=== PATIENT | female | born 1955 | race Caucasian/White ===

== ENCOUNTER 2017-03-10 19:44 | Emergency (ER) | payer MEDICARE, MEDICAID ==
[2017-03-10 20:15] VITALS: BP 153/50
[2017-03-10] MEDS ORDERED: Sodium Chloride 0.9% 1,000 ML IV SCH (20:30)
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
[2017-03-10] MEDS: Sodium Chloride 0.9% 10 ML Syringe FLUSH PRN ×2 (20:51→22:39)
[2017-03-10] MEDS ORDERED: Sodium Chloride 0.9% 10 ML Syringe FLUSH ONE (22:01)
[2017-03-10] MEDS ORDERED: Iopamidol 612 MG/ML 100 ML Bottle IVPUSH ONE (22:01)
[2017-03-10] MEDS ORDERED: Diatrizoate Meglumine/Diatrizoate Sodium 37% 120 ML Bottle PO ONE (22:01)
--- NOTE | 2017-03-13 11:14 | CT ---
CT abdomen and pelvis Technique: Multiple axial sections were obtained from above the dome of the diaphragm inferiorly through the pubic symphysis. Intravenous contrast was utilized. Oral contrast has been given. Delayed images were obtained through the bladder. Comparison: Previous CT abdomen and pelvis exam of 12/12/14 is available. Findings: Liver has a nodular contour presumably representing cirrhosis. Spleen size is normal which appears less prominent in size than on prior CT exam. Slight varicosities are seen within the hilum of the spleen which are stable. Previous cholecystectomy is noted. Adrenal glands show no nodule. Kidneys appear within normal limits. Atherosclerotic change noted within the aorta and within the iliac vessels. No discrete abnormality within the area of the pancreas is seen. Small retroperitoneal lymph nodes are seen which appear stable. No mesenteric abnormalities are seen. No pelvic mass or adenopathy is noted. Appendix not definitely visualized. Scoliosis and degenerative change is seen within the spine. Impression: 1. Findings compatible with cirrhosis. Decreased size of the spleen from prior CT exam. Stable varicosities within splenic hilum. 2. Other incidental findings. Nothing acute is appreciated. Diagnostic code #3 Agree with preliminary report issued by [facility] ([facility] preliminary report dictated on 03/10/17, 11:52 PM Central Time)
== END 2017-03-10 23:28 | disposition home or self-care (01) ==
LOC: JD.ED 19:44
DX: K59.00 Constipation, unspecified (principal); I11.0 Hypertensive heart disease with heart failure; I50.9 Heart failure, unspecified; F31.9 Bipolar disorder, unspecified; F03.90 Unspecified dementia, unspecified severity, without behavioral disturbance, psychotic disturbance, mood disturbance, and anxiety; E11.9 Type 2 diabetes mellitus without complications; E03.9 Hypothyroidism, unspecified; Z90.49 Acquired absence of other specified parts of digestive tract; Z88.7 Allergy status to serum and vaccine; Z79.4 Long term (current) use of insulin; Z79.82 Long term (current) use of aspirin; Z79.899 Other long term (current) drug therapy
CPT/HCPCS: 74177; 96360; 96361; 99284; J7040; J7050; Q9963; Q9967

== ENCOUNTER 2017-08-30 06:53 | Emergency (ER) | payer MEDICARE, MEDICAID ==
[2017-08-30 07:13] VITALS: BP 167/55
[2017-08-30] MEDS ORDERED: Lidocaine/EPINEPHrine/Tetracaine Soln 1 ML TOP ONE (07:25)
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
[2017-08-30] MEDS ORDERED: Diphtheria,Pertussis(Acell),Tetanus Vaccine 0.5 ML SDV IM ONE (08:35)
[2017-08-30] MEDS ORDERED: Lidocaine 1% with EPINEPHrine 1:100,000 20 ML MDV INJECT ONE (09:27)
[2017-08-30] MEDS ORDERED: Lidocaine 1% with EPINEPHrine 1:100,000 20 ML MDV ONE (09:33)
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
== END 2017-08-30 10:00 | disposition home or self-care (01) ==
LOC: JD.ED 06:53
DX: S01.01XA Laceration without foreign body of scalp, initial encounter (principal); I10 Essential (primary) hypertension; E11.9 Type 2 diabetes mellitus without complications; Z79.82 Long term (current) use of aspirin; Z79.4 Long term (current) use of insulin; Z23 Encounter for immunization; Z79.899 Other long term (current) drug therapy; W01.10XA Fall on same level from slipping, tripping and stumbling with subsequent striking against unspecified object, initial encounter
CPT/HCPCS: 12002; 70450; 90471; 90715; 99284; A9270; 99282-25

== ENCOUNTER 2018-01-13 09:54 | Emergency (ER) | payer MEDICARE, MEDICAID ==
[2018-01-13 10:18] VITALS: BP 154/49
--- NOTE | 2018-01-13 10:54 | EDM.PDOC ---
ED HPI GENERAL MEDICAL PROBLEM - General Chief Complaint: Lower Extremity Injury/Pain Stated Complaint: ISSUES W/ CIRCULATION IN BOTH LEGS Time Seen by Provider: 01/13/18 10:48 Source of Information: Reports: Patient, Family (spouse) History Limitations: Reports: No Limitations - History of Present Illness INITIAL COMMENTS - FREE TEXT/NARRATIVE: 62-year-old female who is an insulin-dependent diabetic is sent over from [facility] due to lower extremity swelling and blister formation on toes and dorsal feet. By history she has chronic venous insufficiency continues to have her legs wrapped all time. They have stopped doing this. She clinically has severe hyperpigmentation in both lower extremities which is black in color. She has been diabetic for greater than 5 years. She is not known to have any arterial insufficiency. That think the concern arose as that she's developed a blister formation on the dorsal aspect of her left third toe and mid medial distal right calf. This is oozing serous material. There is no signs of infection either one of these wounds. Similarly she has developed a blister on the dorsal aspect of her right foot has opened up and draining serous material. She has no fever or chills. She relates her blood sugars are staying between 80 and 1:30. She has very tight control with NovoLog 4 times daily and Traseba at bedtime. 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 She apparently has an appointment to see Dr. Raygoza-brazer helper induction on Monday next week and Was her oncologist on Monday. She takes medication daily due to some form of bone marrow dysfunction. It's unclear whether this is due to leukemia or polycythemia rubra vera. She is also on Lasix 40 mg twice daily for chronic dependent edema. Onset: Gradual, Unknown/Unsure (I suspect many months.) Duration: Week(s): (Worse the last few days with blister formation on the feet.) Location: Reports: Lower Extremity, Left, Lower Extremity, Right Quality: Reports: Ache Severity: Moderate Improves with: Reports: None Worsens with: Reports: None Context: Reports: Other (Spontaneous occurrence.). Denies: Activity, Exercise, Lifting, Sick Contact, Trauma Associated Symptoms: Reports: No Other Symptoms. Denies: Confusion, Chest Pain , Cough, cough w sputum, Diaphoresis, Fever/Chills, Headaches, Loss of Appetite , Malaise, Nausea/Vomiting, Rash, Seizure, Shortness of Breath, Syncope - Related Data Allergies Allergy/AdvReac Type Severity Reaction Status Date / Time Influenza Virus Vaccines Allergy Anxiety Verified 01/13/18 10:15 Home Meds: Home Meds Acetaminophen 650 mg PO Q8H PRN 08/31/15 [History] Aspirin 81 mg PO DAILY 08/31/15 [History] Furosemide [Lasix] 40 mg PO BID 08/31/15 [History] Insulin Aspart [Novolog Flexpen] 3 units SUBCUT ASDIRECTED 08/31/15 [History] Insulin Aspart [Novolog Flexpen] 7 units SUBCUT BIDMEALS 08/31/15 [History] Levothyroxine Sodium [Synthroid] 100 mcg PO DAILY 08/31/15 [History] Losartan Potassium [Cozaar] 100 mg PO DAILY 08/31/15 [History] Loxapine Succinate [Loxapine] 25 mg PO DAILY 08/31/15 [History] Loxapine Succinate [Loxapine] 50 mg PO BEDTIME 08/31/15 [History] Metoprolol Succinate [Toprol XL] 25 mg PO DAILY 08/31/15 [History] cloNIDine [Catapres] 0.3 mg PO BID 08/31/15 [History] metFORMIN [Glucophage XR] 500 mg PO BIDMEALS 08/31/15 [History] traZODone 100 mg PO BEDTIME 08/31/15 [History] Dextran 70/Hypromellose [Artificial Tears] 1 each OP BID PRN 10/17/15 [History] Docosanol [Abreva 10%] 1 applic TOP Q6HR PRN 10/17/15 [History] Dextromethorphan/guaiFENesin [Robitussin DM] 10 ml PO Q4H PRN 10/02/16 [History] Imatinib Mesylate [Gleevec] 600 mg PO DAILY 10/02/16 [History] Hydrocodone/Acetaminophen [Hydrocodon-Acetaminophen 5-325] 1 tab PO Q4H PRN [History] Ibuprofen 600 mg PO TID PRN 08/30/17 [History] Memantine HCl [Namenda] 5 mg PO DAILY 08/30/17 [History] Nystatin [Nystatin Crm] 1 applic TOP BID PRN 08/30/17 [History] Phenol [Chloraseptic Throat Fulda] 6 - 10 mg PO Q2H PRN 08/30/17 [History] Temazepam 30 mg PO BEDTIME 08/30/17 [History] atorvaSTATin [Lipitor] 10 mg PO DAILY 08/30/17 [History] Insulin Degludec [Tresiba Flextouch U-100] 20 units SUBCUT QPM 01/13/18 [History ] Past Medical History Other HEENT History: tooth abcess Cardiovascular History: Reports: Heart Failure, Hypertension Other Cardiovascular History: venous insufficiency Other Gastrointestinal History: obesity, ascites Other Musculoskeletal History: fx two bones in foot 2.5yrs ago. Psychiatric History: Reports: Bipolar, Dementia, Depression Other Psychiatric History: Check up with psychiatrist q3-4 months Endocrine/Metabolic History: Reports: Diabetes, Type II, Hypothyroidism Oncologic (Cancer) History: Reports: Leukemia Dermatologic History: Reports: Cellulitis - Infectious Disease History Infectious Disease History: Reports: MRSA Social & Family History - Family History Family Medical History: Noncontributory - Tobacco Use Smoking Status *Q: Unknown Ever Smoked Years of Tobacco use: 36 Used Tobacco, but Quit: No Month/Year Tobacco Last Used: UNKNOWN Second Hand Smoke Exposure: No - Caffeine Use Caffeine Use: Reports: Soda - Alcohol Use Days Per Week of Alcohol Use: 0 Number of Drinks Per Day: 0 Total Drinks Per Week: 0 - Recreational Drug Use Recreational Drug Use: No Drug Use in Last 12 Months: No - Living Situation & Occupation Living situation: Reports: Extended Care Facility Review of Systems - Review of Systems Review Of Systems: See Below Constitutional: Reports: Other (Lethargy.). Denies: Chills, Diaphoresis, Fever , Weakness Eyes: Reports: Other (Does have poor vision related to diabetic) Ears: Reports: No Symptoms ( retinopathy.) Nose: Reports: No Symptoms Mouth/Throat: Reports: No Symptoms Respiratory: Reports: Shortness of Breath. Denies: Wheezing (On exertion.), Pleuritic Chest Pain, Cough, Sputum Cardiovascular: Reports: Edema. Denies: Chest Pain, Irregular Heart Rate ( Chronic bilateral dependent edema.), Lightheadedness, Palpitations, Syncope, Other GI/Abdominal: Reports: No Symptoms Genitourinary: Reports: Other (Urinary frequency with some incontinence usually stress-induced) Musculoskeletal: Reports: Back Pain, Leg Pain (Bilateral leg and foot pain.) Skin: Reports: Other (Breakdown of skin recently on the dorsal aspect of her left third toe and posterior right left calf. Also dorsal aspect of right foot. Chronic venous insufficiency with hyperpigmentation in both lower extremities) Neurological: Reports: Paresthesia (Does have evidence of peripheral neuropathy in both lower extremities.) Psychiatric: Reports: No Symptoms ( evident.) ED EXAM, GENERAL - Physical Exam Exam: See Below Exam Limited By: No Limitations General Appearance: Alert, WD/WN, No Apparent Distress, Other (Quite pallid in appearance.) Eye Exam: Bilateral Eye: Other (Bilateral significant blepharal pallor.) Throat/Mouth: Normal Inspection, Normal Oropharynx Head: Atraumatic, Normocephalic Neck: Normal Inspection, Supple, Non-Tender, Full Range of Motion. No: Carotid Bruit, Lymphadenopathy (L), Lymphadenopathy (R) Respiratory/Chest: No Respiratory Distress, Lungs Clear, Normal Breath Sounds, No Accessory Muscle Use Cardiovascular: Other Peripheral Pulses: 2+: Dorsalis Pedis (L), Dorsalis Pedis (R), 4+: Posterior Tibial (L) (Neither posterior tibial pulses palpable due to edema of the ankles. She has good dorsalis pedis pulses bilaterally.) GI/Abdominal: Normal Bowel Sounds, Soft, Non-Tender, Other (Moderately obese.) Extremities: Other (Examination of the right lower extremity shows moderate dependent edema with marked hyperpigmentation of the entire right anterior leg which is deep black in color and signifies chronicity. There is skin breakdown between the web space of the first and second toes with a blister that has popped in this area. There is no signs of infection in this area. There is a smaller superficial ulcer on the anterior ankle on the right side. On the left side there is a moderate dependent edema I would say 3+. Hyperpigmentation is also present in total anterior leg. She has a superficial ulcer over her left third dorsal toe and medial right distal calf. Both of these are superficial the abril ulcer is oozing some serous material no wounds are infected. ) Neurological: Alert, Oriented, CN II-XII Intact, Normal Cognition Psychiatric: Normal Affect, Normal Mood Skin Exam: Warm, Dry, Intact, Pallor (Marked pallor.) Course - Vital Signs Last Recorded V/S: Last Vital Signs Temp 36.7 C 01/13/18 10:14 Pulse 67 01/13/18 10:14 Resp BP 154/49 H 01/13/18 10:14 Pulse Ox 99 01/13/18 10:14 - Orders/Labs/Meds Labs: Laboratory Tests 01/13/18 01/13/18 01/13/18 Range/Units 11:05 11:05 11:05 WBC 7.36 (3.98-10.04) K/mm3 RBC 2.81 L (3.98-5.22) M/mm3 Hgb 9.7 L (11.2-15.7) gm/L Hct 28.3 L (34.1-44.9) % MCV 100.7 H (79.4-94.8) fl MCH 34.5 H (25.6-32.2) pg MCHC 34.3 (32.2-35.5) g/dl RDW Std Deviation 48.1 H (36.4-46.3) fL Plt Count 209 (182-369) K/mm3 MPV 8.8 L (9.4-12.3) fl Neutrophils % (Manual) 62 H (40-60) % Band Neutrophils % 0 (0-10) % Lymphocytes % (Manual) 30 (20-40) % Atypical Lymphs % 0 % Monocytes % (Manual) 4 (2-10) % Eosinophils % (Manual) 4 (0.7-5.8) % Basophils % (Manual) 0 L (0.1-1.2) Platelet Estimate Adequate Poikilocytosis 1+ slight Anisocytosis 1+ slight Macrocytosis 2+ moderate RBC Morph Comment production operations engineer D-Dimer, Quantitative 1.20 H (0.19-0.50) mg/L Sodium 136 (136-145) mEq/L Potassium 4.1 (3.5-5.1) mEq/L Chloride 101 (98-107) mEq/L Carbon Dioxide 27 (21-32) mEq/L Anion Gap 12.1 (5-15) BUN 29 H (7-18) mg/dL Creatinine 1.2 H (0.55-1.02) mg/dL Est Cr Clr Drug Dosing 36.68 mL/min Estimated GFR (MDRD) 46 (>60) mL/min BUN/Creatinine Ratio 24.2 H (14-18) Glucose 106 (80-115) mg/dL Calcium 9.1 (8.5-10.1) mg/dL Total Bilirubin 0.4 (0.2-1.0) mg/dL AST 33 (15-37) U/L ALT 27 (14-59) U/L Alkaline Phosphatase 68 (46-116) U/L C-Reactive Protein < 0.2 (<1.0) mg/dL Total Protein 7.0 (6.4-8.2) g/dl Albumin 3.5 (3.4-5.0) g/dl Globulin 3.5 gm/dL Albumin/Globulin Ratio 1.0 (1-2) Meds: Medications Discontinued Medications Generic Name Dose Route Start Last Admin Trade Name Freq PRN Reason Stop Dose Admin Furosemide 40 mg 01/13/18 12:08 01/13/18 12:28 Lasix PO 01/13/18 12:09 40 mg ONETIME ONE Administration Insulin Human Regular 7 unit 01/13/18 12:09 01/13/18 12:28 Humulin R SUBCUT 01/13/18 12:10 7 units ONETIME ONE Administration - Radiology Interpretation Free Text/Narrative:: 62-year-old female presents to the ED at the request of [facility] due to discoloration of her lower extremities and development of superficial ulcerations on both feet. She has a chronic dependent edema problem for many years. This is mostly venous insufficiency. I can feel good dorsalis pedis pulses bilaterally in indicating no evidence of air arterial insufficiency. The legs are swollen left to be worrisome for DVT routine labs including a d-dimer will be done by Doppler ultrasound will also be done in both lower extremities. Wounds will be cleansed and dressed with topical bacitracin. - Re-Assessments/Exams Free Text/Narrative Re-Assessment/Exam: 01/13/18 12:10 patient is diabetic and requires her no meal. We will get a diabetic diet for her. She is to take 7 units of NovoLog insulin with each meal and this will be ordered. Shows takes Lasix 40 mg at noon hour as well and this will be ordered. I'm awaiting her every salts on her bilateral lower extremity ultrasound. D-dimer was mildly elevated at 1.20. 01/13/18 12:12 Labs are back revealing a elevated white count at 12.35. Hemoglobin is 12.6 with hematocrit of 38.3. 68% neutrophils and 13% band cells suggesting a bacterial infection. Platelet count is normal at 335,000. Sodium is 141 with a potassium of 4.1. Chloride is 105 with a bicarbonate of 28. And a gap is 12.1. B1 is 11. Creatinine is 0.8. Glucose is 91. Calcium is 9.1. Liver function is normal. C-reactive protein is 0.4 beta-hCG was negative. Lipase normal at 63. Urine shows 1+ protein negative signs of infection. 01/13/18 12:29 radiology reports that there is diffuse mild subcutaneous edema within both lower extremities. There is no evidence of any DVT within either lower extremity. Therefore the current symptoms are chronic with slight worsening due to superficial breakdown left third dorsal toe and left medial distal calf. Also blister formation over the webspace between the first and second toes on the right side that has sloughed without any signs of infection. Wounds were cleansed and antibiotic ointment placed. She has follow-up appointment with Dr. Raygoza brazer helper induction in 3 days time. For now all she can do his elevate the feet is much as possible to try and reduce swelling. I don't see that increased diuretic would make that much difference at this time. Perhaps a small dose of Aldactone twice daily may help alleviate further dependent edema. With skin breakdown she is at risk of infective process. She will daily cleanse the wounds was soap and water apply topical antibiotic ointment. She'll be discharged home once she is completed eating her normal meal. Departure - Departure Time of Disposition: 12:36 Disposition: Home, Self-Care 01 Condition: Fair Clinical Impression: Venous insufficiency (chronic) (peripheral), Skin ulcer of both feet limited to breakdown of skin - Discharge Information Instructions: Blisters, Adult Referrals: Luís Cespedes MD [Primary Care Provider] - Forms: ED Department Discharge Additional Instructions: Evaluation the emergency room today in regards to skin breakdown dorsal aspect of left third toe and medial aspect of left calf. Also blister formation which is broken over the webspace between the first and second toe on the right foot. The wounds are clean at this time with no signs of infection. It is important that these be cleansed daily with soap and water and then topical antibiotic such as bacitracin or Polysporin applied to them and Band-Aids were applicable. Her feet is much as possible for the next 3 days. Discuss further diuretic use with Dr. Coy john with an appointment next week. Follow-up with Dr. Raygoza on Monday next week as planned. Due to your diabetes the wounds are at high risk of becoming infected. The workup today of ultrasound both lower extremities did not show any signs of blood clots in the legs. It showed increased fluid in the soft tissues which we called dependent edema. She is a chronic problem for you. Other than compression stockings above the knee bilaterally no much else is going to help at this point in time. No changes made to your medications at this time.
[2018-01-13] MEDS ORDERED: Furosemide 40 MG Tab PO ONE (12:08)
[2018-01-13] MEDS ORDERED: Insulin Regular, Human 100 Units/ML 3 ML Vial SUBCUT ONE (12:09)
--- NOTE | 2018-01-13 12:27 | US ---
Bilateral lower extremity deep venous ultrasound: Duplex and color flow imaging was obtained of the right and left common femoral, proximal greater saphenous, superficial femoral, popliteal, posterior tibial and peroneal veins. Findings: Peroneal veins are not well seen on both sides to allow for good compression but normal phasic flow and augmentation is seen. Other veins show normal phasic flow, augmentation and compression. Mild subcutaneous edema is seen within both lower extremities. Impression: 1. Mild subcutaneous edema within both lower extremities. 2. No evidence of deep venous thrombosis is seen within either the right or left lower extremity. Diagnostic code #2
== END 2018-01-13 12:55 | disposition home or self-care (01) ==
LOC: JD.ED 09:54
DX: I87.2 Venous insufficiency (chronic) (peripheral) (principal); E11.621 Type 2 diabetes mellitus with foot ulcer; L97.521 Non-pressure chronic ulcer of other part of left foot limited to breakdown of skin; L97.511 Non-pressure chronic ulcer of other part of right foot limited to breakdown of skin; I11.0 Hypertensive heart disease with heart failure; I50.9 Heart failure, unspecified; E03.9 Hypothyroidism, unspecified; Z88.7 Allergy status to serum and vaccine; Z79.82 Long term (current) use of aspirin; Z79.4 Long term (current) use of insulin; Z79.899 Other long term (current) drug therapy; Z91.040 Latex allergy status
CPT/HCPCS: 36415; 80053; 85025; 85379; 86140; 93970; 96372; 99284; A9270; J1815

== ENCOUNTER 2018-01-19 05:15 | Inpatient (IN) | payer MEDICARE, MEDICAID ==
[2018-01-19] MEDS ORDERED: HYDROmorphone 0.5 MG/0.5 ML SYRINGE IVPUSH ONE ×2 (05:24→07:32)
[2018-01-19] MEDS ORDERED: Ondansetron 4 MG/2 ML SDV IVPUSH ONE (05:24)
[2018-01-19] MEDS ORDERED: Sodium Chloride 0.9% 1,000 ML IV SCH (05:30)
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
--- NOTE | 2018-01-19 08:06 | CT ---
CT pelvis Technique: Multiple axial sections through the pelvis were obtained. Reconstructed coronal and sagittal images were reviewed. Comparison: Previous plain film AP pelvis radiograph performed on the same day (5:58 AM). Findings: Displaced proximal left femoral shaft fracture is again noted. Well-corticated bony density is seen off the posterior aspect of the right ischial tuberosity which appears old and is felt to be dystrophic and incidental. No acute fracture is seen within the pelvis. Degenerative change is partially visualized within the lumbar spine. Vascular calcification is noted. Impression: 1. Displaced proximal shaft fracture within the left femur again noted. 2. Other incidental findings. No additional acute finding is seen on CT study of the pelvis. Diagnostic code #3
--- NOTE | 2018-01-19 08:06 | CR ---
Left femur: AP and lateral views of the left femur were obtained. Angulated and displaced fracture identified within the proximal one third diaphysis of the femur. Displacement seen by over a shaft width. Medial joint space narrowing seen within the left knee. Vascular calcification is also seen. No additional abnormality is identified. Impression: 1. Displaced and angulated proximal left femoral fracture. Diagnostic code #5
--- NOTE | 2018-01-19 09:02 | CR ---
Chest: Frontal view of the chest was obtained. Comparison: Prior chest x-ray of 08/31/15. Heart size and mediastinum are normal. Lungs are clear. Bony structures are grossly intact. Impression: 1. Nothing acute is seen on frontal chest x-ray. Diagnostic code #1
--- NOTE | 2018-01-19 09:02 | CR ---
Pelvis: AP view of the pelvis was obtained. Comparison: No prior pelvis x-ray. Displaced proximal left femoral fracture is again noted. Joint spaces within both hips are maintained. Sacroiliac joints are within normal limits. No additional fracture or other abnormality is identified. Well-corticated calcification is seen inferior to the medial right hip which appears old and likely represents dystrophic calcification. Impression: 1. Displaced proximal left femoral shaft fracture. 2. Other incidental findings. Diagnostic code #3
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
--- NOTE | 2018-01-19 10:11 | PCM.PREANE ---
Preanesthetic Assessment - Anesthesia/Transfusion/Family Hx Anesthesia History: Prior Anesthesia Without Reaction Family History of Anesthesia Reaction: No Transfusion History: No Prior Transfusion(s) - Review of Systems General: Weakness Pulmonary: Shortness of Breath Cardiovascular: No Symptoms (HTN, CHF), Other (Venous insuficiency lower extremities) Gastrointestinal: Vomiting (Episode yesterday of projective vomiting. None since. Abdominal CT done. ) Neurological: Pre-Existing Deficit, Difficulty Walking Other: Reports: Diabetes, Liver Problems (History of hepatitis), Thyroid Problems, Depression (Bipolar/Schizoaffective disorder) - Physical Assessment NPO Status Date: 01/19/18 (Ice chips until 0901/20/18) NPO Status Time: 09:00 (Pudding ) Pulse: 96 O2 Sat by Pulse Oximetry: 99 Respiratory Rate: 20 Blood Pressure: 164/38 Temperature: 36.5 C Vital Signs: Last Vital Signs Temp 36.5 C 01/19/18 08:28 Pulse 96 01/19/18 08:28 Resp 20 01/19/18 08:28 BP 164/38 H 01/19/18 08:47 Pulse Ox 99 01/19/18 08:28 Height: 1.5 m Weight: 78.925 kg ASA Class: 3E Mental Status: Alert & Oriented x3 Airway Class: Mallampati = 2 Dentition: Reports: Missing Tooth/Teeth Thyro-Mental Finger Breadths: 3 Mouth Opening Finger Breadths: 3 ROM/Head Extension: Full Lungs: Clear to Auscultation, Normal Respiratory Effort Cardiovascular: Regular Rate, Regular Rhythm - Lab Values: Laboratory Last Values WBC 8.39 K/mm3 (3.98-10.04) 01/19/18 05:45 RBC 2.92 M/mm3 (3.98-5.22) L 01/19/18 05:45 Hgb 10.1 gm/L (11.2-15.7) L 01/19/18 05:45 Hct 29.2 % (34.1-44.9) L 01/19/18 05:45 MCV 100.0 fl (79.4-94.8) H 01/19/18 05:45 MCH 34.6 pg (25.6-32.2) H 01/19/18 05:45 MCHC 34.6 g/dl (32.2-35.5) 01/19/18 05:45 RDW Std Deviation 48.8 fL (36.4-46.3) H 01/19/18 05:45 Plt Count 254 K/mm3 (182-369) 01/19/18 05:45 MPV 8.8 fl (9.4-12.3) L 01/19/18 05:45 Neutrophils % (Manual) 63 % (40-60) H 01/19/18 05:45 Band Neutrophils % 0 % (0-10) 01/19/18 05:45 Lymphocytes % (Manual) 28 % (20-40) 01/19/18 05:45 Atypical Lymphs % 0 % 01/19/18 05:45 Monocytes % (Manual) 3 % (2-10) 01/19/18 05:45 Eosinophils % (Manual) 6 % (0.7-5.8) H 01/19/18 05:45 Basophils % (Manual) 0 (0.1-1.2) L 01/19/18 05:45 Platelet Estimate Adequate 01/19/18 05:45 Poikilocytosis Few 01/19/18 05:45 Anisocytosis 1+ slight 01/19/18 05:45 Macrocytosis 1+ slight 01/19/18 05:45 RBC Morph Comment Not Reportable 01/19/18 05:45 PT 11.4 SECONDS (9.5-12.1) 01/19/18 05:45 INR 1.05 01/19/18 05:45 APTT 25 SECONDS (24-31) 01/19/18 05:45 Sodium 130 mEq/L (136-145) L 01/19/18 05:45 Potassium 4.2 mEq/L (3.5-5.1) 01/19/18 05:45 Chloride 94 mEq/L (98-107) L 01/19/18 05:45 Carbon Dioxide 28 mEq/L (21-32) 01/19/18 05:45 Anion Gap 12.2 (5-15) 01/19/18 05:45 BUN 23 mg/dL (7-18) H 01/19/18 05:45 Creatinine 1.2 mg/dL (0.55-1.02) H 01/19/18 05:45 Est Cr Clr Drug Dosing 34.91 mL/min 01/19/18 05:45 Estimated GFR (MDRD) 46 mL/min (>60) 01/19/18 05:45 BUN/Creatinine Ratio 19.2 (14-18) H 01/19/18 05:45 Glucose 127 mg/dL (80-115) H 01/19/18 05:45 Calcium 8.9 mg/dL (8.5-10.1) 01/19/18 05:45 Magnesium 2.1 mg/dl (1.8-2.4) 01/19/18 05:45 Total Bilirubin 0.4 mg/dL (0.2-1.0) 01/19/18 05:45 AST 37 U/L (15-37) 01/19/18 05:45 ALT 28 U/L (14-59) 01/19/18 05:45 Alkaline Phosphatase 72 U/L (46-116) 01/19/18 05:45 NT-Pro-B Natriuret Pep 236 pg/mL (0-125) H 01/19/18 05:45 Total Protein 6.9 g/dl (6.4-8.2) 01/19/18 05:45 Albumin 3.6 g/dl (3.4-5.0) 01/19/18 05:45 Globulin 3.3 gm/dL 01/19/18 05:45 Albumin/Globulin Ratio 1.1 (1-2) 01/19/18 05:45 Blood Type A POSITIVE 01/19/18 05:45 Gel Antibody Screen Negative 01/19/18 05:45 Crossmatch See Detail 01/19/18 05:45 - Allergies Allergies/Adverse Reactions: Allergies Allergy/AdvReac Type Severity Reaction Status Date / Time Influenza Virus Vaccines AdvReac Anxiety Verified 01/19/18 09:58 - Blood Blood Available: Yes Product(s) Available: PRBC - Anesthesia Plan Beta Bryon: Metoprolol Med Last Dose Date: 01/19/18 Med Last Dose Time: 18:00 - Acknowledgements Anesthesia Type Planned: Spinal Pt an Appropriate Candidate for the Planned Anesthesia: Yes Alternatives and Risks of Anesthesia Discussed w Pt/Guardian: Yes Pt/Guardian Understands and Agrees with Anesthesia Plan: Yes PreAnesthesia Questionnaire Other HEENT History: tooth abcess Cardiovascular History: Reports: Heart Failure, High Cholesterol, Hypertension, Other (See Below) Other Cardiovascular History: venous insufficiency, atypical chest pain; angina pectoris inspecified. Gastrointestinal History: Reports: GERD Other Gastrointestinal History: obesity, ascites Musculoskeletal History: Reports: Fracture Other Musculoskeletal History: fx two bones in foot 2.5yrs ago. Neurological History: Reports: Brain Injury, Other (See Below) Other Neuro History: personal history of traumatic brain injury Psychiatric History: Reports: Bipolar, Dementia, Depression Other Psychiatric History: Check up with psychiatrist q3-4 months Endocrine/Metabolic History: Reports: Diabetes, Type II, Hypothyroidism, Obesity /BMI 30+ Oncologic (Cancer) History: Reports: Leukemia Dermatologic History: Reports: Cellulitis - Infectious Disease History Infectious Disease History: Reports: MRSA - Past Surgical History HEENT Surgical History: Reports: Cataract Surgery, Oral Surgery (Tooth extraction) - SUBSTANCE USE Smoking Status *Q: Former Smoker Tobacco Use Within Last Twelve Months: No Second Hand Smoke Exposure: No Days Per Week of Alcohol Use: 0 Number of Drinks Per Day: 0 Total Drinks Per Week: 0 Recreational Drug Use History: No - HOME MEDS Home Medications: Home Meds Acetaminophen 650 mg PO Q8H PRN 08/31/15 [History] Aspirin 81 mg PO DAILY 08/31/15 [History] Furosemide [Lasix] 40 mg PO TID 08/31/15 [History] Insulin Aspart [Novolog Flexpen] 3 units SUBCUT ACDINNER 08/31/15 [History] Insulin Aspart [Novolog Flexpen] 7 units SUBCUT BIDMEALS 08/31/15 [History] Levothyroxine Sodium [Synthroid] 100 mcg PO DAILY 08/31/15 [History] Losartan Potassium [Cozaar] 100 mg PO DAILY 08/31/15 [History] Loxapine Succinate [Loxapine] 25 mg PO DAILY 08/31/15 [History] Loxapine Succinate [Loxapine] 50 mg PO BEDTIME 08/31/15 [History] Metoprolol Succinate [Toprol XL] 25 mg PO DAILY 08/31/15 [History] cloNIDine [Catapres] 0.3 mg PO BID 08/31/15 [History] traZODone 100 mg PO BEDTIME 08/31/15 [History] Docosanol [Abreva 10%] 1 applic TOP Q6HR PRN 10/17/15 [History] Dextromethorphan/guaiFENesin [Robitussin DM] 10 ml PO Q4H PRN 10/02/16 [History] Imatinib Mesylate [Gleevec] 600 mg PO DAILY 10/02/16 [History] Ibuprofen 600 mg PO TID PRN 08/30/17 [History] Memantine HCl [Namenda] 5 mg PO DAILY 08/30/17 [History] Nystatin [Nystatin Crm] 1 applic TOP BID PRN 08/30/17 [History] Temazepam 30 mg PO BEDTIME 08/30/17 [History] atorvaSTATin [Lipitor] 10 mg PO DAILY 08/30/17 [History] Insulin Degludec [Tresiba Flextouch U-100] 20 units SUBCUT QPM 01/13/18 [History ] Bacitracin [Bacitracin Oint] 1 applic TOP DAILY 01/19/18 [History] Benzocaine/Menthol [Chloraseptic Sore Throat Leon] 1 lozenge PO Q2HR PRN [History] Carboxymethylcellulose Sodium [Refresh Tears 0.5% Ophth Soln] 1 drop EYEBOTH BID 01/19/18 [History] Dextran 70/Hypromellose [Artificial Tears] 1 drop EYEBOTH BID 01/19/18 [History] Ondansetron [Zofran ODT] 4 mg SL Q4HR PRN 01/19/18 [History] Spironolactone [Aldactone] 25 mg PO DAILY 01/19/18 [History] metFORMIN HCl [Metformin HCl] 500 mg PO BIDMEALS 01/19/18 [History] - CURRENT (IN HOUSE) MEDS Current Meds: Current Medications Sodium Chloride (Normal Saline) 1,000 mls @ 250 mls/hr IV ASDIRECTED [facility] Last Admin: 01/19/18 05:47 Dose: 250 mls/hr Ondansetron HCl (Zofran) 4 mg IVPUSH Q4H PRN PRN Reason: Nausea/Vomiting Discontinued Medications Hydromorphone HCl (Dilaudid) 1 mg IVPUSH ONETIME ONE Stop: 01/19/18 05:25 Last Admin: 01/19/18 05:48 Dose: 1 mg Hydromorphone HCl (Dilaudid) 0.5 mg IVPUSH ONETIME ONE Stop: 01/19/18 07:33 Last Admin: 01/19/18 07:53 Dose: 0.5 mg Ondansetron HCl (Zofran) 4 mg IVPUSH ONETIME ONE Stop: 01/19/18 05:25 Last Admin: 01/19/18 05:47 Dose: 4 mg
--- NOTE | 2018-01-19 10:38 | CT ---
CT cervical spine Technique: Multiple axial sections were obtained from above the C1 inferiorly to the bottom of T3. Reconstructed sagittal and coronal images were reviewed. Comparison: Prior CT cervical spine exam of 03/07/11. Findings: Fairly severe disc space narrowing is noted at C5-C6 and C6-C7 with anterior osteophytes. Mild posterior osteophytes are seen at both these levels. Disc protrusion is seen at the inferior endplate of C5. Mild degenerative change is scattered within the apophyseal joints. Mild scoliosis is seen. No fracture is identified. Mild neural foraminal stenosis noted on the right side at C6-C7. Mild bilateral neural foraminal stenosis noted at C5-C6. Other neural foramina are felt to be fairly well patent. No abnormal subluxation is seen. Impression: 1. Degenerative change. This degenerative change has appeared from previous study. 2. Nothing acute is appreciated on CT study of the cervical spine. Diagnostic code #2 Agree with preliminary report issued by [facility] (preliminary report was available on 01/19/18, 8:21 AM Central Time)
[2018-01-19] MEDS: Ketorolac 15 MG/ML SDV IVPUSH SCH ×3 (11:15→22:59)
[2018-01-19] MEDS: traMADol 50 MG Tab PO SCH ×2 (11:17→18:04)
[2018-01-19] MEDS: Lactated Ringers 1,000 ML IV SCH (11:19)
[2018-01-19] MEDS ORDERED: Docusate Sodium 100 MG Cap PO PRN (11:47)
[2018-01-19] MEDS ORDERED: Albuterol/Ipratropium 3.0-0.5 MG/3 ML Neb Soln NEB PRN (11:47)
[2018-01-19] MEDS ORDERED: Albuterol 0.083% 2.5 MG/3 ML Neb Soln NEB PRN (11:47)
[2018-01-19] MEDS ORDERED: Bisacodyl 5 MG Tab PO PRN (11:47)
[2018-01-19] MEDS ORDERED: Glucose Gel 15 GM in 37.5 GM Tube PO PRN (12:11)
[2018-01-19] MEDS ORDERED: Famotidine 20 MG Tab PO SCH (12:30)
[2018-01-19] MEDS ORDERED: Hypromellose 0.5% Ophth Soln 15 ML Bottle EYEBOTH SCH ×2 (13:00→13:45)
[2018-01-19] MEDS: Ondansetron 4 MG/2 ML SDV IVPUSH PRN ×2 (13:10→21:15)
[2018-01-19] MEDS ORDERED: Losartan 100 MG Tab PO SCH (13:15)
[2018-01-19] MEDS ORDERED: Metoprolol Succinate 25 MG Tab.ER PO SCH (13:15)
[2018-01-19] MEDS ORDERED: LOXAPINE 25 MG PO SCH (14:00)
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
[2018-01-19] MEDS: Memantine 10 MG Tab PO SCH (14:19)
[2018-01-19] MEDS: Levothyroxine 100 MCG Tab PO SCH (14:19)
[2018-01-19] MEDS ORDERED: Furosemide 40 MG Tab PO SCH (15:00)
[2018-01-19] MEDS ORDERED: Iopamidol 612 MG/ML 100 ML Bottle IVPUSH ONE (15:45)
[2018-01-19] MEDS ORDERED: Pantoprazole 40 MG Vial IVPUSH SCH (15:45)
[2018-01-19] MEDS: Sodium Chloride 0.9% 10 ML Syringe FLUSH PRN (15:49)
[2018-01-19] MEDS: Pantoprazole 40 MG Vial IVPUSH SCH (16:15)
--- NOTE | 2018-01-19 16:16 | CT ---
CT abdomen and pelvis Technique: Multiple axial sections were obtained from above the dome of the diaphragm inferiorly through the pubic symphysis. Intravenous contrast was utilized. No oral contrast was given which limits evaluation of bowel processes. Delayed images were also obtained through the bladder. Comparison: Previous CT abdomen and pelvis exam of 6003/10/17. Findings: Visualized lung bases shows nothing acute. Liver shows no focal parenchymal abnormality. Surgical clips are seen from prior cholecystectomy. Small hiatal hernia is noted. Spleen appears within normal limits. Adrenal glands show no nodule. Kidneys show symmetric contrast enhancement. Increased density is identified around the lower kidneys which appears chronic and likely due to mild scarring within the perirenal fat. Delayed images shows contrast within distal ureters and within the bladder. Air noted within the bladder presumably from recent instrumentation. Londono catheter is present within the bladder. Pancreas appears atrophied. Aorta shows atherosclerotic change which continues into the iliac vessels without aneurysm. No retroperitoneal adenopathy or mesenteric abnormalities are seen. Diverticuli are seen mostly within the sigmoid colon without evidence of diverticulitis. Displaced femoral shaft fracture is seen proximally. No bowel dilatation is seen. Degenerative change is noted within the spine with mild scoliosis. Appendix not visualized with certainty. Impression: 1. No bowel dilatation is seen. 2. Displaced proximal femur fracture is again noted on the left side. 3. Other incidental findings as described above. Diagnostic code #3
[2018-01-19] MEDS ORDERED: metFORMIN 500 MG Tab PO SCH (17:00)
[2018-01-19] MEDS ORDERED: Naloxone 2 MG/2 ML Syringe IVPUSH ONE (17:03)
[2018-01-19] MEDS: hydrALAZINE 20 MG/ML SDV IVPUSH PRN (17:28)
[2018-01-19] MEDS: LOXAPINE 25 MG PO SCH (17:40)
[2018-01-19] MEDS: Insulin Aspart 100 Units/ML 3 ML Pen SUBCUT SCH ×2 (17:54→21:10)
[2018-01-19] MEDS: Metoprolol Tartrate 5 MG/5 ML SDV IVPUSH PRN (18:03)
[2018-01-19] MEDS ORDERED: 50% Dextrose in Water 50 ML Syringe IVPUSH PRN (18:42)
[2018-01-19] MEDS: Acetaminophen 325 MG Tab PO PRN (19:01)
[2018-01-19] MEDS: Cyclobenzaprine 10 MG Tab PO PRN (19:02)
[2018-01-19] MEDS ORDERED: cloNIDine 0.1 MG Tab PO ONE (19:37)
[2018-01-19] MEDS: Hypromellose 0.5% Ophth Soln 15 ML Bottle EYEBOTH SCH (20:00)
[2018-01-19] MEDS: traZODone 50 MG Tab PO SCH (20:01)
[2018-01-19] MEDS: Simvastatin 10 MG Tab PO SCH (20:01)
[2018-01-19] MEDS: Temazepam 7.5 MG Cap PO SCH (20:02)
[2018-01-19] MEDS ORDERED: cloNIDine 0.1 MG Tab PO SCH (21:00)
[2018-01-19] MEDS ORDERED: Temazepam 30 MG Cap PO SCH (21:00)
[2018-01-19] MEDS: HYDROmorphone 0.5 MG/0.5 ML SYRINGE IVPUSH PRN (21:15)
[2018-01-20] MEDS: traMADol 50 MG Tab PO SCH ×3 (02:56→18:03)
[2018-01-20] MEDS: Lactated Ringers 1,000 ML IV SCH ×2 (02:56→10:42)
[2018-01-20] MEDS: Cyclobenzaprine 10 MG Tab PO PRN (02:56)
[2018-01-20] MEDS: cloNIDine 0.1 MG Tab PO SCH ×3 (03:03→20:15)
[2018-01-20] MEDS ORDERED: Furosemide 40 MG/4 ML VIAL IVPUSH ONE (05:00)
[2018-01-20] MEDS: Ketorolac 15 MG/ML SDV IVPUSH SCH ×3 (06:00→18:02)
[2018-01-20] MEDS: Levothyroxine 100 MCG Tab PO SCH (06:35)
[2018-01-20] MEDS: Insulin Aspart 100 Units/ML 3 ML Pen SUBCUT SCH ×4 (07:33→22:07)
[2018-01-20] MEDS: Acetaminophen 325 MG Tab PO PRN (08:27)
[2018-01-20] MEDS: hydrALAZINE 20 MG/ML SDV IVPUSH PRN (08:57)
[2018-01-20] MEDS ORDERED: Furosemide 40 MG Tab PO SCH ×2 (09:00)
[2018-01-20] MEDS: Spironolactone 25 MG Tab PO SCH (09:37)
[2018-01-20] MEDS: Hypromellose 0.5% Ophth Soln 15 ML Bottle EYEBOTH SCH ×2 (09:37→20:47)
[2018-01-20] MEDS: Pantoprazole 40 MG Vial IVPUSH SCH (09:37)
[2018-01-20] MEDS: Memantine 10 MG Tab PO SCH (09:37)
[2018-01-20] MEDS: IMATINIB MESYLATE 600 MG PO SCH (09:38)
--- NOTE | 2018-01-20 10:31 | PCM.PN ---
- General Info Date of Service: 01/20/18 Subjective Update: Answer appropriately, has been NPO; may proceed to surgery, ortho has been contacted. Functional Status: Reports: Pain Controlled, Urinating - Review of Systems General: Reports: No Symptoms HEENT: Reports: No Symptoms Pulmonary: Reports: No Symptoms Cardiovascular: Reports: No Symptoms Gastrointestinal: Reports: No Symptoms Genitourinary: Reports: No Symptoms Musculoskeletal: Reports: No Symptoms Skin: Reports: No Symptoms Neurological: Reports: No Symptoms Psychiatric: Reports: No Symptoms - Patient Data Vitals - Most Recent: Last Vital Signs Temp 37.3 C 01/20/18 08:00 Pulse 86 01/20/18 08:00 Resp 18 01/20/18 08:00 BP 177/54 H 01/20/18 08:00 Pulse Ox 100 01/20/18 08:00 Weight - Most Recent: 84.323 kg I&O - Last 24 Hours: Intake & Output 01/19/18 01/20/18 01/20/18 22:59 06:59 14:59 Intake Total 1870 971 100 Output Total 1690 445 740 Balance 180 526 -640 Lab Results Last 24 Hours: Laboratory Results - last 24 hr 01/19/18 01/19/18 01/19/18 Range/Units 05:45 11:11 16:46 WBC (3.98-10.04) K/mm3 RBC (3.98-5.22) M/mm3 Hgb 8.7 L (11.2-15.7) gm/L Hct (34.1-44.9) % MCV (79.4-94.8) fl MCH (25.6-32.2) pg MCHC (32.2-35.5) g/dl RDW Std Deviation (36.4-46.3) fL Plt Count (182-369) K/mm3 MPV (9.4-12.3) fl Neut % (Auto) (34.0-71.1) % Lymph % (Auto) (19.3-51.7) % [place] % (Auto) (4.7-12.5) % Eos % (Auto) (0.7-5.8) Baso % (Auto) (0.1-1.2) % Neut # (Auto) (1.56-6.13) K/mm3 Lymph # (Auto) (1.18-3.74) K/mm3 [place] # (Auto) (0.24-0.36) K/mm3 Eos # (Auto) (0.04-0.36) K/mm3 Baso # (Auto) (0.01-0.08) K/mm3 PT (9.5-12.1) SECONDS INR Sodium (136-145) mEq/L Potassium (3.5-5.1) mEq/L Chloride (98-107) mEq/L Carbon Dioxide (21-32) mEq/L Anion Gap (5-15) BUN (7-18) mg/dL Creatinine (0.55-1.02) mg/dL Est Cr Clr Drug Dosing mL/min Estimated GFR (MDRD) (>60) mL/min BUN/Creatinine Ratio (14-18) Glucose (80-115) mg/dL POC Glucose 147 H (80-115) mg/dL Hemoglobin A1c (4.50-6.20) % Lactic Acid (0.4-2.0) mmol/L Calcium (8.5-10.1) mg/dL Magnesium (1.8-2.4) mg/dl Total Bilirubin (0.2-1.0) mg/dL AST (15-37) U/L ALT (14-59) U/L Alkaline Phosphatase (46-116) U/L C-Reactive Protein (<1.0) mg/dL NT-Pro-B Natriuret Pep (0-125) pg/mL Total Protein (6.4-8.2) g/dl Albumin (3.4-5.0) g/dl Globulin gm/dL Albumin/Globulin Ratio (1-2) MRSA (PCR) Blood Type A POSITIVE Gel Antibody Screen Negative Crossmatch See Detail 01/19/18 01/19/18 01/20/18 Range/Units 17:48 20:25 03:01 WBC (3.98-10.04) K/mm3 RBC (3.98-5.22) M/mm3 Hgb (11.2-15.7) gm/L Hct (34.1-44.9) % MCV (79.4-94.8) fl MCH (25.6-32.2) pg MCHC (32.2-35.5) g/dl RDW Std Deviation (36.4-46.3) fL Plt Count (182-369) K/mm3 MPV (9.4-12.3) fl Neut % (Auto) (34.0-71.1) % Lymph % (Auto) (19.3-51.7) % [place] % (Auto) (4.7-12.5) % Eos % (Auto) (0.7-5.8) Baso % (Auto) (0.1-1.2) % Neut # (Auto) (1.56-6.13) K/mm3 Lymph # (Auto) (1.18-3.74) K/mm3 [place] # (Auto) (0.24-0.36) K/mm3 Eos # (Auto) (0.04-0.36) K/mm3 Baso # (Auto) (0.01-0.08) K/mm3 PT (9.5-12.1) SECONDS INR Sodium (136-145) mEq/L Potassium (3.5-5.1) mEq/L Chloride (98-107) mEq/L Carbon Dioxide (21-32) mEq/L Anion Gap (5-15) BUN (7-18) mg/dL Creatinine (0.55-1.02) mg/dL Est Cr Clr Drug Dosing mL/min Estimated GFR (MDRD) (>60) mL/min BUN/Creatinine Ratio (14-18) Glucose (80-115) mg/dL POC Glucose 132 H 155 H 122 H (80-115) mg/dL Hemoglobin A1c (4.50-6.20) % Lactic Acid (0.4-2.0) mmol/L Calcium (8.5-10.1) mg/dL Magnesium (1.8-2.4) mg/dl Total Bilirubin (0.2-1.0) mg/dL AST (15-37) U/L ALT (14-59) U/L Alkaline Phosphatase (46-116) U/L C-Reactive Protein (<1.0) mg/dL NT-Pro-B Natriuret Pep (0-125) pg/mL Total Protein (6.4-8.2) g/dl Albumin (3.4-5.0) g/dl Globulin gm/dL Albumin/Globulin Ratio (1-2) MRSA (PCR) Blood Type Gel Antibody Screen Crossmatch 01/20/18 01/20/18 01/20/18 Range/Units 04:00 05:06 06:04 WBC 9.37 (3.98-10.04) K/mm3 RBC 3.48 L (3.98-5.22) M/mm3 Hgb 11.3 (11.2-15.7) gm/L Hct 32.7 L (34.1-44.9) % MCV 94.0 (79.4-94.8) fl MCH 32.5 H (25.6-32.2) pg MCHC 34.6 (32.2-35.5) g/dl RDW Std Deviation 55.0 H (36.4-46.3) fL Plt Count 158 L (182-369) K/mm3 MPV 9.2 L (9.4-12.3) fl Neut % (Auto) 62.6 (34.0-71.1) % Lymph % (Auto) 24.5 (19.3-51.7) % [place] % (Auto) 11.0 (4.7-12.5) % Eos % (Auto) 1.4 (0.7-5.8) Baso % (Auto) 0.3 (0.1-1.2) % Neut # (Auto) 5.86 (1.56-6.13) K/mm3 Lymph # (Auto) 2.30 (1.18-3.74) K/mm3 [place] # (Auto) 1.03 H (0.24-0.36) K/mm3 Eos # (Auto) 0.13 (0.04-0.36) K/mm3 Baso # (Auto) 0.03 (0.01-0.08) K/mm3 PT (9.5-12.1) SECONDS INR Sodium 132 L (136-145) mEq/L Potassium 4.2 (3.5-5.1) mEq/L Chloride 98 (98-107) mEq/L Carbon Dioxide 27 (21-32) mEq/L Anion Gap 11.2 (5-15) BUN 18 (7-18) mg/dL Creatinine 1.1 H (0.55-1.02) mg/dL Est Cr Clr Drug Dosing 38.09 mL/min Estimated GFR (MDRD) 50 (>60) mL/min BUN/Creatinine Ratio 16.4 (14-18) Glucose 114 (80-115) mg/dL POC Glucose (80-115) mg/dL Hemoglobin A1c (4.50-6.20) % Lactic Acid (0.4-2.0) mmol/L Calcium 8.6 (8.5-10.1) mg/dL Magnesium 2.0 (1.8-2.4) mg/dl Total Bilirubin 1.2 H (0.2-1.0) mg/dL AST 55 H (15-37) U/L ALT 30 (14-59) U/L Alkaline Phosphatase 72 (46-116) U/L C-Reactive Protein 0.7 (<1.0) mg/dL NT-Pro-B Natriuret Pep (0-125) pg/mL Total Protein 6.5 (6.4-8.2) g/dl Albumin 3.3 L (3.4-5.0) g/dl Globulin 3.2 gm/dL Albumin/Globulin Ratio 1.0 (1-2) MRSA (PCR) Positive H Blood Type Gel Antibody Screen Crossmatch 01/20/18 01/20/18 01/20/18 Range/Units 06:04 06:04 06:04 WBC (3.98-10.04) K/mm3 RBC (3.98-5.22) M/mm3 Hgb (11.2-15.7) gm/L Hct (34.1-44.9) % MCV (79.4-94.8) fl MCH (25.6-32.2) pg MCHC (32.2-35.5) g/dl RDW Std Deviation (36.4-46.3) fL Plt Count (182-369) K/mm3 MPV (9.4-12.3) fl Neut % (Auto) (34.0-71.1) % Lymph % (Auto) (19.3-51.7) % [place] % (Auto) (4.7-12.5) % Eos % (Auto) (0.7-5.8) Baso % (Auto) (0.1-1.2) % Neut # (Auto) (1.56-6.13) K/mm3 Lymph # (Auto) (1.18-3.74) K/mm3 [place] # (Auto) (0.24-0.36) K/mm3 Eos # (Auto) (0.04-0.36) K/mm3 Baso # (Auto) (0.01-0.08) K/mm3 PT (9.5-12.1) SECONDS INR Sodium (136-145) mEq/L Potassium (3.5-5.1) mEq/L Chloride (98-107) mEq/L Carbon Dioxide (21-32) mEq/L Anion Gap (5-15) BUN (7-18) mg/dL Creatinine (0.55-1.02) mg/dL Est Cr Clr Drug Dosing mL/min Estimated GFR (MDRD) (>60) mL/min BUN/Creatinine Ratio (14-18) Glucose (80-115) mg/dL POC Glucose (80-115) mg/dL Hemoglobin A1c 5.00 (4.50-6.20) % Lactic Acid 1.4 (0.4-2.0) mmol/L Calcium (8.5-10.1) mg/dL Magnesium (1.8-2.4) mg/dl Total Bilirubin (0.2-1.0) mg/dL AST (15-37) U/L ALT (14-59) U/L Alkaline Phosphatase (46-116) U/L C-Reactive Protein (<1.0) mg/dL NT-Pro-B Natriuret Pep 1891 H (0-125) pg/mL Total Protein (6.4-8.2) g/dl Albumin (3.4-5.0) g/dl Globulin gm/dL Albumin/Globulin Ratio (1-2) MRSA (PCR) Blood Type Gel Antibody Screen Crossmatch 01/20/18 Range/Units 06:04 WBC (3.98-10.04) K/mm3 RBC (3.98-5.22) M/mm3 Hgb (11.2-15.7) gm/L Hct (34.1-44.9) % MCV (79.4-94.8) fl MCH (25.6-32.2) pg MCHC (32.2-35.5) g/dl RDW Std Deviation (36.4-46.3) fL Plt Count (182-369) K/mm3 MPV (9.4-12.3) fl Neut % (Auto) (34.0-71.1) % Lymph % (Auto) (19.3-51.7) % [place] % (Auto) (4.7-12.5) % Eos % (Auto) (0.7-5.8) Baso % (Auto) (0.1-1.2) % Neut # (Auto) (1.56-6.13) K/mm3 Lymph # (Auto) (1.18-3.74) K/mm3 [place] # (Auto) (0.24-0.36) K/mm3 Eos # (Auto) (0.04-0.36) K/mm3 Baso # (Auto) (0.01-0.08) K/mm3 PT 11.4 (9.5-12.1) SECONDS INR 1.05 Sodium (136-145) mEq/L Potassium (3.5-5.1) mEq/L Chloride (98-107) mEq/L Carbon Dioxide (21-32) mEq/L Anion Gap (5-15) BUN (7-18) mg/dL Creatinine (0.55-1.02) mg/dL Est Cr Clr Drug Dosing mL/min Estimated GFR (MDRD) (>60) mL/min BUN/Creatinine Ratio (14-18) Glucose (80-115) mg/dL POC Glucose (80-115) mg/dL Hemoglobin A1c (4.50-6.20) % Lactic Acid (0.4-2.0) mmol/L Calcium (8.5-10.1) mg/dL Magnesium (1.8-2.4) mg/dl Total Bilirubin (0.2-1.0) mg/dL AST (15-37) U/L ALT (14-59) U/L Alkaline Phosphatase (46-116) U/L C-Reactive Protein (<1.0) mg/dL NT-Pro-B Natriuret Pep (0-125) pg/mL Total Protein (6.4-8.2) g/dl Albumin (3.4-5.0) g/dl Globulin gm/dL Albumin/Globulin Ratio (1-2) MRSA (PCR) Blood Type Gel Antibody Screen Crossmatch Med Orders - Current: Current Medications Acetaminophen (Tylenol) 650 mg PO Q6H PRN PRN Reason: Pain/Fever Last Admin: 01/20/18 08:27 Dose: 650 mg Albuterol (Proventil Neb Soln) 2.5 mg NEB Q2H PRN PRN Reason: Shortness Of Breath/wheezing Albuterol/Ipratropium (Duoneb 3.0-0.5 Mg/3 Ml) 3 ml NEB Q4H PRN PRN Reason: Shortness Of Breath/wheezing Artificial Tears (Isopto Tears 0.5% Ophth Soln) 0 ml EYEBOTH BID [facility] Last Admin: 01/20/18 09:37 Dose: 1 drop Bisacodyl (Dulcolax) 5 mg PO DAILY PRN PRN Reason: Constipation Clonidine HCl (Catapres) 0.1 mg PO Q8H [facility] Last Admin: 01/20/18 03:03 Dose: 0.1 mg Cyclobenzaprine HCl (Flexeril) 10 mg PO TID PRN PRN Reason: Muscle Spasm Last Admin: 01/20/18 02:56 Dose: 10 mg Dextrose/Water (Dextrose 50% In Water) 50 ml IVPUSH ASDIRECTED PRN PRN Reason: Hypoglycemia Docusate Sodium (Colace) 100 mg PO BID PRN PRN Reason: Constipation Furosemide (Lasix) 40 mg PO DAILY [facility] Hydralazine HCl (Apresoline) 20 mg IVPUSH Q6H PRN PRN Reason: Hypertension Last Admin: 01/20/18 08:57 Dose: 20 mg Hydromorphone HCl (Dilaudid) 0.5 mg IVPUSH Q4H PRN PRN Reason: Pain Last Admin: 01/19/18 21:15 Dose: 0.5 mg Lactated Ringer's (Ringers, Lactated) 1,000 mls @ 125 mls/hr IV ASDIRECTED [facility] Last Admin: 01/20/18 02:56 Dose: 125 mls/hr Insulin Aspart (Novolog) 0 unit SUBCUT QIDACANDBED [facility]; Protocol Last Admin: 01/20/18 07:33 Dose: Not Given Ketorolac Tromethamine (Toradol) 15 mg IVPUSH Q6H [facility] Stop: 01/20/18 17:01 Last Admin: 01/20/18 06:00 Dose: 15 mg Levothyroxine Sodium (Synthroid) 100 mcg PO DAILY@0600 [facility] Last Admin: 01/20/18 06:35 Dose: 100 mcg Magnesium Hydroxide (Milk Of Magnesia) 30 ml PO Q12H PRN PRN Reason: Constipation Memantine (Namenda) 5 mg PO DAILY [facility] Last Admin: 01/20/18 09:37 Dose: 5 mg Metformin HCl (Glucophage) 500 mg PO BIDMEALS [facility] Metoprolol Tartrate (Lopressor) 5 mg IVPUSH Q4H PRN PRN Reason: Hypertension Last Admin: 01/19/18 18:03 Dose: 5 mg Ondansetron HCl (Zofran) 4 mg IVPUSH Q4H PRN PRN Reason: Nausea/Vomiting Last Admin: 01/19/18 21:15 Dose: 4 mg Pantoprazole Sodium (Protonix Iv) 40 mg IVPUSH BID [facility] Last Admin: 01/20/18 09:37 Dose: 40 mg Imatinib Mesylate [ (Gleevec] 600 Mg) 0 each PO DAILY [facility] Last Admin: 01/20/18 09:38 Dose: 600 each Loxapine 50 Mg 0 each PO BEDTIME [facility] Last Admin: 01/19/18 20:03 Dose: 50 each Loxapine 25 Mg 0 each PO DAILY@1800 [facility] Last Admin: 01/19/18 17:40 Dose: 25 each Polyethylene Glycol (Miralax) 17 gm PO DAILY PRN PRN Reason: Constipation Senna/Docusate Sodium (Senna Plus) 1 tab PO BID PRN PRN Reason: Constipation Simvastatin (Zocor) 10 mg PO BEDTIME [facility] Last Admin: 01/19/18 20:01 Dose: 10 mg Sodium Chloride (Saline Flush) 10 ml FLUSH ONETIME PRN PRN Reason: IV FLUSH Last Admin: 01/19/18 15:49 Dose: 10 ml Spironolactone (Aldactone) 25 mg PO DAILY [facility] Last Admin: 01/20/18 09:37 Dose: 25 mg Temazepam (Restoril) 7.5 mg PO BEDTIME [facility] Last Admin: 01/19/18 20:02 Dose: 7.5 mg Tramadol HCl (Ultram) 50 mg PO Q8H [facility] Last Admin: 01/20/18 02:56 Dose: 50 mg Trazodone HCl (Trazodone) 100 mg PO BEDTIME [facility] Last Admin: 01/19/18 20:01 Dose: 100 mg Discontinued Medications Artificial Tears (Isopto Tears 0.5% Ophth Soln) 0 ml EYEBOTH BID [facility] Last Admin: 01/19/18 15:00 Dose: Not Given Artificial Tears (Isopto Tears 0.5% Ophth Soln) 0 ml EYEBOTH BID [facility] Last Admin: 01/19/18 14:20 Dose: 1 drop Clonidine HCl (Catapres) 0.3 mg PO BID [facility] Clonidine HCl (Catapres) 0.1 mg PO ONETIME ONE Stop: 01/19/18 19:38 Last Admin: 01/19/18 19:59 Dose: 0.1 mg Dextrose (Glutose 15) 15 gm PO ASDIRECTED PRN PRN Reason: LOW BS Famotidine (Pepcid) 20 mg PO BID [facility] Last Admin: 01/19/18 13:10 Dose: 20 mg Furosemide (Lasix) 40 mg PO TID [facility] Last Admin: 01/19/18 14:19 Dose: 40 mg Furosemide (Lasix) 40 mg PO TID [facility] Furosemide (Lasix) 40 mg PO DAILY [facility] Furosemide (Lasix) 40 mg IVPUSH NOW ONE Stop: 01/20/18 05:01 Last Admin: 01/20/18 06:00 Dose: 40 mg Hydromorphone HCl (Dilaudid) 1 mg IVPUSH ONETIME ONE Stop: 01/19/18 05:25 Last Admin: 01/19/18 05:48 Dose: 1 mg Hydromorphone HCl (Dilaudid) 0.5 mg IVPUSH ONETIME ONE Stop: 01/19/18 07:33 Last Admin: 01/19/18 07:53 Dose: 0.5 mg Sodium Chloride (Normal Saline) 1,000 mls @ 250 mls/hr IV ASDIRECTED [facility] Last Admin: 01/19/18 05:47 Dose: 250 mls/hr Iopamidol (Isovue-300 (61%)) 100 ml IVPUSH ONETIME ONE Stop: 01/19/18 15:46 Last Admin: 01/19/18 15:49 Dose: 100 ml Losartan Potassium (Cozaar) 100 mg PO DAILY [facility] Last Admin: 01/19/18 14:19 Dose: 100 mg Metoprolol Succinate (Toprol Xl) 25 mg PO DAILY [facility] Last Admin: 01/19/18 14:14 Dose: 25 mg Naloxone HCl (Narcan) 0.5 mg IVPUSH ONETIME ONE Stop: 01/19/18 17:04 Last Admin: 01/19/18 17:28 Dose: 0.5 mg Ondansetron HCl (Zofran) 4 mg IVPUSH ONETIME ONE Stop: 01/19/18 05:25 Last Admin: 01/19/18 05:47 Dose: 4 mg Pantoprazole Sodium (Protonix Iv) 40 mg IVPUSH DAILY [facility] Loxapine 25 Mg 0 each PO DAILY@1400 [facility] Last Admin: 01/19/18 15:00 Dose: Not Given Temazepam (Restoril) 30 mg PO BEDTIME [facility] - Exam Quality Assessment: Supplemental Oxygen, DVT Prophylaxis General: Alert, Oriented, Cooperative, No Acute Distress HEENT: Pupils Equal, Pupils Reactive, EOMI Neck: Trachea Midline, No JVD Lungs: Clear to Auscultation, Normal Respiratory Effort Cardiovascular: Regular Rate, Regular Rhythm GI/Abdominal Exam: Normal Bowel Sounds, Soft, Non-Tender, No Organomegaly, No Distention (Female) Exam: Deferred Back Exam: Normal Inspection Extremities: Normal Inspection, Normal Capillary Refill Skin: Warm Neurological: No New Focal Deficit Psy/Mental Status: Alert, Normal Affect, Normal Mood - Problem List Review Problem List Initiated/Reviewed/Updated: Yes - My Orders Last 24 Hours: My Active Orders 01/19/18 10:56 HYDROmorphone [Dilaudid] 0.5 mg IVPUSH Q4H PRN 01/19/18 11:00 Ketorolac [Toradol] 15 mg IVPUSH Q6H Lactated Ringers [Ringers, Lactated] 1,000 ml IV ASDIRECTED traMADol [Ultram] 50 mg PO Q8H 01/19/18 15:45 Sodium Chloride 0.9% [Saline Flush] 10 ml FLUSH ONETIME PRN 01/19/18 15:56 Admission Status [Patient Status] [ADT] Routine 01/19/18 18:38 Acetaminophen [Tylenol] 650 mg PO Q6H PRN 01/19/18 18:40 Cyclobenzaprine [Flexeril] 10 mg PO TID PRN 01/19/18 18:42 Blood Glucose Check, Bedside [RC] Q6HR Dextrose 50% in Water 50 ml IVPUSH ASDIRECTED PRN 01/19/18 18:56 Transfuse PRBC [Transfuse Red Blood Cells] [COMM] Routine 01/19/18 21:00 Hypromellose [Isopto Tears 0.5% Ophth Soln] 0 ml EYEBOTH BID Temazepam [Restoril] 7.5 mg PO BEDTIME 01/20/18 04:00 cloNIDine [Catapres] 0.1 mg PO Q8H 01/21/18 09:00 Furosemide [Lasix] 40 mg PO DAILY - Plan Plan:: I/P: Acute: Fracture of proximal end of femur, s/p fall ; Procedure expected: IM paul placement for left femoral shaft fracture -06/11 pain -Stable condition -Pain medication PRN -Bedrest, PT/OT after surgery -Continue supportive care Hyponatremia -Na -Monitor Hyperemesis--resolved -Risk factor: chemotherapy -Zofran Q4H -IV lactated ringers Chronic: Anemia -RBC ; Hgb ; Hct ; MCV ; MCHC -Monitor -Blood Type and Screen ordered -Replenish with PRBCs as needed; Hgb stable--11.3 today CKD stage III -eGFR 47 -Creatinine 1.7 -NS IV started in ED--> D/C and start LR IV -Defer to PCP for f/u Diabetes Type II -Blood Glucose Checks QID -Continue at home Metformin 500mg -Sliding scale Insulin -A1C ordered -ADA diet after surgery -Defer to PCP for f/u CHF -BNP -Continue at home Lasix 40mg TID -Monitor Traumatic Brain Injury Leukemia --> Continue at home Gleevec 600mg here HTN--resume home meds, clarify list Plan: Transfered to Med-Surg telemetry unit today She remains stable Continue at home meds as above Consult with Dr. Lanza for L Hip Surgery tomorrow Other orders as indicated above CM/SW for discharge planning Routine AM labs Continue PT/OT DVT Prophylaxis: SCD Code Status: Full code (CPR, Defib, Intubation)- However "No life sustaining treatment on machines" -per Sister Beti, Power of Evaporative Cooler Installer PCP: Dr. Cespedes
[2018-01-20] MEDS ORDERED: Bupivacaine 0.75% 30 ML SDV ONE (11:44)
[2018-01-20] MEDS ORDERED: ceFAZolin 1 GM Vial ONE (11:45)
[2018-01-20] MEDS ORDERED: Midazolam 1 MG/ML 2 ML SDV ONE ×2 (11:45→13:27)
[2018-01-20] MEDS ORDERED: fentaNYL 100 MCG/2 ML SDV ONE (11:45)
[2018-01-20] MEDS ORDERED: Propofol 200 MG/20 ML SDV ONE (11:45)
[2018-01-20] MEDS ORDERED: Ketamine 500 mg/10 ML MDV ONE (11:46)
[2018-01-20] MEDS ORDERED: Bupivacaine 0.25% 30 ML SDV ONE (12:14)
[2018-01-20] MEDS ORDERED: Morphine PF 1 MG/ML Amp ONE (12:27)
--- NOTE | 2018-01-20 12:47 | PCM.CONS ---
H&P History of Present Illness - General Date of Service: 01/19/18 Admit Problem/Dx: Admission Diagnosis/Problem Admission Diagnosis/Problem Fall at home Source of Information: Patient, Family, Provider History Limitations: Reports: Altered Mental Status - History of Present Illness Initial Comments - Free Text/Narative: This is a 62 year old female who was getting ready to take a shower at her home when her sock got caught in the carpet and she fell. She hit her head fairly significantly as well and had immediate left thigh pain as well. The ambulance was summoned and she was taken to the ED where she was worked up for her head injury and thigh pain and found to have a left subtrochanteric femur fracture. The CT of the head showed no acute intracranial abnormality. Patient has significant medical comorbidities and she was admitted to medicine and we were consulted for her femur fracture. She denies previous hip or thigh pain before this fall and does not routinely use ambulatory assistive devices. Left Upper Leg Pain Score (Numeric/FACES): 5 - Related Data Allergies/Adverse Reactions: Allergies Allergy/AdvReac Type Severity Reaction Status Date / Time Influenza Virus Vaccines AdvReac Anxiety Verified 01/19/18 09:58 Home Medications: Home Meds Acetaminophen 650 mg PO Q8H PRN 08/31/15 [History] Aspirin 81 mg PO DAILY 08/31/15 [History] Furosemide [Lasix] 40 mg PO TID 08/31/15 [History] Insulin Aspart [Novolog Flexpen] 3 units SUBCUT ACDINNER 08/31/15 [History] Insulin Aspart [Novolog Flexpen] 7 units SUBCUT BIDMEALS 08/31/15 [History] Levothyroxine Sodium [Synthroid] 100 mcg PO DAILY 08/31/15 [History] Losartan Potassium [Cozaar] 100 mg PO DAILY 08/31/15 [History] Loxapine Succinate [Loxapine] 25 mg PO DAILY 08/31/15 [History] Loxapine Succinate [Loxapine] 50 mg PO BEDTIME 08/31/15 [History] Metoprolol Succinate [Toprol XL] 25 mg PO DAILY 08/31/15 [History] cloNIDine [Catapres] 0.3 mg PO BID 08/31/15 [History] traZODone 100 mg PO BEDTIME 08/31/15 [History] Docosanol [Abreva 10%] 1 applic TOP Q6HR PRN 10/17/15 [History] Dextromethorphan/guaiFENesin [Robitussin DM] 10 ml PO Q4H PRN 10/02/16 [History] Imatinib Mesylate [Gleevec] 600 mg PO DAILY 10/02/16 [History] Ibuprofen 600 mg PO TID PRN 08/30/17 [History] Memantine HCl [Namenda] 5 mg PO DAILY 08/30/17 [History] Nystatin [Nystatin Crm] 1 applic TOP BID PRN 08/30/17 [History] Temazepam 30 mg PO BEDTIME 08/30/17 [History] atorvaSTATin [Lipitor] 10 mg PO DAILY 08/30/17 [History] Insulin Degludec [Tresiba Flextouch U-100] 20 units SUBCUT QPM 01/13/18 [History ] Bacitracin [Bacitracin Oint] 1 applic TOP DAILY 01/19/18 [History] Benzocaine/Menthol [Chloraseptic Sore Throat Leon] 1 lozenge PO Q2HR PRN [History] Carboxymethylcellulose Sodium [Refresh Tears 0.5% Ophth Soln] 1 drop EYEBOTH BID 01/19/18 [History] Dextran 70/Hypromellose [Artificial Tears] 1 drop EYEBOTH BID 01/19/18 [History] Ondansetron [Zofran ODT] 4 mg SL Q4HR PRN 01/19/18 [History] Spironolactone [Aldactone] 25 mg PO DAILY 01/19/18 [History] metFORMIN HCl [Metformin HCl] 500 mg PO BIDMEALS 01/19/18 [History] Past Medical History Other HEENT History: tooth abcess Cardiovascular History: Reports: Heart Failure, High Cholesterol, Hypertension, Other (See Below) Other Cardiovascular History: venous insufficiency, atypical chest pain; angina pectoris inspecified. Gastrointestinal History: Reports: GERD Other Gastrointestinal History: obesity, ascites Musculoskeletal History: Reports: Fracture Other Musculoskeletal History: fx two bones in foot 2.5yrs ago. Neurological History: Reports: Brain Injury, Other (See Below) Other Neuro History: personal history of traumatic brain injury Psychiatric History: Reports: Bipolar, Dementia, Depression Other Psychiatric History: Check up with psychiatrist q3-4 months Endocrine/Metabolic History: Reports: Diabetes, Type II, Hypothyroidism, Obesity /BMI 30+ Oncologic (Cancer) History: Reports: Leukemia Dermatologic History: Reports: Cellulitis - Infectious Disease History Infectious Disease History: Reports: MRSA - Past Surgical History HEENT Surgical History: Reports: Cataract Surgery, Oral Surgery (Tooth extraction) Social & Family History - Family History Family Medical History: Noncontributory - Tobacco Use Smoking Status *Q: Former Smoker Years of Tobacco use: 36 Used Tobacco, but Quit: Yes Month/Year Tobacco Last Used: 18 years ago Second Hand Smoke Exposure: No - Caffeine Use Caffeine Use: Reports: Coffee, Tea - Alcohol Use Days Per Week of Alcohol Use: 0 Number of Drinks Per Day: 0 Total Drinks Per Week: 0 - Recreational Drug Use Recreational Drug Use: No Drug Use in Last 12 Months: No - Living Situation & Occupation Living situation: Reports: Extended Care Facility H&P Review of Systems - Review of Systems: Review Of Systems: ROS reveals no pertinent complaints other than HPI. Exam - Exam Exam: See Below - Vital Signs Vital Signs: Last Vital Signs Temp 36.9 C 01/20/18 12:00 Pulse 94 01/20/18 12:00 Resp 16 01/20/18 12:00 BP 174/58 H 01/20/18 12:03 Pulse Ox 100 01/20/18 12:00 Weight: 78.925 kg - Exam Physical Exam Comments:: Pelvis: stable to ap and lateral compression LLE: shorted and externally rotated, skin is intact she does have a slight amount of ecchymosis laterally, she is able to dorsiflex and plantarflex her ankle and great toe, sensation intact to light touch to the medial, lateral, plantar and first dorsal webspace, less than 2 second capillary refill, she does have some diffuse swelling of the lower extremities. - Patient Data Lab Results Last 24 hrs: Laboratory Results - last 24 hr 01/19/18 01/19/18 01/19/18 Range/Units 05:45 16:46 17:48 WBC (3.98-10.04) K/mm3 RBC (3.98-5.22) M/mm3 Hgb 8.7 L (11.2-15.7) gm/L Hct (34.1-44.9) % MCV (79.4-94.8) fl MCH (25.6-32.2) pg MCHC (32.2-35.5) g/dl RDW Std Deviation (36.4-46.3) fL Plt Count (182-369) K/mm3 MPV (9.4-12.3) fl Neut % (Auto) (34.0-71.1) % Lymph % (Auto) (19.3-51.7) % [place] % (Auto) (4.7-12.5) % Eos % (Auto) (0.7-5.8) Baso % (Auto) (0.1-1.2) % Neut # (Auto) (1.56-6.13) K/mm3 Lymph # (Auto) (1.18-3.74) K/mm3 [place] # (Auto) (0.24-0.36) K/mm3 Eos # (Auto) (0.04-0.36) K/mm3 Baso # (Auto) (0.01-0.08) K/mm3 PT (9.5-12.1) SECONDS INR Sodium (136-145) mEq/L Potassium (3.5-5.1) mEq/L Chloride (98-107) mEq/L Carbon Dioxide (21-32) mEq/L Anion Gap (5-15) BUN (7-18) mg/dL Creatinine (0.55-1.02) mg/dL Est Cr Clr Drug Dosing mL/min Estimated GFR (MDRD) (>60) mL/min BUN/Creatinine Ratio (14-18) Glucose (80-115) mg/dL POC Glucose 132 H (80-115) mg/dL Hemoglobin A1c (4.50-6.20) % Lactic Acid (0.4-2.0) mmol/L Calcium (8.5-10.1) mg/dL Magnesium (1.8-2.4) mg/dl Total Bilirubin (0.2-1.0) mg/dL AST (15-37) U/L ALT (14-59) U/L Alkaline Phosphatase (46-116) U/L C-Reactive Protein (<1.0) mg/dL NT-Pro-B Natriuret Pep (0-125) pg/mL Total Protein (6.4-8.2) g/dl Albumin (3.4-5.0) g/dl Globulin gm/dL Albumin/Globulin Ratio (1-2) MRSA (PCR) Blood Type A POSITIVE Gel Antibody Screen Negative Crossmatch See Detail 01/19/18 01/20/18 01/20/18 Range/Units 20:25 03:01 04:00 WBC (3.98-10.04) K/mm3 RBC (3.98-5.22) M/mm3 Hgb (11.2-15.7) gm/L Hct (34.1-44.9) % MCV (79.4-94.8) fl MCH (25.6-32.2) pg MCHC (32.2-35.5) g/dl RDW Std Deviation (36.4-46.3) fL Plt Count (182-369) K/mm3 MPV (9.4-12.3) fl Neut % (Auto) (34.0-71.1) % Lymph % (Auto) (19.3-51.7) % [place] % (Auto) (4.7-12.5) % Eos % (Auto) (0.7-5.8) Baso % (Auto) (0.1-1.2) % Neut # (Auto) (1.56-6.13) K/mm3 Lymph # (Auto) (1.18-3.74) K/mm3 [place] # (Auto) (0.24-0.36) K/mm3 Eos # (Auto) (0.04-0.36) K/mm3 Baso # (Auto) (0.01-0.08) K/mm3 PT (9.5-12.1) SECONDS INR Sodium (136-145) mEq/L Potassium (3.5-5.1) mEq/L Chloride (98-107) mEq/L Carbon Dioxide (21-32) mEq/L Anion Gap (5-15) BUN (7-18) mg/dL Creatinine (0.55-1.02) mg/dL Est Cr Clr Drug Dosing mL/min Estimated GFR (MDRD) (>60) mL/min BUN/Creatinine Ratio (14-18) Glucose (80-115) mg/dL POC Glucose 155 H 122 H (80-115) mg/dL Hemoglobin A1c (4.50-6.20) % Lactic Acid (0.4-2.0) mmol/L Calcium (8.5-10.1) mg/dL Magnesium (1.8-2.4) mg/dl Total Bilirubin (0.2-1.0) mg/dL AST (15-37) U/L ALT (14-59) U/L Alkaline Phosphatase (46-116) U/L C-Reactive Protein (<1.0) mg/dL NT-Pro-B Natriuret Pep (0-125) pg/mL Total Protein (6.4-8.2) g/dl Albumin (3.4-5.0) g/dl Globulin gm/dL Albumin/Globulin Ratio (1-2) MRSA (PCR) Positive H Blood Type Gel Antibody Screen Crossmatch 01/20/18 01/20/18 01/20/18 Range/Units 05:06 06:04 06:04 WBC 9.37 (3.98-10.04) K/mm3 RBC 3.48 L (3.98-5.22) M/mm3 Hgb 11.3 (11.2-15.7) gm/L Hct 32.7 L (34.1-44.9) % MCV 94.0 (79.4-94.8) fl MCH 32.5 H (25.6-32.2) pg MCHC 34.6 (32.2-35.5) g/dl RDW Std Deviation 55.0 H (36.4-46.3) fL Plt Count 158 L (182-369) K/mm3 MPV 9.2 L (9.4-12.3) fl Neut % (Auto) 62.6 (34.0-71.1) % Lymph % (Auto) 24.5 (19.3-51.7) % [place] % (Auto) 11.0 (4.7-12.5) % Eos % (Auto) 1.4 (0.7-5.8) Baso % (Auto) 0.3 (0.1-1.2) % Neut # (Auto) 5.86 (1.56-6.13) K/mm3 Lymph # (Auto) 2.30 (1.18-3.74) K/mm3 [place] # (Auto) 1.03 H (0.24-0.36) K/mm3 Eos # (Auto) 0.13 (0.04-0.36) K/mm3 Baso # (Auto) 0.03 (0.01-0.08) K/mm3 PT (9.5-12.1) SECONDS INR Sodium 132 L (136-145) mEq/L Potassium 4.2 (3.5-5.1) mEq/L Chloride 98 (98-107) mEq/L Carbon Dioxide 27 (21-32) mEq/L Anion Gap 11.2 (5-15) BUN 18 (7-18) mg/dL Creatinine 1.1 H (0.55-1.02) mg/dL Est Cr Clr Drug Dosing 38.09 mL/min Estimated GFR (MDRD) 50 (>60) mL/min BUN/Creatinine Ratio 16.4 (14-18) Glucose 114 (80-115) mg/dL POC Glucose (80-115) mg/dL Hemoglobin A1c 5.00 (4.50-6.20) % Lactic Acid (0.4-2.0) mmol/L Calcium 8.6 (8.5-10.1) mg/dL Magnesium 2.0 (1.8-2.4) mg/dl Total Bilirubin 1.2 H (0.2-1.0) mg/dL AST 55 H (15-37) U/L ALT 30 (14-59) U/L Alkaline Phosphatase 72 (46-116) U/L C-Reactive Protein 0.7 (<1.0) mg/dL NT-Pro-B Natriuret Pep (0-125) pg/mL Total Protein 6.5 (6.4-8.2) g/dl Albumin 3.3 L (3.4-5.0) g/dl Globulin 3.2 gm/dL Albumin/Globulin Ratio 1.0 (1-2) MRSA (PCR) Blood Type Gel Antibody Screen Crossmatch 01/20/18 01/20/18 01/20/18 Range/Units 06:04 06:04 06:04 WBC (3.98-10.04) K/mm3 RBC (3.98-5.22) M/mm3 Hgb (11.2-15.7) gm/L Hct (34.1-44.9) % MCV (79.4-94.8) fl MCH (25.6-32.2) pg MCHC (32.2-35.5) g/dl RDW Std Deviation (36.4-46.3) fL Plt Count (182-369) K/mm3 MPV (9.4-12.3) fl Neut % (Auto) (34.0-71.1) % Lymph % (Auto) (19.3-51.7) % [place] % (Auto) (4.7-12.5) % Eos % (Auto) (0.7-5.8) Baso % (Auto) (0.1-1.2) % Neut # (Auto) (1.56-6.13) K/mm3 Lymph # (Auto) (1.18-3.74) K/mm3 [place] # (Auto) (0.24-0.36) K/mm3 Eos # (Auto) (0.04-0.36) K/mm3 Baso # (Auto) (0.01-0.08) K/mm3 PT 11.4 (9.5-12.1) SECONDS INR 1.05 Sodium (136-145) mEq/L Potassium (3.5-5.1) mEq/L Chloride (98-107) mEq/L Carbon Dioxide (21-32) mEq/L Anion Gap (5-15) BUN (7-18) mg/dL Creatinine (0.55-1.02) mg/dL Est Cr Clr Drug Dosing mL/min Estimated GFR (MDRD) (>60) mL/min BUN/Creatinine Ratio (14-18) Glucose (80-115) mg/dL POC Glucose (80-115) mg/dL Hemoglobin A1c (4.50-6.20) % Lactic Acid 1.4 (0.4-2.0) mmol/L Calcium (8.5-10.1) mg/dL Magnesium (1.8-2.4) mg/dl Total Bilirubin (0.2-1.0) mg/dL AST (15-37) U/L ALT (14-59) U/L Alkaline Phosphatase (46-116) U/L C-Reactive Protein (<1.0) mg/dL NT-Pro-B Natriuret Pep 1891 H (0-125) pg/mL Total Protein (6.4-8.2) g/dl Albumin (3.4-5.0) g/dl Globulin gm/dL Albumin/Globulin Ratio (1-2) MRSA (PCR) Blood Type Gel Antibody Screen Crossmatch 01/20/18 Range/Units 10:46 WBC (3.98-10.04) K/mm3 RBC (3.98-5.22) M/mm3 Hgb (11.2-15.7) gm/L Hct (34.1-44.9) % MCV (79.4-94.8) fl MCH (25.6-32.2) pg MCHC (32.2-35.5) g/dl RDW Std Deviation (36.4-46.3) fL Plt Count (182-369) K/mm3 MPV (9.4-12.3) fl Neut % (Auto) (34.0-71.1) % Lymph % (Auto) (19.3-51.7) % [place] % (Auto) (4.7-12.5) % Eos % (Auto) (0.7-5.8) Baso % (Auto) (0.1-1.2) % Neut # (Auto) (1.56-6.13) K/mm3 Lymph # (Auto) (1.18-3.74) K/mm3 [place] # (Auto) (0.24-0.36) K/mm3 Eos # (Auto) (0.04-0.36) K/mm3 Baso # (Auto) (0.01-0.08) K/mm3 PT (9.5-12.1) SECONDS INR Sodium (136-145) mEq/L Potassium (3.5-5.1) mEq/L Chloride (98-107) mEq/L Carbon Dioxide (21-32) mEq/L Anion Gap (5-15) BUN (7-18) mg/dL Creatinine (0.55-1.02) mg/dL Est Cr Clr Drug Dosing mL/min Estimated GFR (MDRD) (>60) mL/min BUN/Creatinine Ratio (14-18) Glucose (80-115) mg/dL POC Glucose 128 H (80-115) mg/dL Hemoglobin A1c (4.50-6.20) % Lactic Acid (0.4-2.0) mmol/L Calcium (8.5-10.1) mg/dL Magnesium (1.8-2.4) mg/dl Total Bilirubin (0.2-1.0) mg/dL AST (15-37) U/L ALT (14-59) U/L Alkaline Phosphatase (46-116) U/L C-Reactive Protein (<1.0) mg/dL NT-Pro-B Natriuret Pep (0-125) pg/mL Total Protein (6.4-8.2) g/dl Albumin (3.4-5.0) g/dl Globulin gm/dL Albumin/Globulin Ratio (1-2) MRSA (PCR) Blood Type Gel Antibody Screen Crossmatch Result Diagrams: 01/20/18 06:04 01/20/18 05:06 Consult PN Assessment/Plan Procedures: Procedures ASSAY GLUCOSE BLOOD QUANT (07/04/15) ASSAY OF AMYLASE (12/12/14) ASSAY OF CK (CPK) (07/04/15) ASSAY OF CREATININE (04/03/15) ASSAY OF LACTIC ACID (07/04/15) ASSAY OF LIPASE (12/12/14) ASSAY OF MAGNESIUM (08/31/15) ASSAY OF NATRIURETIC PEPTIDE (08/31/15) ASSAY OF PHOSPHORUS (04/03/15) ASSAY OF TROPONIN QUANT (08/31/15) ASSAY OF VANCOMYCIN (07/04/15) ASSAY THYROID STIM HORMONE (04/03/15) BLOOD CULTURE FOR BACTERIA (07/04/15) C DIFF AMPLIFIED PROBE (11/20/14) C-REACTIVE PROTEIN (01/13/18) C-REACTIVE PROTEIN HS (07/04/15) CARDIOVASCULAR STRESS TEST (09/14/15) CHEST X-RAY 1 VIEW FRONTAL (08/31/15) COMPLETE CBC AUTOMATED (07/04/15) COMPLETE CBC W/AUTO DIFF WBC (01/13/18) COMPREHEN METABOLIC PANEL (01/13/18) CONTROL OF NOSEBLEED (04/20/15) CREATINE MB FRACTION (07/04/15) CT ABD & PELV W/CONTRAST (03/10/17) CT HEAD/BRAIN W/O DYE (08/30/17) CT THORAX W/DYE (04/03/15) CULTURE SCREEN ONLY (03/19/17) DENTAL SURGERY PROCEDURE (08/14/14) ELECTROCARDIOGRAM TRACING (08/31/15) EMERGENCY DEPT VISIT (01/13/18) EMERGENCY DEPT VISIT (10/17/15) EMERGENCY DEPT VISIT (08/31/15) EMERGENCY DEPT VISIT (04/20/15) EMERGENCY DEPT VISIT (04/03/15) EMERGENCY DEPT VISIT (12/12/14) EMERGENCY DEPT VISIT (11/20/14) EVALUATE PT USE OF INHALER (07/30/15) EXTREMITY STUDY (01/13/18) FIBRIN DEGRADATION QUANT (01/13/18) GLUCOSE BLOOD TEST (07/30/15) HT MUSCLE IMAGE SPECT MULT (09/14/15) HYDRATE IV INFUSION ADD-ON (03/10/17) HYDRATION IV INFUSION INIT (03/10/17) IMMUNIZATION ADMIN (08/30/17) INSERT BLADDER CATHETER (04/03/15) MANUAL THERAPY 1/> REGIONS (04/03/15) METABOLIC PANEL TOTAL CA (07/30/15) PROTHROMBIN TIME (08/31/15) PT EVALUATION (04/03/15) RBC SED RATE AUTOMATED (07/04/15) REPAIR TOOTH SOCKET (08/14/14) RMVL DEVITAL TIS 20 CM/< (04/03/15) ROUTINE VENIPUNCTURE (01/13/18) RPR S/N/AX/GEN/TRNK2.6-7.5CM (08/30/17) SCR MAMMO BI INCL CAD (12/21/17) TDAP VACCINE 7 YRS/> IM (08/30/17) THER/PROPH/DIAG INJ IV PUSH (03/22/15) THER/PROPH/DIAG INJ SC/IM (01/13/18) THER/PROPH/DIAG IV INF ADDON (08/31/15) THER/PROPH/DIAG IV INF INIT (08/31/15) THROMBOPLASTIN TIME PARTIAL (08/31/15) TISSUE EXAM BY PATHOLOGIST (07/30/15) TTE W/DOPPLER COMPLETE (04/03/15) TX/PRO/DX INJ NEW DRUG ADDON (08/31/15) TX/PROPH/DG ADDL SEQ IV INF (04/03/15) UPR/LXTR ART STDY 3+ LVLS (08/21/14) URINALYSIS AUTO W/SCOPE (04/03/15) VANOMYCIN DNA AMP PROBE (11/20/14) X-RAY EXAM OF FOREARM (10/17/15) X-RAY EXAM OF LOWER LEG (10/17/15) X-RAY EXAM OF SHOULDER (11/01/14) Problem List Initiated/Reviewed/Updated: Yes My Orders Last 24 Hours: My Active Orders 01/20/18 11:39 Verify Patient Consent Obtain [RC] ASDIRECTED 01/20/18 13:00 Fluoro Up To 1Hr [CR] Routine Plan: A: left subtrochanteric femur fracture P: At this time the patient will be medically optimized for surgery. I discussed with the family and her that surgical intervention is required with this type of fracture so that the patient can ambulate and heal this type of fracture. I discussed the risks, benefits,complications, and alternatives and they are in agreement with intramedullary nailing and any indicated procedures to the left femur. She will be admitted with pain control and bed rest only until cleared for surgery.
[2018-01-20] MEDS ORDERED: Albuterol 0.083% 2.5 MG/3 ML Neb Soln NEB ONE (13:57)
[2018-01-20] MEDS ORDERED: Ondansetron 4 MG/2 ML SDV IVPUSH PRN (13:57)
[2018-01-20] MEDS ORDERED: diphenhydrAMINE 50 MG/ML SDV IVPUSH PRN (13:57)
[2018-01-20] MEDS ORDERED: fentaNYL 100 MCG/2 ML SDV IVPUSH PRN (13:57)
[2018-01-20] MEDS ORDERED: Sodium Chloride 0.9% 100 ML ONE (13:59)
[2018-01-20] MEDS ORDERED: Phenylephrine 1% 10 MG/ML SDV ONE (13:59)
[2018-01-20] MEDS ORDERED: Phenylephrine/Normal Saline 100 MCG/ML 10 ML Syringe ONE (14:00)
[2018-01-20] MEDS ORDERED: Ondansetron 4 MG/2 ML SDV ONE (14:48)
[2018-01-20] MEDS ORDERED: Lactated Ringers 1,000 ML ONE ×2 (14:48)
[2018-01-20] MEDS ORDERED: Naloxone 0.4 MG/ML SDV IVPUSH PRN (15:36)
--- NOTE | 2018-01-20 15:40 | PCM.POSTAN ---
POST ANESTHESIA ASSESSMENT - MENTAL STATUS Mental Status: Alert, Oriented - VITAL SIGNS Pulse Rate: 94 SaO2: 100 Resp Rate: 10 Blood Pressure: 158/45 Temperature: 36.2 C - RESPIRATORY Respiratory Status: Respiratory Rate WNL, Airway Patent, O2 Saturation Stable, Supplemental Oxygen - CARDIOVASCULAR CV Status: Pulse Rate WNL, Blood Pressure Stable - GASTROINTESTINAL GI Status: No Symptoms - PAIN Pain Score: 0 - POST OP HYDRATION Hydration Status: Adequate & Stable
[2018-01-20] MEDS ORDERED: Famotidine 20 MG Tab PO SCH (15:45)
[2018-01-20] MEDS: Ondansetron 4 MG/2 ML SDV IVPUSH PRN ×2 (16:53→23:35)
[2018-01-20] MEDS: LOXAPINE 25 MG PO SCH (18:03)
[2018-01-20] MEDS: Famotidine 20 MG Tab PO SCH (20:40)
[2018-01-20] MEDS: Temazepam 7.5 MG Cap PO SCH (20:46)
[2018-01-20] MEDS: ceFAZolin 2 GM in Premix Bag 1 BAG IV SCH (20:46)
[2018-01-20] MEDS: Docusate Sodium 100 MG Cap PO SCH (20:46)
[2018-01-20] MEDS: Simvastatin 10 MG Tab PO SCH (20:46)
[2018-01-20] MEDS: traZODone 50 MG Tab PO SCH (20:46)
[2018-01-21] MEDS: Acetaminophen/HYDROcodone 325-5 MG Tab PO PRN ×3 (00:05→15:20)
[2018-01-21] MEDS: traMADol 50 MG Tab PO SCH ×3 (04:20→20:37)
[2018-01-21] MEDS: ceFAZolin 2 GM in Premix Bag 1 BAG IV SCH ×2 (05:27→11:04)
[2018-01-21] MEDS: Famotidine 20 MG Tab PO SCH (05:28)
[2018-01-21] MEDS: Cyclobenzaprine 10 MG Tab PO PRN ×2 (05:28→16:57)
[2018-01-21] MEDS: Levothyroxine 100 MCG Tab PO SCH (05:28)
[2018-01-21] MEDS: cloNIDine 0.1 MG Tab PO SCH ×3 (05:32→20:39)
[2018-01-21] MEDS: Insulin Aspart 100 Units/ML 3 ML Pen SUBCUT SCH ×4 (06:07→21:20)
[2018-01-21] MEDS: Memantine 10 MG Tab PO SCH (08:10)
[2018-01-21] MEDS: Spironolactone 25 MG Tab PO SCH (08:10)
[2018-01-21] MEDS: Docusate Sodium 100 MG Cap PO SCH ×2 (08:10→20:34)
[2018-01-21] MEDS: Furosemide 40 MG Tab PO SCH (08:10)
[2018-01-21] MEDS: Enoxaparin 40 MG/0.4 ML Syringe SUBCUT SCH (08:11)
[2018-01-21] MEDS: Hypromellose 0.5% Ophth Soln 15 ML Bottle EYEBOTH SCH ×2 (08:11→20:36)
[2018-01-21] MEDS: IMATINIB MESYLATE 600 MG PO SCH (08:12)
[2018-01-21] MEDS: Metoprolol Tartrate 5 MG/5 ML SDV IVPUSH PRN (09:45)
--- NOTE | 2018-01-21 10:40 | PCM48HPAN ---
Post Anesthesia Note - EVALUATION WITHIN 48HRS OF ANESTHETIC Vital Signs in Normal Range: Yes Patient Participated in Evaluation: Yes Respiratory Function Stable: Yes Airway Patent: Yes Cardiovascular Function Stable: Yes Hydration Status Stable: Yes Pain Control Satisfactory: Yes Nausea and Vomiting Control Satisfactory: Yes Mental Status Recovered: Yes - COMMENTS/OBSERVATIONS Free Text/Narrative:: Francoise is sitting in her chair. She is very comfortable and is looking forward to walking in the hallway soon. No further questions at this time.
[2018-01-21] MEDS ORDERED: Sodium Chloride 0.9% 500 ML IV ONE (11:00)
--- NOTE | 2018-01-21 11:32 | PCM.SURGPN ---
- General Info Date of Service: 01/21/18 POD#: 1 Functional Status: Reports: Pain Controlled, Tolerating Diet, Urinating, Incentive Spirometry, Other (Nursing states pt required the assistance of 3 for mobility today.) - Patient Data Vitals - Most Recent: Last Vital Signs Temp 98.8 F 01/21/18 08:00 Pulse 122 H 01/21/18 09:45 Resp 16 01/21/18 08:00 BP 170/58 H 01/21/18 09:45 Pulse Ox 99 01/21/18 11:00 Weight - Most Recent: 186 lb 3.2 oz I&O - Last 24 Hours: Intake & Output 01/20/18 01/21/18 01/21/18 22:59 06:59 14:59 Intake Total 1617 450 420 Output Total 295 175 Balance 1322 275 420 Lab Results Last 24 Hrs: Laboratory Results - last 24 hr 01/20/18 01/20/18 01/20/18 Range/Units 15:44 17:55 22:00 WBC (3.98-10.04) K/mm3 RBC (3.98-5.22) M/mm3 Hgb (11.2-15.7) gm/L Hct (34.1-44.9) % MCV (79.4-94.8) fl MCH (25.6-32.2) pg MCHC (32.2-35.5) g/dl RDW Std Deviation (36.4-46.3) fL Plt Count (182-369) K/mm3 MPV (9.4-12.3) fl Neut % (Auto) (34.0-71.1) % Lymph % (Auto) (19.3-51.7) % [place] % (Auto) (4.7-12.5) % Eos % (Auto) (0.7-5.8) Baso % (Auto) (0.1-1.2) % Neut # (Auto) (1.56-6.13) K/mm3 Lymph # (Auto) (1.18-3.74) K/mm3 [place] # (Auto) (0.24-0.36) K/mm3 Eos # (Auto) (0.04-0.36) K/mm3 Baso # (Auto) (0.01-0.08) K/mm3 Sodium (136-145) mEq/L Potassium (3.5-5.1) mEq/L Chloride (98-107) mEq/L Carbon Dioxide (21-32) mEq/L Anion Gap (5-15) BUN (7-18) mg/dL Creatinine (0.55-1.02) mg/dL Est Cr Clr Drug Dosing mL/min Estimated GFR (MDRD) (>60) mL/min BUN/Creatinine Ratio (14-18) Glucose (80-115) mg/dL POC Glucose 123 H 157 H 197 H (80-115) mg/dL Lactic Acid (0.4-2.0) mmol/L Calcium (8.5-10.1) mg/dL Magnesium (1.8-2.4) mg/dl Total Bilirubin (0.2-1.0) mg/dL AST (15-37) U/L ALT (14-59) U/L Alkaline Phosphatase (46-116) U/L C-Reactive Protein (<1.0) mg/dL NT-Pro-B Natriuret Pep (0-125) pg/mL Total Protein (6.4-8.2) g/dl Albumin (3.4-5.0) g/dl Globulin gm/dL Albumin/Globulin Ratio (1-2) 01/21/18 01/21/18 01/21/18 Range/Units 05:59 06:00 06:00 WBC 12.94 H (3.98-10.04) K/mm3 RBC 2.59 L (3.98-5.22) M/mm3 Hgb 8.5 L (11.2-15.7) gm/L Hct 25.2 L (34.1-44.9) % MCV 97.3 H (79.4-94.8) fl MCH 32.8 H (25.6-32.2) pg MCHC 33.7 (32.2-35.5) g/dl RDW Std Deviation 55.1 H (36.4-46.3) fL Plt Count 181 L (182-369) K/mm3 MPV 9.0 L (9.4-12.3) fl Neut % (Auto) 66.4 (34.0-71.1) % Lymph % (Auto) 21.6 (19.3-51.7) % [place] % (Auto) 10.7 (4.7-12.5) % Eos % (Auto) 0.9 (0.7-5.8) Baso % (Auto) 0.2 (0.1-1.2) % Neut # (Auto) 8.59 H (1.56-6.13) K/mm3 Lymph # (Auto) 2.79 (1.18-3.74) K/mm3 [place] # (Auto) 1.39 H (0.24-0.36) K/mm3 Eos # (Auto) 0.11 (0.04-0.36) K/mm3 Baso # (Auto) 0.03 (0.01-0.08) K/mm3 Sodium 133 L (136-145) mEq/L Potassium 4.3 (3.5-5.1) mEq/L Chloride 100 (98-107) mEq/L Carbon Dioxide 27 (21-32) mEq/L Anion Gap 10.3 (5-15) BUN 19 H (7-18) mg/dL Creatinine 1.3 H (0.55-1.02) mg/dL Est Cr Clr Drug Dosing 32.23 mL/min Estimated GFR (MDRD) 42 (>60) mL/min BUN/Creatinine Ratio 14.6 (14-18) Glucose 128 H (80-115) mg/dL POC Glucose 147 H (80-115) mg/dL Lactic Acid (0.4-2.0) mmol/L Calcium 8.1 L (8.5-10.1) mg/dL Magnesium 2.0 (1.8-2.4) mg/dl Total Bilirubin 0.6 (0.2-1.0) mg/dL AST 60 H (15-37) U/L ALT 31 (14-59) U/L Alkaline Phosphatase 68 (46-116) U/L C-Reactive Protein 2.2 H* (<1.0) mg/dL NT-Pro-B Natriuret Pep (0-125) pg/mL Total Protein 6.0 L (6.4-8.2) g/dl Albumin 3.1 L (3.4-5.0) g/dl Globulin 2.9 gm/dL Albumin/Globulin Ratio 1.1 (1-2) 01/21/18 01/21/18 01/21/18 Range/Units 06:00 06:00 10:06 WBC (3.98-10.04) K/mm3 RBC (3.98-5.22) M/mm3 Hgb 8.0 L (11.2-15.7) gm/L Hct 23.7 L (34.1-44.9) % MCV (79.4-94.8) fl MCH (25.6-32.2) pg MCHC (32.2-35.5) g/dl RDW Std Deviation (36.4-46.3) fL Plt Count (182-369) K/mm3 MPV (9.4-12.3) fl Neut % (Auto) (34.0-71.1) % Lymph % (Auto) (19.3-51.7) % [place] % (Auto) (4.7-12.5) % Eos % (Auto) (0.7-5.8) Baso % (Auto) (0.1-1.2) % Neut # (Auto) (1.56-6.13) K/mm3 Lymph # (Auto) (1.18-3.74) K/mm3 [place] # (Auto) (0.24-0.36) K/mm3 Eos # (Auto) (0.04-0.36) K/mm3 Baso # (Auto) (0.01-0.08) K/mm3 Sodium (136-145) mEq/L Potassium (3.5-5.1) mEq/L Chloride (98-107) mEq/L Carbon Dioxide (21-32) mEq/L Anion Gap (5-15) BUN (7-18) mg/dL Creatinine (0.55-1.02) mg/dL Est Cr Clr Drug Dosing mL/min Estimated GFR (MDRD) (>60) mL/min BUN/Creatinine Ratio (14-18) Glucose (80-115) mg/dL POC Glucose (80-115) mg/dL Lactic Acid 2.1 H (0.4-2.0) mmol/L Calcium (8.5-10.1) mg/dL Magnesium (1.8-2.4) mg/dl Total Bilirubin (0.2-1.0) mg/dL AST (15-37) U/L ALT (14-59) U/L Alkaline Phosphatase (46-116) U/L C-Reactive Protein (<1.0) mg/dL NT-Pro-B Natriuret Pep 1366 H (0-125) pg/mL Total Protein (6.4-8.2) g/dl Albumin (3.4-5.0) g/dl Globulin gm/dL Albumin/Globulin Ratio (1-2) 01/21/18 Range/Units 11:13 WBC (3.98-10.04) K/mm3 RBC (3.98-5.22) M/mm3 Hgb (11.2-15.7) gm/L Hct (34.1-44.9) % MCV (79.4-94.8) fl MCH (25.6-32.2) pg MCHC (32.2-35.5) g/dl RDW Std Deviation (36.4-46.3) fL Plt Count (182-369) K/mm3 MPV (9.4-12.3) fl Neut % (Auto) (34.0-71.1) % Lymph % (Auto) (19.3-51.7) % [place] % (Auto) (4.7-12.5) % Eos % (Auto) (0.7-5.8) Baso % (Auto) (0.1-1.2) % Neut # (Auto) (1.56-6.13) K/mm3 Lymph # (Auto) (1.18-3.74) K/mm3 [place] # (Auto) (0.24-0.36) K/mm3 Eos # (Auto) (0.04-0.36) K/mm3 Baso # (Auto) (0.01-0.08) K/mm3 Sodium (136-145) mEq/L Potassium (3.5-5.1) mEq/L Chloride (98-107) mEq/L Carbon Dioxide (21-32) mEq/L Anion Gap (5-15) BUN (7-18) mg/dL Creatinine (0.55-1.02) mg/dL Est Cr Clr Drug Dosing mL/min Estimated GFR (MDRD) (>60) mL/min BUN/Creatinine Ratio (14-18) Glucose (80-115) mg/dL POC Glucose 193 H (80-115) mg/dL Lactic Acid (0.4-2.0) mmol/L Calcium (8.5-10.1) mg/dL Magnesium (1.8-2.4) mg/dl Total Bilirubin (0.2-1.0) mg/dL AST (15-37) U/L ALT (14-59) U/L Alkaline Phosphatase (46-116) U/L C-Reactive Protein (<1.0) mg/dL NT-Pro-B Natriuret Pep (0-125) pg/mL Total Protein (6.4-8.2) g/dl Albumin (3.4-5.0) g/dl Globulin gm/dL Albumin/Globulin Ratio (1-2) Med Orders - Current: Current Medications Acetaminophen (Tylenol) 650 mg PO Q6H PRN PRN Reason: Pain/Fever Last Admin: 01/20/18 08:27 Dose: 650 mg Hydrocodone Bitart/Acetaminophen (Rocky Comfort 325-5 Mg) 1 - 2 tab PO Q4H PRN PRN Reason: Pain Last Admin: 01/21/18 07:33 Dose: 2 tab Albuterol (Proventil Neb Soln) 2.5 mg NEB Q2H PRN PRN Reason: Shortness Of Breath/wheezing Albuterol/Ipratropium (Duoneb 3.0-0.5 Mg/3 Ml) 3 ml NEB Q4H PRN PRN Reason: Shortness Of Breath/wheezing Artificial Tears (Isopto Tears 0.5% Ophth Soln) 0 ml EYEBOTH BID [facility] Last Admin: 01/21/18 08:11 Dose: 1 drop Bisacodyl (Dulcolax) 5 mg PO DAILY PRN PRN Reason: Constipation Clonidine HCl (Catapres) 0.1 mg PO Q8H [facility] Last Admin: 01/21/18 05:32 Dose: Not Given Cyclobenzaprine HCl (Flexeril) 10 mg PO TID PRN PRN Reason: Muscle Spasm Last Admin: 01/21/18 05:28 Dose: 10 mg Dextrose/Water (Dextrose 50% In Water) 50 ml IVPUSH ASDIRECTED PRN PRN Reason: Hypoglycemia Diphenhydramine HCl (Benadryl) 25 mg IVPUSH Q6H PRN PRN Reason: Pruritis Last Admin: 01/20/18 23:35 Dose: 25 mg Docusate Sodium (Colace) 100 mg PO BID PRN PRN Reason: Constipation Docusate Sodium (Colace) 100 mg PO BID [facility] Last Admin: 01/21/18 08:10 Dose: 100 mg Enoxaparin Sodium (Lovenox) 40 mg SUBCUT DAILY [facility] Last Admin: 01/21/18 08:11 Dose: 40 mg Famotidine (Pepcid) 20 mg PO BID@0600,1800 [facility] Last Admin: 01/21/18 05:28 Dose: 20 mg Furosemide (Lasix) 40 mg PO DAILY [facility] Last Admin: 01/21/18 08:10 Dose: 40 mg Furosemide (Lasix) 40 mg IVPUSH ONETIME ONE Stop: 01/21/18 12:01 Hydralazine HCl (Apresoline) 20 mg IVPUSH Q6H PRN PRN Reason: Hypertension Last Admin: 01/20/18 08:57 Dose: 20 mg Hydromorphone HCl (Dilaudid) 0.5 mg IVPUSH Q4H PRN PRN Reason: Pain Last Admin: 01/19/18 21:15 Dose: 0.5 mg Cefazolin Sodium/Dextrose 2 gm (/ Premix) 50 mls @ 100 mls/hr IV Q8H [facility] Stop: 01/21/18 12:29 Last Admin: 01/21/18 11:04 Dose: 100 mls/hr Sodium Chloride (Normal Saline) 500 mls @ 75 mls/hr IV ONETIME ONE Stop: 01/21/18 17:39 Insulin Aspart (Novolog) 0 unit SUBCUT QIDACANDBED [facility]; Protocol Last Admin: 01/21/18 11:14 Dose: 1 unit Levothyroxine Sodium (Synthroid) 100 mcg PO DAILY@0600 [facility] Last Admin: 01/21/18 05:28 Dose: 100 mcg Magnesium Hydroxide (Milk Of Magnesia) 30 ml PO Q12H PRN PRN Reason: Constipation Memantine (Namenda) 5 mg PO DAILY [facility] Last Admin: 01/21/18 08:10 Dose: 5 mg [facility] Metoprolol Tartrate (Lopressor) 5 mg IVPUSH Q4H PRN PRN Reason: Hypertension Last Admin: 01/21/18 09:45 Dose: 5 mg Naloxone HCl (Narcan) 0.1 mg IVPUSH Q5M PRN PRN Reason: Oversedation Ondansetron HCl (Zofran) 4 mg IVPUSH Q4H PRN PRN Reason: Nausea/Vomiting Last Admin: 01/20/18 23:35 Dose: 4 mg Imatinib Mesylate [ (Gleevec] 600 Mg) 0 each PO DAILY [facility] Last Admin: 01/21/18 08:12 Dose: 600 each Loxapine 50 Mg 0 each PO BEDTIME [facility] Last Admin: 01/20/18 20:46 Dose: 50 each Loxapine 25 Mg 0 each PO DAILY@1800 [facility] Last Admin: 01/20/18 18:03 Dose: 1 each Polyethylene Glycol (Miralax) 17 gm PO DAILY PRN PRN Reason: Constipation Senna/Docusate Sodium (Senna Plus) 1 tab PO BID PRN PRN Reason: Constipation Simvastatin (Zocor) 10 mg PO BEDTIME [facility] Last Admin: 01/20/18 20:46 Dose: 10 mg Sodium Chloride (Saline Flush) 10 ml FLUSH ONETIME PRN PRN Reason: IV FLUSH Last Admin: 01/19/18 15:49 Dose: 10 ml Spironolactone (Aldactone) 25 mg PO DAILY [facility] Last Admin: 01/21/18 08:10 Dose: 25 mg Temazepam (Restoril) 7.5 mg PO BEDTIME [facility] Last Admin: 01/20/18 20:46 Dose: 7.5 mg Tramadol HCl (Ultram) 50 mg PO Q8H [facility] Last Admin: 01/21/18 11:02 Dose: 50 mg Trazodone HCl (Trazodone) 100 mg PO BEDTIME [facility] Last Admin: 01/20/18 20:46 Dose: 100 mg Discontinued Medications Albuterol (Proventil Neb Soln) 2.5 mg NEB ONETIME ONE Stop: 01/20/18 13:58 Last Admin: 01/20/18 19:13 Dose: Not Given Artificial Tears (Isopto Tears 0.5% Ophth Soln) 0 ml EYEBOTH BID [facility] Last Admin: 01/19/18 15:00 Dose: Not Given Artificial Tears (Isopto Tears 0.5% Ophth Soln) 0 ml EYEBOTH BID [facility] Last Admin: 01/19/18 14:20 Dose: 1 drop Bupivacaine HCl (Sensorcaine-Mpf 0.75%) Confirm Administered Dose 30 ml .ROUTE .STK-MED ONE Stop: 01/20/18 11:45 Bupivacaine HCl (Marcaine 0.25%) Confirm Administered Dose 30 ml .ROUTE .STK- MED ONE Stop: 01/20/18 12:15 Last Admin: 01/20/18 13:48 Dose: 30 ml Cefazolin Sodium (Ancef) Confirm Administered Dose 2 gm .ROUTE .STK-MED ONE Stop: 01/20/18 11:46 Clonidine HCl (Catapres) 0.3 mg PO BID [facility] Clonidine HCl (Catapres) 0.1 mg PO ONETIME ONE Stop: 01/19/18 19:38 Last Admin: 01/19/18 19:59 Dose: 0.1 mg Dextrose (Glutose 15) 15 gm PO ASDIRECTED PRN PRN Reason: LOW BS Famotidine (Pepcid) 20 mg PO BID [facility] Last Admin: 01/19/18 13:10 Dose: 20 mg Famotidine (Pepcid) 20 mg PO Q12H [facility] Last Admin: 01/20/18 17:13 Dose: Not Given Fentanyl (Sublimaze) Confirm Administered Dose 100 mcg .ROUTE .STK-MED ONE Stop: 01/20/18 11:46 Fentanyl (Sublimaze) 50 mcg IVPUSH Q5M PRN PRN Reason: Pain Furosemide (Lasix) 40 mg PO TID [facility] Last Admin: 01/19/18 14:19 Dose: 40 mg Furosemide (Lasix) 40 mg PO TID [facility] Furosemide (Lasix) 40 mg PO DAILY [facility] Furosemide (Lasix) 40 mg IVPUSH NOW ONE Stop: 01/20/18 05:01 Last Admin: 01/20/18 06:00 Dose: 40 mg Hydromorphone HCl (Dilaudid) 1 mg IVPUSH ONETIME ONE Stop: 01/19/18 05:25 Last Admin: 01/19/18 05:48 Dose: 1 mg Hydromorphone HCl (Dilaudid) 0.5 mg IVPUSH ONETIME ONE Stop: 01/19/18 07:33 Last Admin: 01/19/18 07:53 Dose: 0.5 mg Sodium Chloride (Normal Saline) 1,000 mls @ 250 mls/hr IV ASDIRECTED [facility] Last Admin: 01/19/18 05:47 Dose: 250 mls/hr Lactated Ringer's (Ringers, Lactated) 1,000 mls @ 125 mls/hr IV ASDIRECTED [facility] Last Infusion: 01/20/18 12:30 Dose: 0 mls/hr Vancomycin HCl 1 gm/ Sodium (Chloride) 250 mls @ 250 mls/hr IV ONETIME ONE Stop: 01/20/18 14:14 Last Admin: 01/20/18 19:13 Dose: Not Given Sodium Chloride (Normal Saline) Confirm Administered Dose 100 mls @ as directed .ROUTE .STK-MED ONE Stop: 01/20/18 14:00 Lactated Ringer's (Ringers, Lactated) Confirm Administered Dose 1,000 mls @ as directed .ROUTE .STK-MED ONE Stop: 01/20/18 14:49 Lactated Ringer's (Ringers, Lactated) Confirm Administered Dose 1,000 mls @ as directed .ROUTE .[facility] ONE Stop: 01/20/18 14:49 Iopamidol (Isovue-300 (61%)) 100 ml IVPUSH ONETIME ONE Stop: 01/19/18 15:46 Last Admin: 01/19/18 15:49 Dose: 100 ml Ketamine HCl (Ketalar) Confirm Administered Dose 500 mg .ROUTE .STK-MED ONE Stop: 01/20/18 11:47 Ketorolac Tromethamine (Toradol) 15 mg IVPUSH Q6H [facility] Stop: 01/20/18 17:01 Last Admin: 01/20/18 18:02 Dose: 15 mg Lidocaine HCl (Xylocaine-Mpf 1%) Confirm Administered Dose 5 ml .ROUTE .STK-MED ONE Stop: 01/20/18 12:33 Losartan Potassium (Cozaar) 100 mg PO DAILY [facility] Last Admin: 01/19/18 14:19 Dose: 100 mg Metoprolol Succinate (Toprol Xl) 25 mg PO DAILY [facility] Last Admin: 01/19/18 14:14 Dose: 25 mg Midazolam HCl (Versed 1 Mg/Ml) Confirm Administered Dose 2 mg .ROUTE .STK-MED ONE Stop: 01/20/18 11:46 Midazolam HCl (Versed 1 Mg/Ml) Confirm Administered Dose 2 mg .ROUTE .STK-MED ONE Stop: 01/20/18 13:28 Morphine Sulfate (Duramorph Pf) Confirm Administered Dose 1 mg .ROUTE .STK-MED ONE Stop: 01/20/18 12:28 Naloxone HCl (Narcan) 0.5 mg IVPUSH ONETIME ONE Stop: 01/19/18 17:04 Last Admin: 01/19/18 17:28 Dose: 0.5 mg Ondansetron HCl (Zofran) 4 mg IVPUSH ONETIME ONE Stop: 01/19/18 05:25 Last Admin: 01/19/18 05:47 Dose: 4 mg Ondansetron HCl (Zofran) 4 mg IVPUSH ONETIME PRN PRN Reason: Nausea/Vomiting Ondansetron HCl (Zofran) Confirm Administered Dose 4 mg .ROUTE .STK-MED ONE Stop: 01/20/18 14:49 Pantoprazole Sodium (Protonix Iv) 40 mg IVPUSH DAILY [facility] Pantoprazole Sodium (Protonix Iv) 40 mg IVPUSH BID [facility] Last Admin: 01/20/18 09:37 Dose: 40 mg Loxapine 25 Mg 0 each PO DAILY@1400 [facility] Last Admin: 01/19/18 15:00 Dose: Not Given Phenylephrine HCl (Rodney-Synephrine) Confirm Administered Dose 10 mg .ROUTE .STK- MED ONE Stop: 01/20/18 14:00 Phenylephrine HCl (Phenylephrine In Ns 100 Mcg/Ml) Confirm Administered Dose 1 mg .ROUTE .STK-MED ONE Stop: 01/20/18 14:01 Propofol (Diprivan 20 Ml) Confirm Administered Dose 600 mg .ROUTE .STK-MED ONE Stop: 01/20/18 11:46 Temazepam (Restoril) 30 mg PO BEDTIME [facility] - Exam Wound/Incisions: Dressing Dry and Intact General: Alert, Cooperative, No Acute Distress Lungs: Normal Respiratory Effort Extremities: Other (Left thigh soft. Shashi's negative for LLE. Active left knee and ankle motion noted.) - Problem List Review Problem List Initiated/Reviewed/Updated: Yes - My Orders Last 24 Hours: Active Orders 24 hr Category Date Time Status Patient Status [ADT] Routine ADT 01/20/18 17:45 Active Ambulate [RC] PER UNIT ROUTINE Care 01/20/18 15:36 Active Bladder Scan [RC] .PRN Care 01/21/18 10:44 Active Communication Order [RC] ASDIRECTED Care 01/20/18 13:57 Active Cooling Warming Measures [RC] ASDIRECTED Care 01/20/18 13:56 Active May Shower [RC] ASDIRECTED Care 01/20/18 15:36 Active Notify Provider [RC] ASDIRECTED Care 01/20/18 13:57 Active RT Aerosol Therapy [RC] ASDIRECTED Care 01/20/18 13:57 Active RT Incentive Spirometry [RC] Q1HWA Care 01/20/18 15:35 Active Up to Chair [RC] ASDIRECTED Care 01/20/18 15:36 Active Regular Diet [DIET] Diet 01/20/18 Dinner Active Femur Min 2V Lt [CR] Routine Exams 01/20/18 15:35 Taken Fluoro Up To 1Hr [CR] Routine Exams 01/20/18 13:00 Taken C-REACTIVE PROTEIN [CHEM] AM Lab 01/22/18 05:11 Ordered C-REACTIVE PROTEIN [CHEM] AM Lab 01/23/18 05:11 Ordered C-REACTIVE PROTEIN [CHEM] AM Lab 01/24/18 05:11 Ordered CBC WITH AUTO DIFF [HEME] AM Lab 01/22/18 05:11 Ordered CBC WITH AUTO DIFF [HEME] AM Lab 01/23/18 05:11 Ordered CBC WITH AUTO DIFF [HEME] AM Lab 01/24/18 05:11 Ordered COMPREHENSIVE METABOLIC PN,CMP [CHEM] AM Lab 01/22/18 05:11 Ordered COMPREHENSIVE METABOLIC PN,CMP [CHEM] AM Lab 01/23/18 05:11 Ordered COMPREHENSIVE METABOLIC PN,CMP [CHEM] AM Lab 01/24/18 05:11 Ordered LACTIC ACID [CHEM] AM Lab 01/22/18 05:11 Ordered LACTIC ACID [CHEM] AM Lab 01/23/18 05:11 Ordered LACTIC ACID [CHEM] AM Lab 01/24/18 05:11 Ordered MAGNESIUM [CHEM] AM Lab 01/22/18 05:11 Ordered MAGNESIUM [CHEM] AM Lab 01/23/18 05:11 Ordered MAGNESIUM [CHEM] AM Lab 01/24/18 05:11 Ordered PRO B-TYPE NATRIUR PEPT,BNPPRO [CHEM] DAILY Lab 01/22/18 08:00 Ordered PRO B-TYPE NATRIUR PEPT,BNPPRO [CHEM] DAILY Lab 01/23/18 08:00 Ordered PRO B-TYPE NATRIUR PEPT,BNPPRO [CHEM] DAILY Lab 01/24/18 08:00 Ordered Acetaminophen/HYDROcodone [Rocky Comfort 325-5 MG] Med 01/20/18 15:36 Active 1 - 2 tab PO Q4H PRN Docusate Sodium [Colace] Med 01/20/18 21:00 Active 100 mg PO BID Enoxaparin [Lovenox] Med 01/21/18 09:00 Active 40 mg SUBCUT DAILY Famotidine [Pepcid] Med 01/20/18 20:30 Active 20 mg PO BID@0600,1800 Furosemide [Lasix] Med 01/21/18 12:00 Once 40 mg IVPUSH ONETIME ONE Furosemide [Lasix] Med 01/21/18 09:00 Active 40 mg PO DAILY Naloxone [Narcan] Med 01/20/18 15:36 Active 0.1 mg IVPUSH Q5M PRN Sodium Chloride 0.9% [Normal Saline] 500 ml Med 01/21/18 11:00 Active IV ONETIME ceFAZolin [Ancef] 2 gm Med 01/20/18 20:00 Active Premix Bag 1 bag IV Q8H diphenhydrAMINE [Benadryl] Med 01/20/18 13:57 Active 25 mg IVPUSH Q6H PRN Antiembolic Hose [OM.PC] Per Unit Routine Oth 01/20/18 15:41 Ordered Ice Therapy [OM.PC] Per Unit Routine Oth 01/20/18 15:36 Ordered Pulse Oximetry Continuous Monitoring [OM.PC] Routine Oth 01/20/18 13:57 Active Schedule Procedure [COMM] Stat Oth 01/20/18 13:00 Ordered Transfuse PRBC [Transfuse Red Blood Cells] [COMM] Stat Oth 01/21/18 10:42 Ordered Weight bearing status [OM.PC] Routine Oth 01/20/18 15:36 Ordered Medication Orders Acetaminophen (Tylenol) 650 mg PO Q6H PRN PRN Reason: Pain/Fever Last Admin: 01/20/18 08:27 Dose: 650 mg Admin: 01/19/18 19:01 Dose: 650 mg Hydrocodone Bitart/Acetaminophen (Rocky [place]fort 325-5 Mg) 1 - 2 tab PO Q4H PRN PRN Reason: Pain Last Admin: 01/21/18 07:33 Dose: 2 tab Admin: 01/21/18 00:05 Dose: 2 tab Albuterol (Proventil Neb Soln) 2.5 mg NEB Q2H PRN PRN Reason: Shortness Of Breath/wheezing Albuterol/Ipratropium (Duoneb 3.0-0.5 Mg/3 Ml) 3 ml NEB Q4H PRN PRN Reason: Shortness Of Breath/wheezing Artificial Tears (Isopto Tears 0.5% Ophth Soln) 0 ml EYEBOTH BID [facility] Last Admin: 01/21/18 08:11 Dose: 1 drop Admin: 01/20/18 20:47 Dose: 1 drop Admin: 01/20/18 09:37 Dose: 1 drop Admin: 01/19/18 20:00 Dose: 1 drop Bisacodyl (Dulcolax) 5 mg PO DAILY PRN PRN Reason: Constipation Clonidine HCl (Catapres) 0.1 mg PO Q8H [facility] Last Admin: 01/21/18 05:32 Dose: Not Given Admin: 01/20/18 20:15 Dose: Admin: 01/20/18 12:03 Dose: Admin: 01/20/18 03:03 Dose: 0.1 mg Cyclobenzaprine HCl (Flexeril) 10 mg PO TID PRN PRN Reason: Muscle Spasm Last Admin: 01/21/18 05:28 Dose: 10 mg Admin: 01/20/18 02:56 Dose: 10 mg Admin: 01/19/18 19:02 Dose: 10 mg Dextrose/Water (Dextrose 50% In Water) 50 ml IVPUSH ASDIRECTED PRN PRN Reason: Hypoglycemia Diphenhydramine HCl (Benadryl) 25 mg IVPUSH Q6H PRN PRN Reason: Pruritis Last Admin: 01/20/18 23:35 Dose: 25 mg Docusate Sodium (Colace) 100 mg PO BID PRN PRN Reason: Constipation Docusate Sodium (Colace) 100 mg PO BID [facility] Last Admin: 01/21/18 08:10 Dose: 100 mg Admin: 01/20/18 20:46 Dose: 100 mg Enoxaparin Sodium (Lovenox) 40 mg SUBCUT DAILY [facility] Last Admin: 01/21/18 08:11 Dose: 40 mg Famotidine (Pepcid) 20 mg PO BID@0600,1800 [facility] Last Admin: 01/21/18 05:28 Dose: 20 mg Admin: 01/20/18 20:40 Dose: Not Given Furosemide (Lasix) 40 mg PO DAILY [facility] Last Admin: 01/21/18 08:10 Dose: 40 mg Furosemide (Lasix) 40 mg IVPUSH ONETIME ONE Stop: 01/21/18 12:01 Hydralazine HCl (Apresoline) 20 mg IVPUSH Q6H PRN PRN Reason: Hypertension Last Admin: 01/20/18 08:57 Dose: 20 mg Admin: 01/19/18 17:28 Dose: 20 mg Hydromorphone HCl (Dilaudid) 0.5 mg IVPUSH Q4H PRN PRN Reason: Pain Last Admin: 01/19/18 21:15 Dose: 0.5 mg Cefazolin Sodium/Dextrose 2 gm (/ Premix) 50 mls @ 100 mls/hr IV Q8H [facility] Stop: 01/21/18 12:29 Last Admin: 01/21/18 11:04 Dose: 100 mls/hr Infusion: 01/21/18 05:57 Dose: 100 mls/hr Admin: 01/21/18 05:27 Dose: 100 mls/hr Infusion: 01/20/18 21:16 Dose: 100 mls/hr Admin: 01/20/18 20:46 Dose: 100 mls/hr Sodium Chloride (Normal Saline) 500 mls @ 75 mls/hr IV ONETIME ONE Stop: 01/21/18 17:39 Insulin Aspart (Novolog) 0 unit SUBCUT QIDACANDBED [facility]; Protocol Last Admin: 01/21/18 11:14 Dose: 1 unit Admin: 01/21/18 06:07 Dose: Not Given Admin: 01/20/18 22:07 Dose: 1 unit Admin: 01/20/18 17:58 Dose: Not Given Admin: 01/20/18 12:02 Dose: Not Given Admin: 01/20/18 07:33 Dose: Admin: 01/19/18 21:10 Dose: Admin: 01/19/18 17:54 Dose: Not Given Levothyroxine Sodium (Synthroid) 100 mcg PO DAILY@0600 [facility] Last Admin: 01/21/18 05:28 Dose: 100 mcg Admin: 01/20/18 06:35 Dose: 100 mcg Admin: 01/19/18 14:19 Dose: 100 mcg Magnesium Hydroxide (Milk Of Magnesia) 30 ml PO Q12H PRN PRN Reason: Constipation Memantine (Namenda) 5 mg PO DAILY [facility] Last Admin: 01/21/18 08:10 Dose: 5 mg Admin: 01/20/18 09:37 Dose: 5 mg Admin: 01/19/18 14:19 Dose: 5 mg Metformin HCl (Glucophage) 500 mg PO BIDMEALS [facility] Metoprolol Tartrate (Lopressor) 5 mg IVPUSH Q4H PRN PRN Reason: Hypertension Last Admin: 01/21/18 09:45 Dose: 5 mg Admin: 01/19/18 18:03 Dose: 5 mg Naloxone HCl (Narcan) 0.1 mg IVPUSH Q5M PRN PRN Reason: Oversedation Ondansetron HCl (Zofran) 4 mg IVPUSH Q4H PRN PRN Reason: Nausea/Vomiting Last Admin: 01/20/18 23:35 Dose: 4 mg Admin: 01/20/18 16:53 Dose: 4 mg Admin: 01/19/18 21:15 Dose: 4 mg Admin: 01/19/18 13:10 Dose: 4 mg Imatinib Mesylate [ (Gleevec] 600 Mg) 0 each PO DAILY [facility] Last Admin: 01/21/18 08:12 Dose: 600 each Admin: 01/20/18 09:38 Dose: 600 each Loxapine 50 Mg 0 each PO BEDTIME [facility] Last Admin: 01/20/18 20:46 Dose: 50 each Admin: 01/19/18 20:03 Dose: 50 each Loxapine 25 Mg 0 each PO DAILY@1800 [facility] Last Admin: 01/20/18 18:03 Dose: 1 each Admin: 01/19/18 17:40 Dose: 25 each Polyethylene Glycol (Miralax) 17 gm PO DAILY PRN PRN Reason: Constipation Senna/Docusate Sodium (Senna Plus) 1 tab PO BID PRN PRN Reason: Constipation Simvastatin (Zocor) 10 mg PO BEDTIME [facility] Last Admin: 01/20/18 20:46 Dose: 10 mg Admin: 01/19/18 20:01 Dose: 10 mg Sodium Chloride (Saline Flush) 10 ml FLUSH ONETIME PRN PRN Reason: IV FLUSH Last Admin: 01/19/18 15:49 Dose: 10 ml Spironolactone (Aldactone) 25 mg PO DAILY [facility] Last Admin: 01/21/18 08:10 Dose: 25 mg Admin: 01/20/18 09:37 Dose: 25 mg Temazepam (Restoril) 7.5 mg PO BEDTIME [facility] Last Admin: 01/20/18 20:46 Dose: 7.5 mg Admin: 01/19/18 20:02 Dose: 7.5 mg Tramadol HCl (Ultram) 50 mg PO Q8H [facility] Last Admin: 01/21/18 11:02 Dose: 50 mg Admin: 01/21/18 04:20 Dose: 50 mg Admin: 01/20/18 18:03 Dose: 50 mg Admin: 01/20/18 10:33 Dose: 50 mg Admin: 01/20/18 02:56 Dose: 50 mg Admin: 01/19/18 18:04 Dose: 50 mg Admin: 01/19/18 11:17 Dose: 50 mg Trazodone HCl (Trazodone) 100 mg PO BEDTIME [facility] Last Admin: 01/20/18 20:46 Dose: 100 mg Admin: 01/19/18 20:01 Dose: 100 mg - Assessment Assessment (Free Text/Narrative):: POD#1 - IM paul placement for left femoral shaft fracture - Plan Plan (Free Text/Narrative):: 1. Medical management per Hospitalist service. Nursing staff states the pt will receive 2 units of blood today. Hgb 8.0. 2. Lovenox, SCDs, TEDs for VTE prophylaxis. 3. P.T. and O.T. Continue with WBAT. 4. Suspect discharge to [place] for continued therapy and monitoring. 5. The pt states her pain is controlled with the current regimen. The pt's case was discussed with Dr. Lanza.
[2018-01-21] MEDS ORDERED: Furosemide 40 MG/4 ML VIAL IVPUSH ONE (12:00)
--- NOTE | 2018-01-21 12:53 | CR ---
Left femur: Multiple fluoroscopic spot views were obtained utilizing C-arm device. Study shows placement of intramedullary paul and reduction of previous femur fracture. Fluoroscopy time is given as 394.7 seconds. Impression: 1. Procedural study showing intramedullary paul placement and reduction of previous proximal femur fracture. Diagnostic code #2
--- NOTE | 2018-01-21 12:53 | CR ---
Left femur: Two views of the left femur were obtained. Comparison: Prior preoperative femur study of 01/19/18. Previous femur fracture shows evidence of reduction. There remains minimal displacement by about 7 mm. Intramedullary paul is in place. Skin arden are present. Soft tissue swelling is noted. Impression: 1. Satisfactory radiographic appearance of reduction and fixation of previous femur fracture. Diagnostic code #2
[2018-01-21] MEDS ORDERED: HYDROmorphone 0.5 MG/0.5 ML Syringe IM ONE (13:17)
[2018-01-21] MEDS: HYDROmorphone 0.5 MG/0.5 ML SYRINGE IVPUSH PRN ×2 (13:22→18:07)
[2018-01-21] MEDS: Sodium Chloride 0.9% 10 ML Syringe FLUSH PRN (18:06)
[2018-01-21] MEDS: LOXAPINE 25 MG PO SCH (18:08)
[2018-01-21] MEDS ORDERED: Non-Formulary Medication 1 Each (Acetaminophen 650 MG) PO PRN (19:05)
--- NOTE | 2018-01-21 19:15 | PCM.PN ---
- General Info Date of Service: 01/21/18 Functional Status: Reports: Pain Controlled, Tolerating Diet, Ambulating, Urinating - Review of Systems General: Reports: No Symptoms HEENT: Reports: No Symptoms Pulmonary: Reports: No Symptoms Cardiovascular: Reports: No Symptoms Gastrointestinal: Reports: No Symptoms Genitourinary: Reports: No Symptoms Musculoskeletal: Reports: No Symptoms Skin: Reports: No Symptoms Neurological: Reports: No Symptoms Psychiatric: Reports: No Symptoms - Patient Data Vitals - Most Recent: Last Vital Signs Temp 37.2 C 01/21/18 17:57 Pulse 111 H 01/21/18 17:57 Resp 16 01/21/18 17:57 BP 162/55 H 01/21/18 17:57 Pulse Ox 95 01/21/18 17:57 Weight - Most Recent: 84.323 kg I&O - Last 24 Hours: Intake & Output 01/21/18 01/21/18 01/21/18 06:59 14:59 22:59 Intake Total 450 1320 1500 Output Total 175 250 Balance 275 1320 1250 Lab Results Last 24 Hours: Laboratory Results - last 24 hr 01/19/18 01/20/18 01/21/18 Range/Units 05:45 22:00 05:59 WBC (3.98-10.04) K/mm3 RBC (3.98-5.22) M/mm3 Hgb (11.2-15.7) gm/L Hct (34.1-44.9) % MCV (79.4-94.8) fl MCH (25.6-32.2) pg MCHC (32.2-35.5) g/dl RDW Std Deviation (36.4-46.3) fL Plt Count (182-369) K/mm3 MPV (9.4-12.3) fl Neut % (Auto) (34.0-71.1) % Lymph % (Auto) (19.3-51.7) % Ada % (Auto) (4.7-12.5) % Eos % (Auto) (0.7-5.8) Baso % (Auto) (0.1-1.2) % Neut # (Auto) (1.56-6.13) K/mm3 Lymph # (Auto) (1.18-3.74) K/mm3 Ada # (Auto) (0.24-0.36) K/mm3 Eos # (Auto) (0.04-0.36) K/mm3 Baso # (Auto) (0.01-0.08) K/mm3 Sodium (136-145) mEq/L Potassium (3.5-5.1) mEq/L Chloride (98-107) mEq/L Carbon Dioxide (21-32) mEq/L Anion Gap (5-15) BUN (7-18) mg/dL Creatinine (0.55-1.02) mg/dL Est Cr Clr Drug Dosing mL/min Estimated GFR (MDRD) (>60) mL/min BUN/Creatinine Ratio (14-18) Glucose (80-115) mg/dL POC Glucose 197 H 147 H (80-115) mg/dL Lactic Acid (0.4-2.0) mmol/L Calcium (8.5-10.1) mg/dL Magnesium (1.8-2.4) mg/dl Total Bilirubin (0.2-1.0) mg/dL AST (15-37) U/L ALT (14-59) U/L Alkaline Phosphatase (46-116) U/L C-Reactive Protein (<1.0) mg/dL NT-Pro-B Natriuret Pep (0-125) pg/mL Total Protein (6.4-8.2) g/dl Albumin (3.4-5.0) g/dl Globulin gm/dL Albumin/Globulin Ratio (1-2) Blood Type A POSITIVE Gel Antibody Screen Negative Crossmatch See Detail 01/21/18 01/21/18 01/21/18 Range/Units 06:00 06:00 06:00 WBC 12.94 H (3.98-10.04) K/mm3 RBC 2.59 L (3.98-5.22) M/mm3 Hgb 8.5 L (11.2-15.7) gm/L Hct 25.2 L (34.1-44.9) % MCV 97.3 H (79.4-94.8) fl MCH 32.8 H (25.6-32.2) pg MCHC 33.7 (32.2-35.5) g/dl RDW Std Deviation 55.1 H (36.4-46.3) fL Plt Count 181 L (182-369) K/mm3 MPV 9.0 L (9.4-12.3) fl Neut % (Auto) 66.4 (34.0-71.1) % Lymph % (Auto) 21.6 (19.3-51.7) % Ada % (Auto) 10.7 (4.7-12.5) % Eos % (Auto) 0.9 (0.7-5.8) Baso % (Auto) 0.2 (0.1-1.2) % Neut # (Auto) 8.59 H (1.56-6.13) K/mm3 Lymph # (Auto) 2.79 (1.18-3.74) K/mm3 Ada # (Auto) 1.39 H (0.24-0.36) K/mm3 Eos # (Auto) 0.11 (0.04-0.36) K/mm3 Baso # (Auto) 0.03 (0.01-0.08) K/mm3 Sodium 133 L (136-145) mEq/L Potassium 4.3 (3.5-5.1) mEq/L Chloride 100 (98-107) mEq/L Carbon Dioxide 27 (21-32) mEq/L Anion Gap 10.3 (5-15) BUN 19 H (7-18) mg/dL Creatinine 1.3 H (0.55-1.02) mg/dL Est Cr Clr Drug Dosing 32.23 mL/min Estimated GFR (MDRD) 42 (>60) mL/min BUN/Creatinine Ratio 14.6 (14-18) Glucose 128 H (80-115) mg/dL POC Glucose (80-115) mg/dL Lactic Acid (0.4-2.0) mmol/L Calcium 8.1 L (8.5-10.1) mg/dL Magnesium 2.0 (1.8-2.4) mg/dl Total Bilirubin 0.6 (0.2-1.0) mg/dL AST 60 H (15-37) U/L ALT 31 (14-59) U/L Alkaline Phosphatase 68 (46-116) U/L C-Reactive Protein 2.2 H* (<1.0) mg/dL NT-Pro-B Natriuret Pep 1366 H (0-125) pg/mL Total Protein 6.0 L (6.4-8.2) g/dl Albumin 3.1 L (3.4-5.0) g/dl Globulin 2.9 gm/dL Albumin/Globulin Ratio 1.1 (1-2) Blood Type Gel Antibody Screen Crossmatch 01/21/18 01/21/18 01/21/18 Range/Units 06:00 10:06 11:13 WBC (3.98-10.04) K/mm3 RBC (3.98-5.22) M/mm3 Hgb 8.0 L (11.2-15.7) gm/L Hct 23.7 L (34.1-44.9) % MCV (79.4-94.8) fl MCH (25.6-32.2) pg MCHC (32.2-35.5) g/dl RDW Std Deviation (36.4-46.3) fL Plt Count (182-369) K/mm3 MPV (9.4-12.3) fl Neut % (Auto) (34.0-71.1) % Lymph % (Auto) (19.3-51.7) % Ada % (Auto) (4.7-12.5) % Eos % (Auto) (0.7-5.8) Baso % (Auto) (0.1-1.2) % Neut # (Auto) (1.56-6.13) K/mm3 Lymph # (Auto) (1.18-3.74) K/mm3 Ada # (Auto) (0.24-0.36) K/mm3 Eos # (Auto) (0.04-0.36) K/mm3 Baso # (Auto) (0.01-0.08) K/mm3 Sodium (136-145) mEq/L Potassium (3.5-5.1) mEq/L Chloride (98-107) mEq/L Carbon Dioxide (21-32) mEq/L Anion Gap (5-15) BUN (7-18) mg/dL Creatinine (0.55-1.02) mg/dL Est Cr Clr Drug Dosing mL/min Estimated GFR (MDRD) (>60) mL/min BUN/Creatinine Ratio (14-18) Glucose (80-115) mg/dL POC Glucose 193 H (80-115) mg/dL Lactic Acid 2.1 H (0.4-2.0) mmol/L Calcium (8.5-10.1) mg/dL Magnesium (1.8-2.4) mg/dl Total Bilirubin (0.2-1.0) mg/dL AST (15-37) U/L ALT (14-59) U/L Alkaline Phosphatase (46-116) U/L C-Reactive Protein (<1.0) mg/dL NT-Pro-B Natriuret Pep (0-125) pg/mL Total Protein (6.4-8.2) g/dl Albumin (3.4-5.0) g/dl Globulin gm/dL Albumin/Globulin Ratio (1-2) Blood Type Gel Antibody Screen Crossmatch 01/21/18 Range/Units 16:55 WBC (3.98-10.04) K/mm3 RBC (3.98-5.22) M/mm3 Hgb (11.2-15.7) gm/L Hct (34.1-44.9) % MCV (79.4-94.8) fl MCH (25.6-32.2) pg MCHC (32.2-35.5) g/dl RDW Std Deviation (36.4-46.3) fL Plt Count (182-369) K/mm3 MPV (9.4-12.3) fl Neut % (Auto) (34.0-71.1) % Lymph % (Auto) (19.3-51.7) % Ada % (Auto) (4.7-12.5) % Eos % (Auto) (0.7-5.8) Baso % (Auto) (0.1-1.2) % Neut # (Auto) (1.56-6.13) K/mm3 Lymph # (Auto) (1.18-3.74) K/mm3 Ada # (Auto) (0.24-0.36) K/mm3 Eos # (Auto) (0.04-0.36) K/mm3 Baso # (Auto) (0.01-0.08) K/mm3 Sodium (136-145) mEq/L Potassium (3.5-5.1) mEq/L Chloride (98-107) mEq/L Carbon Dioxide (21-32) mEq/L Anion Gap (5-15) BUN (7-18) mg/dL Creatinine (0.55-1.02) mg/dL Est Cr Clr Drug Dosing mL/min Estimated GFR (MDRD) (>60) mL/min BUN/Creatinine Ratio (14-18) Glucose (80-115) mg/dL POC Glucose 166 H (80-115) mg/dL Lactic Acid (0.4-2.0) mmol/L Calcium (8.5-10.1) mg/dL Magnesium (1.8-2.4) mg/dl Total Bilirubin (0.2-1.0) mg/dL AST (15-37) U/L ALT (14-59) U/L Alkaline Phosphatase (46-116) U/L C-Reactive Protein (<1.0) mg/dL NT-Pro-B Natriuret Pep (0-125) pg/mL Total Protein (6.4-8.2) g/dl Albumin (3.4-5.0) g/dl Globulin gm/dL Albumin/Globulin Ratio (1-2) Blood Type Gel Antibody Screen Crossmatch Med Orders - Current: Current Medications Acetaminophen (Tylenol) 650 mg PO Q6H PRN PRN Reason: Pain/Fever Last Admin: 01/20/18 08:27 Dose: 650 mg Hydrocodone Bitart/Acetaminophen ([place] 325-5 Mg) 1 - 2 tab PO Q4H PRN PRN Reason: Pain Last Admin: 01/21/18 15:20 Dose: 2 tab Albuterol (Proventil Neb Soln) 2.5 mg NEB Q2H PRN PRN Reason: Shortness Of Breath/wheezing Albuterol/Ipratropium (Duoneb 3.0-0.5 Mg/3 Ml) 3 ml NEB Q4H PRN PRN Reason: Shortness Of Breath/wheezing Artificial Tears (Isopto Tears 0.5% Ophth Soln) 0 ml EYEBOTH BID [facility] Last Admin: 01/21/18 08:11 Dose: 1 drop Bisacodyl (Dulcolax) 5 mg PO DAILY PRN PRN Reason: Constipation Clonidine HCl (Catapres) 0.1 mg PO Q8H [facility] Last Admin: 01/21/18 12:38 Dose: 0.1 mg Cyclobenzaprine HCl (Flexeril) 10 mg PO TID PRN PRN Reason: Muscle Spasm Last Admin: 01/21/18 16:57 Dose: 10 mg Dextrose/Water (Dextrose 50% In Water) 50 ml IVPUSH ASDIRECTED PRN PRN Reason: Hypoglycemia Diphenhydramine HCl (Benadryl) 25 mg IVPUSH Q6H PRN PRN Reason: Pruritis Last Admin: 01/20/18 23:35 Dose: 25 mg Docusate Sodium (Colace) 100 mg PO BID PRN PRN Reason: Constipation Docusate Sodium (Colace) 100 mg PO BID [facility] Last Admin: 01/21/18 08:10 Dose: 100 mg Enoxaparin Sodium (Lovenox) 40 mg SUBCUT DAILY [facility] Last Admin: 01/21/18 08:11 Dose: 40 mg Famotidine (Pepcid) 20 mg PO DAILY [facility] Furosemide (Lasix) 40 mg PO DAILY [facility] Last Admin: 01/21/18 08:10 Dose: 40 mg Hydralazine HCl (Apresoline) 20 mg IVPUSH Q6H PRN PRN Reason: Hypertension Last Admin: 01/20/18 08:57 Dose: 20 mg Hydromorphone HCl (Dilaudid) 0.5 mg IVPUSH Q4H PRN PRN Reason: Pain Last Admin: 01/21/18 18:07 Dose: 0.5 mg Insulin Aspart (Novolog) 0 unit SUBCUT QIDACANDBED [facility]; Protocol Last Admin: 01/21/18 16:56 Dose: 1 unit Levothyroxine Sodium (Synthroid) 100 mcg PO DAILY@0600 [facility] Last Admin: 01/21/18 05:28 Dose: 100 mcg Levothyroxine Sodium (Synthroid) 100 mcg PO DAILY [facility] Magnesium Hydroxide (Milk Of Magnesia) 30 ml PO Q12H PRN PRN Reason: Constipation Memantine (Namenda) 5 mg PO DAILY [facility] Last Admin: 01/21/18 08:10 Dose: 5 mg Metformin HCl (Glucophage) 500 mg PO BIDMEALS [facility] Metoprolol Succinate (Toprol Xl) 25 mg PO DAILY [facility] Metoprolol Tartrate (Lopressor) 5 mg IVPUSH Q4H PRN PRN Reason: Hypertension Last Admin: 01/21/18 09:45 Dose: 5 mg Naloxone HCl (Narcan) 0.1 mg IVPUSH Q5M PRN PRN Reason: Oversedation Non-Formulary Medication (Acetaminophen) 650 mg PO Q8H PRN PRN Reason: Pain Ondansetron HCl (Zofran) 4 mg IVPUSH Q4H PRN PRN Reason: Nausea/Vomiting Last Admin: 01/20/18 23:35 Dose: 4 mg Imatinib Mesylate [ (Gleevec] 600 Mg) 0 each PO DAILY [facility] Last Admin: 01/21/18 08:12 Dose: 600 each Loxapine 50 Mg 0 each PO BEDTIME CELI Last Admin: 01/20/18 20:46 Dose: 50 each Loxapine 25 Mg 0 each PO DAILY@1800 [facility] Last Admin: 01/21/18 18:08 Dose: 1 each Polyethylene Glycol (Miralax) 17 gm PO DAILY PRN PRN Reason: Constipation Senna/Docusate Sodium (Senna Plus) 1 tab PO BID PRN PRN Reason: Constipation Simvastatin (Zocor) 10 mg PO BEDTIME [facility] Last Admin: 01/20/18 20:46 Dose: 10 mg Sodium Chloride (Saline Flush) 10 ml FLUSH ONETIME PRN PRN Reason: IV FLUSH Last Admin: 01/21/18 18:06 Dose: 10 ml Spironolactone (Aldactone) 25 mg PO DAILY [facility] Last Admin: 01/21/18 08:10 Dose: 25 mg Temazepam (Restoril) 7.5 mg PO BEDTIME [facility] Last Admin: 01/20/18 20:46 Dose: 7.5 mg Tramadol HCl (Ultram) 50 mg PO Q8H [facility] Last Admin: 01/21/18 11:02 Dose: 50 mg Trazodone HCl (Trazodone) 100 mg PO BEDTIME [facility] Last Admin: 01/20/18 20:46 Dose: 100 mg Discontinued Medications Albuterol (Proventil Neb Soln) 2.5 mg NEB ONETIME ONE Stop: 01/20/18 13:58 Last Admin: 01/20/18 19:13 Dose: Not Given Artificial Tears (Isopto Tears 0.5% Ophth Soln) 0 ml EYEBOTH BID [facility] Last Admin: 01/19/18 15:00 Dose: Not Given Artificial Tears (Isopto Tears 0.5% Ophth Soln) 0 ml EYEBOTH BID [facility] Last Admin: 01/19/18 14:20 Dose: 1 drop Bupivacaine HCl (Sensorcaine-Mpf 0.75%) Confirm Administered Dose 30 ml .ROUTE .STK-MED ONE Stop: 01/20/18 11:45 Bupivacaine HCl (Marcaine 0.25%) Confirm Administered Dose 30 ml .ROUTE .[facility] ONE Stop: 01/20/18 12:15 Last Admin: 01/20/18 13:48 Dose: 30 ml Cefazolin Sodium (Ancef) Confirm Administered Dose 2 gm .ROUTE .[facility] ONE Stop: 01/20/18 11:46 Clonidine HCl (Catapres) 0.3 mg PO BID [facility] Clonidine HCl (Catapres) 0.1 mg PO ONETIME ONE Stop: 01/19/18 19:38 Last Admin: 01/19/18 19:59 Dose: 0.1 mg Dextrose (Glutose 15) 15 gm PO ASDIRECTED PRN PRN Reason: LOW BS Famotidine (Pepcid) 20 mg PO BID [facility] Last Admin: 01/19/18 13:10 Dose: 20 mg Famotidine (Pepcid) 20 mg PO Q12H [facility] Last Admin: 01/20/18 17:13 Dose: Not Given Famotidine (Pepcid) 20 mg PO BID@0600,1800 [facility] Last Admin: 01/21/18 05:28 Dose: 20 mg Fentanyl (Sublimaze) Confirm Administered Dose 100 mcg .ROUTE .[facility] ONE Stop: 01/20/18 11:46 Fentanyl (Sublimaze) 50 mcg IVPUSH Q5M PRN PRN Reason: Pain Furosemide (Lasix) 40 mg PO TID [facility] Last Admin: 01/19/18 14:19 Dose: 40 mg Furosemide (Lasix) 40 mg PO TID [facility] Furosemide (Lasix) 40 mg PO DAILY [facility] Furosemide (Lasix) 40 mg IVPUSH NOW ONE Stop: 01/20/18 05:01 Last Admin: 01/20/18 06:00 Dose: 40 mg Furosemide (Lasix) 40 mg IVPUSH ONETIME ONE Stop: 01/21/18 12:01 Last Admin: 01/21/18 13:27 Dose: 40 mg Hydromorphone HCl (Dilaudid) 1 mg IVPUSH ONETIME ONE Stop: 01/19/18 05:25 Last Admin: 01/19/18 05:48 Dose: 1 mg Hydromorphone HCl (Dilaudid) 0.5 mg IVPUSH ONETIME ONE Stop: 01/19/18 07:33 Last Admin: 01/19/18 07:53 Dose: 0.5 mg Hydromorphone HCl (Dilaudid) 0.5 mg IM ONETIME ONE Stop: 01/21/18 13:18 Last Admin: 01/21/18 13:15 Dose: Not Given Sodium Chloride (Normal Saline) 1,000 mls @ 250 mls/hr IV ASDIRECTED [facility] Last Admin: 01/19/18 05:47 Dose: 250 mls/hr Lactated Ringer's (Ringers, Lactated) 1,000 mls @ 125 mls/hr IV ASDIRECTED [facility] Last Infusion: 01/20/18 12:30 Dose: 0 mls/hr Vancomycin HCl 1 gm/ Sodium (Chloride) 250 mls @ 250 mls/hr IV ONETIME ONE Stop: 01/20/18 14:14 Last Admin: 01/20/18 19:13 Dose: Not Given Sodium Chloride (Normal Saline) Confirm Administered Dose 100 mls @ as directed .ROUTE .STK-MED ONE Stop: 01/20/18 14:00 Lactated Ringer's (Ringers, Lactated) Confirm Administered Dose 1,000 mls @ as directed .ROUTE .STK-MED ONE Stop: 01/20/18 14:49 Lactated Ringer's (Ringers, Lactated) Confirm Administered Dose 1,000 mls @ as directed .ROUTE .STK-MED ONE Stop: 01/20/18 14:49 Cefazolin Sodium/Dextrose 2 gm (/ Premix) 50 mls @ 100 mls/hr IV Q8H CELI Stop: 01/21/18 12:29 Last Admin: 01/21/18 11:04 Dose: 100 mls/hr Sodium Chloride (Normal Saline) 500 mls @ 75 mls/hr IV ONETIME ONE Stop: 01/21/18 17:39 Last Admin: 01/21/18 11:44 Dose: 75 mls/hr Iopamidol (Isovue-300 (61%)) 100 ml IVPUSH ONETIME ONE Stop: 01/19/18 15:46 Last Admin: 01/19/18 15:49 Dose: 100 ml Ketamine HCl (Ketalar) Confirm Administered Dose 500 mg .ROUTE .STK-MED ONE Stop: 01/20/18 11:47 Ketorolac Tromethamine (Toradol) 15 mg IVPUSH Q6H [facility] Stop: 01/20/18 17:01 Last Admin: 01/20/18 18:02 Dose: 15 mg Lidocaine HCl (Xylocaine-Mpf 1%) Confirm Administered Dose 5 ml .ROUTE .STK-MED ONE Stop: 01/20/18 12:33 Losartan Potassium (Cozaar) 100 mg PO DAILY [facility] Last Admin: 01/19/18 14:19 Dose: 100 mg Metoprolol Succinate (Toprol Xl) 25 mg PO DAILY [facility] Last Admin: 01/19/18 14:14 Dose: 25 mg Midazolam HCl (Versed 1 Mg/Ml) Confirm Administered Dose 2 mg .ROUTE .STK-MED ONE Stop: 01/20/18 11:46 Midazolam HCl (Versed 1 Mg/Ml) Confirm Administered Dose 2 mg .ROUTE .STK-MED ONE Stop: 01/20/18 13:28 Morphine Sulfate (Duramorph Pf) Confirm Administered Dose 1 mg .ROUTE .STK-MED ONE Stop: 01/20/18 12:28 Naloxone HCl (Narcan) 0.5 mg IVPUSH ONETIME ONE Stop: 01/19/18 17:04 Last Admin: 01/19/18 17:28 Dose: 0.5 mg Ondansetron HCl (Zofran) 4 mg IVPUSH ONETIME ONE Stop: 01/19/18 05:25 Last Admin: 01/19/18 05:47 Dose: 4 mg Ondansetron HCl (Zofran) 4 mg IVPUSH ONETIME PRN PRN Reason: Nausea/Vomiting Ondansetron HCl (Zofran) Confirm Administered Dose 4 mg .ROUTE .STK-MED ONE Stop: 01/20/18 14:49 Pantoprazole Sodium (Protonix Iv) 40 mg IVPUSH DAILY [facility] Pantoprazole Sodium (Protonix Iv) 40 mg IVPUSH BID [facility] Last Admin: 01/20/18 09:37 Dose: 40 mg Loxapine 25 Mg 0 each PO DAILY@1400 [facility] Last Admin: 01/19/18 15:00 Dose: Not Given Phenylephrine HCl (Rodney-Synephrine) Confirm Administered Dose 10 mg .ROUTE .STK- MED ONE Stop: 01/20/18 14:00 Phenylephrine HCl (Phenylephrine In Ns 100 Mcg/Ml) Confirm Administered Dose 1 mg .ROUTE .STK-MED ONE Stop: 01/20/18 14:01 Propofol (Diprivan 20 Ml) Confirm Administered Dose 600 mg .ROUTE .STK-MED ONE Stop: 01/20/18 11:46 Temazepam (Restoril) 30 mg PO BEDTIME CELI - Exam Quality Assessment: DVT Prophylaxis General: Alert, Oriented, Cooperative, No Acute Distress HEENT: Pupils Equal, Pupils Reactive, EOMI Neck: Trachea Midline, No JVD Lungs: Normal Respiratory Effort Cardiovascular: Regular Rate, Regular Rhythm GI/Abdominal Exam: Normal Bowel Sounds, Soft, Non-Tender, No Organomegaly, No Distention (Female) Exam: Deferred Back Exam: Normal Inspection Extremities: Normal Inspection, Non-Tender, Normal Capillary Refill Skin: Warm Wound/Incisions: Dressing Dry and Intact Neurological: No New Focal Deficit Psy/Mental Status: Alert, Normal Affect, Normal Mood - Problem List Review Problem List Initiated/Reviewed/Updated: Yes - My Orders Last 24 Hours: My Active Orders 01/21/18 09:00 Furosemide [Lasix] 40 mg PO DAILY 01/21/18 10:42 Transfuse PRBC [Transfuse Red Blood Cells] [COMM] Stat 01/21/18 10:44 Bladder Scan [RC] .PRN 01/21/18 19:05 Acetaminophen 650 mg PO Q8H PRN 01/21/18 20:00 HEMOGLOBIN/HEMATOCRIT,HH [HEME] Routine 01/22/18 09:00 Famotidine [Pepcid] 20 mg PO DAILY Levothyroxine [Synthroid] 100 mcg PO DAILY Metoprolol Succinate [Toprol XL] 25 mg PO DAILY - Plan Plan:: I/P: Acute: Fracture of proximal end of femur, s/p fall ; POD 1: IM paul placement for left femoral shaft fracture -06/11 pain -Stable condition -Pain medication PRN -Bedrest, PT/OT after surgery -Continue supportive care Hyponatremia -Na -Monitor Hyperemesis--resolved -Risk factor: chemotherapy -Zofran Q4H -IV lactated ringers Chronic: Anemia -RBC ; Hgb ; Hct ; MCV ; MCHC -Monitor -Blood Type and Screen ordered -Replenish with PRBCs as needed; Hgb dropped, transfuse 2 units PRBCs, follow with Lasix CKD stage III -eGFR 47 -Creatinine 1.7 -NS IV started in ED--> D/C and start LR IV -Defer to PCP for f/u Diabetes Type II -Blood Glucose Checks QID -Continue at home Metformin 500mg -Sliding scale Insulin -A1C ordered -ADA diet after surgery -Defer to PCP for f/u CHF -BNP -Continue at home Lasix 40mg TID -Monitor Traumatic Brain Injury Leukemia --> Continue at home Gleevec 600mg here HTN--home meds restarted Plan: Transfered to Med-Surg telemetry unit today She remains stable Continue at home meds as above Consult with Dr. Lanza for L Hip Surgery tomorrow Other orders as indicated above CM/SW for discharge planning Routine AM labs Continue PT/OT DVT Prophylaxis: SCD Code Status: Full code (CPR, Defib, Intubation)- However "No life sustaining treatment on machines" -per Sister Beti, Power of Area Director Of Home Health Sales PCP: Dr. Cespedes
[2018-01-21] MEDS: Simvastatin 10 MG Tab PO SCH (20:34)
[2018-01-21] MEDS: traZODone 50 MG Tab PO SCH (20:35)
[2018-01-21] MEDS: Temazepam 7.5 MG Cap PO SCH (20:35)
[2018-01-22] MEDS: traMADol 50 MG Tab PO SCH ×3 (02:55→18:13)
[2018-01-22] MEDS: cloNIDine 0.1 MG Tab PO SCH ×3 (04:14→20:35)
[2018-01-22] MEDS: Levothyroxine 100 MCG Tab PO SCH (06:04)
[2018-01-22] MEDS: Insulin Aspart 100 Units/ML 3 ML Pen SUBCUT SCH ×4 (06:15→22:22)
--- NOTE | 2018-01-22 07:14 | PCM.SURGPN ---
- General Info Date of Service: 01/22/18 POD#: 2 Functional Status: Reports: Other (The pt states her pain is controlled with current regimen.) - Review of Systems Musculoskeletal: Reports: Other (The pt has been slow to progress with mobility. ) - Patient Data Vitals - Most Recent: Last Vital Signs Temp 98 F 01/22/18 00:00 Pulse 108 H 01/22/18 04:00 Resp 14 01/22/18 04:00 BP 158/54 H 01/22/18 04:14 Pulse Ox 95 01/22/18 04:00 Weight - Most Recent: 192 lb 6.4 oz I&O - Last 24 Hours: Intake & Output 01/21/18 01/22/18 01/22/18 22:59 06:59 14:59 Intake Total 1500 800 Output Total 250 200 Balance 1250 600 Lab Results Last 24 Hrs: Laboratory Results - last 24 hr 01/19/18 01/20/18 01/21/18 Range/Units 05:45 22:00 05:59 WBC (3.98-10.04) K/mm3 RBC (3.98-5.22) M/mm3 Hgb (11.2-15.7) gm/L Hct (34.1-44.9) % MCV (79.4-94.8) fl MCH (25.6-32.2) pg MCHC (32.2-35.5) g/dl RDW Std Deviation (36.4-46.3) fL Plt Count (182-369) K/mm3 MPV (9.4-12.3) fl Neut % (Auto) (34.0-71.1) % Lymph % (Auto) (19.3-51.7) % [place] % (Auto) (4.7-12.5) % Eos % (Auto) (0.7-5.8) Baso % (Auto) (0.1-1.2) % Neut # (Auto) (1.56-6.13) K/mm3 Lymph # (Auto) (1.18-3.74) K/mm3 [place] # (Auto) (0.24-0.36) K/mm3 Eos # (Auto) (0.04-0.36) K/mm3 Baso # (Auto) (0.01-0.08) K/mm3 Sodium (136-145) mEq/L Potassium (3.5-5.1) mEq/L Chloride (98-107) mEq/L Carbon Dioxide (21-32) mEq/L Anion Gap (5-15) BUN (7-18) mg/dL Creatinine (0.55-1.02) mg/dL Est Cr Clr Drug Dosing mL/min Estimated GFR (MDRD) (>60) mL/min BUN/Creatinine Ratio (14-18) Glucose (80-115) mg/dL POC Glucose 197 H 147 H (80-115) mg/dL Lactic Acid (0.4-2.0) mmol/L Calcium (8.5-10.1) mg/dL Magnesium (1.8-2.4) mg/dl Total Bilirubin (0.2-1.0) mg/dL AST (15-37) U/L ALT (14-59) U/L Alkaline Phosphatase (46-116) U/L C-Reactive Protein (<1.0) mg/dL NT-Pro-B Natriuret Pep (0-125) pg/mL Total Protein (6.4-8.2) g/dl Albumin (3.4-5.0) g/dl Globulin gm/dL Albumin/Globulin Ratio (1-2) Blood Type A POSITIVE Gel Antibody Screen Negative Crossmatch See Detail 01/21/18 01/21/18 01/21/18 Range/Units 10:06 11:13 16:55 WBC (3.98-10.04) K/mm3 RBC (3.98-5.22) M/mm3 Hgb 8.0 L (11.2-15.7) gm/L Hct 23.7 L (34.1-44.9) % MCV (79.4-94.8) fl MCH (25.6-32.2) pg MCHC (32.2-35.5) g/dl RDW Std Deviation (36.4-46.3) fL Plt Count (182-369) K/mm3 MPV (9.4-12.3) fl Neut % (Auto) (34.0-71.1) % Lymph % (Auto) (19.3-51.7) % [place] % (Auto) (4.7-12.5) % Eos % (Auto) (0.7-5.8) Baso % (Auto) (0.1-1.2) % Neut # (Auto) (1.56-6.13) K/mm3 Lymph # (Auto) (1.18-3.74) K/mm3 [place] # (Auto) (0.24-0.36) K/mm3 Eos # (Auto) (0.04-0.36) K/mm3 Baso # (Auto) (0.01-0.08) K/mm3 Sodium (136-145) mEq/L Potassium (3.5-5.1) mEq/L Chloride (98-107) mEq/L Carbon Dioxide (21-32) mEq/L Anion Gap (5-15) BUN (7-18) mg/dL Creatinine (0.55-1.02) mg/dL Est Cr Clr Drug Dosing mL/min Estimated GFR (MDRD) (>60) mL/min BUN/Creatinine Ratio (14-18) Glucose (80-115) mg/dL POC Glucose 193 H 166 H (80-115) mg/dL Lactic Acid (0.4-2.0) mmol/L Calcium (8.5-10.1) mg/dL Magnesium (1.8-2.4) mg/dl Total Bilirubin (0.2-1.0) mg/dL AST (15-37) U/L ALT (14-59) U/L Alkaline Phosphatase (46-116) U/L C-Reactive Protein (<1.0) mg/dL NT-Pro-B Natriuret Pep (0-125) pg/mL Total Protein (6.4-8.2) g/dl Albumin (3.4-5.0) g/dl Globulin gm/dL Albumin/Globulin Ratio (1-2) Blood Type Gel Antibody Screen Crossmatch 01/21/18 01/21/18 01/22/18 Range/Units 19:59 20:00 05:49 WBC 9.19 (3.98-10.04) K/mm3 RBC 3.25 L (3.98-5.22) M/mm3 Hgb 9.8 L 10.4 L (11.2-15.7) gm/L Hct 28.6 L 30.3 L (34.1-44.9) % MCV 93.2 (79.4-94.8) fl MCH 32.0 (25.6-32.2) pg MCHC 34.3 (32.2-35.5) g/dl RDW Std Deviation 51.2 H (36.4-46.3) fL Plt Count 135 L (182-369) K/mm3 MPV 8.8 L (9.4-12.3) fl Neut % (Auto) 67.5 (34.0-71.1) % Lymph % (Auto) 18.3 L (19.3-51.7) % [place] % (Auto) 11.6 (4.7-12.5) % Eos % (Auto) 2.0 (0.7-5.8) Baso % (Auto) 0.4 (0.1-1.2) % Neut # (Auto) 6.20 H (1.56-6.13) K/mm3 Lymph # (Auto) 1.68 (1.18-3.74) K/mm3 [place] # (Auto) 1.07 H (0.24-0.36) K/mm3 Eos # (Auto) 0.18 (0.04-0.36) K/mm3 Baso # (Auto) 0.04 (0.01-0.08) K/mm3 Sodium (136-145) mEq/L Potassium (3.5-5.1) mEq/L Chloride (98-107) mEq/L Carbon Dioxide (21-32) mEq/L Anion Gap (5-15) BUN (7-18) mg/dL Creatinine (0.55-1.02) mg/dL Est Cr Clr Drug Dosing mL/min Estimated GFR (MDRD) (>60) mL/min BUN/Creatinine Ratio (14-18) Glucose (80-115) mg/dL POC Glucose 197 H (80-115) mg/dL Lactic Acid (0.4-2.0) mmol/L Calcium (8.5-10.1) mg/dL Magnesium (1.8-2.4) mg/dl Total Bilirubin (0.2-1.0) mg/dL AST (15-37) U/L ALT (14-59) U/L Alkaline Phosphatase (46-116) U/L C-Reactive Protein (<1.0) mg/dL NT-Pro-B Natriuret Pep (0-125) pg/mL Total Protein (6.4-8.2) g/dl Albumin (3.4-5.0) g/dl Globulin gm/dL Albumin/Globulin Ratio (1-2) Blood Type Gel Antibody Screen Crossmatch 01/22/18 01/22/18 01/22/18 Range/Units 05:49 05:49 05:49 WBC (3.98-10.04) K/mm3 RBC (3.98-5.22) M/mm3 Hgb (11.2-15.7) gm/L Hct (34.1-44.9) % MCV (79.4-94.8) fl MCH (25.6-32.2) pg MCHC (32.2-35.5) g/dl RDW Std Deviation (36.4-46.3) fL Plt Count (182-369) K/mm3 MPV (9.4-12.3) fl Neut % (Auto) (34.0-71.1) % Lymph % (Auto) (19.3-51.7) % [place] % (Auto) (4.7-12.5) % Eos % (Auto) (0.7-5.8) Baso % (Auto) (0.1-1.2) % Neut # (Auto) (1.56-6.13) K/mm3 Lymph # (Auto) (1.18-3.74) K/mm3 [place] # (Auto) (0.24-0.36) K/mm3 Eos # (Auto) (0.04-0.36) K/mm3 Baso # (Auto) (0.01-0.08) K/mm3 Sodium 130 L (136-145) mEq/L Potassium 3.9 (3.5-5.1) mEq/L Chloride 99 (98-107) mEq/L Carbon Dioxide 27 (21-32) mEq/L Anion Gap 7.9 (5-15) BUN 17 (7-18) mg/dL Creatinine 0.9 (0.55-1.02) mg/dL Est Cr Clr Drug Dosing 46.55 mL/min Estimated GFR (MDRD) > 60 (>60) mL/min BUN/Creatinine Ratio 18.9 H (14-18) Glucose 149 H (80-115) mg/dL POC Glucose (80-115) mg/dL Lactic Acid 0.9 (0.4-2.0) mmol/L Calcium 8.1 L (8.5-10.1) mg/dL Magnesium 1.9 (1.8-2.4) mg/dl Total Bilirubin 0.9 (0.2-1.0) mg/dL AST 77 H (15-37) U/L ALT 29 (14-59) U/L Alkaline Phosphatase 70 (46-116) U/L C-Reactive Protein 4.8 H* (<1.0) mg/dL NT-Pro-B Natriuret Pep 2548 H (0-125) pg/mL Total Protein 5.9 L (6.4-8.2) g/dl Albumin 2.8 L (3.4-5.0) g/dl Globulin 3.1 gm/dL Albumin/Globulin Ratio 0.9 L (1-2) Blood Type Gel Antibody Screen Crossmatch 01/22/18 Range/Units 06:02 WBC (3.98-10.04) K/mm3 RBC (3.98-5.22) M/mm3 Hgb (11.2-15.7) gm/L Hct (34.1-44.9) % MCV (79.4-94.8) fl MCH (25.6-32.2) pg MCHC (32.2-35.5) g/dl RDW Std Deviation (36.4-46.3) fL Plt Count (182-369) K/mm3 MPV (9.4-12.3) fl Neut % (Auto) (34.0-71.1) % Lymph % (Auto) (19.3-51.7) % [place] % (Auto) (4.7-12.5) % Eos % (Auto) (0.7-5.8) Baso % (Auto) (0.1-1.2) % Neut # (Auto) (1.56-6.13) K/mm3 Lymph # (Auto) (1.18-3.74) K/mm3 [place] # (Auto) (0.24-0.36) K/mm3 Eos # (Auto) (0.04-0.36) K/mm3 Baso # (Auto) (0.01-0.08) K/mm3 Sodium (136-145) mEq/L Potassium (3.5-5.1) mEq/L Chloride (98-107) mEq/L Carbon Dioxide (21-32) mEq/L Anion Gap (5-15) BUN (7-18) mg/dL Creatinine (0.55-1.02) mg/dL Est Cr Clr Drug Dosing mL/min Estimated GFR (MDRD) (>60) mL/min BUN/Creatinine Ratio (14-18) Glucose (80-115) mg/dL POC Glucose 146 H (80-115) mg/dL Lactic Acid (0.4-2.0) mmol/L Calcium (8.5-10.1) mg/dL Magnesium (1.8-2.4) mg/dl Total Bilirubin (0.2-1.0) mg/dL AST (15-37) U/L ALT (14-59) U/L Alkaline Phosphatase (46-116) U/L C-Reactive Protein (<1.0) mg/dL NT-Pro-B Natriuret Pep (0-125) pg/mL Total Protein (6.4-8.2) g/dl Albumin (3.4-5.0) g/dl Globulin gm/dL Albumin/Globulin Ratio (1-2) Blood Type Gel Antibody Screen Crossmatch Med Orders - Current: Current Medications Acetaminophen (Tylenol) 650 mg PO Q6H PRN PRN Reason: Pain/Fever Last Admin: 01/20/18 08:27 Dose: 650 mg Hydrocodone Bitart/Acetaminophen ([place] 325-5 Mg) 1 - 2 tab PO Q4H PRN PRN Reason: Pain Last Admin: 01/21/18 15:20 Dose: 2 tab Albuterol (Proventil Neb Soln) 2.5 mg NEB Q2H PRN PRN Reason: Shortness Of Breath/wheezing Albuterol/Ipratropium (Duoneb 3.0-0.5 Mg/3 Ml) 3 ml NEB Q4H PRN PRN Reason: Shortness Of Breath/wheezing Artificial Tears (Isopto Tears 0.5% Ophth Soln) 0 ml EYEBOTH BID [facility]ELI Last Admin: 01/21/18 20:36 Dose: 1 drop Bisacodyl (Dulcolax) 5 mg PO DAILY PRN PRN Reason: Constipation Clonidine HCl (Catapres) 0.1 mg PO Q8H [facility] Last Admin: 01/22/18 04:14 Dose: 0.1 mg Cyclobenzaprine HCl (Flexeril) 10 mg PO TID PRN PRN Reason: Muscle Spasm Last Admin: 01/21/18 16:57 Dose: 10 mg Dextrose/Water (Dextrose 50% In Water) 50 ml IVPUSH ASDIRECTED PRN PRN Reason: Hypoglycemia Diphenhydramine HCl (Benadryl) 25 mg IVPUSH Q6H PRN PRN Reason: Pruritis Last Admin: 01/20/18 23:35 Dose: 25 mg Docusate Sodium (Colace) 100 mg PO BID PRN PRN Reason: Constipation Docusate Sodium (Colace) 100 mg PO BID [facility] Last Admin: 01/21/18 20:34 Dose: 100 mg Enoxaparin Sodium (Lovenox) 40 mg SUBCUT DAILY [facility] Last Admin: 01/21/18 08:11 Dose: 40 mg Famotidine (Pepcid) 20 mg PO DAILY [facility] Furosemide (Lasix) 40 mg PO DAILY [facility] Last Admin: 01/21/18 08:10 Dose: 40 mg Hydralazine HCl (Apresoline) 20 mg IVPUSH Q6H PRN PRN Reason: Hypertension Last Admin: 01/20/18 08:57 Dose: 20 mg Hydromorphone HCl (Dilaudid) 0.5 mg IVPUSH Q4H PRN PRN Reason: Pain Last Admin: 01/21/18 18:07 Dose: 0.5 mg Insulin Aspart (Novolog) 0 unit SUBCUT QIDACANDBED [facility]; Protocol Last Admin: 01/22/18 06:15 Dose: Not Given Levothyroxine Sodium (Synthroid) 100 mcg PO DAILY@0600 [facility] Last Admin: 01/22/18 06:04 Dose: 100 mcg Levothyroxine Sodium (Synthroid) 100 mcg PO DAILY [facility] Magnesium Hydroxide (Milk Of Magnesia) 30 ml PO Q12H PRN PRN Reason: Constipation Memantine (Namenda) 5 mg PO DAILY [facility] Last Admin: 01/21/18 08:10 Dose: 5 mg Metformin HCl (Glucophage) 500 mg PO BIDMEALS [facility] Metoprolol Succinate (Toprol Xl) 25 mg PO DAILY [facility] Metoprolol Tartrate (Lopressor) 5 mg IVPUSH Q4H PRN PRN Reason: Hypertension Last Admin: 01/21/18 09:45 Dose: 5 mg Naloxone HCl (Narcan) 0.1 mg IVPUSH Q5M PRN PRN Reason: Oversedation Ondansetron HCl (Zofran) 4 mg IVPUSH Q4H PRN PRN Reason: Nausea/Vomiting Last Admin: 01/20/18 23:35 Dose: 4 mg Imatinib Mesylate [ (Gleevec] 600 Mg) 0 each PO DAILY [facility] Last Admin: 01/21/18 08:12 Dose: 600 each Loxapine 50 Mg 0 each PO BEDTIME [facility] Last Admin: 01/21/18 20:37 Dose: 50 each Loxapine 25 Mg 0 each PO DAILY@1800 [facility] Last Admin: 01/21/18 18:08 Dose: 1 each Polyethylene Glycol (Miralax) 17 gm PO DAILY PRN PRN Reason: Constipation Senna/Docusate Sodium (Senna Plus) 1 tab PO BID PRN PRN Reason: Constipation Simvastatin (Zocor) 10 mg PO BEDTIME [facility] Last Admin: 01/21/18 20:34 Dose: 10 mg Sodium Chloride (Saline Flush) 10 ml FLUSH ONETIME PRN PRN Reason: IV FLUSH Last Admin: 01/21/18 18:06 Dose: 10 ml Spironolactone (Aldactone) 25 mg PO DAILY [facility] Last Admin: 01/21/18 08:10 Dose: 25 mg Temazepam (Restoril) 7.5 mg PO BEDTIME [facility] Last Admin: 01/21/18 20:35 Dose: 7.5 mg Tramadol HCl (Ultram) 50 mg PO Q8H [facility] Last Admin: 01/22/18 02:55 Dose: 50 mg Trazodone HCl (Trazodone) 100 mg PO BEDTIME [facility] Last Admin: 01/21/18 20:35 Dose: 100 mg Discontinued Medications Albuterol (Proventil Neb Soln) 2.5 mg NEB ONETIME ONE Stop: 01/20/18 13:58 Last Admin: 01/20/18 19:13 Dose: Not Given Artificial Tears (Isopto Tears 0.5% Ophth Soln) 0 ml EYEBOTH BID [facility] Last Admin: 01/19/18 15:00 Dose: Not Given Artificial Tears (Isopto Tears 0.5% Ophth Soln) 0 ml EYEBOTH BID [facility] Last Admin: 01/19/18 14:20 Dose: 1 drop Bupivacaine HCl (Sensorcaine-Mpf 0.75%) Confirm Administered Dose 30 ml .ROUTE .STK-MED ONE Stop: 01/20/18 11:45 Bupivacaine HCl (Marcaine 0.25%) Confirm Administered Dose 30 ml .ROUTE .STK- MED ONE Stop: 01/20/18 12:15 Last Admin: 01/20/18 13:48 Dose: 30 ml Cefazolin Sodium (Ancef) Confirm Administered Dose 2 gm .ROUTE .STK-MED ONE Stop: 01/20/18 11:46 Clonidine HCl (Catapres) 0.3 mg PO BID [facility] Clonidine HCl (Catapres) 0.1 mg PO ONETIME ONE Stop: 01/19/18 19:38 Last Admin: 01/19/18 19:59 Dose: 0.1 mg Dextrose (Glutose 15) 15 gm PO ASDIRECTED PRN PRN Reason: LOW BS Famotidine (Pepcid) 20 mg PO BID [facility] Last Admin: 01/19/18 13:10 Dose: 20 mg Famotidine (Pepcid) 20 mg PO Q12H [facility] Last Admin: 01/20/18 17:13 Dose: Not Given Famotidine (Pepcid) 20 mg PO BID@0600,1800 [facility] Last Admin: 01/21/18 05:28 Dose: 20 mg Fentanyl (Sublimaze) Confirm Administered Dose 100 mcg .ROUTE .STK-MED ONE Stop: 01/20/18 11:46 Fentanyl (Sublimaze) 50 mcg IVPUSH Q5M PRN PRN Reason: Pain Furosemide (Lasix) 40 mg PO TID [facility] Last Admin: 01/19/18 14:19 Dose: 40 mg Furosemide (Lasix) 40 mg PO TID [facility] Furosemide (Lasix) 40 mg PO DAILY [facility] Furosemide (Lasix) 40 mg IVPUSH NOW ONE Stop: 01/20/18 05:01 Last Admin: 01/20/18 06:00 Dose: 40 mg Furosemide (Lasix) 40 mg IVPUSH ONETIME ONE Stop: 01/21/18 12:01 Last Admin: 01/21/18 13:27 Dose: 40 mg Hydromorphone HCl (Dilaudid) 1 mg IVPUSH ONETIME ONE Stop: 01/19/18 05:25 Last Admin: 01/19/18 05:48 Dose: 1 mg Hydromorphone HCl (Dilaudid) 0.5 mg IVPUSH ONETIME ONE Stop: 01/19/18 07:33 Last Admin: 01/19/18 07:53 Dose: 0.5 mg Hydromorphone HCl (Dilaudid) 0.5 mg IM ONETIME ONE Stop: 01/21/18 13:18 Last Admin: 01/21/18 13:15 Dose: Not Given Sodium Chloride (Normal Saline) 1,000 mls @ 250 mls/hr IV ASDIRECTED [facility] Last Admin: 01/19/18 05:47 Dose: 250 mls/hr Lactated Ringer's (Ringers, Lactated) 1,000 mls @ 125 mls/hr IV ASDIRECTED [facility] Last Infusion: 01/20/18 12:30 Dose: 0 mls/hr Vancomycin HCl 1 gm/ Sodium (Chloride) 250 mls @ 250 mls/hr IV ONETIME ONE Stop: 01/20/18 14:14 Last Admin: 01/20/18 19:13 Dose: Not Given Sodium Chloride (Normal Saline) Confirm Administered Dose 100 mls @ as directed .ROUTE .STK-MED ONE Stop: 01/20/18 14:00 Lactated Ringer's (Ringers, Lactated) Confirm Administered Dose 1,000 mls @ as directed .ROUTE .STK-MED ONE Stop: 01/20/18 14:49 Lactated Ringer's (Ringers, Lactated) Confirm Administered Dose 1,000 mls @ as directed .ROUTE .STK-MED ONE Stop: 01/20/18 14:49 Cefazolin Sodium/Dextrose 2 gm (/ Premix) 50 mls @ 100 mls/hr IV Q8H [facility] Stop: 01/21/18 12:29 Last Admin: 01/21/18 11:04 Dose: 100 mls/hr Sodium Chloride (Normal Saline) 500 mls @ 75 mls/hr IV ONETIME ONE Stop: 01/21/18 17:39 Last Admin: 01/21/18 11:44 Dose: 75 mls/hr Iopamidol (Isovue-300 (61%)) 100 ml IVPUSH ONETIME ONE Stop: 01/19/18 15:46 Last Admin: 01/19/18 15:49 Dose: 100 ml Ketamine HCl (Ketalar) Confirm Administered Dose 500 mg .ROUTE .STK-MED ONE Stop: 01/20/18 11:47 Ketorolac Tromethamine (Toradol) 15 mg IVPUSH Q6H [facility] Stop: 01/20/18 17:01 Last Admin: 01/20/18 18:02 Dose: 15 mg Lidocaine HCl (Xylocaine-Mpf 1%) Confirm Administered Dose 5 ml .ROUTE .STK-MED ONE Stop: 01/20/18 12:33 Losartan Potassium (Cozaar) 100 mg PO DAILY [facility] Last Admin: 01/19/18 14:19 Dose: 100 mg Metoprolol Succinate (Toprol Xl) 25 mg PO DAILY [facility] Last Admin: 01/19/18 14:14 Dose: 25 mg Midazolam HCl (Versed 1 Mg/Ml) Confirm Administered Dose 2 mg .ROUTE .STK-MED ONE Stop: 01/20/18 11:46 Midazolam HCl (Versed 1 Mg/Ml) Confirm Administered Dose 2 mg .ROUTE .STK-MED ONE Stop: 01/20/18 13:28 Morphine Sulfate (Duramorph Pf) Confirm Administered Dose 1 mg .ROUTE .STK-MED ONE Stop: 01/20/18 12:28 Naloxone HCl (Narcan) 0.5 mg IVPUSH ONETIME ONE Stop: 01/19/18 17:04 Last Admin: 01/19/18 17:28 Dose: 0.5 mg Non-Formulary Medication (Acetaminophen) 650 mg PO Q8H PRN PRN Reason: Pain Ondansetron HCl (Zofran) 4 mg IVPUSH ONETIME ONE Stop: 01/19/18 05:25 Last Admin: 01/19/18 05:47 Dose: 4 mg Ondansetron HCl (Zofran) 4 mg IVPUSH ONETIME PRN PRN Reason: Nausea/Vomiting Ondansetron HCl (Zofran) Confirm Administered Dose 4 mg .ROUTE .STK-MED ONE Stop: 01/20/18 14:49 Pantoprazole Sodium (Protonix Iv) 40 mg IVPUSH DAILY [facility] Pantoprazole Sodium (Protonix Iv) 40 mg IVPUSH BID [facility] Last Admin: 01/20/18 09:37 Dose: 40 mg Loxapine 25 Mg 0 each PO DAILY@1400 [facility] Last Admin: 01/19/18 15:00 Dose: Not Given Phenylephrine HCl (Rodney-Synephrine) Confirm Administered Dose 10 mg .ROUTE .STK- MED ONE Stop: 01/20/18 14:00 Phenylephrine HCl (Phenylephrine In Ns 100 Mcg/Ml) Confirm Administered Dose 1 mg .ROUTE .STK-MED ONE Stop: 01/20/18 14:01 Propofol (Diprivan 20 Ml) Confirm Administered Dose 600 mg .ROUTE .STK-MED ONE Stop: 01/20/18 11:46 Temazepam (Restoril) 30 mg PO BEDTIME [facility] - Exam Wound/Incisions: Dressing Dry and Intact General: Cooperative, No Acute Distress Lungs: Normal Respiratory Effort Extremities: Other (NVS intact for LLE. Shashi's negative for LLE.) - Problem List Review Problem List Initiated/Reviewed/Updated: Yes - My Orders Last 24 Hours: Active Orders 24 hr Category Date Time Status Bladder Scan [RC] .PRN Care 01/21/18 10:44 Active C-REACTIVE PROTEIN [CHEM] AM Lab 01/23/18 05:11 Ordered C-REACTIVE PROTEIN [CHEM] AM Lab 01/24/18 05:11 Ordered CBC WITH AUTO DIFF [HEME] AM Lab 01/23/18 05:11 Ordered CBC WITH AUTO DIFF [HEME] AM Lab 01/24/18 05:11 Ordered COMPREHENSIVE METABOLIC PN,CMP [CHEM] AM Lab 01/23/18 05:11 Ordered COMPREHENSIVE METABOLIC PN,CMP [CHEM] AM Lab 01/24/18 05:11 Ordered LACTIC ACID [CHEM] AM Lab 01/23/18 05:11 Ordered LACTIC ACID [CHEM] AM Lab 01/24/18 05:11 Ordered MAGNESIUM [CHEM] AM Lab 01/23/18 05:11 Ordered MAGNESIUM [CHEM] AM Lab 01/24/18 05:11 Ordered PRO B-TYPE NATRIUR PEPT,BNPPRO [CHEM] DAILY Lab 01/23/18 08:00 Ordered PRO B-TYPE NATRIUR PEPT,BNPPRO [CHEM] DAILY Lab 01/24/18 08:00 Ordered Enoxaparin [Lovenox] Med 01/21/18 09:00 Active 40 mg SUBCUT DAILY Famotidine [Pepcid] Med 01/22/18 09:00 Active 20 mg PO DAILY Furosemide [Lasix] Med 01/21/18 09:00 Active 40 mg PO DAILY Levothyroxine [Synthroid] Med 01/22/18 09:00 Active 100 mcg PO DAILY Metoprolol Succinate [Toprol XL] Med 01/22/18 09:00 Active 25 mg PO DAILY Transfuse PRBC [Transfuse Red Blood Cells] [COMM] Stat Oth 01/21/18 10:42 Ordered Medication Orders Acetaminophen (Tylenol) 650 mg PO Q6H PRN PRN Reason: Pain/Fever Last Admin: 01/20/18 08:27 Dose: 650 mg Admin: 01/19/18 19:01 Dose: 650 mg Hydrocodone Bitart/Acetaminophen ([place] 325-5 Mg) 1 - 2 tab PO Q4H PRN PRN Reason: Pain Last Admin: 01/21/18 15:20 Dose: 2 tab Admin: 01/21/18 07:33 Dose: 2 tab Admin: 01/21/18 00:05 Dose: 2 tab Albuterol (Proventil Neb Soln) 2.5 mg NEB Q2H PRN PRN Reason: Shortness Of Breath/wheezing Albuterol/Ipratropium (Duoneb 3.0-0.5 Mg/3 Ml) 3 ml NEB Q4H PRN PRN Reason: Shortness Of Breath/wheezing Artificial Tears (Isopto Tears 0.5% Ophth Soln) 0 ml EYEBOTH BID [facility] Last Admin: 01/21/18 20:36 Dose: 1 drop Admin: 01/21/18 08:11 Dose: 1 drop Admin: 01/20/18 20:47 Dose: 1 drop Admin: 01/20/18 09:37 Dose: 1 drop Admin: 01/19/18 20:00 Dose: 1 drop Bisacodyl (Dulcolax) 5 mg PO DAILY PRN PRN Reason: Constipation Clonidine HCl (Catapres) 0.1 mg PO Q8H [facility] Last Admin: 01/22/18 04:14 Dose: 0.1 mg Admin: 01/21/18 20:39 Dose: 0.1 mg Admin: 01/21/18 12:38 Dose: 0.1 mg Admin: 01/21/18 05:32 Dose: Not Given Admin: 01/20/18 20:15 Dose: Admin: 01/20/18 12:03 Dose: Admin: 01/20/18 03:03 Dose: 0.1 mg Cyclobenzaprine HCl (Flexeril) 10 mg PO TID PRN PRN Reason: Muscle Spasm Last Admin: 01/21/18 16:57 Dose: 10 mg Admin: 01/21/18 05:28 Dose: 10 mg Admin: 01/20/18 02:56 Dose: 10 mg Admin: 01/19/18 19:02 Dose: 10 mg Dextrose/Water (Dextrose 50% In Water) 50 ml IVPUSH ASDIRECTED PRN PRN Reason: Hypoglycemia Diphenhydramine HCl (Benadryl) 25 mg IVPUSH Q6H PRN PRN Reason: Pruritis Last Admin: 01/20/18 23:35 Dose: 25 mg Docusate Sodium (Colace) 100 mg PO BID PRN PRN Reason: Constipation Docusate Sodium (Colace) 100 mg PO BID [facility] Last Admin: 01/21/18 20:34 Dose: 100 mg Admin: 01/21/18 08:10 Dose: 100 mg Admin: 01/20/18 20:46 Dose: 100 mg Enoxaparin Sodium (Lovenox) 40 mg SUBCUT DAILY [facility] Last Admin: 01/21/18 08:11 Dose: 40 mg Famotidine (Pepcid) 20 mg PO DAILY [facility]I Furosemide (Lasix) 40 mg PO DAILY [facility] Last Admin: 01/21/18 08:10 Dose: 40 mg Hydralazine HCl (Apresoline) 20 mg IVPUSH Q6H PRN PRN Reason: Hypertension Last Admin: 01/20/18 08:57 Dose: 20 mg Admin: 01/19/18 17:28 Dose: 20 mg Hydromorphone HCl (Dilaudid) 0.5 mg IVPUSH Q4H PRN PRN Reason: Pain Last Admin: 01/21/18 18:07 Dose: 0.5 mg Admin: 01/21/18 13:22 Dose: 0.5 mg Admin: 01/19/18 21:15 Dose: 0.5 mg Insulin Aspart (Novolog) 0 unit SUBCUT QIDACANDBED [facility]; Protocol Last Admin: 01/22/18 06:15 Dose: Not Given Admin: 01/21/18 21:20 Dose: 1 unit Admin: 01/21/18 16:56 Dose: 1 unit Admin: 01/21/18 11:14 Dose: 1 unit Admin: 01/21/18 06:07 Dose: Not Given Admin: 01/20/18 22:07 Dose: 1 unit Admin: 01/20/18 17:58 Dose: Not Given Admin: 01/20/18 12:02 Dose: Not Given Admin: 01/20/18 07:33 Dose: Admin: 01/19/18 21:10 Dose: Admin: 01/19/18 17:54 Dose: Not Given Levothyroxine Sodium (Synthroid) 100 mcg PO DAILY@0600 [facility] Last Admin: 01/22/18 06:04 Dose: 100 mcg Admin: 01/21/18 05:28 Dose: 100 mcg Admin: 01/20/18 06:35 Dose: 100 mcg Admin: 01/19/18 14:19 Dose: 100 mcg Levothyroxine Sodium (Synthroid) 100 mcg PO DAILY [facility] Magnesium Hydroxide (Milk Of Magnesia) 30 ml PO Q12H PRN PRN Reason: Constipation Memantine (Namenda) 5 mg PO DAILY [facility] Last Admin: 01/21/18 08:10 Dose: 5 mg Admin: 01/20/18 09:37 Dose: 5 mg Admin: 01/19/18 14:19 Dose: 5 mg Metformin HCl (Glucophage) 500 mg PO BIDMEALS [facility] Metoprolol Succinate (Toprol Xl) 25 mg PO DAILY [facility] Metoprolol Tartrate (Lopressor) 5 mg IVPUSH Q4H PRN PRN Reason: Hypertension Last Admin: 01/21/18 09:45 Dose: 5 mg Admin: 01/19/18 18:03 Dose: 5 mg Naloxone HCl (Narcan) 0.1 mg IVPUSH Q5M PRN PRN Reason: Oversedation Ondansetron HCl (Zofran) 4 mg IVPUSH Q4H PRN PRN Reason: Nausea/Vomiting Last Admin: 01/20/18 23:35 Dose: 4 mg Admin: 01/20/18 16:53 Dose: 4 mg Admin: 01/19/18 21:15 Dose: 4 mg Admin: 01/19/18 13:10 Dose: 4 mg Imatinib Mesylate [ (Gleevec] 600 Mg) 0 each PO DAILY [facility] Last Admin: 01/21/18 08:12 Dose: 600 each Admin: 01/20/18 09:38 Dose: 600 each Loxapine 50 Mg 0 each PO BEDTIME [facility] Last Admin: 01/21/18 20:37 Dose: 50 each Admin: 01/20/18 20:46 Dose: 50 each Admin: 01/19/18 20:03 Dose: 50 each Loxapine 25 Mg 0 each PO DAILY@1800 [facility] Last Admin: 01/21/18 18:08 Dose: 1 each Admin: 01/20/18 18:03 Dose: 1 each Admin: 01/19/18 17:40 Dose: 25 each Polyethylene Glycol (Miralax) 17 gm PO DAILY PRN PRN Reason: Constipation Senna/Docusate Sodium (Senna Plus) 1 tab PO BID PRN PRN Reason: Constipation Simvastatin (Zocor) 10 mg PO BEDTIME [facility] Last Admin: 01/21/18 20:34 Dose: 10 mg Admin: 01/20/18 20:46 Dose: 10 mg Admin: 01/19/18 20:01 Dose: 10 mg Sodium Chloride (Saline Flush) 10 ml FLUSH ONETIME PRN PRN Reason: IV FLUSH Last Admin: 01/21/18 18:06 Dose: 10 ml Admin: 01/19/18 15:49 Dose: 10 ml Spironolactone (Aldactone) 25 mg PO DAILY [facility] Last Admin: 01/21/18 08:10 Dose: 25 mg Admin: 01/20/18 09:37 Dose: 25 mg Temazepam (Restoril) 7.5 mg PO BEDTIME [facility] Last Admin: 01/21/18 20:35 Dose: 7.5 mg Admin: 01/20/18 20:46 Dose: 7.5 mg Admin: 01/19/18 20:02 Dose: 7.5 mg Tramadol HCl (Ultram) 50 mg PO Q8H [facility] Last Admin: 01/22/18 02:55 Dose: 50 mg Admin: 01/21/18 20:37 Dose: 50 mg Admin: 01/21/18 11:02 Dose: 50 mg Admin: 01/21/18 04:20 Dose: 50 mg Admin: 01/20/18 18:03 Dose: 50 mg Admin: 01/20/18 10:33 Dose: 50 mg Admin: 01/20/18 02:56 Dose: 50 mg Admin: 01/19/18 18:04 Dose: 50 mg Admin: 01/19/18 11:17 Dose: 50 mg Trazodone HCl (Trazodone) 100 mg PO BEDTIME [facility] Last Admin: 01/21/18 20:35 Dose: 100 mg Admin: 01/20/18 20:46 Dose: 100 mg Admin: 01/19/18 20:01 Dose: 100 mg - Assessment Assessment (Free Text/Narrative):: POD#2 - IM nail placement for left femur fracture - Plan Plan (Free Text/Narrative):: 1. Lovenox, SCDs, TEDs. 2. Medical management per Hospitalist service. 3. WBAT LLE. P.T. and O.T. The pt's case was discussed with Dr. Lanza.
[2018-01-22] MEDS ORDERED: Levothyroxine 100 MCG Tab PO SCH (09:00)
[2018-01-22] MEDS: Acetaminophen/HYDROcodone 325-5 MG Tab PO PRN (09:18)
[2018-01-22] MEDS: Cyclobenzaprine 10 MG Tab PO PRN (09:20)
[2018-01-22] MEDS: Docusate Sodium 100 MG Cap PO SCH ×2 (09:34→20:36)
[2018-01-22] MEDS: Hypromellose 0.5% Ophth Soln 15 ML Bottle EYEBOTH SCH ×2 (09:34→20:37)
[2018-01-22] MEDS: Spironolactone 25 MG Tab PO SCH (09:35)
[2018-01-22] MEDS: Metoprolol Succinate 25 MG Tab.ER PO SCH (09:35)
[2018-01-22] MEDS: Famotidine 20 MG Tab PO SCH (09:35)
[2018-01-22] MEDS: Furosemide 40 MG Tab PO SCH (09:35)
[2018-01-22] MEDS: Memantine 10 MG Tab PO SCH (09:36)
[2018-01-22] MEDS: Enoxaparin 40 MG/0.4 ML Syringe SUBCUT SCH (09:36)
[2018-01-22] MEDS: IMATINIB MESYLATE 600 MG PO SCH (09:38)
--- NOTE | 2018-01-22 14:31 | PCM.PN ---
- General Info Date of Service: 01/22/18 Admission Dx/Problem (Free Text): Admission Diagnosis/Problem Admission Diagnosis/Problem Fall at home Subjective Update: In to see Francoise today. She is lying in bed. POD 2 s/p left femoral fracture repair. Overall she is doing quite well. She has no complaints. She has been sleeping well. Good appetite. Ambulating as tolerated. Pain is controlled. No Nausea or vomiting. Urinating. Incentive Spirometry. No concerns from nursing. Will be DCd to SNF for rehab once we are able to get placement. Functional Status: Reports: Pain Controlled, Tolerating Diet, Ambulating, Urinating - Review of Systems General: Reports: No Symptoms. Denies: Fever, Chills HEENT: Reports: No Symptoms Pulmonary: Reports: No Symptoms, Shortness of Breath (exertional), Wheezing. Denies: Cough, Sputum Cardiovascular: Reports: Dyspnea on Exertion, Edema (R leg, s/p fracture repair) . Denies: Chest Pain, Palpitations Gastrointestinal: Reports: No Symptoms. Denies: Abdominal Pain, Diarrhea, Nausea, Vomiting Genitourinary: Reports: No Symptoms. Denies: Dysuria, Frequency, Burning, Pain , Urgency Musculoskeletal: Reports: Joint Pain (s/p left fracture repair surgery) Skin: Reports: No Symptoms Neurological: Reports: No Symptoms Psychiatric: Reports: No Symptoms - Patient Data Vitals - Most Recent: Last Vital Signs Temp 98.4 F 01/22/18 11:46 Pulse 100 01/22/18 11:46 Resp 16 01/22/18 11:46 BP 145/52 H 01/22/18 11:46 Pulse Ox 95 01/22/18 11:46 Weight - Most Recent: 192 lb 6.4 oz I&O - Last 24 Hours: Intake & Output 01/21/18 01/22/18 01/22/18 22:59 06:59 14:59 Intake Total 1500 800 180 Output Total 250 200 750 Balance 1250 600 -570 Lab Results Last 24 Hours: Laboratory Results - last 24 hr 01/19/18 01/21/18 01/21/18 Range/Units 05:45 16:55 19:59 WBC (3.98-10.04) K/mm3 RBC (3.98-5.22) M/mm3 Hgb (11.2-15.7) gm/L Hct (34.1-44.9) % MCV (79.4-94.8) fl MCH (25.6-32.2) pg MCHC (32.2-35.5) g/dl RDW Std Deviation (36.4-46.3) fL Plt Count (182-369) K/mm3 MPV (9.4-12.3) fl Neut % (Auto) (34.0-71.1) % Lymph % (Auto) (19.3-51.7) % Pine % (Auto) (4.7-12.5) % Eos % (Auto) (0.7-5.8) Baso % (Auto) (0.1-1.2) % Neut # (Auto) (1.56-6.13) K/mm3 Lymph # (Auto) (1.18-3.74) K/mm3 Pine # (Auto) (0.24-0.36) K/mm3 Eos # (Auto) (0.04-0.36) K/mm3 Baso # (Auto) (0.01-0.08) K/mm3 Sodium (136-145) mEq/L Potassium (3.5-5.1) mEq/L Chloride (98-107) mEq/L Carbon Dioxide (21-32) mEq/L Anion Gap (5-15) BUN (7-18) mg/dL Creatinine (0.55-1.02) mg/dL Est Cr Clr Drug Dosing mL/min Estimated GFR (MDRD) (>60) mL/min BUN/Creatinine Ratio (14-18) Glucose (80-115) mg/dL POC Glucose 166 H 197 H (80-115) mg/dL Lactic Acid (0.4-2.0) mmol/L Calcium (8.5-10.1) mg/dL Magnesium (1.8-2.4) mg/dl Total Bilirubin (0.2-1.0) mg/dL AST (15-37) U/L ALT (14-59) U/L Alkaline Phosphatase (46-116) U/L C-Reactive Protein (<1.0) mg/dL NT-Pro-B Natriuret Pep (0-125) pg/mL Total Protein (6.4-8.2) g/dl Albumin (3.4-5.0) g/dl Globulin gm/dL Albumin/Globulin Ratio (1-2) Crossmatch See Detail 01/21/18 01/22/18 01/22/18 Range/Units 20:00 05:49 05:49 WBC 9.19 (3.98-10.04) K/mm3 RBC 3.25 L (3.98-5.22) M/mm3 Hgb 9.8 L 10.4 L (11.2-15.7) gm/L Hct 28.6 L 30.3 L (34.1-44.9) % MCV 93.2 (79.4-94.8) fl MCH 32.0 (25.6-32.2) pg MCHC 34.3 (32.2-35.5) g/dl RDW Std Deviation 51.2 H (36.4-46.3) fL Plt Count 135 L (182-369) K/mm3 MPV 8.8 L (9.4-12.3) fl Neut % (Auto) 67.5 (34.0-71.1) % Lymph % (Auto) 18.3 L (19.3-51.7) % Pine % (Auto) 11.6 (4.7-12.5) % Eos % (Auto) 2.0 (0.7-5.8) Baso % (Auto) 0.4 (0.1-1.2) % Neut # (Auto) 6.20 H (1.56-6.13) K/mm3 Lymph # (Auto) 1.68 (1.18-3.74) K/mm3 Pine # (Auto) 1.07 H (0.24-0.36) K/mm3 Eos # (Auto) 0.18 (0.04-0.36) K/mm3 Baso # (Auto) 0.04 (0.01-0.08) K/mm3 Sodium 130 L (136-145) mEq/L Potassium 3.9 (3.5-5.1) mEq/L Chloride 99 (98-107) mEq/L Carbon Dioxide 27 (21-32) mEq/L Anion Gap 7.9 (5-15) BUN 17 (7-18) mg/dL Creatinine 0.9 (0.55-1.02) mg/dL Est Cr Clr Drug Dosing 46.55 mL/min Estimated GFR (MDRD) > 60 (>60) mL/min BUN/Creatinine Ratio 18.9 H (14-18) Glucose 149 H (80-115) mg/dL POC Glucose (80-115) mg/dL Lactic Acid (0.4-2.0) mmol/L Calcium 8.1 L (8.5-10.1) mg/dL Magnesium 1.9 (1.8-2.4) mg/dl Total Bilirubin 0.9 (0.2-1.0) mg/dL AST 77 H (15-37) U/L ALT 29 (14-59) U/L Alkaline Phosphatase 70 (46-116) U/L C-Reactive Protein 4.8 H* (<1.0) mg/dL NT-Pro-B Natriuret Pep (0-125) pg/mL Total Protein 5.9 L (6.4-8.2) g/dl Albumin 2.8 L (3.4-5.0) g/dl Globulin 3.1 gm/dL Albumin/Globulin Ratio 0.9 L (1-2) Crossmatch 01/22/18 01/22/18 01/22/18 Range/Units 05:49 05:49 06:02 WBC (3.98-10.04) K/mm3 RBC (3.98-5.22) M/mm3 Hgb (11.2-15.7) gm/L Hct (34.1-44.9) % MCV (79.4-94.8) fl MCH (25.6-32.2) pg MCHC (32.2-35.5) g/dl RDW Std Deviation (36.4-46.3) fL Plt Count (182-369) K/mm3 MPV (9.4-12.3) fl Neut % (Auto) (34.0-71.1) % Lymph % (Auto) (19.3-51.7) % Pine % (Auto) (4.7-12.5) % Eos % (Auto) (0.7-5.8) Baso % (Auto) (0.1-1.2) % Neut # (Auto) (1.56-6.13) K/mm3 Lymph # (Auto) (1.18-3.74) K/mm3 Pine # (Auto) (0.24-0.36) K/mm3 Eos # (Auto) (0.04-0.36) K/mm3 Baso # (Auto) (0.01-0.08) K/mm3 Sodium (136-145) mEq/L Potassium (3.5-5.1) mEq/L Chloride (98-107) mEq/L Carbon Dioxide (21-32) mEq/L Anion Gap (5-15) BUN (7-18) mg/dL Creatinine (0.55-1.02) mg/dL Est Cr Clr Drug Dosing mL/min Estimated GFR (MDRD) (>60) mL/min BUN/Creatinine Ratio (14-18) Glucose (80-115) mg/dL POC Glucose 146 H (80-115) mg/dL Lactic Acid 0.9 (0.4-2.0) mmol/L Calcium (8.5-10.1) mg/dL Magnesium (1.8-2.4) mg/dl Total Bilirubin (0.2-1.0) mg/dL AST (15-37) U/L ALT (14-59) U/L Alkaline Phosphatase (46-116) U/L C-Reactive Protein (<1.0) mg/dL NT-Pro-B Natriuret Pep 2548 H (0-125) pg/mL Total Protein (6.4-8.2) g/dl Albumin (3.4-5.0) g/dl Globulin gm/dL Albumin/Globulin Ratio (1-2) Crossmatch 01/22/18 Range/Units 11:41 WBC (3.98-10.04) K/mm3 RBC (3.98-5.22) M/mm3 Hgb (11.2-15.7) gm/L Hct (34.1-44.9) % MCV (79.4-94.8) fl MCH (25.6-32.2) pg MCHC (32.2-35.5) g/dl RDW Std Deviation (36.4-46.3) fL Plt Count (182-369) K/mm3 MPV (9.4-12.3) fl Neut % (Auto) (34.0-71.1) % Lymph % (Auto) (19.3-51.7) % Pine % (Auto) (4.7-12.5) % Eos % (Auto) (0.7-5.8) Baso % (Auto) (0.1-1.2) % Neut # (Auto) (1.56-6.13) K/mm3 Lymph # (Auto) (1.18-3.74) K/mm3 Pine # (Auto) (0.24-0.36) K/mm3 Eos # (Auto) (0.04-0.36) K/mm3 Baso # (Auto) (0.01-0.08) K/mm3 Sodium (136-145) mEq/L Potassium (3.5-5.1) mEq/L Chloride (98-107) mEq/L Carbon Dioxide (21-32) mEq/L Anion Gap (5-15) BUN (7-18) mg/dL Creatinine (0.55-1.02) mg/dL Est Cr Clr Drug Dosing mL/min Estimated GFR (MDRD) (>60) mL/min BUN/Creatinine Ratio (14-18) Glucose (80-115) mg/dL POC Glucose 208 H (80-115) mg/dL Lactic Acid (0.4-2.0) mmol/L Calcium (8.5-10.1) mg/dL Magnesium (1.8-2.4) mg/dl Total Bilirubin (0.2-1.0) mg/dL AST (15-37) U/L ALT (14-59) U/L Alkaline Phosphatase (46-116) U/L C-Reactive Protein (<1.0) mg/dL NT-Pro-B Natriuret Pep (0-125) pg/mL Total Protein (6.4-8.2) g/dl Albumin (3.4-5.0) g/dl Globulin gm/dL Albumin/Globulin Ratio (1-2) Crossmatch Med Orders - Current: Current Medications Acetaminophen (Tylenol) 650 mg PO Q6H PRN PRN Reason: Pain/Fever Last Admin: 01/20/18 08:27 Dose: 650 mg Hydrocodone Bitart/Acetaminophen ([place] 325-5 Mg) 1 - 2 tab PO Q4H PRN PRN Reason: Pain Last Admin: 01/22/18 09:18 Dose: 2 tab Albuterol (Proventil Neb Soln) 2.5 mg NEB Q2H PRN PRN Reason: Shortness Of Breath/wheezing Albuterol/Ipratropium (Duoneb 3.0-0.5 Mg/3 Ml) 3 ml NEB Q4H PRN PRN Reason: Shortness Of Breath/wheezing Artificial Tears (Isopto Tears 0.5% Ophth Soln) 0 ml EYEBOTH BID [facility] Last Admin: 01/22/18 09:34 Dose: 1 drop Bisacodyl (Dulcolax) 5 mg PO DAILY PRN PRN Reason: Constipation Last Admin: 01/22/18 09:35 Dose: 5 mg Clonidine HCl (Catapres) 0.3 mg PO BID [facility] Last Admin: 01/22/18 09:34 Dose: 0.3 mg Cyclobenzaprine HCl (Flexeril) 10 mg PO TID PRN PRN Reason: Muscle Spasm Last Admin: 01/22/18 09:20 Dose: 10 mg Dextrose/Water (Dextrose 50% In Water) 50 ml IVPUSH ASDIRECTED PRN PRN Reason: Hypoglycemia Diphenhydramine HCl (Benadryl) 25 mg IVPUSH Q6H PRN PRN Reason: Pruritis Last Admin: 01/20/18 23:35 Dose: 25 mg Docusate Sodium (Colace) 100 mg PO BID PRN PRN Reason: Constipation Docusate Sodium (Colace) 100 mg PO BID [facility] Last Admin: 01/22/18 09:34 Dose: 100 mg Enoxaparin Sodium (Lovenox) 40 mg SUBCUT DAILY [facility] Last Admin: 01/22/18 09:36 Dose: 40 mg Famotidine (Pepcid) 20 mg PO DAILY [facility] Last Admin: 01/22/18 09:35 Dose: 20 mg Furosemide (Lasix) 40 mg PO DAILY [facility] Last Admin: 01/22/18 09:35 Dose: 40 mg Hydralazine HCl (Apresoline) 20 mg IVPUSH Q6H PRN PRN Reason: Hypertension Last Admin: 01/20/18 08:57 Dose: 20 mg Hydromorphone HCl (Dilaudid) 0.5 mg IVPUSH Q4H PRN PRN Reason: Pain Last Admin: 01/21/18 18:07 Dose: 0.5 mg Insulin Aspart (Novolog) 0 unit SUBCUT QIDACANDBED [facility]; Protocol Last Admin: 01/22/18 11:44 Dose: 2 unit Levothyroxine Sodium (Synthroid) 100 mcg PO DAILY@0600 [facility] Last Admin: 01/22/18 06:04 Dose: 100 mcg Losartan Potassium (Cozaar) 100 mg PO BEDTIME [facility] Magnesium Hydroxide (Milk Of Magnesia) 30 ml PO Q12H PRN PRN Reason: Constipation Memantine (Namenda) 5 mg PO DAILY [facility] Last Admin: 01/22/18 09:36 Dose: 5 mg Metformin HCl (Glucophage) 500 mg PO BIDMEALS [facility] Metoprolol Succinate (Toprol Xl) 25 mg PO DAILY [facility] Last Admin: 01/22/18 09:35 Dose: 25 mg Metoprolol Tartrate (Lopressor) 5 mg IVPUSH Q4H PRN PRN Reason: Hypertension Last Admin: 01/21/18 09:45 Dose: 5 mg Naloxone HCl (Narcan) 0.1 mg IVPUSH Q5M PRN PRN Reason: Oversedation Ondansetron HCl (Zofran) 4 mg IVPUSH Q4H PRN PRN Reason: Nausea/Vomiting Last Admin: 01/20/18 23:35 Dose: 4 mg Imatinib Mesylate [ (Gleevec] 600 Mg) 0 each PO DAILY [facility] Last Admin: 01/22/18 09:38 Dose: 600 each Loxapine 50 Mg 0 each PO BEDTIME [facility] Last Admin: 01/21/18 20:37 Dose: 50 each Loxapine 25 Mg 0 each PO DAILY@1800 [facility] Last Admin: 01/21/18 18:08 Dose: 1 each Polyethylene Glycol (Miralax) 17 gm PO DAILY PRN PRN Reason: Constipation Senna/Docusate Sodium (Senna Plus) 1 tab PO BID PRN PRN Reason: Constipation Simvastatin (Zocor) 10 mg PO BEDTIME [facility] Last Admin: 01/21/18 20:34 Dose: 10 mg Sodium Chloride (Saline Flush) 10 ml FLUSH ONETIME PRN PRN Reason: IV FLUSH Last Admin: 01/21/18 18:06 Dose: 10 ml Spironolactone (Aldactone) 25 mg PO DAILY [facility] Last Admin: 01/22/18 09:35 Dose: 25 mg Temazepam (Restoril) 7.5 mg PO BEDTIME [facility] Last Admin: 01/21/18 20:35 Dose: 7.5 mg Tramadol HCl (Ultram) 50 mg PO Q8H [facility] Last Admin: 01/22/18 11:43 Dose: 50 mg Trazodone HCl (Trazodone) 100 mg PO BEDTIME [facility] Last Admin: 01/21/18 20:35 Dose: 100 mg Discontinued Medications Albuterol (Proventil Neb Soln) 2.5 mg NEB ONETIME ONE Stop: 01/20/18 13:58 Last Admin: 01/20/18 19:13 Dose: Not Given Artificial Tears (Isopto Tears 0.5% Ophth Soln) 0 ml EYEBOTH BID [facility] Last Admin: 01/19/18 15:00 Dose: Not Given Artificial Tears (Isopto Tears 0.5% Ophth Soln) 0 ml EYEBOTH BID [facility] Last Admin: 01/19/18 14:20 Dose: 1 drop Bupivacaine HCl (Sensorcaine-Mpf 0.75%) Confirm Administered Dose 30 ml .ROUTE .STK-MED ONE Stop: 01/20/18 11:45 Bupivacaine HCl (Marcaine 0.25%) Confirm Administered Dose 30 ml .ROUTE .STK- MED ONE Stop: 01/20/18 12:15 Last Admin: 01/20/18 13:48 Dose: 30 ml Cefazolin Sodium (Ancef) Confirm Administered Dose 2 gm .ROUTE .STK-MED ONE Stop: 01/20/18 11:46 Clonidine HCl (Catapres) 0.3 mg PO BID [facility] Clonidine HCl (Catapres) 0.1 mg PO ONETIME ONE Stop: 01/19/18 19:38 Last Admin: 01/19/18 19:59 Dose: 0.1 mg Clonidine HCl (Catapres) 0.1 mg PO Q8H [facility] Last Admin: 01/22/18 04:14 Dose: 0.1 mg Dextrose (Glutose 15) 15 gm PO ASDIRECTED PRN PRN Reason: LOW BS Famotidine (Pepcid) 20 mg PO BID [facility] Last Admin: 01/19/18 13:10 Dose: 20 mg Famotidine (Pepcid) 20 mg PO Q12H [facility] Last Admin: 01/20/18 17:13 Dose: Not Given Famotidine (Pepcid) 20 mg PO BID@0600,1800 [facility] Last Admin: 01/21/18 05:28 Dose: 20 mg Fentanyl (Sublimaze) Confirm Administered Dose 100 mcg .ROUTE .STK-MED ONE Stop: 01/20/18 11:46 Fentanyl (Sublimaze) 50 mcg IVPUSH Q5M PRN PRN Reason: Pain Furosemide (Lasix) 40 mg PO TID [facility] Last Admin: 01/19/18 14:19 Dose: 40 mg Furosemide (Lasix) 40 mg PO TID [facility] Furosemide (Lasix) 40 mg PO DAILY [facility] Furosemide (Lasix) 40 mg IVPUSH NOW ONE Stop: 01/20/18 05:01 Last Admin: 01/20/18 06:00 Dose: 40 mg Furosemide (Lasix) 40 mg IVPUSH ONETIME ONE Stop: 01/21/18 12:01 Last Admin: 01/21/18 13:27 Dose: 40 mg Hydromorphone HCl (Dilaudid) 1 mg IVPUSH ONETIME ONE Stop: 01/19/18 05:25 Last Admin: 01/19/18 05:48 Dose: 1 mg Hydromorphone HCl (Dilaudid) 0.5 mg IVPUSH ONETIME ONE Stop: 01/19/18 07:33 Last Admin: 01/19/18 07:53 Dose: 0.5 mg Hydromorphone HCl (Dilaudid) 0.5 mg IM ONETIME ONE Stop: 01/21/18 13:18 Last Admin: 01/21/18 13:15 Dose: Not Given Sodium Chloride (Normal Saline) 1,000 mls @ 250 mls/hr IV ASDIRECTED [facility] Last Admin: 01/19/18 05:47 Dose: 250 mls/hr Lactated Ringer's (Ringers, Lactated) 1,000 mls @ 125 mls/hr IV ASDIRECTED [facility] Last Infusion: 01/20/18 12:30 Dose: 0 mls/hr Vancomycin HCl 1 gm/ Sodium (Chloride) 250 mls @ 250 mls/hr IV ONETIME ONE Stop: 01/20/18 14:14 Last Admin: 01/20/18 19:13 Dose: Not Given Sodium Chloride (Normal Saline) Confirm Administered Dose 100 mls @ as directed .ROUTE .STK-MED ONE Stop: 01/20/18 14:00 Lactated Ringer's (Ringers, Lactated) Confirm Administered Dose 1,000 mls @ as directed .ROUTE .STK-MED ONE Stop: 01/20/18 14:49 Lactated Ringer's (Ringers, Lactated) Confirm Administered Dose 1,000 mls @ as directed .ROUTE .STK-MED ONE Stop: 01/20/18 14:49 Cefazolin Sodium/Dextrose 2 gm (/ Premix) 50 mls @ 100 mls/hr IV Q8H [facility] Stop: 01/21/18 12:29 Last Admin: 01/21/18 11:04 Dose: 100 mls/hr Sodium Chloride (Normal Saline) 500 mls @ 75 mls/hr IV ONETIME ONE Stop: 01/21/18 17:39 Last Admin: 01/21/18 11:44 Dose: 75 mls/hr Iopamidol (Isovue-300 (61%)) 100 ml IVPUSH ONETIME ONE Stop: 01/19/18 15:46 Last Admin: 01/19/18 15:49 Dose: 100 ml Ketamine HCl (Ketalar) Confirm Administered Dose 500 mg .ROUTE .STK-MED ONE Stop: 01/20/18 11:47 Ketorolac Tromethamine (Toradol) 15 mg IVPUSH Q6H [facility] Stop: 01/20/18 17:01 Last Admin: 01/20/18 18:02 Dose: 15 mg Levothyroxine Sodium (Synthroid) 100 mcg PO DAILY [facility] Last Admin: 01/22/18 09:41 Dose: Not Given Lidocaine HCl (Xylocaine-Mpf 1%) Confirm Administered Dose 5 ml .ROUTE .STK-MED ONE Stop: 01/20/18 12:33 Losartan Potassium (Cozaar) 100 mg PO DAILY [facility] Last Admin: 01/19/18 14:19 Dose: 100 mg Metoprolol Succinate (Toprol Xl) 25 mg PO DAILY [facility] Last Admin: 01/19/18 14:14 Dose: 25 mg Midazolam HCl (Versed 1 Mg/Ml) Confirm Administered Dose 2 mg .ROUTE .STK-MED ONE Stop: 01/20/18 11:46 Midazolam HCl (Versed 1 Mg/Ml) Confirm Administered Dose 2 mg .ROUTE .STK-MED ONE Stop: 01/20/18 13:28 Morphine Sulfate (Duramorph Pf) Confirm Administered Dose 1 mg .ROUTE .STK-MED ONE Stop: 01/20/18 12:28 Naloxone HCl (Narcan) 0.5 mg IVPUSH ONETIME ONE Stop: 01/19/18 17:04 Last Admin: 01/19/18 17:28 Dose: 0.5 mg Non-Formulary Medication (Acetaminophen) 650 mg PO Q8H PRN PRN Reason: Pain Ondansetron HCl (Zofran) 4 mg IVPUSH ONETIME ONE Stop: 01/19/18 05:25 Last Admin: 01/19/18 05:47 Dose: 4 mg Ondansetron HCl (Zofran) 4 mg IVPUSH ONETIME PRN PRN Reason: Nausea/Vomiting Ondansetron HCl (Zofran) Confirm Administered Dose 4 mg .ROUTE .STK-MED ONE Stop: 01/20/18 14:49 Pantoprazole Sodium (Protonix Iv) 40 mg IVPUSH DAILY [facility] Pantoprazole Sodium (Protonix Iv) 40 mg IVPUSH BID [facility] Last Admin: 01/20/18 09:37 Dose: 40 mg Loxapine 25 Mg 0 each PO DAILY@1400 [facility] Last Admin: 01/19/18 15:00 Dose: Not Given Phenylephrine HCl (Rodney-Synephrine) Confirm Administered Dose 10 mg .ROUTE .STK- MED ONE Stop: 01/20/18 14:00 Phenylephrine HCl (Phenylephrine In Ns 100 Mcg/Ml) Confirm Administered Dose 1 mg .ROUTE .STK-MED ONE Stop: 01/20/18 14:01 Propofol (Diprivan 20 Ml) Confirm Administered Dose 600 mg .ROUTE .STK-MED ONE Stop: 01/20/18 11:46 Temazepam (Restoril) 30 mg PO BEDTIME [facility] - Exam Quality Assessment: DVT Prophylaxis General: Alert, Oriented HEENT: Pupils Equal, Pupils Reactive, EOMI, Mucous Membr. Moist/[place] Neck: Supple Lungs: Clear to Auscultation, Normal Respiratory Effort, Decreased Breath Sounds. No: Rales, Rhonchi, Wheezing Cardiovascular: Regular Rate, Regular Rhythm GI/Abdominal Exam: Normal Bowel Sounds, Soft, Non-Tender, No Organomegaly, No Distention, No Abnormal Bruit, No Mass, Pelvis Stable (Female) Exam: Deferred Back Exam: Normal Inspection, Full Range of Motion Extremities: Normal Inspection, Normal Capillary Refill, Pedal Edema (1+), Limited Range of Motion (s/p right hip repair surgery) Peripheral Pulses: 1+: Posterior Tibial (L), Posterior Tibial (R), Dorsalis Pedis (L), Dorsalis Pedis (R) Skin: Warm, Dry, Intact Wound/Incisions: Healing Well, Dressing Dry and Intact, No Drainage Neurological: No New Focal Deficit Psy/Mental Status: Alert, Normal Affect, Normal Mood - Problem List & Annotations (1) Fracture of proximal end of femur SNOMED Code(s): 328412091 Code(s): S72.009A - FRACTURE OF UNSP PART OF NECK OF UNSP FEMUR, INIT Status: Acute Priority: High Current Visit: Yes Qualifiers: Encounter type: initial encounter Fracture type: closed Laterality: left Qualified Code(s): S72.002A - Fracture of unspecified part of neck of left femur, initial encounter for closed fracture (2) Anemia SNOMED Code(s): 110964876 Code(s): D64.9 - ANEMIA, UNSPECIFIED Status: Chronic Priority: Medium Current Visit: Yes Qualifiers: 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 type: pancytopenia, antineoplastic chemotherapy-induced Qualified Code(s): D61.810 - Antineoplastic chemotherapy induced pancytopenia; T45.1X5A - Adverse effect of antineoplastic and immunosuppressive drugs, initial encounter (3) Congestive heart failure SNOMED Code(s): 75177756 Code(s): I50.9 - HEART FAILURE, UNSPECIFIED Status: Chronic Priority: Medium Current Visit: Yes Qualifiers: Heart failure type: diastolic Heart failure chronicity: chronic Qualified Code(s): I50.32 - Chronic diastolic (congestive) heart failure (4) Hyponatremia SNOMED Code(s): 20474747 Code(s): E87.1 - HYPO-OSMOLALITY AND HYPONATREMIA Status: Chronic Priority: Medium Current Visit: Yes (5) Renal insufficiency SNOMED Code(s): 572794367, 678592771 Code(s): N28.9 - DISORDER OF KIDNEY AND URETER, UNSPECIFIED Status: Chronic Priority: High Current Visit: Yes (6) Traumatic brain injury SNOMED Code(s): 248351856 Code(s): S06.9X9A - UNSP INTRACRANIAL INJURY W LOC OF UNSP DURATION, INIT Status: Chronic Priority: Low Current Visit: Yes Qualifiers: Encounter type: subsequent encounter Loss of consciousness presence/ duration: with LOC of unspecified duration Qualified Code(s): S06.9X9D - Unspecified intracranial injury with loss of consciousness of unspecified duration, subsequent encounter (7) Type 2 diabetes mellitus SNOMED Code(s): 73338045 Code(s): E11.9 - TYPE 2 DIABETES MELLITUS WITHOUT COMPLICATIONS Status: Chronic Priority: Medium Current Visit: Yes Qualifiers: Diabetes mellitus long-term insulin use: 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 Diabetes mellitus complication status: with unspecified complications Qualified Code(s): E11.8 - Type 2 diabetes mellitus with unspecified complications - Problem List Review Problem List Initiated/Reviewed/Updated: Yes - My Orders Last 24 Hours: My Active Orders 01/23/18 05:11 C-REACTIVE PROTEIN [CHEM] AM CBC WITH AUTO DIFF [HEME] AM COMPREHENSIVE METABOLIC PN,CMP [CHEM] AM LACTIC ACID [CHEM] AM MAGNESIUM [CHEM] AM 01/23/18 08:00 PRO B-TYPE NATRIUR PEPT,BNPPRO [CHEM] DAILY 01/24/18 05:11 C-REACTIVE PROTEIN [CHEM] AM CBC WITH AUTO DIFF [HEME] AM COMPREHENSIVE METABOLIC PN,CMP [CHEM] AM LACTIC ACID [CHEM] AM MAGNESIUM [CHEM] AM 01/24/18 08:00 PRO B-TYPE NATRIUR PEPT,BNPPRO [CHEM] DAILY - Plan Plan:: I/P: Acute: Fracture of proximal end of femur, s/p fall ; POD 2: IM paul placement for left femoral shaft fracture -Pain controlled -Stable condition -Pain medication PRN -Bedrest, PT/OT after surgery -Continue supportive care Hyponatremia -Na -Monitor Hyperemesis--resolved -Risk factor: chemotherapy -Zofran Q4H -IV lactated ringers Chronic: Anemia, Thrombocytopenia -RBC 3.25, Hgb 10.4, HCT 30.3, RDW 51.2, Plt 135 -Monitor -Blood Type and Screen ordered -Replenish with PRBCs as needed CKD stage III -eGFR 47 -Creatinine 1.7 -NS IV started in ED--> D/C and start LR IV -Defer to PCP for f/u Diabetes Type II -Blood Glucose Checks QID -Continue at home Metformin 500mg -Sliding scale Insulin -A1C ordered -ADA diet after surgery -Defer to PCP for f/u CHF -BNP -Continue at home Lasix 40mg TID -Monitor Traumatic Brain Injury Leukemia --> Continue at home Gleevec 600mg here HTN--home meds restarted Plan: Transfered to Med-Surg telemetry unit today She remains stable Continue at home meds as above Consult with Dr. Lanza for surgery Other orders as indicated above CM/SW for discharge planning Routine AM labs Continue PT/OT DVT Prophylaxis: SCD Most likely D/C tomorrow pending SNF placement for rehabilitation Code Status: Full code (CPR, Defib, Intubation)- However "No life sustaining treatment on machines" -per Sister Beti, Power of Sales Facilitator PCP: Dr. Cespedes
[2018-01-22] MEDS: LOXAPINE 25 MG PO SCH (18:13)
[2018-01-22] MEDS: Magnesium Hydroxide 400 MG/5 ML Susp 30 ML Cup PO PRN (18:14)
[2018-01-22] MEDS: traZODone 50 MG Tab PO SCH (20:35)
[2018-01-22] MEDS: Temazepam 7.5 MG Cap PO SCH (20:35)
[2018-01-22] MEDS: Simvastatin 10 MG Tab PO SCH (20:36)
[2018-01-22] MEDS: Losartan 100 MG Tab PO SCH (20:36)
--- NOTE | 2018-01-22 22:13 | PCM.OPNOTE ---
- General Post-Op/Procedure Note Date of Surgery/Procedure: 01/20/18 Operative Procedure(s): intramedullary nailing of left subtrochanteric femur fracture Pre Op Diagnosis: left subtrochanteric femur fracture Post-Op Diagnosis: Same Anesthesia Technique: Local, MAC, Spinal Primary Surgeon: Albin Lanza Anesthesia Provider: Barbie Ennis Informatics Spec: Teresa Garcia EBL in mLs: 250 Complications: None Condition: Good Free Text/Narrative:: Intake & Output 01/22/18 01/22/18 01/22/18 06:59 14:59 22:59 Intake Total 800 180 900 Output Total 200 750 Balance 600 -570 900
[2018-01-22] MEDS: HYDROmorphone 0.5 MG/0.5 ML SYRINGE IVPUSH PRN (22:28)
[2018-01-23] MEDS: traMADol 50 MG Tab PO SCH ×3 (02:14→18:36)
[2018-01-23] MEDS: hydrALAZINE 20 MG/ML SDV IVPUSH PRN (02:14)
[2018-01-23] MEDS: Levothyroxine 100 MCG Tab PO SCH (05:41)
[2018-01-23] MEDS ORDERED: Bisacodyl 10 MG Supp RECTAL ONE (06:11)
[2018-01-23] MEDS: Insulin Aspart 100 Units/ML 3 ML Pen SUBCUT SCH ×4 (06:31→23:22)
--- NOTE | 2018-01-23 07:47 | OR ---
DATE OF OPERATION: 01/20/2018 SURGEON: Albin Lanza MD OPERATION PERFORMED: Intramedullary nailing of left subtrochanteric femur fracture. PREOPERATIVE DIAGNOSIS: Left subtrochanteric femur fracture. POSTOPERATIVE DIAGNOSIS: Left subtrochanteric femur fracture. ANESTHESIA: Local MAC with spinal. ANESTHESIA PROVIDER: Vani Frias. [employer] SUPERVISOR: Teresa Garcia PA-C. ESTIMATED BLOOD LOSS: 250 mL. COMPLICATIONS: None. CONDITION: Stable. DESCRIPTION OF PROCEDURE: The patient was identified in the preop holding area. Proper site was marked and identified by the surgeon. The patient was taken back to the operating theater, where after adequate anesthesia, the patient was placed supine on a [place] traction table. The right lower extremity was placed in a traction boot and just a small amount of gross traction was applied. Left lower extremity was placed in a traction boot and the post was placed, and left lower extremity then had gross traction applied. C-arm fluoroscopy was then utilized to make sure that it was out to length and reducible. The patient's proximal portion was in a flexed adducted and internally rotated position still, but it was reducible on C-arm fluoroscopy before sterilely prepping and draping. At this time, the left hip was then sterilely prepped and draped in the usual sterile fashion. OR time- out was performed. The patient received 2 g IV Ancef. At this time, with utilization of C-arm fluoroscopy, the incision proximal to the greater trochanter was undertaken and the guide pin was then placed to the tip of the greater trochanter. Please note that there was significant difficulty throughout the case in trying to get the angle for this secondary to the patient's significant girth and soft tissue in this region which made passage of the nail and the guide pin as well as the ball-tipped guidewire very difficult, and the patient had a shorter femur as well which made it very difficult, not much room to work, but the patient's significant body habitus made it very difficult throughout the case to try to pass all these at the angles needed. Once this guide pin was then placed, the opening reamer was then used. Ball- tipped guidewire was then passed with usage of a spoon. Secondary to the patient's body habitus, it could not otherwise be passed, so the guide spoon was placed down the canal and the ball-tipped guidewire was then placed through this. Also, there was significant difficulty secondary to muscular forces and the patient's significant body habitus with getting it completely reduced. A small stab incision was made anterior and ball spike pusher was then placed on the proximal fragment and was pushed posterior to align the fracture fragments along with lifting up on the distal fragment so that the ball-tipped guidewire could make passage through the canal. Ball-tipped guidewire was then able to get past the fracture site and all the way to the physeal scar at the knee. Starting with 8 reamer, I was able to ream up to a 10-/2 for a 9 mm nail. It was found to have very good cortical chatter. At this time, a 340 mm x 9 mm [place] greater trochanteric nail was then opened and it was then placed. At this time, there was found to be adequate reduction on both AP and lateral views. Two proximal static locking screws were then placed. Next, C-arm fluoroscopy was utilized to take AP of the contralateral knee as well as the contralateral hip and then rotation was set of left hip using both cortices and the contralateral x-rays. Perfect circles were then done for 2 static locking screws in the distal fragment at this time as well. There was found to be adequate reduction on both AP and lateral views. Adequate saline was irrigated through all incisions. 2-0 Vicryl was used subcutaneously and arden were used for the skin. The patient had sterile soft dressing applied and was seen to the PACU in stable condition. [place] /[id number]
[2018-01-23] MEDS: Hypromellose 0.5% Ophth Soln 15 ML Bottle EYEBOTH SCH ×2 (09:19→20:07)
[2018-01-23] MEDS: cloNIDine 0.1 MG Tab PO SCH ×2 (09:20→20:06)
[2018-01-23] MEDS: Famotidine 20 MG Tab PO SCH (09:20)
[2018-01-23] MEDS: Metoprolol Succinate 25 MG Tab.ER PO SCH (09:23)
[2018-01-23] MEDS: Spironolactone 25 MG Tab PO SCH (09:23)
[2018-01-23] MEDS: Memantine 10 MG Tab PO SCH (09:23)
[2018-01-23] MEDS: Furosemide 40 MG Tab PO SCH (09:23)
[2018-01-23] MEDS: Docusate Sodium 100 MG Cap PO SCH ×2 (09:23→20:07)
[2018-01-23] MEDS: Enoxaparin 40 MG/0.4 ML Syringe SUBCUT SCH (09:24)
[2018-01-23] MEDS: IMATINIB MESYLATE 600 MG PO SCH (09:26)
[2018-01-23] MEDS: Acetaminophen/HYDROcodone 325-5 MG Tab PO PRN (09:43)
[2018-01-23] MEDS: Cyclobenzaprine 10 MG Tab PO PRN (09:43)
--- NOTE | 2018-01-23 12:42 | PCM.SURGPN ---
- General Info Date of Service: 01/23/18 POD#: 3 Functional Status: Reports: Pain Controlled, Tolerating Diet, Urinating, Incentive Spirometry, Other (The pt denies pain at rest. States pain noted initially with therapy and "gets better as I exercise".) - Patient Data Vitals - Most Recent: Last Vital Signs Temp 97.7 F 01/23/18 12:00 Pulse 83 01/23/18 12:00 Resp 14 01/23/18 12:00 BP 111/39 L 01/23/18 12:00 Pulse Ox 98 01/23/18 12:00 Weight - Most Recent: 192 lb I&O - Last 24 Hours: Intake & Output 01/22/18 01/23/18 01/23/18 22:59 06:59 14:59 Intake Total 900 200 Output Total 500 Balance 900 -300 Lab Results Last 24 Hrs: Laboratory Results - last 24 hr 01/22/18 01/22/18 01/22/18 Range/Units 15:52 18:02 20:33 WBC (3.98-10.04) K/mm3 RBC (3.98-5.22) M/mm3 Hgb 9.6 L (11.2-15.7) gm/L Hct 28.2 L (34.1-44.9) % MCV (79.4-94.8) fl MCH (25.6-32.2) pg MCHC (32.2-35.5) g/dl RDW Std Deviation (36.4-46.3) fL Plt Count (182-369) K/mm3 MPV (9.4-12.3) fl Neut % (Auto) (34.0-71.1) % Lymph % (Auto) (19.3-51.7) % [place] % (Auto) (4.7-12.5) % Eos % (Auto) (0.7-5.8) Baso % (Auto) (0.1-1.2) % Neut # (Auto) (1.56-6.13) K/mm3 Lymph # (Auto) (1.18-3.74) K/mm3 [place] # (Auto) (0.24-0.36) K/mm3 Eos # (Auto) (0.04-0.36) K/mm3 Baso # (Auto) (0.01-0.08) K/mm3 Sodium (136-145) mEq/L Potassium (3.5-5.1) mEq/L Chloride (98-107) mEq/L Carbon Dioxide (21-32) mEq/L Anion Gap (5-15) BUN (7-18) mg/dL Creatinine (0.55-1.02) mg/dL Est Cr Clr Drug Dosing mL/min Estimated GFR (MDRD) (>60) mL/min BUN/Creatinine Ratio (14-18) Glucose (80-115) mg/dL POC Glucose 143 H 197 H (80-115) mg/dL Lactic Acid (0.4-2.0) mmol/L Calcium (8.5-10.1) mg/dL Magnesium (1.8-2.4) mg/dl Total Bilirubin (0.2-1.0) mg/dL AST (15-37) U/L ALT (14-59) U/L Alkaline Phosphatase (46-116) U/L C-Reactive Protein (<1.0) mg/dL NT-Pro-B Natriuret Pep (0-125) pg/mL Total Protein (6.4-8.2) g/dl Albumin (3.4-5.0) g/dl Globulin gm/dL Albumin/Globulin Ratio (1-2) 01/23/18 01/23/18 01/23/18 Range/Units 05:45 05:48 05:48 WBC 9.38 (3.98-10.04) K/mm3 RBC 3.07 L (3.98-5.22) M/mm3 Hgb 9.6 L (11.2-15.7) gm/L Hct 29.1 L (34.1-44.9) % MCV 94.8 (79.4-94.8) fl MCH 31.3 (25.6-32.2) pg MCHC 33.0 (32.2-35.5) g/dl RDW Std Deviation 51.3 H (36.4-46.3) fL Plt Count 168 L (182-369) K/mm3 MPV 9.2 L (9.4-12.3) fl Neut % (Auto) 63.8 (34.0-71.1) % Lymph % (Auto) 20.8 (19.3-51.7) % [place] % (Auto) 11.4 (4.7-12.5) % Eos % (Auto) 3.4 (0.7-5.8) Baso % (Auto) 0.4 (0.1-1.2) % Neut # (Auto) 5.98 (1.56-6.13) K/mm3 Lymph # (Auto) 1.95 (1.18-3.74) K/mm3 [place] # (Auto) 1.07 H (0.24-0.36) K/mm3 Eos # (Auto) 0.32 (0.04-0.36) K/mm3 Baso # (Auto) 0.04 (0.01-0.08) K/mm3 Sodium 132 L (136-145) mEq/L Potassium 4.0 (3.5-5.1) mEq/L Chloride 100 (98-107) mEq/L Carbon Dioxide 27 (21-32) mEq/L Anion Gap 9.0 (5-15) BUN 27 H (7-18) mg/dL Creatinine 1.1 H (0.55-1.02) mg/dL Est Cr Clr Drug Dosing 38.09 mL/min Estimated GFR (MDRD) 50 (>60) mL/min BUN/Creatinine Ratio 24.5 H (14-18) Glucose 144 H (80-115) mg/dL POC Glucose (80-115) mg/dL Lactic Acid (0.4-2.0) mmol/L Calcium 8.1 L (8.5-10.1) mg/dL Magnesium 2.3 (1.8-2.4) mg/dl Total Bilirubin 1.0 (0.2-1.0) mg/dL AST 77 H (15-37) U/L ALT 30 (14-59) U/L Alkaline Phosphatase 74 (46-116) U/L C-Reactive Protein 4.9 H* (<1.0) mg/dL NT-Pro-B Natriuret Pep 2782 H (0-125) pg/mL Total Protein 5.7 L (6.4-8.2) g/dl Albumin 2.7 L (3.4-5.0) g/dl Globulin 3.0 gm/dL Albumin/Globulin Ratio 0.9 L (1-2) 0401/23/18 01/23/18 Range/Units 05:48 06:31 11:55 WBC (3.98-10.04) K/mm3 RBC (3.98-5.22) M/mm3 Hgb (11.2-15.7) gm/L Hct (34.1-44.9) % MCV (79.4-94.8) fl MCH (25.6-32.2) pg MCHC (32.2-35.5) g/dl RDW Std Deviation (36.4-46.3) fL Plt Count (182-369) K/mm3 MPV (9.4-12.3) fl Neut % (Auto) (34.0-71.1) % Lymph % (Auto) (19.3-51.7) % [place] % (Auto) (4.7-12.5) % Eos % (Auto) (0.7-5.8) Baso % (Auto) (0.1-1.2) % Neut # (Auto) (1.56-6.13) K/mm3 Lymph # (Auto) (1.18-3.74) K/mm3 [place] # (Auto) (0.24-0.36) K/mm3 Eos # (Auto) (0.04-0.36) K/mm3 Baso # (Auto) (0.01-0.08) K/mm3 Sodium (136-145) mEq/L Potassium (3.5-5.1) mEq/L Chloride (98-107) mEq/L Carbon Dioxide (21-32) mEq/L Anion Gap (5-15) BUN (7-18) mg/dL Creatinine (0.55-1.02) mg/dL Est Cr Clr Drug Dosing mL/min Estimated GFR (MDRD) (>60) mL/min BUN/Creatinine Ratio (14-18) Glucose (80-115) mg/dL POC Glucose 150 H 196 H (80-115) mg/dL Lactic Acid 1.1 (0.4-2.0) mmol/L Calcium (8.5-10.1) mg/dL Magnesium (1.8-2.4) mg/dl Total Bilirubin (0.2-1.0) mg/dL AST (15-37) U/L ALT (14-59) U/L Alkaline Phosphatase (46-116) U/L C-Reactive Protein (<1.0) mg/dL NT-Pro-B Natriuret Pep (0-125) pg/mL Total Protein (6.4-8.2) g/dl Albumin (3.4-5.0) g/dl Globulin gm/dL Albumin/Globulin Ratio (1-2) Med Orders - Current: Current Medications Acetaminophen (Tylenol) 650 mg PO Q6H PRN PRN Reason: Pain/Fever Last Admin: 01/20/18 08:27 Dose: 650 mg Hydrocodone Bitart/Acetaminophen ([place] 325-5 Mg) 1 - 2 tab PO Q4H PRN PRN Reason: Pain Last Admin: 01/23/18 09:43 Dose: 2 tab Albuterol (Proventil Neb Soln) 2.5 mg NEB Q2H PRN PRN Reason: Shortness Of Breath/wheezing Albuterol/Ipratropium (Duoneb 3.0-0.5 Mg/3 Ml) 3 ml NEB Q4H PRN PRN Reason: Shortness Of Breath/wheezing Artificial Tears (Isopto Tears 0.5% Ophth Soln) 0 ml EYEBOTH BID [facility] Last Admin: 01/23/18 09:19 Dose: 1 drop Bisacodyl (Dulcolax) 5 mg PO DAILY PRN PRN Reason: Constipation Last Admin: 01/22/18 09:35 Dose: 5 mg Clonidine HCl (Catapres) 0.3 mg PO BID [facility] Last Admin: 01/23/18 09:20 Dose: 0.3 mg Cyclobenzaprine HCl (Flexeril) 10 mg PO TID PRN PRN Reason: Muscle Spasm Last Admin: 01/23/18 09:43 Dose: 10 mg Dextrose/Water (Dextrose 50% In Water) 50 ml IVPUSH ASDIRECTED PRN PRN Reason: Hypoglycemia Diphenhydramine HCl (Benadryl) 25 mg IVPUSH Q6H PRN PRN Reason: Pruritis Last Admin: 01/20/18 23:35 Dose: 25 mg Docusate Sodium (Colace) 100 mg PO BID PRN PRN Reason: Constipation Docusate Sodium (Colace) 100 mg PO BID [facility] Last Admin: 01/23/18 09:23 Dose: 100 mg Enoxaparin Sodium (Lovenox) 40 mg SUBCUT DAILY [facility] Last Admin: 01/23/18 09:24 Dose: 40 mg Famotidine (Pepcid) 20 mg PO DAILY [facility] Last Admin: 01/23/18 09:20 Dose: 20 mg Furosemide (Lasix) 40 mg PO DAILY [facility] Last Admin: 01/23/18 09:23 Dose: 40 mg Hydralazine HCl (Apresoline) 20 mg IVPUSH Q6H PRN PRN Reason: Hypertension Last Admin: 01/23/18 02:14 Dose: 20 mg Hydromorphone HCl (Dilaudid) 0.5 mg IVPUSH Q4H PRN PRN Reason: Pain Last Admin: 01/22/18 22:28 Dose: 0.5 mg Insulin Aspart (Novolog) 0 unit SUBCUT QIDACANDBED [facility]; Protocol Last Admin: 01/23/18 11:56 Dose: 1 unit Levothyroxine Sodium (Synthroid) 100 mcg PO DAILY@0600 [facility] Last Admin: 01/23/18 05:41 Dose: 100 mcg Losartan Potassium (Cozaar) 100 mg PO BEDTIME [facility] Last Admin: 01/22/18 20:36 Dose: 100 mg Magnesium Hydroxide (Milk Of Magnesia) 30 ml PO Q12H PRN PRN Reason: Constipation Last Admin: 01/22/18 18:14 Dose: 30 ml Memantine (Namenda) 5 mg PO DAILY [facility] Last Admin: 01/23/18 09:23 Dose: 5 mg Metformin HCl (Glucophage) 500 mg PO BIDMEALS [facility] Metoprolol Succinate (Toprol Xl) 25 mg PO DAILY [facility] Last Admin: 01/23/18 09:23 Dose: 25 mg Metoprolol Tartrate (Lopressor) 5 mg IVPUSH Q4H PRN PRN Reason: Hypertension Last Admin: 01/21/18 09:45 Dose: 5 mg Naloxone HCl (Narcan) 0.1 mg IVPUSH Q5M PRN PRN Reason: Oversedation Ondansetron HCl (Zofran) 4 mg IVPUSH Q4H PRN PRN Reason: Nausea/Vomiting Last Admin: 01/20/18 23:35 Dose: 4 mg Imatinib Mesylate [ (Gleevec] 600 Mg) 0 each PO DAILY [facility] Last Admin: 01/23/18 09:26 Dose: 600 each Loxapine 50 Mg 0 each PO BEDTIME [facility] Last Admin: 01/22/18 20:38 Dose: 50 each Loxapine 25 Mg 0 each PO DAILY@1800 [facility] Last Admin: 01/22/18 18:13 Dose: 1 each Polyethylene Glycol (Miralax) 17 gm PO DAILY PRN PRN Reason: Constipation Senna/Docusate Sodium (Senna Plus) 1 tab PO BID PRN PRN Reason: Constipation Simvastatin (Zocor) 10 mg PO BEDTIME [facility] Last Admin: 01/22/18 20:36 Dose: 10 mg Sodium Chloride (Saline Flush) 10 ml FLUSH ONETIME PRN PRN Reason: IV FLUSH Last Admin: 01/21/18 18:06 Dose: 10 ml Spironolactone (Aldactone) 25 mg PO DAILY [facility] Last Admin: 01/23/18 09:23 Dose: 25 mg Temazepam (Restoril) 7.5 mg PO BEDTIME [facility] Last Admin: 01/22/18 20:35 Dose: 7.5 mg Tramadol HCl (Ultram) 50 mg PO Q8H [facility] Last Admin: 01/23/18 11:56 Dose: 50 mg Trazodone HCl (Trazodone) 100 mg PO BEDTIME [facility] Last Admin: 01/22/18 20:35 Dose: 100 mg Discontinued Medications Albuterol (Proventil Neb Soln) 2.5 mg NEB ONETIME ONE Stop: 01/20/18 13:58 Last Admin: 01/20/18 19:13 Dose: Not Given Artificial Tears (Isopto Tears 0.5% Ophth Soln) 0 ml EYEBOTH BID [facility] Last Admin: 01/19/18 15:00 Dose: Not Given Artificial Tears (Isopto Tears 0.5% Ophth Soln) 0 ml EYEBOTH BID [facility] Last Admin: 01/19/18 14:20 Dose: 1 drop Bisacodyl (Dulcolax) 10 mg RECTAL ONETIME ONE Stop: 01/23/18 06:12 Last Admin: 01/23/18 06:25 Dose: 10 mg Bupivacaine HCl (Sensorcaine-Mpf 0.75%) Confirm Administered Dose 30 ml .ROUTE .STK-MED ONE Stop: 01/20/18 11:45 Bupivacaine HCl (Marcaine 0.25%) Confirm Administered Dose 30 ml .ROUTE .STK- MED ONE Stop: 01/20/18 12:15 Last Admin: 01/20/18 13:48 Dose: 30 ml Cefazolin Sodium (Ancef) Confirm Administered Dose 2 gm .ROUTE .[facility]-MED ONE Stop: 01/20/18 11:46 Clonidine HCl (Catapres) 0.3 mg PO BID [facility] Clonidine HCl (Catapres) 0.1 mg PO ONETIME ONE Stop: 01/19/18 19:38 Last Admin: 01/19/18 19:59 Dose: 0.1 mg Clonidine HCl (Catapres) 0.1 mg PO Q8H [facility] Last Admin: 01/22/18 04:14 Dose: 0.1 mg Dextrose (Glutose 15) 15 gm PO ASDIRECTED PRN PRN Reason: LOW BS Famotidine (Pepcid) 20 mg PO BID [facility] Last Admin: 01/19/18 13:10 Dose: 20 mg Famotidine (Pepcid) 20 mg PO Q12H [facility] Last Admin: 01/20/18 17:13 Dose: Not Given Famotidine (Pepcid) 20 mg PO BID@0600,1800 [facility] Last Admin: 01/21/18 05:28 Dose: 20 mg Fentanyl (Sublimaze) Confirm Administered Dose 100 mcg .ROUTE .[facility]-MED ONE Stop: 01/20/18 11:46 Fentanyl (Sublimaze) 50 mcg IVPUSH Q5M PRN PRN Reason: Pain Furosemide (Lasix) 40 mg PO TID [facility] Last Admin: 01/19/18 14:19 Dose: 40 mg Furosemide (Lasix) 40 mg PO TID [facility] Furosemide (Lasix) 40 mg PO DAILY [facility] Furosemide (Lasix) 40 mg IVPUSH NOW ONE Stop: 01/20/18 05:01 Last Admin: 01/20/18 06:00 Dose: 40 mg Furosemide (Lasix) 40 mg IVPUSH ONETIME ONE Stop: 01/21/18 12:01 Last Admin: 01/21/18 13:27 Dose: 40 mg Hydromorphone HCl (Dilaudid) 1 mg IVPUSH ONETIME ONE Stop: 01/19/18 05:25 Last Admin: 01/19/18 05:48 Dose: 1 mg Hydromorphone HCl (Dilaudid) 0.5 mg IVPUSH ONETIME ONE Stop: 01/19/18 07:33 Last Admin: 01/19/18 07:53 Dose: 0.5 mg Hydromorphone HCl (Dilaudid) 0.5 mg IM ONETIME ONE Stop: 01/21/18 13:18 Last Admin: 01/21/18 13:15 Dose: Not Given Sodium Chloride (Normal Saline) 1,000 mls @ 250 mls/hr IV ASDIRECTED [facility] Last Admin: 01/19/18 05:47 Dose: 250 mls/hr Lactated Ringer's (Ringers, Lactated) 1,000 mls @ 125 mls/hr IV ASDIRECTED [facility] Last Infusion: 01/20/18 12:30 Dose: 0 mls/hr Vancomycin HCl 1 gm/ Sodium (Chloride) 250 mls @ 250 mls/hr IV ONETIME ONE Stop: 01/20/18 14:14 Last Admin: 01/20/18 19:13 Dose: Not Given Sodium Chloride (Normal Saline) Confirm Administered Dose 100 mls @ as directed .ROUTE .STK-MED ONE Stop: 01/20/18 14:00 Lactated Ringer's (Ringers, Lactated) Confirm Administered Dose 1,000 mls @ as directed .ROUTE .STK-MED ONE Stop: 01/20/18 14:49 Lactated Ringer's (Ringers, Lactated) Confirm Administered Dose 1,000 mls @ as directed .ROUTE .STK-MED ONE Stop: 01/20/18 14:49 Cefazolin Sodium/Dextrose 2 gm (/ Premix) 50 mls @ 100 mls/hr IV Q8H [facility] Stop: 01/21/18 12:29 Last Admin: 01/21/18 11:04 Dose: 100 mls/hr Sodium Chloride (Normal Saline) 500 mls @ 75 mls/hr IV ONETIME ONE Stop: 01/21/18 17:39 Last Admin: 01/21/18 11:44 Dose: 75 mls/hr Iopamidol (Isovue-300 (61%)) 100 ml IVPUSH ONETIME ONE Stop: 01/19/18 15:46 Last Admin: 01/19/18 15:49 Dose: 100 ml Ketamine HCl (Ketalar) Confirm Administered Dose 500 mg .ROUTE .STK-MED ONE Stop: 01/20/18 11:47 Ketorolac Tromethamine (Toradol) 15 mg IVPUSH Q6H [facility] Stop: 01/20/18 17:01 Last Admin: 01/20/18 18:02 Dose: 15 mg Levothyroxine Sodium (Synthroid) 100 mcg PO DAILY [facility] Last Admin: 01/22/18 09:41 Dose: Not Given Lidocaine HCl (Xylocaine-Mpf 1%) Confirm Administered Dose 5 ml .ROUTE .STK-MED ONE Stop: 01/20/18 12:33 Losartan Potassium (Cozaar) 100 mg PO DAILY [facility] Last Admin: 01/19/18 14:19 Dose: 100 mg Metoprolol Succinate (Toprol Xl) 25 mg PO DAILY [facility] Last Admin: 01/19/18 14:14 Dose: 25 mg Midazolam HCl (Versed 1 Mg/Ml) Confirm Administered Dose 2 mg .ROUTE .STK-MED ONE Stop: 01/20/18 11:46 Midazolam HCl (Versed 1 Mg/Ml) Confirm Administered Dose 2 mg .ROUTE .STK-MED ONE Stop: 01/20/18 13:28 Morphine Sulfate (Duramorph Pf) Confirm Administered Dose 1 mg .ROUTE .STK-MED ONE Stop: 01/20/18 12:28 Naloxone HCl (Narcan) 0.5 mg IVPUSH ONETIME ONE Stop: 01/19/18 17:04 Last Admin: 01/19/18 17:28 Dose: 0.5 mg Non-Formulary Medication (Acetaminophen) 650 mg PO Q8H PRN PRN Reason: Pain Ondansetron HCl (Zofran) 4 mg IVPUSH ONETIME ONE Stop: 01/19/18 05:25 Last Admin: 01/19/18 05:47 Dose: 4 mg Ondansetron HCl (Zofran) 4 mg IVPUSH ONETIME PRN PRN Reason: Nausea/Vomiting Ondansetron HCl (Zofran) Confirm Administered Dose 4 mg .ROUTE .STK-MED ONE Stop: 01/20/18 14:49 Pantoprazole Sodium (Protonix Iv) 40 mg IVPUSH DAILY [facility] Pantoprazole Sodium (Protonix Iv) 40 mg IVPUSH BID [facility] Last Admin: 01/20/18 09:37 Dose: 40 mg Loxapine 25 Mg 0 each PO DAILY@1400 [facility] Last Admin: 01/19/18 15:00 Dose: Not Given Phenylephrine HCl (Rodney-Synephrine) Confirm Administered Dose 10 mg .ROUTE .STK- MED ONE Stop: 01/20/18 14:00 Phenylephrine HCl (Phenylephrine In Ns 100 Mcg/Ml) Confirm Administered Dose 1 mg .ROUTE .STK-MED ONE Stop: 01/20/18 14:01 Propofol (Diprivan 20 Ml) Confirm Administered Dose 600 mg .ROUTE .STK-MED ONE Stop: 01/20/18 11:46 Temazepam (Restoril) 30 mg PO BEDTIME [facility] - Exam Wound/Incisions: Dressing Dry and Intact General: Alert, Cooperative, No Acute Distress Lungs: Normal Respiratory Effort Extremities: Other (Left thigh soft. NVS intact for BLE. Shashi's negative for LLE.) - Problem List Review Problem List Initiated/Reviewed/Updated: Yes - My Orders Last 24 Hours: Active Orders 24 hr Category Date Time Status C-REACTIVE PROTEIN [CHEM] AM Lab 01/24/18 05:11 Ordered CBC WITH AUTO DIFF [HEME] AM Lab 01/24/18 05:11 Ordered COMPREHENSIVE METABOLIC PN,CMP [CHEM] AM Lab 01/24/18 05:11 Ordered LACTIC ACID [CHEM] AM Lab 01/24/18 05:11 Ordered MAGNESIUM [CHEM] AM Lab 01/24/18 05:11 Ordered PRO B-TYPE NATRIUR PEPT,BNPPRO [CHEM] DAILY Lab 01/24/18 08:00 Ordered Losartan [Cozaar] Med 01/22/18 21:00 Active 100 mg PO BEDTIME Medication Orders Acetaminophen (Tylenol) 650 mg PO Q6H PRN PRN Reason: Pain/Fever Last Admin: 01/20/18 08:27 Dose: 650 mg Admin: 01/19/18 19:01 Dose: 650 mg Hydrocodone Bitart/Acetaminophen ([place] 325-5 Mg) 1 - 2 tab PO Q4H PRN PRN Reason: Pain Last Admin: 01/23/18 09:43 Dose: 2 tab Admin: 01/22/18 09:18 Dose: 2 tab Admin: 01/21/18 15:20 Dose: 2 tab Admin: 01/21/18 07:33 Dose: 2 tab Admin: 01/21/18 00:05 Dose: 2 tab Albuterol (Proventil Neb Soln) 2.5 mg NEB Q2H PRN PRN Reason: Shortness Of Breath/wheezing Albuterol/Ipratropium (Duoneb 3.0-0.5 Mg/3 Ml) 3 ml NEB Q4H PRN PRN Reason: Shortness Of Breath/wheezing Artificial Tears (Isopto Tears 0.5% Ophth Soln) 0 ml EYEBOTH BID [facility] Last Admin: 01/23/18 09:19 Dose: 1 drop Admin: 01/22/18 20:37 Dose: 2 drop Admin: 01/22/18 09:34 Dose: 1 drop Admin: 01/21/18 20:36 Dose: 1 drop Admin: 01/21/18 08:11 Dose: 1 drop Admin: 01/20/18 20:47 Dose: 1 drop Admin: 01/20/18 09:37 Dose: 1 drop Admin: 01/19/18 20:00 Dose: 1 drop Bisacodyl (Dulcolax) 5 mg PO DAILY PRN PRN Reason: Constipation Last Admin: 01/22/18 09:35 Dose: 5 mg Clonidine HCl (Catapres) 0.3 mg PO BID [facility] Last Admin: 01/23/18 09:20 Dose: 0.3 mg Admin: 01/22/18 20:35 Dose: 0.3 mg Admin: 01/22/18 09:34 Dose: 0.3 mg Cyclobenzaprine HCl (Flexeril) 10 mg PO TID PRN PRN Reason: Muscle Spasm Last Admin: 01/23/18 09:43 Dose: 10 mg Admin: 01/22/18 09:20 Dose: 10 mg Admin: 01/21/18 16:57 Dose: 10 mg Admin: 01/21/18 05:28 Dose: 10 mg Admin: 01/20/18 02:56 Dose: 10 mg Admin: 01/19/18 19:02 Dose: 10 mg Dextrose/Water (Dextrose 50% In Water) 50 ml IVPUSH ASDIRECTED PRN PRN Reason: Hypoglycemia Diphenhydramine HCl (Benadryl) 25 mg IVPUSH Q6H PRN PRN Reason: Pruritis Last Admin: 01/20/18 23:35 Dose: 25 mg Docusate Sodium (Colace) 100 mg PO BID PRN PRN Reason: Constipation Docusate Sodium (Colace) 100 mg PO BID [facility] Last Admin: 01/23/18 09:23 Dose: 100 mg Admin: 01/22/18 20:36 Dose: 100 mg Admin: 01/22/18 09:34 Dose: 100 mg Admin: 01/21/18 20:34 Dose: 100 mg Admin: 01/21/18 08:10 Dose: 100 mg Admin: 01/20/18 20:46 Dose: 100 mg Enoxaparin Sodium (Lovenox) 40 mg SUBCUT DAILY [facility] Last Admin: 01/23/18 09:24 Dose: 40 mg Admin: 01/22/18 09:36 Dose: 40 mg Admin: 01/21/18 08:11 Dose: 40 mg Famotidine (Pepcid) 20 mg PO DAILY [facility] Last Admin: 01/23/18 09:20 Dose: 20 mg Admin: 01/22/18 09:35 Dose: 20 mg Furosemide (Lasix) 40 mg PO DAILY [facility] Last Admin: 01/23/18 09:23 Dose: 40 mg Admin: 01/22/18 09:35 Dose: 40 mg Admin: 01/21/18 08:10 Dose: 40 mg Hydralazine HCl (Apresoline) 20 mg IVPUSH Q6H PRN PRN Reason: Hypertension Last Admin: 01/23/18 02:14 Dose: 20 mg Admin: 01/20/18 08:57 Dose: 20 mg Admin: 01/19/18 17:28 Dose: 20 mg Hydromorphone HCl (Dilaudid) 0.5 mg IVPUSH Q4H PRN PRN Reason: Pain Last Admin: 01/22/18 22:28 Dose: 0.5 mg Admin: 01/21/18 18:07 Dose: 0.5 mg Admin: 01/21/18 13:22 Dose: 0.5 mg Admin: 01/19/18 21:15 Dose: 0.5 mg Insulin Aspart (Novolog) 0 unit SUBCUT QIDACANDBED [facility]; Protocol Last Admin: 01/23/18 11:56 Dose: 1 unit Admin: 01/23/18 06:31 Dose: 1 unit Admin: 01/22/18 22:22 Dose: 1 unit Admin: 01/22/18 16:43 Dose: Not Given Admin: 01/22/18 11:44 Dose: 2 unit Admin: 01/22/18 06:15 Dose: Not Given Admin: 01/21/18 21:20 Dose: 1 unit Admin: 01/21/18 16:56 Dose: 1 unit Admin: 01/21/18 11:14 Dose: 1 unit Admin: 01/21/18 06:07 Dose: Not Given Admin: 01/20/18 22:07 Dose: 1 unit Admin: 01/20/18 17:58 Dose: Not Given Admin: 01/20/18 12:02 Dose: Not Given Admin: 01/20/18 07:33 Dose: Admin: 01/19/18 21:10 Dose: Admin: 01/19/18 17:54 Dose: Not Given Levothyroxine Sodium (Synthroid) 100 mcg PO DAILY@0600 [facility] Last Admin: 01/23/18 05:41 Dose: 100 mcg Admin: 01/22/18 06:04 Dose: 100 mcg Admin: 01/21/18 05:28 Dose: 100 mcg Admin: 01/20/18 06:35 Dose: 100 mcg Admin: 01/19/18 14:19 Dose: 100 mcg Losartan Potassium (Cozaar) 100 mg PO BEDTIME [facility] Last Admin: 01/22/18 20:36 Dose: 100 mg Magnesium Hydroxide (Milk Of Magnesia) 30 ml PO Q12H PRN PRN Reason: Constipation Last Admin: 01/22/18 18:14 Dose: 30 ml Memantine (Namenda) 5 mg PO DAILY [facility] Last Admin: 01/23/18 09:23 Dose: 5 mg Admin: 01/22/18 09:36 Dose: 5 mg Admin: 01/21/18 08:10 Dose: 5 mg Admin: 01/20/18 09:37 Dose: 5 mg Admin: 01/19/18 14:19 Dose: 5 mg Metformin HCl (Glucophage) 500 mg PO BIDMEALS [facility] Metoprolol Succinate (Toprol Xl) 25 mg PO DAILY [facility] Last Admin: 01/23/18 09:23 Dose: 25 mg Admin: 01/22/18 09:35 Dose: 25 mg Metoprolol Tartrate (Lopressor) 5 mg IVPUSH Q4H PRN PRN Reason: Hypertension Last Admin: 01/21/18 09:45 Dose: 5 mg Admin: 01/19/18 18:03 Dose: 5 mg Naloxone HCl (Narcan) 0.1 mg IVPUSH Q5M PRN PRN Reason: Oversedation Ondansetron HCl (Zofran) 4 mg IVPUSH Q4H PRN PRN Reason: Nausea/Vomiting Last Admin: 01/20/18 23:35 Dose: 4 mg Admin: 01/20/18 16:53 Dose: 4 mg Admin: 01/19/18 21:15 Dose: 4 mg Admin: 01/19/18 13:10 Dose: 4 mg Imatinib Mesylate [ (Gleevec] 600 Mg) 0 each PO DAILY [facility] Last Admin: 01/23/18 09:26 Dose: 600 each Admin: 01/22/18 09:38 Dose: 600 each Admin: 01/21/18 08:12 Dose: 600 each Admin: 01/20/18 09:38 Dose: 600 each Loxapine 50 Mg 0 each PO BEDTIME [facility] Last Admin: 01/22/18 20:38 Dose: 50 each Admin: 01/21/18 20:37 Dose: 50 each Admin: 01/20/18 20:46 Dose: 50 each Admin: 01/19/18 20:03 Dose: 50 each Loxapine 25 Mg 0 each PO DAILY@1800 [facility] Last Admin: 01/22/18 18:13 Dose: 1 each Admin: 01/21/18 18:08 Dose: 1 each Admin: 01/20/18 18:03 Dose: 1 each Admin: 01/19/18 17:40 Dose: 25 each Polyethylene Glycol (Miralax) 17 gm PO DAILY PRN PRN Reason: Constipation Senna/Docusate Sodium (Senna Plus) 1 tab PO BID PRN PRN Reason: Constipation Simvastatin (Zocor) 10 mg PO BEDTIME [facility] Last Admin: 01/22/18 20:36 Dose: 10 mg Admin: 01/21/18 20:34 Dose: 10 mg Admin: 01/20/18 20:46 Dose: 10 mg Admin: 01/19/18 20:01 Dose: 10 mg Sodium Chloride (Saline Flush) 10 ml FLUSH ONETIME PRN PRN Reason: IV FLUSH Last Admin: 01/21/18 18:06 Dose: 10 ml Admin: 01/19/18 15:49 Dose: 10 ml Spironolactone (Aldactone) 25 mg PO DAILY [facility] Last Admin: 01/23/18 09:23 Dose: 25 mg Admin: 01/22/18 09:35 Dose: 25 mg Admin: 01/21/18 08:10 Dose: 25 mg Admin: 01/20/18 09:37 Dose: 25 mg Temazepam (Restoril) 7.5 mg PO BEDTIME [facility] Last Admin: 01/22/18 20:35 Dose: 7.5 mg Admin: 01/21/18 20:35 Dose: 7.5 mg Admin: 01/20/18 20:46 Dose: 7.5 mg Admin: 01/19/18 20:02 Dose: 7.5 mg Tramadol HCl (Ultram) 50 mg PO Q8H [facility] Last Admin: 01/23/18 11:56 Dose: 50 mg Admin: 01/23/18 02:14 Dose: 50 mg Admin: 01/22/18 18:13 Dose: 50 mg Admin: 01/22/18 11:43 Dose: 50 mg Admin: 01/22/18 02:55 Dose: 50 mg Admin: 01/21/18 20:37 Dose: 50 mg Admin: 01/21/18 11:02 Dose: 50 mg Admin: 01/21/18 04:20 Dose: 50 mg Admin: 01/20/18 18:03 Dose: 50 mg Admin: 01/20/18 10:33 Dose: 50 mg Admin: 01/20/18 02:56 Dose: 50 mg Admin: 01/19/18 18:04 Dose: 50 mg Admin: 01/19/18 11:17 Dose: 50 mg Trazodone HCl (Trazodone) 100 mg PO BEDTIME [facility] Last Admin: 01/22/18 20:35 Dose: 100 mg Admin: 01/21/18 20:35 Dose: 100 mg Admin: 01/20/18 20:46 Dose: 100 mg Admin: 01/19/18 20:01 Dose: 100 mg - Assessment Assessment (Free Text/Narrative):: POD#3 - s/p IM nail for left femur fx - Plan Plan (Free Text/Narrative):: 1. Orders per Hospitalist service. 2. Continue with P.T. and O.T. The pt's case was discussed with Dr. Lanza.
--- NOTE | 2018-01-23 14:36 | PCM.PN ---
- General Info Date of Service: 01/23/18 Admission Dx/Problem (Free Text): Admission Diagnosis/Problem Admission Diagnosis/Problem Fall at home Subjective Update: In to see Francoise today. She is just getting off of the commode with nursing and getting put back into bed. POD 3 s/p left femoral fracture repair. Overall she is doing quite well. She has been constipated x5 days and medications given so far have not worked. Will try fleet enema today. She has been sleeping well. Good appetite. Ambulating as tolerated- Walked 5 steps with PT today. Pain is controlled. No Nausea or vomiting. Urinating. Incentive Spirometry. No concerns from nursing. Will be DCd to SNF for rehab once we are able to get placement. Functional Status: Reports: Pain Controlled, Tolerating Diet, Ambulating (5 steps with PT today), Urinating - Review of Systems General: Reports: No Symptoms. Denies: Fever, Chills HEENT: Reports: No Symptoms Pulmonary: Reports: Shortness of Breath (exertional), Wheezing. Denies: Pleuritic Chest Pain, Cough Cardiovascular: Reports: Dyspnea on Exertion, Edema (R leg, s/p fracture repair) Gastrointestinal: Reports: Constipation (last BM on the ). Denies: Abdominal Pain, Diarrhea, Nausea, Vomiting Genitourinary: Reports: No Symptoms. Denies: Dysuria, Frequency, Burning, Pain Musculoskeletal: Reports: Joint Pain (s/p left fracture repair surgery) Skin: Reports: No Symptoms Neurological: Reports: No Symptoms Psychiatric: Reports: No Symptoms - Patient Data Vitals - Most Recent: Last Vital Signs Temp 97.7 F 01/23/18 12:00 Pulse 83 01/23/18 12:00 Resp 14 01/23/18 12:00 BP 111/39 L 01/23/18 12:00 Pulse Ox 98 01/23/18 12:00 Weight - Most Recent: 192 lb I&O - Last 24 Hours: Intake & Output 01/22/18 01/23/18 01/23/18 22:59 06:59 14:59 Intake Total 900 200 Output Total 500 Balance 900 -300 Lab Results Last 24 Hours: Laboratory Results - last 24 hr 01/22/18 01/22/18 01/22/18 Range/Units 15:52 18:02 20:33 WBC (3.98-10.04) K/mm3 RBC (3.98-5.22) M/mm3 Hgb 9.6 L (11.2-15.7) gm/L Hct 28.2 L (34.1-44.9) % MCV (79.4-94.8) fl MCH (25.6-32.2) pg MCHC (32.2-35.5) g/dl RDW Std Deviation (36.4-46.3) fL Plt Count (182-369) K/mm3 MPV (9.4-12.3) fl Neut % (Auto) (34.0-71.1) % Lymph % (Auto) (19.3-51.7) % [place] % (Auto) (4.7-12.5) % Eos % (Auto) (0.7-5.8) Baso % (Auto) (0.1-1.2) % Neut # (Auto) (1.56-6.13) K/mm3 Lymph # (Auto) (1.18-3.74) K/mm3 [place] # (Auto) (0.24-0.36) K/mm3 Eos # (Auto) (0.04-0.36) K/mm3 Baso # (Auto) (0.01-0.08) K/mm3 Sodium (136-145) mEq/L Potassium (3.5-5.1) mEq/L Chloride (98-107) mEq/L Carbon Dioxide (21-32) mEq/L Anion Gap (5-15) BUN (7-18) mg/dL Creatinine (0.55-1.02) mg/dL Est Cr Clr Drug Dosing mL/min Estimated GFR (MDRD) (>60) mL/min BUN/Creatinine Ratio (14-18) Glucose (80-115) mg/dL POC Glucose 143 H 197 H (80-115) mg/dL Lactic Acid (0.4-2.0) mmol/L Calcium (8.5-10.1) mg/dL Magnesium (1.8-2.4) mg/dl Total Bilirubin (0.2-1.0) mg/dL AST (15-37) U/L ALT (14-59) U/L Alkaline Phosphatase (46-116) U/L C-Reactive Protein (<1.0) mg/dL NT-Pro-B Natriuret Pep (0-125) pg/mL Total Protein (6.4-8.2) g/dl Albumin (3.4-5.0) g/dl Globulin gm/dL Albumin/Globulin Ratio (1-2) 01/23/18 01/23/18 01/23/18 Range/Units 05:45 05:48 05:48 WBC 9.38 (3.98-10.04) K/mm3 RBC 3.07 L (3.98-5.22) M/mm3 Hgb 9.6 L (11.2-15.7) gm/L Hct 29.1 L (34.1-44.9) % MCV 94.8 (79.4-94.8) fl MCH 31.3 (25.6-32.2) pg MCHC 33.0 (32.2-35.5) g/dl RDW Std Deviation 51.3 H (36.4-46.3) fL Plt Count 168 L (182-369) K/mm3 MPV 9.2 L (9.4-12.3) fl Neut % (Auto) 63.8 (34.0-71.1) % Lymph % (Auto) 20.8 (19.3-51.7) % [place] % (Auto) 11.4 (4.7-12.5) % Eos % (Auto) 3.4 (0.7-5.8) Baso % (Auto) 0.4 (0.1-1.2) % Neut # (Auto) 5.98 (1.56-6.13) K/mm3 Lymph # (Auto) 1.95 (1.18-3.74) K/mm3 [place] # (Auto) 1.07 H (0.24-0.36) K/mm3 Eos # (Auto) 0.32 (0.04-0.36) K/mm3 Baso # (Auto) 0.04 (0.01-0.08) K/mm3 Sodium 132 L (136-145) mEq/L Potassium 4.0 (3.5-5.1) mEq/L Chloride 100 (98-107) mEq/L Carbon Dioxide 27 (21-32) mEq/L Anion Gap 9.0 (5-15) BUN 27 H (7-18) mg/dL Creatinine 1.1 H (0.55-1.02) mg/dL Est Cr Clr Drug Dosing 38.09 mL/min Estimated GFR (MDRD) 50 (>60) mL/min BUN/Creatinine Ratio 24.5 H (14-18) Glucose 144 H (80-115) mg/dL POC Glucose (80-115) mg/dL Lactic Acid (0.4-2.0) mmol/L Calcium 8.1 L (8.5-10.1) mg/dL Magnesium 2.3 (1.8-2.4) mg/dl Total Bilirubin 1.0 (0.2-1.0) mg/dL AST 77 H (15-37) U/L ALT 30 (14-59) U/L Alkaline Phosphatase 74 (46-116) U/L C-Reactive Protein 4.9 H* (<1.0) mg/dL NT-Pro-B Natriuret Pep 2782 H (0-125) pg/mL Total Protein 5.7 L (6.4-8.2) g/dl Albumin 2.7 L (3.4-5.0) g/dl Globulin 3.0 gm/dL Albumin/Globulin Ratio 0.9 L (1-2) 01/23/18 01/23/18 01/23/18 Range/Units 05:48 06:31 11:55 WBC (3.98-10.04) K/mm3 RBC (3.98-5.22) M/mm3 Hgb (11.2-15.7) gm/L Hct (34.1-44.9) % MCV (79.4-94.8) fl MCH (25.6-32.2) pg MCHC (32.2-35.5) g/dl RDW Std Deviation (36.4-46.3) fL Plt Count (182-369) K/mm3 MPV (9.4-12.3) fl Neut % (Auto) (34.0-71.1) % Lymph % (Auto) (19.3-51.7) % [place] % (Auto) (4.7-12.5) % Eos % (Auto) (0.7-5.8) Baso % (Auto) (0.1-1.2) % Neut # (Auto) (1.56-6.13) K/mm3 Lymph # (Auto) (1.18-3.74) K/mm3 [place] # (Auto) (0.24-0.36) K/mm3 Eos # (Auto) (0.04-0.36) K/mm3 Baso # (Auto) (0.01-0.08) K/mm3 Sodium (136-145) mEq/L Potassium (3.5-5.1) mEq/L Chloride (98-107) mEq/L Carbon Dioxide (21-32) mEq/L Anion Gap (5-15) BUN (7-18) mg/dL Creatinine (0.55-1.02) mg/dL Est Cr Clr Drug Dosing mL/min Estimated GFR (MDRD) (>60) mL/min BUN/Creatinine Ratio (14-18) Glucose (80-115) mg/dL POC Glucose 150 H 196 H (80-115) mg/dL Lactic Acid 1.1 (0.4-2.0) mmol/L Calcium (8.5-10.1) mg/dL Magnesium (1.8-2.4) mg/dl Total Bilirubin (0.2-1.0) mg/dL AST (15-37) U/L ALT (14-59) U/L Alkaline Phosphatase (46-116) U/L C-Reactive Protein (<1.0) mg/dL NT-Pro-B Natriuret Pep (0-125) pg/mL Total Protein (6.4-8.2) g/dl Albumin (3.4-5.0) g/dl Globulin gm/dL Albumin/Globulin Ratio (1-2) Med Orders - Current: Current Medications Acetaminophen (Tylenol) 650 mg PO Q6H PRN PRN Reason: Pain/Fever Last Admin: 01/20/18 08:27 Dose: 650 mg Hydrocodone Bitart/Acetaminophen ([place] 325-5 Mg) 1 - 2 tab PO Q4H PRN PRN Reason: Pain Last Admin: 01/23/18 09:43 Dose: 2 tab Albuterol (Proventil Neb Soln) 2.5 mg NEB Q2H PRN PRN Reason: Shortness Of Breath/wheezing Albuterol/Ipratropium (Duoneb 3.0-0.5 Mg/3 Ml) 3 ml NEB Q4H PRN PRN Reason: Shortness Of Breath/wheezing Artificial Tears (Isopto Tears 0.5% Ophth Soln) 0 ml EYEBOTH BID [facility] Last Admin: 01/23/18 09:19 Dose: 1 drop Bisacodyl (Dulcolax) 5 mg PO DAILY PRN PRN Reason: Constipation Last Admin: 01/22/18 09:35 Dose: 5 mg Clonidine HCl (Catapres) 0.3 mg PO BID [facility] Last Admin: 01/23/18 09:20 Dose: 0.3 mg Cyclobenzaprine HCl (Flexeril) 10 mg PO TID PRN PRN Reason: Muscle Spasm Last Admin: 01/23/18 09:43 Dose: 10 mg Dextrose/Water (Dextrose 50% In Water) 50 ml IVPUSH ASDIRECTED PRN PRN Reason: Hypoglycemia Diphenhydramine HCl (Benadryl) 25 mg IVPUSH Q6H PRN PRN Reason: Pruritis Last Admin: 01/20/18 23:35 Dose: 25 mg Docusate Sodium (Colace) 100 mg PO BID PRN PRN Reason: Constipation Docusate Sodium (Colace) 100 mg PO BID [facility] Last Admin: 01/23/18 09:23 Dose: 100 mg Enoxaparin Sodium (Lovenox) 40 mg SUBCUT DAILY [facility] Last Admin: 01/23/18 09:24 Dose: 40 mg Famotidine (Pepcid) 20 mg PO DAILY [facility] Last Admin: 01/23/18 09:20 Dose: 20 mg Furosemide (Lasix) 40 mg PO DAILY [facility] Last Admin: 01/23/18 09:23 Dose: 40 mg Hydralazine HCl (Apresoline) 20 mg IVPUSH Q6H PRN PRN Reason: Hypertension Last Admin: 01/23/18 02:14 Dose: 20 mg Hydromorphone HCl (Dilaudid) 0.5 mg IVPUSH Q4H PRN PRN Reason: Pain Last Admin: 01/22/18 22:28 Dose: 0.5 mg Insulin Aspart (Novolog) 0 unit SUBCUT QIDACANDBED [facility]; Protocol Last Admin: 01/23/18 11:56 Dose: 1 unit Levothyroxine Sodium (Synthroid) 100 mcg PO DAILY@0600 [facility] Last Admin: 01/23/18 05:41 Dose: 100 mcg Losartan Potassium (Cozaar) 100 mg PO BEDTIME [facility] Last Admin: 01/22/18 20:36 Dose: 100 mg Magnesium Hydroxide (Milk Of Magnesia) 30 ml PO Q12H PRN PRN Reason: Constipation Last Admin: 01/22/18 18:14 Dose: 30 ml Memantine (Namenda) 5 mg PO DAILY [facility] Last Admin: 01/23/18 09:23 Dose: 5 mg Metformin HCl (Glucophage) 500 mg PO BIDMEALS [facility] Metoprolol Succinate (Toprol Xl) 25 mg PO DAILY [facility] Last Admin: 01/23/18 09:23 Dose: 25 mg Metoprolol Tartrate (Lopressor) 5 mg IVPUSH Q4H PRN PRN Reason: Hypertension Last Admin: 01/21/18 09:45 Dose: 5 mg Naloxone HCl (Narcan) 0.1 mg IVPUSH Q5M PRN PRN Reason: Oversedation Ondansetron HCl (Zofran) 4 mg IVPUSH Q4H PRN PRN Reason: Nausea/Vomiting Last Admin: 01/20/18 23:35 Dose: 4 mg Imatinib Mesylate [ (Gleevec] 600 Mg) 0 each PO DAILY [facility] Last Admin: 01/23/18 09:26 Dose: 600 each Loxapine 50 Mg 0 each PO BEDTIME [facility] Last Admin: 01/22/18 20:38 Dose: 50 each Loxapine 25 Mg 0 each PO DAILY@1800 [facility] Last Admin: 01/22/18 18:13 Dose: 1 each Polyethylene Glycol (Miralax) 17 gm PO DAILY PRN PRN Reason: Constipation Senna/Docusate Sodium (Senna Plus) 1 tab PO BID PRN PRN Reason: Constipation Simvastatin (Zocor) 10 mg PO BEDTIME [facility] Last Admin: 01/22/18 20:36 Dose: 10 mg Sodium Chloride (Saline Flush) 10 ml FLUSH ONETIME PRN PRN Reason: IV FLUSH Last Admin: 01/21/18 18:06 Dose: 10 ml Spironolactone (Aldactone) 25 mg PO DAILY [facility] Last Admin: 01/23/18 09:23 Dose: 25 mg Temazepam (Restoril) 7.5 mg PO BEDTIME [facility] Last Admin: 01/22/18 20:35 Dose: 7.5 mg Tramadol HCl (Ultram) 50 mg PO Q8H [facility] Last Admin: 01/23/18 11:56 Dose: 50 mg Trazodone HCl (Trazodone) 100 mg PO BEDTIME [facility] Last Admin: 01/22/18 20:35 Dose: 100 mg Discontinued Medications Albuterol (Proventil Neb Soln) 2.5 mg NEB ONETIME ONE Stop: 01/20/18 13:58 Last Admin: 01/20/18 19:13 Dose: Not Given Artificial Tears (Isopto Tears 0.5% Ophth Soln) 0 ml EYEBOTH BID [facility] Last Admin: 01/19/18 15:00 Dose: Not Given Artificial Tears (Isopto Tears 0.5% Ophth Soln) 0 ml EYEBOTH BID [facility] Last Admin: 01/19/18 14:20 Dose: 1 drop Bisacodyl (Dulcolax) 10 mg RECTAL ONETIME ONE Stop: 01/23/18 06:12 Last Admin: 01/23/18 06:25 Dose: 10 mg Bupivacaine HCl (Sensorcaine-Mpf 0.75%) Confirm Administered Dose 30 ml .ROUTE .STK-MED ONE Stop: 01/20/18 11:45 Bupivacaine HCl (Marcaine 0.25%) Confirm Administered Dose 30 ml .ROUTE .STK- MED ONE Stop: 01/20/18 12:15 Last Admin: 01/20/18 13:48 Dose: 30 ml Cefazolin Sodium (Ancef) Confirm Administered Dose 2 gm .ROUTE .STK-MED ONE Stop: 01/20/18 11:46 Clonidine HCl (Catapres) 0.3 mg PO BID [facility] Clonidine HCl (Catapres) 0.1 mg PO ONETIME ONE Stop: 01/19/18 19:38 Last Admin: 01/19/18 19:59 Dose: 0.1 mg Clonidine HCl (Catapres) 0.1 mg PO Q8H [facility] Last Admin: 01/22/18 04:14 Dose: 0.1 mg Dextrose (Glutose 15) 15 gm PO ASDIRECTED PRN PRN Reason: LOW BS Famotidine (Pepcid) 20 mg PO BID [facility] Last Admin: 01/19/18 13:10 Dose: 20 mg Famotidine (Pepcid) 20 mg PO Q12H [facility] Last Admin: 01/20/18 17:13 Dose: Not Given Famotidine (Pepcid) 20 mg PO BID@0600,1800 [facility] Last Admin: 01/21/18 05:28 Dose: 20 mg Fentanyl (Sublimaze) Confirm Administered Dose 100 mcg .ROUTE .STK-MED ONE Stop: 01/20/18 11:46 Fentanyl (Sublimaze) 50 mcg IVPUSH Q5M PRN PRN Reason: Pain Furosemide (Lasix) 40 mg PO TID [facility] Last Admin: 01/19/18 14:19 Dose: 40 mg Furosemide (Lasix) 40 mg PO TID [facility] Furosemide (Lasix) 40 mg PO DAILY [facility] Furosemide (Lasix) 40 mg IVPUSH NOW ONE Stop: 01/20/18 05:01 Last Admin: 01/20/18 06:00 Dose: 40 mg Furosemide (Lasix) 40 mg IVPUSH ONETIME ONE Stop: 01/21/18 12:01 Last Admin: 01/21/18 13:27 Dose: 40 mg Hydromorphone HCl (Dilaudid) 1 mg IVPUSH ONETIME ONE Stop: 01/19/18 05:25 Last Admin: 01/19/18 05:48 Dose: 1 mg Hydromorphone HCl (Dilaudid) 0.5 mg IVPUSH ONETIME ONE Stop: 01/19/18 07:33 Last Admin: 01/19/18 07:53 Dose: 0.5 mg Hydromorphone HCl (Dilaudid) 0.5 mg IM ONETIME ONE Stop: 01/21/18 13:18 Last Admin: 01/21/18 13:15 Dose: Not Given Sodium Chloride (Normal Saline) 1,000 mls @ 250 mls/hr IV ASDIRECTED [facility] Last Admin: 01/19/18 05:47 Dose: 250 mls/hr Lactated Ringer's (Ringers, Lactated) 1,000 mls @ 125 mls/hr IV ASDIRECTED [facility] Last Infusion: 01/20/18 12:30 Dose: 0 mls/hr Vancomycin HCl 1 gm/ Sodium (Chloride) 250 mls @ 250 mls/hr IV ONETIME ONE Stop: 01/20/18 14:14 Last Admin: 01/20/18 19:13 Dose: Not Given Sodium Chloride (Normal Saline) Confirm Administered Dose 100 mls @ as directed .ROUTE .STK-MED ONE Stop: 01/20/18 14:00 Lactated Ringer's (Ringers, Lactated) Confirm Administered Dose 1,000 mls @ as directed .ROUTE .STK-MED ONE Stop: 01/20/18 14:49 Lactated Ringer's (Ringers, Lactated) Confirm Administered Dose 1,000 mls @ as directed .ROUTE .STK-MED ONE Stop: 01/20/18 14:49 Cefazolin Sodium/Dextrose 2 gm (/ Premix) 50 mls @ 100 mls/hr IV Q8H [facility] Stop: 01/21/18 12:29 Last Admin: 01/21/18 11:04 Dose: 100 mls/hr Sodium Chloride (Normal Saline) 500 mls @ 75 mls/hr IV ONETIME ONE Stop: 01/21/18 17:39 Last Admin: 01/21/18 11:44 Dose: 75 mls/hr Iopamidol (Isovue-300 (61%)) 100 ml IVPUSH ONETIME ONE Stop: 01/19/18 15:46 Last Admin: 01/19/18 15:49 Dose: 100 ml Ketamine HCl (Ketalar) Confirm Administered Dose 500 mg .ROUTE .STK-MED ONE Stop: 01/20/18 11:47 Ketorolac Tromethamine (Toradol) 15 mg IVPUSH Q6H [facility] Stop: 01/20/18 17:01 Last Admin: 01/20/18 18:02 Dose: 15 mg Levothyroxine Sodium (Synthroid) 100 mcg PO DAILY [facility] Last Admin: 01/22/18 09:41 Dose: Not Given Lidocaine HCl (Xylocaine-Mpf 1%) Confirm Administered Dose 5 ml .ROUTE .STK-MED ONE Stop: 01/20/18 12:33 Losartan Potassium (Cozaar) 100 mg PO DAILY [facility] Last Admin: 01/19/18 14:19 Dose: 100 mg Metoprolol Succinate (Toprol Xl) 25 mg PO DAILY [facility] Last Admin: 01/19/18 14:14 Dose: 25 mg Midazolam HCl (Versed 1 Mg/Ml) Confirm Administered Dose 2 mg .ROUTE .STK-MED ONE Stop: 01/20/18 11:46 Midazolam HCl (Versed 1 Mg/Ml) Confirm Administered Dose 2 mg .ROUTE .STK-MED ONE Stop: 01/20/18 13:28 Morphine Sulfate (Duramorph Pf) Confirm Administered Dose 1 mg .ROUTE .STK-MED ONE Stop: 01/20/18 12:28 Naloxone HCl (Narcan) 0.5 mg IVPUSH ONETIME ONE Stop: 01/19/18 17:04 Last Admin: 01/19/18 17:28 Dose: 0.5 mg Non-Formulary Medication (Acetaminophen) 650 mg PO Q8H PRN PRN Reason: Pain Ondansetron HCl (Zofran) 4 mg IVPUSH ONETIME ONE Stop: 01/19/18 05:25 Last Admin: 01/19/18 05:47 Dose: 4 mg Ondansetron HCl (Zofran) 4 mg IVPUSH ONETIME PRN PRN Reason: Nausea/Vomiting Ondansetron HCl (Zofran) Confirm Administered Dose 4 mg .ROUTE .STK-MED ONE Stop: 01/20/18 14:49 Pantoprazole Sodium (Protonix Iv) 40 mg IVPUSH DAILY [facility] Pantoprazole Sodium (Protonix Iv) 40 mg IVPUSH BID [facility] Last Admin: 01/20/18 09:37 Dose: 40 mg Loxapine 25 Mg 0 each PO DAILY@1400 [facility] Last Admin: 01/19/18 15:00 Dose: Not Given Phenylephrine HCl (Rodney-Synephrine) Confirm Administered Dose 10 mg .ROUTE .STK- MED ONE Stop: 01/20/18 14:00 Phenylephrine HCl (Phenylephrine In Ns 100 Mcg/Ml) Confirm Administered Dose 1 mg .ROUTE .STK-MED ONE Stop: 01/20/18 14:01 Propofol (Diprivan 20 Ml) Confirm Administered Dose 600 mg .ROUTE .STK-MED ONE Stop: 01/20/18 11:46 Temazepam (Restoril) 30 mg PO BEDTIME [facility] - Exam Quality Assessment: DVT Prophylaxis General: Alert, Oriented, Cooperative, No Acute Distress HEENT: Pupils Equal, Pupils Reactive, EOMI, Mucous Membr. Moist/[place] Neck: Supple Lungs: Clear to Auscultation, Normal Respiratory Effort, Decreased Breath Sounds. No: Rales, Rhonchi, Wheezing Cardiovascular: Regular Rate, Regular Rhythm GI/Abdominal Exam: Normal Bowel Sounds, Soft, Non-Tender, No Organomegaly, No Distention, No Abnormal Bruit, No Mass, Pelvis Stable (Female) Exam: Deferred Back Exam: Normal Inspection, Full Range of Motion Extremities: Normal Inspection, Normal Range of Motion, Non-Tender, Normal Capillary Refill, Pedal Edema (1+, s/p right hip repair surgery) Peripheral Pulses: 1+: Posterior Tibial (L), Posterior Tibial (R), Dorsalis Pedis (L), Dorsalis Pedis (R) Skin: Warm, Dry, Intact Wound/Incisions: Healing Well, Dressing Dry and Intact, No Drainage Neurological: No New Focal Deficit Psy/Mental Status: Alert, Normal Affect, Normal Mood - Problem List & Annotations (1) Fracture of proximal end of femur SNOMED Code(s): 849805511 Code(s): S72.009A - FRACTURE OF UNSP PART OF NECK OF UNSP FEMUR, INIT Status: Acute Priority: High Current Visit: Yes Qualifiers: Encounter type: initial encounter Fracture type: closed Laterality: left Qualified Code(s): S72.002A - Fracture of unspecified part of neck of left femur, initial encounter for closed fracture (2) Anemia SNOMED Code(s): 863548953 Code(s): D64.9 - ANEMIA, UNSPECIFIED Status: Chronic Priority: Medium Current Visit: Yes Qualifiers: 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 type: pancytopenia, antineoplastic chemotherapy-induced Qualified Code(s): D61.810 - Antineoplastic chemotherapy induced pancytopenia; T45.1X5A - Adverse effect of antineoplastic and immunosuppressive drugs, initial encounter (3) Congestive heart failure SNOMED Code(s): 90828970 Code(s): I50.9 - HEART FAILURE, UNSPECIFIED Status: Chronic Priority: Medium Current Visit: Yes Qualifiers: Heart failure type: diastolic Heart failure chronicity: chronic Qualified Code(s): I50.32 - Chronic diastolic (congestive) heart failure (4) Hyponatremia SNOMED Code(s): 12214185 Code(s): E87.1 - HYPO-OSMOLALITY AND HYPONATREMIA Status: Chronic Priority: Medium Current Visit: Yes (5) Renal insufficiency SNOMED Code(s): 791561423, 894694941 Code(s): N28.9 - DISORDER OF KIDNEY AND URETER, UNSPECIFIED Status: Chronic Priority: High Current Visit: Yes (6) Traumatic brain injury SNOMED Code(s): 507391868 Code(s): S06.9X9A - UNSP INTRACRANIAL INJURY W LOC OF UNSP DURATION, INIT Status: Chronic Priority: Low Current Visit: Yes Qualifiers: Encounter type: subsequent encounter Loss of consciousness presence/ duration: with LOC of unspecified duration Qualified Code(s): S06.9X9D - Unspecified intracranial injury with loss of consciousness of unspecified duration, subsequent encounter (7) Type 2 diabetes mellitus SNOMED Code(s): 78659000 Code(s): E11.9 - TYPE 2 DIABETES MELLITUS WITHOUT COMPLICATIONS Status: Chronic Priority: Medium Current Visit: Yes Qualifiers: Diabetes mellitus detention insulin use: unspecified detention insulin use status Diabetes mellitus complication status: with unspecified complications Qualified Code(s): E11.8 - Type 2 diabetes mellitus with unspecified complications - Problem List Review Problem List Initiated/Reviewed/Updated: Yes - My Orders Last 24 Hours: My Active Orders 01/24/18 05:11 C-REACTIVE PROTEIN [CHEM] AM CBC WITH AUTO DIFF [HEME] AM COMPREHENSIVE METABOLIC PN,CMP [CHEM] AM LACTIC ACID [CHEM] AM MAGNESIUM [CHEM] AM 01/24/18 08:00 PRO B-TYPE NATRIUR PEPT,BNPPRO [CHEM] DAILY - Plan Plan:: I/P: Acute: Fracture of proximal end of femur, s/p fall ; POD 2: IM paul placement for left femoral shaft fracture -Pain controlled -Stable condition -Pain medication PRN -Bedrest, PT/OT after surgery -Continue supportive care Hyponatremia -Na 130--> 132 -Monitor Hyperemesis--resolved -Risk factor: chemotherapy -Zofran Q4H -IV lactated ringers Chronic: Anemia, Thrombocytopenia -RBC 3.25-->3.07, Hgb 10.4-->9.6, HCT 30.3-->29.1, RDW 51.2-->51.3, Plt 135-- >168 -Monitor -Blood Type and Screen ordered -Replenish with PRBCs as needed CKD stage III -eGFR 47-->50 -Creatinine 1.7-->1.1 -NS IV started in ED--> D/C and start LR IV -Defer to PCP for f/u Diabetes Type II -Blood Glucose Checks QID -Continue at home Metformin 500mg -Sliding scale Insulin -A1C ordered -ADA diet after surgery -Defer to PCP for f/u CHF -BNP 236-->1891-->1366-->2548-->2782 -Continue at home Lasix 40mg TID -Monitor Traumatic Brain Injury Leukemia --> Continue at home Gleevec 600mg here HTN--home meds restarted Plan: Transfered to Med-Surg telemetry unit She remains stable Continue at home meds as above Consult with Dr. Lanza for surgery Other orders as indicated above CM/SW for discharge planning Routine AM labs Continue PT/OT DVT Prophylaxis: SCD Ready to D/C pending SNF placement for rehabilitation--> Gleevec is causing issues with placement Code Status: Full code (CPR, Defib, Intubation)- However "No life sustaining treatment on machines" -per Sister Beti, Power of Lawn And Garden Technician PCP: Dr. Cespedes LOS > 96hrs due to difficulty with SNF rehabilitation placement
[2018-01-23] MEDS: LOXAPINE 25 MG PO SCH (18:36)
[2018-01-23] MEDS: traZODone 50 MG Tab PO SCH (20:06)
[2018-01-23] MEDS: Temazepam 7.5 MG Cap PO SCH (20:06)
[2018-01-23] MEDS: Simvastatin 10 MG Tab PO SCH (20:06)
[2018-01-23] MEDS: Losartan 100 MG Tab PO SCH (20:09)
[2018-01-24] MEDS: traMADol 50 MG Tab PO SCH ×3 (02:02→18:44)
[2018-01-24] MEDS: Insulin Aspart 100 Units/ML 3 ML Pen SUBCUT SCH ×4 (06:22→21:30)
[2018-01-24] MEDS: Levothyroxine 100 MCG Tab PO SCH (06:22)
[2018-01-24] MEDS: Hypromellose 0.5% Ophth Soln 15 ML Bottle EYEBOTH SCH ×2 (09:27→21:25)
[2018-01-24] MEDS: Spironolactone 25 MG Tab PO SCH (09:27)
[2018-01-24] MEDS: Docusate Sodium 100 MG Cap PO SCH ×2 (09:27→21:29)
[2018-01-24] MEDS: Famotidine 20 MG Tab PO SCH (09:27)
[2018-01-24] MEDS: Furosemide 40 MG Tab PO SCH (09:28)
[2018-01-24] MEDS: Memantine 10 MG Tab PO SCH (09:28)
[2018-01-24] MEDS: IMATINIB MESYLATE 600 MG PO SCH (09:29)
[2018-01-24] MEDS: Enoxaparin 40 MG/0.4 ML Syringe SUBCUT SCH (09:29)
[2018-01-24] MEDS: Metoprolol Succinate 25 MG Tab.ER PO SCH (09:31)
[2018-01-24] MEDS: cloNIDine 0.1 MG Tab PO SCH ×2 (09:32→21:27)
--- NOTE | 2018-01-24 09:46 | PCM.SURGPN ---
- General Info Date of Service: 01/24/18 POD#: 4 Functional Status: Reports: Pain Controlled, Tolerating Diet, Ambulating, Urinating - Review of Systems Musculoskeletal: Reports: Other (The pt was working with therapy and was able to stand and ambulate a short distance with assistance of 2.) - Patient Data Vitals - Most Recent: Last Vital Signs Temp 97.3 F 01/24/18 00:00 Pulse 101 H 01/24/18 09:31 Resp 16 01/24/18 08:00 BP 145/46 H 01/24/18 09:32 Pulse Ox 98 01/24/18 08:00 Weight - Most Recent: 193 lb I&O - Last 24 Hours: Intake & Output 01/23/18 01/24/18 01/24/18 22:59 06:59 14:59 Intake Total 1160 300 Output Total 1400 1100 Balance -240 -800 Lab Results Last 24 Hrs: Laboratory Results - last 24 hr 01/23/18 01/23/18 01/23/18 Range/Units 11:55 17:14 20:05 WBC (3.98-10.04) K/mm3 RBC (3.98-5.22) M/mm3 Hgb (11.2-15.7) gm/L Hct (34.1-44.9) % MCV (79.4-94.8) fl MCH (25.6-32.2) pg MCHC (32.2-35.5) g/dl RDW Std Deviation (36.4-46.3) fL Plt Count (182-369) K/mm3 MPV (9.4-12.3) fl Neut % (Auto) (34.0-71.1) % Lymph % (Auto) (19.3-51.7) % Morgan % (Auto) (4.7-12.5) % Eos % (Auto) (0.7-5.8) Baso % (Auto) (0.1-1.2) % Neut # (Auto) (1.56-6.13) K/mm3 Lymph # (Auto) (1.18-3.74) K/mm3 Morgan # (Auto) (0.24-0.36) K/mm3 Eos # (Auto) (0.04-0.36) K/mm3 Baso # (Auto) (0.01-0.08) K/mm3 Sodium (136-145) mEq/L Potassium (3.5-5.1) mEq/L Chloride (98-107) mEq/L Carbon Dioxide (21-32) mEq/L Anion Gap (5-15) BUN (7-18) mg/dL Creatinine (0.55-1.02) mg/dL Est Cr Clr Drug Dosing mL/min Estimated GFR (MDRD) (>60) mL/min BUN/Creatinine Ratio (14-18) Glucose (80-115) mg/dL POC Glucose 196 H 147 H 199 H (80-115) mg/dL Lactic Acid (0.4-2.0) mmol/L Calcium (8.5-10.1) mg/dL Magnesium (1.8-2.4) mg/dl Total Bilirubin (0.2-1.0) mg/dL AST (15-37) U/L ALT (14-59) U/L Alkaline Phosphatase (46-116) U/L C-Reactive Protein (<1.0) mg/dL NT-Pro-B Natriuret Pep (0-125) pg/mL Total Protein (6.4-8.2) g/dl Albumin (3.4-5.0) g/dl Globulin gm/dL Albumin/Globulin Ratio (1-2) 01/24/18 01/24/18 01/24/18 Range/Units 05:11 05:11 05:11 WBC 8.32 (3.98-10.04) K/mm3 RBC 2.96 L (3.98-5.22) M/mm3 Hgb 9.4 L (11.2-15.7) gm/L Hct 28.7 L (34.1-44.9) % MCV 97.0 H (79.4-94.8) fl MCH 31.8 (25.6-32.2) pg MCHC 32.8 (32.2-35.5) g/dl RDW Std Deviation 51.8 H (36.4-46.3) fL Plt Count 173 L (182-369) K/mm3 MPV 9.3 L (9.4-12.3) fl Neut % (Auto) 62.6 (34.0-71.1) % Lymph % (Auto) 21.3 (19.3-51.7) % Morgan % (Auto) 10.7 (4.7-12.5) % Eos % (Auto) 4.9 (0.7-5.8) Baso % (Auto) 0.4 (0.1-1.2) % Neut # (Auto) 5.21 (1.56-6.13) K/mm3 Lymph # (Auto) 1.77 (1.18-3.74) K/mm3 Morgan # (Auto) 0.89 H (0.24-0.36) K/mm3 Eos # (Auto) 0.41 H (0.04-0.36) K/mm3 Baso # (Auto) 0.03 (0.01-0.08) K/mm3 Sodium 130 L (136-145) mEq/L Potassium 4.5 (3.5-5.1) mEq/L Chloride 97 L (98-107) mEq/L Carbon Dioxide 29 (21-32) mEq/L Anion Gap 8.5 (5-15) BUN 34 H (7-18) mg/dL Creatinine 1.2 H (0.55-1.02) mg/dL Est Cr Clr Drug Dosing 34.91 mL/min Estimated GFR (MDRD) 46 (>60) mL/min BUN/Creatinine Ratio 28.3 H (14-18) Glucose 150 H (80-115) mg/dL POC Glucose (80-115) mg/dL Lactic Acid (0.4-2.0) mmol/L Calcium 8.3 L (8.5-10.1) mg/dL Magnesium 2.3 (1.8-2.4) mg/dl Total Bilirubin 1.3 H (0.2-1.0) mg/dL AST 58 H (15-37) U/L ALT 26 (14-59) U/L Alkaline Phosphatase 85 (46-116) U/L C-Reactive Protein 3.6 H* (<1.0) mg/dL NT-Pro-B Natriuret Pep 1166 H (0-125) pg/mL Total Protein 6.0 L (6.4-8.2) g/dl Albumin 2.7 L (3.4-5.0) g/dl Globulin 3.3 gm/dL Albumin/Globulin Ratio 0.8 L (1-2) 04/25/18 04/25/18 Range/Units 05:11 06:20 WBC (3.98-10.04) K/mm3 RBC (3.98-5.22) M/mm3 Hgb (11.2-15.7) gm/L Hct (34.1-44.9) % MCV (79.4-94.8) fl MCH (25.6-32.2) pg MCHC (32.2-35.5) g/dl RDW Std Deviation (36.4-46.3) fL Plt Count (182-369) K/mm3 MPV (9.4-12.3) fl Neut % (Auto) (34.0-71.1) % Lymph % (Auto) (19.3-51.7) % Morgan % (Auto) (4.7-12.5) % Eos % (Auto) (0.7-5.8) Baso % (Auto) (0.1-1.2) % Neut # (Auto) (1.56-6.13) K/mm3 Lymph # (Auto) (1.18-3.74) K/mm3 Morgan # (Auto) (0.24-0.36) K/mm3 Eos # (Auto) (0.04-0.36) K/mm3 Baso # (Auto) (0.01-0.08) K/mm3 Sodium (136-145) mEq/L Potassium (3.5-5.1) mEq/L Chloride (98-107) mEq/L Carbon Dioxide (21-32) mEq/L Anion Gap (5-15) BUN (7-18) mg/dL Creatinine (0.55-1.02) mg/dL Est Cr Clr Drug Dosing mL/min Estimated GFR (MDRD) (>60) mL/min BUN/Creatinine Ratio (14-18) Glucose (80-115) mg/dL POC Glucose 155 H (80-115) mg/dL Lactic Acid 1.1 (0.4-2.0) mmol/L Calcium (8.5-10.1) mg/dL Magnesium (1.8-2.4) mg/dl Total Bilirubin (0.2-1.0) mg/dL AST (15-37) U/L ALT (14-59) U/L Alkaline Phosphatase (46-116) U/L C-Reactive Protein (<1.0) mg/dL NT-Pro-B Natriuret Pep (0-125) pg/mL Total Protein (6.4-8.2) g/dl Albumin (3.4-5.0) g/dl Globulin gm/dL Albumin/Globulin Ratio (1-2) Med Orders - Current: Current Medications Acetaminophen (Tylenol) 650 mg PO Q6H PRN PRN Reason: Pain/Fever Last Admin: 01/20/18 08:27 Dose: 650 mg Hydrocodone Bitart/Acetaminophen ([place] 325-5 Mg) 1 - 2 tab PO Q4H PRN PRN Reason: Pain Last Admin: 01/23/18 09:43 Dose: 2 tab Albuterol (Proventil Neb Soln) 2.5 mg NEB Q2H PRN PRN Reason: Shortness Of Breath/wheezing Albuterol/Ipratropium (Duoneb 3.0-0.5 Mg/3 Ml) 3 ml NEB Q4H PRN PRN Reason: Shortness Of Breath/wheezing Artificial Tears (Isopto Tears 0.5% Ophth Soln) 0 ml EYEBOTH BID [facility] Last Admin: 01/24/18 09:27 Dose: 1 drop Bisacodyl (Dulcolax) 5 mg PO DAILY PRN PRN Reason: Constipation Last Admin: 01/22/18 09:35 Dose: 5 mg Clonidine HCl (Catapres) 0.3 mg PO BID [facility] Last Admin: 01/24/18 09:32 Dose: 0.3 mg Cyclobenzaprine HCl (Flexeril) 10 mg PO TID PRN PRN Reason: Muscle Spasm Last Admin: 01/23/18 09:43 Dose: 10 mg Dextrose/Water (Dextrose 50% In Water) 50 ml IVPUSH ASDIRECTED PRN PRN Reason: Hypoglycemia Diphenhydramine HCl (Benadryl) 25 mg IVPUSH Q6H PRN PRN Reason: Pruritis Last Admin: 01/20/18 23:35 Dose: 25 mg Docusate Sodium (Colace) 100 mg PO BID PRN PRN Reason: Constipation Docusate Sodium (Colace) 100 mg PO BID [facility] Last Admin: 01/24/18 09:27 Dose: 100 mg Enoxaparin Sodium (Lovenox) 40 mg SUBCUT DAILY [facility] Last Admin: 01/24/18 09:29 Dose: 40 mg Famotidine (Pepcid) 20 mg PO DAILY [facility] Last Admin: 01/24/18 09:27 Dose: 20 mg Furosemide (Lasix) 40 mg PO DAILY [facility] Last Admin: 01/24/18 09:28 Dose: 40 mg Hydralazine HCl (Apresoline) 20 mg IVPUSH Q6H PRN PRN Reason: Hypertension Last Admin: 01/23/18 02:14 Dose: 20 mg Hydromorphone HCl (Dilaudid) 0.5 mg IVPUSH Q4H PRN PRN Reason: Pain Last Admin: 01/22/18 22:28 Dose: 0.5 mg Insulin Aspart (Novolog) 0 unit SUBCUT QIDACANDBED [facility]; Protocol Last Admin: 01/24/18 06:22 Dose: 1 unit Levothyroxine Sodium (Synthroid) 100 mcg PO DAILY@0600 [facility] Last Admin: 01/24/18 06:22 Dose: 100 mcg Losartan Potassium (Cozaar) 100 mg PO BEDTIME [facility] Last Admin: 01/23/18 20:09 Dose: 100 mg Magnesium Hydroxide (Milk Of Magnesia) 30 ml PO Q12H PRN PRN Reason: Constipation Last Admin: 01/22/18 18:14 Dose: 30 ml Memantine (Namenda) 5 mg PO DAILY [facility] Last Admin: 01/24/18 09:28 Dose: 5 mg Metformin HCl (Glucophage) 500 mg PO BIDMEALS [facility] Metoprolol Succinate (Toprol Xl) 25 mg PO DAILY [facility] Last Admin: 01/24/18 09:31 Dose: 25 mg Metoprolol Tartrate (Lopressor) 5 mg IVPUSH Q4H PRN PRN Reason: Hypertension Last Admin: 01/21/18 09:45 Dose: 5 mg Naloxone HCl (Narcan) 0.1 mg IVPUSH Q5M PRN PRN Reason: Oversedation Ondansetron HCl (Zofran) 4 mg IVPUSH Q4H PRN PRN Reason: Nausea/Vomiting Last Admin: 01/20/18 23:35 Dose: 4 mg Imatinib Mesylate [ (Gleevec] 600 Mg) 0 each PO DAILY [facility] Last Admin: 01/24/18 09:29 Dose: 600 each Loxapine 50 Mg 0 each PO BEDTIME [facility] Last Admin: 01/23/18 20:10 Dose: 50 each Loxapine 25 Mg 0 each PO DAILY@1800 [facility] Last Admin: 01/23/18 18:36 Dose: 1 each Polyethylene Glycol (Miralax) 17 gm PO DAILY PRN PRN Reason: Constipation Senna/Docusate Sodium (Senna Plus) 1 tab PO BID PRN PRN Reason: Constipation Simvastatin (Zocor) 10 mg PO BEDTIME [facility] Last Admin: 01/23/18 20:06 Dose: 10 mg Sodium Chloride (Saline Flush) 10 ml FLUSH ONETIME PRN PRN Reason: IV FLUSH Last Admin: 01/21/18 18:06 Dose: 10 ml Spironolactone (Aldactone) 25 mg PO DAILY [facility] Last Admin: 01/24/18 09:27 Dose: 25 mg Temazepam (Restoril) 7.5 mg PO BEDTIME [facility] Last Admin: 01/23/18 20:06 Dose: 7.5 mg Tramadol HCl (Ultram) 50 mg PO Q8H [facility] Last Admin: 01/24/18 02:02 Dose: 50 mg Trazodone HCl (Trazodone) 100 mg PO BEDTIME [facility] Last Admin: 01/23/18 20:06 Dose: 100 mg Discontinued Medications Albuterol (Proventil Neb Soln) 2.5 mg NEB ONETIME ONE Stop: 01/20/18 13:58 Last Admin: 01/20/18 19:13 Dose: Not Given Artificial Tears (Isopto Tears 0.5% Ophth Soln) 0 ml EYEBOTH BID [facility] Last Admin: 01/19/18 15:00 Dose: Not Given Artificial Tears (Isopto Tears 0.5% Ophth Soln) 0 ml EYEBOTH BID [facility] Last Admin: 01/19/18 14:20 Dose: 1 drop Bisacodyl (Dulcolax) 10 mg RECTAL ONETIME ONE Stop: 01/23/18 06:12 Last Admin: 01/23/18 06:25 Dose: 10 mg Bupivacaine HCl (Sensorcaine-Mpf 0.75%) Confirm Administered Dose 30 ml .ROUTE .STK-MED ONE Stop: 01/20/18 11:45 Bupivacaine HCl (Marcaine 0.25%) Confirm Administered Dose 30 ml .ROUTE .STK- MED ONE Stop: 01/20/18 12:15 Last Admin: 01/20/18 13:48 Dose: 30 ml Cefazolin Sodium (Ancef) Confirm Administered Dose 2 gm .ROUTE .[facility] ONE Stop: 01/20/18 11:46 Clonidine HCl (Catapres) 0.3 mg PO BID [facility] Clonidine HCl (Catapres) 0.1 mg PO ONETIME ONE Stop: 01/19/18 19:38 Last Admin: 01/19/18 19:59 Dose: 0.1 mg Clonidine HCl (Catapres) 0.1 mg PO Q8H [facility] Last Admin: 01/22/18 04:14 Dose: 0.1 mg Dextrose (Glutose 15) 15 gm PO ASDIRECTED PRN PRN Reason: LOW BS Famotidine (Pepcid) 20 mg PO BID [facility] Last Admin: 01/19/18 13:10 Dose: 20 mg Famotidine (Pepcid) 20 mg PO Q12H [facility] Last Admin: 01/20/18 17:13 Dose: Not Given Famotidine (Pepcid) 20 mg PO BID@0600,1800 [facility] Last Admin: 01/21/18 05:28 Dose: 20 mg Fentanyl (Sublimaze) Confirm Administered Dose 100 mcg .ROUTE .[facility] ONE Stop: 01/20/18 11:46 Fentanyl (Sublimaze) 50 mcg IVPUSH Q5M PRN PRN Reason: Pain Furosemide (Lasix) 40 mg PO TID [facility] Last Admin: 01/19/18 14:19 Dose: 40 mg Furosemide (Lasix) 40 mg PO TID [facility] Furosemide (Lasix) 40 mg PO DAILY [facility] Furosemide (Lasix) 40 mg IVPUSH NOW ONE Stop: 01/20/18 05:01 Last Admin: 01/20/18 06:00 Dose: 40 mg Furosemide (Lasix) 40 mg IVPUSH ONETIME ONE Stop: 01/21/18 12:01 Last Admin: 01/21/18 13:27 Dose: 40 mg Hydromorphone HCl (Dilaudid) 1 mg IVPUSH ONETIME ONE Stop: 01/19/18 05:25 Last Admin: 01/19/18 05:48 Dose: 1 mg Hydromorphone HCl (Dilaudid) 0.5 mg IVPUSH ONETIME ONE Stop: 01/19/18 07:33 Last Admin: 01/19/18 07:53 Dose: 0.5 mg Hydromorphone HCl (Dilaudid) 0.5 mg IM ONETIME ONE Stop: 01/21/18 13:18 Last Admin: 01/21/18 13:15 Dose: Not Given Sodium Chloride (Normal Saline) 1,000 mls @ 250 mls/hr IV ASDIRECTED [facility] Last Admin: 01/19/18 05:47 Dose: 250 mls/hr Lactated Ringer's (Ringers, Lactated) 1,000 mls @ 125 mls/hr IV ASDIRECTED [facility] Last Infusion: 01/20/18 12:30 Dose: 0 mls/hr Vancomycin HCl 1 gm/ Sodium (Chloride) 250 mls @ 250 mls/hr IV ONETIME ONE Stop: 01/20/18 14:14 Last Admin: 01/20/18 19:13 Dose: Not Given Sodium Chloride (Normal Saline) Confirm Administered Dose 100 mls @ as directed .ROUTE .STK-MED ONE Stop: 01/20/18 14:00 Lactated Ringer's (Ringers, Lactated) Confirm Administered Dose 1,000 mls @ as directed .ROUTE .STK-MED ONE Stop: 01/20/18 14:49 Lactated Ringer's (Ringers, Lactated) Confirm Administered Dose 1,000 mls @ as directed .ROUTE .STK-MED ONE Stop: 01/20/18 14:49 Cefazolin Sodium/Dextrose 2 gm (/ Premix) 50 mls @ 100 mls/hr IV Q8H [facility] Stop: 01/21/18 12:29 Last Admin: 01/21/18 11:04 Dose: 100 mls/hr Sodium Chloride (Normal Saline) 500 mls @ 75 mls/hr IV ONETIME ONE Stop: 01/21/18 17:39 Last Admin: 01/21/18 11:44 Dose: 75 mls/hr Iopamidol (Isovue-300 (61%)) 100 ml IVPUSH ONETIME ONE Stop: 01/19/18 15:46 Last Admin: 01/19/18 15:49 Dose: 100 ml Ketamine HCl (Ketalar) Confirm Administered Dose 500 mg .ROUTE .STK-MED ONE Stop: 01/20/18 11:47 Ketorolac Tromethamine (Toradol) 15 mg IVPUSH Q6H [facility] Stop: 01/20/18 17:01 Last Admin: 01/20/18 18:02 Dose: 15 mg Levothyroxine Sodium (Synthroid) 100 mcg PO DAILY [facility] Last Admin: 01/22/18 09:41 Dose: Not Given Lidocaine HCl (Xylocaine-Mpf 1%) Confirm Administered Dose 5 ml .ROUTE .STK-MED ONE Stop: 01/20/18 12:33 Losartan Potassium (Cozaar) 100 mg PO DAILY [facility] Last Admin: 01/19/18 14:19 Dose: 100 mg Metoprolol Succinate (Toprol Xl) 25 mg PO DAILY [facility] Last Admin: 01/19/18 14:14 Dose: 25 mg Midazolam HCl (Versed 1 Mg/Ml) Confirm Administered Dose 2 mg .ROUTE .STK-MED ONE Stop: 01/20/18 11:46 Midazolam HCl (Versed 1 Mg/Ml) Confirm Administered Dose 2 mg .ROUTE .STK-MED ONE Stop: 01/20/18 13:28 Morphine Sulfate (Duramorph Pf) Confirm Administered Dose 1 mg .ROUTE .STK-MED ONE Stop: 01/20/18 12:28 Naloxone HCl (Narcan) 0.5 mg IVPUSH ONETIME ONE Stop: 01/19/18 17:04 Last Admin: 01/19/18 17:28 Dose: 0.5 mg Non-Formulary Medication (Acetaminophen) 650 mg PO Q8H PRN PRN Reason: Pain Ondansetron HCl (Zofran) 4 mg IVPUSH ONETIME ONE Stop: 01/19/18 05:25 Last Admin: 01/19/18 05:47 Dose: 4 mg Ondansetron HCl (Zofran) 4 mg IVPUSH ONETIME PRN PRN Reason: Nausea/Vomiting Ondansetron HCl (Zofran) Confirm Administered Dose 4 mg .ROUTE .STK-MED ONE Stop: 01/20/18 14:49 Pantoprazole Sodium (Protonix Iv) 40 mg IVPUSH DAILY [facility] Pantoprazole Sodium (Protonix Iv) 40 mg IVPUSH BID [facility] Last Admin: 01/20/18 09:37 Dose: 40 mg Loxapine 25 Mg 0 each PO DAILY@1400 [facility] Last Admin: 01/19/18 15:00 Dose: Not Given Phenylephrine HCl (Rodney-Synephrine) Confirm Administered Dose 10 mg .ROUTE .STK- MED ONE Stop: 01/20/18 14:00 Phenylephrine HCl (Phenylephrine In Ns 100 Mcg/Ml) Confirm Administered Dose 1 mg .ROUTE .STK-MED ONE Stop: 01/20/18 14:01 Propofol (Diprivan 20 Ml) Confirm Administered Dose 600 mg .ROUTE .STK-MED ONE Stop: 01/20/18 11:46 Temazepam (Restoril) 30 mg PO BEDTIME [facility] - Exam Wound/Incisions: Other (Shadowing on Aquacels outlined.) Extremities: Other (Active left hip and knee motion noted. The pt was able to stand and bear weight thru LLE.) - Problem List Review Problem List Initiated/Reviewed/Updated: Yes - My Orders Last 24 Hours: Active Orders 24 hr Category Date Time Status Communication Order [RC] PRN Care 01/23/18 13:55 Active Enema [RC] ASDIRECTED Care 01/23/18 13:55 Active C-REACTIVE PROTEIN [CHEM] AM Lab 01/25/18 05:11 Ordered C-REACTIVE PROTEIN [CHEM] AM Lab 01/26/18 05:11 Ordered C-REACTIVE PROTEIN [CHEM] AM Lab 01/27/18 05:11 Ordered C-REACTIVE PROTEIN [CHEM] AM Lab 01/28/18 05:11 Ordered CBC WITH AUTO DIFF [HEME] AM Lab 01/25/18 05:11 Ordered CBC WITH AUTO DIFF [HEME] AM Lab 01/26/18 05:11 Ordered CBC WITH AUTO DIFF [HEME] AM Lab 01/27/18 05:11 Ordered CBC WITH AUTO DIFF [HEME] AM Lab 01/28/18 05:11 Ordered COMPREHENSIVE METABOLIC PN,CMP [CHEM] AM Lab 01/25/18 05:11 Ordered COMPREHENSIVE METABOLIC PN,CMP [CHEM] AM Lab 01/26/18 05:11 Ordered COMPREHENSIVE METABOLIC PN,CMP [CHEM] AM Lab 01/27/18 05:11 Ordered COMPREHENSIVE METABOLIC PN,CMP [CHEM] AM Lab 01/28/18 05:11 Ordered LACTIC ACID [CHEM] AM Lab 01/25/18 05:11 Ordered LACTIC ACID [CHEM] AM Lab 01/26/18 05:11 Ordered LACTIC ACID [CHEM] AM Lab 01/27/18 05:11 Ordered LACTIC ACID [CHEM] AM Lab 01/28/18 05:11 Ordered MAGNESIUM [CHEM] AM Lab 01/25/18 05:11 Ordered MAGNESIUM [CHEM] AM Lab 01/26/18 05:11 Ordered MAGNESIUM [CHEM] AM Lab 01/27/18 05:11 Ordered MAGNESIUM [CHEM] AM Lab 01/28/18 05:11 Ordered PRO B-TYPE NATRIUR PEPT,BNPPRO [CHEM] DAILY Lab 01/25/18 14:45 Ordered PRO B-TYPE NATRIUR PEPT,BNPPRO [CHEM] DAILY Lab 01/26/18 14:45 Ordered PRO B-TYPE NATRIUR PEPT,BNPPRO [CHEM] DAILY Lab 01/27/18 14:45 Ordered PRO B-TYPE NATRIUR PEPT,BNPPRO [CHEM] DAILY Lab 01/28/18 14:45 Ordered UA W/MICROSCOPIC [URIN] Routine Lab 01/24/18 09:25 Ordered Medication Orders Acetaminophen (Tylenol) 650 mg PO Q6H PRN PRN Reason: Pain/Fever Last Admin: 01/20/18 08:27 Dose: 650 mg Admin: 01/19/18 19:01 Dose: 650 mg Hydrocodone Bitart/Acetaminophen ([place] 325-5 Mg) 1 - 2 tab PO Q4H PRN PRN Reason: Pain Last Admin: 01/23/18 09:43 Dose: 2 tab Admin: 01/22/18 09:18 Dose: 2 tab Admin: 01/21/18 15:20 Dose: 2 tab Admin: 01/21/18 07:33 Dose: 2 tab Admin: 01/21/18 00:05 Dose: 2 tab Albuterol (Proventil Neb Soln) 2.5 mg NEB Q2H PRN PRN Reason: Shortness Of Breath/wheezing Albuterol/Ipratropium (Duoneb 3.0-0.5 Mg/3 Ml) 3 ml NEB Q4H PRN PRN Reason: Shortness Of Breath/wheezing Artificial Tears (Isopto Tears 0.5% Ophth Soln) 0 ml EYEBOTH BID [facility] Last Admin: 01/24/18 09:27 Dose: 1 drop Admin: 01/23/18 20:07 Dose: 1 drop Admin: 01/23/18 09:19 Dose: 1 drop Admin: 01/22/18 20:37 Dose: 2 drop Admin: 01/22/18 09:34 Dose: 1 drop Admin: 01/21/18 20:36 Dose: 1 drop Admin: 01/21/18 08:11 Dose: 1 drop Admin: 01/20/18 20:47 Dose: 1 drop Admin: 01/20/18 09:37 Dose: 1 drop Admin: 01/19/18 20:00 Dose: 1 drop Bisacodyl (Dulcolax) 5 mg PO DAILY PRN PRN Reason: Constipation Last Admin: 01/22/18 09:35 Dose: 5 mg Clonidine HCl (Catapres) 0.3 mg PO BID [facility] Last Admin: 01/24/18 09:32 Dose: 0.3 mg Admin: 01/23/18 20:06 Dose: 0.3 mg Admin: 01/23/18 09:20 Dose: 0.3 mg Admin: 01/22/18 20:35 Dose: 0.3 mg Admin: 01/22/18 09:34 Dose: 0.3 mg Cyclobenzaprine HCl (Flexeril) 10 mg PO TID PRN PRN Reason: Muscle Spasm Last Admin: 01/23/18 09:43 Dose: 10 mg Admin: 01/22/18 09:20 Dose: 10 mg Admin: 01/21/18 16:57 Dose: 10 mg Admin: 01/21/18 05:28 Dose: 10 mg Admin: 01/20/18 02:56 Dose: 10 mg Admin: 01/19/18 19:02 Dose: 10 mg Dextrose/Water (Dextrose 50% In Water) 50 ml IVPUSH ASDIRECTED PRN PRN Reason: Hypoglycemia Diphenhydramine HCl (Benadryl) 25 mg IVPUSH Q6H PRN PRN Reason: Pruritis Last Admin: 01/20/18 23:35 Dose: 25 mg Docusate Sodium (Colace) 100 mg PO BID PRN PRN Reason: Constipation Docusate Sodium (Colace) 100 mg PO BID [facility] Last Admin: 01/24/18 09:27 Dose: 100 mg Admin: 01/23/18 20:07 Dose: 100 mg Admin: 01/23/18 09:23 Dose: 100 mg Admin: 01/22/18 20:36 Dose: 100 mg Admin: 01/22/18 09:34 Dose: 100 mg Admin: 01/21/18 20:34 Dose: 100 mg Admin: 01/21/18 08:10 Dose: 100 mg Admin: 01/20/18 20:46 Dose: 100 mg Enoxaparin Sodium (Lovenox) 40 mg SUBCUT DAILY [facility] Last Admin: 01/24/18 09:29 Dose: 40 mg Admin: 01/23/18 09:24 Dose: 40 mg Admin: 01/22/18 09:36 Dose: 40 mg Admin: 01/21/18 08:11 Dose: 40 mg Famotidine (Pepcid) 20 mg PO DAILY [facility] Last Admin: 01/24/18 09:27 Dose: 20 mg Admin: 01/23/18 09:20 Dose: 20 mg Admin: 01/22/18 09:35 Dose: 20 mg Furosemide (Lasix) 40 mg PO DAILY [facility] Last Admin: 01/24/18 09:28 Dose: 40 mg Admin: 01/23/18 09:23 Dose: 40 mg Admin: 01/22/18 09:35 Dose: 40 mg Admin: 01/21/18 08:10 Dose: 40 mg Hydralazine HCl (Apresoline) 20 mg IVPUSH Q6H PRN PRN Reason: Hypertension Last Admin: 01/23/18 02:14 Dose: 20 mg Admin: 01/20/18 08:57 Dose: 20 mg Admin: 01/19/18 17:28 Dose: 20 mg Hydromorphone HCl (Dilaudid) 0.5 mg IVPUSH Q4H PRN PRN Reason: Pain Last Admin: 01/22/18 22:28 Dose: 0.5 mg Admin: 01/21/18 18:07 Dose: 0.5 mg Admin: 01/21/18 13:22 Dose: 0.5 mg Admin: 01/19/18 21:15 Dose: 0.5 mg Insulin Aspart (Novolog) 0 unit SUBCUT QIDACANDBED [facility]; Protocol Last Admin: 01/24/18 06:22 Dose: 1 unit Admin: 01/23/18 23:22 Dose: 1 unit Admin: 01/23/18 17:15 Dose: Not Given Admin: 01/23/18 11:56 Dose: 1 unit Admin: 01/23/18 06:31 Dose: 1 unit Admin: 01/22/18 22:22 Dose: 1 unit Admin: 01/22/18 16:43 Dose: Not Given Admin: 01/22/18 11:44 Dose: 2 unit Admin: 01/22/18 06:15 Dose: Not Given Admin: 01/21/18 21:20 Dose: 1 unit Admin: 01/21/18 16:56 Dose: 1 unit Admin: 01/21/18 11:14 Dose: 1 unit Admin: 01/21/18 06:07 Dose: Not Given Admin: 01/20/18 22:07 Dose: 1 unit Admin: 01/20/18 17:58 Dose: Not Given Admin: 01/20/18 12:02 Dose: Not Given Admin: 01/20/18 07:33 Dose: Admin: 01/19/18 21:10 Dose: Admin: 01/19/18 17:54 Dose: Not Given Levothyroxine Sodium (Synthroid) 100 mcg PO DAILY@0600 [facility] Last Admin: 01/24/18 06:22 Dose: 100 mcg Admin: 01/23/18 05:41 Dose: 100 mcg Admin: 01/22/18 06:04 Dose: 100 mcg Admin: 01/21/18 05:28 Dose: 100 mcg Admin: 01/20/18 06:35 Dose: 100 mcg Admin: 01/19/18 14:19 Dose: 100 mcg Losartan Potassium (Cozaar) 100 mg PO BEDTIME [facility] Last Admin: 01/23/18 20:09 Dose: 100 mg Admin: 01/22/18 20:36 Dose: 100 mg Magnesium Hydroxide (Milk Of Magnesia) 30 ml PO Q12H PRN PRN Reason: Constipation Last Admin: 01/22/18 18:14 Dose: 30 ml Memantine (Namenda) 5 mg PO DAILY [facility] Last Admin: 01/24/18 09:28 Dose: 5 mg Admin: 01/23/18 09:23 Dose: 5 mg Admin: 01/22/18 09:36 Dose: 5 mg Admin: 01/21/18 08:10 Dose: 5 mg Admin: 01/20/18 09:37 Dose: 5 mg Admin: 01/19/18 14:19 Dose: 5 mg Metformin HCl (Glucophage) 500 mg PO BIDMEALS [facility] Metoprolol Succinate (Toprol Xl) 25 mg PO DAILY [facility] Last Admin: 01/24/18 09:31 Dose: 25 mg Admin: 01/23/18 09:23 Dose: 25 mg Admin: 01/22/18 09:35 Dose: 25 mg Metoprolol Tartrate (Lopressor) 5 mg IVPUSH Q4H PRN PRN Reason: Hypertension Last Admin: 01/21/18 09:45 Dose: 5 mg Admin: 01/19/18 18:03 Dose: 5 mg Naloxone HCl (Narcan) 0.1 mg IVPUSH Q5M PRN PRN Reason: Oversedation Ondansetron HCl (Zofran) 4 mg IVPUSH Q4H PRN PRN Reason: Nausea/Vomiting Last Admin: 01/20/18 23:35 Dose: 4 mg Admin: 01/20/18 16:53 Dose: 4 mg Admin: 01/19/18 21:15 Dose: 4 mg Admin: 01/19/18 13:10 Dose: 4 mg Imatinib Mesylate [ (Gleevec] 600 Mg) 0 each PO DAILY [facility] Last Admin: 01/24/18 09:29 Dose: 600 each Admin: 01/23/18 09:26 Dose: 600 each Admin: 01/22/18 09:38 Dose: 600 each Admin: 01/21/18 08:12 Dose: 600 each Admin: 01/20/18 09:38 Dose: 600 each Loxapine 50 Mg 0 each PO BEDTIME [facility] Last Admin: 01/23/18 20:10 Dose: 50 each Admin: 01/22/18 20:38 Dose: 50 each Admin: 01/21/18 20:37 Dose: 50 each Admin: 01/20/18 20:46 Dose: 50 each Admin: 01/19/18 20:03 Dose: 50 each Loxapine 25 Mg 0 each PO DAILY@1800 [facility] Last Admin: 01/23/18 18:36 Dose: 1 each Admin: 01/22/18 18:13 Dose: 1 each Admin: 01/21/18 18:08 Dose: 1 each Admin: 01/20/18 18:03 Dose: 1 each Admin: 01/19/18 17:40 Dose: 25 each Polyethylene Glycol (Miralax) 17 gm PO DAILY PRN PRN Reason: Constipation Senna/Docusate Sodium (Senna Plus) 1 tab PO BID PRN PRN Reason: Constipation Simvastatin (Zocor) 10 mg PO BEDTIME [facility] Last Admin: 01/23/18 20:06 Dose: 10 mg Admin: 01/22/18 20:36 Dose: 10 mg Admin: 01/21/18 20:34 Dose: 10 mg Admin: 01/20/18 20:46 Dose: 10 mg Admin: 01/19/18 20:01 Dose: 10 mg Sodium Chloride (Saline Flush) 10 ml FLUSH ONETIME PRN PRN Reason: IV FLUSH Last Admin: 01/21/18 18:06 Dose: 10 ml Admin: 01/19/18 15:49 Dose: 10 ml Spironolactone (Aldactone) 25 mg PO DAILY [facility] Last Admin: 01/24/18 09:27 Dose: 25 mg Admin: 01/23/18 09:23 Dose: 25 mg Admin: 01/22/18 09:35 Dose: 25 mg Admin: 01/21/18 08:10 Dose: 25 mg Admin: 01/20/18 09:37 Dose: 25 mg Temazepam (Restoril) 7.5 mg PO BEDTIME [facility] Last Admin: 01/23/18 20:06 Dose: 7.5 mg Admin: 01/22/18 20:35 Dose: 7.5 mg Admin: 01/21/18 20:35 Dose: 7.5 mg Admin: 01/20/18 20:46 Dose: 7.5 mg Admin: 01/19/18 20:02 Dose: 7.5 mg Tramadol HCl (Ultram) 50 mg PO Q8H [facility] Last Admin: 01/24/18 02:02 Dose: 50 mg Admin: 01/23/18 18:36 Dose: 50 mg Admin: 01/23/18 11:56 Dose: 50 mg Admin: 01/23/18 02:14 Dose: 50 mg Admin: 01/22/18 18:13 Dose: 50 mg Admin: 01/22/18 11:43 Dose: 50 mg Admin: 01/22/18 02:55 Dose: 50 mg Admin: 01/21/18 20:37 Dose: 50 mg Admin: 01/21/18 11:02 Dose: 50 mg Admin: 01/21/18 04:20 Dose: 50 mg Admin: 01/20/18 18:03 Dose: 50 mg Admin: 01/20/18 10:33 Dose: 50 mg Admin: 01/20/18 02:56 Dose: 50 mg Admin: 01/19/18 18:04 Dose: 50 mg Admin: 01/19/18 11:17 Dose: 50 mg Trazodone HCl (Trazodone) 100 mg PO BEDTIME [facility] Last Admin: 01/23/18 20:06 Dose: 100 mg Admin: 01/22/18 20:35 Dose: 100 mg Admin: 01/21/18 20:35 Dose: 100 mg Admin: 01/20/18 20:46 Dose: 100 mg Admin: 01/19/18 20:01 Dose: 100 mg - Assessment Assessment (Free Text/Narrative):: POD#4 - IM nail placement for right femur fracture - Plan Plan (Free Text/Narrative):: 1. Orders per Hospitalist service. 2. Discharge to [facility] when placement is available. 3. Continue with therapy. The pt is making progress. The pt's case was discussed with Dr. Lanza.
--- NOTE | 2018-01-24 11:49 | PCM.PN ---
- General Info Date of Service: 01/24/18 Admission Dx/Problem (Free Text): Admission Diagnosis/Problem Admission Diagnosis/Problem Fall at home Subjective Update: In to see Francoise today. She is sitting in a chair. POD 4 s/p left femoral fracture repair. Overall she is doing quite well. She is no longer constipated, the fleet enema given yesterday worked. She has been sleeping well. Good appetite. Ambulating as tolerated with PT. Pain is controlled. No Nausea or vomiting. Urinating. Incentive Spirometry. No concerns from nursing. Will be DC d to SNF for rehab once we are able to get placement. Functional Status: Reports: Pain Controlled, Tolerating Diet, Ambulating, Urinating - Review of Systems General: Reports: No Symptoms. Denies: Fever, Chills HEENT: Reports: No Symptoms Pulmonary: Reports: Shortness of Breath (exertional). Denies: Pleuritic Chest Pain, Cough, Wheezing Cardiovascular: Reports: Dyspnea on Exertion, Edema (L leg, s/p left hip fracture repair). Denies: Chest Pain, Palpitations Gastrointestinal: Reports: No Symptoms. Denies: Abdominal Pain, Constipation, Diarrhea, Nausea, Vomiting Genitourinary: Reports: No Symptoms. Denies: Dysuria, Frequency, Burning, Pain , Urgency Musculoskeletal: Reports: No Symptoms, Joint Pain (s/p left hip fracture repair) Skin: Reports: No Symptoms Neurological: Reports: No Symptoms Psychiatric: Reports: No Symptoms - Patient Data Vitals - Most Recent: Last Vital Signs Temp 97.3 F 01/24/18 00:00 Pulse 101 H 01/24/18 09:31 Resp 16 01/24/18 08:00 BP 145/46 H 01/24/18 09:32 Pulse Ox 98 01/24/18 08:00 Weight - Most Recent: 193 lb I&O - Last 24 Hours: Intake & Output 01/23/18 01/24/18 01/24/18 22:59 06:59 14:59 Intake Total 1160 300 180 Output Total 1400 1100 Balance -240 -800 180 Lab Results Last 24 Hours: Laboratory Results - last 24 hr 01/23/18 01/23/18 01/23/18 Range/Units 11:55 17:14 20:05 WBC (3.98-10.04) K/mm3 RBC (3.98-5.22) M/mm3 Hgb (11.2-15.7) gm/L Hct (34.1-44.9) % MCV (79.4-94.8) fl MCH (25.6-32.2) pg MCHC (32.2-35.5) g/dl RDW Std Deviation (36.4-46.3) fL Plt Count (182-369) K/mm3 MPV (9.4-12.3) fl Neut % (Auto) (34.0-71.1) % Lymph % (Auto) (19.3-51.7) % Terrell % (Auto) (4.7-12.5) % Eos % (Auto) (0.7-5.8) Baso % (Auto) (0.1-1.2) % Neut # (Auto) (1.56-6.13) K/mm3 Lymph # (Auto) (1.18-3.74) K/mm3 Terrell # (Auto) (0.24-0.36) K/mm3 Eos # (Auto) (0.04-0.36) K/mm3 Baso # (Auto) (0.01-0.08) K/mm3 Sodium (136-145) mEq/L Potassium (3.5-5.1) mEq/L Chloride (98-107) mEq/L Carbon Dioxide (21-32) mEq/L Anion Gap (5-15) BUN (7-18) mg/dL Creatinine (0.55-1.02) mg/dL Est Cr Clr Drug Dosing mL/min Estimated GFR (MDRD) (>60) mL/min BUN/Creatinine Ratio (14-18) Glucose (80-115) mg/dL POC Glucose 196 H 147 H 199 H (80-115) mg/dL Lactic Acid (0.4-2.0) mmol/L Calcium (8.5-10.1) mg/dL Magnesium (1.8-2.4) mg/dl Total Bilirubin (0.2-1.0) mg/dL AST (15-37) U/L ALT (14-59) U/L Alkaline Phosphatase (46-116) U/L C-Reactive Protein (<1.0) mg/dL NT-Pro-B Natriuret Pep (0-125) pg/mL Total Protein (6.4-8.2) g/dl Albumin (3.4-5.0) g/dl Globulin gm/dL Albumin/Globulin Ratio (1-2) 01/24/18 01/24/18 01/24/18 Range/Units 05:11 05:11 05:11 WBC 8.32 (3.98-10.04) K/mm3 RBC 2.96 L (3.98-5.22) M/mm3 Hgb 9.4 L (11.2-15.7) gm/L Hct 28.7 L (34.1-44.9) % MCV 97.0 H (79.4-94.8) fl MCH 31.8 (25.6-32.2) pg MCHC 32.8 (32.2-35.5) g/dl RDW Std Deviation 51.8 H (36.4-46.3) fL Plt Count 173 L (182-369) K/mm3 MPV 9.3 L (9.4-12.3) fl Neut % (Auto) 62.6 (34.0-71.1) % Lymph % (Auto) 21.3 (19.3-51.7) % Terrell % (Auto) 10.7 (4.7-12.5) % Eos % (Auto) 4.9 (0.7-5.8) Baso % (Auto) 0.4 (0.1-1.2) % Neut # (Auto) 5.21 (1.56-6.13) K/mm3 Lymph # (Auto) 1.77 (1.18-3.74) K/mm3 Terrell # (Auto) 0.89 H (0.24-0.36) K/mm3 Eos # (Auto) 0.41 H (0.04-0.36) K/mm3 Baso # (Auto) 0.03 (0.01-0.08) K/mm3 Sodium 130 L (136-145) mEq/L Potassium 4.5 (3.5-5.1) mEq/L Chloride 97 L (98-107) mEq/L Carbon Dioxide 29 (21-32) mEq/L Anion Gap 8.5 (5-15) BUN 34 H (7-18) mg/dL Creatinine 1.2 H (0.55-1.02) mg/dL Est Cr Clr Drug Dosing 34.91 mL/min Estimated GFR (MDRD) 46 (>60) mL/min BUN/Creatinine Ratio 28.3 H (14-18) Glucose 150 H (80-115) mg/dL POC Glucose (80-115) mg/dL Lactic Acid (0.4-2.0) mmol/L Calcium 8.3 L (8.5-10.1) mg/dL Magnesium 2.3 (1.8-2.4) mg/dl Total Bilirubin 1.3 H (0.2-1.0) mg/dL AST 58 H (15-37) U/L ALT 26 (14-59) U/L Alkaline Phosphatase 85 (46-116) U/L C-Reactive Protein 3.6 H* (<1.0) mg/dL NT-Pro-B Natriuret Pep 1166 H (0-125) pg/mL Total Protein 6.0 L (6.4-8.2) g/dl Albumin 2.7 L (3.4-5.0) g/dl Globulin 3.3 gm/dL Albumin/Globulin Ratio 0.8 L (1-2) 01/24/18 01/24/18 Range/Units 05:11 06:20 WBC (3.98-10.04) K/mm3 RBC (3.98-5.22) M/mm3 Hgb (11.2-15.7) gm/L Hct (34.1-44.9) % MCV (79.4-94.8) fl MCH (25.6-32.2) pg MCHC (32.2-35.5) g/dl RDW Std Deviation (36.4-46.3) fL Plt Count (182-369) K/mm3 MPV (9.4-12.3) fl Neut % (Auto) (34.0-71.1) % Lymph % (Auto) (19.3-51.7) % Terrell % (Auto) (4.7-12.5) % Eos % (Auto) (0.7-5.8) Baso % (Auto) (0.1-1.2) % Neut # (Auto) (1.56-6.13) K/mm3 Lymph # (Auto) (1.18-3.74) K/mm3 Terrell # (Auto) (0.24-0.36) K/mm3 Eos # (Auto) (0.04-0.36) K/mm3 Baso # (Auto) (0.01-0.08) K/mm3 Sodium (136-145) mEq/L Potassium (3.5-5.1) mEq/L Chloride (98-107) mEq/L Carbon Dioxide (21-32) mEq/L Anion Gap (5-15) BUN (7-18) mg/dL Creatinine (0.55-1.02) mg/dL Est Cr Clr Drug Dosing mL/min Estimated GFR (MDRD) (>60) mL/min BUN/Creatinine Ratio (14-18) Glucose (80-115) mg/dL POC Glucose 155 H (80-115) mg/dL Lactic Acid 1.1 (0.4-2.0) mmol/L Calcium (8.5-10.1) mg/dL Magnesium (1.8-2.4) mg/dl Total Bilirubin (0.2-1.0) mg/dL AST (15-37) U/L ALT (14-59) U/L Alkaline Phosphatase (46-116) U/L C-Reactive Protein (<1.0) mg/dL NT-Pro-B Natriuret Pep (0-125) pg/mL Total Protein (6.4-8.2) g/dl Albumin (3.4-5.0) g/dl Globulin gm/dL Albumin/Globulin Ratio (1-2) Med Orders - Current: Current Medications Acetaminophen (Tylenol) 650 mg PO Q6H PRN PRN Reason: Pain/Fever Last Admin: 01/20/18 08:27 Dose: 650 mg Hydrocodone Bitart/Acetaminophen ([place] 325-5 Mg) 1 - 2 tab PO Q4H PRN PRN Reason: Pain Last Admin: 01/23/18 09:43 Dose: 2 tab Albuterol (Proventil Neb Soln) 2.5 mg NEB Q2H PRN PRN Reason: Shortness Of Breath/wheezing Albuterol/Ipratropium (Duoneb 3.0-0.5 Mg/3 Ml) 3 ml NEB Q4H PRN PRN Reason: Shortness Of Breath/wheezing Artificial Tears (Isopto Tears 0.5% Ophth Soln) 0 ml EYEBOTH BID [facility] Last Admin: 01/24/18 09:27 Dose: 1 drop Bisacodyl (Dulcolax) 5 mg PO DAILY PRN PRN Reason: Constipation Last Admin: 01/22/18 09:35 Dose: 5 mg Clonidine HCl (Catapres) 0.3 mg PO BID [facility] Last Admin: 01/24/18 09:32 Dose: 0.3 mg Cyclobenzaprine HCl (Flexeril) 10 mg PO TID PRN PRN Reason: Muscle Spasm Last Admin: 01/23/18 09:43 Dose: 10 mg Dextrose/Water (Dextrose 50% In Water) 50 ml IVPUSH ASDIRECTED PRN PRN Reason: Hypoglycemia Diphenhydramine HCl (Benadryl) 25 mg IVPUSH Q6H PRN PRN Reason: Pruritis Last Admin: 01/20/18 23:35 Dose: 25 mg Docusate Sodium (Colace) 100 mg PO BID PRN PRN Reason: Constipation Docusate Sodium (Colace) 100 mg PO BID [facility] Last Admin: 01/24/18 09:27 Dose: 100 mg Enoxaparin Sodium (Lovenox) 40 mg SUBCUT DAILY [facility] Last Admin: 01/24/18 09:29 Dose: 40 mg Famotidine (Pepcid) 20 mg PO DAILY [facility] Last Admin: 01/24/18 09:27 Dose: 20 mg Furosemide (Lasix) 40 mg PO DAILY [facility] Last Admin: 01/24/18 09:28 Dose: 40 mg Hydralazine HCl (Apresoline) 20 mg IVPUSH Q6H PRN PRN Reason: Hypertension Last Admin: 01/23/18 02:14 Dose: 20 mg Hydromorphone HCl (Dilaudid) 0.5 mg IVPUSH Q4H PRN PRN Reason: Pain Last Admin: 01/22/18 22:28 Dose: 0.5 mg Insulin Aspart (Novolog) 0 unit SUBCUT QIDACANDBED [facility]; Protocol Last Admin: 01/24/18 06:22 Dose: 1 unit Levothyroxine Sodium (Synthroid) 100 mcg PO DAILY@0600 [facility] Last Admin: 01/24/18 06:22 Dose: 100 mcg Losartan Potassium (Cozaar) 100 mg PO BEDTIME [facility] Last Admin: 01/23/18 20:09 Dose: 100 mg Magnesium Hydroxide (Milk Of Magnesia) 30 ml PO Q12H PRN PRN Reason: Constipation Last Admin: 01/22/18 18:14 Dose: 30 ml Memantine (Namenda) 5 mg PO DAILY [facility] Last Admin: 01/24/18 09:28 Dose: 5 mg Metformin HCl (Glucophage) 500 mg PO BIDMEALS [facility] Metoprolol Succinate (Toprol Xl) 25 mg PO DAILY [facility] Last Admin: 01/24/18 09:31 Dose: 25 mg Metoprolol Tartrate (Lopressor) 5 mg IVPUSH Q4H PRN PRN Reason: Hypertension Last Admin: 01/21/18 09:45 Dose: 5 mg Naloxone HCl (Narcan) 0.1 mg IVPUSH Q5M PRN PRN Reason: Oversedation Ondansetron HCl (Zofran) 4 mg IVPUSH Q4H PRN PRN Reason: Nausea/Vomiting Last Admin: 01/20/18 23:35 Dose: 4 mg Imatinib Mesylate [ (Gleevec] 600 Mg) 0 each PO DAILY [facility] Last Admin: 01/24/18 09:29 Dose: 600 each Loxapine 50 Mg 0 each PO BEDTIME [facility] Last Admin: 01/23/18 20:10 Dose: 50 each Loxapine 25 Mg 0 each PO DAILY@1800 [facility] Last Admin: 01/23/18 18:36 Dose: 1 each Polyethylene Glycol (Miralax) 17 gm PO DAILY PRN PRN Reason: Constipation Senna/Docusate Sodium (Senna Plus) 1 tab PO BID PRN PRN Reason: Constipation Simvastatin (Zocor) 10 mg PO BEDTIME [facility] Last Admin: 01/23/18 20:06 Dose: 10 mg Sodium Chloride (Saline Flush) 10 ml FLUSH ONETIME PRN PRN Reason: IV FLUSH Last Admin: 01/21/18 18:06 Dose: 10 ml Spironolactone (Aldactone) 25 mg PO DAILY [facility] Last Admin: 01/24/18 09:27 Dose: 25 mg Temazepam (Restoril) 7.5 mg PO BEDTIME [facility] Last Admin: 01/23/18 20:06 Dose: 7.5 mg Tramadol HCl (Ultram) 50 mg PO Q8H [facility] Last Admin: 01/24/18 02:02 Dose: 50 mg Trazodone HCl (Trazodone) 100 mg PO BEDTIME [facility] Last Admin: 01/23/18 20:06 Dose: 100 mg Discontinued Medications Albuterol (Proventil Neb Soln) 2.5 mg NEB ONETIME ONE Stop: 01/20/18 13:58 Last Admin: 01/20/18 19:13 Dose: Not Given Artificial Tears (Isopto Tears 0.5% Ophth Soln) 0 ml EYEBOTH BID [facility] Last Admin: 01/19/18 15:00 Dose: Not Given Artificial Tears (Isopto Tears 0.5% Ophth Soln) 0 ml EYEBOTH BID [facility] Last Admin: 01/19/18 14:20 Dose: 1 drop Bisacodyl (Dulcolax) 10 mg RECTAL ONETIME ONE Stop: 01/23/18 06:12 Last Admin: 01/23/18 06:25 Dose: 10 mg Bupivacaine HCl (Sensorcaine-Mpf 0.75%) Confirm Administered Dose 30 ml .ROUTE .STK-MED ONE Stop: 01/20/18 11:45 Bupivacaine HCl (Marcaine 0.25%) Confirm Administered Dose 30 ml .ROUTE .STK- MED ONE Stop: 01/20/18 12:15 Last Admin: 01/20/18 13:48 Dose: 30 ml Cefazolin Sodium (Ancef) Confirm Administered Dose 2 gm .ROUTE .STK-MED ONE Stop: 01/20/18 11:46 Clonidine HCl (Catapres) 0.3 mg PO BID [facility] Clonidine HCl (Catapres) 0.1 mg PO ONETIME ONE Stop: 01/19/18 19:38 Last Admin: 01/19/18 19:59 Dose: 0.1 mg Clonidine HCl (Catapres) 0.1 mg PO Q8H [facility] Last Admin: 01/22/18 04:14 Dose: 0.1 mg Dextrose (Glutose 15) 15 gm PO ASDIRECTED PRN PRN Reason: LOW BS Famotidine (Pepcid) 20 mg PO BID [facility] Last Admin: 01/19/18 13:10 Dose: 20 mg Famotidine (Pepcid) 20 mg PO Q12H [facility] Last Admin: 01/20/18 17:13 Dose: Not Given Famotidine (Pepcid) 20 mg PO BID@0600,1800 [facility] Last Admin: 01/21/18 05:28 Dose: 20 mg Fentanyl (Sublimaze) Confirm Administered Dose 100 mcg .ROUTE .STK-MED ONE Stop: 01/20/18 11:46 Fentanyl (Sublimaze) 50 mcg IVPUSH Q5M PRN PRN Reason: Pain Furosemide (Lasix) 40 mg PO TID [facility] Last Admin: 01/19/18 14:19 Dose: 40 mg Furosemide (Lasix) 40 mg PO TID CELI Furosemide (Lasix) 40 mg PO DAILY [facility] Furosemide (Lasix) 40 mg IVPUSH NOW ONE Stop: 01/20/18 05:01 Last Admin: 01/20/18 06:00 Dose: 40 mg Furosemide (Lasix) 40 mg IVPUSH ONETIME ONE Stop: 01/21/18 12:01 Last Admin: 01/21/18 13:27 Dose: 40 mg Hydromorphone HCl (Dilaudid) 1 mg IVPUSH ONETIME ONE Stop: 01/19/18 05:25 Last Admin: 01/19/18 05:48 Dose: 1 mg Hydromorphone HCl (Dilaudid) 0.5 mg IVPUSH ONETIME ONE Stop: 01/19/18 07:33 Last Admin: 01/19/18 07:53 Dose: 0.5 mg Hydromorphone HCl (Dilaudid) 0.5 mg IM ONETIME ONE Stop: 01/21/18 13:18 Last Admin: 01/21/18 13:15 Dose: Not Given Sodium Chloride (Normal Saline) 1,000 mls @ 250 mls/hr IV ASDIRECTED [facility] Last Admin: 01/19/18 05:47 Dose: 250 mls/hr Lactated Ringer's (Ringers, Lactated) 1,000 mls @ 125 mls/hr IV ASDIRECTED [facility] Last Infusion: 01/20/18 12:30 Dose: 0 mls/hr Vancomycin HCl 1 gm/ Sodium (Chloride) 250 mls @ 250 mls/hr IV ONETIME ONE Stop: 01/20/18 14:14 Last Admin: 01/20/18 19:13 Dose: Not Given Sodium Chloride (Normal Saline) Confirm Administered Dose 100 mls @ as directed .ROUTE .STK-MED ONE Stop: 01/20/18 14:00 Lactated Ringer's (Ringers, Lactated) Confirm Administered Dose 1,000 mls @ as directed .ROUTE .STK-MED ONE Stop: 01/20/18 14:49 Lactated Ringer's (Ringers, Lactated) Confirm Administered Dose 1,000 mls @ as directed .ROUTE .STK-MED ONE Stop: 01/20/18 14:49 Cefazolin Sodium/Dextrose 2 gm (/ Premix) 50 mls @ 100 mls/hr IV Q8H [facility] Stop: 01/21/18 12:29 Last Admin: 01/21/18 11:04 Dose: 100 mls/hr Sodium Chloride (Normal Saline) 500 mls @ 75 mls/hr IV ONETIME ONE Stop: 01/21/18 17:39 Last Admin: 01/21/18 11:44 Dose: 75 mls/hr Iopamidol (Isovue-300 (61%)) 100 ml IVPUSH ONETIME ONE Stop: 01/19/18 15:46 Last Admin: 01/19/18 15:49 Dose: 100 ml Ketamine HCl (Ketalar) Confirm Administered Dose 500 mg .ROUTE .STK-MED ONE Stop: 01/20/18 11:47 Ketorolac Tromethamine (Toradol) 15 mg IVPUSH Q6H [facility] Stop: 01/20/18 17:01 Last Admin: 01/20/18 18:02 Dose: 15 mg Levothyroxine Sodium (Synthroid) 100 mcg PO DAILY [facility] Last Admin: 01/22/18 09:41 Dose: Not Given Lidocaine HCl (Xylocaine-Mpf 1%) Confirm Administered Dose 5 ml .ROUTE .STK-MED ONE Stop: 01/20/18 12:33 Losartan Potassium (Cozaar) 100 mg PO DAILY [facility] Last Admin: 01/19/18 14:19 Dose: 100 mg Metoprolol Succinate (Toprol Xl) 25 mg PO DAILY [facility] Last Admin: 01/19/18 14:14 Dose: 25 mg Midazolam HCl (Versed 1 Mg/Ml) Confirm Administered Dose 2 mg .ROUTE .STK-MED ONE Stop: 01/20/18 11:46 Midazolam HCl (Versed 1 Mg/Ml) Confirm Administered Dose 2 mg .ROUTE .STK-MED ONE Stop: 01/20/18 13:28 Morphine Sulfate (Duramorph Pf) Confirm Administered Dose 1 mg .ROUTE .STK-MED ONE Stop: 04/21/18 12:28 Naloxone HCl (Narcan) 0.5 mg IVPUSH ONETIME ONE Stop: 01/19/18 17:04 Last Admin: 01/19/18 17:28 Dose: 0.5 mg Non-Formulary Medication (Acetaminophen) 650 mg PO Q8H PRN PRN Reason: Pain Ondansetron HCl (Zofran) 4 mg IVPUSH ONETIME ONE Stop: 01/19/18 05:25 Last Admin: 01/19/18 05:47 Dose: 4 mg Ondansetron HCl (Zofran) 4 mg IVPUSH ONETIME PRN PRN Reason: Nausea/Vomiting Ondansetron HCl (Zofran) Confirm Administered Dose 4 mg .ROUTE .STK-MED ONE Stop: 01/20/18 14:49 Pantoprazole Sodium (Protonix Iv) 40 mg IVPUSH DAILY [facility] Pantoprazole Sodium (Protonix Iv) 40 mg IVPUSH BID [facility] Last Admin: 01/20/18 09:37 Dose: 40 mg Loxapine 25 Mg 0 each PO DAILY@1400 [facility] Last Admin: 01/19/18 15:00 Dose: Not Given Phenylephrine HCl (Rodney-Synephrine) Confirm Administered Dose 10 mg .ROUTE .STK- MED ONE Stop: 01/20/18 14:00 Phenylephrine HCl (Phenylephrine In Ns 100 Mcg/Ml) Confirm Administered Dose 1 mg .ROUTE .STK-MED ONE Stop: 01/20/18 14:01 Propofol (Diprivan 20 Ml) Confirm Administered Dose 600 mg .ROUTE .STK-MED ONE Stop: 01/20/18 11:46 Temazepam (Restoril) 30 mg PO BEDTIME [facility]I - Exam Quality Assessment: DVT Prophylaxis General: Alert, Oriented, Cooperative, No Acute Distress HEENT: Pupils Equal, Pupils Reactive, EOMI, Mucous Membr. Moist/[place] Neck: Supple Lungs: Clear to Auscultation, Normal Respiratory Effort, Decreased Breath Sounds. No: Wheezing Cardiovascular: Regular Rate, Regular Rhythm GI/Abdominal Exam: Normal Bowel Sounds, Soft, Non-Tender, No Organomegaly, No Distention, No Abnormal Bruit, No Mass, Pelvis Stable (Female) Exam: Deferred Back Exam: Normal Inspection, Full Range of Motion Extremities: Normal Inspection, Normal Range of Motion, Non-Tender, Normal Capillary Refill, Pedal Edema (1+, s/p left hip repair) Peripheral Pulses: 1+: Posterior Tibial (L), Posterior Tibial (R), Dorsalis Pedis (L), Dorsalis Pedis (R) Skin: Warm, Dry, Intact Neurological: No New Focal Deficit Psy/Mental Status: Alert, Normal Affect, Normal Mood - Problem List & Annotations (1) Fracture of proximal end of femur SNOMED Code(s): 179626307 Code(s): S72.009A - FRACTURE OF UNSP PART OF NECK OF UNSP FEMUR, INIT Status: Acute Priority: High Current Visit: Yes Qualifiers: Encounter type: initial encounter Fracture type: closed Laterality: left Qualified Code(s): S72.002A - Fracture of unspecified part of neck of left femur, initial encounter for closed fracture (2) Anemia SNOMED Code(s): 642486610 Code(s): D64.9 - ANEMIA, UNSPECIFIED Status: Chronic Priority: Medium Current Visit: Yes Qualifiers: 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 type: pancytopenia, antineoplastic chemotherapy-induced Qualified Code(s): D61.810 - Antineoplastic chemotherapy induced pancytopenia; T45.1X5A - Adverse effect of antineoplastic and immunosuppressive drugs, initial encounter (3) Congestive heart failure SNOMED Code(s): 69026396 Code(s): I50.9 - HEART FAILURE, UNSPECIFIED Status: Chronic Priority: Medium Current Visit: Yes Qualifiers: Heart failure type: diastolic Heart failure chronicity: chronic Qualified Code(s): I50.32 - Chronic diastolic (congestive) heart failure (4) Hyponatremia SNOMED Code(s): 32561662 Code(s): E87.1 - HYPO-OSMOLALITY AND HYPONATREMIA Status: Chronic Priority: Medium Current Visit: Yes (5) Renal insufficiency SNOMED Code(s): 243452036, 115986933 Code(s): N28.9 - DISORDER OF KIDNEY AND URETER, UNSPECIFIED Status: Chronic Priority: High Current Visit: Yes (6) Traumatic brain injury SNOMED Code(s): 731303586 Code(s): S06.9X9A - UNSP INTRACRANIAL INJURY W LOC OF UNSP DURATION, INIT Status: Chronic Priority: Low Current Visit: Yes Qualifiers: Encounter type: subsequent encounter Loss of consciousness presence/ duration: with LOC of unspecified duration Qualified Code(s): S06.9X9D - Unspecified intracranial injury with loss of consciousness of unspecified duration, subsequent encounter (7) Type 2 diabetes mellitus SNOMED Code(s): 19544130 Code(s): E11.9 - TYPE 2 DIABETES MELLITUS WITHOUT COMPLICATIONS Status: Chronic Priority: Medium Current Visit: Yes Qualifiers: Diabetes mellitus [facility] 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 Diabetes mellitus complication status: with unspecified complications Qualified Code(s): E11.8 - Type 2 diabetes mellitus with unspecified complications - Problem List Review Problem List Initiated/Reviewed/Updated: Yes - My Orders Last 24 Hours: My Active Orders 01/23/18 13:55 Communication Order [RC] PRN Enema [RC] ASDIRECTED 01/24/18 09:25 UA W/MICROSCOPIC [URIN] Routine 01/25/18 05:11 C-REACTIVE PROTEIN [CHEM] AM CBC WITH AUTO DIFF [HEME] AM COMPREHENSIVE METABOLIC PN,CMP [CHEM] AM LACTIC ACID [CHEM] AM MAGNESIUM [CHEM] AM 01/25/18 14:45 PRO B-TYPE NATRIUR PEPT,BNPPRO [CHEM] DAILY 01/26/18 05:11 C-REACTIVE PROTEIN [CHEM] AM CBC WITH AUTO DIFF [HEME] AM COMPREHENSIVE METABOLIC PN,CMP [CHEM] AM LACTIC ACID [CHEM] AM MAGNESIUM [CHEM] AM 01/26/18 14:45 PRO B-TYPE NATRIUR PEPT,BNPPRO [CHEM] DAILY 01/27/18 05:11 C-REACTIVE PROTEIN [CHEM] AM CBC WITH AUTO DIFF [HEME] AM COMPREHENSIVE METABOLIC PN,CMP [CHEM] AM LACTIC ACID [CHEM] AM MAGNESIUM [CHEM] AM 01/27/18 14:45 PRO B-TYPE NATRIUR PEPT,BNPPRO [CHEM] DAILY 01/28/18 05:11 C-REACTIVE PROTEIN [CHEM] AM CBC WITH AUTO DIFF [HEME] AM COMPREHENSIVE METABOLIC PN,CMP [CHEM] AM LACTIC ACID [CHEM] AM MAGNESIUM [CHEM] AM 01/28/18 14:45 PRO B-TYPE NATRIUR PEPT,BNPPRO [CHEM] DAILY - Plan Plan:: I/P: Acute: Fracture of proximal end of femur, s/p fall ; POD 2: IM paul placement for left femoral shaft fracture -Pain controlled -Stable condition -Pain medication PRN -Bedrest, PT/OT after surgery -Continue supportive care Hyponatremia -Na 130--> 132 -->130 -Monitor Hyperemesis--resolved -Risk factor: chemotherapy -Zofran Q4H -IV lactated ringers Chronic: Anemia, Thrombocytopenia- improving -RBC 3.07-->2.96, Hgb 9.6-->9.4, HCT 29.1-->28.7, RDW 51.3-->51.8 -Plt 168-->173 -Monitor -Blood Type and Screen ordered -Replenish with PRBCs as needed CKD stage III -eGFR 47-->50-->46 -Creatinine 1.7-->1.1-->1.2 -NS IV started in ED--> D/C and start LR IV -Defer to PCP for f/u Diabetes Type II -Blood Glucose Checks QID -Continue at home Metformin 500mg -Sliding scale Insulin -A1C ordered -ADA diet after surgery -Defer to PCP for f/u CHF -BNP 236-->1891-->1366-->2548-->2782-->1166 -Continue at home Lasix 40mg TID -Monitor Traumatic Brain Injury Leukemia --> Continue at home Gleevec 600mg here HTN--home meds restarted Plan: Transfered to Med-Surg telemetry unit She remains stable Continue at home meds as above Consult with Dr. Lanza for surgery Other orders as indicated above CM/SW for discharge planning Routine AM labs Continue PT/OT DVT Prophylaxis: SCD Ready to D/C pending SNF placement for rehabilitation--> Gleevec is causing issues with placement Code Status: Full code (CPR, Defib, Intubation)- However "No life sustaining treatment on machines" -per Sister Beti, Power of Dock Operator PCP: Dr. Cespedes LOS > 96hrs due to difficulty with SNF rehabilitation placement
[2018-01-24] MEDS: Acetaminophen/HYDROcodone 325-5 MG Tab PO PRN ×2 (16:52→21:26)
[2018-01-24] MEDS: LOXAPINE 25 MG PO SCH ×2 (18:45→19:27)
[2018-01-24] MEDS: Temazepam 7.5 MG Cap PO SCH (21:26)
[2018-01-24] MEDS: Losartan 100 MG Tab PO SCH (21:28)
[2018-01-24] MEDS: Simvastatin 10 MG Tab PO SCH (21:29)
[2018-01-24] MEDS: traZODone 50 MG Tab PO SCH (21:33)
[2018-01-24] MEDS ORDERED: Temazepam 7.5 MG Cap PO ONE (22:02)
[2018-01-24] MEDS: Temazepam 15 MG Cap PO SCH (22:40)
[2018-01-25] MEDS: traMADol 50 MG Tab PO SCH ×3 (03:40→20:50)
[2018-01-25] MEDS: Levothyroxine 100 MCG Tab PO SCH (05:41)
[2018-01-25] MEDS: Insulin Aspart 100 Units/ML 3 ML Pen SUBCUT SCH ×4 (06:08→21:06)
[2018-01-25] MEDS: Hypromellose 0.5% Ophth Soln 15 ML Bottle EYEBOTH SCH ×2 (08:00→20:55)
[2018-01-25] MEDS: Famotidine 20 MG Tab PO SCH (08:01)
[2018-01-25] MEDS: cloNIDine 0.1 MG Tab PO SCH ×2 (08:01→20:50)
[2018-01-25] MEDS: Spironolactone 25 MG Tab PO SCH (08:01)
[2018-01-25] MEDS: Metoprolol Succinate 25 MG Tab.ER PO SCH (08:01)
[2018-01-25] MEDS: Enoxaparin 40 MG/0.4 ML Syringe SUBCUT SCH (08:01)
[2018-01-25] MEDS: Furosemide 40 MG Tab PO SCH (08:01)
[2018-01-25] MEDS: Memantine 10 MG Tab PO SCH (08:02)
[2018-01-25] MEDS: Docusate Sodium 100 MG Cap PO SCH ×2 (08:02→20:49)
[2018-01-25] MEDS: IMATINIB MESYLATE 600 MG PO SCH (08:03)
--- NOTE | 2018-01-25 10:34 | PCM.SURGPN ---
- General Info Date of Service: 01/25/18 POD#: 5 Functional Status: Reports: Pain Controlled, Tolerating Diet, Ambulating, Urinating, Other (Pt was encouraged today that she was able to walk from the door to the commode.) - Patient Data Vitals - Most Recent: Last Vital Signs Temp 98 F 01/25/18 07:52 Pulse 87 01/25/18 08:01 Resp 18 01/25/18 07:52 BP 138/50 L 01/25/18 08:01 Pulse Ox 99 01/25/18 07:52 Weight - Most Recent: 195 lb 9.6 oz I&O - Last 24 Hours: Intake & Output 01/24/18 01/25/18 01/25/18 22:59 06:59 14:59 Intake Total 520 550 Balance 520 550 Lab Results Last 24 Hrs: Laboratory Results - last 24 hr 01/24/18 01/24/18 01/24/18 Range/Units 12:01 16:45 21:14 WBC (3.98-10.04) K/mm3 RBC (3.98-5.22) M/mm3 Hgb (11.2-15.7) gm/L Hct (34.1-44.9) % MCV (79.4-94.8) fl MCH (25.6-32.2) pg MCHC (32.2-35.5) g/dl RDW Std Deviation (36.4-46.3) fL Plt Count (182-369) K/mm3 MPV (9.4-12.3) fl Neut % (Auto) (34.0-71.1) % Lymph % (Auto) (19.3-51.7) % [place] % (Auto) (4.7-12.5) % Eos % (Auto) (0.7-5.8) Baso % (Auto) (0.1-1.2) % Neut # (Auto) (1.56-6.13) K/mm3 Lymph # (Auto) (1.18-3.74) K/mm3 [place] # (Auto) (0.24-0.36) K/mm3 Eos # (Auto) (0.04-0.36) K/mm3 Baso # (Auto) (0.01-0.08) K/mm3 Sodium (136-145) mEq/L Potassium (3.5-5.1) mEq/L Chloride (98-107) mEq/L Carbon Dioxide (21-32) mEq/L Anion Gap (5-15) BUN (7-18) mg/dL Creatinine (0.55-1.02) mg/dL Est Cr Clr Drug Dosing mL/min Estimated GFR (MDRD) (>60) mL/min BUN/Creatinine Ratio (14-18) Glucose (80-115) mg/dL POC Glucose 130 H 150 H 153 H (80-115) mg/dL Lactic Acid (0.4-2.0) mmol/L Calcium (8.5-10.1) mg/dL Magnesium (1.8-2.4) mg/dl Total Bilirubin (0.2-1.0) mg/dL AST (15-37) U/L ALT (14-59) U/L Alkaline Phosphatase (46-116) U/L C-Reactive Protein (<1.0) mg/dL NT-Pro-B Natriuret Pep (0-125) pg/mL Total Protein (6.4-8.2) g/dl Albumin (3.4-5.0) g/dl Globulin gm/dL Albumin/Globulin Ratio (1-2) 01/25/18 01/25/18 01/25/18 Range/Units 05:44 05:45 05:45 WBC 6.77 (3.98-10.04) K/mm3 RBC 2.74 L (3.98-5.22) M/mm3 Hgb 8.9 L (11.2-15.7) gm/L Hct 26.8 L (34.1-44.9) % MCV 97.8 H (79.4-94.8) fl MCH 32.5 H (25.6-32.2) pg MCHC 33.2 (32.2-35.5) g/dl RDW Std Deviation 52.4 H (36.4-46.3) fL Plt Count 180 L (182-369) K/mm3 MPV 9.3 L (9.4-12.3) fl Neut % (Auto) 52.6 (34.0-71.1) % Lymph % (Auto) 27.9 (19.3-51.7) % [place] % (Auto) 12.0 (4.7-12.5) % Eos % (Auto) 6.6 H (0.7-5.8) Baso % (Auto) 0.6 (0.1-1.2) % Neut # (Auto) 3.56 (1.56-6.13) K/mm3 Lymph # (Auto) 1.89 (1.18-3.74) K/mm3 [place] # (Auto) 0.81 H (0.24-0.36) K/mm3 Eos # (Auto) 0.45 H (0.04-0.36) K/mm3 Baso # (Auto) 0.04 (0.01-0.08) K/mm3 Sodium 133 L (136-145) mEq/L Potassium 4.4 (3.5-5.1) mEq/L Chloride 102 (98-107) mEq/L Carbon Dioxide 27 (21-32) mEq/L Anion Gap 8.4 (5-15) BUN 33 H (7-18) mg/dL Creatinine 1.3 H (0.55-1.02) mg/dL Est Cr Clr Drug Dosing 32.23 mL/min Estimated GFR (MDRD) 42 (>60) mL/min BUN/Creatinine Ratio 25.4 H (14-18) Glucose 131 H (80-115) mg/dL POC Glucose 126 H (80-115) mg/dL Lactic Acid (0.4-2.0) mmol/L Calcium 8.1 L (8.5-10.1) mg/dL Magnesium 2.2 (1.8-2.4) mg/dl Total Bilirubin 1.2 H (0.2-1.0) mg/dL AST 52 H (15-37) U/L ALT 25 (14-59) U/L Alkaline Phosphatase 90 (46-116) U/L C-Reactive Protein 2.5 H* (<1.0) mg/dL NT-Pro-B Natriuret Pep (0-125) pg/mL Total Protein 5.3 L (6.4-8.2) g/dl Albumin 2.4 L (3.4-5.0) g/dl Globulin 2.9 gm/dL Albumin/Globulin Ratio 0.8 L (1-2) 01/25/18 01/25/18 Range/Units 05:45 05:45 WBC (3.98-10.04) K/mm3 RBC (3.98-5.22) M/mm3 Hgb (11.2-15.7) gm/L Hct (34.1-44.9) % MCV (79.4-94.8) fl MCH (25.6-32.2) pg MCHC (32.2-35.5) g/dl RDW Std Deviation (36.4-46.3) fL Plt Count (182-369) K/mm3 MPV (9.4-12.3) fl Neut % (Auto) (34.0-71.1) % Lymph % (Auto) (19.3-51.7) % [place] % (Auto) (4.7-12.5) % Eos % (Auto) (0.7-5.8) Baso % (Auto) (0.1-1.2) % Neut # (Auto) (1.56-6.13) K/mm3 Lymph # (Auto) (1.18-3.74) K/mm3 [place] # (Auto) (0.24-0.36) K/mm3 Eos # (Auto) (0.04-0.36) K/mm3 Baso # (Auto) (0.01-0.08) K/mm3 Sodium (136-145) mEq/L Potassium (3.5-5.1) mEq/L Chloride (98-107) mEq/L Carbon Dioxide (21-32) mEq/L Anion Gap (5-15) BUN (7-18) mg/dL Creatinine (0.55-1.02) mg/dL Est Cr Clr Drug Dosing mL/min Estimated GFR (MDRD) (>60) mL/min BUN/Creatinine Ratio (14-18) Glucose (80-115) mg/dL POC Glucose (80-115) mg/dL Lactic Acid 1.2 (0.4-2.0) mmol/L Calcium (8.5-10.1) mg/dL Magnesium (1.8-2.4) mg/dl Total Bilirubin (0.2-1.0) mg/dL AST (15-37) U/L ALT (14-59) U/L Alkaline Phosphatase (46-116) U/L C-Reactive Protein (<1.0) mg/dL NT-Pro-B Natriuret Pep 722 H (0-125) pg/mL Total Protein (6.4-8.2) g/dl Albumin (3.4-5.0) g/dl Globulin gm/dL Albumin/Globulin Ratio (1-2) Med Orders - Current: Current Medications Acetaminophen (Tylenol) 650 mg PO Q6H PRN PRN Reason: Pain/Fever Last Admin: 01/20/18 08:27 Dose: 650 mg Hydrocodone Bitart/Acetaminophen ([place] 325-5 Mg) 1 - 2 tab PO Q4H PRN PRN Reason: Pain Last Admin: 01/24/18 21:26 Dose: 2 tab Albuterol (Proventil Neb Soln) 2.5 mg NEB Q2H PRN PRN Reason: Shortness Of Breath/wheezing Albuterol/Ipratropium (Duoneb 3.0-0.5 Mg/3 Ml) 3 ml NEB Q4H PRN PRN Reason: Shortness Of Breath/wheezing Artificial Tears (Isopto Tears 0.5% Ophth Soln) 0 ml EYEBOTH BID [facility] Last Admin: 01/25/18 08:00 Dose: 1 drop Bisacodyl (Dulcolax) 5 mg PO DAILY PRN PRN Reason: Constipation Last Admin: 01/22/18 09:35 Dose: 5 mg Clonidine HCl (Catapres) 0.3 mg PO BID [facility] Last Admin: 01/25/18 08:01 Dose: 0.3 mg Cyclobenzaprine HCl (Flexeril) 10 mg PO TID PRN PRN Reason: Muscle Spasm Last Admin: 01/23/18 09:43 Dose: 10 mg Dextrose/Water (Dextrose 50% In Water) 50 ml IVPUSH ASDIRECTED PRN PRN Reason: Hypoglycemia Diphenhydramine HCl (Benadryl) 25 mg IVPUSH Q6H PRN PRN Reason: Pruritis Last Admin: 01/20/18 23:35 Dose: 25 mg Docusate Sodium (Colace) 100 mg PO BID PRN PRN Reason: Constipation Docusate Sodium (Colace) 100 mg PO BID [facility] Last Admin: 01/25/18 08:02 Dose: 100 mg Enoxaparin Sodium (Lovenox) 40 mg SUBCUT DAILY [facility] Last Admin: 01/25/18 08:01 Dose: 40 mg Famotidine (Pepcid) 20 mg PO DAILY [facility] Last Admin: 01/25/18 08:01 Dose: 20 mg Furosemide (Lasix) 40 mg PO DAILY [facility] Last Admin: 01/25/18 08:01 Dose: 40 mg Hydralazine HCl (Apresoline) 20 mg IVPUSH Q6H PRN PRN Reason: Hypertension Last Admin: 01/23/18 02:14 Dose: 20 mg Hydromorphone HCl (Dilaudid) 0.5 mg IVPUSH Q4H PRN PRN Reason: Pain Last Admin: 01/22/18 22:28 Dose: 0.5 mg Insulin Aspart (Novolog) 0 unit SUBCUT QIDACANDBED [facility]; Protocol Last Admin: 01/25/18 06:08 Dose: Not Given Levothyroxine Sodium (Synthroid) 100 mcg PO DAILY@0600 [facility] Last Admin: 01/25/18 05:41 Dose: 100 mcg Losartan Potassium (Cozaar) 100 mg PO BEDTIME [facility] Last Admin: 01/24/18 21:28 Dose: 100 mg Magnesium Hydroxide (Milk Of Magnesia) 30 ml PO Q12H PRN PRN Reason: Constipation Last Admin: 01/22/18 18:14 Dose: 30 ml Memantine (Namenda) 5 mg PO DAILY [facility] Last Admin: 01/25/18 08:02 Dose: 5 mg Metformin HCl (Glucophage) 500 mg PO BIDMEALS [facility] Metoprolol Succinate (Toprol Xl) 25 mg PO DAILY [facility] Last Admin: 01/25/18 08:01 Dose: 25 mg Metoprolol Tartrate (Lopressor) 5 mg IVPUSH Q4H PRN PRN Reason: Hypertension Last Admin: 01/21/18 09:45 Dose: 5 mg Naloxone HCl (Narcan) 0.1 mg IVPUSH Q5M PRN PRN Reason: Oversedation Ondansetron HCl (Zofran) 4 mg IVPUSH Q4H PRN PRN Reason: Nausea/Vomiting Last Admin: 01/20/18 23:35 Dose: 4 mg Imatinib Mesylate [ (Gleevec] 600 Mg) 0 each PO DAILY [facility] Last Admin: 01/25/18 08:03 Dose: 600 each Loxapine 50 Mg 0 each PO BEDTIME [facility] Last Admin: 01/24/18 21:29 Dose: 50 each Loxapine 25 Mg 0 each PO DAILY@1800 [facility] Last Admin: 01/24/18 19:27 Dose: 1 each Polyethylene Glycol (Miralax) 17 gm PO DAILY PRN PRN Reason: Constipation Senna/Docusate Sodium (Senna Plus) 1 tab PO BID PRN PRN Reason: Constipation Simvastatin (Zocor) 10 mg PO BEDTIME [facility] Last Admin: 01/24/18 21:29 Dose: 10 mg Sodium Chloride (Saline Flush) 10 ml FLUSH ONETIME PRN PRN Reason: IV FLUSH Last Admin: 01/21/18 18:06 Dose: 10 ml Spironolactone (Aldactone) 25 mg PO DAILY [facility] Last Admin: 01/25/18 08:01 Dose: 25 mg Temazepam (Restoril) 15 mg PO BEDTIME [facility] Last Admin: 01/24/18 22:40 Dose: Not Given Tramadol HCl (Ultram) 50 mg PO Q8H [facility] Last Admin: 01/25/18 03:40 Dose: 50 mg Trazodone HCl (Trazodone) 100 mg PO BEDTIME [facility] Last Admin: 01/24/18 21:33 Dose: 100 mg Discontinued Medications Albuterol (Proventil Neb Soln) 2.5 mg NEB ONETIME ONE Stop: 01/20/18 13:58 Last Admin: 01/20/18 19:13 Dose: Not Given Artificial Tears (Isopto Tears 0.5% Ophth Soln) 0 ml EYEBOTH BID [facility] Last Admin: 01/19/18 15:00 Dose: Not Given Artificial Tears (Isopto Tears 0.5% Ophth Soln) 0 ml EYEBOTH BID [facility] Last Admin: 01/19/18 14:20 Dose: 1 drop Bisacodyl (Dulcolax) 10 mg RECTAL ONETIME ONE Stop: 01/23/18 06:12 Last Admin: 01/23/18 06:25 Dose: 10 mg Bupivacaine HCl (Sensorcaine-Mpf 0.75%) Confirm Administered Dose 30 ml .ROUTE .STK-MED ONE Stop: 01/20/18 11:45 Bupivacaine HCl (Marcaine 0.25%) Confirm Administered Dose 30 ml .ROUTE .STK- MED ONE Stop: 01/20/18 12:15 Last Admin: 01/20/18 13:48 Dose: 30 ml Cefazolin Sodium (Ancef) Confirm Administered Dose 2 gm .ROUTE .STK-MED ONE Stop: 01/20/18 11:46 Clonidine HCl (Catapres) 0.3 mg PO BID [facility] Clonidine HCl (Catapres) 0.1 mg PO ONETIME ONE Stop: 01/19/18 19:38 Last Admin: 01/19/18 19:59 Dose: 0.1 mg Clonidine HCl (Catapres) 0.1 mg PO Q8H [facility] Last Admin: 01/22/18 04:14 Dose: 0.1 mg Dextrose (Glutose 15) 15 gm PO ASDIRECTED PRN PRN Reason: LOW BS Famotidine (Pepcid) 20 mg PO BID [facility] Last Admin: 01/19/18 13:10 Dose: 20 mg Famotidine (Pepcid) 20 mg PO Q12H [facility] Last Admin: 01/20/18 17:13 Dose: Not Given Famotidine (Pepcid) 20 mg PO BID@0600,1800 [facility] Last Admin: 01/21/18 05:28 Dose: 20 mg Fentanyl (Sublimaze) Confirm Administered Dose 100 mcg .ROUTE .STK-MED ONE Stop: 01/20/18 11:46 Fentanyl (Sublimaze) 50 mcg IVPUSH Q5M PRN PRN Reason: Pain Furosemide (Lasix) 40 mg PO TID [facility] Last Admin: 01/19/18 14:19 Dose: 40 mg Furosemide (Lasix) 40 mg PO TID [facility] Furosemide (Lasix) 40 mg PO DAILY [facility] Furosemide (Lasix) 40 mg IVPUSH NOW ONE Stop: 01/20/18 05:01 Last Admin: 01/20/18 06:00 Dose: 40 mg Furosemide (Lasix) 40 mg IVPUSH ONETIME ONE Stop: 01/21/18 12:01 Last Admin: 01/21/18 13:27 Dose: 40 mg Hydromorphone HCl (Dilaudid) 1 mg IVPUSH ONETIME ONE Stop: 01/19/18 05:25 Last Admin: 01/19/18 05:48 Dose: 1 mg Hydromorphone HCl (Dilaudid) 0.5 mg IVPUSH ONETIME ONE Stop: 01/19/18 07:33 Last Admin: 01/19/18 07:53 Dose: 0.5 mg Hydromorphone HCl (Dilaudid) 0.5 mg IM ONETIME ONE Stop: 01/21/18 13:18 Last Admin: 01/21/18 13:15 Dose: Not Given Sodium Chloride (Normal Saline) 1,000 mls @ 250 mls/hr IV ASDIRECTED [facility] Last Admin: 01/19/18 05:47 Dose: 250 mls/hr Lactated Ringer's (Ringers, Lactated) 1,000 mls @ 125 mls/hr IV ASDIRECTED [facility] Last Infusion: 01/20/18 12:30 Dose: 0 mls/hr Vancomycin HCl 1 gm/ Sodium (Chloride) 250 mls @ 250 mls/hr IV ONETIME ONE Stop: 01/20/18 14:14 Last Admin: 01/20/18 19:13 Dose: Not Given Sodium Chloride (Normal Saline) Confirm Administered Dose 100 mls @ as directed .ROUTE .STK-MED ONE Stop: 01/20/18 14:00 Lactated Ringer's (Ringers, Lactated) Confirm Administered Dose 1,000 mls @ as directed .ROUTE .STK-MED ONE Stop: 01/20/18 14:49 Lactated Ringer's (Ringers, Lactated) Confirm Administered Dose 1,000 mls @ as directed .ROUTE .STK-MED ONE Stop: 01/20/18 14:49 Cefazolin Sodium/Dextrose 2 gm (/ Premix) 50 mls @ 100 mls/hr IV Q8H [facility] Stop: 01/21/18 12:29 Last Admin: 01/21/18 11:04 Dose: 100 mls/hr Sodium Chloride (Normal Saline) 500 mls @ 75 mls/hr IV ONETIME ONE Stop: 01/21/18 17:39 Last Admin: 01/21/18 11:44 Dose: 75 mls/hr Iopamidol (Isovue-300 (61%)) 100 ml IVPUSH ONETIME ONE Stop: 01/19/18 15:46 Last Admin: 01/19/18 15:49 Dose: 100 ml Ketamine HCl (Ketalar) Confirm Administered Dose 500 mg .ROUTE .STK-MED ONE Stop: 01/20/18 11:47 Ketorolac Tromethamine (Toradol) 15 mg IVPUSH Q6H [facility] Stop: 01/20/18 17:01 Last Admin: 01/20/18 18:02 Dose: 15 mg Levothyroxine Sodium (Synthroid) 100 mcg PO DAILY [facility] Last Admin: 01/22/18 09:41 Dose: Not Given Lidocaine HCl (Xylocaine-Mpf 1%) Confirm Administered Dose 5 ml .ROUTE .STK-MED ONE Stop: 01/20/18 12:33 Losartan Potassium (Cozaar) 100 mg PO DAILY [facility] Last Admin: 01/19/18 14:19 Dose: 100 mg Metoprolol Succinate (Toprol Xl) 25 mg PO DAILY [facility] Last Admin: 01/19/18 14:14 Dose: 25 mg Midazolam HCl (Versed 1 Mg/Ml) Confirm Administered Dose 2 mg .ROUTE .STK-MED ONE Stop: 01/20/18 11:46 Midazolam HCl (Versed 1 Mg/Ml) Confirm Administered Dose 2 mg .ROUTE .STK-MED ONE Stop: 01/20/18 13:28 Morphine Sulfate (Duramorph Pf) Confirm Administered Dose 1 mg .ROUTE .STK-MED ONE Stop: 01/20/18 12:28 Naloxone HCl (Narcan) 0.5 mg IVPUSH ONETIME ONE Stop: 01/19/18 17:04 Last Admin: 01/19/18 17:28 Dose: 0.5 mg Non-Formulary Medication (Acetaminophen) 650 mg PO Q8H PRN PRN Reason: Pain Ondansetron HCl (Zofran) 4 mg IVPUSH ONETIME ONE Stop: 01/19/18 05:25 Last Admin: 01/19/18 05:47 Dose: 4 mg Ondansetron HCl (Zofran) 4 mg IVPUSH ONETIME PRN PRN Reason: Nausea/Vomiting Ondansetron HCl (Zofran) Confirm Administered Dose 4 mg .ROUTE .STK-MED ONE Stop: 01/20/18 14:49 Pantoprazole Sodium (Protonix Iv) 40 mg IVPUSH DAILY [facility] Pantoprazole Sodium (Protonix Iv) 40 mg IVPUSH BID [facility] Last Admin: 01/20/18 09:37 Dose: 40 mg Loxapine 25 Mg 0 each PO DAILY@1400 [facility] Last Admin: 01/19/18 15:00 Dose: Not Given Phenylephrine HCl (Rodney-Synephrine) Confirm Administered Dose 10 mg .ROUTE .STK- MED ONE Stop: 01/20/18 14:00 Phenylephrine HCl (Phenylephrine In Ns 100 Mcg/Ml) Confirm Administered Dose 1 mg .ROUTE .STK-MED ONE Stop: 01/20/18 14:01 Propofol (Diprivan 20 Ml) Confirm Administered Dose 600 mg .ROUTE .STK-MED ONE Stop: 01/20/18 11:46 Temazepam (Restoril) 30 mg PO BEDTIME [facility] Temazepam (Restoril) 7.5 mg PO BEDTIME [facility] Last Admin: 01/24/18 21:26 Dose: 7.5 mg Temazepam (Restoril) 7.5 mg PO ONETIME ONE Stop: 01/24/18 22:03 Last Admin: 01/24/18 22:40 Dose: 7.5 mg - Exam Wound/Incisions: Other (No significant increase in shadowing noted on Aquacels.) General: Alert, Cooperative, No Acute Distress Lungs: Normal Respiratory Effort Extremities: Other (Shashi's negative for LLE. Active left ankle and knee motion noted.) - Problem List Review Problem List Initiated/Reviewed/Updated: Yes - My Orders Last 24 Hours: Active Orders 24 hr Category Date Time Status C-REACTIVE PROTEIN [CHEM] AM Lab 01/26/18 05:11 Ordered C-REACTIVE PROTEIN [CHEM] AM Lab 01/27/18 05:11 Ordered C-REACTIVE PROTEIN [CHEM] AM Lab 01/28/18 05:11 Ordered CBC WITH AUTO DIFF [HEME] AM Lab 01/26/18 05:11 Ordered CBC WITH AUTO DIFF [HEME] AM Lab 01/27/18 05:11 Ordered CBC WITH AUTO DIFF [HEME] AM Lab 01/28/18 05:11 Ordered COMPREHENSIVE METABOLIC PN,CMP [CHEM] AM Lab 01/26/18 05:11 Ordered COMPREHENSIVE METABOLIC PN,CMP [CHEM] AM Lab 01/27/18 05:11 Ordered COMPREHENSIVE METABOLIC PN,CMP [CHEM] AM Lab 01/28/18 05:11 Ordered LACTIC ACID [CHEM] AM Lab 01/26/18 05:11 Ordered LACTIC ACID [CHEM] AM Lab 01/27/18 05:11 Ordered LACTIC ACID [CHEM] AM Lab 01/28/18 05:11 Ordered MAGNESIUM [CHEM] AM Lab 01/26/18 05:11 Ordered MAGNESIUM [CHEM] AM Lab 01/27/18 05:11 Ordered MAGNESIUM [CHEM] AM Lab 01/28/18 05:11 Ordered PRO B-TYPE NATRIUR PEPT,BNPPRO [CHEM] DAILY Lab 01/26/18 14:45 Ordered PRO B-TYPE NATRIUR PEPT,BNPPRO [CHEM] DAILY Lab 01/27/18 14:45 Ordered PRO B-TYPE NATRIUR PEPT,BNPPRO [CHEM] DAILY Lab 01/28/18 14:45 Ordered Temazepam [Restoril] Med 01/24/18 22:00 Active 15 mg PO BEDTIME Medication Orders Acetaminophen (Tylenol) 650 mg PO Q6H PRN PRN Reason: Pain/Fever Last Admin: 01/20/18 08:27 Dose: 650 mg Admin: 01/19/18 19:01 Dose: 650 mg Hydrocodone Bitart/Acetaminophen ([place] 325-5 Mg) 1 - 2 tab PO Q4H PRN PRN Reason: Pain Last Admin: 01/24/18 21:26 Dose: 2 tab Admin: 01/24/18 16:52 Dose: 1 tab Admin: 01/23/18 09:43 Dose: 2 tab Admin: 01/22/18 09:18 Dose: 2 tab Admin: 01/21/18 15:20 Dose: 2 tab Admin: 01/21/18 07:33 Dose: 2 tab Admin: 01/21/18 00:05 Dose: 2 tab Albuterol (Proventil Neb Soln) 2.5 mg NEB Q2H PRN PRN Reason: Shortness Of Breath/wheezing Albuterol/Ipratropium (Duoneb 3.0-0.5 Mg/3 Ml) 3 ml NEB Q4H PRN PRN Reason: Shortness Of Breath/wheezing Artificial Tears (Isopto Tears 0.5% Ophth Soln) 0 ml EYEBOTH BID [facility] Last Admin: 01/25/18 08:00 Dose: 1 drop Admin: 01/24/18 21:25 Dose: 1 drop Admin: 01/24/18 09:27 Dose: 1 drop Admin: 01/23/18 20:07 Dose: 1 drop Admin: 01/23/18 09:19 Dose: 1 drop Admin: 01/22/18 20:37 Dose: 2 drop Admin: 01/22/18 09:34 Dose: 1 drop Admin: 01/21/18 20:36 Dose: 1 drop Admin: 01/21/18 08:11 Dose: 1 drop Admin: 01/20/18 20:47 Dose: 1 drop Admin: 01/20/18 09:37 Dose: 1 drop Admin: 01/19/18 20:00 Dose: 1 drop Bisacodyl (Dulcolax) 5 mg PO DAILY PRN PRN Reason: Constipation Last Admin: 01/22/18 09:35 Dose: 5 mg Clonidine HCl (Catapres) 0.3 mg PO BID [facility] Last Admin: 01/25/18 08:01 Dose: 0.3 mg Admin: 01/24/18 21:27 Dose: 0.3 mg Admin: 01/24/18 09:32 Dose: 0.3 mg Admin: 01/23/18 20:06 Dose: 0.3 mg Admin: 01/23/18 09:20 Dose: 0.3 mg Admin: 01/22/18 20:35 Dose: 0.3 mg Admin: 01/22/18 09:34 Dose: 0.3 mg Cyclobenzaprine HCl (Flexeril) 10 mg PO TID PRN PRN Reason: Muscle Spasm Last Admin: 01/23/18 09:43 Dose: 10 mg Admin: 01/22/18 09:20 Dose: 10 mg Admin: 01/21/18 16:57 Dose: 10 mg Admin: 01/21/18 05:28 Dose: 10 mg Admin: 01/20/18 02:56 Dose: 10 mg Admin: 01/19/18 19:02 Dose: 10 mg Dextrose/Water (Dextrose 50% In Water) 50 ml IVPUSH ASDIRECTED PRN PRN Reason: Hypoglycemia Diphenhydramine HCl (Benadryl) 25 mg IVPUSH Q6H PRN PRN Reason: Pruritis Last Admin: 01/20/18 23:35 Dose: 25 mg Docusate Sodium (Colace) 100 mg PO BID PRN PRN Reason: Constipation Docusate Sodium (Colace) 100 mg PO BID [facility] Last Admin: 01/25/18 08:02 Dose: 100 mg Admin: 01/24/18 21:29 Dose: 100 mg Admin: 01/24/18 09:27 Dose: 100 mg Admin: 01/23/18 20:07 Dose: 100 mg Admin: 01/23/18 09:23 Dose: 100 mg Admin: 01/22/18 20:36 Dose: 100 mg Admin: 01/22/18 09:34 Dose: 100 mg Admin: 01/21/18 20:34 Dose: 100 mg Admin: 01/21/18 08:10 Dose: 100 mg Admin: 01/20/18 20:46 Dose: 100 mg Enoxaparin Sodium (Lovenox) 40 mg SUBCUT DAILY [facility] Last Admin: 01/25/18 08:01 Dose: 40 mg Admin: 01/24/18 09:29 Dose: 40 mg Admin: 01/23/18 09:24 Dose: 40 mg Admin: 01/22/18 09:36 Dose: 40 mg Admin: 01/21/18 08:11 Dose: 40 mg Famotidine (Pepcid) 20 mg PO DAILY [facility] Last Admin: 01/25/18 08:01 Dose: 20 mg Admin: 01/24/18 09:27 Dose: 20 mg Admin: 01/23/18 09:20 Dose: 20 mg Admin: 01/22/18 09:35 Dose: 20 mg Furosemide (Lasix) 40 mg PO DAILY [facility] Last Admin: 01/25/18 08:01 Dose: 40 mg Admin: 01/24/18 09:28 Dose: 40 mg Admin: 01/23/18 09:23 Dose: 40 mg Admin: 01/22/18 09:35 Dose: 40 mg Admin: 01/21/18 08:10 Dose: 40 mg Hydralazine HCl (Apresoline) 20 mg IVPUSH Q6H PRN PRN Reason: Hypertension Last Admin: 01/23/18 02:14 Dose: 20 mg Admin: 01/20/18 08:57 Dose: 20 mg Admin: 01/19/18 17:28 Dose: 20 mg Hydromorphone HCl (Dilaudid) 0.5 mg IVPUSH Q4H PRN PRN Reason: Pain Last Admin: 01/22/18 22:28 Dose: 0.5 mg Admin: 01/21/18 18:07 Dose: 0.5 mg Admin: 01/21/18 13:22 Dose: 0.5 mg Admin: 01/19/18 21:15 Dose: 0.5 mg Insulin Aspart (Novolog) 0 unit SUBCUT QIDACANDBED [facility]; Protocol Last Admin: 01/25/18 06:08 Dose: Not Given Admin: 01/24/18 21:30 Dose: 1 unit Admin: 01/24/18 16:52 Dose: 1 unit Admin: 01/24/18 12:01 Dose: Not Given Admin: 01/24/18 06:22 Dose: 1 unit Admin: 01/23/18 23:22 Dose: 1 unit Admin: 01/23/18 17:15 Dose: Not Given Admin: 01/23/18 11:56 Dose: 1 unit Admin: 01/23/18 06:31 Dose: 1 unit Admin: 01/22/18 22:22 Dose: 1 unit Admin: 01/22/18 16:43 Dose: Not Given Admin: 01/22/18 11:44 Dose: 2 unit Admin: 01/22/18 06:15 Dose: Not Given Admin: 01/21/18 21:20 Dose: 1 unit Admin: 01/21/18 16:56 Dose: 1 unit Admin: 01/21/18 11:14 Dose: 1 unit Admin: 01/21/18 06:07 Dose: Not Given Admin: 01/20/18 22:07 Dose: 1 unit Admin: 01/20/18 17:58 Dose: Not Given Admin: 01/20/18 12:02 Dose: Not Given Admin: 01/20/18 07:33 Dose: Admin: 01/19/18 21:10 Dose: Admin: 01/19/18 17:54 Dose: Not Given Levothyroxine Sodium (Synthroid) 100 mcg PO DAILY@0600 [facility] Last Admin: 01/25/18 05:41 Dose: 100 mcg Admin: 01/24/18 06:22 Dose: 100 mcg Admin: 01/23/18 05:41 Dose: 100 mcg Admin: 01/22/18 06:04 Dose: 100 mcg Admin: 01/21/18 05:28 Dose: 100 mcg Admin: 01/20/18 06:35 Dose: 100 mcg Admin: 01/19/18 14:19 Dose: 100 mcg Losartan Potassium (Cozaar) 100 mg PO BEDTIME [facility] Last Admin: 01/24/18 21:28 Dose: 100 mg Admin: 01/23/18 20:09 Dose: 100 mg Admin: 01/22/18 20:36 Dose: 100 mg Magnesium Hydroxide (Milk Of Magnesia) 30 ml PO Q12H PRN PRN Reason: Constipation Last Admin: 01/22/18 18:14 Dose: 30 ml Memantine (Namenda) 5 mg PO DAILY [facility] Last Admin: 01/25/18 08:02 Dose: 5 mg Admin: 01/24/18 09:28 Dose: 5 mg Admin: 01/23/18 09:23 Dose: 5 mg Admin: 01/22/18 09:36 Dose: 5 mg Admin: 01/21/18 08:10 Dose: 5 mg Admin: 01/20/18 09:37 Dose: 5 mg Admin: 01/19/18 14:19 Dose: 5 mg Metformin HCl (Glucophage) 500 mg PO BIDMEALS [facility] Metoprolol Succinate (Toprol Xl) 25 mg PO DAILY [facility] Last Admin: 01/25/18 08:01 Dose: 25 mg Admin: 01/24/18 09:31 Dose: 25 mg Admin: 01/23/18 09:23 Dose: 25 mg Admin: 01/22/18 09:35 Dose: 25 mg Metoprolol Tartrate (Lopressor) 5 mg IVPUSH Q4H PRN PRN Reason: Hypertension Last Admin: 01/21/18 09:45 Dose: 5 mg Admin: 01/19/18 18:03 Dose: 5 mg Naloxone HCl (Narcan) 0.1 mg IVPUSH Q5M PRN PRN Reason: Oversedation Ondansetron HCl (Zofran) 4 mg IVPUSH Q4H PRN PRN Reason: Nausea/Vomiting Last Admin: 01/20/18 23:35 Dose: 4 mg Admin: 01/20/18 16:53 Dose: 4 mg Admin: 01/19/18 21:15 Dose: 4 mg Admin: 01/19/18 13:10 Dose: 4 mg Imatinib Mesylate [ (Gleevec] 600 Mg) 0 each PO DAILY [facility] Last Admin: 01/25/18 08:03 Dose: 600 each Admin: 01/24/18 09:29 Dose: 600 each Admin: 01/23/18 09:26 Dose: 600 each Admin: 01/22/18 09:38 Dose: 600 each Admin: 01/21/18 08:12 Dose: 600 each Admin: 01/20/18 09:38 Dose: 600 each Loxapine 50 Mg 0 each PO BEDTIME [facility] Last Admin: 01/24/18 21:29 Dose: 50 each Admin: 01/23/18 20:10 Dose: 50 each Admin: 01/22/18 20:38 Dose: 50 each Admin: 01/21/18 20:37 Dose: 50 each Admin: 01/20/18 20:46 Dose: 50 each Admin: 01/19/18 20:03 Dose: 50 each Loxapine 25 Mg 0 each PO DAILY@1800 [facility] Last Admin: 01/24/18 19:27 Dose: 1 each Admin: 01/24/18 18:45 Dose: Admin: 01/23/18 18:36 Dose: 1 each Admin: 01/22/18 18:13 Dose: 1 each Admin: 01/21/18 18:08 Dose: 1 each Admin: 01/20/18 18:03 Dose: 1 each Admin: 01/19/18 17:40 Dose: 25 each Polyethylene Glycol (Miralax) 17 gm PO DAILY PRN PRN Reason: Constipation Senna/Docusate Sodium (Senna Plus) 1 tab PO BID PRN PRN Reason: Constipation Simvastatin (Zocor) 10 mg PO BEDTIME [facility] Last Admin: 01/24/18 21:29 Dose: 10 mg Admin: 01/23/18 20:06 Dose: 10 mg Admin: 01/22/18 20:36 Dose: 10 mg Admin: 01/21/18 20:34 Dose: 10 mg Admin: 01/20/18 20:46 Dose: 10 mg Admin: 01/19/18 20:01 Dose: 10 mg Sodium Chloride (Saline Flush) 10 ml FLUSH ONETIME PRN PRN Reason: IV FLUSH Last Admin: 01/21/18 18:06 Dose: 10 ml Admin: 01/19/18 15:49 Dose: 10 ml Spironolactone (Aldactone) 25 mg PO DAILY [facility] Last Admin: 01/25/18 08:01 Dose: 25 mg Admin: 01/24/18 09:27 Dose: 25 mg Admin: 01/23/18 09:23 Dose: 25 mg Admin: 01/22/18 09:35 Dose: 25 mg Admin: 01/21/18 08:10 Dose: 25 mg Admin: 01/20/18 09:37 Dose: 25 mg Temazepam (Restoril) 15 mg PO BEDTIME [facility] Last Admin: 01/24/18 22:40 Dose: Not Given Tramadol HCl (Ultram) 50 mg PO Q8H [facility] Last Admin: 01/25/18 03:40 Dose: 50 mg Admin: 01/24/18 18:44 Dose: 50 mg Admin: 01/24/18 11:59 Dose: 50 mg Admin: 01/24/18 02:02 Dose: 50 mg Admin: 01/23/18 18:36 Dose: 50 mg Admin: 01/23/18 11:56 Dose: 50 mg Admin: 01/23/18 02:14 Dose: 50 mg Admin: 01/22/18 18:13 Dose: 50 mg Admin: 01/22/18 11:43 Dose: 50 mg Admin: 01/22/18 02:55 Dose: 50 mg Admin: 01/21/18 20:37 Dose: 50 mg Admin: 01/21/18 11:02 Dose: 50 mg Admin: 01/21/18 04:20 Dose: 50 mg Admin: 01/20/18 18:03 Dose: 50 mg Admin: 01/20/18 10:33 Dose: 50 mg Admin: 01/20/18 02:56 Dose: 50 mg Admin: 01/19/18 18:04 Dose: 50 mg Admin: 01/19/18 11:17 Dose: 50 mg Trazodone HCl (Trazodone) 100 mg PO BEDTIME [facility] Last Admin: 01/24/18 21:33 Dose: 100 mg Admin: 01/23/18 20:06 Dose: 100 mg Admin: 01/22/18 20:35 Dose: 100 mg Admin: 01/21/18 20:35 Dose: 100 mg Admin: 01/20/18 20:46 Dose: 100 mg Admin: 01/19/18 20:01 Dose: 100 mg - Assessment Assessment (Free Text/Narrative):: POD#5 - s/p IM nail placement for left femur fracture - Plan Plan (Free Text/Narrative):: 1. Orders per Hospitalist service. 2. The pt is making progress with mobility with therapy. 3. Discharge when NH placement available. The pt's case was discussed with Dr. Lanza.
--- NOTE | 2018-01-25 12:55 | PCM.PN ---
- General Info Date of Service: 01/25/18 Admission Dx/Problem (Free Text): Admission Diagnosis/Problem Admission Diagnosis/Problem Fall at home Subjective Update: In to see Francoise today. She is sitting in a chair. POD 5 s/p left femoral fracture repair. Overall she is doing quite well. She is no longer constipated and says walking around has made her feel much better. She has been sleeping well. Good appetite. Ambulating as tolerated. Pain is controlled. No Nausea or vomiting. Urinating. Incentive Spirometry. No concerns from nursing. Will be DC d to SNF for rehab once we are able to get placement. Functional Status: Reports: Pain Controlled, Tolerating Diet, Ambulating, Urinating - Review of Systems General: Reports: No Symptoms. Denies: Fever, Chills HEENT: Reports: No Symptoms Pulmonary: Reports: Shortness of Breath. Denies: Pleuritic Chest Pain, Cough, Wheezing Cardiovascular: Reports: Dyspnea on Exertion, Edema (1+ both legs, L>R s/p L femur surgery) Gastrointestinal: Reports: No Symptoms. Denies: Abdominal Pain, Constipation, Diarrhea, Nausea, Vomiting Genitourinary: Reports: No Symptoms. Denies: Dysuria, Frequency, Burning, Pain Musculoskeletal: Reports: Joint Pain (s/p L femur surgery) Skin: Reports: No Symptoms Neurological: Reports: No Symptoms Psychiatric: Reports: No Symptoms - Patient Data Vitals - Most Recent: Last Vital Signs Temp 98 F 01/25/18 07:52 Pulse 87 01/25/18 08:01 Resp 18 01/25/18 07:52 BP 138/50 L 01/25/18 08:01 Pulse Ox 99 01/25/18 07:52 Weight - Most Recent: 195 lb 9.6 oz I&O - Last 24 Hours: Intake & Output 01/24/18 01/25/18 01/25/18 22:59 06:59 14:59 Intake Total 520 550 360 Balance 520 550 360 Lab Results Last 24 Hours: Laboratory Results - last 24 hr 01/24/18 01/24/18 01/25/18 Range/Units 16:45 21:14 05:44 WBC (3.98-10.04) K/mm3 RBC (3.98-5.22) M/mm3 Hgb (11.2-15.7) gm/L Hct (34.1-44.9) % MCV (79.4-94.8) fl MCH (25.6-32.2) pg MCHC (32.2-35.5) g/dl RDW Std Deviation (36.4-46.3) fL Plt Count (182-369) K/mm3 MPV (9.4-12.3) fl Neut % (Auto) (34.0-71.1) % Lymph % (Auto) (19.3-51.7) % [place] % (Auto) (4.7-12.5) % Eos % (Auto) (0.7-5.8) Baso % (Auto) (0.1-1.2) % Neut # (Auto) (1.56-6.13) K/mm3 Lymph # (Auto) (1.18-3.74) K/mm3 [place] # (Auto) (0.24-0.36) K/mm3 Eos # (Auto) (0.04-0.36) K/mm3 Baso # (Auto) (0.01-0.08) K/mm3 Sodium (136-145) mEq/L Potassium (3.5-5.1) mEq/L Chloride (98-107) mEq/L Carbon Dioxide (21-32) mEq/L Anion Gap (5-15) BUN (7-18) mg/dL Creatinine (0.55-1.02) mg/dL Est Cr Clr Drug Dosing mL/min Estimated GFR (MDRD) (>60) mL/min BUN/Creatinine Ratio (14-18) Glucose (80-115) mg/dL POC Glucose 150 H 153 H 126 H (80-115) mg/dL Lactic Acid (0.4-2.0) mmol/L Calcium (8.5-10.1) mg/dL Magnesium (1.8-2.4) mg/dl Total Bilirubin (0.2-1.0) mg/dL AST (15-37) U/L ALT (14-59) U/L Alkaline Phosphatase (46-116) U/L C-Reactive Protein (<1.0) mg/dL NT-Pro-B Natriuret Pep (0-125) pg/mL Total Protein (6.4-8.2) g/dl Albumin (3.4-5.0) g/dl Globulin gm/dL Albumin/Globulin Ratio (1-2) 01/25/18 01/25/18 01/25/18 Range/Units 05:45 05:45 05:45 WBC 6.77 (3.98-10.04) K/mm3 RBC 2.74 L (3.98-5.22) M/mm3 Hgb 8.9 L (11.2-15.7) gm/L Hct 26.8 L (34.1-44.9) % MCV 97.8 H (79.4-94.8) fl MCH 32.5 H (25.6-32.2) pg MCHC 33.2 (32.2-35.5) g/dl RDW Std Deviation 52.4 H (36.4-46.3) fL Plt Count 180 L (182-369) K/mm3 MPV 9.3 L (9.4-12.3) fl Neut % (Auto) 52.6 (34.0-71.1) % Lymph % (Auto) 27.9 (19.3-51.7) % [place] % (Auto) 12.0 (4.7-12.5) % Eos % (Auto) 6.6 H (0.7-5.8) Baso % (Auto) 0.6 (0.1-1.2) % Neut # (Auto) 3.56 (1.56-6.13) K/mm3 Lymph # (Auto) 1.89 (1.18-3.74) K/mm3 [place] # (Auto) 0.81 H (0.24-0.36) K/mm3 Eos # (Auto) 0.45 H (0.04-0.36) K/mm3 Baso # (Auto) 0.04 (0.01-0.08) K/mm3 Sodium 133 L (136-145) mEq/L Potassium 4.4 (3.5-5.1) mEq/L Chloride 102 (98-107) mEq/L Carbon Dioxide 27 (21-32) mEq/L Anion Gap 8.4 (5-15) BUN 33 H (7-18) mg/dL Creatinine 1.3 H (0.55-1.02) mg/dL Est Cr Clr Drug Dosing 32.23 mL/min Estimated GFR (MDRD) 42 (>60) mL/min BUN/Creatinine Ratio 25.4 H (14-18) Glucose 131 H (80-115) mg/dL POC Glucose (80-115) mg/dL Lactic Acid 1.2 (0.4-2.0) mmol/L Calcium 8.1 L (8.5-10.1) mg/dL Magnesium 2.2 (1.8-2.4) mg/dl Total Bilirubin 1.2 H (0.2-1.0) mg/dL AST 52 H (15-37) U/L ALT 25 (14-59) U/L Alkaline Phosphatase 90 (46-116) U/L C-Reactive Protein 2.5 H* (<1.0) mg/dL NT-Pro-B Natriuret Pep (0-125) pg/mL Total Protein 5.3 L (6.4-8.2) g/dl Albumin 2.4 L (3.4-5.0) g/dl Globulin 2.9 gm/dL Albumin/Globulin Ratio 0.8 L (1-2) 18 Range/Units 05:45 WBC (3.98-10.04) K/mm3 RBC (3.98-5.22) M/mm3 Hgb (11.2-15.7) gm/L Hct (34.1-44.9) % MCV (79.4-94.8) fl MCH (25.6-32.2) pg MCHC (32.2-35.5) g/dl RDW Std Deviation (36.4-46.3) fL Plt Count (182-369) K/mm3 MPV (9.4-12.3) fl Neut % (Auto) (34.0-71.1) % Lymph % (Auto) (19.3-51.7) % [place] % (Auto) (4.7-12.5) % Eos % (Auto) (0.7-5.8) Baso % (Auto) (0.1-1.2) % Neut # (Auto) (1.56-6.13) K/mm3 Lymph # (Auto) (1.18-3.74) K/mm3 [place] # (Auto) (0.24-0.36) K/mm3 Eos # (Auto) (0.04-0.36) K/mm3 Baso # (Auto) (0.01-0.08) K/mm3 Sodium (136-145) mEq/L Potassium (3.5-5.1) mEq/L Chloride (98-107) mEq/L Carbon Dioxide (21-32) mEq/L Anion Gap (5-15) BUN (7-18) mg/dL Creatinine (0.55-1.02) mg/dL Est Cr Clr Drug Dosing mL/min Estimated GFR (MDRD) (>60) mL/min BUN/Creatinine Ratio (14-18) Glucose (80-115) mg/dL POC Glucose (80-115) mg/dL Lactic Acid (0.4-2.0) mmol/L Calcium (8.5-10.1) mg/dL Magnesium (1.8-2.4) mg/dl Total Bilirubin (0.2-1.0) mg/dL AST (15-37) U/L ALT (14-59) U/L Alkaline Phosphatase (46-116) U/L C-Reactive Protein (<1.0) mg/dL NT-Pro-B Natriuret Pep 722 H (0-125) pg/mL Total Protein (6.4-8.2) g/dl Albumin (3.4-5.0) g/dl Globulin gm/dL Albumin/Globulin Ratio (1-2) Med Orders - Current: Current Medications Acetaminophen (Tylenol) 650 mg PO Q6H PRN PRN Reason: Pain/Fever Last Admin: 01/20/18 08:27 Dose: 650 mg Hydrocodone Bitart/Acetaminophen (Mather 325-5 Mg) 1 - 2 tab PO Q4H PRN PRN Reason: Pain Last Admin: 01/24/18 21:26 Dose: 2 tab Albuterol (Proventil Neb Soln) 2.5 mg NEB Q2H PRN PRN Reason: Shortness Of Breath/wheezing Albuterol/Ipratropium (Duoneb 3.0-0.5 Mg/3 Ml) 3 ml NEB Q4H PRN PRN Reason: Shortness Of Breath/wheezing Artificial Tears (Isopto Tears 0.5% Ophth Soln) 0 ml EYEBOTH BID [facility] Last Admin: 01/25/18 08:00 Dose: 1 drop Bisacodyl (Dulcolax) 5 mg PO DAILY PRN PRN Reason: Constipation Last Admin: 01/22/18 09:35 Dose: 5 mg Clonidine HCl (Catapres) 0.3 mg PO BID [facility] Last Admin: 01/25/18 08:01 Dose: 0.3 mg Cyclobenzaprine HCl (Flexeril) 10 mg PO TID PRN PRN Reason: Muscle Spasm Last Admin: 01/23/18 09:43 Dose: 10 mg Dextrose/Water (Dextrose 50% In Water) 50 ml IVPUSH ASDIRECTED PRN PRN Reason: Hypoglycemia Diphenhydramine HCl (Benadryl) 25 mg IVPUSH Q6H PRN PRN Reason: Pruritis Last Admin: 01/20/18 23:35 Dose: 25 mg Docusate Sodium (Colace) 100 mg PO BID PRN PRN Reason: Constipation Docusate Sodium (Colace) 100 mg PO BID [facility] Last Admin: 01/25/18 08:02 Dose: 100 mg Enoxaparin Sodium (Lovenox) 40 mg SUBCUT DAILY [facility] Last Admin: 01/25/18 08:01 Dose: 40 mg Famotidine (Pepcid) 20 mg PO DAILY [facility] Last Admin: 01/25/18 08:01 Dose: 20 mg Furosemide (Lasix) 40 mg PO DAILY [facility] Last Admin: 01/25/18 08:01 Dose: 40 mg Hydralazine HCl (Apresoline) 20 mg IVPUSH Q6H PRN PRN Reason: Hypertension Last Admin: 01/23/18 02:14 Dose: 20 mg Hydromorphone HCl (Dilaudid) 0.5 mg IVPUSH Q4H PRN PRN Reason: Pain Last Admin: 01/22/18 22:28 Dose: 0.5 mg Insulin Aspart (Novolog) 0 unit SUBCUT QIDACANDBED [facility]; Protocol Last Admin: 01/25/18 06:08 Dose: Not Given Levothyroxine Sodium (Synthroid) 100 mcg PO DAILY@0600 [facility] Last Admin: 01/25/18 05:41 Dose: 100 mcg Losartan Potassium (Cozaar) 100 mg PO BEDTIME [facility] Last Admin: 01/24/18 21:28 Dose: 100 mg Magnesium Hydroxide (Milk Of Magnesia) 30 ml PO Q12H PRN PRN Reason: Constipation Last Admin: 01/22/18 18:14 Dose: 30 ml Memantine (Namenda) 5 mg PO DAILY [facility] Last Admin: 01/25/18 08:02 Dose: 5 mg Metformin HCl (Glucophage) 500 mg PO BIDMEALS [facility] Metoprolol Succinate (Toprol Xl) 25 mg PO DAILY [facility] Last Admin: 01/25/18 08:01 Dose: 25 mg Metoprolol Tartrate (Lopressor) 5 mg IVPUSH Q4H PRN PRN Reason: Hypertension Last Admin: 01/21/18 09:45 Dose: 5 mg Naloxone HCl (Narcan) 0.1 mg IVPUSH Q5M PRN PRN Reason: Oversedation Ondansetron HCl (Zofran) 4 mg IVPUSH Q4H PRN PRN Reason: Nausea/Vomiting Last Admin: 01/20/18 23:35 Dose: 4 mg Imatinib Mesylate [ (Gleevec] 600 Mg) 0 each PO DAILY [facility] Last Admin: 01/25/18 08:03 Dose: 600 each Loxapine 50 Mg 0 each PO BEDTIME [facility] Last Admin: 01/24/18 21:29 Dose: 50 each Loxapine 25 Mg 0 each PO DAILY@1800 [facility] Last Admin: 01/24/18 19:27 Dose: 1 each Polyethylene Glycol (Miralax) 17 gm PO DAILY PRN PRN Reason: Constipation Senna/Docusate Sodium (Senna Plus) 1 tab PO BID PRN PRN Reason: Constipation Simvastatin (Zocor) 10 mg PO BEDTIME [facility] Last Admin: 01/24/18 21:29 Dose: 10 mg Sodium Chloride (Saline Flush) 10 ml FLUSH ONETIME PRN PRN Reason: IV FLUSH Last Admin: 01/21/18 18:06 Dose: 10 ml Spironolactone (Aldactone) 25 mg PO DAILY [facility] Last Admin: 01/25/18 08:01 Dose: 25 mg Temazepam (Restoril) 15 mg PO BEDTIME [facility] Last Admin: 01/24/18 22:40 Dose: Not Given Tramadol HCl (Ultram) 50 mg PO Q8H [facility] Last Admin: 01/25/18 03:40 Dose: 50 mg Trazodone HCl (Trazodone) 100 mg PO BEDTIME [facility] Last Admin: 01/24/18 21:33 Dose: 100 mg Discontinued Medications Albuterol (Proventil Neb Soln) 2.5 mg NEB ONETIME ONE Stop: 01/20/18 13:58 Last Admin: 01/20/18 19:13 Dose: Not Given Artificial Tears (Isopto Tears 0.5% Ophth Soln) 0 ml EYEBOTH BID [facility] Last Admin: 01/19/18 15:00 Dose: Not Given Artificial Tears (Isopto Tears 0.5% Ophth Soln) 0 ml EYEBOTH BID [facility] Last Admin: 01/19/18 14:20 Dose: 1 drop Bisacodyl (Dulcolax) 10 mg RECTAL ONETIME ONE Stop: 01/23/18 06:12 Last Admin: 01/23/18 06:25 Dose: 10 mg Bupivacaine HCl (Sensorcaine-Mpf 0.75%) Confirm Administered Dose 30 ml .ROUTE .STK-MED ONE Stop: 01/20/18 11:45 Bupivacaine HCl (Marcaine 0.25%) Confirm Administered Dose 30 ml .ROUTE .STK- MED ONE Stop: 01/20/18 12:15 Last Admin: 01/20/18 13:48 Dose: 30 ml Cefazolin Sodium (Ancef) Confirm Administered Dose 2 gm .ROUTE .STK-MED ONE Stop: 01/20/18 11:46 Clonidine HCl (Catapres) 0.3 mg PO BID [facility] Clonidine HCl (Catapres) 0.1 mg PO ONETIME ONE Stop: 01/19/18 19:38 Last Admin: 01/19/18 19:59 Dose: 0.1 mg Clonidine HCl (Catapres) 0.1 mg PO Q8H [facility] Last Admin: 01/22/18 04:14 Dose: 0.1 mg Dextrose (Glutose 15) 15 gm PO ASDIRECTED PRN PRN Reason: LOW BS Famotidine (Pepcid) 20 mg PO BID [facility] Last Admin: 01/19/18 13:10 Dose: 20 mg Famotidine (Pepcid) 20 mg PO Q12H [facility] Last Admin: 01/20/18 17:13 Dose: Not Given Famotidine (Pepcid) 20 mg PO BID@0600,1800 [facility] Last Admin: 01/21/18 05:28 Dose: 20 mg Fentanyl (Sublimaze) Confirm Administered Dose 100 mcg .ROUTE .STK-MED ONE Stop: 01/20/18 11:46 Fentanyl (Sublimaze) 50 mcg IVPUSH Q5M PRN PRN Reason: Pain Furosemide (Lasix) 40 mg PO TID [facility] Last Admin: 01/19/18 14:19 Dose: 40 mg Furosemide (Lasix) 40 mg PO TID [facility] Furosemide (Lasix) 40 mg PO DAILY [facility] Furosemide (Lasix) 40 mg IVPUSH NOW ONE Stop: 01/20/18 05:01 Last Admin: 01/20/18 06:00 Dose: 40 mg Furosemide (Lasix) 40 mg IVPUSH ONETIME ONE Stop: 01/21/18 12:01 Last Admin: 01/21/18 13:27 Dose: 40 mg Hydromorphone HCl (Dilaudid) 1 mg IVPUSH ONETIME ONE Stop: 01/19/18 05:25 Last Admin: 01/19/18 05:48 Dose: 1 mg Hydromorphone HCl (Dilaudid) 0.5 mg IVPUSH ONETIME ONE Stop: 01/19/18 07:33 Last Admin: 01/19/18 07:53 Dose: 0.5 mg Hydromorphone HCl (Dilaudid) 0.5 mg IM ONETIME ONE Stop: 01/21/18 13:18 Last Admin: 01/21/18 13:15 Dose: Not Given Sodium Chloride (Normal Saline) 1,000 mls @ 250 mls/hr IV ASDIRECTED [facility] Last Admin: 01/19/18 05:47 Dose: 250 mls/hr Lactated Ringer's (Ringers, Lactated) 1,000 mls @ 125 mls/hr IV ASDIRECTED [facility] Last Infusion: 01/20/18 12:30 Dose: 0 mls/hr Vancomycin HCl 1 gm/ Sodium (Chloride) 250 mls @ 250 mls/hr IV ONETIME ONE Stop: 01/20/18 14:14 Last Admin: 01/20/18 19:13 Dose: Not Given Sodium Chloride (Normal Saline) Confirm Administered Dose 100 mls @ as directed .ROUTE .[facility]-MED ONE Stop: 01/20/18 14:00 Lactated Ringer's (Ringers, Lactated) Confirm Administered Dose 1,000 mls @ as directed .ROUTE .[facility] ONE Stop: 01/20/18 14:49 Lactated Ringer's (Ringers, Lactated) Confirm Administered Dose 1,000 mls @ as directed .ROUTE .STK-MED ONE Stop: 01/20/18 14:49 Cefazolin Sodium/Dextrose 2 gm (/ Premix) 50 mls @ 100 mls/hr IV Q8H [facility] Stop: 01/21/18 12:29 Last Admin: 01/21/18 11:04 Dose: 100 mls/hr Sodium Chloride (Normal Saline) 500 mls @ 75 mls/hr IV ONETIME ONE Stop: 01/21/18 17:39 Last Admin: 01/21/18 11:44 Dose: 75 mls/hr Iopamidol (Isovue-300 (61%)) 100 ml IVPUSH ONETIME ONE Stop: 01/19/18 15:46 Last Admin: 01/19/18 15:49 Dose: 100 ml Ketamine HCl (Ketalar) Confirm Administered Dose 500 mg .ROUTE .STK-MED ONE Stop: 01/20/18 11:47 Ketorolac Tromethamine (Toradol) 15 mg IVPUSH Q6H [facility] Stop: 01/20/18 17:01 Last Admin: 01/20/18 18:02 Dose: 15 mg Levothyroxine Sodium (Synthroid) 100 mcg PO DAILY [facility] Last Admin: 01/22/18 09:41 Dose: Not Given Lidocaine HCl (Xylocaine-Mpf 1%) Confirm Administered Dose 5 ml .ROUTE .STK-MED ONE Stop: 01/20/18 12:33 Losartan Potassium (Cozaar) 100 mg PO DAILY [facility] Last Admin: 01/19/18 14:19 Dose: 100 mg Metoprolol Succinate (Toprol Xl) 25 mg PO DAILY [facility] Last Admin: 01/19/18 14:14 Dose: 25 mg Midazolam HCl (Versed 1 Mg/Ml) Confirm Administered Dose 2 mg .ROUTE .STK-MED ONE Stop: 01/20/18 11:46 Midazolam HCl (Versed 1 Mg/Ml) Confirm Administered Dose 2 mg .ROUTE .STK-MED ONE Stop: 01/20/18 13:28 Morphine Sulfate (Duramorph Pf) Confirm Administered Dose 1 mg .ROUTE .STK-MED ONE Stop: 01/20/18 12:28 Naloxone HCl (Narcan) 0.5 mg IVPUSH ONETIME ONE Stop: 01/19/18 17:04 Last Admin: 01/19/18 17:28 Dose: 0.5 mg Non-Formulary Medication (Acetaminophen) 650 mg PO Q8H PRN PRN Reason: Pain Ondansetron HCl (Zofran) 4 mg IVPUSH ONETIME ONE Stop: 01/19/18 05:25 Last Admin: 01/19/18 05:47 Dose: 4 mg Ondansetron HCl (Zofran) 4 mg IVPUSH ONETIME PRN PRN Reason: Nausea/Vomiting Ondansetron HCl (Zofran) Confirm Administered Dose 4 mg .ROUTE .STK-MED ONE Stop: 01/20/18 14:49 Pantoprazole Sodium (Protonix Iv) 40 mg IVPUSH DAILY [facility] Pantoprazole Sodium (Protonix Iv) 40 mg IVPUSH BID [facility] Last Admin: 01/20/18 09:37 Dose: 40 mg Loxapine 25 Mg 0 each PO DAILY@1400 [facility] Last Admin: 01/19/18 15:00 Dose: Not Given Phenylephrine HCl (Rodney-Synephrine) Confirm Administered Dose 10 mg .ROUTE .STK- MED ONE Stop: 01/20/18 14:00 Phenylephrine HCl (Phenylephrine In Ns 100 Mcg/Ml) Confirm Administered Dose 1 mg .ROUTE .STK-MED ONE Stop: 01/20/18 14:01 Propofol (Diprivan 20 Ml) Confirm Administered Dose 600 mg .ROUTE .STK-MED ONE Stop: 01/20/18 11:46 Temazepam (Restoril) 30 mg PO BEDTIME [facility] Temazepam (Restoril) 7.5 mg PO BEDTIME [facility] Last Admin: 01/24/18 21:26 Dose: 7.5 mg Temazepam (Restoril) 7.5 mg PO ONETIME ONE Stop: 01/24/18 22:03 Last Admin: 01/24/18 22:40 Dose: 7.5 mg - Exam Quality Assessment: DVT Prophylaxis General: Alert, Oriented, Cooperative, No Acute Distress HEENT: Pupils Equal, Pupils Reactive, EOMI, Mucous Membr. Moist/[place] Neck: Supple Lungs: Clear to Auscultation, Normal Respiratory Effort, Decreased Breath Sounds. No: Wheezing Cardiovascular: Regular Rate, Regular Rhythm GI/Abdominal Exam: Normal Bowel Sounds, Soft, Non-Tender, No Organomegaly, No Distention, No Abnormal Bruit, No Mass, Pelvis Stable (Female) Exam: Deferred Back Exam: Normal Inspection, Full Range of Motion Extremities: Normal Inspection, Normal Range of Motion, Non-Tender, Normal Capillary Refill, Pedal Edema (1+ bilaterally, L>R s/p L femur surgery) Peripheral Pulses: 1+: Posterior Tibial (L), Posterior Tibial (R), Dorsalis Pedis (L), Dorsalis Pedis (R) Skin: Warm, Dry, Intact Wound/Incisions: Healing Well, Dressing Dry and Intact, No Drainage Neurological: No New Focal Deficit Psy/Mental Status: Alert, Normal Affect, Normal Mood - Problem List & Annotations (1) Fracture of proximal end of femur SNOMED Code(s): 272461557 Code(s): S72.009A - FRACTURE OF UNSP PART OF NECK OF UNSP FEMUR, INIT Status: Acute Priority: High Current Visit: Yes Qualifiers: Encounter type: initial encounter Fracture type: closed Laterality: left Qualified Code(s): S72.002A - Fracture of unspecified part of neck of left femur, initial encounter for closed fracture (2) Anemia SNOMED Code(s): 094842208 Code(s): D64.9 - ANEMIA, UNSPECIFIED Status: Chronic Priority: Medium Current Visit: Yes Qualifiers: 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 type: pancytopenia, antineoplastic chemotherapy-induced Qualified Code(s): D61.810 - Antineoplastic chemotherapy induced pancytopenia; T45.1X5A - Adverse effect of antineoplastic and immunosuppressive drugs, initial encounter (3) Congestive heart failure SNOMED Code(s): 71334423 Code(s): I50.9 - HEART FAILURE, UNSPECIFIED Status: Chronic Priority: Medium Current Visit: Yes Qualifiers: Heart failure type: diastolic Heart failure chronicity: chronic Qualified Code(s): I50.32 - Chronic diastolic (congestive) heart failure (4) Hyponatremia SNOMED Code(s): 85930420 Code(s): E87.1 - HYPO-OSMOLALITY AND HYPONATREMIA Status: Chronic Priority: Medium Current Visit: Yes (5) Renal insufficiency SNOMED Code(s): 384944820, 334037025 Code(s): N28.9 - DISORDER OF KIDNEY AND URETER, UNSPECIFIED Status: Chronic Priority: High Current Visit: Yes (6) Traumatic brain injury SNOMED Code(s): 901109504 Code(s): S06.9X9A - UNSP INTRACRANIAL INJURY W LOC OF UNSP DURATION, INIT Status: Chronic Priority: Low Current Visit: Yes Qualifiers: Encounter type: subsequent encounter Loss of consciousness presence/ duration: with LOC of unspecified duration Qualified Code(s): S06.9X9D - Unspecified intracranial injury with loss of consciousness of unspecified duration, subsequent encounter (7) Type 2 diabetes mellitus SNOMED Code(s): 98548328 Code(s): E11.9 - TYPE 2 DIABETES MELLITUS WITHOUT COMPLICATIONS Status: Chronic Priority: Medium Current Visit: Yes Qualifiers: 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 insulin use status Diabetes mellitus complication status: with unspecified complications Qualified Code(s): E11.8 - Type 2 diabetes mellitus with unspecified complications - Problem List Review Problem List Initiated/Reviewed/Updated: Yes - My Orders Last 24 Hours: My Active Orders 01/26/18 05:11 C-REACTIVE PROTEIN [CHEM] AM CBC WITH AUTO DIFF [HEME] AM COMPREHENSIVE METABOLIC PN,CMP [CHEM] AM LACTIC ACID [CHEM] AM MAGNESIUM [CHEM] AM 01/26/18 14:45 PRO B-TYPE NATRIUR PEPT,BNPPRO [CHEM] DAILY 01/27/18 05:11 C-REACTIVE PROTEIN [CHEM] AM CBC WITH AUTO DIFF [HEME] AM COMPREHENSIVE METABOLIC PN,CMP [CHEM] AM LACTIC ACID [CHEM] AM MAGNESIUM [CHEM] AM 01/27/18 14:45 PRO B-TYPE NATRIUR PEPT,BNPPRO [CHEM] DAILY 01/28/18 05:11 C-REACTIVE PROTEIN [CHEM] AM CBC WITH AUTO DIFF [HEME] AM COMPREHENSIVE METABOLIC PN,CMP [CHEM] AM LACTIC ACID [CHEM] AM MAGNESIUM [CHEM] AM 01/28/18 14:45 PRO B-TYPE NATRIUR PEPT,BNPPRO [CHEM] DAILY - Plan Plan:: I/P: Acute: Fracture of proximal end of femur, s/p fall ; POD 5: IM paul placement for left femoral shaft fracture -Pain controlled -Stable condition -Pain medication PRN -Bedrest, PT/OT after surgery -Continue supportive care Hyponatremia -Na 130--> 132 -->130-->133 -Monitor Hyperemesis--resolved -Risk factor: chemotherapy -Zofran Q4H -IV lactated ringers Chronic: Anemia, Thrombocytopenia- improving -RBC 2.96-->2.74, Hgb 9.4-->8.9, HCT 28.7-->26.8, RDW 51.8-->52.4 -Plt 173-->180 -Monitor -Blood Type and Screen ordered -Replenish with PRBCs as needed CKD stage III -eGFR 47-->50-->46-->42 -Creatinine 1.7-->1.1-->1.2-->1.3 -NS IV started in ED--> D/C and start LR IV -Defer to PCP for f/u Diabetes Type II -Blood Glucose Checks QID -Continue at home Metformin 500mg -Sliding scale Insulin -A1C ordered -ADA diet after surgery -Defer to PCP for f/u CHF -BNP 236-->1891-->1366-->2548-->2782-->1166-->722 -Continue at home Lasix 40mg TID -Monitor Traumatic Brain Injury Leukemia --> Continue at home Gleevec 600mg here HTN--home meds restarted Plan: Transfered to Med-Surg telemetry unit She remains stable Continue at home meds as above Consult with Dr. Lanza for surgery Other orders as indicated above CM/SW for discharge planning Routine AM labs Continue PT/OT DVT Prophylaxis: SCD Ready to D/C pending SNF placement for rehabilitation--> Gleevec is causing issues with placement Code Status: Full code (CPR, Defib, Intubation)- However "No life sustaining treatment on machines" -per Sister Beti, Power of Helpdesk Analyst PCP: Dr. Cespedes LOS > 96hrs due to difficulty with SNF rehabilitation placement
[2018-01-25] MEDS: LOXAPINE 25 MG PO SCH (17:26)
[2018-01-25] MEDS: Simvastatin 10 MG Tab PO SCH (20:49)
[2018-01-25] MEDS: Losartan 100 MG Tab PO SCH (20:49)
[2018-01-25] MEDS: traZODone 50 MG Tab PO SCH (20:50)
[2018-01-25] MEDS: Temazepam 15 MG Cap PO SCH (20:50)
[2018-01-26] MEDS: traMADol 50 MG Tab PO SCH ×3 (02:24→18:08)
[2018-01-26] MEDS: Levothyroxine 100 MCG Tab PO SCH (06:35)
--- NOTE | 2018-01-26 09:12 | PCM.PN ---
- General Info Date of Service: 01/26/18 Admission Dx/Problem (Free Text): Admission Diagnosis/Problem Admission Diagnosis/Problem Fall at home Subjective Update: In to see Francoise today. She is sitting in a chair. POD 6 s/p left femoral fracture repair. Overall she is doing quite well. She says walking around has made her feel much better. She has been sleeping well. Good appetite. Ambulating as tolerated. Pain is controlled. No Nausea or vomiting. Urinating. Incentive Spirometry. No concerns from nursing. Will be DCd to SNF for rehab once we are able to get placement. Functional Status: Reports: Pain Controlled, Tolerating Diet, Ambulating, Urinating - Review of Systems General: Reports: No Symptoms. Denies: Fever, Fatigue, Chills HEENT: Reports: No Symptoms Pulmonary: Reports: Shortness of Breath (on exertion) Cardiovascular: Reports: Dyspnea on Exertion, Edema (1+ both legs, L>R s/p L femur surgery). Denies: Chest Pain, Palpitations Gastrointestinal: Reports: No Symptoms. Denies: Abdominal Pain, Constipation, Diarrhea, Nausea, Vomiting Genitourinary: Reports: No Symptoms. Denies: Dysuria, Frequency, Burning, Pain , Urgency Musculoskeletal: Reports: Joint Pain (s/p L femur surgery) Skin: Reports: No Symptoms Neurological: Reports: No Symptoms Psychiatric: Reports: No Symptoms - Patient Data Vitals - Most Recent: Last Vital Signs Temp 98.8 F 01/26/18 02:23 Pulse 79 01/26/18 02:23 Resp 20 01/26/18 02:23 BP 112/30 L 01/26/18 02:24 Pulse Ox 97 01/26/18 02:23 Weight - Most Recent: 193 lb 2 oz I&O - Last 24 Hours: Intake & Output 01/25/18 01/26/18 01/26/18 22:59 06:59 14:59 Intake Total 760 400 Output Total 1200 600 Balance -440 -200 Lab Results Last 24 Hours: Laboratory Results - last 24 hr 01/25/18 01/25/18 01/26/18 Range/Units 17:24 20:57 05:55 WBC 6.32 (3.98-10.04) K/mm3 RBC 2.95 L (3.98-5.22) M/mm3 Hgb 9.4 L (11.2-15.7) gm/L Hct 29.3 L (34.1-44.9) % MCV 99.3 H (79.4-94.8) fl MCH 31.9 (25.6-32.2) pg MCHC 32.1 L (32.2-35.5) g/dl RDW Std Deviation 53.8 H (36.4-46.3) fL Plt Count 208 (182-369) K/mm3 MPV 9.0 L (9.4-12.3) fl Neut % (Auto) 58.5 (34.0-71.1) % Lymph % (Auto) 24.5 (19.3-51.7) % [place] % (Auto) 10.9 (4.7-12.5) % Eos % (Auto) 5.4 (0.7-5.8) Baso % (Auto) 0.5 (0.1-1.2) % Neut # (Auto) 3.70 (1.56-6.13) K/mm3 Lymph # (Auto) 1.55 (1.18-3.74) K/mm3 [place] # (Auto) 0.69 H (0.24-0.36) K/mm3 Eos # (Auto) 0.34 (0.04-0.36) K/mm3 Baso # (Auto) 0.03 (0.01-0.08) K/mm3 Sodium (136-145) mEq/L Potassium (3.5-5.1) mEq/L Chloride (98-107) mEq/L Carbon Dioxide (21-32) mEq/L Anion Gap (5-15) BUN (7-18) mg/dL Creatinine (0.55-1.02) mg/dL Est Cr Clr Drug Dosing mL/min Estimated GFR (MDRD) (>60) mL/min BUN/Creatinine Ratio (14-18) Glucose (80-115) mg/dL POC Glucose 188 H 237 H (80-115) mg/dL Lactic Acid (0.4-2.0) mmol/L Calcium (8.5-10.1) mg/dL Magnesium (1.8-2.4) mg/dl Total Bilirubin (0.2-1.0) mg/dL AST (15-37) U/L ALT (14-59) U/L Alkaline Phosphatase (46-116) U/L C-Reactive Protein (<1.0) mg/dL NT-Pro-B Natriuret Pep (0-125) pg/mL Total Protein (6.4-8.2) g/dl Albumin (3.4-5.0) g/dl Globulin gm/dL Albumin/Globulin Ratio (1-2) 01/26/18 01/26/18 01/26/18 Range/Units 05:55 05:55 05:55 WBC (3.98-10.04) K/mm3 RBC (3.98-5.22) M/mm3 Hgb (11.2-15.7) gm/L Hct (34.1-44.9) % MCV (79.4-94.8) fl MCH (25.6-32.2) pg MCHC (32.2-35.5) g/dl RDW Std Deviation (36.4-46.3) fL Plt Count (182-369) K/mm3 MPV (9.4-12.3) fl Neut % (Auto) (34.0-71.1) % Lymph % (Auto) (19.3-51.7) % [place] % (Auto) (4.7-12.5) % Eos % (Auto) (0.7-5.8) Baso % (Auto) (0.1-1.2) % Neut # (Auto) (1.56-6.13) K/mm3 Lymph # (Auto) (1.18-3.74) K/mm3 [place] # (Auto) (0.24-0.36) K/mm3 Eos # (Auto) (0.04-0.36) K/mm3 Baso # (Auto) (0.01-0.08) K/mm3 Sodium 134 L (136-145) mEq/L Potassium 4.2 (3.5-5.1) mEq/L Chloride 102 (98-107) mEq/L Carbon Dioxide 26 (21-32) mEq/L Anion Gap 10.2 (5-15) BUN 34 H (7-18) mg/dL Creatinine 1.3 H (0.55-1.02) mg/dL Est Cr Clr Drug Dosing 32.23 mL/min Estimated GFR (MDRD) 42 (>60) mL/min BUN/Creatinine Ratio 26.2 H (14-18) Glucose 158 H (80-115) mg/dL POC Glucose (80-115) mg/dL Lactic Acid 1.8 (0.4-2.0) mmol/L Calcium 8.4 L (8.5-10.1) mg/dL Magnesium 1.8 (1.8-2.4) mg/dl Total Bilirubin 1.6 H (0.2-1.0) mg/dL AST 52 H (15-37) U/L ALT 27 (14-59) U/L Alkaline Phosphatase 101 (46-116) U/L C-Reactive Protein 2.5 H* (<1.0) mg/dL NT-Pro-B Natriuret Pep 647 H (0-125) pg/mL Total Protein 5.9 L (6.4-8.2) g/dl Albumin 2.7 L (3.4-5.0) g/dl Globulin 3.2 gm/dL Albumin/Globulin Ratio 0.8 L (1-2) 01/26/18 Range/Units 06:33 WBC (3.98-10.04) K/mm3 RBC (3.98-5.22) M/mm3 Hgb (11.2-15.7) gm/L Hct (34.1-44.9) % MCV (79.4-94.8) fl MCH (25.6-32.2) pg MCHC (32.2-35.5) g/dl RDW Std Deviation (36.4-46.3) fL Plt Count (182-369) K/mm3 MPV (9.4-12.3) fl Neut % (Auto) (34.0-71.1) % Lymph % (Auto) (19.3-51.7) % [place] % (Auto) (4.7-12.5) % Eos % (Auto) (0.7-5.8) Baso % (Auto) (0.1-1.2) % Neut # (Auto) (1.56-6.13) K/mm3 Lymph # (Auto) (1.18-3.74) K/mm3 [place] # (Auto) (0.24-0.36) K/mm3 Eos # (Auto) (0.04-0.36) K/mm3 Baso # (Auto) (0.01-0.08) K/mm3 Sodium (136-145) mEq/L Potassium (3.5-5.1) mEq/L Chloride (98-107) mEq/L Carbon Dioxide (21-32) mEq/L Anion Gap (5-15) BUN (7-18) mg/dL Creatinine (0.55-1.02) mg/dL Est Cr Clr Drug Dosing mL/min Estimated GFR (MDRD) (>60) mL/min BUN/Creatinine Ratio (14-18) Glucose (80-115) mg/dL POC Glucose 158 H (80-115) mg/dL Lactic Acid (0.4-2.0) mmol/L Calcium (8.5-10.1) mg/dL Magnesium (1.8-2.4) mg/dl Total Bilirubin (0.2-1.0) mg/dL AST (15-37) U/L ALT (14-59) U/L Alkaline Phosphatase (46-116) U/L C-Reactive Protein (<1.0) mg/dL NT-Pro-B Natriuret Pep (0-125) pg/mL Total Protein (6.4-8.2) g/dl Albumin (3.4-5.0) g/dl Globulin gm/dL Albumin/Globulin Ratio (1-2) Med Orders - Current: Current Medications Acetaminophen (Tylenol) 650 mg PO Q6H PRN PRN Reason: Pain/Fever Last Admin: 01/20/18 08:27 Dose: 650 mg Hydrocodone Bitart/Acetaminophen ([place] 325-5 Mg) 1 - 2 tab PO Q4H PRN PRN Reason: Pain Last Admin: 01/24/18 21:26 Dose: 2 tab Albuterol (Proventil Neb Soln) 2.5 mg NEB Q2H PRN PRN Reason: Shortness Of Breath/wheezing Albuterol/Ipratropium (Duoneb 3.0-0.5 Mg/3 Ml) 3 ml NEB Q4H PRN PRN Reason: Shortness Of Breath/wheezing Artificial Tears (Isopto Tears 0.5% Ophth Soln) 0 ml EYEBOTH BID [facility] Last Admin: 01/25/18 20:55 Dose: 1 drop Bisacodyl (Dulcolax) 5 mg PO DAILY PRN PRN Reason: Constipation Last Admin: 01/22/18 09:35 Dose: 5 mg Clonidine HCl (Catapres) 0.3 mg PO BID [facility] Last Admin: 01/25/18 20:50 Dose: 0.3 mg Cyclobenzaprine HCl (Flexeril) 10 mg PO TID PRN PRN Reason: Muscle Spasm Last Admin: 01/23/18 09:43 Dose: 10 mg Dextrose/Water (Dextrose 50% In Water) 50 ml IVPUSH ASDIRECTED PRN PRN Reason: Hypoglycemia Diphenhydramine HCl (Benadryl) 25 mg IVPUSH Q6H PRN PRN Reason: Pruritis Last Admin: 01/20/18 23:35 Dose: 25 mg Docusate Sodium (Colace) 100 mg PO BID PRN PRN Reason: Constipation Docusate Sodium (Colace) 100 mg PO BID [facility] Last Admin: 01/25/18 20:49 Dose: 100 mg Enoxaparin Sodium (Lovenox) 40 mg SUBCUT DAILY [facility] Last Admin: 01/25/18 08:01 Dose: 40 mg Famotidine (Pepcid) 20 mg PO DAILY [facility] Last Admin: 01/25/18 08:01 Dose: 20 mg Furosemide (Lasix) 40 mg PO DAILY [facility] Last Admin: 01/25/18 08:01 Dose: 40 mg Hydralazine HCl (Apresoline) 20 mg IVPUSH Q6H PRN PRN Reason: Hypertension Last Admin: 01/23/18 02:14 Dose: 20 mg Hydromorphone HCl (Dilaudid) 0.5 mg IVPUSH Q4H PRN PRN Reason: Pain Last Admin: 01/22/18 22:28 Dose: 0.5 mg Insulin Aspart (Novolog) 0 unit SUBCUT QIDACANDBED [facility]; Protocol Last Admin: 01/25/18 21:06 Dose: 2 unit Levothyroxine Sodium (Synthroid) 100 mcg PO DAILY@0600 [facility] Last Admin: 01/26/18 06:35 Dose: 100 mcg Losartan Potassium (Cozaar) 100 mg PO BEDTIME [facility] Last Admin: 01/25/18 20:49 Dose: 100 mg Magnesium Hydroxide (Milk Of Magnesia) 30 ml PO Q12H PRN PRN Reason: Constipation Last Admin: 01/22/18 18:14 Dose: 30 ml Memantine (Namenda) 5 mg PO DAILY [facility] Last Admin: 01/25/18 08:02 Dose: 5 mg Metformin HCl (Glucophage) 500 mg PO BIDMEALS [facility] Metoprolol Succinate (Toprol Xl) 25 mg PO DAILY [facility] Last Admin: 01/25/18 08:01 Dose: 25 mg Metoprolol Tartrate (Lopressor) 5 mg IVPUSH Q4H PRN PRN Reason: Hypertension Last Admin: 01/21/18 09:45 Dose: 5 mg Naloxone HCl (Narcan) 0.1 mg IVPUSH Q5M PRN PRN Reason: Oversedation Ondansetron HCl (Zofran) 4 mg IVPUSH Q4H PRN PRN Reason: Nausea/Vomiting Last Admin: 01/20/18 23:35 Dose: 4 mg Imatinib Mesylate [ (Gleevec] 600 Mg) 0 each PO DAILY [facility] Last Admin: 01/25/18 08:03 Dose: 600 each Loxapine 50 Mg 0 each PO BEDTIME [facility] Last Admin: 01/25/18 20:51 Dose: 1 each Loxapine 25 Mg 0 each PO DAILY@1800 [facility] Last Admin: 01/25/18 17:26 Dose: 1 each Polyethylene Glycol (Miralax) 17 gm PO DAILY PRN PRN Reason: Constipation Senna/Docusate Sodium (Senna Plus) 1 tab PO BID PRN PRN Reason: Constipation Simvastatin (Zocor) 10 mg PO BEDTIME [facility] Last Admin: 01/25/18 20:49 Dose: 10 mg Sodium Chloride (Saline Flush) 10 ml FLUSH ONETIME PRN PRN Reason: IV FLUSH Last Admin: 01/21/18 18:06 Dose: 10 ml Spironolactone (Aldactone) 25 mg PO DAILY [facility] Last Admin: 01/25/18 08:01 Dose: 25 mg Temazepam (Restoril) 15 mg PO BEDTIME [facility] Last Admin: 01/25/18 20:50 Dose: 15 mg Tramadol HCl (Ultram) 50 mg PO Q8H [facility] Last Admin: 01/26/18 02:24 Dose: 50 mg Trazodone HCl (Trazodone) 100 mg PO BEDTIME [facility] Last Admin: 01/25/18 20:50 Dose: 100 mg Discontinued Medications Albuterol (Proventil Neb Soln) 2.5 mg NEB ONETIME ONE Stop: 01/20/18 13:58 Last Admin: 01/20/18 19:13 Dose: Not Given Artificial Tears (Isopto Tears 0.5% Ophth Soln) 0 ml EYEBOTH BID [facility] Last Admin: 01/19/18 15:00 Dose: Not Given Artificial Tears (Isopto Tears 0.5% Ophth Soln) 0 ml EYEBOTH BID [facility] Last Admin: 01/19/18 14:20 Dose: 1 drop Bisacodyl (Dulcolax) 10 mg RECTAL ONETIME ONE Stop: 01/23/18 06:12 Last Admin: 01/23/18 06:25 Dose: 10 mg Bupivacaine HCl (Sensorcaine-Mpf 0.75%) Confirm Administered Dose 30 ml .ROUTE .STK-MED ONE Stop: 01/20/18 11:45 Bupivacaine HCl (Marcaine 0.25%) Confirm Administered Dose 30 ml .ROUTE .STK- MED ONE Stop: 01/20/18 12:15 Last Admin: 01/20/18 13:48 Dose: 30 ml Cefazolin Sodium (Ancef) Confirm Administered Dose 2 gm .ROUTE .STK-MED ONE Stop: 01/20/18 11:46 Clonidine HCl (Catapres) 0.3 mg PO BID [facility] Clonidine HCl (Catapres) 0.1 mg PO ONETIME ONE Stop: 01/19/18 19:38 Last Admin: 01/19/18 19:59 Dose: 0.1 mg Clonidine HCl (Catapres) 0.1 mg PO Q8H [facility] Last Admin: 01/22/18 04:14 Dose: 0.1 mg Dextrose (Glutose 15) 15 gm PO ASDIRECTED PRN PRN Reason: LOW BS Famotidine (Pepcid) 20 mg PO BID [facility] Last Admin: 01/19/18 13:10 Dose: 20 mg Famotidine (Pepcid) 20 mg PO Q12H [facility] Last Admin: 01/20/18 17:13 Dose: Not Given Famotidine (Pepcid) 20 mg PO BID@0600,1800 [facility] Last Admin: 01/21/18 05:28 Dose: 20 mg Fentanyl (Sublimaze) Confirm Administered Dose 100 mcg .ROUTE .STK-MED ONE Stop: 01/20/18 11:46 Fentanyl (Sublimaze) 50 mcg IVPUSH Q5M PRN PRN Reason: Pain Furosemide (Lasix) 40 mg PO TID [facility] Last Admin: 01/19/18 14:19 Dose: 40 mg Furosemide (Lasix) 40 mg PO TID [facility] Furosemide (Lasix) 40 mg PO DAILY [facility] Furosemide (Lasix) 40 mg IVPUSH NOW ONE Stop: 01/20/18 05:01 Last Admin: 01/20/18 06:00 Dose: 40 mg Furosemide (Lasix) 40 mg IVPUSH ONETIME ONE Stop: 01/21/18 12:01 Last Admin: 01/21/18 13:27 Dose: 40 mg Hydromorphone HCl (Dilaudid) 1 mg IVPUSH ONETIME ONE Stop: 01/19/18 05:25 Last Admin: 01/19/18 05:48 Dose: 1 mg Hydromorphone HCl (Dilaudid) 0.5 mg IVPUSH ONETIME ONE Stop: 01/19/18 07:33 Last Admin: 01/19/18 07:53 Dose: 0.5 mg Hydromorphone HCl (Dilaudid) 0.5 mg IM ONETIME ONE Stop: 01/21/18 13:18 Last Admin: 01/21/18 13:15 Dose: Not Given Sodium Chloride (Normal Saline) 1,000 mls @ 250 mls/hr IV ASDIRECTED [facility] Last Admin: 01/19/18 05:47 Dose: 250 mls/hr Lactated Ringer's (Ringers, Lactated) 1,000 mls @ 125 mls/hr IV ASDIRECTED [facility] Last Infusion: 01/20/18 12:30 Dose: 0 mls/hr Vancomycin HCl 1 gm/ Sodium (Chloride) 250 mls @ 250 mls/hr IV ONETIME ONE Stop: 01/20/18 14:14 Last Admin: 01/20/18 19:13 Dose: Not Given Sodium Chloride (Normal Saline) Confirm Administered Dose 100 mls @ as directed .ROUTE .STK-MED ONE Stop: 01/20/18 14:00 Lactated Ringer's (Ringers, Lactated) Confirm Administered Dose 1,000 mls @ as directed .ROUTE .K-MED ONE Stop: 01/20/18 14:49 Lactated Ringer's (Ringers, Lactated) Confirm Administered Dose 1,000 mls @ as directed .ROUTE .STK-MED ONE Stop: 01/20/18 14:49 Cefazolin Sodium/Dextrose 2 gm (/ Premix) 50 mls @ 100 mls/hr IV Q8H [facility] Stop: 01/21/18 12:29 Last Admin: 01/21/18 11:04 Dose: 100 mls/hr Sodium Chloride (Normal Saline) 500 mls @ 75 mls/hr IV ONETIME ONE Stop: 01/21/18 17:39 Last Admin: 01/21/18 11:44 Dose: 75 mls/hr Iopamidol (Isovue-300 (61%)) 100 ml IVPUSH ONETIME ONE Stop: 01/19/18 15:46 Last Admin: 01/19/18 15:49 Dose: 100 ml Ketamine HCl (Ketalar) Confirm Administered Dose 500 mg .ROUTE .STK-MED ONE Stop: 01/20/18 11:47 Ketorolac Tromethamine (Toradol) 15 mg IVPUSH Q6H [facility] Stop: 01/20/18 17:01 Last Admin: 01/20/18 18:02 Dose: 15 mg Levothyroxine Sodium (Synthroid) 100 mcg PO DAILY [facility] Last Admin: 01/22/18 09:41 Dose: Not Given Lidocaine HCl (Xylocaine-Mpf 1%) Confirm Administered Dose 5 ml .ROUTE .STK-MED ONE Stop: 01/20/18 12:33 Losartan Potassium (Cozaar) 100 mg PO DAILY [facility] Last Admin: 01/19/18 14:19 Dose: 100 mg Metoprolol Succinate (Toprol Xl) 25 mg PO DAILY [facility] Last Admin: 01/19/18 14:14 Dose: 25 mg Midazolam HCl (Versed 1 Mg/Ml) Confirm Administered Dose 2 mg .ROUTE .STK-MED ONE Stop: 01/20/18 11:46 Midazolam HCl (Versed 1 Mg/Ml) Confirm Administered Dose 2 mg .ROUTE .STK-MED ONE Stop: 01/20/18 13:28 Morphine Sulfate (Duramorph Pf) Confirm Administered Dose 1 mg .ROUTE .STK-MED ONE Stop: 01/20/18 12:28 Naloxone HCl (Narcan) 0.5 mg IVPUSH ONETIME ONE Stop: 01/19/18 17:04 Last Admin: 01/19/18 17:28 Dose: 0.5 mg Non-Formulary Medication (Acetaminophen) 650 mg PO Q8H PRN PRN Reason: Pain Ondansetron HCl (Zofran) 4 mg IVPUSH ONETIME ONE Stop: 01/19/18 05:25 Last Admin: 01/19/18 05:47 Dose: 4 mg Ondansetron HCl (Zofran) 4 mg IVPUSH ONETIME PRN PRN Reason: Nausea/Vomiting Ondansetron HCl (Zofran) Confirm Administered Dose 4 mg .ROUTE .STK-MED ONE Stop: 01/20/18 14:49 Pantoprazole Sodium (Protonix Iv) 40 mg IVPUSH DAILY [facility] Pantoprazole Sodium (Protonix Iv) 40 mg IVPUSH BID [facility] Last Admin: 01/20/18 09:37 Dose: 40 mg Loxapine 25 Mg 0 each PO DAILY@1400 [facility] Last Admin: 01/19/18 15:00 Dose: Not Given Phenylephrine HCl (Rodney-Synephrine) Confirm Administered Dose 10 mg .ROUTE .STK- MED ONE Stop: 01/20/18 14:00 Phenylephrine HCl (Phenylephrine In Ns 100 Mcg/Ml) Confirm Administered Dose 1 mg .ROUTE .STK-MED ONE Stop: 01/20/18 14:01 Propofol (Diprivan 20 Ml) Confirm Administered Dose 600 mg .ROUTE .STK-MED ONE Stop: 01/20/18 11:46 Temazepam (Restoril) 30 mg PO BEDTIME [facility] Temazepam (Restoril) 7.5 mg PO BEDTIME [facility] Last Admin: 01/24/18 21:26 Dose: 7.5 mg Temazepam (Restoril) 7.5 mg PO ONETIME ONE Stop: 01/24/18 22:03 Last Admin: 01/24/18 22:40 Dose: 7.5 mg - Exam Quality Assessment: DVT Prophylaxis General: Alert, Oriented HEENT: Pupils Equal, Pupils Reactive, EOMI, Mucous Membr. Moist/Bivalve Neck: Supple Lungs: Clear to Auscultation, Normal Respiratory Effort, Decreased Breath Sounds. No: Wheezing Cardiovascular: Regular Rate, Regular Rhythm GI/Abdominal Exam: Normal Bowel Sounds, Soft, Non-Tender, No Organomegaly, No Distention, No Abnormal Bruit, No Mass, Pelvis Stable (Female) Exam: Deferred Back Exam: Normal Inspection, Full Range of Motion Extremities: Normal Inspection, Non-Tender, Normal Capillary Refill, Pedal Edema (1+ bilaterally, L>R s/p L femur surgery), Limited Range of Motion Peripheral Pulses: 1+: Posterior Tibial (L), Posterior Tibial (R), Dorsalis Pedis (L), Dorsalis Pedis (R) Skin: Warm, Dry, Intact Wound/Incisions: Healing Well, Dressing Dry and Intact, No Drainage Neurological: No New Focal Deficit Psy/Mental Status: Alert, Normal Affect, Normal Mood - Problem List & Annotations (1) Fracture of proximal end of femur SNOMED Code(s): 905875434 Code(s): S72.009A - FRACTURE OF UNSP PART OF NECK OF UNSP FEMUR, INIT Status: Acute Priority: High Current Visit: Yes Qualifiers: Encounter type: initial encounter Fracture type: closed Laterality: left Qualified Code(s): S72.002A - Fracture of unspecified part of neck of left femur, initial encounter for closed fracture (2) Anemia SNOMED Code(s): 944358893 Code(s): D64.9 - ANEMIA, UNSPECIFIED Status: Chronic Priority: Medium Current Visit: Yes Qualifiers: 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 type: pancytopenia, antineoplastic chemotherapy-induced Qualified Code(s): D61.810 - Antineoplastic chemotherapy induced pancytopenia; T45.1X5A - Adverse effect of antineoplastic and immunosuppressive drugs, initial encounter (3) Congestive heart failure SNOMED Code(s): 16198599 Code(s): I50.9 - HEART FAILURE, UNSPECIFIED Status: Chronic Priority: Medium Current Visit: Yes Qualifiers: Heart failure type: diastolic Heart failure chronicity: chronic Qualified Code(s): I50.32 - Chronic diastolic (congestive) heart failure (4) Hyponatremia SNOMED Code(s): 79065727 Code(s): E87.1 - HYPO-OSMOLALITY AND HYPONATREMIA Status: Chronic Priority: Medium Current Visit: Yes (5) Renal insufficiency SNOMED Code(s): 125606658, 451921489 Code(s): N28.9 - DISORDER OF KIDNEY AND URETER, UNSPECIFIED Status: Chronic Priority: High Current Visit: Yes (6) Traumatic brain injury SNOMED Code(s): 686365558 Code(s): S06.9X9A - UNSP INTRACRANIAL INJURY W LOC OF UNSP DURATION, INIT Status: Chronic Priority: Low Current Visit: Yes Qualifiers: Encounter type: subsequent encounter Loss of consciousness presence/ duration: with LOC of unspecified duration Qualified Code(s): S06.9X9D - Unspecified intracranial injury with loss of consciousness of unspecified duration, subsequent encounter (7) Type 2 diabetes mellitus SNOMED Code(s): 86867259 Code(s): E11.9 - TYPE 2 DIABETES MELLITUS WITHOUT COMPLICATIONS Status: Chronic Priority: Medium Current Visit: Yes Qualifiers: 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 half-way insulin use status Diabetes mellitus complication status: with unspecified complications Qualified Code(s): E11.8 - Type 2 diabetes mellitus with unspecified complications - Problem List Review Problem List Initiated/Reviewed/Updated: Yes - My Orders Last 24 Hours: My Active Orders 01/27/18 05:11 C-REACTIVE PROTEIN [CHEM] AM CBC WITH AUTO DIFF [HEME] AM COMPREHENSIVE METABOLIC PN,CMP [CHEM] AM LACTIC ACID [CHEM] AM MAGNESIUM [CHEM] AM 01/27/18 14:45 PRO B-TYPE NATRIUR PEPT,BNPPRO [CHEM] DAILY 01/28/18 05:11 C-REACTIVE PROTEIN [CHEM] AM CBC WITH AUTO DIFF [HEME] AM COMPREHENSIVE METABOLIC PN,CMP [CHEM] AM LACTIC ACID [CHEM] AM MAGNESIUM [CHEM] AM 01/28/18 14:45 PRO B-TYPE NATRIUR PEPT,BNPPRO [CHEM] DAILY - Plan Plan:: I/P: Acute: Fracture of proximal end of femur, s/p fall ; POD 6: IM paul placement for left femoral shaft fracture -Pain controlled -Stable condition -Pain medication PRN -Bedrest, PT/OT after surgery -Continue supportive care -CRP 2.2-->4.8-->4.9-->3.6-->2.5 Hyponatremia -Na 130--> 132 -->130-->133-->134 -Monitor Hyperemesis--resolved -Risk factor: chemotherapy -Zofran Q4H -IV lactated ringers Chronic: Anemia, Thrombocytopenia- improving -RBC 2.96-->2.74-->2.95, Hgb 9.4-->8.9-->9.4, HCT 28.7-->26.8-->29.3, RDW 51.8-->52.4-->53.8 -Plt 173-->180-->208 -Monitor -Blood Type and Screen ordered -Replenish with PRBCs as needed CKD stage III -eGFR 47-->50-->46-->42 -Creatinine 1.7-->1.1-->1.2-->1.3 -NS IV started in ED--> D/C and start LR IV--> D/C -Defer to PCP for f/u Diabetes Type II -Blood Glucose Checks QID -Continue at home Metformin 500mg -Sliding scale Insulin -A1C ordered -ADA diet after surgery -Defer to PCP for f/u CHF -BNP 236-->1891-->1366-->2548-->2782-->1166-->722-->647 -Continue at home Lasix 40mg TID -Monitor Traumatic Brain Injury Leukemia --> Continue at home Gleevec 600mg here HTN--home meds restarted Plan: Transfered to Med-Surg telemetry unit She remains stable Continue at home meds as above Consult with Dr. Lanza for surgery Other orders as indicated above CM/SW for discharge planning Routine AM labs Continue PT/OT DVT Prophylaxis: SCD Ready to D/C pending SNF placement for rehabilitation--> Gleevec is causing issues with placement Code Status: Full code (CPR, Defib, Intubation)- However "No life sustaining treatment on machines" -per Sister Beti, Power of Mission Manager PCP: Dr. Cespedes LOS > 96hrs due to difficulty with SNF rehabilitation placement
[2018-01-26] MEDS: Insulin Aspart 100 Units/ML 3 ML Pen SUBCUT SCH ×4 (09:34→21:31)
[2018-01-26] MEDS: Metoprolol Succinate 25 MG Tab.ER PO SCH (09:37)
[2018-01-26] MEDS: Docusate Sodium 100 MG Cap PO SCH ×2 (09:38→21:11)
[2018-01-26] MEDS: Acetaminophen/HYDROcodone 325-5 MG Tab PO PRN (09:38)
[2018-01-26] MEDS: Spironolactone 25 MG Tab PO SCH (09:40)
[2018-01-26] MEDS: Memantine 10 MG Tab PO SCH (09:42)
[2018-01-26] MEDS: cloNIDine 0.1 MG Tab PO SCH ×2 (09:43→21:09)
[2018-01-26] MEDS: Furosemide 40 MG Tab PO SCH (09:44)
[2018-01-26] MEDS: Famotidine 20 MG Tab PO SCH (09:44)
[2018-01-26] MEDS: Enoxaparin 40 MG/0.4 ML Syringe SUBCUT SCH (09:46)
[2018-01-26] MEDS: IMATINIB MESYLATE 600 MG PO SCH (09:46)
[2018-01-26] MEDS: Hypromellose 0.5% Ophth Soln 15 ML Bottle EYEBOTH SCH ×2 (09:48→21:09)
--- NOTE | 2018-01-26 14:22 | PCM.SURGPN ---
- General Info Date of Service: 01/26/18 POD#: 7 Functional Status: Reports: Pain Controlled, Tolerating Diet, Ambulating, Urinating, Incentive Spirometry, Other (The pt states she is able to rest comfortably. She is progressing with therapy.) - Patient Data Vitals - Most Recent: Last Vital Signs Temp 98.8 F 01/26/18 11:49 Pulse 85 01/26/18 11:49 Resp 18 01/26/18 11:49 BP 126/41 L 01/26/18 11:49 Pulse Ox 100 01/26/18 11:49 Weight - Most Recent: 193 lb 2 oz I&O - Last 24 Hours: Intake & Output 01/25/18 01/26/18 01/26/18 22:59 06:59 14:59 Intake Total 760 400 0 Output Total 1200 600 Balance -440 -200 0 Lab Results Last 24 Hrs: Laboratory Results - last 24 hr 01/25/18 01/25/18 01/26/18 Range/Units 17:24 20:57 05:55 WBC 6.32 (3.98-10.04) K/mm3 RBC 2.95 L (3.98-5.22) M/mm3 Hgb 9.4 L (11.2-15.7) gm/L Hct 29.3 L (34.1-44.9) % MCV 99.3 H (79.4-94.8) fl MCH 31.9 (25.6-32.2) pg MCHC 32.1 L (32.2-35.5) g/dl RDW Std Deviation 53.8 H (36.4-46.3) fL Plt Count 208 (182-369) K/mm3 MPV 9.0 L (9.4-12.3) fl Neut % (Auto) 58.5 (34.0-71.1) % Lymph % (Auto) 24.5 (19.3-51.7) % [place] % (Auto) 10.9 (4.7-12.5) % Eos % (Auto) 5.4 (0.7-5.8) Baso % (Auto) 0.5 (0.1-1.2) % Neut # (Auto) 3.70 (1.56-6.13) K/mm3 Lymph # (Auto) 1.55 (1.18-3.74) K/mm3 [place] # (Auto) 0.69 H (0.24-0.36) K/mm3 Eos # (Auto) 0.34 (0.04-0.36) K/mm3 Baso # (Auto) 0.03 (0.01-0.08) K/mm3 Sodium (136-145) mEq/L Potassium (3.5-5.1) mEq/L Chloride (98-107) mEq/L Carbon Dioxide (21-32) mEq/L Anion Gap (5-15) BUN (7-18) mg/dL Creatinine (0.55-1.02) mg/dL Est Cr Clr Drug Dosing mL/min Estimated GFR (MDRD) (>60) mL/min BUN/Creatinine Ratio (14-18) Glucose (80-115) mg/dL POC Glucose 188 H 237 H (80-115) mg/dL Lactic Acid (0.4-2.0) mmol/L Calcium (8.5-10.1) mg/dL Magnesium (1.8-2.4) mg/dl Total Bilirubin (0.2-1.0) mg/dL AST (15-37) U/L ALT (14-59) U/L Alkaline Phosphatase (46-116) U/L C-Reactive Protein (<1.0) mg/dL NT-Pro-B Natriuret Pep (0-125) pg/mL Total Protein (6.4-8.2) g/dl Albumin (3.4-5.0) g/dl Globulin gm/dL Albumin/Globulin Ratio (1-2) 01/26/18 01/26/18 01/26/18 Range/Units 05:55 05:55 05:55 WBC (3.98-10.04) K/mm3 RBC (3.98-5.22) M/mm3 Hgb (11.2-15.7) gm/L Hct (34.1-44.9) % MCV (79.4-94.8) fl MCH (25.6-32.2) pg MCHC (32.2-35.5) g/dl RDW Std Deviation (36.4-46.3) fL Plt Count (182-369) K/mm3 MPV (9.4-12.3) fl Neut % (Auto) (34.0-71.1) % Lymph % (Auto) (19.3-51.7) % [place] % (Auto) (4.7-12.5) % Eos % (Auto) (0.7-5.8) Baso % (Auto) (0.1-1.2) % Neut # (Auto) (1.56-6.13) K/mm3 Lymph # (Auto) (1.18-3.74) K/mm3 [place] # (Auto) (0.24-0.36) K/mm3 Eos # (Auto) (0.04-0.36) K/mm3 Baso # (Auto) (0.01-0.08) K/mm3 Sodium 134 L (136-145) mEq/L Potassium 4.2 (3.5-5.1) mEq/L Chloride 102 (98-107) mEq/L Carbon Dioxide 26 (21-32) mEq/L Anion Gap 10.2 (5-15) BUN 34 H (7-18) mg/dL Creatinine 1.3 H (0.55-1.02) mg/dL Est Cr Clr Drug Dosing 32.23 mL/min Estimated GFR (MDRD) 42 (>60) mL/min BUN/Creatinine Ratio 26.2 H (14-18) Glucose 158 H (80-115) mg/dL POC Glucose (80-115) mg/dL Lactic Acid 1.8 (0.4-2.0) mmol/L Calcium 8.4 L (8.5-10.1) mg/dL Magnesium 1.8 (1.8-2.4) mg/dl Total Bilirubin 1.6 H (0.2-1.0) mg/dL AST 52 H (15-37) U/L ALT 27 (14-59) U/L Alkaline Phosphatase 101 (46-116) U/L C-Reactive Protein 2.5 H* (<1.0) mg/dL NT-Pro-B Natriuret Pep 647 H (0-125) pg/mL Total Protein 5.9 L (6.4-8.2) g/dl Albumin 2.7 L (3.4-5.0) g/dl Globulin 3.2 gm/dL Albumin/Globulin Ratio 0.8 L (1-2) 01/26/18 01/26/18 Range/Units 06:33 11:23 WBC (3.98-10.04) K/mm3 RBC (3.98-5.22) M/mm3 Hgb (11.2-15.7) gm/L Hct (34.1-44.9) % MCV (79.4-94.8) fl MCH (25.6-32.2) pg MCHC (32.2-35.5) g/dl RDW Std Deviation (36.4-46.3) fL Plt Count (182-369) K/mm3 MPV (9.4-12.3) fl Neut % (Auto) (34.0-71.1) % Lymph % (Auto) (19.3-51.7) % [place] % (Auto) (4.7-12.5) % Eos % (Auto) (0.7-5.8) Baso % (Auto) (0.1-1.2) % Neut # (Auto) (1.56-6.13) K/mm3 Lymph # (Auto) (1.18-3.74) K/mm3 [place] # (Auto) (0.24-0.36) K/mm3 Eos # (Auto) (0.04-0.36) K/mm3 Baso # (Auto) (0.01-0.08) K/mm3 Sodium (136-145) mEq/L Potassium (3.5-5.1) mEq/L Chloride (98-107) mEq/L Carbon Dioxide (21-32) mEq/L Anion Gap (5-15) BUN (7-18) mg/dL Creatinine (0.55-1.02) mg/dL Est Cr Clr Drug Dosing mL/min Estimated GFR (MDRD) (>60) mL/min BUN/Creatinine Ratio (14-18) Glucose (80-115) mg/dL POC Glucose 158 H 154 H (80-115) mg/dL Lactic Acid (0.4-2.0) mmol/L Calcium (8.5-10.1) mg/dL Magnesium (1.8-2.4) mg/dl Total Bilirubin (0.2-1.0) mg/dL AST (15-37) U/L ALT (14-59) U/L Alkaline Phosphatase (46-116) U/L C-Reactive Protein (<1.0) mg/dL NT-Pro-B Natriuret Pep (0-125) pg/mL Total Protein (6.4-8.2) g/dl Albumin (3.4-5.0) g/dl Globulin gm/dL Albumin/Globulin Ratio (1-2) Med Orders - Current: Current Medications Acetaminophen (Tylenol) 650 mg PO Q6H PRN PRN Reason: Pain/Fever Last Admin: 01/20/18 08:27 Dose: 650 mg Hydrocodone Bitart/Acetaminophen ([place] 325-5 Mg) 1 - 2 tab PO Q4H PRN PRN Reason: Pain Last Admin: 01/26/18 09:38 Dose: 2 tab Albuterol (Proventil Neb Soln) 2.5 mg NEB Q2H PRN PRN Reason: Shortness Of Breath/wheezing Albuterol/Ipratropium (Duoneb 3.0-0.5 Mg/3 Ml) 3 ml NEB Q4H PRN PRN Reason: Shortness Of Breath/wheezing Artificial Tears (Isopto Tears 0.5% Ophth Soln) 0 ml EYEBOTH BID [facility] Last Admin: 01/26/18 09:48 Dose: 1 drop Bisacodyl (Dulcolax) 5 mg PO DAILY PRN PRN Reason: Constipation Last Admin: 01/22/18 09:35 Dose: 5 mg Clonidine HCl (Catapres) 0.3 mg PO BID [facility] Last Admin: 01/26/18 09:43 Dose: 0.3 mg Cyclobenzaprine HCl (Flexeril) 10 mg PO TID PRN PRN Reason: Muscle Spasm Last Admin: 01/23/18 09:43 Dose: 10 mg Dextrose/Water (Dextrose 50% In Water) 50 ml IVPUSH ASDIRECTED PRN PRN Reason: Hypoglycemia Diphenhydramine HCl (Benadryl) 25 mg IVPUSH Q6H PRN PRN Reason: Pruritis Last Admin: 01/20/18 23:35 Dose: 25 mg Docusate Sodium (Colace) 100 mg PO BID PRN PRN Reason: Constipation Docusate Sodium (Colace) 100 mg PO BID [facility] Last Admin: 01/26/18 09:38 Dose: 100 mg Enoxaparin Sodium (Lovenox) 40 mg SUBCUT DAILY [facility] Last Admin: 01/26/18 09:46 Dose: 40 mg Famotidine (Pepcid) 20 mg PO DAILY [facility] Last Admin: 01/26/18 09:44 Dose: 20 mg Furosemide (Lasix) 40 mg PO DAILY [facility] Last Admin: 01/26/18 09:44 Dose: 40 mg Hydralazine HCl (Apresoline) 20 mg IVPUSH Q6H PRN PRN Reason: Hypertension Last Admin: 01/23/18 02:14 Dose: 20 mg Hydromorphone HCl (Dilaudid) 0.5 mg IVPUSH Q4H PRN PRN Reason: Pain Last Admin: 01/22/18 22:28 Dose: 0.5 mg Insulin Aspart (Novolog) 0 unit SUBCUT QIDACANDBED [facility]; Protocol Last Admin: 01/26/18 11:27 Dose: 1 unit Levothyroxine Sodium (Synthroid) 100 mcg PO DAILY@0600 [facility] Last Admin: 01/26/18 06:35 Dose: 100 mcg Losartan Potassium (Cozaar) 100 mg PO BEDTIME [facility] Last Admin: 01/25/18 20:49 Dose: 100 mg Magnesium Hydroxide (Milk Of Magnesia) 30 ml PO Q12H PRN PRN Reason: Constipation Last Admin: 01/22/18 18:14 Dose: 30 ml Memantine (Namenda) 5 mg PO DAILY [facility] Last Admin: 01/26/18 09:42 Dose: 5 mg Metformin HCl (Glucophage) 500 mg PO BIDMEALS [facility] Metoprolol Succinate (Toprol Xl) 25 mg PO DAILY [facility] Last Admin: 01/26/18 09:37 Dose: 25 mg Metoprolol Tartrate (Lopressor) 5 mg IVPUSH Q4H PRN PRN Reason: Hypertension Last Admin: 01/21/18 09:45 Dose: 5 mg Naloxone HCl (Narcan) 0.1 mg IVPUSH Q5M PRN PRN Reason: Oversedation Ondansetron HCl (Zofran) 4 mg IVPUSH Q4H PRN PRN Reason: Nausea/Vomiting Last Admin: 01/20/18 23:35 Dose: 4 mg Imatinib Mesylate [ (Gleevec] 600 Mg) 0 each PO DAILY [facility] Last Admin: 01/26/18 09:46 Dose: 600 each Loxapine 50 Mg 0 each PO BEDTIME [facility] Last Admin: 01/25/18 20:51 Dose: 1 each Loxapine 25 Mg 0 each PO DAILY@1800 [facility] Last Admin: 01/25/18 17:26 Dose: 1 each Polyethylene Glycol (Miralax) 17 gm PO DAILY PRN PRN Reason: Constipation Senna/Docusate Sodium (Senna Plus) 1 tab PO BID PRN PRN Reason: Constipation Simvastatin (Zocor) 10 mg PO BEDTIME [facility] Last Admin: 01/25/18 20:49 Dose: 10 mg Sodium Chloride (Saline Flush) 10 ml FLUSH ONETIME PRN PRN Reason: IV FLUSH Last Admin: 01/21/18 18:06 Dose: 10 ml Spironolactone (Aldactone) 25 mg PO DAILY [facility] Last Admin: 01/26/18 09:40 Dose: 25 mg Temazepam (Restoril) 15 mg PO BEDTIME [facility] Last Admin: 01/25/18 20:50 Dose: 15 mg Tramadol HCl (Ultram) 50 mg PO Q8H [facility] Last Admin: 01/26/18 11:26 Dose: 50 mg Trazodone HCl (Trazodone) 100 mg PO BEDTIME [facility] Last Admin: 01/25/18 20:50 Dose: 100 mg Discontinued Medications Albuterol (Proventil Neb Soln) 2.5 mg NEB ONETIME ONE Stop: 01/20/18 13:58 Last Admin: 01/20/18 19:13 Dose: Not Given Artificial Tears (Isopto Tears 0.5% Ophth Soln) 0 ml EYEBOTH BID [facility] Last Admin: 01/19/18 15:00 Dose: Not Given Artificial Tears (Isopto Tears 0.5% Ophth Soln) 0 ml EYEBOTH BID [facility] Last Admin: 01/19/18 14:20 Dose: 1 drop Bisacodyl (Dulcolax) 10 mg RECTAL ONETIME ONE Stop: 01/23/18 06:12 Last Admin: 01/23/18 06:25 Dose: 10 mg Bupivacaine HCl (Sensorcaine-Mpf 0.75%) Confirm Administered Dose 30 ml .ROUTE .STK-MED ONE Stop: 01/20/18 11:45 Bupivacaine HCl (Marcaine 0.25%) Confirm Administered Dose 30 ml .ROUTE .STK- MED ONE Stop: 01/20/18 12:15 Last Admin: 01/20/18 13:48 Dose: 30 ml Cefazolin Sodium (Ancef) Confirm Administered Dose 2 gm .ROUTE .STK-MED ONE Stop: 01/20/18 11:46 Clonidine HCl (Catapres) 0.3 mg PO BID [facility] Clonidine HCl (Catapres) 0.1 mg PO ONETIME ONE Stop: 01/19/18 19:38 Last Admin: 01/19/18 19:59 Dose: 0.1 mg Clonidine HCl (Catapres) 0.1 mg PO Q8H [facility] Last Admin: 01/22/18 04:14 Dose: 0.1 mg Dextrose (Glutose 15) 15 gm PO ASDIRECTED PRN PRN Reason: LOW BS Famotidine (Pepcid) 20 mg PO BID [facility] Last Admin: 01/19/18 13:10 Dose: 20 mg Famotidine (Pepcid) 20 mg PO Q12H [facility] Last Admin: 01/20/18 17:13 Dose: Not Given Famotidine (Pepcid) 20 mg PO BID@0600,1800 [facility] Last Admin: 01/21/18 05:28 Dose: 20 mg Fentanyl (Sublimaze) Confirm Administered Dose 100 mcg .ROUTE .STK-MED ONE Stop: 01/20/18 11:46 Fentanyl (Sublimaze) 50 mcg IVPUSH Q5M PRN PRN Reason: Pain Furosemide (Lasix) 40 mg PO TID [facility] Last Admin: 01/19/18 14:19 Dose: 40 mg Furosemide (Lasix) 40 mg PO TID [facility] Furosemide (Lasix) 40 mg PO DAILY [facility] Furosemide (Lasix) 40 mg IVPUSH NOW ONE Stop: 01/20/18 05:01 Last Admin: 01/20/18 06:00 Dose: 40 mg Furosemide (Lasix) 40 mg IVPUSH ONETIME ONE Stop: 01/21/18 12:01 Last Admin: 01/21/18 13:27 Dose: 40 mg Hydromorphone HCl (Dilaudid) 1 mg IVPUSH ONETIME ONE Stop: 01/19/18 05:25 Last Admin: 01/19/18 05:48 Dose: 1 mg Hydromorphone HCl (Dilaudid) 0.5 mg IVPUSH ONETIME ONE Stop: 01/19/18 07:33 Last Admin: 01/19/18 07:53 Dose: 0.5 mg Hydromorphone HCl (Dilaudid) 0.5 mg IM ONETIME ONE Stop: 01/21/18 13:18 Last Admin: 01/21/18 13:15 Dose: Not Given Sodium Chloride (Normal Saline) 1,000 mls @ 250 mls/hr IV ASDIRECTED [facility] Last Admin: 01/19/18 05:47 Dose: 250 mls/hr Lactated Ringer's (Ringers, Lactated) 1,000 mls @ 125 mls/hr IV ASDIRECTED [facility] Last Infusion: 01/20/18 12:30 Dose: 0 mls/hr Vancomycin HCl 1 gm/ Sodium (Chloride) 250 mls @ 250 mls/hr IV ONETIME ONE Stop: 01/20/18 14:14 Last Admin: 01/20/18 19:13 Dose: Not Given Sodium Chloride (Normal Saline) Confirm Administered Dose 100 mls @ as directed .ROUTE .STK-MED ONE Stop: 01/20/18 14:00 Lactated Ringer's (Ringers, Lactated) Confirm Administered Dose 1,000 mls @ as directed .ROUTE .STK-MED ONE Stop: 01/20/18 14:49 Lactated Ringer's (Ringers, Lactated) Confirm Administered Dose 1,000 mls @ as directed .ROUTE .K-MED ONE Stop: 01/20/18 14:49 Cefazolin Sodium/Dextrose 2 gm (/ Premix) 50 mls @ 100 mls/hr IV Q8H [facility] Stop: 01/21/18 12:29 Last Admin: 01/21/18 11:04 Dose: 100 mls/hr Sodium Chloride (Normal Saline) 500 mls @ 75 mls/hr IV ONETIME ONE Stop: 01/21/18 17:39 Last Admin: 01/21/18 11:44 Dose: 75 mls/hr Iopamidol (Isovue-300 (61%)) 100 ml IVPUSH ONETIME ONE Stop: 01/19/18 15:46 Last Admin: 01/19/18 15:49 Dose: 100 ml Ketamine HCl (Ketalar) Confirm Administered Dose 500 mg .ROUTE .STK-MED ONE Stop: 01/20/18 11:47 Ketorolac Tromethamine (Toradol) 15 mg IVPUSH Q6H [facility] Stop: 01/20/18 17:01 Last Admin: 01/20/18 18:02 Dose: 15 mg Levothyroxine Sodium (Synthroid) 100 mcg PO DAILY [facility] Last Admin: 01/22/18 09:41 Dose: Not Given Lidocaine HCl (Xylocaine-Mpf 1%) Confirm Administered Dose 5 ml .ROUTE .STK-MED ONE Stop: 01/20/18 12:33 Losartan Potassium (Cozaar) 100 mg PO DAILY [facility] Last Admin: 01/19/18 14:19 Dose: 100 mg Metoprolol Succinate (Toprol Xl) 25 mg PO DAILY [facility] Last Admin: 01/19/18 14:14 Dose: 25 mg Midazolam HCl (Versed 1 Mg/Ml) Confirm Administered Dose 2 mg .ROUTE .STK-MED ONE Stop: 01/20/18 11:46 Midazolam HCl (Versed 1 Mg/Ml) Confirm Administered Dose 2 mg .ROUTE .STK-MED ONE Stop: 01/20/18 13:28 Morphine Sulfate (Duramorph Pf) Confirm Administered Dose 1 mg .ROUTE .STK-MED ONE Stop: 01/20/18 12:28 Naloxone HCl (Narcan) 0.5 mg IVPUSH ONETIME ONE Stop: 01/19/18 17:04 Last Admin: 01/19/18 17:28 Dose: 0.5 mg Non-Formulary Medication (Acetaminophen) 650 mg PO Q8H PRN PRN Reason: Pain Ondansetron HCl (Zofran) 4 mg IVPUSH ONETIME ONE Stop: 01/19/18 05:25 Last Admin: 01/19/18 05:47 Dose: 4 mg Ondansetron HCl (Zofran) 4 mg IVPUSH ONETIME PRN PRN Reason: Nausea/Vomiting Ondansetron HCl (Zofran) Confirm Administered Dose 4 mg .ROUTE .STK-MED ONE Stop: 01/20/18 14:49 Pantoprazole Sodium (Protonix Iv) 40 mg IVPUSH DAILY [facility] Pantoprazole Sodium (Protonix Iv) 40 mg IVPUSH BID [facility] Last Admin: 01/20/18 09:37 Dose: 40 mg Loxapine 25 Mg 0 each PO DAILY@1400 [facility] Last Admin: 01/19/18 15:00 Dose: Not Given Phenylephrine HCl (Rodney-Synephrine) Confirm Administered Dose 10 mg .ROUTE .STK- MED ONE Stop: 01/20/18 14:00 Phenylephrine HCl (Phenylephrine In Ns 100 Mcg/Ml) Confirm Administered Dose 1 mg .ROUTE .STK-MED ONE Stop: 01/20/18 14:01 Propofol (Diprivan 20 Ml) Confirm Administered Dose 600 mg .ROUTE .STK-MED ONE Stop: 01/20/18 11:46 Temazepam (Restoril) 30 mg PO BEDTIME [facility] Temazepam (Restoril) 7.5 mg PO BEDTIME [facility] Last Admin: 01/24/18 21:26 Dose: 7.5 mg Temazepam (Restoril) 7.5 mg PO ONETIME ONE Stop: 01/24/18 22:03 Last Admin: 01/24/18 22:40 Dose: 7.5 mg - Exam Wound/Incisions: Other (No significant change in shadowing at incision sites.) Extremities: Other (NVS intact for LLE. Shashi's negative.) - Problem List Review Problem List Initiated/Reviewed/Updated: Yes - My Orders Last 24 Hours: Active Orders 24 hr Category Date Time Status C-REACTIVE PROTEIN [CHEM] AM Lab 01/27/18 05:11 Ordered C-REACTIVE PROTEIN [CHEM] AM Lab 01/28/18 05:11 Ordered CBC WITH AUTO DIFF [HEME] AM Lab 01/27/18 05:11 Ordered CBC WITH AUTO DIFF [HEME] AM Lab 01/28/18 05:11 Ordered COMPREHENSIVE METABOLIC PN,CMP [CHEM] AM Lab 01/27/18 05:11 Ordered COMPREHENSIVE METABOLIC PN,CMP [CHEM] AM Lab 01/28/18 05:11 Ordered LACTIC ACID [CHEM] AM Lab 01/27/18 05:11 Ordered LACTIC ACID [CHEM] AM Lab 01/28/18 05:11 Ordered MAGNESIUM [CHEM] AM Lab 01/27/18 05:11 Ordered MAGNESIUM [CHEM] AM Lab 01/28/18 05:11 Ordered PRO B-TYPE NATRIUR PEPT,BNPPRO [CHEM] DAILY Lab 01/27/18 14:45 Ordered PRO B-TYPE NATRIUR PEPT,BNPPRO [CHEM] DAILY Lab 01/28/18 14:45 Ordered Medication Orders Acetaminophen (Tylenol) 650 mg PO Q6H PRN PRN Reason: Pain/Fever Last Admin: 01/20/18 08:27 Dose: 650 mg Admin: 01/19/18 19:01 Dose: 650 mg Hydrocodone Bitart/Acetaminophen ([place] 325-5 Mg) 1 - 2 tab PO Q4H PRN PRN Reason: Pain Last Admin: 01/26/18 09:38 Dose: 2 tab Admin: 01/24/18 21:26 Dose: 2 tab Admin: 01/24/18 16:52 Dose: 1 tab Admin: 01/23/18 09:43 Dose: 2 tab Admin: 01/22/18 09:18 Dose: 2 tab Admin: 01/21/18 15:20 Dose: 2 tab Admin: 01/21/18 07:33 Dose: 2 tab Admin: 01/21/18 00:05 Dose: 2 tab Albuterol (Proventil Neb Soln) 2.5 mg NEB Q2H PRN PRN Reason: Shortness Of Breath/wheezing Albuterol/Ipratropium (Duoneb 3.0-0.5 Mg/3 Ml) 3 ml NEB Q4H PRN PRN Reason: Shortness Of Breath/wheezing Artificial Tears (Isopto Tears 0.5% Ophth Soln) 0 ml EYEBOTH BID [facility] Last Admin: 01/26/18 09:48 Dose: 1 drop Admin: 01/25/18 20:55 Dose: 1 drop Admin: 01/25/18 08:00 Dose: 1 drop Admin: 01/24/18 21:25 Dose: 1 drop Admin: 01/24/18 09:27 Dose: 1 drop Admin: 01/23/18 20:07 Dose: 1 drop Admin: 01/23/18 09:19 Dose: 1 drop Admin: 01/22/18 20:37 Dose: 2 drop Admin: 01/22/18 09:34 Dose: 1 drop Admin: 01/21/18 20:36 Dose: 1 drop Admin: 01/21/18 08:11 Dose: 1 drop Admin: 01/20/18 20:47 Dose: 1 drop Admin: 01/20/18 09:37 Dose: 1 drop Admin: 01/19/18 20:00 Dose: 1 drop Bisacodyl (Dulcolax) 5 mg PO DAILY PRN PRN Reason: Constipation Last Admin: 01/22/18 09:35 Dose: 5 mg Clonidine HCl (Catapres) 0.3 mg PO BID [facility] Last Admin: 01/26/18 09:43 Dose: 0.3 mg Admin: 01/25/18 20:50 Dose: 0.3 mg Admin: 01/25/18 08:01 Dose: 0.3 mg Admin: 01/24/18 21:27 Dose: 0.3 mg Admin: 01/24/18 09:32 Dose: 0.3 mg Admin: 01/23/18 20:06 Dose: 0.3 mg Admin: 01/23/18 09:20 Dose: 0.3 mg Admin: 01/22/18 20:35 Dose: 0.3 mg Admin: 01/22/18 09:34 Dose: 0.3 mg Cyclobenzaprine HCl (Flexeril) 10 mg PO TID PRN PRN Reason: Muscle Spasm Last Admin: 01/23/18 09:43 Dose: 10 mg Admin: 01/22/18 09:20 Dose: 10 mg Admin: 01/21/18 16:57 Dose: 10 mg Admin: 01/21/18 05:28 Dose: 10 mg Admin: 01/20/18 02:56 Dose: 10 mg Admin: 01/19/18 19:02 Dose: 10 mg Dextrose/Water (Dextrose 50% In Water) 50 ml IVPUSH ASDIRECTED PRN PRN Reason: Hypoglycemia Diphenhydramine HCl (Benadryl) 25 mg IVPUSH Q6H PRN PRN Reason: Pruritis Last Admin: 01/20/18 23:35 Dose: 25 mg Docusate Sodium (Colace) 100 mg PO BID PRN PRN Reason: Constipation Docusate Sodium (Colace) 100 mg PO BID [facility] Last Admin: 01/26/18 09:38 Dose: 100 mg Admin: 01/25/18 20:49 Dose: 100 mg Admin: 01/25/18 08:02 Dose: 100 mg Admin: 01/24/18 21:29 Dose: 100 mg Admin: 01/24/18 09:27 Dose: 100 mg Admin: 01/23/18 20:07 Dose: 100 mg Admin: 01/23/18 09:23 Dose: 100 mg Admin: 01/22/18 20:36 Dose: 100 mg Admin: 01/22/18 09:34 Dose: 100 mg Admin: 01/21/18 20:34 Dose: 100 mg Admin: 01/21/18 08:10 Dose: 100 mg Admin: 01/20/18 20:46 Dose: 100 mg Enoxaparin Sodium (Lovenox) 40 mg SUBCUT DAILY [facility] Last Admin: 01/26/18 09:46 Dose: 40 mg Admin: 01/25/18 08:01 Dose: 40 mg Admin: 01/24/18 09:29 Dose: 40 mg Admin: 01/23/18 09:24 Dose: 40 mg Admin: 01/22/18 09:36 Dose: 40 mg Admin: 01/21/18 08:11 Dose: 40 mg Famotidine (Pepcid) 20 mg PO DAILY [facility] Last Admin: 01/26/18 09:44 Dose: 20 mg Admin: 01/25/18 08:01 Dose: 20 mg Admin: 01/24/18 09:27 Dose: 20 mg Admin: 01/23/18 09:20 Dose: 20 mg Admin: 01/22/18 09:35 Dose: 20 mg Furosemide (Lasix) 40 mg PO DAILY [facility] Last Admin: 01/26/18 09:44 Dose: 40 mg Admin: 01/25/18 08:01 Dose: 40 mg Admin: 01/24/18 09:28 Dose: 40 mg Admin: 01/23/18 09:23 Dose: 40 mg Admin: 01/22/18 09:35 Dose: 40 mg Admin: 01/21/18 08:10 Dose: 40 mg Hydralazine HCl (Apresoline) 20 mg IVPUSH Q6H PRN PRN Reason: Hypertension Last Admin: 01/23/18 02:14 Dose: 20 mg Admin: 01/20/18 08:57 Dose: 20 mg Admin: 01/19/18 17:28 Dose: 20 mg Hydromorphone HCl (Dilaudid) 0.5 mg IVPUSH Q4H PRN PRN Reason: Pain Last Admin: 01/22/18 22:28 Dose: 0.5 mg Admin: 01/21/18 18:07 Dose: 0.5 mg Admin: 01/21/18 13:22 Dose: 0.5 mg Admin: 01/19/18 21:15 Dose: 0.5 mg Insulin Aspart (Novolog) 0 unit SUBCUT QIDACANDBED [facility]; Protocol Last Admin: 01/26/18 11:27 Dose: 1 unit Admin: 01/26/18 09:34 Dose: 1 unit Admin: 01/25/18 21:06 Dose: 2 unit Admin: 01/25/18 17:25 Dose: 1 unit Admin: 01/25/18 14:51 Dose: Not Given Admin: 01/25/18 06:08 Dose: Not Given Admin: 01/24/18 21:30 Dose: 1 unit Admin: 01/24/18 16:52 Dose: 1 unit Admin: 01/24/18 12:01 Dose: Not Given Admin: 01/24/18 06:22 Dose: 1 unit Admin: 01/23/18 23:22 Dose: 1 unit Admin: 01/23/18 17:15 Dose: Not Given Admin: 01/23/18 11:56 Dose: 1 unit Admin: 01/23/18 06:31 Dose: 1 unit Admin: 01/22/18 22:22 Dose: 1 unit Admin: 01/22/18 16:43 Dose: Not Given Admin: 01/22/18 11:44 Dose: 2 unit Admin: 01/22/18 06:15 Dose: Not Given Admin: 01/21/18 21:20 Dose: 1 unit Admin: 01/21/18 16:56 Dose: 1 unit Admin: 01/21/18 11:14 Dose: 1 unit Admin: 01/21/18 06:07 Dose: Not Given Admin: 01/20/18 22:07 Dose: 1 unit Admin: 01/20/18 17:58 Dose: Not Given Admin: 01/20/18 12:02 Dose: Not Given Admin: 01/20/18 07:33 Dose: Admin: 01/19/18 21:10 Dose: Admin: 01/19/18 17:54 Dose: Not Given Levothyroxine Sodium (Synthroid) 100 mcg PO DAILY@0600 [facility] Last Admin: 01/26/18 06:35 Dose: 100 mcg Admin: 01/25/18 05:41 Dose: 100 mcg Admin: 01/24/18 06:22 Dose: 100 mcg Admin: 01/23/18 05:41 Dose: 100 mcg Admin: 01/22/18 06:04 Dose: 100 mcg Admin: 01/21/18 05:28 Dose: 100 mcg Admin: 01/20/18 06:35 Dose: 100 mcg Admin: 01/19/18 14:19 Dose: 100 mcg Losartan Potassium (Cozaar) 100 mg PO BEDTIME [facility] Last Admin: 01/25/18 20:49 Dose: 100 mg Admin: 01/24/18 21:28 Dose: 100 mg Admin: 01/23/18 20:09 Dose: 100 mg Admin: 01/22/18 20:36 Dose: 100 mg Magnesium Hydroxide (Milk Of Magnesia) 30 ml PO Q12H PRN PRN Reason: Constipation Last Admin: 01/22/18 18:14 Dose: 30 ml Memantine (Namenda) 5 mg PO DAILY [facility] Last Admin: 01/26/18 09:42 Dose: 5 mg Admin: 01/25/18 08:02 Dose: 5 mg Admin: 01/24/18 09:28 Dose: 5 mg Admin: 01/23/18 09:23 Dose: 5 mg Admin: 01/22/18 09:36 Dose: 5 mg Admin: 01/21/18 08:10 Dose: 5 mg Admin: 01/20/18 09:37 Dose: 5 mg Admin: 01/19/18 14:19 Dose: 5 mg Metformin HCl (Glucophage) 500 mg PO BIDMEALS [facility] Metoprolol Succinate (Toprol Xl) 25 mg PO DAILY [facility] Last Admin: 01/26/18 09:37 Dose: 25 mg Admin: 01/25/18 08:01 Dose: 25 mg Admin: 01/24/18 09:31 Dose: 25 mg Admin: 01/23/18 09:23 Dose: 25 mg Admin: 01/22/18 09:35 Dose: 25 mg Metoprolol Tartrate (Lopressor) 5 mg IVPUSH Q4H PRN PRN Reason: Hypertension Last Admin: 01/21/18 09:45 Dose: 5 mg Admin: 01/19/18 18:03 Dose: 5 mg Naloxone HCl (Narcan) 0.1 mg IVPUSH Q5M PRN PRN Reason: Oversedation Ondansetron HCl (Zofran) 4 mg IVPUSH Q4H PRN PRN Reason: Nausea/Vomiting Last Admin: 01/20/18 23:35 Dose: 4 mg Admin: 01/20/18 16:53 Dose: 4 mg Admin: 01/19/18 21:15 Dose: 4 mg Admin: 01/19/18 13:10 Dose: 4 mg Imatinib Mesylate [ (Gleevec] 600 Mg) 0 each PO DAILY [facility] Last Admin: 04/27/18 09:46 Dose: 600 each Admin: 01/25/18 08:03 Dose: 600 each Admin: 01/24/18 09:29 Dose: 600 each Admin: 01/23/18 09:26 Dose: 600 each Admin: 01/22/18 09:38 Dose: 600 each Admin: 01/21/18 08:12 Dose: 600 each Admin: 01/20/18 09:38 Dose: 600 each Loxapine 50 Mg 0 each PO BEDTIME [facility] Last Admin: 01/25/18 20:51 Dose: 1 each Admin: 01/24/18 21:29 Dose: 50 each Admin: 01/23/18 20:10 Dose: 50 each Admin: 01/22/18 20:38 Dose: 50 each Admin: 01/21/18 20:37 Dose: 50 each Admin: 01/20/18 20:46 Dose: 50 each Admin: 01/19/18 20:03 Dose: 50 each Loxapine 25 Mg 0 each PO DAILY@1800 [facility] Last Admin: 01/25/18 17:26 Dose: 1 each Admin: 01/24/18 19:27 Dose: 1 each Admin: 01/24/18 18:45 Dose: Admin: 01/23/18 18:36 Dose: 1 each Admin: 01/22/18 18:13 Dose: 1 each Admin: 01/21/18 18:08 Dose: 1 each Admin: 01/20/18 18:03 Dose: 1 each Admin: 01/19/18 17:40 Dose: 25 each Polyethylene Glycol (Miralax) 17 gm PO DAILY PRN PRN Reason: Constipation Senna/Docusate Sodium (Senna Plus) 1 tab PO BID PRN PRN Reason: Constipation Simvastatin (Zocor) 10 mg PO BEDTIME CELI Last Admin: 01/25/18 20:49 Dose: 10 mg Admin: 01/24/18 21:29 Dose: 10 mg Admin: 01/23/18 20:06 Dose: 10 mg Admin: 01/22/18 20:36 Dose: 10 mg Admin: 01/21/18 20:34 Dose: 10 mg Admin: 01/20/18 20:46 Dose: 10 mg Admin: 01/19/18 20:01 Dose: 10 mg Sodium Chloride (Saline Flush) 10 ml FLUSH ONETIME PRN PRN Reason: IV FLUSH Last Admin: 01/21/18 18:06 Dose: 10 ml Admin: 01/19/18 15:49 Dose: 10 ml Spironolactone (Aldactone) 25 mg PO DAILY [facility] Last Admin: 01/26/18 09:40 Dose: 25 mg Admin: 01/25/18 08:01 Dose: 25 mg Admin: 01/24/18 09:27 Dose: 25 mg Admin: 01/23/18 09:23 Dose: 25 mg Admin: 01/22/18 09:35 Dose: 25 mg Admin: 01/21/18 08:10 Dose: 25 mg Admin: 01/20/18 09:37 Dose: 25 mg Temazepam (Restoril) 15 mg PO BEDTIME [facility] Last Admin: 01/25/18 20:50 Dose: 15 mg Admin: 01/24/18 22:40 Dose: Not Given Tramadol HCl (Ultram) 50 mg PO Q8H [facility] Last Admin: 01/26/18 11:26 Dose: 50 mg Admin: 01/26/18 02:24 Dose: 50 mg Admin: 01/25/18 20:50 Dose: 50 mg Admin: 01/25/18 14:41 Dose: 50 mg Admin: 01/25/18 03:40 Dose: 50 mg Admin: 01/24/18 18:44 Dose: 50 mg Admin: 01/24/18 11:59 Dose: 50 mg Admin: 01/24/18 02:02 Dose: 50 mg Admin: 01/23/18 18:36 Dose: 50 mg Admin: 01/23/18 11:56 Dose: 50 mg Admin: 01/23/18 02:14 Dose: 50 mg Admin: 01/22/18 18:13 Dose: 50 mg Admin: 01/22/18 11:43 Dose: 50 mg Admin: 01/22/18 02:55 Dose: 50 mg Admin: 01/21/18 20:37 Dose: 50 mg Admin: 01/21/18 11:02 Dose: 50 mg Admin: 01/21/18 04:20 Dose: 50 mg Admin: 01/20/18 18:03 Dose: 50 mg Admin: 01/20/18 10:33 Dose: 50 mg Admin: 01/20/18 02:56 Dose: 50 mg Admin: 01/19/18 18:04 Dose: 50 mg Admin: 01/19/18 11:17 Dose: 50 mg Trazodone HCl (Trazodone) 100 mg PO BEDTIME CELI Last Admin: 01/25/18 20:50 Dose: 100 mg Admin: 01/24/18 21:33 Dose: 100 mg Admin: 01/23/18 20:06 Dose: 100 mg Admin: 01/22/18 20:35 Dose: 100 mg Admin: 01/21/18 20:35 Dose: 100 mg Admin: 01/20/18 20:46 Dose: 100 mg Admin: 01/19/18 20:01 Dose: 100 mg - Assessment Assessment (Free Text/Narrative):: POD#6 - IM paul placement for left femur fx - Plan Plan (Free Text/Narrative):: 1. Pt is awaiting [facility] placement. 2. Continue with therapies. 3. Further orders per Hospitalist service. 4. Change Aquacels today. The pt's case was discussed with Dr. Lanza.
[2018-01-26] MEDS: LOXAPINE 25 MG PO SCH (17:32)
[2018-01-26] MEDS: traZODone 50 MG Tab PO SCH (21:10)
[2018-01-26] MEDS: Simvastatin 10 MG Tab PO SCH (21:11)
[2018-01-26] MEDS: Temazepam 15 MG Cap PO SCH (21:11)
[2018-01-26] MEDS: Losartan 100 MG Tab PO SCH (21:12)
[2018-01-27] MEDS: traMADol 50 MG Tab PO SCH ×3 (03:04→18:02)
[2018-01-27] MEDS: Levothyroxine 100 MCG Tab PO SCH (05:58)
[2018-01-27] MEDS: Memantine 10 MG Tab PO SCH (10:06)
[2018-01-27] MEDS: Famotidine 20 MG Tab PO SCH (10:07)
[2018-01-27] MEDS: Docusate Sodium 100 MG Cap PO SCH ×2 (10:08→21:40)
[2018-01-27] MEDS: Furosemide 40 MG Tab PO SCH (10:09)
[2018-01-27] MEDS: Spironolactone 25 MG Tab PO SCH (10:10)
[2018-01-27] MEDS: Insulin Aspart 100 Units/ML 3 ML Pen SUBCUT SCH ×4 (10:10→22:21)
[2018-01-27] MEDS: Enoxaparin 40 MG/0.4 ML Syringe SUBCUT SCH (10:10)
[2018-01-27] MEDS: Hypromellose 0.5% Ophth Soln 15 ML Bottle EYEBOTH SCH ×2 (10:12→21:43)
[2018-01-27] MEDS: Metoprolol Succinate 25 MG Tab.ER PO SCH (10:21)
[2018-01-27] MEDS: cloNIDine 0.1 MG Tab PO SCH ×2 (10:22→21:44)
[2018-01-27] MEDS: IMATINIB MESYLATE 600 MG PO SCH (10:26)
--- NOTE | 2018-01-27 11:21 | PCM.PN ---
- General Info Date of Service: 01/27/18 Admission Dx/Problem (Free Text): Admission Diagnosis/Problem Admission Diagnosis/Problem Fall at home Subjective Update: Follow Up Functional Status: Reports: Pain Controlled, Tolerating Diet, Urinating. Denies : New Symptoms - Review of Systems General: Denies: Fever, Weakness, Fatigue, Malaise, Chills HEENT: Reports: No Symptoms Pulmonary: Denies: Shortness of Breath Cardiovascular: Denies: Chest Pain Gastrointestinal: Denies: Abdominal Pain, Nausea, Vomiting Genitourinary: Reports: No Symptoms Musculoskeletal: Reports: No Symptoms Skin: Denies: Cyanosis, Jaundice, Mottled, Pallor, Diaphoresis, Rash Neurological: Reports: Difficulty Walking, Gait Disturbance. Denies: Confusion , Weakness Psychiatric: Denies: Depression, Anxiety, Agitation, Hallucinations Systems Review Comment:: No significant overnight or acute issues. She is doing just fine. She feels good and reports no complaints this morning. - Patient Data Vitals - Most Recent: Last Vital Signs Temp 36.8 C 01/27/18 04:08 Pulse 99 01/27/18 10:21 Resp 16 01/27/18 04:08 BP 160/46 H 01/27/18 10:22 Pulse Ox 100 01/27/18 04:08 Weight - Most Recent: 87.498 kg I&O - Last 24 Hours: Intake & Output 01/26/18 01/27/18 01/27/18 22:59 06:59 14:59 Intake Total 1020 420 Output Total 1000 850 Balance 20 -430 Lab Results Last 24 Hours: Laboratory Results - last 24 hr 01/26/18 01/26/18 01/26/18 Range/Units 11:23 16:47 21:30 WBC (3.98-10.04) K/mm3 RBC (3.98-5.22) M/mm3 Hgb (11.2-15.7) gm/L Hct (34.1-44.9) % MCV (79.4-94.8) fl MCH (25.6-32.2) pg MCHC (32.2-35.5) g/dl RDW Std Deviation (36.4-46.3) fL Plt Count (182-369) K/mm3 MPV (9.4-12.3) fl Neut % (Auto) (34.0-71.1) % Lymph % (Auto) (19.3-51.7) % Leon % (Auto) (4.7-12.5) % Eos % (Auto) (0.7-5.8) Baso % (Auto) (0.1-1.2) % Neut # (Auto) (1.56-6.13) K/mm3 Lymph # (Auto) (1.18-3.74) K/mm3 Leon # (Auto) (0.24-0.36) K/mm3 Eos # (Auto) (0.04-0.36) K/mm3 Baso # (Auto) (0.01-0.08) K/mm3 Sodium (136-145) mEq/L Potassium (3.5-5.1) mEq/L Chloride (98-107) mEq/L Carbon Dioxide (21-32) mEq/L Anion Gap (5-15) BUN (7-18) mg/dL Creatinine (0.55-1.02) mg/dL Est Cr Clr Drug Dosing mL/min Estimated GFR (MDRD) (>60) mL/min BUN/Creatinine Ratio (14-18) Glucose (80-115) mg/dL POC Glucose 154 H 163 H 238 H (80-115) mg/dL Lactic Acid (0.4-2.0) mmol/L Calcium (8.5-10.1) mg/dL Magnesium (1.8-2.4) mg/dl Total Bilirubin (0.2-1.0) mg/dL AST (15-37) U/L ALT (14-59) U/L Alkaline Phosphatase (46-116) U/L C-Reactive Protein (<1.0) mg/dL NT-Pro-B Natriuret Pep (0-125) pg/mL Total Protein (6.4-8.2) g/dl Albumin (3.4-5.0) g/dl Globulin gm/dL Albumin/Globulin Ratio (1-2) 01/27/18 01/27/18 01/27/18 Range/Units 06:19 06:42 06:42 WBC 6.32 (3.98-10.04) K/mm3 RBC 3.00 L (3.98-5.22) M/mm3 Hgb 9.6 L (11.2-15.7) gm/L Hct 30.1 L (34.1-44.9) % MCV 100.3 H (79.4-94.8) fl MCH 32.0 (25.6-32.2) pg MCHC 31.9 L (32.2-35.5) g/dl RDW Std Deviation 56.3 H (36.4-46.3) fL Plt Count 234 (182-369) K/mm3 MPV 9.1 L (9.4-12.3) fl Neut % (Auto) 59.9 (34.0-71.1) % Lymph % (Auto) 24.8 (19.3-51.7) % Leon % (Auto) 9.2 (4.7-12.5) % Eos % (Auto) 5.1 (0.7-5.8) Baso % (Auto) 0.8 (0.1-1.2) % Neut # (Auto) 3.79 (1.56-6.13) K/mm3 Lymph # (Auto) 1.57 (1.18-3.74) K/mm3 Leon # (Auto) 0.58 H (0.24-0.36) K/mm3 Eos # (Auto) 0.32 (0.04-0.36) K/mm3 Baso # (Auto) 0.05 (0.01-0.08) K/mm3 Sodium 136 (136-145) mEq/L Potassium 4.4 (3.5-5.1) mEq/L Chloride 103 (98-107) mEq/L Carbon Dioxide 27 (21-32) mEq/L Anion Gap 10.4 (5-15) BUN 30 H (7-18) mg/dL Creatinine 1.1 H (0.55-1.02) mg/dL Est Cr Clr Drug Dosing 38.09 mL/min Estimated GFR (MDRD) 50 (>60) mL/min BUN/Creatinine Ratio 27.3 H (14-18) Glucose 161 H (80-115) mg/dL POC Glucose 158 H (80-115) mg/dL Lactic Acid (0.4-2.0) mmol/L Calcium 8.9 (8.5-10.1) mg/dL Magnesium 1.9 (1.8-2.4) mg/dl Total Bilirubin 1.5 H (0.2-1.0) mg/dL AST 51 H (15-37) U/L ALT 27 (14-59) U/L Alkaline Phosphatase 110 (46-116) U/L C-Reactive Protein 2.1 H* (<1.0) mg/dL NT-Pro-B Natriuret Pep (0-125) pg/mL Total Protein 6.1 L (6.4-8.2) g/dl Albumin 2.8 L (3.4-5.0) g/dl Globulin 3.3 gm/dL Albumin/Globulin Ratio 0.9 L (1-2) 01/27/18 01/27/18 Range/Units 06:42 06:42 WBC (3.98-10.04) K/mm3 RBC (3.98-5.22) M/mm3 Hgb (11.2-15.7) gm/L Hct (34.1-44.9) % MCV (79.4-94.8) fl MCH (25.6-32.2) pg MCHC (32.2-35.5) g/dl RDW Std Deviation (36.4-46.3) fL Plt Count (182-369) K/mm3 MPV (9.4-12.3) fl Neut % (Auto) (34.0-71.1) % Lymph % (Auto) (19.3-51.7) % Leon % (Auto) (4.7-12.5) % Eos % (Auto) (0.7-5.8) Baso % (Auto) (0.1-1.2) % Neut # (Auto) (1.56-6.13) K/mm3 Lymph # (Auto) (1.18-3.74) K/mm3 Leon # (Auto) (0.24-0.36) K/mm3 Eos # (Auto) (0.04-0.36) K/mm3 Baso # (Auto) (0.01-0.08) K/mm3 Sodium (136-145) mEq/L Potassium (3.5-5.1) mEq/L Chloride (98-107) mEq/L Carbon Dioxide (21-32) mEq/L Anion Gap (5-15) BUN (7-18) mg/dL Creatinine (0.55-1.02) mg/dL Est Cr Clr Drug Dosing mL/min Estimated GFR (MDRD) (>60) mL/min BUN/Creatinine Ratio (14-18) Glucose (80-115) mg/dL POC Glucose (80-115) mg/dL Lactic Acid 1.8 (0.4-2.0) mmol/L Calcium (8.5-10.1) mg/dL Magnesium (1.8-2.4) mg/dl Total Bilirubin (0.2-1.0) mg/dL AST (15-37) U/L ALT (14-59) U/L Alkaline Phosphatase (46-116) U/L C-Reactive Protein (<1.0) mg/dL NT-Pro-B Natriuret Pep 529 H (0-125) pg/mL Total Protein (6.4-8.2) g/dl Albumin (3.4-5.0) g/dl Globulin gm/dL Albumin/Globulin Ratio (1-2) Med Orders - Current: Current Medications Acetaminophen (Tylenol) 650 mg PO Q6H PRN PRN Reason: Pain/Fever Last Admin: 01/20/18 08:27 Dose: 650 mg Hydrocodone Bitart/Acetaminophen (Lohman 325-5 Mg) 1 - 2 tab PO Q4H PRN PRN Reason: Pain Last Admin: 01/26/18 09:38 Dose: 2 tab Albuterol (Proventil Neb Soln) 2.5 mg NEB Q2H PRN PRN Reason: Shortness Of Breath/wheezing Albuterol/Ipratropium (Duoneb 3.0-0.5 Mg/3 Ml) 3 ml NEB Q4H PRN PRN Reason: Shortness Of Breath/wheezing Artificial Tears (Isopto Tears 0.5% Ophth Soln) 0 ml EYEBOTH BID [facility], [facility] Last Admin: 01/27/18 10:12 Dose: 1 drop Bisacodyl (Dulcolax) 5 mg PO DAILY PRN PRN Reason: Constipation Last Admin: 01/22/18 09:35 Dose: 5 mg Clonidine HCl (Catapres) 0.3 mg PO BID [facility] Last Admin: 01/27/18 10:22 Dose: 0.3 mg Cyclobenzaprine HCl (Flexeril) 10 mg PO TID PRN PRN Reason: Muscle Spasm Last Admin: 01/23/18 09:43 Dose: 10 mg Dextrose/Water (Dextrose 50% In Water) 50 ml IVPUSH ASDIRECTED PRN PRN Reason: Hypoglycemia Diphenhydramine HCl (Benadryl) 25 mg IVPUSH Q6H PRN PRN Reason: Pruritis Last Admin: 01/20/18 23:35 Dose: 25 mg Docusate Sodium (Colace) 100 mg PO BID PRN PRN Reason: Constipation Docusate Sodium (Colace) 100 mg PO BID [facility] Last Admin: 01/27/18 10:08 Dose: 100 mg Enoxaparin Sodium (Lovenox) 40 mg SUBCUT DAILY [facility] Last Admin: 01/27/18 10:10 Dose: 40 mg Famotidine (Pepcid) 20 mg PO DAILY [facility] Last Admin: 01/27/18 10:07 Dose: 20 mg Furosemide (Lasix) 40 mg PO DAILY [facility] Last Admin: 01/27/18 10:09 Dose: 40 mg Hydralazine HCl (Apresoline) 20 mg IVPUSH Q6H PRN PRN Reason: Hypertension Last Admin: 01/23/18 02:14 Dose: 20 mg Hydromorphone HCl (Dilaudid) 0.5 mg IVPUSH Q4H PRN PRN Reason: Pain Last Admin: 01/22/18 22:28 Dose: 0.5 mg Insulin Aspart (Novolog) 0 unit SUBCUT QIDACANDBED [facility], [facility]; Protocol Last Admin: 01/27/18 10:10 Dose: 1 unit Levothyroxine Sodium (Synthroid) 100 mcg PO DAILY@0600 [facility] Last Admin: 01/27/18 05:58 Dose: 100 mcg Losartan Potassium (Cozaar) 100 mg PO BEDTIME [facility] Last Admin: 01/26/18 21:12 Dose: 100 mg Magnesium Hydroxide (Milk Of Magnesia) 30 ml PO Q12H PRN PRN Reason: Constipation Last Admin: 01/22/18 18:14 Dose: 30 ml Memantine (Namenda) 5 mg PO DAILY [facility] Last Admin: 01/27/18 10:06 Dose: 5 mg Metformin HCl (Glucophage) 500 mg PO BIDMEALS [facility] Metoprolol Succinate (Toprol Xl) 25 mg PO DAILY [facility] Last Admin: 01/27/18 10:21 Dose: 25 mg Metoprolol Tartrate (Lopressor) 5 mg IVPUSH Q4H PRN PRN Reason: Hypertension Last Admin: 01/21/18 09:45 Dose: 5 mg Naloxone HCl (Narcan) 0.1 mg IVPUSH Q5M PRN PRN Reason: Oversedation Ondansetron HCl (Zofran) 4 mg IVPUSH Q4H PRN PRN Reason: Nausea/Vomiting Last Admin: 01/20/18 23:35 Dose: 4 mg Imatinib Mesylate [ (Gleevec] 600 Mg) 0 each PO DAILY [facility] Last Admin: 01/27/18 10:26 Dose: 600 each Loxapine 50 Mg 0 each PO BEDTIME CELI Last Admin: 01/26/18 21:12 Dose: 50 each Loxapine 25 Mg 0 each PO DAILY@1800 [facility] Last Admin: 01/26/18 17:32 Dose: 1 each Polyethylene Glycol (Miralax) 17 gm PO DAILY PRN PRN Reason: Constipation Senna/Docusate Sodium (Senna Plus) 1 tab PO BID PRN PRN Reason: Constipation Simvastatin (Zocor) 10 mg PO BEDTIME [facility] Last Admin: 01/26/18 21:11 Dose: 10 mg Sodium Chloride (Saline Flush) 10 ml FLUSH ONETIME PRN PRN Reason: IV FLUSH Last Admin: 01/21/18 18:06 Dose: 10 ml Spironolactone (Aldactone) 25 mg PO DAILY [facility] Last Admin: 01/27/18 10:10 Dose: 25 mg Temazepam (Restoril) 15 mg PO BEDTIME CELI Last Admin: 01/26/18 21:11 Dose: 15 mg Tramadol HCl (Ultram) 50 mg PO Q8H [facility] Last Admin: 01/27/18 10:18 Dose: 50 mg Trazodone HCl (Trazodone) 100 mg PO BEDTIME [facility] Last Admin: 01/26/18 21:10 Dose: 100 mg Discontinued Medications Albuterol (Proventil Neb Soln) 2.5 mg NEB ONETIME ONE Stop: 01/20/18 13:58 Last Admin: 01/20/18 19:13 Dose: Not Given Artificial Tears (Isopto Tears 0.5% Ophth Soln) 0 ml EYEBOTH BID [facility] Last Admin: 01/19/18 15:00 Dose: Not Given Artificial Tears (Isopto Tears 0.5% Ophth Soln) 0 ml EYEBOTH BID [facility] Last Admin: 01/19/18 14:20 Dose: 1 drop Bisacodyl (Dulcolax) 10 mg RECTAL ONETIME ONE Stop: 01/23/18 06:12 Last Admin: 01/23/18 06:25 Dose: 10 mg Bupivacaine HCl (Sensorcaine-Mpf 0.75%) Confirm Administered Dose 30 ml .ROUTE .STK-MED ONE Stop: 01/20/18 11:45 Bupivacaine HCl (Marcaine 0.25%) Confirm Administered Dose 30 ml .ROUTE .STK- MED ONE Stop: 01/20/18 12:15 Last Admin: 01/20/18 13:48 Dose: 30 ml Cefazolin Sodium (Ancef) Confirm Administered Dose 2 gm .ROUTE .STK-MED ONE Stop: 01/20/18 11:46 Clonidine HCl (Catapres) 0.3 mg PO BID [facility] Clonidine HCl (Catapres) 0.1 mg PO ONETIME ONE Stop: 01/19/18 19:38 Last Admin: 01/19/18 19:59 Dose: 0.1 mg Clonidine HCl (Catapres) 0.1 mg PO Q8H [facility] Last Admin: 01/22/18 04:14 Dose: 0.1 mg Dextrose (Glutose 15) 15 gm PO ASDIRECTED PRN PRN Reason: LOW BS Famotidine (Pepcid) 20 mg PO BID [facility] Last Admin: 01/19/18 13:10 Dose: 20 mg Famotidine (Pepcid) 20 mg PO Q12H [facility] Last Admin: 01/20/18 17:13 Dose: Not Given Famotidine (Pepcid) 20 mg PO BID@0600,1800 [facility] Last Admin: 01/21/18 05:28 Dose: 20 mg Fentanyl (Sublimaze) Confirm Administered Dose 100 mcg .ROUTE .STK-MED ONE Stop: 01/20/18 11:46 Fentanyl (Sublimaze) 50 mcg IVPUSH Q5M PRN PRN Reason: Pain Furosemide (Lasix) 40 mg PO TID [facility] Last Admin: 01/19/18 14:19 Dose: 40 mg Furosemide (Lasix) 40 mg PO TID [facility] Furosemide (Lasix) 40 mg PO DAILY [facility] Furosemide (Lasix) 40 mg IVPUSH NOW ONE Stop: 01/20/18 05:01 Last Admin: 01/20/18 06:00 Dose: 40 mg Furosemide (Lasix) 40 mg IVPUSH ONETIME ONE Stop: 01/21/18 12:01 Last Admin: 01/21/18 13:27 Dose: 40 mg Hydromorphone HCl (Dilaudid) 1 mg IVPUSH ONETIME ONE Stop: 01/19/18 05:25 Last Admin: 01/19/18 05:48 Dose: 1 mg Hydromorphone HCl (Dilaudid) 0.5 mg IVPUSH ONETIME ONE Stop: 01/19/18 07:33 Last Admin: 01/19/18 07:53 Dose: 0.5 mg Hydromorphone HCl (Dilaudid) 0.5 mg IM ONETIME ONE Stop: 01/21/18 13:18 Last Admin: 01/21/18 13:15 Dose: Not Given Sodium Chloride (Normal Saline) 1,000 mls @ 250 mls/hr IV ASDIRECTED [facility], [facility] Last Admin: 01/19/18 05:47 Dose: 250 mls/hr Lactated Ringer's (Ringers, Lactated) 1,000 mls @ 125 mls/hr IV ASDIRECTED [facility], [facility]1983 Last Infusion: 01/20/18 12:30 Dose: 0 mls/hr Vancomycin HCl 1 gm/ Sodium (Chloride) 250 mls @ 250 mls/hr IV ONETIME ONE Stop: 01/20/18 14:14 Last Admin: 01/20/18 19:13 Dose: Not Given Sodium Chloride (Normal Saline) Confirm Administered Dose 100 mls @ as directed .ROUTE .STK-MED ONE Stop: 01/20/18 14:00 Lactated Ringer's (Ringers, Lactated) Confirm Administered Dose 1,000 mls @ as directed .ROUTE .STK-MED ONE Stop: 01/20/18 14:49 Lactated Ringer's (Ringers, Lactated) Confirm Administered Dose 1,000 mls @ as directed .ROUTE .[facility]-MED ONE Stop: 01/20/18 14:49 Cefazolin Sodium/Dextrose 2 gm (/ Premix) 50 mls @ 100 mls/hr IV Q8H [facility]1983 Stop: 01/21/18 12:29 Last Admin: 01/21/18 11:04 Dose: 100 mls/hr Sodium Chloride (Normal Saline) 500 mls @ 75 mls/hr IV ONETIME ONE Stop: 01/21/18 17:39 Last Admin: 01/21/18 11:44 Dose: 75 mls/hr Iopamidol (Isovue-300 (61%)) 100 ml IVPUSH ONETIME ONE Stop: 01/19/18 15:46 Last Admin: 01/19/18 15:49 Dose: 100 ml Ketamine HCl (Ketalar) Confirm Administered Dose 500 mg .ROUTE .STK-MED ONE Stop: 01/20/18 11:47 Ketorolac Tromethamine (Toradol) 15 mg IVPUSH Q6H [facility]1983 Stop: 01/20/18 17:01 Last Admin: 01/20/18 18:02 Dose: 15 mg Levothyroxine Sodium (Synthroid) 100 mcg PO DAILY [facility] Last Admin: 01/22/18 09:41 Dose: Not Given Lidocaine HCl (Xylocaine-Mpf 1%) Confirm Administered Dose 5 ml .ROUTE .STK-MED ONE Stop: 01/20/18 12:33 Losartan Potassium (Cozaar) 100 mg PO DAILY [facility] Last Admin: 01/19/18 14:19 Dose: 100 mg Metoprolol Succinate (Toprol Xl) 25 mg PO DAILY [facility] Last Admin: 01/19/18 14:14 Dose: 25 mg Midazolam HCl (Versed 1 Mg/Ml) Confirm Administered Dose 2 mg .ROUTE .STK-MED ONE Stop: 01/20/18 11:46 Midazolam HCl (Versed 1 Mg/Ml) Confirm Administered Dose 2 mg .ROUTE .STK-MED ONE Stop: 01/20/18 13:28 Morphine Sulfate (Duramorph Pf) Confirm Administered Dose 1 mg .ROUTE .STK-MED ONE Stop: 01/20/18 12:28 Naloxone HCl (Narcan) 0.5 mg IVPUSH ONETIME ONE Stop: 01/19/18 17:04 Last Admin: 01/19/18 17:28 Dose: 0.5 mg Non-Formulary Medication (Acetaminophen) 650 mg PO Q8H PRN PRN Reason: Pain Ondansetron HCl (Zofran) 4 mg IVPUSH ONETIME ONE Stop: 01/19/18 05:25 Last Admin: 01/19/18 05:47 Dose: 4 mg Ondansetron HCl (Zofran) 4 mg IVPUSH ONETIME PRN PRN Reason: Nausea/Vomiting Ondansetron HCl (Zofran) Confirm Administered Dose 4 mg .ROUTE .STK-MED ONE Stop: 01/20/18 14:49 Pantoprazole Sodium (Protonix Iv) 40 mg IVPUSH DAILY [facility] Pantoprazole Sodium (Protonix Iv) 40 mg IVPUSH BID [facility], [facility] Last Admin: 01/20/18 09:37 Dose: 40 mg Loxapine 25 Mg 0 each PO DAILY@1400 [facility]1983 Last Admin: 01/19/18 15:00 Dose: Not Given Phenylephrine HCl (Rodney-Synephrine) Confirm Administered Dose 10 mg .ROUTE .STK- MED ONE Stop: 01/20/18 14:00 Phenylephrine HCl (Phenylephrine In Ns 100 Mcg/Ml) Confirm Administered Dose 1 mg .ROUTE .STK-MED ONE Stop: 01/20/18 14:01 Propofol (Diprivan 20 Ml) Confirm Administered Dose 600 mg .ROUTE .STK-MED ONE Stop: 01/20/18 11:46 Temazepam (Restoril) 30 mg PO BEDTIME [facility] Temazepam (Restoril) 7.5 mg PO BEDTIME [facility]1983 Last Admin: 01/24/18 21:26 Dose: 7.5 mg Temazepam (Restoril) 7.5 mg PO ONETIME ONE Stop: 01/24/18 22:03 Last Admin: 01/24/18 22:40 Dose: 7.5 mg - Exam General: Alert, Cooperative, No Acute Distress HEENT: Pupils Equal, Pupils Reactive, EOMI, Mucous Membr. Moist/Mulvane Neck: Supple, Trachea Midline, No JVD Lungs: Normal Respiratory Effort, Decreased Breath Sounds Cardiovascular: Regular Rate, Regular Rhythm GI/Abdominal Exam: Normal Bowel Sounds, Soft, Non-Tender, No Organomegaly, No Distention, No Abnormal Bruit (Female) Exam: Deferred Back Exam: Normal Inspection, Decreased Range of Motion Extremities: Normal Inspection, Normal Range of Motion, Non-Tender, Normal Capillary Refill, Pedal Edema (mild) Peripheral Pulses: 2+: Dorsalis Pedis (L), Dorsalis Pedis (R) Skin: Warm, Dry Wound/Incisions: Healing Well, Dressing Dry and Intact, No Drainage Neurological: No New Focal Deficit Psy/Mental Status: Alert, Normal Affect, Normal Mood - Problem List Review Problem List Initiated/Reviewed/Updated: Yes - Plan Plan:: I/P: Acute: Fracture of proximal end of femur, s/p fall ; POD 7: IM paul placement for left femoral shaft fracture, Stable -Pain controlled -Stable condition -Pain medication PRN -Bedrest, PT/OT after surgery -Continue supportive care -CRP 2.2-->4.8-->4.9-->3.6-->2.5 HTN -Not controlled -Will adjust current BP regimen Resolved: S/p Hyponatremia -Na 130--> 132 -->130-->133-->134--> 136 -Monitor S/p Hyperemesis--resolved -Risk factor: chemotherapy -Zofran Q4H -IV lactated ringers Chronic: Anemia, Thrombocytopenia- improving -RBC 2.96-->2.74-->2.95, Hgb 9.4-->8.9-->9.4, HCT 28.7-->26.8-->29.3, RDW 51.8-->52.4-->53.8 -Plt 173-->180-->208 -Monitor -Blood Type and Screen ordered -Replenish with PRBCs as needed CKD stage III -eGFR 47-->50-->46-->42 -Creatinine 1.7-->1.1-->1.2-->1.3 -NS IV started in ED--> D/C and start LR IV--> D/C -Defer to PCP for f/u Diabetes Type II -Blood Glucose Checks QID -Continue at home Metformin 500mg -Sliding scale Insulin -A1C ordered -ADA diet after surgery -Defer to PCP for f/u CHF -BNP 236-->1891-->1366-->2548-->2782-->1166-->722-->647 -Continue at home Lasix 40mg TID -Monitor Traumatic Brain Injury Leukemia --> Continue at home Gleevec 600mg here Plan: She is clinically stable Routine AM labs Continue PT/OT Ortho following CM/SW for discharge planning DVT Prophylaxis: SCD/Lovenox SubQ Ready to D/C pending SNF placement for rehabilitation--> Gleevec is causing issues with placement Code Status: Full code (CPR, Defib, Intubation)- However "No life sustaining treatment on machines" -per Sister Beti, Power of Screen And [employer]one Rep[employer]r PCP: Dr. Cespedes LOS > 96hrs due to difficulty with SNF rehabilitation placement
[2018-01-27] MEDS: Acetaminophen/HYDROcodone 325-5 MG Tab PO PRN (12:38)
[2018-01-27] MEDS: LOXAPINE 25 MG PO SCH (18:03)
[2018-01-27] MEDS: traZODone 50 MG Tab PO SCH (21:40)
[2018-01-27] MEDS: Temazepam 15 MG Cap PO SCH (21:40)
[2018-01-27] MEDS: Simvastatin 10 MG Tab PO SCH (21:41)
[2018-01-27] MEDS: Losartan 100 MG Tab PO SCH (21:44)
[2018-01-27] MEDS ORDERED: cloNIDine 0.3 MG/Day Transdermal Patch TRDERM ONE (22:00)
[2018-01-28] MEDS: traMADol 50 MG Tab PO SCH ×3 (03:55→18:29)
[2018-01-28] MEDS: Levothyroxine 100 MCG Tab PO SCH (06:16)
--- NOTE | 2018-01-28 08:17 | PCM.PN ---
- General Info Date of Service: 01/28/18 Admission Dx/Problem (Free Text): Admission Diagnosis/Problem Admission Diagnosis/Problem Fall at home Subjective Update: Follow Up Functional Status: Reports: Pain Controlled, Tolerating Diet, Ambulating, Urinating. Denies: New Symptoms - Review of Systems General: Denies: Fever, Weakness, Fatigue, Malaise, Chills HEENT: Reports: No Symptoms Pulmonary: Denies: Shortness of Breath Cardiovascular: Denies: Chest Pain, Palpitations, Dyspnea on Exertion Gastrointestinal: Denies: Abdominal Pain, Nausea, Vomiting Genitourinary: Reports: No Symptoms Musculoskeletal: Reports: No Symptoms Skin: Denies: Cyanosis, Jaundice, Mottled, Pallor, Diaphoresis, Rash Neurological: Reports: Weakness, Gait Disturbance. Denies: Confusion, Difficulty Walking Psychiatric: Denies: Depression, Anxiety, Agitation, Hallucinations Systems Review Comment:: No overnight or acute issues. She is doing relatively fine. She feels good. She states "she takes less pain pills and using more of the incentive spirometry". She has no new complaints this morning. - Patient Data Vitals - Most Recent: Last Vital Signs Temp 36.8 C 01/28/18 03:01 Pulse 77 01/28/18 03:01 Resp 16 01/28/18 03:01 BP 129/39 L 01/28/18 03:01 Pulse Ox 98 01/28/18 03:01 Weight - Most Recent: 87.453 kg I&O - Last 24 Hours: Intake & Output 01/27/18 01/28/18 01/28/18 22:59 06:59 14:59 Intake Total 1200 600 Output Total 1950 1200 Balance -750 -600 Lab Results Last 24 Hours: Laboratory Results - last 24 hr 01/26/18 01/27/18 01/27/18 Range/Units 11:00 11:19 16:53 WBC (3.98-10.04) K/mm3 RBC (3.98-5.22) M/mm3 Hgb (11.2-15.7) gm/L Hct (34.1-44.9) % MCV (79.4-94.8) fl MCH (25.6-32.2) pg MCHC (32.2-35.5) g/dl RDW Std Deviation (36.4-46.3) fL Plt Count (182-369) K/mm3 MPV (9.4-12.3) fl Neut % (Auto) (34.0-71.1) % Lymph % (Auto) (19.3-51.7) % [place] % (Auto) (4.7-12.5) % Eos % (Auto) (0.7-5.8) Baso % (Auto) (0.1-1.2) % Neut # (Auto) (1.56-6.13) K/mm3 Lymph # (Auto) (1.18-3.74) K/mm3 [place] # (Auto) (0.24-0.36) K/mm3 Eos # (Auto) (0.04-0.36) K/mm3 Baso # (Auto) (0.01-0.08) K/mm3 Sodium (136-145) mEq/L Potassium (3.5-5.1) mEq/L Chloride (98-107) mEq/L Carbon Dioxide (21-32) mEq/L Anion Gap (5-15) BUN (7-18) mg/dL Creatinine (0.55-1.02) mg/dL Est Cr Clr Drug Dosing mL/min Estimated GFR (MDRD) (>60) mL/min BUN/Creatinine Ratio (14-18) Glucose (80-115) mg/dL POC Glucose 152 H 130 H (80-115) mg/dL Calcium (8.5-10.1) mg/dL Magnesium (1.8-2.4) mg/dl Total Bilirubin (0.2-1.0) mg/dL AST (15-37) U/L ALT (14-59) U/L Alkaline Phosphatase (46-116) U/L C-Reactive Protein (<1.0) mg/dL Total Protein (6.4-8.2) g/dl Albumin (3.4-5.0) g/dl Globulin gm/dL Albumin/Globulin Ratio (1-2) Urine Color Yellow (Yellow) Urine Appearance Clear (Clear) Urine pH 6.0 (5.0-8.0) Ur Specific Reading 1.015 (1.005-1.030) Urine Protein 1+ H (Negative) Urine Glucose (UA) Negative (Negative) Urine Ketones Negative (Negative) Urine Occult Blood Negative (Negative) Urine Nitrite Negative (Negative) Urine Bilirubin Negative (Negative) Urine Urobilinogen 2.0 H (0.2-1.0) Ur Leukocyte Esterase 1+ H (Negative) Urine RBC 0-5 (0-5) /hpf Urine WBC 20-30 H (0-5) /hpf Ur Epithelial Cells 20-30 H (0-5) /hpf Urine Bacteria Few (FEW) /hpf Urine Mucus Not seen (FEW) /hpf 01/27/18 01/28/18 01/28/18 Range/Units 21:59 06:14 06:14 WBC 6.66 (3.98-10.04) K/mm3 RBC 3.00 L (3.98-5.22) M/mm3 Hgb 9.4 L (11.2-15.7) gm/L Hct 30.2 L (34.1-44.9) % MCV 100.7 H (79.4-94.8) fl MCH 31.3 (25.6-32.2) pg MCHC 31.1 L (32.2-35.5) g/dl RDW Std Deviation 57.7 H (36.4-46.3) fL Plt Count 233 (182-369) K/mm3 MPV 9.2 L (9.4-12.3) fl Neut % (Auto) 61.7 (34.0-71.1) % Lymph % (Auto) 23.0 (19.3-51.7) % [place] % (Auto) 9.3 (4.7-12.5) % Eos % (Auto) 5.0 (0.7-5.8) Baso % (Auto) 0.8 (0.1-1.2) % Neut # (Auto) 4.12 (1.56-6.13) K/mm3 Lymph # (Auto) 1.53 (1.18-3.74) K/mm3 [place] # (Auto) 0.62 H (0.24-0.36) K/mm3 Eos # (Auto) 0.33 (0.04-0.36) K/mm3 Baso # (Auto) 0.05 (0.01-0.08) K/mm3 Sodium 135 L (136-145) mEq/L Potassium 4.5 (3.5-5.1) mEq/L Chloride 103 (98-107) mEq/L Carbon Dioxide 28 (21-32) mEq/L Anion Gap 8.5 (5-15) BUN 26 H (7-18) mg/dL Creatinine 1.0 (0.55-1.02) mg/dL Est Cr Clr Drug Dosing 41.90 mL/min Estimated GFR (MDRD) 56 (>60) mL/min BUN/Creatinine Ratio 26.0 H (14-18) Glucose 164 H (80-115) mg/dL POC Glucose 175 H (80-115) mg/dL Calcium 8.7 (8.5-10.1) mg/dL Magnesium 1.9 (1.8-2.4) mg/dl Total Bilirubin 1.2 H (0.2-1.0) mg/dL AST 43 H (15-37) U/L ALT 29 (14-59) U/L Alkaline Phosphatase 111 (46-116) U/L C-Reactive Protein 1.6 H* (<1.0) mg/dL Total Protein 5.8 L (6.4-8.2) g/dl Albumin 2.7 L (3.4-5.0) g/dl Globulin 3.1 gm/dL Albumin/Globulin Ratio 0.9 L (1-2) Urine Color (Yellow) Urine Appearance (Clear) Urine pH (5.0-8.0) Ur Specific Reading (1.005-1.030) Urine Protein (Negative) Urine Glucose (UA) (Negative) Urine Ketones (Negative) Urine Occult Blood (Negative) Urine Nitrite (Negative) Urine Bilirubin (Negative) Urine Urobilinogen (0.2-1.0) Ur Leukocyte Esterase (Negative) Urine RBC (0-5) /hpf Urine WBC (0-5) /hpf Ur Epithelial Cells (0-5) /hpf Urine Bacteria (FEW) /hpf Urine Mucus (FEW) /hpf 01/28/18 Range/Units 06:15 WBC (3.98-10.04) K/mm3 RBC (3.98-5.22) M/mm3 Hgb (11.2-15.7) gm/L Hct (34.1-44.9) % MCV (79.4-94.8) fl MCH (25.6-32.2) pg MCHC (32.2-35.5) g/dl RDW Std Deviation (36.4-46.3) fL Plt Count (182-369) K/mm3 MPV (9.4-12.3) fl Neut % (Auto) (34.0-71.1) % Lymph % (Auto) (19.3-51.7) % [place] % (Auto) (4.7-12.5) % Eos % (Auto) (0.7-5.8) Baso % (Auto) (0.1-1.2) % Neut # (Auto) (1.56-6.13) K/mm3 Lymph # (Auto) (1.18-3.74) K/mm3 [place] # (Auto) (0.24-0.36) K/mm3 Eos # (Auto) (0.04-0.36) K/mm3 Baso # (Auto) (0.01-0.08) K/mm3 Sodium (136-145) mEq/L Potassium (3.5-5.1) mEq/L Chloride (98-107) mEq/L Carbon Dioxide (21-32) mEq/L Anion Gap (5-15) BUN (7-18) mg/dL Creatinine (0.55-1.02) mg/dL Est Cr Clr Drug Dosing mL/min Estimated GFR (MDRD) (>60) mL/min BUN/Creatinine Ratio (14-18) Glucose (80-115) mg/dL POC Glucose 171 H (80-115) mg/dL Calcium (8.5-10.1) mg/dL Magnesium (1.8-2.4) mg/dl Total Bilirubin (0.2-1.0) mg/dL AST (15-37) U/L ALT (14-59) U/L Alkaline Phosphatase (46-116) U/L C-Reactive Protein (<1.0) mg/dL Total Protein (6.4-8.2) g/dl Albumin (3.4-5.0) g/dl Globulin gm/dL Albumin/Globulin Ratio (1-2) Urine Color (Yellow) Urine Appearance (Clear) Urine pH (5.0-8.0) Ur Specific Reading (1.005-1.030) Urine Protein (Negative) Urine Glucose (UA) (Negative) Urine Ketones (Negative) Urine Occult Blood (Negative) Urine Nitrite (Negative) Urine Bilirubin (Negative) Urine Urobilinogen (0.2-1.0) Ur Leukocyte Esterase (Negative) Urine RBC (0-5) /hpf Urine WBC (0-5) /hpf Ur Epithelial Cells (0-5) /hpf Urine Bacteria (FEW) /hpf Urine Mucus (FEW) /hpf Med Orders - Current: Current Medications Acetaminophen (Tylenol) 650 mg PO Q6H PRN PRN Reason: Pain/Fever Last Admin: 01/20/18 08:27 Dose: 650 mg Hydrocodone Bitart/Acetaminophen (Jakin 325-5 Mg) 1 - 2 tab PO Q4H PRN PRN Reason: Pain Last Admin: 01/27/18 12:38 Dose: 2 tab Albuterol (Proventil Neb Soln) 2.5 mg NEB Q2H PRN PRN Reason: Shortness Of Breath/wheezing Albuterol/Ipratropium (Duoneb 3.0-0.5 Mg/3 Ml) 3 ml NEB Q4H PRN PRN Reason: Shortness Of Breath/wheezing Artificial Tears (Isopto Tears 0.5% Ophth Soln) 0 ml EYEBOTH BID [facility] Last Admin: 01/27/18 21:43 Dose: 1 drop Bisacodyl (Dulcolax) 5 mg PO DAILY PRN PRN Reason: Constipation Last Admin: 01/22/18 09:35 Dose: 5 mg Clonidine HCl (Catapres) 0.3 mg PO BID [facility] Last Admin: 01/27/18 21:44 Dose: 0.3 mg Cyclobenzaprine HCl (Flexeril) 10 mg PO TID PRN PRN Reason: Muscle Spasm Last Admin: 01/23/18 09:43 Dose: 10 mg Dextrose/Water (Dextrose 50% In Water) 50 ml IVPUSH ASDIRECTED PRN PRN Reason: Hypoglycemia Diphenhydramine HCl (Benadryl) 25 mg IVPUSH Q6H PRN PRN Reason: Pruritis Last Admin: 01/20/18 23:35 Dose: 25 mg Docusate Sodium (Colace) 100 mg PO BID PRN PRN Reason: Constipation Docusate Sodium (Colace) 100 mg PO BID [facility] Last Admin: 01/27/18 21:40 Dose: 100 mg Enoxaparin Sodium (Lovenox) 40 mg SUBCUT DAILY [facility] Last Admin: 01/27/18 10:10 Dose: 40 mg Famotidine (Pepcid) 20 mg PO DAILY [facility] Last Admin: 01/27/18 10:07 Dose: 20 mg Furosemide (Lasix) 40 mg PO DAILY [facility] Last Admin: 01/27/18 10:09 Dose: 40 mg Hydralazine HCl (Apresoline) 20 mg IVPUSH Q6H PRN PRN Reason: Hypertension Last Admin: 01/23/18 02:14 Dose: 20 mg Hydromorphone HCl (Dilaudid) 0.5 mg IVPUSH Q4H PRN PRN Reason: Pain Last Admin: 01/22/18 22:28 Dose: 0.5 mg Insulin Aspart (Novolog) 0 unit SUBCUT QIDACANDBED [facility]; Protocol Last Admin: 01/27/18 22:21 Dose: 1 unit Levothyroxine Sodium (Synthroid) 100 mcg PO DAILY@0600 [facility] Last Admin: 01/28/18 06:16 Dose: 100 mcg Losartan Potassium (Cozaar) 100 mg PO BEDTIME [facility] Last Admin: 01/27/18 21:44 Dose: 100 mg Magnesium Hydroxide (Milk Of Magnesia) 30 ml PO Q12H PRN PRN Reason: Constipation Last Admin: 01/22/18 18:14 Dose: 30 ml Memantine (Namenda) 5 mg PO DAILY [facility] Last Admin: 01/27/18 10:06 Dose: 5 mg Metformin HCl (Glucophage) 500 mg PO BIDMEALS [facility] Metoprolol Succinate (Toprol Xl) 25 mg PO DAILY [facility] Last Admin: 01/27/18 10:21 Dose: 25 mg Metoprolol Tartrate (Lopressor) 5 mg IVPUSH Q4H PRN PRN Reason: Hypertension Last Admin: 01/21/18 09:45 Dose: 5 mg Miscellaneous Information (Remove Patch) 1 ea TRDERM Q7D [facility] Naloxone HCl (Narcan) 0.1 mg IVPUSH Q5M PRN PRN Reason: Oversedation Ondansetron HCl (Zofran) 4 mg IVPUSH Q4H PRN PRN Reason: Nausea/Vomiting Last Admin: 01/20/18 23:35 Dose: 4 mg Imatinib Mesylate [ (Gleevec] 600 Mg) 0 each PO DAILY [facility] Last Admin: 01/27/18 10:26 Dose: 600 each Loxapine 50 Mg 0 each PO BEDTIME [facility] Last Admin: 01/27/18 21:44 Dose: 50 each Loxapine 25 Mg 0 each PO DAILY@1800 [facility] Last Admin: 01/27/18 18:03 Dose: 1 each Polyethylene Glycol (Miralax) 17 gm PO DAILY PRN PRN Reason: Constipation Senna/Docusate Sodium (Senna Plus) 1 tab PO BID PRN PRN Reason: Constipation Simvastatin (Zocor) 10 mg PO BEDTIME [facility] Last Admin: 01/27/18 21:41 Dose: 10 mg Sodium Chloride (Saline Flush) 10 ml FLUSH ONETIME PRN PRN Reason: IV FLUSH Last Admin: 01/21/18 18:06 Dose: 10 ml Spironolactone (Aldactone) 25 mg PO DAILY [facility] Last Admin: 01/27/18 10:10 Dose: 25 mg Temazepam (Restoril) 15 mg PO BEDTIME [facility] Last Admin: 01/27/18 21:40 Dose: 15 mg Tramadol HCl (Ultram) 50 mg PO Q8H [facility] Last Admin: 01/28/18 03:55 Dose: 50 mg Trazodone HCl (Trazodone) 100 mg PO BEDTIME [facility] Last Admin: 01/27/18 21:40 Dose: 100 mg Discontinued Medications Albuterol (Proventil Neb Soln) 2.5 mg NEB ONETIME ONE Stop: 01/20/18 13:58 Last Admin: 01/20/18 19:13 Dose: Not Given Artificial Tears (Isopto Tears 0.5% Ophth Soln) 0 ml EYEBOTH BID [facility] Last Admin: 01/19/18 15:00 Dose: Not Given Artificial Tears (Isopto Tears 0.5% Ophth Soln) 0 ml EYEBOTH BID [facility] Last Admin: 01/19/18 14:20 Dose: 1 drop Bisacodyl (Dulcolax) 10 mg RECTAL ONETIME ONE Stop: 01/23/18 06:12 Last Admin: 01/23/18 06:25 Dose: 10 mg Bupivacaine HCl (Sensorcaine-Mpf 0.75%) Confirm Administered Dose 30 ml .ROUTE .STK-MED ONE Stop: 01/20/18 11:45 Bupivacaine HCl (Marcaine 0.25%) Confirm Administered Dose 30 ml .ROUTE .STK- MED ONE Stop: 01/20/18 12:15 Last Admin: 01/20/18 13:48 Dose: 30 ml Cefazolin Sodium (Ancef) Confirm Administered Dose 2 gm .ROUTE .STK-MED ONE Stop: 01/20/18 11:46 Clonidine HCl (Catapres) 0.3 mg PO BID [facility] Clonidine HCl (Catapres) 0.1 mg PO ONETIME ONE Stop: 01/19/18 19:38 Last Admin: 01/19/18 19:59 Dose: 0.1 mg Clonidine HCl (Catapres) 0.1 mg PO Q8H [facility] Last Admin: 01/22/18 04:14 Dose: 0.1 mg Clonidine HCl (Catapres-Tts 3) 0.3 mg TRDERM Q7D ONE Stop: 01/27/18 22:01 Last Admin: 01/27/18 22:21 Dose: 0.3 mg Dextrose (Glutose 15) 15 gm PO ASDIRECTED PRN PRN Reason: LOW BS Famotidine (Pepcid) 20 mg PO BID [facility] Last Admin: 01/19/18 13:10 Dose: 20 mg Famotidine (Pepcid) 20 mg PO Q12H [facility] Last Admin: 01/20/18 17:13 Dose: Not Given Famotidine (Pepcid) 20 mg PO BID@0600,1800 [facility] Last Admin: 01/21/18 05:28 Dose: 20 mg Fentanyl (Sublimaze) Confirm Administered Dose 100 mcg .ROUTE .STK-MED ONE Stop: 01/20/18 11:46 Fentanyl (Sublimaze) 50 mcg IVPUSH Q5M PRN PRN Reason: Pain Furosemide (Lasix) 40 mg PO TID [facility] Last Admin: 01/19/18 14:19 Dose: 40 mg Furosemide (Lasix) 40 mg PO TID [facility] Furosemide (Lasix) 40 mg PO DAILY [facility] Furosemide (Lasix) 40 mg IVPUSH NOW ONE Stop: 01/20/18 05:01 Last Admin: 01/20/18 06:00 Dose: 40 mg Furosemide (Lasix) 40 mg IVPUSH ONETIME ONE Stop: 01/21/18 12:01 Last Admin: 01/21/18 13:27 Dose: 40 mg Hydromorphone HCl (Dilaudid) 1 mg IVPUSH ONETIME ONE Stop: 01/19/18 05:25 Last Admin: 01/19/18 05:48 Dose: 1 mg Hydromorphone HCl (Dilaudid) 0.5 mg IVPUSH ONETIME ONE Stop: 01/19/18 07:33 Last Admin: 01/19/18 07:53 Dose: 0.5 mg Hydromorphone HCl (Dilaudid) 0.5 mg IM ONETIME ONE Stop: 01/21/18 13:18 Last Admin: 01/21/18 13:15 Dose: Not Given Sodium Chloride (Normal Saline) 1,000 mls @ 250 mls/hr IV ASDIRECTED [facility] Last Admin: 01/19/18 05:47 Dose: 250 mls/hr Lactated Ringer's (Ringers, Lactated) 1,000 mls @ 125 mls/hr IV ASDIRECTED [facility] Last Infusion: 01/20/18 12:30 Dose: 0 mls/hr Vancomycin HCl 1 gm/ Sodium (Chloride) 250 mls @ 250 mls/hr IV ONETIME ONE Stop: 01/20/18 14:14 Last Admin: 01/20/18 19:13 Dose: Not Given Sodium Chloride (Normal Saline) Confirm Administered Dose 100 mls @ as directed .ROUTE .STK-MED ONE Stop: 01/20/18 14:00 Lactated Ringer's (Ringers, Lactated) Confirm Administered Dose 1,000 mls @ as directed .ROUTE .STK-MED ONE Stop: 01/20/18 14:49 Lactated Ringer's (Ringers, Lactated) Confirm Administered Dose 1,000 mls @ as directed .ROUTE .STK-MED ONE Stop: 01/20/18 14:49 Cefazolin Sodium/Dextrose 2 gm (/ Premix) 50 mls @ 100 mls/hr IV Q8H [facility] Stop: 01/21/18 12:29 Last Admin: 01/21/18 11:04 Dose: 100 mls/hr Sodium Chloride (Normal Saline) 500 mls @ 75 mls/hr IV ONETIME ONE Stop: 01/21/18 17:39 Last Admin: 01/21/18 11:44 Dose: 75 mls/hr Iopamidol (Isovue-300 (61%)) 100 ml IVPUSH ONETIME ONE Stop: 01/19/18 15:46 Last Admin: 01/19/18 15:49 Dose: 100 ml Ketamine HCl (Ketalar) Confirm Administered Dose 500 mg .ROUTE .STK-MED ONE Stop: 01/20/18 11:47 Ketorolac Tromethamine (Toradol) 15 mg IVPUSH Q6H [facility] Stop: 01/20/18 17:01 Last Admin: 01/20/18 18:02 Dose: 15 mg Levothyroxine Sodium (Synthroid) 100 mcg PO DAILY [facility] Last Admin: 01/22/18 09:41 Dose: Not Given Lidocaine HCl (Xylocaine-Mpf 1%) Confirm Administered Dose 5 ml .ROUTE .STK-MED ONE Stop: 01/20/18 12:33 Losartan Potassium (Cozaar) 100 mg PO DAILY [facility] Last Admin: 01/19/18 14:19 Dose: 100 mg Metoprolol Succinate (Toprol Xl) 25 mg PO DAILY [facility] Last Admin: 01/19/18 14:14 Dose: 25 mg Midazolam HCl (Versed 1 Mg/Ml) Confirm Administered Dose 2 mg .ROUTE .STK-MED ONE Stop: 01/20/18 11:46 Midazolam HCl (Versed 1 Mg/Ml) Confirm Administered Dose 2 mg .ROUTE .STK-MED ONE Stop: 01/20/18 13:28 Morphine Sulfate (Duramorph Pf) Confirm Administered Dose 1 mg .ROUTE .STK-MED ONE Stop: 01/20/18 12:28 Naloxone HCl (Narcan) 0.5 mg IVPUSH ONETIME ONE Stop: 01/19/18 17:04 Last Admin: 01/19/18 17:28 Dose: 0.5 mg Non-Formulary Medication (Acetaminophen) 650 mg PO Q8H PRN PRN Reason: Pain Ondansetron HCl (Zofran) 4 mg IVPUSH ONETIME ONE Stop: 01/19/18 05:25 Last Admin: 01/19/18 05:47 Dose: 4 mg Ondansetron HCl (Zofran) 4 mg IVPUSH ONETIME PRN PRN Reason: Nausea/Vomiting Ondansetron HCl (Zofran) Confirm Administered Dose 4 mg .ROUTE .STK-MED ONE Stop: 01/20/18 14:49 Pantoprazole Sodium (Protonix Iv) 40 mg IVPUSH DAILY [facility] Pantoprazole Sodium (Protonix Iv) 40 mg IVPUSH BID [facility] Last Admin: 01/20/18 09:37 Dose: 40 mg Loxapine 25 Mg 0 each PO DAILY@1400 [facility] Last Admin: 01/19/18 15:00 Dose: Not Given Phenylephrine HCl (Rodney-Synephrine) Confirm Administered Dose 10 mg .ROUTE .STK- MED ONE Stop: 01/20/18 14:00 Phenylephrine HCl (Phenylephrine In Ns 100 Mcg/Ml) Confirm Administered Dose 1 mg .ROUTE .STK-MED ONE Stop: 01/20/18 14:01 Propofol (Diprivan 20 Ml) Confirm Administered Dose 600 mg .ROUTE .STK-MED ONE Stop: 01/20/18 11:46 Temazepam (Restoril) 30 mg PO BEDTIME [facility] Temazepam (Restoril) 7.5 mg PO BEDTIME [facility] Last Admin: 01/24/18 21:26 Dose: 7.5 mg Temazepam (Restoril) 7.5 mg PO ONETIME ONE Stop: 01/24/18 22:03 Last Admin: 01/24/18 22:40 Dose: 7.5 mg - Exam General: No: Alert, Cooperative, No Acute Distress HEENT: Pupils Equal, Pupils Reactive, EOMI, Mucous Membr. Moist/Cos Cob, Other ( Pinpointed pupils) Neck: Supple, Trachea Midline, No JVD Lungs: Clear to Auscultation, Normal Respiratory Effort Cardiovascular: Regular Rate, Regular Rhythm GI/Abdominal Exam: Normal Bowel Sounds, Soft, Non-Tender, No Organomegaly, No Distention, No Abnormal Bruit, No Mass (Female) Exam: Deferred Back Exam: Normal Inspection, Decreased Range of Motion Extremities: Normal Inspection, Normal Range of Motion, Non-Tender, No Pedal Edema, Pedal Edema, Other (bilateral lower extremity edema) Peripheral Pulses: 2+: Dorsalis Pedis (L), Dorsalis Pedis (R) Skin: Warm, Dry, Intact Wound/Incisions: Healing Well, Dressing Dry and Intact, No Drainage, Erythema Improving Neurological: No New Focal Deficit Psy/Mental Status: Alert, Normal Affect, Normal Mood - Problem List Review Problem List Initiated/Reviewed/Updated: Yes - Plan Plan:: I/P: Acute: Fracture of proximal end of femur, s/p fall ; POD 9: IM paul placement for left femoral shaft fracture, Stable -Pain controlled -Stable condition -Pain medication PRN -Bedrest, PT/OT after surgery -Continue supportive care -CRP 2.2-->4.8-->4.9-->3.6-->2.5--> 1.6 HTN -Stable -Continue current BP regimen Resolved: S/p Hyponatremia -Na 130--> 132 -->130-->133-->134--> 136 -Monitor S/p Hyperemesis--resolved -Risk factor: chemotherapy -Zofran Q4H -IV lactated ringers Chronic: Anemia, Thrombocytopenia- improving -RBC 2.96-->2.74-->2.95, Hgb 9.4-->8.9-->9.4, HCT 28.7-->26.8-->29.3, RDW 51.8-->52.4-->53.8 -Plt 173-->180-->208 -Monitor -Blood Type and Screen ordered -Replenish with PRBCs as needed CKD stage III -eGFR 47-->50-->46-->42 -Creatinine 1.7-->1.1-->1.2-->1.3 -NS IV started in ED--> D/C and start LR IV--> D/C -Defer to PCP for f/u Diabetes Type II -Blood Glucose Checks QID -Continue at home Metformin 500mg -Sliding scale Insulin -A1C ordered -ADA diet after surgery -Defer to PCP for f/u CHF -BNP 236-->1891-->1366-->2548-->2782-->1166-->722-->647 -Continue at home Lasix 40mg TID -Monitor Traumatic Brain Injury Leukemia --> Continue at home Gleevec 600mg here Plan: She remains clinically stable Routine AM labs Continue PT/OT Ortho following CM/SW for discharge planning DVT Prophylaxis: SCD/Lovenox SubQ Ready to D/C pending SNF placement for rehabilitation--> Gleevec is causing issues with placement Code Status: Full code (CPR, Defib, Intubation)- However "No life sustaining treatment on machines" -per Sister Beti, Power of [employer] PCP: Dr. Cespedes LOS > 96hrs due to difficulty with SNF rehabilitation placement
[2018-01-28] MEDS: Furosemide 40 MG Tab PO SCH (08:33)
[2018-01-28] MEDS: cloNIDine 0.1 MG Tab PO SCH ×2 (08:33→22:18)
[2018-01-28] MEDS: Docusate Sodium 100 MG Cap PO SCH ×2 (08:33→22:00)
[2018-01-28] MEDS: Memantine 10 MG Tab PO SCH (08:34)
[2018-01-28] MEDS: Famotidine 20 MG Tab PO SCH (08:34)
[2018-01-28] MEDS: Spironolactone 25 MG Tab PO SCH (08:34)
[2018-01-28] MEDS: Metoprolol Succinate 25 MG Tab.ER PO SCH (08:34)
[2018-01-28] MEDS: Insulin Aspart 100 Units/ML 3 ML Pen SUBCUT SCH ×4 (08:35→22:20)
[2018-01-28] MEDS: Enoxaparin 40 MG/0.4 ML Syringe SUBCUT SCH (08:36)
[2018-01-28] MEDS: Hypromellose 0.5% Ophth Soln 15 ML Bottle EYEBOTH SCH ×2 (08:37→22:20)
[2018-01-28] MEDS: IMATINIB MESYLATE 600 MG PO SCH (08:38)
[2018-01-28] MEDS: LOXAPINE 25 MG PO SCH (17:05)
[2018-01-28] MEDS: traZODone 50 MG Tab PO SCH (22:00)
[2018-01-28] MEDS: Simvastatin 10 MG Tab PO SCH (22:00)
[2018-01-28] MEDS: Temazepam 15 MG Cap PO SCH (22:00)
[2018-01-28] MEDS: Losartan 100 MG Tab PO SCH (22:00)
[2018-01-29] MEDS: traMADol 50 MG Tab PO SCH ×3 (03:42→18:18)
[2018-01-29] MEDS: Levothyroxine 100 MCG Tab PO SCH (05:38)
[2018-01-29] MEDS: Spironolactone 25 MG Tab PO SCH (08:55)
[2018-01-29] MEDS: Insulin Aspart 100 Units/ML 3 ML Pen SUBCUT SCH ×4 (08:55→21:11)
[2018-01-29] MEDS: Famotidine 20 MG Tab PO SCH (08:55)
[2018-01-29] MEDS: cloNIDine 0.1 MG Tab PO SCH ×2 (08:55→20:55)
[2018-01-29] MEDS: Furosemide 40 MG Tab PO SCH (08:55)
[2018-01-29] MEDS: Memantine 10 MG Tab PO SCH (08:55)
[2018-01-29] MEDS: IMATINIB MESYLATE 600 MG PO SCH (08:55)
[2018-01-29] MEDS: Docusate Sodium 100 MG Cap PO SCH ×2 (08:55→20:54)
[2018-01-29] MEDS: Metoprolol Succinate 25 MG Tab.ER PO SCH (08:55)
[2018-01-29] MEDS: Enoxaparin 40 MG/0.4 ML Syringe SUBCUT SCH (08:55)
[2018-01-29] MEDS: Hypromellose 0.5% Ophth Soln 15 ML Bottle EYEBOTH SCH ×2 (08:55→20:56)
--- NOTE | 2018-01-29 09:37 | PCM.PN ---
- General Info Date of Service: 01/29/18 Admission Dx/Problem (Free Text): Admission Diagnosis/Problem Admission Diagnosis/Problem Fall at home Subjective Update: In to see Francoise. She is very excited with her progress and states she has been walking longer distances with less difficulty. She has been using her IS. She reports she has not had a BM in a few days and feels like she is starting to become backed up. Will advise nursing to given medication for this. She otherwise has no complaints. No concerns from nursing. Functional Status: Reports: Pain Controlled, Tolerating Diet, Ambulating, Urinating. Denies: New Symptoms - Review of Systems General: Reports: No Symptoms. Denies: Fever, Weakness, Fatigue, Malaise, Chills HEENT: Reports: No Symptoms Pulmonary: Reports: No Symptoms. Denies: Shortness of Breath, Pleuritic Chest Pain, Cough, Sputum Cardiovascular: Reports: No Symptoms. Denies: Chest Pain, Palpitations Gastrointestinal: Reports: Constipation. Denies: Abdominal Pain, Nausea, Vomiting Genitourinary: Reports: No Symptoms Musculoskeletal: Reports: No Symptoms Skin: Reports: No Symptoms Neurological: Reports: Difficulty Walking (improving ), Gait Disturbance ( improving ). Denies: Confusion, Headache, Numbness, Trouble Speaking, Change in Speech Psychiatric: Reports: No Symptoms - Patient Data Vitals - Most Recent: Last Vital Signs Temp 97.5 F 01/29/18 07:24 Pulse 69 01/29/18 07:24 Resp 18 01/29/18 07:24 BP 149/89 H 01/29/18 07:24 Pulse Ox 100 01/29/18 07:24 Weight - Most Recent: 192 lb 9.6 oz I&O - Last 24 Hours: Intake & Output 01/28/18 01/29/18 01/29/18 22:59 06:59 14:59 Intake Total 640 400 Output Total 1500 800 Balance -860 -400 Lab Results Last 24 Hours: Laboratory Results - last 24 hr 01/28/18 01/28/18 01/28/18 Range/Units 10:49 11:53 15:42 POC Glucose 141 H 159 H 166 H (80-115) mg/dL 01/28/18 01/29/18 Range/Units 22:05 05:34 POC Glucose 144 H 152 H (80-115) mg/dL Med Orders - Current: Current Medications Acetaminophen (Tylenol) 650 mg PO Q6H PRN PRN Reason: Pain/Fever Last Admin: 01/20/18 08:27 Dose: 650 mg Hydrocodone Bitart/Acetaminophen ([place] 325-5 Mg) 1 - 2 tab PO Q4H PRN PRN Reason: Pain Last Admin: 01/27/18 12:38 Dose: 2 tab Albuterol (Proventil Neb Soln) 2.5 mg NEB Q2H PRN PRN Reason: Shortness Of Breath/wheezing Albuterol/Ipratropium (Duoneb 3.0-0.5 Mg/3 Ml) 3 ml NEB Q4H PRN PRN Reason: Shortness Of Breath/wheezing Artificial Tears (Isopto Tears 0.5% Ophth Soln) 0 ml EYEBOTH BID [facility] Last Admin: 01/28/18 22:20 Dose: 1 drop Bisacodyl (Dulcolax) 5 mg PO DAILY PRN PRN Reason: Constipation Last Admin: 01/22/18 09:35 Dose: 5 mg Clonidine HCl (Catapres) 0.3 mg PO BID [facility] Last Admin: 01/28/18 22:18 Dose: 0.3 mg Cyclobenzaprine HCl (Flexeril) 10 mg PO TID PRN PRN Reason: Muscle Spasm Last Admin: 01/23/18 09:43 Dose: 10 mg Dextrose/Water (Dextrose 50% In Water) 50 ml IVPUSH ASDIRECTED PRN PRN Reason: Hypoglycemia Diphenhydramine HCl (Benadryl) 25 mg IVPUSH Q6H PRN PRN Reason: Pruritis Last Admin: 01/20/18 23:35 Dose: 25 mg Docusate Sodium (Colace) 100 mg PO BID PRN PRN Reason: Constipation Docusate Sodium (Colace) 100 mg PO BID [facility] Last Admin: 01/28/18 22:00 Dose: 100 mg Enoxaparin Sodium (Lovenox) 40 mg SUBCUT DAILY [facility] Last Admin: 01/28/18 08:36 Dose: 40 mg Famotidine (Pepcid) 20 mg PO DAILY [facility] Last Admin: 01/28/18 08:34 Dose: 20 mg Furosemide (Lasix) 40 mg PO DAILY [facility] Last Admin: 01/28/18 08:33 Dose: 40 mg Hydralazine HCl (Apresoline) 20 mg IVPUSH Q6H PRN PRN Reason: Hypertension Last Admin: 01/23/18 02:14 Dose: 20 mg Hydromorphone HCl (Dilaudid) 0.5 mg IVPUSH Q4H PRN PRN Reason: Pain Last Admin: 01/22/18 22:28 Dose: 0.5 mg Insulin Aspart (Novolog) 0 unit SUBCUT QIDACANDBED [facility]; Protocol Last Admin: 01/28/18 22:20 Dose: 1 unit Levothyroxine Sodium (Synthroid) 100 mcg PO DAILY@0600 [facility] Last Admin: 01/29/18 05:38 Dose: 100 mcg Losartan Potassium (Cozaar) 100 mg PO BEDTIME [facility] Last Admin: 01/28/18 22:00 Dose: 100 mg Magnesium Hydroxide (Milk Of Magnesia) 30 ml PO Q12H PRN PRN Reason: Constipation Last Admin: 01/22/18 18:14 Dose: 30 ml Memantine (Namenda) 5 mg PO DAILY [facility] Last Admin: 01/28/18 08:34 Dose: 5 mg Metformin HCl (Glucophage) 500 mg PO BIDMEALS [facility] Metoprolol Succinate (Toprol Xl) 25 mg PO DAILY [facility] Last Admin: 01/28/18 08:34 Dose: 25 mg Metoprolol Tartrate (Lopressor) 5 mg IVPUSH Q4H PRN PRN Reason: Hypertension Last Admin: 01/21/18 09:45 Dose: 5 mg Miscellaneous Information (Remove Patch) 1 ea TRDERM Q7D [facility] Naloxone HCl (Narcan) 0.1 mg IVPUSH Q5M PRN PRN Reason: Oversedation Ondansetron HCl (Zofran) 4 mg IVPUSH Q4H PRN PRN Reason: Nausea/Vomiting Last Admin: 01/20/18 23:35 Dose: 4 mg Imatinib Mesylate [ (Gleevec] 600 Mg) 0 each PO DAILY [facility] Last Admin: 01/28/18 08:38 Dose: 600 each Loxapine 50 Mg 0 each PO BEDTIME [facility] Last Admin: 01/28/18 22:00 Dose: 50 each Loxapine 25 Mg 0 each PO DAILY@1800 [facility] Last Admin: 01/28/18 17:05 Dose: 1 each Polyethylene Glycol (Miralax) 17 gm PO DAILY PRN PRN Reason: Constipation Senna/Docusate Sodium (Senna Plus) 1 tab PO BID PRN PRN Reason: Constipation Simvastatin (Zocor) 10 mg PO BEDTIME [facility] Last Admin: 01/28/18 22:00 Dose: 10 mg Sodium Chloride (Saline Flush) 10 ml FLUSH ONETIME PRN PRN Reason: IV FLUSH Last Admin: 01/21/18 18:06 Dose: 10 ml Spironolactone (Aldactone) 25 mg PO DAILY [facility] Last Admin: 01/28/18 08:34 Dose: 25 mg Temazepam (Restoril) 15 mg PO BEDTIME [facility] Last Admin: 01/28/18 22:00 Dose: 15 mg Tramadol HCl (Ultram) 50 mg PO Q8H [facility] Last Admin: 01/29/18 03:42 Dose: 50 mg Trazodone HCl (Trazodone) 100 mg PO BEDTIME [facility] Last Admin: 01/28/18 22:00 Dose: 100 mg Discontinued Medications Albuterol (Proventil Neb Soln) 2.5 mg NEB ONETIME ONE Stop: 01/20/18 13:58 Last Admin: 01/20/18 19:13 Dose: Not Given Artificial Tears (Isopto Tears 0.5% Ophth Soln) 0 ml EYEBOTH BID [facility] Last Admin: 01/19/18 15:00 Dose: Not Given Artificial Tears (Isopto Tears 0.5% Ophth Soln) 0 ml EYEBOTH BID [facility] Last Admin: 01/19/18 14:20 Dose: 1 drop Bisacodyl (Dulcolax) 10 mg RECTAL ONETIME ONE Stop: 01/23/18 06:12 Last Admin: 01/23/18 06:25 Dose: 10 mg Bupivacaine HCl (Sensorcaine-Mpf 0.75%) Confirm Administered Dose 30 ml .ROUTE .STK-MED ONE Stop: 01/20/18 11:45 Bupivacaine HCl (Marcaine 0.25%) Confirm Administered Dose 30 ml .ROUTE .STK- MED ONE Stop: 01/20/18 12:15 Last Admin: 01/20/18 13:48 Dose: 30 ml Cefazolin Sodium (Ancef) Confirm Administered Dose 2 gm .ROUTE .STK-MED ONE Stop: 01/20/18 11:46 Clonidine HCl (Catapres) 0.3 mg PO BID [facility] Clonidine HCl (Catapres) 0.1 mg PO ONETIME ONE Stop: 01/19/18 19:38 Last Admin: 01/19/18 19:59 Dose: 0.1 mg Clonidine HCl (Catapres) 0.1 mg PO Q8H [facility] Last Admin: 01/22/18 04:14 Dose: 0.1 mg Clonidine HCl (Catapres-Tts 3) 0.3 mg TRDERM Q7D ONE Stop: 01/27/18 22:01 Last Admin: 01/27/18 22:21 Dose: 0.3 mg Dextrose (Glutose 15) 15 gm PO ASDIRECTED PRN PRN Reason: LOW BS Famotidine (Pepcid) 20 mg PO BID [facility] Last Admin: 01/19/18 13:10 Dose: 20 mg Famotidine (Pepcid) 20 mg PO Q12H [facility] Last Admin: 01/20/18 17:13 Dose: Not Given Famotidine (Pepcid) 20 mg PO BID@0600,1800 [facility] Last Admin: 01/21/18 05:28 Dose: 20 mg Fentanyl (Sublimaze) Confirm Administered Dose 100 mcg .ROUTE .STK-MED ONE Stop: 01/20/18 11:46 Fentanyl (Sublimaze) 50 mcg IVPUSH Q5M PRN PRN Reason: Pain Furosemide (Lasix) 40 mg PO TID [facility] Last Admin: 01/19/18 14:19 Dose: 40 mg Furosemide (Lasix) 40 mg PO TID [facility] Furosemide (Lasix) 40 mg PO DAILY [facility] Furosemide (Lasix) 40 mg IVPUSH NOW ONE Stop: 01/20/18 05:01 Last Admin: 01/20/18 06:00 Dose: 40 mg Furosemide (Lasix) 40 mg IVPUSH ONETIME ONE Stop: 01/21/18 12:01 Last Admin: 01/21/18 13:27 Dose: 40 mg Hydromorphone HCl (Dilaudid) 1 mg IVPUSH ONETIME ONE Stop: 01/19/18 05:25 Last Admin: 01/19/18 05:48 Dose: 1 mg Hydromorphone HCl (Dilaudid) 0.5 mg IVPUSH ONETIME ONE Stop: 01/19/18 07:33 Last Admin: 01/19/18 07:53 Dose: 0.5 mg Hydromorphone HCl (Dilaudid) 0.5 mg IM ONETIME ONE Stop: 01/21/18 13:18 Last Admin: 01/21/18 13:15 Dose: Not Given Sodium Chloride (Normal Saline) 1,000 mls @ 250 mls/hr IV ASDIRECTED [facility] Last Admin: 01/19/18 05:47 Dose: 250 mls/hr Lactated Ringer's (Ringers, Lactated) 1,000 mls @ 125 mls/hr IV ASDIRECTED [facility] Last Infusion: 01/20/18 12:30 Dose: 0 mls/hr Vancomycin HCl 1 gm/ Sodium (Chloride) 250 mls @ 250 mls/hr IV ONETIME ONE Stop: 01/20/18 14:14 Last Admin: 01/20/18 19:13 Dose: Not Given Sodium Chloride (Normal Saline) Confirm Administered Dose 100 mls @ as directed .ROUTE .STK-MED ONE Stop: 01/20/18 14:00 Lactated Ringer's (Ringers, Lactated) Confirm Administered Dose 1,000 mls @ as directed .ROUTE .STK-MED ONE Stop: 01/20/18 14:49 Lactated Ringer's (Ringers, Lactated) Confirm Administered Dose 1,000 mls @ as directed .ROUTE .STK-MED ONE Stop: 01/20/18 14:49 Cefazolin Sodium/Dextrose 2 gm (/ Premix) 50 mls @ 100 mls/hr IV Q8H [facility] Stop: 01/21/18 12:29 Last Admin: 01/21/18 11:04 Dose: 100 mls/hr Sodium Chloride (Normal Saline) 500 mls @ 75 mls/hr IV ONETIME ONE Stop: 01/21/18 17:39 Last Admin: 01/21/18 11:44 Dose: 75 mls/hr Iopamidol (Isovue-300 (61%)) 100 ml IVPUSH ONETIME ONE Stop: 01/19/18 15:46 Last Admin: 01/19/18 15:49 Dose: 100 ml Ketamine HCl (Ketalar) Confirm Administered Dose 500 mg .ROUTE .STK-MED ONE Stop: 01/20/18 11:47 Ketorolac Tromethamine (Toradol) 15 mg IVPUSH Q6H [facility] Stop: 01/20/18 17:01 Last Admin: 01/20/18 18:02 Dose: 15 mg Levothyroxine Sodium (Synthroid) 100 mcg PO DAILY [facility] Last Admin: 01/22/18 09:41 Dose: Not Given Lidocaine HCl (Xylocaine-Mpf 1%) Confirm Administered Dose 5 ml .ROUTE .STK-MED ONE Stop: 01/20/18 12:33 Losartan Potassium (Cozaar) 100 mg PO DAILY [facility] Last Admin: 01/19/18 14:19 Dose: 100 mg Metoprolol Succinate (Toprol Xl) 25 mg PO DAILY [facility] Last Admin: 01/19/18 14:14 Dose: 25 mg Midazolam HCl (Versed 1 Mg/Ml) Confirm Administered Dose 2 mg .ROUTE .STK-MED ONE Stop: 01/20/18 11:46 Midazolam HCl (Versed 1 Mg/Ml) Confirm Administered Dose 2 mg .ROUTE .STK-MED ONE Stop: 01/20/18 13:28 Morphine Sulfate (Duramorph Pf) Confirm Administered Dose 1 mg .ROUTE .STK-MED ONE Stop: 01/20/18 12:28 Naloxone HCl (Narcan) 0.5 mg IVPUSH ONETIME ONE Stop: 01/19/18 17:04 Last Admin: 01/19/18 17:28 Dose: 0.5 mg Non-Formulary Medication (Acetaminophen) 650 mg PO Q8H PRN PRN Reason: Pain Ondansetron HCl (Zofran) 4 mg IVPUSH ONETIME ONE Stop: 01/19/18 05:25 Last Admin: 01/19/18 05:47 Dose: 4 mg Ondansetron HCl (Zofran) 4 mg IVPUSH ONETIME PRN PRN Reason: Nausea/Vomiting Ondansetron HCl (Zofran) Confirm Administered Dose 4 mg .ROUTE .STK-MED ONE Stop: 01/20/18 14:49 Pantoprazole Sodium (Protonix Iv) 40 mg IVPUSH DAILY [facility] Pantoprazole Sodium (Protonix Iv) 40 mg IVPUSH BID [facility] Last Admin: 01/20/18 09:37 Dose: 40 mg Loxapine 25 Mg 0 each PO DAILY@1400 [facility] Last Admin: 01/19/18 15:00 Dose: Not Given Phenylephrine HCl (Rodney-Synephrine) Confirm Administered Dose 10 mg .ROUTE .STK- MED ONE Stop: 01/20/18 14:00 Phenylephrine HCl (Phenylephrine In Ns 100 Mcg/Ml) Confirm Administered Dose 1 mg .ROUTE .STK-MED ONE Stop: 01/20/18 14:01 Propofol (Diprivan 20 Ml) Confirm Administered Dose 600 mg .ROUTE .STK-MED ONE Stop: 01/20/18 11:46 Temazepam (Restoril) 30 mg PO BEDTIME [facility] Temazepam (Restoril) 7.5 mg PO BEDTIME [facility] Last Admin: 01/24/18 21:26 Dose: 7.5 mg Temazepam (Restoril) 7.5 mg PO ONETIME ONE Stop: 01/24/18 22:03 Last Admin: 01/24/18 22:40 Dose: 7.5 mg - Exam Quality Assessment: DVT Prophylaxis General: Alert, Oriented, Cooperative, No Acute Distress HEENT: Pupils Equal, Pupils Reactive, EOMI, Mucous Membr. Moist/[place] Neck: Supple, Trachea Midline, No JVD Lungs: Clear to Auscultation, Normal Respiratory Effort, Decreased Breath Sounds Cardiovascular: Regular Rate, Regular Rhythm GI/Abdominal Exam: Normal Bowel Sounds, Soft, Non-Tender, No Organomegaly, No Distention, No Abnormal Bruit, No Mass, Pelvis Stable (Female) Exam: Deferred Back Exam: Normal Inspection, Full Range of Motion Extremities: Normal Inspection, Normal Range of Motion, Non-Tender, No Pedal Edema, Normal Capillary Refill Peripheral Pulses: 2+: Radial (L), Radial (R), Posterior Tibial (L), Posterior Tibial (R), Dorsalis Pedis (L), Dorsalis Pedis (R) Skin: Warm, Dry, Intact Neurological: No New Focal Deficit Psy/Mental Status: Alert, Normal Affect, Normal Mood - Problem List & Annotations (1) Fracture of proximal end of femur SNOMED Code(s): 724210888 Code(s): S72.009A - FRACTURE OF UNSP PART OF NECK OF UNSP FEMUR, INIT Status: Acute Priority: High Current Visit: Yes Qualifiers: Encounter type: initial encounter Fracture type: closed Laterality: left Qualified Code(s): S72.002A - Fracture of unspecified part of neck of left femur, initial encounter for closed fracture (2) Anemia SNOMED Code(s): 587821394 Code(s): D64.9 - ANEMIA, UNSPECIFIED Status: Chronic Priority: Medium Current Visit: Yes Qualifiers: 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 type: pancytopenia, antineoplastic chemotherapy-induced Qualified Code(s): D61.810 - Antineoplastic chemotherapy induced pancytopenia; T45.1X5A - Adverse effect of antineoplastic and immunosuppressive drugs, initial encounter (3) Congestive heart failure SNOMED Code(s): 36603581 Code(s): I50.9 - HEART FAILURE, UNSPECIFIED Status: Chronic Priority: Medium Current Visit: Yes Qualifiers: Heart failure type: diastolic Heart failure chronicity: chronic Qualified Code(s): I50.32 - Chronic diastolic (congestive) heart failure (4) Hyponatremia SNOMED Code(s): 65841601 Code(s): E87.1 - HYPO-OSMOLALITY AND HYPONATREMIA Status: Chronic Priority: Medium Current Visit: Yes (5) Renal insufficiency SNOMED Code(s): 655865745, 425187025 Code(s): N28.9 - DISORDER OF KIDNEY AND URETER, UNSPECIFIED Status: Chronic Priority: High Current Visit: Yes (6) Traumatic brain injury SNOMED Code(s): 204882596 Code(s): S06.9X9A - UNSP INTRACRANIAL INJURY W LOC OF UNSP DURATION, INIT Status: Chronic Priority: Low Current Visit: Yes Qualifiers: Encounter type: subsequent encounter Loss of consciousness presence/ duration: with LOC of unspecified duration Qualified Code(s): S06.9X9D - Unspecified intracranial injury with loss of consciousness of unspecified duration, subsequent encounter (7) Type 2 diabetes mellitus SNOMED Code(s): 47984252 Code(s): E11.9 - TYPE 2 DIABETES MELLITUS WITHOUT COMPLICATIONS Status: Chronic Priority: Medium Current Visit: Yes Qualifiers: Diabetes mellitus exterminator insulin use: unspecified exterminator insulin use status Diabetes mellitus complication status: with unspecified complications Qualified Code(s): E11.8 - Type 2 diabetes mellitus with unspecified complications (8) Constipation SNOMED Code(s): 11865448 Code(s): K59.00 - CONSTIPATION, UNSPECIFIED Status: Acute Priority: Medium Current Visit: Yes Qualifiers: Constipation type: unspecified constipation type Qualified Code(s): K59.00 - Constipation, unspecified (9) Fall SNOMED Code(s): 9251423, 233903850 Code(s): W19.XXXA - UNSPECIFIED FALL, INITIAL ENCOUNTER Status: Acute Priority: High Current Visit: No Qualifiers: Encounter type: initial encounter Qualified Code(s): W19.XXXA - Unspecified fall, initial encounter (10) Hypertension SNOMED Code(s): 99083813 Code(s): I10 - ESSENTIAL (PRIMARY) HYPERTENSION Status: Acute Priority: High Current Visit: Yes Qualifiers: Hypertension type: essential hypertension Qualified Code(s): I10 - Essential (primary) hypertension - Problem List Review Problem List Initiated/Reviewed/Updated: Yes - My Orders Last 24 Hours: My Active Orders 01/30/18 05:11 BASIC METABOLIC PANEL,BMP [CHEM] AM CBC WITH AUTO DIFF [HEME] AM CRP [C-REACTIVE PROTEIN] [CHEM] AM MAGNESIUM [CHEM] AM 01/31/18 05:11 BASIC METABOLIC PANEL,BMP [CHEM] AM CBC WITH AUTO DIFF [HEME] AM CRP [C-REACTIVE PROTEIN] [CHEM] AM MAGNESIUM [CHEM] AM 02/01/18 05:11 BASIC METABOLIC PANEL,BMP [CHEM] AM CBC WITH AUTO DIFF [HEME] AM CRP [C-REACTIVE PROTEIN] [CHEM] AM MAGNESIUM [CHEM] AM 02/02/18 05:11 BASIC METABOLIC PANEL,BMP [CHEM] AM CBC WITH AUTO DIFF [HEME] AM CRP [C-REACTIVE PROTEIN] [CHEM] AM MAGNESIUM [CHEM] AM - Plan Plan:: I/P: Acute: Fracture of proximal end of femur, s/p fall ; POD 10: IM paul placement for left femoral shaft fracture, Stable -Pain controlled -Stable condition -Pain medication PRN -Bedrest, PT/OT after surgery--> walking now with PT/OT -Continue supportive care -CRP 2.2-->4.8-->4.9-->3.6-->2.5--> 1.6 HTN -Stable -Continue current BP regimen -PRN BP meds as needed Resolved: S/p Hyponatremia -Na 130--> 132 -->130-->133-->134--> 136 -Monitor S/p Hyperemesis--resolved -Risk factor: chemotherapy -Zofran Q4H -IV lactated ringers Chronic: Anemia, Thrombocytopenia- improving -RBC 2.96-->2.74-->2.95, Hgb 9.4-->8.9-->9.4, HCT 28.7-->26.8-->29.3, RDW 51.8-->52.4-->53.8 -Plt 173-->180-->208 -Monitor -Blood Type and Screen ordered -Replenish with PRBCs as needed CKD stage III -eGFR 47-->50-->46-->42 -Creatinine 1.7-->1.1-->1.2-->1.3 -NS IV started in ED--> D/C and start LR IV--> D/C -Defer to PCP for f/u Diabetes Type II -Blood Glucose Checks QID -Continue at home Metformin 500mg -Sliding scale Insulin -A1C 5.0 -ADA diet after surgery -Defer to PCP for f/u CHF -BNP 236-->1891-->1366-->2548-->2782-->1166-->722-->647 -Continue at home Lasix 40mg TID -Monitor Traumatic Brain Injury Leukemia --> Continue at home Gleevec 600mg here Plan: She remains clinically stable and has been ambulating well with PT/OT Routine AM labs Continue PT/OT Ortho following CM/SW for discharge planning DVT Prophylaxis: SCD/Lovenox SubQ Ready to D/C pending SNF placement for rehabilitation--> Gleevec is causing issues with placement Code Status: Full code (CPR, Defib, Intubation)- However "No life sustaining treatment on machines" -per Sister Beti, Power of Management Analyst PCP: Dr. Cespedes LOS > 96hrs due to difficulty with SNF rehabilitation placement
[2018-01-29] MEDS: LOXAPINE 25 MG PO SCH (18:17)
[2018-01-29] MEDS: Temazepam 15 MG Cap PO SCH (20:54)
[2018-01-29] MEDS: traZODone 50 MG Tab PO SCH (20:55)
[2018-01-29] MEDS: Losartan 100 MG Tab PO SCH (20:55)
[2018-01-29] MEDS: Simvastatin 10 MG Tab PO SCH (20:56)
[2018-01-30] MEDS: Acetaminophen/HYDROcodone 325-5 MG Tab PO PRN ×3 (00:51→21:59)
[2018-01-30] MEDS: traMADol 50 MG Tab PO SCH ×3 (05:05→18:43)
[2018-01-30] MEDS: Levothyroxine 100 MCG Tab PO SCH (05:06)
[2018-01-30] MEDS: Insulin Aspart 100 Units/ML 3 ML Pen SUBCUT SCH ×4 (06:32→22:03)
--- NOTE | 2018-01-30 08:20 | PCM.SURGPN ---
- General Info Date of Service: 01/30/18 POD#: 10 Functional Status: Reports: Pain Controlled, Tolerating Diet, Ambulating, Urinating - Review of Systems Musculoskeletal: Reports: Other (The pt states she was able to increase ambulation distance and improvements have been noted with bed mobility also.) - Patient Data Vitals - Most Recent: Last Vital Signs Temp 98.1 F 01/30/18 05:10 Pulse 64 01/30/18 05:10 Resp 18 01/30/18 05:10 BP 137/78 01/30/18 05:10 Pulse Ox 99 01/30/18 05:10 Weight - Most Recent: 193 lb I&O - Last 24 Hours: Intake & Output 01/29/18 01/30/18 01/30/18 22:59 06:59 14:59 Intake Total 940 400 Output Total 1200 Balance -260 400 Lab Results Last 24 Hrs: Laboratory Results - last 24 hr 01/29/18 01/29/18 01/30/18 Range/Units 17:18 21:02 06:23 WBC (3.98-10.04) K/mm3 RBC (3.98-5.22) M/mm3 Hgb (11.2-15.7) gm/L Hct (34.1-44.9) % MCV (79.4-94.8) fl MCH (25.6-32.2) pg MCHC (32.2-35.5) g/dl RDW Std Deviation (36.4-46.3) fL Plt Count (182-369) K/mm3 MPV (9.4-12.3) fl Neut % (Auto) (34.0-71.1) % Lymph % (Auto) (19.3-51.7) % [place] % (Auto) (4.7-12.5) % Eos % (Auto) (0.7-5.8) Baso % (Auto) (0.1-1.2) % Neut # (Auto) (1.56-6.13) K/mm3 Lymph # (Auto) (1.18-3.74) K/mm3 [place] # (Auto) (0.24-0.36) K/mm3 Eos # (Auto) (0.04-0.36) K/mm3 Baso # (Auto) (0.01-0.08) K/mm3 Sodium (136-145) mEq/L Potassium (3.5-5.1) mEq/L Chloride (98-107) mEq/L Carbon Dioxide (21-32) mEq/L Anion Gap (5-15) BUN (7-18) mg/dL Creatinine (0.55-1.02) mg/dL Est Cr Clr Drug Dosing mL/min Estimated GFR (MDRD) (>60) mL/min BUN/Creatinine Ratio (14-18) Glucose (80-115) mg/dL POC Glucose 179 H 188 H 143 H (80-115) mg/dL Calcium (8.5-10.1) mg/dL Magnesium (1.8-2.4) mg/dl C-Reactive Protein (<1.0) mg/dL NT-Pro-B Natriuret Pep (0-125) pg/mL 01/30/18 01/30/18 01/30/18 Range/Units 06:50 06:50 06:50 WBC 6.80 (3.98-10.04) K/mm3 RBC 3.03 L (3.98-5.22) M/mm3 Hgb 9.8 L (11.2-15.7) gm/L Hct 30.7 L (34.1-44.9) % MCV 101.3 H (79.4-94.8) fl MCH 32.3 H (25.6-32.2) pg MCHC 31.9 L (32.2-35.5) g/dl RDW Std Deviation 59.5 H (36.4-46.3) fL Plt Count 279 (182-369) K/mm3 MPV 9.3 L (9.4-12.3) fl Neut % (Auto) 56.8 (34.0-71.1) % Lymph % (Auto) 27.4 (19.3-51.7) % [place] % (Auto) 9.7 (4.7-12.5) % Eos % (Auto) 5.1 (0.7-5.8) Baso % (Auto) 0.7 (0.1-1.2) % Neut # (Auto) 3.86 (1.56-6.13) K/mm3 Lymph # (Auto) 1.86 (1.18-3.74) K/mm3 [place] # (Auto) 0.66 H (0.24-0.36) K/mm3 Eos # (Auto) 0.35 (0.04-0.36) K/mm3 Baso # (Auto) 0.05 (0.01-0.08) K/mm3 Sodium 134 L (136-145) mEq/L Potassium 4.3 (3.5-5.1) mEq/L Chloride 101 (98-107) mEq/L Carbon Dioxide 25 (21-32) mEq/L Anion Gap 12.3 (5-15) BUN 27 H (7-18) mg/dL Creatinine 1.0 (0.55-1.02) mg/dL Est Cr Clr Drug Dosing 41.90 mL/min Estimated GFR (MDRD) 56 (>60) mL/min BUN/Creatinine Ratio 27.0 H (14-18) Glucose 144 H (80-115) mg/dL POC Glucose (80-115) mg/dL Calcium 8.7 (8.5-10.1) mg/dL Magnesium 1.9 (1.8-2.4) mg/dl C-Reactive Protein 0.5 (<1.0) mg/dL NT-Pro-B Natriuret Pep 533 H (0-125) pg/mL Med Orders - Current: Current Medications Acetaminophen (Tylenol) 650 mg PO Q6H PRN PRN Reason: Pain/Fever Last Admin: 01/20/18 08:27 Dose: 650 mg Hydrocodone Bitart/Acetaminophen (Walls 325-5 Mg) 1 - 2 tab PO Q4H PRN PRN Reason: Pain Last Admin: 01/30/18 00:51 Dose: 2 tab Albuterol (Proventil Neb Soln) 2.5 mg NEB Q2H PRN PRN Reason: Shortness Of Breath/wheezing Albuterol/Ipratropium (Duoneb 3.0-0.5 Mg/3 Ml) 3 ml NEB Q4H PRN PRN Reason: Shortness Of Breath/wheezing Artificial Tears (Isopto Tears 0.5% Ophth Soln) 0 ml EYEBOTH BID [facility] Last Admin: 01/29/18 20:56 Dose: 1 drop Bisacodyl (Dulcolax) 5 mg PO DAILY PRN PRN Reason: Constipation Last Admin: 01/22/18 09:35 Dose: 5 mg Clonidine HCl (Catapres) 0.3 mg PO BID [facility] Last Admin: 01/29/18 20:55 Dose: 0.3 mg Cyclobenzaprine HCl (Flexeril) 10 mg PO TID PRN PRN Reason: Muscle Spasm Last Admin: 01/23/18 09:43 Dose: 10 mg Dextrose/Water (Dextrose 50% In Water) 50 ml IVPUSH ASDIRECTED PRN PRN Reason: Hypoglycemia Diphenhydramine HCl (Benadryl) 25 mg IVPUSH Q6H PRN PRN Reason: Pruritis Last Admin: 01/20/18 23:35 Dose: 25 mg Docusate Sodium (Colace) 100 mg PO BID PRN PRN Reason: Constipation Docusate Sodium (Colace) 100 mg PO BID [facility] Last Admin: 01/29/18 20:54 Dose: 100 mg Enoxaparin Sodium (Lovenox) 40 mg SUBCUT DAILY [facility] Last Admin: 01/29/18 08:55 Dose: 40 mg Famotidine (Pepcid) 20 mg PO DAILY [facility] Last Admin: 01/29/18 08:55 Dose: 20 mg Furosemide (Lasix) 40 mg PO DAILY [facility] Last Admin: 01/29/18 08:55 Dose: 40 mg Hydralazine HCl (Apresoline) 20 mg IVPUSH Q6H PRN PRN Reason: Hypertension Last Admin: 01/23/18 02:14 Dose: 20 mg Hydromorphone HCl (Dilaudid) 0.5 mg IVPUSH Q4H PRN PRN Reason: Pain Last Admin: 01/22/18 22:28 Dose: 0.5 mg Insulin Aspart (Novolog) 0 unit SUBCUT QIDACANDBED [facility]; Protocol Last Admin: 01/30/18 06:32 Dose: Not Given Levothyroxine Sodium (Synthroid) 100 mcg PO DAILY@0600 [facility] Last Admin: 01/30/18 05:06 Dose: 100 mcg Losartan Potassium (Cozaar) 100 mg PO BEDTIME [facility] Last Admin: 01/29/18 20:55 Dose: 100 mg Magnesium Hydroxide (Milk Of Magnesia) 30 ml PO Q12H PRN PRN Reason: Constipation Last Admin: 01/22/18 18:14 Dose: 30 ml Memantine (Namenda) 5 mg PO DAILY [facility] Last Admin: 01/29/18 08:55 Dose: 5 mg Metformin HCl (Glucophage) 500 mg PO BIDMEALS [facility] Metoprolol Succinate (Toprol Xl) 25 mg PO DAILY [facility] Last Admin: 01/29/18 08:55 Dose: 25 mg Metoprolol Tartrate (Lopressor) 5 mg IVPUSH Q4H PRN PRN Reason: Hypertension Last Admin: 01/21/18 09:45 Dose: 5 mg Miscellaneous Information (Remove Patch) 1 ea TRDERM Q7D [facility] Naloxone HCl (Narcan) 0.1 mg IVPUSH Q5M PRN PRN Reason: Oversedation Ondansetron HCl (Zofran) 4 mg IVPUSH Q4H PRN PRN Reason: Nausea/Vomiting Last Admin: 01/20/18 23:35 Dose: 4 mg Imatinib Mesylate [ (Gleevec] 600 Mg) 0 each PO DAILY [facility] Last Admin: 01/29/18 08:55 Dose: 600 each Loxapine 50 Mg 0 each PO BEDTIME [facility] Last Admin: 01/29/18 20:56 Dose: 2 each Loxapine 25 Mg 0 each PO DAILY@1800 [facility] Last Admin: 01/29/18 18:17 Dose: 25 each Polyethylene Glycol (Miralax) 17 gm PO DAILY PRN PRN Reason: Constipation Senna/Docusate Sodium (Senna Plus) 1 tab PO BID PRN PRN Reason: Constipation Simvastatin (Zocor) 10 mg PO BEDTIME [facility] Last Admin: 01/29/18 20:56 Dose: 10 mg Sodium Chloride (Saline Flush) 10 ml FLUSH ONETIME PRN PRN Reason: IV FLUSH Last Admin: 01/21/18 18:06 Dose: 10 ml Spironolactone (Aldactone) 25 mg PO DAILY [facility] Last Admin: 01/29/18 08:55 Dose: 25 mg Temazepam (Restoril) 15 mg PO BEDTIME [facility] Last Admin: 01/29/18 20:54 Dose: 15 mg Tramadol HCl (Ultram) 50 mg PO Q8H [facility] Last Admin: 01/30/18 05:05 Dose: 50 mg Trazodone HCl (Trazodone) 100 mg PO BEDTIME [facility] Last Admin: 01/29/18 20:55 Dose: 100 mg Discontinued Medications Albuterol (Proventil Neb Soln) 2.5 mg NEB ONETIME ONE Stop: 01/20/18 13:58 Last Admin: 01/20/18 19:13 Dose: Not Given Artificial Tears (Isopto Tears 0.5% Ophth Soln) 0 ml EYEBOTH BID [facility] Last Admin: 01/19/18 15:00 Dose: Not Given Artificial Tears (Isopto Tears 0.5% Ophth Soln) 0 ml EYEBOTH BID [facility] Last Admin: 01/19/18 14:20 Dose: 1 drop Bisacodyl (Dulcolax) 10 mg RECTAL ONETIME ONE Stop: 01/23/18 06:12 Last Admin: 01/23/18 06:25 Dose: 10 mg Bupivacaine HCl (Sensorcaine-Mpf 0.75%) Confirm Administered Dose 30 ml .ROUTE .STK-MED ONE Stop: 01/20/18 11:45 Bupivacaine HCl (Marcaine 0.25%) Confirm Administered Dose 30 ml .ROUTE .STK- MED ONE Stop: 01/20/18 12:15 Last Admin: 01/20/18 13:48 Dose: 30 ml Cefazolin Sodium (Ancef) Confirm Administered Dose 2 gm .ROUTE .STK-MED ONE Stop: 01/20/18 11:46 Clonidine HCl (Catapres) 0.3 mg PO BID [facility] Clonidine HCl (Catapres) 0.1 mg PO ONETIME ONE Stop: 01/19/18 19:38 Last Admin: 01/19/18 19:59 Dose: 0.1 mg Clonidine HCl (Catapres) 0.1 mg PO Q8H [facility] Last Admin: 01/22/18 04:14 Dose: 0.1 mg Clonidine HCl (Catapres-Tts 3) 0.3 mg TRDERM Q7D ONE Stop: 01/27/18 22:01 Last Admin: 01/27/18 22:21 Dose: 0.3 mg Dextrose (Glutose 15) 15 gm PO ASDIRECTED PRN PRN Reason: LOW BS Famotidine (Pepcid) 20 mg PO BID [facility] Last Admin: 01/19/18 13:10 Dose: 20 mg Famotidine (Pepcid) 20 mg PO Q12H [facility] Last Admin: 01/20/18 17:13 Dose: Not Given Famotidine (Pepcid) 20 mg PO BID@0600,1800 [facility] Last Admin: 01/21/18 05:28 Dose: 20 mg Fentanyl (Sublimaze) Confirm Administered Dose 100 mcg .ROUTE .STK-MED ONE Stop: 01/20/18 11:46 Fentanyl (Sublimaze) 50 mcg IVPUSH Q5M PRN PRN Reason: Pain Furosemide (Lasix) 40 mg PO TID [facility] Last Admin: 01/19/18 14:19 Dose: 40 mg Furosemide (Lasix) 40 mg PO TID [facility] Furosemide (Lasix) 40 mg PO DAILY [facility] Furosemide (Lasix) 40 mg IVPUSH NOW ONE Stop: 01/20/18 05:01 Last Admin: 01/20/18 06:00 Dose: 40 mg Furosemide (Lasix) 40 mg IVPUSH ONETIME ONE Stop: 01/21/18 12:01 Last Admin: 01/21/18 13:27 Dose: 40 mg Hydromorphone HCl (Dilaudid) 1 mg IVPUSH ONETIME ONE Stop: 01/19/18 05:25 Last Admin: 01/19/18 05:48 Dose: 1 mg Hydromorphone HCl (Dilaudid) 0.5 mg IVPUSH ONETIME ONE Stop: 01/19/18 07:33 Last Admin: 01/19/18 07:53 Dose: 0.5 mg Hydromorphone HCl (Dilaudid) 0.5 mg IM ONETIME ONE Stop: 01/21/18 13:18 Last Admin: 01/21/18 13:15 Dose: Not Given Sodium Chloride (Normal Saline) 1,000 mls @ 250 mls/hr IV ASDIRECTED [facility] Last Admin: 01/19/18 05:47 Dose: 250 mls/hr Lactated Ringer's (Ringers, Lactated) 1,000 mls @ 125 mls/hr IV ASDIRECTED [facility] Last Infusion: 01/20/18 12:30 Dose: 0 mls/hr Vancomycin HCl 1 gm/ Sodium (Chloride) 250 mls @ 250 mls/hr IV ONETIME ONE Stop: 01/20/18 14:14 Last Admin: 01/20/18 19:13 Dose: Not Given Sodium Chloride (Normal Saline) Confirm Administered Dose 100 mls @ as directed .ROUTE .STK-MED ONE Stop: 01/20/18 14:00 Lactated Ringer's (Ringers, Lactated) Confirm Administered Dose 1,000 mls @ as directed .ROUTE .STK-MED ONE Stop: 01/20/18 14:49 Lactated Ringer's (Ringers, Lactated) Confirm Administered Dose 1,000 mls @ as directed .ROUTE .STK-MED ONE Stop: 01/20/18 14:49 Cefazolin Sodium/Dextrose 2 gm (/ Premix) 50 mls @ 100 mls/hr IV Q8H [facility] Stop: 01/21/18 12:29 Last Admin: 01/21/18 11:04 Dose: 100 mls/hr Sodium Chloride (Normal Saline) 500 mls @ 75 mls/hr IV ONETIME ONE Stop: 01/21/18 17:39 Last Admin: 01/21/18 11:44 Dose: 75 mls/hr Iopamidol (Isovue-300 (61%)) 100 ml IVPUSH ONETIME ONE Stop: 01/19/18 15:46 Last Admin: 01/19/18 15:49 Dose: 100 ml Ketamine HCl (Ketalar) Confirm Administered Dose 500 mg .ROUTE .STK-MED ONE Stop: 01/20/18 11:47 Ketorolac Tromethamine (Toradol) 15 mg IVPUSH Q6H [facility] Stop: 01/20/18 17:01 Last Admin: 01/20/18 18:02 Dose: 15 mg Levothyroxine Sodium (Synthroid) 100 mcg PO DAILY [facility] Last Admin: 01/22/18 09:41 Dose: Not Given Lidocaine HCl (Xylocaine-Mpf 1%) Confirm Administered Dose 5 ml .ROUTE .STK-MED ONE Stop: 01/20/18 12:33 Losartan Potassium (Cozaar) 100 mg PO DAILY [facility] Last Admin: 01/19/18 14:19 Dose: 100 mg Metoprolol Succinate (Toprol Xl) 25 mg PO DAILY [facility] Last Admin: 01/19/18 14:14 Dose: 25 mg Midazolam HCl (Versed 1 Mg/Ml) Confirm Administered Dose 2 mg .ROUTE .STK-MED ONE Stop: 01/20/18 11:46 Midazolam HCl (Versed 1 Mg/Ml) Confirm Administered Dose 2 mg .ROUTE .STK-MED ONE Stop: 01/20/18 13:28 Morphine Sulfate (Duramorph Pf) Confirm Administered Dose 1 mg .ROUTE .STK-MED ONE Stop: 01/20/18 12:28 Naloxone HCl (Narcan) 0.5 mg IVPUSH ONETIME ONE Stop: 01/19/18 17:04 Last Admin: 01/19/18 17:28 Dose: 0.5 mg Non-Formulary Medication (Acetaminophen) 650 mg PO Q8H PRN PRN Reason: Pain Ondansetron HCl (Zofran) 4 mg IVPUSH ONETIME ONE Stop: 01/19/18 05:25 Last Admin: 01/19/18 05:47 Dose: 4 mg Ondansetron HCl (Zofran) 4 mg IVPUSH ONETIME PRN PRN Reason: Nausea/Vomiting Ondansetron HCl (Zofran) Confirm Administered Dose 4 mg .ROUTE .STK-MED ONE Stop: 01/20/18 14:49 Pantoprazole Sodium (Protonix Iv) 40 mg IVPUSH DAILY [facility] Pantoprazole Sodium (Protonix Iv) 40 mg IVPUSH BID [facility] Last Admin: 01/20/18 09:37 Dose: 40 mg Loxapine 25 Mg 0 each PO DAILY@1400 [facility] Last Admin: 01/19/18 15:00 Dose: Not Given Phenylephrine HCl (Rodney-Synephrine) Confirm Administered Dose 10 mg .ROUTE .STK- MED ONE Stop: 01/20/18 14:00 Phenylephrine HCl (Phenylephrine In Ns 100 Mcg/Ml) Confirm Administered Dose 1 mg .ROUTE .STK-MED ONE Stop: 01/20/18 14:01 Propofol (Diprivan 20 Ml) Confirm Administered Dose 600 mg .ROUTE .STK-MED ONE Stop: 01/20/18 11:46 Temazepam (Restoril) 30 mg PO BEDTIME [facility] Temazepam (Restoril) 7.5 mg PO BEDTIME [facility] Last Admin: 01/24/18 21:26 Dose: 7.5 mg Temazepam (Restoril) 7.5 mg PO ONETIME ONE Stop: 01/24/18 22:03 Last Admin: 01/24/18 22:40 Dose: 7.5 mg - Exam Wound/Incisions: Other (Shadowing noted at superior lateral left thigh Aquacel. No ominous signs appreciated at area.) Extremities: Other (Shashi's negative for BLE. Left thigh soft.) - Problem List Review Problem List Initiated/Reviewed/Updated: Yes - My Orders Last 24 Hours: Active Orders 24 hr Category Date Time Status Communication Order [RC] ROUTINE Care 01/30/18 08:12 Active BASIC METABOLIC PANEL,BMP [CHEM] AM Lab 01/31/18 05:11 Ordered BASIC METABOLIC PANEL,BMP [CHEM] AM Lab 02/01/18 05:11 Ordered BASIC METABOLIC PANEL,BMP [CHEM] AM Lab 02/02/18 05:11 Ordered CBC WITH AUTO DIFF [HEME] AM Lab 01/31/18 05:11 Ordered CBC WITH AUTO DIFF [HEME] AM Lab 02/01/18 05:11 Ordered CBC WITH AUTO DIFF [HEME] AM Lab 02/02/18 05:11 Ordered CRP [C-REACTIVE PROTEIN] [CHEM] AM Lab 01/31/18 05:11 Ordered CRP [C-REACTIVE PROTEIN] [CHEM] AM Lab 02/01/18 05:11 Ordered CRP [C-REACTIVE PROTEIN] [CHEM] AM Lab 02/02/18 05:11 Ordered MAGNESIUM [CHEM] AM Lab 01/31/18 05:11 Ordered MAGNESIUM [CHEM] AM Lab 02/01/18 05:11 Ordered MAGNESIUM [CHEM] AM Lab 02/02/18 05:11 Ordered Remove Patch Med 02/03/18 22:15 Active 1 ea TRDERM Q7D Medication Orders Acetaminophen (Tylenol) 650 mg PO Q6H PRN PRN Reason: Pain/Fever Last Admin: 01/20/18 08:27 Dose: 650 mg Admin: 01/19/18 19:01 Dose: 650 mg Hydrocodone Bitart/Acetaminophen (Walls 325-5 Mg) 1 - 2 tab PO Q4H PRN PRN Reason: Pain Last Admin: 01/30/18 00:51 Dose: 2 tab Admin: 01/27/18 12:38 Dose: 2 tab Admin: 01/26/18 09:38 Dose: 2 tab Admin: 01/24/18 21:26 Dose: 2 tab Admin: 01/24/18 16:52 Dose: 1 tab Admin: 01/23/18 09:43 Dose: 2 tab Admin: 01/22/18 09:18 Dose: 2 tab Admin: 01/21/18 15:20 Dose: 2 tab Admin: 01/21/18 07:33 Dose: 2 tab Admin: 01/21/18 00:05 Dose: 2 tab Albuterol (Proventil Neb Soln) 2.5 mg NEB Q2H PRN PRN Reason: Shortness Of Breath/wheezing Albuterol/Ipratropium (Duoneb 3.0-0.5 Mg/3 Ml) 3 ml NEB Q4H PRN PRN Reason: Shortness Of Breath/wheezing Artificial Tears (Isopto Tears 0.5% Ophth Soln) 0 ml EYEBOTH BID [facility] Last Admin: 01/29/18 20:56 Dose: 1 drop Admin: 01/29/18 08:55 Dose: 1 drop Admin: 01/28/18 22:20 Dose: 1 drop Admin: 01/28/18 08:37 Dose: 1 drop Admin: 01/27/18 21:43 Dose: 1 drop Admin: 01/27/18 10:12 Dose: 1 drop Admin: 01/26/18 21:09 Dose: 1 drop Admin: 01/26/18 09:48 Dose: 1 drop Admin: 01/25/18 20:55 Dose: 1 drop Admin: 01/25/18 08:00 Dose: 1 drop Admin: 01/24/18 21:25 Dose: 1 drop Admin: 01/24/18 09:27 Dose: 1 drop Admin: 01/23/18 20:07 Dose: 1 drop Admin: 01/23/18 09:19 Dose: 1 drop Admin: 01/22/18 20:37 Dose: 2 drop Admin: 01/22/18 09:34 Dose: 1 drop Admin: 01/21/18 20:36 Dose: 1 drop Admin: 01/21/18 08:11 Dose: 1 drop Admin: 01/20/18 20:47 Dose: 1 drop Admin: 01/20/18 09:37 Dose: 1 drop Admin: 01/19/18 20:00 Dose: 1 drop Bisacodyl (Dulcolax) 5 mg PO DAILY PRN PRN Reason: Constipation Last Admin: 01/22/18 09:35 Dose: 5 mg Clonidine HCl (Catapres) 0.3 mg PO BID [facility] Last Admin: 01/29/18 20:55 Dose: 0.3 mg Admin: 01/29/18 08:55 Dose: 0.3 mg Admin: 01/28/18 22:18 Dose: 0.3 mg Admin: 01/28/18 08:33 Dose: 0.3 mg Admin: 01/27/18 21:44 Dose: 0.3 mg Admin: 01/27/18 10:22 Dose: 0.3 mg Admin: 01/26/18 21:09 Dose: 0.3 mg Admin: 01/26/18 09:43 Dose: 0.3 mg Admin: 01/25/18 20:50 Dose: 0.3 mg Admin: 01/25/18 08:01 Dose: 0.3 mg Admin: 01/24/18 21:27 Dose: 0.3 mg Admin: 01/24/18 09:32 Dose: 0.3 mg Admin: 01/23/18 20:06 Dose: 0.3 mg Admin: 01/23/18 09:20 Dose: 0.3 mg Admin: 01/22/18 20:35 Dose: 0.3 mg Admin: 01/22/18 09:34 Dose: 0.3 mg Cyclobenzaprine HCl (Flexeril) 10 mg PO TID PRN PRN Reason: Muscle Spasm Last Admin: 01/23/18 09:43 Dose: 10 mg Admin: 01/22/18 09:20 Dose: 10 mg Admin: 01/21/18 16:57 Dose: 10 mg Admin: 01/21/18 05:28 Dose: 10 mg Admin: 01/20/18 02:56 Dose: 10 mg Admin: 01/19/18 19:02 Dose: 10 mg Dextrose/Water (Dextrose 50% In Water) 50 ml IVPUSH ASDIRECTED PRN PRN Reason: Hypoglycemia Diphenhydramine HCl (Benadryl) 25 mg IVPUSH Q6H PRN PRN Reason: Pruritis Last Admin: 01/20/18 23:35 Dose: 25 mg Docusate Sodium (Colace) 100 mg PO BID PRN PRN Reason: Constipation Docusate Sodium (Colace) 100 mg PO BID [facility] Last Admin: 01/29/18 20:54 Dose: 100 mg Admin: 01/29/18 08:55 Dose: 100 mg Admin: 01/28/18 22:00 Dose: 100 mg Admin: 01/28/18 08:33 Dose: 100 mg Admin: 01/27/18 21:40 Dose: 100 mg Admin: 01/27/18 10:08 Dose: 100 mg Admin: 01/26/18 21:11 Dose: 100 mg Admin: 01/26/18 09:38 Dose: 100 mg Admin: 01/25/18 20:49 Dose: 100 mg Admin: 01/25/18 08:02 Dose: 100 mg Admin: 01/24/18 21:29 Dose: 100 mg Admin: 01/24/18 09:27 Dose: 100 mg Admin: 01/23/18 20:07 Dose: 100 mg Admin: 01/23/18 09:23 Dose: 100 mg Admin: 01/22/18 20:36 Dose: 100 mg Admin: 01/22/18 09:34 Dose: 100 mg Admin: 01/21/18 20:34 Dose: 100 mg Admin: 01/21/18 08:10 Dose: 100 mg Admin: 01/20/18 20:46 Dose: 100 mg Enoxaparin Sodium (Lovenox) 40 mg SUBCUT DAILY [facility] Last Admin: 01/29/18 08:55 Dose: 40 mg Admin: 01/28/18 08:36 Dose: 40 mg Admin: 01/27/18 10:10 Dose: 40 mg Admin: 01/26/18 09:46 Dose: 40 mg Admin: 01/25/18 08:01 Dose: 40 mg Admin: 01/24/18 09:29 Dose: 40 mg Admin: 01/23/18 09:24 Dose: 40 mg Admin: 01/22/18 09:36 Dose: 40 mg Admin: 01/21/18 08:11 Dose: 40 mg Famotidine (Pepcid) 20 mg PO DAILY [facility] Last Admin: 01/29/18 08:55 Dose: 20 mg Admin: 01/28/18 08:34 Dose: 20 mg Admin: 01/27/18 10:07 Dose: 20 mg Admin: 01/26/18 09:44 Dose: 20 mg Admin: 01/25/18 08:01 Dose: 20 mg Admin: 01/24/18 09:27 Dose: 20 mg Admin: 01/23/18 09:20 Dose: 20 mg Admin: 01/22/18 09:35 Dose: 20 mg Furosemide (Lasix) 40 mg PO DAILY [facility] Last Admin: 01/29/18 08:55 Dose: 40 mg Admin: 01/28/18 08:33 Dose: 40 mg Admin: 01/27/18 10:09 Dose: 40 mg Admin: 01/26/18 09:44 Dose: 40 mg Admin: 01/25/18 08:01 Dose: 40 mg Admin: 01/24/18 09:28 Dose: 40 mg Admin: 01/23/18 09:23 Dose: 40 mg Admin: 01/22/18 09:35 Dose: 40 mg Admin: 01/21/18 08:10 Dose: 40 mg Hydralazine HCl (Apresoline) 20 mg IVPUSH Q6H PRN PRN Reason: Hypertension Last Admin: 01/23/18 02:14 Dose: 20 mg Admin: 01/20/18 08:57 Dose: 20 mg Admin: 01/19/18 17:28 Dose: 20 mg Hydromorphone HCl (Dilaudid) 0.5 mg IVPUSH Q4H PRN PRN Reason: Pain Last Admin: 01/22/18 22:28 Dose: 0.5 mg Admin: 01/21/18 18:07 Dose: 0.5 mg Admin: 01/21/18 13:22 Dose: 0.5 mg Admin: 01/19/18 21:15 Dose: 0.5 mg Insulin Aspart (Novolog) 0 unit SUBCUT QIDACANDBED [facility]; Protocol Last Admin: 01/30/18 06:32 Dose: Not Given Admin: 01/29/18 21:11 Dose: 1 unit Admin: 01/29/18 18:17 Dose: 1 unit Admin: 01/29/18 13:37 Dose: Not Given Admin: 01/29/18 08:55 Dose: 1 unit Admin: 01/28/18 22:20 Dose: 1 unit Admin: 01/28/18 17:05 Dose: 1 unit Admin: 01/28/18 11:23 Dose: Admin: 01/28/18 08:35 Dose: 1 unit Admin: 01/27/18 22:21 Dose: 1 unit Admin: 01/27/18 17:18 Dose: Not Given Admin: 01/27/18 11:53 Dose: 1 unit Admin: 01/27/18 10:10 Dose: 1 unit Admin: 01/26/18 21:31 Dose: 2 unit Admin: 01/26/18 17:40 Dose: 1 unit Admin: 01/26/18 11:27 Dose: 1 unit Admin: 01/26/18 09:34 Dose: 1 unit Admin: 01/25/18 21:06 Dose: 2 unit Admin: 01/25/18 17:25 Dose: 1 unit Admin: 01/25/18 14:51 Dose: Not Given Admin: 01/25/18 06:08 Dose: Not Given Admin: 01/24/18 21:30 Dose: 1 unit Admin: 01/24/18 16:52 Dose: 1 unit Admin: 01/24/18 12:01 Dose: Not Given Admin: 01/24/18 06:22 Dose: 1 unit Admin: 01/23/18 23:22 Dose: 1 unit Admin: 01/23/18 17:15 Dose: Not Given Admin: 01/23/18 11:56 Dose: 1 unit Admin: 01/23/18 06:31 Dose: 1 unit Admin: 01/22/18 22:22 Dose: 1 unit Admin: 01/22/18 16:43 Dose: Not Given Admin: 01/22/18 11:44 Dose: 2 unit Admin: 01/22/18 06:15 Dose: Not Given Admin: 01/21/18 21:20 Dose: 1 unit Admin: 01/21/18 16:56 Dose: 1 unit Admin: 01/21/18 11:14 Dose: 1 unit Admin: 01/21/18 06:07 Dose: Not Given Admin: 01/20/18 22:07 Dose: 1 unit Admin: 01/20/18 17:58 Dose: Not Given Admin: 01/20/18 12:02 Dose: Not Given Admin: 01/20/18 07:33 Dose: Admin: 01/19/18 21:10 Dose: Admin: 01/19/18 17:54 Dose: Not Given Levothyroxine Sodium (Synthroid) 100 mcg PO DAILY@0600 CELI Last Admin: 01/30/18 05:06 Dose: 100 mcg Admin: 01/29/18 05:38 Dose: 100 mcg Admin: 01/28/18 06:16 Dose: 100 mcg Admin: 01/27/18 05:58 Dose: 100 mcg Admin: 01/26/18 06:35 Dose: 100 mcg Admin: 01/25/18 05:41 Dose: 100 mcg Admin: 01/24/18 06:22 Dose: 100 mcg Admin: 01/23/18 05:41 Dose: 100 mcg Admin: 01/22/18 06:04 Dose: 100 mcg Admin: 01/21/18 05:28 Dose: 100 mcg Admin: 01/20/18 06:35 Dose: 100 mcg Admin: 01/19/18 14:19 Dose: 100 mcg Losartan Potassium (Cozaar) 100 mg PO BEDTIME [facility] Last Admin: 01/29/18 20:55 Dose: 100 mg Admin: 01/28/18 22:00 Dose: 100 mg Admin: 01/27/18 21:44 Dose: 100 mg Admin: 01/26/18 21:12 Dose: 100 mg Admin: 01/25/18 20:49 Dose: 100 mg Admin: 01/24/18 21:28 Dose: 100 mg Admin: 01/23/18 20:09 Dose: 100 mg Admin: 01/22/18 20:36 Dose: 100 mg Magnesium Hydroxide (Milk Of Magnesia) 30 ml PO Q12H PRN PRN Reason: Constipation Last Admin: 01/22/18 18:14 Dose: 30 ml Memantine (Namenda) 5 mg PO DAILY [facility] Last Admin: 01/29/18 08:55 Dose: 5 mg Admin: 01/28/18 08:34 Dose: 5 mg Admin: 01/27/18 10:06 Dose: 5 mg Admin: 01/26/18 09:42 Dose: 5 mg Admin: 01/25/18 08:02 Dose: 5 mg Admin: 01/24/18 09:28 Dose: 5 mg Admin: 01/23/18 09:23 Dose: 5 mg Admin: 01/22/18 09:36 Dose: 5 mg Admin: 01/21/18 08:10 Dose: 5 mg Admin: 01/20/18 09:37 Dose: 5 mg Admin: 01/19/18 14:19 Dose: 5 mg Metformin HCl (Glucophage) 500 mg PO BIDMEALS [facility] Metoprolol Succinate (Toprol Xl) 25 mg PO DAILY [facility] Last Admin: 01/29/18 08:55 Dose: 25 mg Admin: 01/28/18 08:34 Dose: 25 mg Admin: 01/27/18 10:21 Dose: 25 mg Admin: 01/26/18 09:37 Dose: 25 mg Admin: 01/25/18 08:01 Dose: 25 mg Admin: 01/24/18 09:31 Dose: 25 mg Admin: 01/23/18 09:23 Dose: 25 mg Admin: 01/22/18 09:35 Dose: 25 mg Metoprolol Tartrate (Lopressor) 5 mg IVPUSH Q4H PRN PRN Reason: Hypertension Last Admin: 01/21/18 09:45 Dose: 5 mg Admin: 01/19/18 18:03 Dose: 5 mg Miscellaneous Information (Remove Patch) 1 ea TRDERM Q7D CELI Naloxone HCl (Narcan) 0.1 mg IVPUSH Q5M PRN PRN Reason: Oversedation Ondansetron HCl (Zofran) 4 mg IVPUSH Q4H PRN PRN Reason: Nausea/Vomiting Last Admin: 01/20/18 23:35 Dose: 4 mg Admin: 01/20/18 16:53 Dose: 4 mg Admin: 01/19/18 21:15 Dose: 4 mg Admin: 01/19/18 13:10 Dose: 4 mg Imatinib Mesylate [ (Gleevec] 600 Mg) 0 each PO DAILY [facility] Last Admin: 01/29/18 08:55 Dose: 600 each Admin: 01/28/18 08:38 Dose: 600 each Admin: 01/27/18 10:26 Dose: 600 each Admin: 01/26/18 09:46 Dose: 600 each Admin: 01/25/18 08:03 Dose: 600 each Admin: 01/24/18 09:29 Dose: 600 each Admin: 01/23/18 09:26 Dose: 600 each Admin: 01/22/18 09:38 Dose: 600 each Admin: 01/21/18 08:12 Dose: 600 each Admin: 01/20/18 09:38 Dose: 600 each Loxapine 50 Mg 0 each PO BEDTIME [facility] Last Admin: 01/29/18 20:56 Dose: 2 each Admin: 01/28/18 22:00 Dose: 50 each Admin: 01/27/18 21:44 Dose: 50 each Admin: 01/26/18 21:12 Dose: 50 each Admin: 01/25/18 20:51 Dose: 1 each Admin: 01/24/18 21:29 Dose: 50 each Admin: 01/23/18 20:10 Dose: 50 each Admin: 01/22/18 20:38 Dose: 50 each Admin: 01/21/18 20:37 Dose: 50 each Admin: 01/20/18 20:46 Dose: 50 each Admin: 01/19/18 20:03 Dose: 50 each Loxapine 25 Mg 0 each PO DAILY@1800 [facility] Last Admin: 01/29/18 18:17 Dose: 25 each Admin: 01/28/18 17:05 Dose: 1 each Admin: 01/27/18 18:03 Dose: 1 each Admin: 01/26/18 17:32 Dose: 1 each Admin: 01/25/18 17:26 Dose: 1 each Admin: 01/24/18 19:27 Dose: 1 each Admin: 01/24/18 18:45 Dose: Admin: 01/23/18 18:36 Dose: 1 each Admin: 01/22/18 18:13 Dose: 1 each Admin: 01/21/18 18:08 Dose: 1 each Admin: 01/20/18 18:03 Dose: 1 each Admin: 01/19/18 17:40 Dose: 25 each Polyethylene Glycol (Miralax) 17 gm PO DAILY PRN PRN Reason: Constipation Senna/Docusate Sodium (Senna Plus) 1 tab PO BID PRN PRN Reason: Constipation Simvastatin (Zocor) 10 mg PO BEDTIME [facility] Last Admin: 01/29/18 20:56 Dose: 10 mg Admin: 01/28/18 22:00 Dose: 10 mg Admin: 01/27/18 21:41 Dose: 10 mg Admin: 01/26/18 21:11 Dose: 10 mg Admin: 01/25/18 20:49 Dose: 10 mg Admin: 01/24/18 21:29 Dose: 10 mg Admin: 01/23/18 20:06 Dose: 10 mg Admin: 01/22/18 20:36 Dose: 10 mg Admin: 01/21/18 20:34 Dose: 10 mg Admin: 01/20/18 20:46 Dose: 10 mg Admin: 01/19/18 20:01 Dose: 10 mg Sodium Chloride (Saline Flush) 10 ml FLUSH ONETIME PRN PRN Reason: IV FLUSH Last Admin: 01/21/18 18:06 Dose: 10 ml Admin: 01/19/18 15:49 Dose: 10 ml Spironolactone (Aldactone) 25 mg PO DAILY [facility] Last Admin: 01/29/18 08:55 Dose: 25 mg Admin: 01/28/18 08:34 Dose: 25 mg Admin: 01/27/18 10:10 Dose: 25 mg Admin: 01/26/18 09:40 Dose: 25 mg Admin: 01/25/18 08:01 Dose: 25 mg Admin: 01/24/18 09:27 Dose: 25 mg Admin: 01/23/18 09:23 Dose: 25 mg Admin: 01/22/18 09:35 Dose: 25 mg Admin: 01/21/18 08:10 Dose: 25 mg Admin: 01/20/18 09:37 Dose: 25 mg Temazepam (Restoril) 15 mg PO BEDTIME [facility] Last Admin: 01/29/18 20:54 Dose: 15 mg Admin: 01/28/18 22:00 Dose: 15 mg Admin: 01/27/18 21:40 Dose: 15 mg Admin: 01/26/18 21:11 Dose: 15 mg Admin: 01/25/18 20:50 Dose: 15 mg Admin: 01/24/18 22:40 Dose: Not Given Tramadol HCl (Ultram) 50 mg PO Q8H [facility] Last Admin: 01/30/18 05:05 Dose: 50 mg Admin: 01/29/18 18:18 Dose: 50 mg Admin: 01/29/18 13:30 Dose: 50 mg Admin: 01/29/18 03:42 Dose: 50 mg Admin: 01/28/18 18:29 Dose: 50 mg Admin: 01/28/18 12:03 Dose: 50 mg Admin: 01/28/18 03:55 Dose: 50 mg Admin: 01/27/18 18:02 Dose: 50 mg Admin: 01/27/18 10:18 Dose: 50 mg Admin: 01/27/18 03:04 Dose: 50 mg Admin: 01/26/18 18:08 Dose: 50 mg Admin: 01/26/18 11:26 Dose: 50 mg Admin: 01/26/18 02:24 Dose: 50 mg Admin: 01/25/18 20:50 Dose: 50 mg Admin: 01/25/18 14:41 Dose: 50 mg Admin: 01/25/18 03:40 Dose: 50 mg Admin: 01/24/18 18:44 Dose: 50 mg Admin: 01/24/18 11:59 Dose: 50 mg Admin: 01/24/18 02:02 Dose: 50 mg Admin: 01/23/18 18:36 Dose: 50 mg Admin: 01/23/18 11:56 Dose: 50 mg Admin: 04/24/18 02:14 Dose: 50 mg Admin: 01/22/18 18:13 Dose: 50 mg Admin: 01/22/18 11:43 Dose: 50 mg Admin: 01/22/18 02:55 Dose: 50 mg Admin: 01/21/18 20:37 Dose: 50 mg Admin: 01/21/18 11:02 Dose: 50 mg Admin: 01/21/18 04:20 Dose: 50 mg Admin: 01/20/18 18:03 Dose: 50 mg Admin: 01/20/18 10:33 Dose: 50 mg Admin: 01/20/18 02:56 Dose: 50 mg Admin: 01/19/18 18:04 Dose: 50 mg Admin: 01/19/18 11:17 Dose: 50 mg Trazodone HCl (Trazodone) 100 mg PO BEDTIME [facility] Last Admin: 01/29/18 20:55 Dose: 100 mg Admin: 01/28/18 22:00 Dose: 100 mg Admin: 01/27/18 21:40 Dose: 100 mg Admin: 01/26/18 21:10 Dose: 100 mg Admin: 01/25/18 20:50 Dose: 100 mg Admin: 01/24/18 21:33 Dose: 100 mg Admin: 01/23/18 20:06 Dose: 100 mg Admin: 01/22/18 20:35 Dose: 100 mg Admin: 01/21/18 20:35 Dose: 100 mg Admin: 01/20/18 20:46 Dose: 100 mg Admin: 01/19/18 20:01 Dose: 100 mg - Assessment Assessment (Free Text/Narrative):: POD#10 - s/p IM paul placement for left femur fracture - Plan Plan (Free Text/Narrative):: 1. Discharge when placement available. 2. The pt has progressed with therapy. The pt's case was discussed with Dr. Lanza.
[2018-01-30] MEDS: Hypromellose 0.5% Ophth Soln 15 ML Bottle EYEBOTH SCH ×2 (08:49→21:54)
[2018-01-30] MEDS: Enoxaparin 40 MG/0.4 ML Syringe SUBCUT SCH (08:49)
[2018-01-30] MEDS: cloNIDine 0.1 MG Tab PO SCH ×2 (08:50→21:55)
[2018-01-30] MEDS: Docusate Sodium 100 MG Cap PO SCH ×2 (08:53→21:55)
[2018-01-30] MEDS: Memantine 10 MG Tab PO SCH (08:53)
[2018-01-30] MEDS: Famotidine 20 MG Tab PO SCH (08:53)
[2018-01-30] MEDS: Metoprolol Succinate 25 MG Tab.ER PO SCH (08:53)
[2018-01-30] MEDS: Furosemide 40 MG Tab PO SCH (08:54)
[2018-01-30] MEDS: IMATINIB MESYLATE 600 MG PO SCH (08:54)
[2018-01-30] MEDS: Spironolactone 25 MG Tab PO SCH (08:54)
--- NOTE | 2018-01-30 10:46 | PCM.PN ---
- General Info Date of Service: 01/30/18 Admission Dx/Problem (Free Text): Admission Diagnosis/Problem Admission Diagnosis/Problem Fall at home Subjective Update: In to see Francoise. She is sitting in the chair. She has been doing extremely well. She has been walking with PT/OT and making great improvements. Continue current treatment pending placement. No nursing or patient concerns. Functional Status: Reports: Pain Controlled, Tolerating Diet, Ambulating, Urinating. Denies: New Symptoms - Review of Systems General: Reports: No Symptoms, Weakness. Denies: Fever, Fatigue, Malaise, Chills HEENT: Reports: No Symptoms Pulmonary: Reports: No Symptoms. Denies: Shortness of Breath, Cough, Sputum Cardiovascular: Reports: No Symptoms. Denies: Chest Pain, Palpitations, Dyspnea on Exertion Gastrointestinal: Reports: No Symptoms. Denies: Abdominal Pain, Constipation, Nausea, Vomiting Genitourinary: Reports: No Symptoms Musculoskeletal: Reports: No Symptoms Skin: Reports: No Symptoms Neurological: Reports: Difficulty Walking, Weakness, Gait Disturbance. Denies: Dizziness, Headache, Numbness, Trouble Speaking Psychiatric: Reports: No Symptoms - Patient Data Vitals - Most Recent: Last Vital Signs Temp 98.1 F 01/30/18 05:10 Pulse 71 01/30/18 08:53 Resp 18 01/30/18 05:10 BP 122/58 L 01/30/18 08:53 Pulse Ox 99 01/30/18 05:10 Weight - Most Recent: 193 lb I&O - Last 24 Hours: Intake & Output 01/29/18 01/30/18 01/30/18 22:59 06:59 14:59 Intake Total 940 400 Output Total 1200 Balance -260 400 Lab Results Last 24 Hours: Laboratory Results - last 24 hr 01/29/18 01/29/18 01/30/18 Range/Units 17:18 21:02 06:23 WBC (3.98-10.04) K/mm3 RBC (3.98-5.22) M/mm3 Hgb (11.2-15.7) gm/L Hct (34.1-44.9) % MCV (79.4-94.8) fl MCH (25.6-32.2) pg MCHC (32.2-35.5) g/dl RDW Std Deviation (36.4-46.3) fL Plt Count (182-369) K/mm3 MPV (9.4-12.3) fl Neut % (Auto) (34.0-71.1) % Lymph % (Auto) (19.3-51.7) % Creek % (Auto) (4.7-12.5) % Eos % (Auto) (0.7-5.8) Baso % (Auto) (0.1-1.2) % Neut # (Auto) (1.56-6.13) K/mm3 Lymph # (Auto) (1.18-3.74) K/mm3 Creek # (Auto) (0.24-0.36) K/mm3 Eos # (Auto) (0.04-0.36) K/mm3 Baso # (Auto) (0.01-0.08) K/mm3 Sodium (136-145) mEq/L Potassium (3.5-5.1) mEq/L Chloride (98-107) mEq/L Carbon Dioxide (21-32) mEq/L Anion Gap (5-15) BUN (7-18) mg/dL Creatinine (0.55-1.02) mg/dL Est Cr Clr Drug Dosing mL/min Estimated GFR (MDRD) (>60) mL/min BUN/Creatinine Ratio (14-18) Glucose (80-115) mg/dL POC Glucose 179 H 188 H 143 H (80-115) mg/dL Calcium (8.5-10.1) mg/dL Magnesium (1.8-2.4) mg/dl C-Reactive Protein (<1.0) mg/dL NT-Pro-B Natriuret Pep (0-125) pg/mL 01/30/18 01/30/18 01/30/18 Range/Units 06:50 06:50 06:50 WBC 6.80 (3.98-10.04) K/mm3 RBC 3.03 L (3.98-5.22) M/mm3 Hgb 9.8 L (11.2-15.7) gm/L Hct 30.7 L (34.1-44.9) % MCV 101.3 H (79.4-94.8) fl MCH 32.3 H (25.6-32.2) pg MCHC 31.9 L (32.2-35.5) g/dl RDW Std Deviation 59.5 H (36.4-46.3) fL Plt Count 279 (182-369) K/mm3 MPV 9.3 L (9.4-12.3) fl Neut % (Auto) 56.8 (34.0-71.1) % Lymph % (Auto) 27.4 (19.3-51.7) % Creek % (Auto) 9.7 (4.7-12.5) % Eos % (Auto) 5.1 (0.7-5.8) Baso % (Auto) 0.7 (0.1-1.2) % Neut # (Auto) 3.86 (1.56-6.13) K/mm3 Lymph # (Auto) 1.86 (1.18-3.74) K/mm3 Creek # (Auto) 0.66 H (0.24-0.36) K/mm3 Eos # (Auto) 0.35 (0.04-0.36) K/mm3 Baso # (Auto) 0.05 (0.01-0.08) K/mm3 Sodium 134 L (136-145) mEq/L Potassium 4.3 (3.5-5.1) mEq/L Chloride 101 (98-107) mEq/L Carbon Dioxide 25 (21-32) mEq/L Anion Gap 12.3 (5-15) BUN 27 H (7-18) mg/dL Creatinine 1.0 (0.55-1.02) mg/dL Est Cr Clr Drug Dosing 41.90 mL/min Estimated GFR (MDRD) 56 (>60) mL/min BUN/Creatinine Ratio 27.0 H (14-18) Glucose 144 H (80-115) mg/dL POC Glucose (80-115) mg/dL Calcium 8.7 (8.5-10.1) mg/dL Magnesium 1.9 (1.8-2.4) mg/dl C-Reactive Protein 0.5 (<1.0) mg/dL NT-Pro-B Natriuret Pep 533 H (0-125) pg/mL Med Orders - Current: Current Medications Acetaminophen (Tylenol) 650 mg PO Q6H PRN PRN Reason: Pain/Fever Last Admin: 01/20/18 08:27 Dose: 650 mg Hydrocodone Bitart/Acetaminophen (Byron 325-5 Mg) 1 - 2 tab PO Q4H PRN PRN Reason: Pain Last Admin: 01/30/18 08:49 Dose: 1 tab Albuterol (Proventil Neb Soln) 2.5 mg NEB Q2H PRN PRN Reason: Shortness Of Breath/wheezing Albuterol/Ipratropium (Duoneb 3.0-0.5 Mg/3 Ml) 3 ml NEB Q4H PRN PRN Reason: Shortness Of Breath/wheezing Artificial Tears (Isopto Tears 0.5% Ophth Soln) 0 ml EYEBOTH BID [facility] Last Admin: 01/30/18 08:49 Dose: 1 drop Bisacodyl (Dulcolax) 5 mg PO DAILY PRN PRN Reason: Constipation Last Admin: 01/22/18 09:35 Dose: 5 mg Clonidine HCl (Catapres) 0.3 mg PO BID [facility] Last Admin: 01/30/18 08:50 Dose: 0.3 mg Cyclobenzaprine HCl (Flexeril) 10 mg PO TID PRN PRN Reason: Muscle Spasm Last Admin: 01/23/18 09:43 Dose: 10 mg Dextrose/Water (Dextrose 50% In Water) 50 ml IVPUSH ASDIRECTED PRN PRN Reason: Hypoglycemia Diphenhydramine HCl (Benadryl) 25 mg IVPUSH Q6H PRN PRN Reason: Pruritis Last Admin: 01/20/18 23:35 Dose: 25 mg Docusate Sodium (Colace) 100 mg PO BID PRN PRN Reason: Constipation Docusate Sodium (Colace) 100 mg PO BID [facility] Last Admin: 01/30/18 08:53 Dose: 100 mg Enoxaparin Sodium (Lovenox) 40 mg SUBCUT DAILY [facility] Last Admin: 01/30/18 08:49 Dose: 40 mg Famotidine (Pepcid) 20 mg PO DAILY [facility] Last Admin: 01/30/18 08:53 Dose: 20 mg Furosemide (Lasix) 40 mg PO DAILY [facility] Last Admin: 01/30/18 08:54 Dose: 40 mg Hydralazine HCl (Apresoline) 20 mg IVPUSH Q6H PRN PRN Reason: Hypertension Last Admin: 01/23/18 02:14 Dose: 20 mg Hydromorphone HCl (Dilaudid) 0.5 mg IVPUSH Q4H PRN PRN Reason: Pain Last Admin: 01/22/18 22:28 Dose: 0.5 mg Insulin Aspart (Novolog) 0 unit SUBCUT QIDACANDBED [facility]; Protocol Last Admin: 01/30/18 06:32 Dose: Not Given Levothyroxine Sodium (Synthroid) 100 mcg PO DAILY@0600 [facility] Last Admin: 01/30/18 05:06 Dose: 100 mcg Losartan Potassium (Cozaar) 100 mg PO BEDTIME [facility] Last Admin: 01/29/18 20:55 Dose: 100 mg Magnesium Hydroxide (Milk Of Magnesia) 30 ml PO Q12H PRN PRN Reason: Constipation Last Admin: 01/22/18 18:14 Dose: 30 ml Memantine (Namenda) 5 mg PO DAILY [facility] Last Admin: 01/30/18 08:53 Dose: 5 mg Metformin HCl (Glucophage) 500 mg PO BIDMEALS [facility] Metoprolol Succinate (Toprol Xl) 25 mg PO DAILY [facility] Last Admin: 01/30/18 08:53 Dose: 25 mg Metoprolol Tartrate (Lopressor) 5 mg IVPUSH Q4H PRN PRN Reason: Hypertension Last Admin: 01/21/18 09:45 Dose: 5 mg Miscellaneous Information (Remove Patch) 1 ea TRDERM Q7D [facility] Naloxone HCl (Narcan) 0.1 mg IVPUSH Q5M PRN PRN Reason: Oversedation Ondansetron HCl (Zofran) 4 mg IVPUSH Q4H PRN PRN Reason: Nausea/Vomiting Last Admin: 01/20/18 23:35 Dose: 4 mg Imatinib Mesylate [ (Gleevec] 600 Mg) 0 each PO DAILY [facility] Last Admin: 01/30/18 08:54 Dose: 600 each Loxapine 50 Mg 0 each PO BEDTIME [facility] Last Admin: 01/29/18 20:56 Dose: 2 each Loxapine 25 Mg 0 each PO DAILY@1800 [facility] Last Admin: 01/29/18 18:17 Dose: 25 each Polyethylene Glycol (Miralax) 17 gm PO DAILY PRN PRN Reason: Constipation Senna/Docusate Sodium (Senna Plus) 1 tab PO BID PRN PRN Reason: Constipation Last Admin: 01/30/18 08:50 Dose: 1 tab Simvastatin (Zocor) 10 mg PO BEDTIME [facility] Last Admin: 01/29/18 20:56 Dose: 10 mg Sodium Chloride (Saline Flush) 10 ml FLUSH ONETIME PRN PRN Reason: IV FLUSH Last Admin: 01/21/18 18:06 Dose: 10 ml Spironolactone (Aldactone) 25 mg PO DAILY [facility] Last Admin: 01/30/18 08:54 Dose: 25 mg Temazepam (Restoril) 15 mg PO BEDTIME [facility] Last Admin: 01/29/18 20:54 Dose: 15 mg Tramadol HCl (Ultram) 50 mg PO Q8H [facility] Last Admin: 01/30/18 05:05 Dose: 50 mg Trazodone HCl (Trazodone) 100 mg PO BEDTIME [facility] Last Admin: 01/29/18 20:55 Dose: 100 mg Discontinued Medications Albuterol (Proventil Neb Soln) 2.5 mg NEB ONETIME ONE Stop: 01/20/18 13:58 Last Admin: 01/20/18 19:13 Dose: Not Given Artificial Tears (Isopto Tears 0.5% Ophth Soln) 0 ml EYEBOTH BID [facility] Last Admin: 01/19/18 15:00 Dose: Not Given Artificial Tears (Isopto Tears 0.5% Ophth Soln) 0 ml EYEBOTH BID [facility] Last Admin: 01/19/18 14:20 Dose: 1 drop Bisacodyl (Dulcolax) 10 mg RECTAL ONETIME ONE Stop: 01/23/18 06:12 Last Admin: 01/23/18 06:25 Dose: 10 mg Bupivacaine HCl (Sensorcaine-Mpf 0.75%) Confirm Administered Dose 30 ml .ROUTE .STK-MED ONE Stop: 01/20/18 11:45 Bupivacaine HCl (Marcaine 0.25%) Confirm Administered Dose 30 ml .ROUTE .STK- MED ONE Stop: 01/20/18 12:15 Last Admin: 01/20/18 13:48 Dose: 30 ml Cefazolin Sodium (Ancef) Confirm Administered Dose 2 gm .ROUTE .STK-MED ONE Stop: 01/20/18 11:46 Clonidine HCl (Catapres) 0.3 mg PO BID [facility] Clonidine HCl (Catapres) 0.1 mg PO ONETIME ONE Stop: 01/19/18 19:38 Last Admin: 01/19/18 19:59 Dose: 0.1 mg Clonidine HCl (Catapres) 0.1 mg PO Q8H [facility] Last Admin: 01/22/18 04:14 Dose: 0.1 mg Clonidine HCl (Catapres-Tts 3) 0.3 mg TRDERM Q7D ONE Stop: 01/27/18 22:01 Last Admin: 01/27/18 22:21 Dose: 0.3 mg Dextrose (Glutose 15) 15 gm PO ASDIRECTED PRN PRN Reason: LOW BS Famotidine (Pepcid) 20 mg PO BID [facility] Last Admin: 01/19/18 13:10 Dose: 20 mg Famotidine (Pepcid) 20 mg PO Q12H [facility] Last Admin: 01/20/18 17:13 Dose: Not Given Famotidine (Pepcid) 20 mg PO BID@0600,1800 [facility] Last Admin: 01/21/18 05:28 Dose: 20 mg Fentanyl (Sublimaze) Confirm Administered Dose 100 mcg .ROUTE .STK-MED ONE Stop: 01/20/18 11:46 Fentanyl (Sublimaze) 50 mcg IVPUSH Q5M PRN PRN Reason: Pain Furosemide (Lasix) 40 mg PO TID [facility] Last Admin: 01/19/18 14:19 Dose: 40 mg Furosemide (Lasix) 40 mg PO TID [facility] Furosemide (Lasix) 40 mg PO DAILY [facility] Furosemide (Lasix) 40 mg IVPUSH NOW ONE Stop: 01/20/18 05:01 Last Admin: 01/20/18 06:00 Dose: 40 mg Furosemide (Lasix) 40 mg IVPUSH ONETIME ONE Stop: 01/21/18 12:01 Last Admin: 01/21/18 13:27 Dose: 40 mg Hydromorphone HCl (Dilaudid) 1 mg IVPUSH ONETIME ONE Stop: 01/19/18 05:25 Last Admin: 01/19/18 05:48 Dose: 1 mg Hydromorphone HCl (Dilaudid) 0.5 mg IVPUSH ONETIME ONE Stop: 01/19/18 07:33 Last Admin: 01/19/18 07:53 Dose: 0.5 mg Hydromorphone HCl (Dilaudid) 0.5 mg IM ONETIME ONE Stop: 01/21/18 13:18 Last Admin: 01/21/18 13:15 Dose: Not Given Sodium Chloride (Normal Saline) 1,000 mls @ 250 mls/hr IV ASDIRECTED [facility] Last Admin: 01/19/18 05:47 Dose: 250 mls/hr Lactated Ringer's (Ringers, Lactated) 1,000 mls @ 125 mls/hr IV ASDIRECTED [facility] Last Infusion: 01/20/18 12:30 Dose: 0 mls/hr Vancomycin HCl 1 gm/ Sodium (Chloride) 250 mls @ 250 mls/hr IV ONETIME ONE Stop: 01/20/18 14:14 Last Admin: 01/20/18 19:13 Dose: Not Given Sodium Chloride (Normal Saline) Confirm Administered Dose 100 mls @ as directed .ROUTE .STK-MED ONE Stop: 01/20/18 14:00 Lactated Ringer's (Ringers, Lactated) Confirm Administered Dose 1,000 mls @ as directed .ROUTE .STK-MED ONE Stop: 01/20/18 14:49 Lactated Ringer's (Ringers, Lactated) Confirm Administered Dose 1,000 mls @ as directed .ROUTE .STK-MED ONE Stop: 01/20/18 14:49 Cefazolin Sodium/Dextrose 2 gm (/ Premix) 50 mls @ 100 mls/hr IV Q8H [facility] Stop: 01/21/18 12:29 Last Admin: 01/21/18 11:04 Dose: 100 mls/hr Sodium Chloride (Normal Saline) 500 mls @ 75 mls/hr IV ONETIME ONE Stop: 01/21/18 17:39 Last Admin: 01/21/18 11:44 Dose: 75 mls/hr Iopamidol (Isovue-300 (61%)) 100 ml IVPUSH ONETIME ONE Stop: 01/19/18 15:46 Last Admin: 01/19/18 15:49 Dose: 100 ml Ketamine HCl (Ketalar) Confirm Administered Dose 500 mg .ROUTE .STK-MED ONE Stop: 01/20/18 11:47 Ketorolac Tromethamine (Toradol) 15 mg IVPUSH Q6H [facility] Stop: 01/20/18 17:01 Last Admin: 01/20/18 18:02 Dose: 15 mg Levothyroxine Sodium (Synthroid) 100 mcg PO DAILY [facility] Last Admin: 01/22/18 09:41 Dose: Not Given Lidocaine HCl (Xylocaine-Mpf 1%) Confirm Administered Dose 5 ml .ROUTE .STK-MED ONE Stop: 01/20/18 12:33 Losartan Potassium (Cozaar) 100 mg PO DAILY [facility] Last Admin: 01/19/18 14:19 Dose: 100 mg Metoprolol Succinate (Toprol Xl) 25 mg PO DAILY [facility] Last Admin: 01/19/18 14:14 Dose: 25 mg Midazolam HCl (Versed 1 Mg/Ml) Confirm Administered Dose 2 mg .ROUTE .STK-MED ONE Stop: 01/20/18 11:46 Midazolam HCl (Versed 1 Mg/Ml) Confirm Administered Dose 2 mg .ROUTE .STK-MED ONE Stop: 01/20/18 13:28 Morphine Sulfate (Duramorph Pf) Confirm Administered Dose 1 mg .ROUTE .STK-MED ONE Stop: 01/20/18 12:28 Naloxone HCl (Narcan) 0.5 mg IVPUSH ONETIME ONE Stop: 01/19/18 17:04 Last Admin: 01/19/18 17:28 Dose: 0.5 mg Non-Formulary Medication (Acetaminophen) 650 mg PO Q8H PRN PRN Reason: Pain Ondansetron HCl (Zofran) 4 mg IVPUSH ONETIME ONE Stop: 01/19/18 05:25 Last Admin: 01/19/18 05:47 Dose: 4 mg Ondansetron HCl (Zofran) 4 mg IVPUSH ONETIME PRN PRN Reason: Nausea/Vomiting Ondansetron HCl (Zofran) Confirm Administered Dose 4 mg .ROUTE .STK-MED ONE Stop: 01/20/18 14:49 Pantoprazole Sodium (Protonix Iv) 40 mg IVPUSH DAILY [facility] Pantoprazole Sodium (Protonix Iv) 40 mg IVPUSH BID [facility] Last Admin: 01/20/18 09:37 Dose: 40 mg Loxapine 25 Mg 0 each PO DAILY@1400 [facility] Last Admin: 01/19/18 15:00 Dose: Not Given Phenylephrine HCl (Rodney-Synephrine) Confirm Administered Dose 10 mg .ROUTE .STK- MED ONE Stop: 01/20/18 14:00 Phenylephrine HCl (Phenylephrine In Ns 100 Mcg/Ml) Confirm Administered Dose 1 mg .ROUTE .STK-MED ONE Stop: 01/20/18 14:01 Propofol (Diprivan 20 Ml) Confirm Administered Dose 600 mg .ROUTE .STK-MED ONE Stop: 01/20/18 11:46 Temazepam (Restoril) 30 mg PO BEDTIME [facility] Temazepam (Restoril) 7.5 mg PO BEDTIME [facility] Last Admin: 01/24/18 21:26 Dose: 7.5 mg Temazepam (Restoril) 7.5 mg PO ONETIME ONE Stop: 01/24/18 22:03 Last Admin: 01/24/18 22:40 Dose: 7.5 mg - Exam Quality Assessment: DVT Prophylaxis General: Alert, Oriented, Cooperative, No Acute Distress HEENT: Pupils Equal, Pupils Reactive, EOMI, Mucous Membr. Moist/[place] Neck: Supple, Trachea Midline, No JVD Lungs: Clear to Auscultation, Normal Respiratory Effort Cardiovascular: Regular Rate, Regular Rhythm GI/Abdominal Exam: Normal Bowel Sounds, Soft, Non-Tender, No Organomegaly, No Distention, No Abnormal Bruit, No Mass, Pelvis Stable (Female) Exam: Deferred Back Exam: Normal Inspection, Decreased Range of Motion Extremities: Normal Inspection, Non-Tender, No Pedal Edema, Normal Capillary Refill, Limited Range of Motion Peripheral Pulses: 2+: Radial (L), Radial (R), Posterior Tibial (L), Posterior Tibial (R), Dorsalis Pedis (L), Dorsalis Pedis (R) Skin: Warm, Dry, Intact Wound/Incisions: Dressing Dry and Intact, No Drainage Neurological: No New Focal Deficit Psy/Mental Status: Alert, Normal Affect, Normal Mood - Problem List & Annotations (1) Fracture of proximal end of femur SNOMED Code(s): 559065548 Code(s): S72.009A - FRACTURE OF UNSP PART OF NECK OF UNSP FEMUR, INIT Status: Acute Priority: High Current Visit: Yes Qualifiers: Encounter type: initial encounter Fracture type: closed Laterality: left Qualified Code(s): S72.002A - Fracture of unspecified part of neck of left femur, initial encounter for closed fracture (2) Anemia SNOMED Code(s): 901443367 Code(s): D64.9 - ANEMIA, UNSPECIFIED Status: Chronic Priority: Medium Current Visit: Yes Qualifiers: 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 type: pancytopenia, antineoplastic chemotherapy-induced Qualified Code(s): D61.810 - Antineoplastic chemotherapy induced pancytopenia; T45.1X5A - Adverse effect of antineoplastic and immunosuppressive drugs, initial encounter (3) Congestive heart failure SNOMED Code(s): 46694099 Code(s): I50.9 - HEART FAILURE, UNSPECIFIED Status: Chronic Priority: Medium Current Visit: Yes Qualifiers: Heart failure type: diastolic Heart failure chronicity: chronic Qualified Code(s): I50.32 - Chronic diastolic (congestive) heart failure (4) Hyponatremia SNOMED Code(s): 76752693 Code(s): E87.1 - HYPO-OSMOLALITY AND HYPONATREMIA Status: Chronic Priority: Medium Current Visit: Yes (5) Renal insufficiency SNOMED Code(s): 396245214, 911569400 Code(s): N28.9 - DISORDER OF KIDNEY AND URETER, UNSPECIFIED Status: Chronic Priority: High Current Visit: Yes (6) Traumatic brain injury SNOMED Code(s): 410861941 Code(s): S06.9X9A - UNSP INTRACRANIAL INJURY W LOC OF UNSP DURATION, INIT Status: Chronic Priority: Low Current Visit: Yes Qualifiers: Encounter type: subsequent encounter Loss of consciousness presence/ duration: with LOC of unspecified duration Qualified Code(s): S06.9X9D - Unspecified intracranial injury with loss of consciousness of unspecified duration, subsequent encounter (7) Type 2 diabetes mellitus SNOMED Code(s): 27030881 Code(s): E11.9 - TYPE 2 DIABETES MELLITUS WITHOUT COMPLICATIONS Status: Chronic Priority: Medium Current Visit: Yes Qualifiers: Diabetes mellitus long term care social worker insulin use: unspecified residential insulin use status Diabetes mellitus complication status: with unspecified complications Qualified Code(s): E11.8 - Type 2 diabetes mellitus with unspecified complications (8) Constipation SNOMED Code(s): 66312923 Code(s): K59.00 - CONSTIPATION, UNSPECIFIED Status: Acute Priority: Medium Current Visit: Yes Qualifiers: Constipation type: unspecified constipation type Qualified Code(s): K59.00 - Constipation, unspecified (9) Fall SNOMED Code(s): 5927245, 561399190 Code(s): W19.XXXA - UNSPECIFIED FALL, INITIAL ENCOUNTER Status: Acute Priority: High Current Visit: No Qualifiers: Encounter type: initial encounter Qualified Code(s): W19.XXXA - Unspecified fall, initial encounter (10) Hypertension SNOMED Code(s): 88146292 Code(s): I10 - ESSENTIAL (PRIMARY) HYPERTENSION Status: Acute Priority: High Current Visit: Yes Qualifiers: Hypertension type: essential hypertension Qualified Code(s): I10 - Essential (primary) hypertension - Problem List Review Problem List Initiated/Reviewed/Updated: Yes - My Orders Last 24 Hours: My Active Orders 01/31/18 05:11 BASIC METABOLIC PANEL,BMP [CHEM] AM CBC WITH AUTO DIFF [HEME] AM CRP [C-REACTIVE PROTEIN] [CHEM] AM MAGNESIUM [CHEM] AM 02/01/18 05:11 BASIC METABOLIC PANEL,BMP [CHEM] AM CBC WITH AUTO DIFF [HEME] AM CRP [C-REACTIVE PROTEIN] [CHEM] AM MAGNESIUM [CHEM] AM 02/02/18 05:11 BASIC METABOLIC PANEL,BMP [CHEM] AM CBC WITH AUTO DIFF [HEME] AM CRP [C-REACTIVE PROTEIN] [CHEM] AM MAGNESIUM [CHEM] AM - Plan Plan:: I/P: Acute: Fracture of proximal end of femur, s/p fall ; POD 11: IM paul placement for left femoral shaft fracture, Stable -Pain controlled -Stable condition -Pain medication PRN -Bedrest, PT/OT after surgery--> walking now with PT/OT -Continue supportive care -CRP 2.2-->4.8-->4.9-->3.6-->2.5--> 1.6-->0.5 HTN -Stable -Continue current BP regimen -PRN BP meds as needed Hyponatremia -Na 130--> 132 -->130-->133-->134--> 136-->134 -Monitor Resolved: S/p Hyperemesis--resolved -Risk factor: chemotherapy -Zofran Q4H -IV lactated ringers Chronic: Anemia, Thrombocytopenia- improving -RBC 2.96-->2.74-->2.95-->3.03, Hgb 9.4-->8.9-->9.4,-->9.8 HCT 28.7-->26.8--> 29.3, -->30.7, RDW 51.8-->52.4-->53.8-->59.5 -Plt 173-->180-->208-->279 -Monitor -Blood Type and Screen ordered -Replenish with PRBCs as needed CKD stage III, improving -eGFR 47-->50-->46-->42-->56 -Creatinine 1.7-->1.1-->1.2-->1.3-->1.0 -NS IV started in ED--> D/C and start LR IV--> D/C -Defer to PCP for f/u Diabetes Type II -Blood Glucose Checks QID -Continue at home Metformin 500mg -Sliding scale Insulin -A1C 5.0 -ADA diet after surgery -Defer to PCP for f/u CHF, improving -BNP 236-->1891-->1366-->2548-->2782-->1166-->722-->647-->533 -Continue at home Lasix 40mg TID -Monitor Traumatic Brain Injury Leukemia --> Continue at home Gleevec 600mg here Plan: She remains clinically stable and has been ambulating well with PT/OT Routine AM labs Continue PT/OT Ortho following CM/SW for discharge planning DVT Prophylaxis: SCD/Lovenox SubQ Ready to D/C pending SNF placement for rehabilitation--> Gleevec is causing issues with placement Code Status: Full code (CPR, Defib, Intubation)- However "No life sustaining treatment on machines" -per Sister Beti, Power of Taxi Cab Driver PCP: Dr. Cespedes LOS > 96hrs due to difficulty with SNF rehabilitation placement
[2018-01-30] MEDS: LOXAPINE 25 MG PO SCH (17:36)
[2018-01-30] MEDS: Simvastatin 10 MG Tab PO SCH (21:55)
[2018-01-30] MEDS: traZODone 50 MG Tab PO SCH (21:59)
[2018-01-30] MEDS: Temazepam 15 MG Cap PO SCH (21:59)
[2018-01-30] MEDS: Losartan 100 MG Tab PO SCH (21:59)
[2018-01-31] MEDS: traMADol 50 MG Tab PO SCH ×3 (04:01→18:11)
[2018-01-31] MEDS: Magnesium Hydroxide 400 MG/5 ML Susp 30 ML Cup PO PRN (04:01)
[2018-01-31] MEDS: Levothyroxine 100 MCG Tab PO SCH (06:13)
--- NOTE | 2018-01-31 06:45 | PCM.PN ---
- General Info Date of Service: 01/31/18 Admission Dx/Problem (Free Text): Admission Diagnosis/Problem Admission Diagnosis/Problem Fall at home Subjective Update: Follow Up Functional Status: Reports: Pain Controlled, Tolerating Diet, Ambulating, Urinating - Review of Systems General: Denies: Fever, Weakness, Fatigue, Malaise, Chills HEENT: Reports: No Symptoms Pulmonary: Denies: Shortness of Breath Cardiovascular: Denies: Chest Pain Gastrointestinal: Denies: Abdominal Pain, Nausea, Vomiting Genitourinary: Reports: No Symptoms Musculoskeletal: Reports: No Symptoms Skin: Denies: Cyanosis, Jaundice, Mottled, Pallor, Diaphoresis, Rash Neurological: Reports: Difficulty Walking, Gait Disturbance. Denies: Confusion , Weakness Psychiatric: Denies: Depression, Anxiety, Agitation, Hallucinations Systems Review Comment:: No overnight or acute issues. She is doing relatively fine. Pain is controlled and she has no new complaints. However she wants to know if Medicare/Medicaid will pay for a wheelchair. Her vitals remains stable. - Patient Data Vitals - Most Recent: Last Vital Signs Temp 36.6 C 01/31/18 03:53 Pulse 71 01/31/18 03:53 Resp 18 01/31/18 03:53 BP 129/95 H 01/31/18 03:53 Pulse Ox 99 01/31/18 03:53 Weight - Most Recent: 84.776 kg I&O - Last 24 Hours: Intake & Output 01/30/18 01/30/18 01/31/18 14:59 22:59 06:59 Intake Total 540 1160 200 Output Total 1400 700 Balance 540 -240 -500 Lab Results Last 24 Hours: Laboratory Results - last 24 hr 01/30/18 01/30/18 01/30/18 Range/Units 06:50 06:50 06:50 WBC 6.80 (3.98-10.04) K/mm3 RBC 3.03 L (3.98-5.22) M/mm3 Hgb 9.8 L (11.2-15.7) gm/L Hct 30.7 L (34.1-44.9) % MCV 101.3 H (79.4-94.8) fl MCH 32.3 H (25.6-32.2) pg MCHC 31.9 L (32.2-35.5) g/dl RDW Std Deviation 59.5 H (36.4-46.3) fL Plt Count 279 (182-369) K/mm3 MPV 9.3 L (9.4-12.3) fl Neut % (Auto) 56.8 (34.0-71.1) % Lymph % (Auto) 27.4 (19.3-51.7) % George % (Auto) 9.7 (4.7-12.5) % Eos % (Auto) 5.1 (0.7-5.8) Baso % (Auto) 0.7 (0.1-1.2) % Neut # (Auto) 3.86 (1.56-6.13) K/mm3 Lymph # (Auto) 1.86 (1.18-3.74) K/mm3 George # (Auto) 0.66 H (0.24-0.36) K/mm3 Eos # (Auto) 0.35 (0.04-0.36) K/mm3 Baso # (Auto) 0.05 (0.01-0.08) K/mm3 Sodium 134 L (136-145) mEq/L Potassium 4.3 (3.5-5.1) mEq/L Chloride 101 (98-107) mEq/L Carbon Dioxide 25 (21-32) mEq/L Anion Gap 12.3 (5-15) BUN 27 H (7-18) mg/dL Creatinine 1.0 (0.55-1.02) mg/dL Est Cr Clr Drug Dosing 41.90 mL/min Estimated GFR (MDRD) 56 (>60) mL/min BUN/Creatinine Ratio 27.0 H (14-18) Glucose 144 H (80-115) mg/dL POC Glucose (80-115) mg/dL Calcium 8.7 (8.5-10.1) mg/dL Magnesium 1.9 (1.8-2.4) mg/dl C-Reactive Protein 0.5 (<1.0) mg/dL NT-Pro-B Natriuret Pep 533 H (0-125) pg/mL 01/30/18 01/30/18 01/30/18 Range/Units 11:01 17:34 22:02 WBC (3.98-10.04) K/mm3 RBC (3.98-5.22) M/mm3 Hgb (11.2-15.7) gm/L Hct (34.1-44.9) % MCV (79.4-94.8) fl MCH (25.6-32.2) pg MCHC (32.2-35.5) g/dl RDW Std Deviation (36.4-46.3) fL Plt Count (182-369) K/mm3 MPV (9.4-12.3) fl Neut % (Auto) (34.0-71.1) % Lymph % (Auto) (19.3-51.7) % George % (Auto) (4.7-12.5) % Eos % (Auto) (0.7-5.8) Baso % (Auto) (0.1-1.2) % Neut # (Auto) (1.56-6.13) K/mm3 Lymph # (Auto) (1.18-3.74) K/mm3 George # (Auto) (0.24-0.36) K/mm3 Eos # (Auto) (0.04-0.36) K/mm3 Baso # (Auto) (0.01-0.08) K/mm3 Sodium (136-145) mEq/L Potassium (3.5-5.1) mEq/L Chloride (98-107) mEq/L Carbon Dioxide (21-32) mEq/L Anion Gap (5-15) BUN (7-18) mg/dL Creatinine (0.55-1.02) mg/dL Est Cr Clr Drug Dosing mL/min Estimated GFR (MDRD) (>60) mL/min BUN/Creatinine Ratio (14-18) Glucose (80-115) mg/dL POC Glucose 110 114 190 H (80-115) mg/dL Calcium (8.5-10.1) mg/dL Magnesium (1.8-2.4) mg/dl C-Reactive Protein (<1.0) mg/dL NT-Pro-B Natriuret Pep (0-125) pg/mL 01/31/18 01/31/18 Range/Units 05:45 06:16 WBC 6.59 (3.98-10.04) K/mm3 RBC 2.87 L (3.98-5.22) M/mm3 Hgb 9.4 L (11.2-15.7) gm/L Hct 29.2 L (34.1-44.9) % MCV 101.7 H (79.4-94.8) fl MCH 32.8 H (25.6-32.2) pg MCHC 32.2 (32.2-35.5) g/dl RDW Std Deviation 61.0 H (36.4-46.3) fL Plt Count 287 (182-369) K/mm3 MPV 9.4 (9.4-12.3) fl Neut % (Auto) 59.1 (34.0-71.1) % Lymph % (Auto) 24.6 (19.3-51.7) % George % (Auto) 9.6 (4.7-12.5) % Eos % (Auto) 5.9 H (0.7-5.8) Baso % (Auto) 0.6 (0.1-1.2) % Neut # (Auto) 3.90 (1.56-6.13) K/mm3 Lymph # (Auto) 1.62 (1.18-3.74) K/mm3 George # (Auto) 0.63 H (0.24-0.36) K/mm3 Eos # (Auto) 0.39 H (0.04-0.36) K/mm3 Baso # (Auto) 0.04 (0.01-0.08) K/mm3 Sodium (136-145) mEq/L Potassium (3.5-5.1) mEq/L Chloride (98-107) mEq/L Carbon Dioxide (21-32) mEq/L Anion Gap (5-15) BUN (7-18) mg/dL Creatinine (0.55-1.02) mg/dL Est Cr Clr Drug Dosing mL/min Estimated GFR (MDRD) (>60) mL/min BUN/Creatinine Ratio (14-18) Glucose (80-115) mg/dL POC Glucose 161 H (80-115) mg/dL Calcium (8.5-10.1) mg/dL Magnesium (1.8-2.4) mg/dl C-Reactive Protein (<1.0) mg/dL NT-Pro-B Natriuret Pep (0-125) pg/mL Med Orders - Current: Current Medications Acetaminophen (Tylenol) 650 mg PO Q6H PRN PRN Reason: Pain/Fever Last Admin: 01/20/18 08:27 Dose: 650 mg Hydrocodone Bitart/Acetaminophen ([place] 325-5 Mg) 1 - 2 tab PO Q4H PRN PRN Reason: Pain Last Admin: 01/30/18 21:59 Dose: 2 tab Albuterol (Proventil Neb Soln) 2.5 mg NEB Q2H PRN PRN Reason: Shortness Of Breath/wheezing Albuterol/Ipratropium (Duoneb 3.0-0.5 Mg/3 Ml) 3 ml NEB Q4H PRN PRN Reason: Shortness Of Breath/wheezing Artificial Tears (Isopto Tears 0.5% Ophth Soln) 0 ml EYEBOTH BID [facility] Last Admin: 01/30/18 21:54 Dose: 1 drop Bisacodyl (Dulcolax) 5 mg PO DAILY PRN PRN Reason: Constipation Last Admin: 01/22/18 09:35 Dose: 5 mg Clonidine HCl (Catapres) 0.3 mg PO BID [facility] Last Admin: 01/30/18 21:55 Dose: 0.3 mg Cyclobenzaprine HCl (Flexeril) 10 mg PO TID PRN PRN Reason: Muscle Spasm Last Admin: 01/23/18 09:43 Dose: 10 mg Dextrose/Water (Dextrose 50% In Water) 50 ml IVPUSH ASDIRECTED PRN PRN Reason: Hypoglycemia Diphenhydramine HCl (Benadryl) 25 mg IVPUSH Q6H PRN PRN Reason: Pruritis Last Admin: 01/20/18 23:35 Dose: 25 mg Docusate Sodium (Colace) 100 mg PO BID PRN PRN Reason: Constipation Docusate Sodium (Colace) 100 mg PO BID [facility] Last Admin: 01/30/18 21:55 Dose: 100 mg Enoxaparin Sodium (Lovenox) 40 mg SUBCUT DAILY [facility] Last Admin: 01/30/18 08:49 Dose: 40 mg Famotidine (Pepcid) 20 mg PO DAILY [facility] Last Admin: 01/30/18 08:53 Dose: 20 mg Furosemide (Lasix) 40 mg PO DAILY [facility] Last Admin: 01/30/18 08:54 Dose: 40 mg Hydralazine HCl (Apresoline) 20 mg IVPUSH Q6H PRN PRN Reason: Hypertension Last Admin: 01/23/18 02:14 Dose: 20 mg Hydromorphone HCl (Dilaudid) 0.5 mg IVPUSH Q4H PRN PRN Reason: Pain Last Admin: 01/22/18 22:28 Dose: 0.5 mg Insulin Aspart (Novolog) 0 unit SUBCUT QIDACANDBED [facility]; Protocol Last Admin: 01/30/18 22:03 Dose: 1 unit Levothyroxine Sodium (Synthroid) 100 mcg PO DAILY@0600 [facility] Last Admin: 01/31/18 06:13 Dose: 100 mcg Losartan Potassium (Cozaar) 100 mg PO BEDTIME [facility] Last Admin: 01/30/18 21:59 Dose: 100 mg Magnesium Hydroxide (Milk Of Magnesia) 30 ml PO Q12H PRN PRN Reason: Constipation Last Admin: 01/31/18 04:01 Dose: 30 ml Memantine (Namenda) 5 mg PO DAILY [facility] Last Admin: 01/30/18 08:53 Dose: 5 mg Metformin HCl (Glucophage) 500 mg PO BIDMEALS [facility] Metoprolol Succinate (Toprol Xl) 25 mg PO DAILY [facility] Last Admin: 01/30/18 08:53 Dose: 25 mg Metoprolol Tartrate (Lopressor) 5 mg IVPUSH Q4H PRN PRN Reason: Hypertension Last Admin: 01/21/18 09:45 Dose: 5 mg Miscellaneous Information (Remove Patch) 1 ea TRDERM Q7D [facility] Naloxone HCl (Narcan) 0.1 mg IVPUSH Q5M PRN PRN Reason: Oversedation Ondansetron HCl (Zofran) 4 mg IVPUSH Q4H PRN PRN Reason: Nausea/Vomiting Last Admin: 01/20/18 23:35 Dose: 4 mg Imatinib Mesylate [ (Gleevec] 600 Mg) 0 each PO DAILY [facility] Last Admin: 01/30/18 08:54 Dose: 600 each Loxapine 50 Mg 0 each PO BEDTIME [facility] Last Admin: 01/30/18 21:59 Dose: 1 each Loxapine 25 Mg 0 each PO DAILY@1800 [facility] Last Admin: 01/30/18 17:36 Dose: 1 each Polyethylene Glycol (Miralax) 17 gm PO DAILY PRN PRN Reason: Constipation Senna/Docusate Sodium (Senna Plus) 1 tab PO BID PRN PRN Reason: Constipation Last Admin: 01/30/18 08:50 Dose: 1 tab Simvastatin (Zocor) 10 mg PO BEDTIME [facility] Last Admin: 01/30/18 21:55 Dose: 10 mg Sodium Chloride (Saline Flush) 10 ml FLUSH ONETIME PRN PRN Reason: IV FLUSH Last Admin: 01/21/18 18:06 Dose: 10 ml Spironolactone (Aldactone) 25 mg PO DAILY [facility] Last Admin: 01/30/18 08:54 Dose: 25 mg Temazepam (Restoril) 15 mg PO BEDTIME [facility] Last Admin: 01/30/18 21:59 Dose: 15 mg Tramadol HCl (Ultram) 50 mg PO Q8H [facility] Last Admin: 01/31/18 04:01 Dose: 50 mg Trazodone HCl (Trazodone) 100 mg PO BEDTIME [facility] Last Admin: 01/30/18 21:59 Dose: 100 mg Discontinued Medications Albuterol (Proventil Neb Soln) 2.5 mg NEB ONETIME ONE Stop: 01/20/18 13:58 Last Admin: 01/20/18 19:13 Dose: Not Given Artificial Tears (Isopto Tears 0.5% Ophth Soln) 0 ml EYEBOTH BID [facility] Last Admin: 01/19/18 15:00 Dose: Not Given Artificial Tears (Isopto Tears 0.5% Ophth Soln) 0 ml EYEBOTH BID [facility] Last Admin: 01/19/18 14:20 Dose: 1 drop Bisacodyl (Dulcolax) 10 mg RECTAL ONETIME ONE Stop: 01/23/18 06:12 Last Admin: 01/23/18 06:25 Dose: 10 mg Bupivacaine HCl (Sensorcaine-Mpf 0.75%) Confirm Administered Dose 30 ml .ROUTE .STK-MED ONE Stop: 01/20/18 11:45 Bupivacaine HCl (Marcaine 0.25%) Confirm Administered Dose 30 ml .ROUTE .STK- MED ONE Stop: 01/20/18 12:15 Last Admin: 01/20/18 13:48 Dose: 30 ml Cefazolin Sodium (Ancef) Confirm Administered Dose 2 gm .ROUTE .STK-MED ONE Stop: 01/20/18 11:46 Clonidine HCl (Catapres) 0.3 mg PO BID [facility] Clonidine HCl (Catapres) 0.1 mg PO ONETIME ONE Stop: 01/19/18 19:38 Last Admin: 01/19/18 19:59 Dose: 0.1 mg Clonidine HCl (Catapres) 0.1 mg PO Q8H [facility] Last Admin: 01/22/18 04:14 Dose: 0.1 mg Clonidine HCl (Catapres-Tts 3) 0.3 mg TRDERM Q7D ONE Stop: 01/27/18 22:01 Last Admin: 01/27/18 22:21 Dose: 0.3 mg Dextrose (Glutose 15) 15 gm PO ASDIRECTED PRN PRN Reason: LOW BS Famotidine (Pepcid) 20 mg PO BID [facility] Last Admin: 01/19/18 13:10 Dose: 20 mg Famotidine (Pepcid) 20 mg PO Q12H [facility] Last Admin: 01/20/18 17:13 Dose: Not Given Famotidine (Pepcid) 20 mg PO BID@0600,1800 [facility] Last Admin: 01/21/18 05:28 Dose: 20 mg Fentanyl (Sublimaze) Confirm Administered Dose 100 mcg .ROUTE .STK-MED ONE Stop: 01/20/18 11:46 Fentanyl (Sublimaze) 50 mcg IVPUSH Q5M PRN PRN Reason: Pain Furosemide (Lasix) 40 mg PO TID [facility] Last Admin: 01/19/18 14:19 Dose: 40 mg Furosemide (Lasix) 40 mg PO TID [facility] Furosemide (Lasix) 40 mg PO DAILY [facility] Furosemide (Lasix) 40 mg IVPUSH NOW ONE Stop: 01/20/18 05:01 Last Admin: 01/20/18 06:00 Dose: 40 mg Furosemide (Lasix) 40 mg IVPUSH ONETIME ONE Stop: 01/21/18 12:01 Last Admin: 01/21/18 13:27 Dose: 40 mg Hydromorphone HCl (Dilaudid) 1 mg IVPUSH ONETIME ONE Stop: 01/19/18 05:25 Last Admin: 01/19/18 05:48 Dose: 1 mg Hydromorphone HCl (Dilaudid) 0.5 mg IVPUSH ONETIME ONE Stop: 01/19/18 07:33 Last Admin: 01/19/18 07:53 Dose: 0.5 mg Hydromorphone HCl (Dilaudid) 0.5 mg IM ONETIME ONE Stop: 01/21/18 13:18 Last Admin: 01/21/18 13:15 Dose: Not Given Sodium Chloride (Normal Saline) 1,000 mls @ 250 mls/hr IV ASDIRECTED [facility] Last Admin: 01/19/18 05:47 Dose: 250 mls/hr Lactated Ringer's (Ringers, Lactated) 1,000 mls @ 125 mls/hr IV ASDIRECTED [facility] Last Infusion: 01/20/18 12:30 Dose: 0 mls/hr Vancomycin HCl 1 gm/ Sodium (Chloride) 250 mls @ 250 mls/hr IV ONETIME ONE Stop: 01/20/18 14:14 Last Admin: 01/20/18 19:13 Dose: Not Given Sodium Chloride (Normal Saline) Confirm Administered Dose 100 mls @ as directed .ROUTE .STK-MED ONE Stop: 01/20/18 14:00 Lactated Ringer's (Ringers, Lactated) Confirm Administered Dose 1,000 mls @ as directed .ROUTE .STK-MED ONE Stop: 01/20/18 14:49 Lactated Ringer's (Ringers, Lactated) Confirm Administered Dose 1,000 mls @ as directed .ROUTE .STK-MED ONE Stop: 01/20/18 14:49 Cefazolin Sodium/Dextrose 2 gm (/ Premix) 50 mls @ 100 mls/hr IV Q8H [facility] Stop: 01/21/18 12:29 Last Admin: 01/21/18 11:04 Dose: 100 mls/hr Sodium Chloride (Normal Saline) 500 mls @ 75 mls/hr IV ONETIME ONE Stop: 01/21/18 17:39 Last Admin: 01/21/18 11:44 Dose: 75 mls/hr Iopamidol (Isovue-300 (61%)) 100 ml IVPUSH ONETIME ONE Stop: 01/19/18 15:46 Last Admin: 01/19/18 15:49 Dose: 100 ml Ketamine HCl (Ketalar) Confirm Administered Dose 500 mg .ROUTE .STK-MED ONE Stop: 01/20/18 11:47 Ketorolac Tromethamine (Toradol) 15 mg IVPUSH Q6H [facility] Stop: 01/20/18 17:01 Last Admin: 01/20/18 18:02 Dose: 15 mg Levothyroxine Sodium (Synthroid) 100 mcg PO DAILY [facility] Last Admin: 01/22/18 09:41 Dose: Not Given Lidocaine HCl (Xylocaine-Mpf 1%) Confirm Administered Dose 5 ml .ROUTE .STK-MED ONE Stop: 01/20/18 12:33 Losartan Potassium (Cozaar) 100 mg PO DAILY [facility] Last Admin: 01/19/18 14:19 Dose: 100 mg Metoprolol Succinate (Toprol Xl) 25 mg PO DAILY [facility] Last Admin: 01/19/18 14:14 Dose: 25 mg Midazolam HCl (Versed 1 Mg/Ml) Confirm Administered Dose 2 mg .ROUTE .STK-MED ONE Stop: 01/20/18 11:46 Midazolam HCl (Versed 1 Mg/Ml) Confirm Administered Dose 2 mg .ROUTE .STK-MED ONE Stop: 01/20/18 13:28 Morphine Sulfate (Duramorph Pf) Confirm Administered Dose 1 mg .ROUTE .STK-MED ONE Stop: 01/20/18 12:28 Naloxone HCl (Narcan) 0.5 mg IVPUSH ONETIME ONE Stop: 01/19/18 17:04 Last Admin: 01/19/18 17:28 Dose: 0.5 mg Non-Formulary Medication (Acetaminophen) 650 mg PO Q8H PRN PRN Reason: Pain Ondansetron HCl (Zofran) 4 mg IVPUSH ONETIME ONE Stop: 01/19/18 05:25 Last Admin: 01/19/18 05:47 Dose: 4 mg Ondansetron HCl (Zofran) 4 mg IVPUSH ONETIME PRN PRN Reason: Nausea/Vomiting Ondansetron HCl (Zofran) Confirm Administered Dose 4 mg .ROUTE .STK-MED ONE Stop: 01/20/18 14:49 Pantoprazole Sodium (Protonix Iv) 40 mg IVPUSH DAILY [facility] Pantoprazole Sodium (Protonix Iv) 40 mg IVPUSH BID [facility] Last Admin: 01/20/18 09:37 Dose: 40 mg Loxapine 25 Mg 0 each PO DAILY@1400 [facility] Last Admin: 01/19/18 15:00 Dose: Not Given Phenylephrine HCl (Rodney-Synephrine) Confirm Administered Dose 10 mg .ROUTE .STK- MED ONE Stop: 01/20/18 14:00 Phenylephrine HCl (Phenylephrine In Ns 100 Mcg/Ml) Confirm Administered Dose 1 mg .ROUTE .STK-MED ONE Stop: 01/20/18 14:01 Propofol (Diprivan 20 Ml) Confirm Administered Dose 600 mg .ROUTE .STK-MED ONE Stop: 01/20/18 11:46 Temazepam (Restoril) 30 mg PO BEDTIME [facility] Temazepam (Restoril) 7.5 mg PO BEDTIME [facility] Last Admin: 01/24/18 21:26 Dose: 7.5 mg Temazepam (Restoril) 7.5 mg PO ONETIME ONE Stop: 01/24/18 22:03 Last Admin: 01/24/18 22:40 Dose: 7.5 mg - Exam General: Alert, Oriented, Cooperative, No Acute Distress HEENT: Pupils Equal, Pupils Reactive, EOMI, Mucous Membr. Moist/[place] Neck: Supple, Trachea Midline, No JVD, No Thyromegaly Lungs: Clear to Auscultation, Normal Respiratory Effort Cardiovascular: Regular Rate, Regular Rhythm GI/Abdominal Exam: Normal Bowel Sounds, Soft, Non-Tender, No Organomegaly, No Distention, No Abnormal Bruit, No Mass (Female) Exam: Deferred Back Exam: Normal Inspection, Decreased Range of Motion Extremities: Normal Inspection, Normal Range of Motion, Non-Tender, No Pedal Edema, Normal Capillary Refill Peripheral Pulses: 2+: Dorsalis Pedis (L), Dorsalis Pedis (R) Skin: Warm, Dry, Intact Neurological: No New Focal Deficit Psy/Mental Status: Alert, Normal Affect, Normal Mood - Problem List Review Problem List Initiated/Reviewed/Updated: Yes - My Orders Last 24 Hours: My Active Orders 01/30/18 08:12 Communication Order [RC] ROUTINE - Plan Plan:: I/P: Acute: Fracture of proximal end of femur, s/p fall ; POD 12: IM paul placement for left femoral shaft fracture, Stable -Pain controlled -Stable condition -Pain medication PRN -Bedrest, PT/OT after surgery--> walking now with PT/OT -Continue supportive care HTN -Stable -Continue current BP regimen -PRN BP meds as needed Hyponatremia -Na 130--> 132 -->130-->133-->134--> 136-->134--> 133 -Monitor Resolved: S/p Hyperemesis--resolved -Risk factor: chemotherapy -Zofran Q4H -IV lactated ringers Chronic: Anemia, Thrombocytopenia- improving -RBC 2.96-->2.74-->2.95-->3.03, Hgb 9.4-->8.9-->9.4,-->9.8 HCT 28.7-->26.8--> 29.3, -->30.7, RDW 51.8-->52.4-->53.8-->59.5 -Plt 173-->180-->208-->279 -Monitor -Blood Type and Screen ordered -Replenish with PRBCs as needed CKD stage III, improving -eGFR 47-->50-->46-->42-->56 -Creatinine 1.7-->1.1-->1.2-->1.3-->1.0 -NS IV started in ED--> D/C and start LR IV--> D/C -Defer to PCP for f/u Diabetes Type II -Blood Glucose Checks QID -Continue at home Metformin 500mg -Sliding scale Insulin -A1C 5.0 -ADA diet after surgery -Defer to PCP for f/u CHF, improving -BNP 236-->1891-->1366-->2548-->2782-->1166-->722-->647-->533 -Continue at home Lasix 40mg TID -Monitor Traumatic Brain Injury Leukemia --> Continue at home Gleevec 600mg here Plan: She remains clinically stable and has been ambulating well with PT/OT Routine AM labs Continue PT/OT Ortho following CM/SW for discharge planning DVT Prophylaxis: SCD/Lovenox SubQ Ready to D/C pending SNF placement for rehabilitation--> Gleevec is causing issues with placement Code Status: Full code (CPR, Defib, Intubation)- However "No life sustaining treatment on machines" -per Sister Beti, Power of Veterans Adviser PCP: Dr. Cespedes Placement still pending
[2018-01-31] MEDS: Insulin Aspart 100 Units/ML 3 ML Pen SUBCUT SCH ×4 (08:30→22:15)
[2018-01-31] MEDS: Memantine 10 MG Tab PO SCH (10:30)
[2018-01-31] MEDS: Furosemide 40 MG Tab PO SCH (10:31)
[2018-01-31] MEDS: Famotidine 20 MG Tab PO SCH (10:31)
[2018-01-31] MEDS: cloNIDine 0.1 MG Tab PO SCH ×2 (10:31→21:21)
[2018-01-31] MEDS: Metoprolol Succinate 25 MG Tab.ER PO SCH (10:35)
[2018-01-31] MEDS: Spironolactone 25 MG Tab PO SCH (10:35)
[2018-01-31] MEDS: IMATINIB MESYLATE 600 MG PO SCH (10:36)
[2018-01-31] MEDS: Hypromellose 0.5% Ophth Soln 15 ML Bottle EYEBOTH SCH ×2 (10:36→21:24)
[2018-01-31] MEDS: Docusate Sodium 100 MG Cap PO SCH ×2 (10:36→21:22)
[2018-01-31] MEDS: Enoxaparin 40 MG/0.4 ML Syringe SUBCUT SCH (10:36)
[2018-01-31] MEDS: Acetaminophen/HYDROcodone 325-5 MG Tab PO PRN (11:51)
[2018-01-31] MEDS: LOXAPINE 25 MG PO SCH (17:24)
[2018-01-31] MEDS: Temazepam 15 MG Cap PO SCH (21:21)
[2018-01-31] MEDS: traZODone 50 MG Tab PO SCH (21:22)
[2018-01-31] MEDS: Losartan 100 MG Tab PO SCH (21:24)
[2018-01-31] MEDS: Simvastatin 10 MG Tab PO SCH (21:25)
[2018-02-01] MEDS: traMADol 50 MG Tab PO SCH ×3 (02:28→20:52)
[2018-02-01] MEDS: Polyethylene Glycol 3350 Powder 17 GM Packet PO PRN (06:34)
[2018-02-01] MEDS: Levothyroxine 100 MCG Tab PO SCH (06:34)
[2018-02-01] MEDS: Insulin Aspart 100 Units/ML 3 ML Pen SUBCUT SCH ×4 (07:35→22:15)
--- NOTE | 2018-02-01 08:04 | PCM.PN ---
- General Info Date of Service: 02/01/18 Admission Dx/Problem (Free Text): Admission Diagnosis/Problem Admission Diagnosis/Problem Fall at home Subjective Update: Follow Up Functional Status: Reports: Pain Controlled, Tolerating Diet, Ambulating, Urinating - Review of Systems General: Denies: Fever, Weakness, Fatigue, Malaise, Chills HEENT: Reports: No Symptoms Pulmonary: Denies: Shortness of Breath Cardiovascular: Denies: Chest Pain, Palpitations, Dyspnea on Exertion, Lightheadedness Gastrointestinal: Denies: Abdominal Pain, Nausea, Vomiting Genitourinary: Reports: No Symptoms Musculoskeletal: Reports: No Symptoms Skin: Denies: Cyanosis, Mottled, Pallor, Diaphoresis, Bruising Neurological: Reports: Difficulty Walking, Weakness, Gait Disturbance. Denies: Pre-Existing Deficit Psychiatric: Denies: Depression, Anxiety, Agitation, Hallucinations Systems Review Comment:: No significant overnight or acute issues. She is essentially the same as yesterday. She has no complaints. She asks if she qualifies for a wheel chair on discharge. - Patient Data Vitals - Most Recent: Last Vital Signs Temp 36.7 C 02/01/18 02:30 Pulse 68 02/01/18 02:30 Resp 14 02/01/18 02:30 BP 121/95 H 02/01/18 02:30 Pulse Ox 99 02/01/18 02:30 Weight - Most Recent: 83.915 kg I&O - Last 24 Hours: Intake & Output 01/31/18 02/01/18 02/01/18 22:59 06:59 14:59 Intake Total 1040 350 Output Total 400 1200 Balance 640 -850 Lab Results Last 24 Hours: Laboratory Results - last 24 hr 01/31/18 01/31/18 01/31/18 Range/Units 11:47 16:27 21:50 WBC (3.98-10.04) K/mm3 RBC (3.98-5.22) M/mm3 Hgb (11.2-15.7) gm/L Hct (34.1-44.9) % MCV (79.4-94.8) fl MCH (25.6-32.2) pg MCHC (32.2-35.5) g/dl RDW Std Deviation (36.4-46.3) fL Plt Count (182-369) K/mm3 MPV (9.4-12.3) fl Neut % (Auto) (34.0-71.1) % Lymph % (Auto) (19.3-51.7) % [place] % (Auto) (4.7-12.5) % Eos % (Auto) (0.7-5.8) Baso % (Auto) (0.1-1.2) % Neut # (Auto) (1.56-6.13) K/mm3 Lymph # (Auto) (1.18-3.74) K/mm3 [place] # (Auto) (0.24-0.36) K/mm3 Eos # (Auto) (0.04-0.36) K/mm3 Baso # (Auto) (0.01-0.08) K/mm3 Sodium (136-145) mEq/L Potassium (3.5-5.1) mEq/L Chloride (98-107) mEq/L Carbon Dioxide (21-32) mEq/L Anion Gap (5-15) BUN (7-18) mg/dL Creatinine (0.55-1.02) mg/dL Est Cr Clr Drug Dosing mL/min Estimated GFR (MDRD) (>60) mL/min BUN/Creatinine Ratio (14-18) Glucose (80-115) mg/dL POC Glucose 137 H 147 H 171 H (80-115) mg/dL Calcium (8.5-10.1) mg/dL Magnesium (1.8-2.4) mg/dl C-Reactive Protein (<1.0) mg/dL 02/01/18 02/01/18 02/01/18 Range/Units 05:31 05:31 06:47 WBC 7.19 (3.98-10.04) K/mm3 RBC 2.95 L (3.98-5.22) M/mm3 Hgb 9.7 L (11.2-15.7) gm/L Hct 30.2 L (34.1-44.9) % MCV 102.4 H (79.4-94.8) fl MCH 32.9 H (25.6-32.2) pg MCHC 32.1 L (32.2-35.5) g/dl RDW Std Deviation 61.5 H (36.4-46.3) fL Plt Count 298 (182-369) K/mm3 MPV 9.5 (9.4-12.3) fl Neut % (Auto) 64.9 (34.0-71.1) % Lymph % (Auto) 20.7 (19.3-51.7) % [place] % (Auto) 8.8 (4.7-12.5) % Eos % (Auto) 4.9 (0.7-5.8) Baso % (Auto) 0.6 (0.1-1.2) % Neut # (Auto) 4.67 (1.56-6.13) K/mm3 Lymph # (Auto) 1.49 (1.18-3.74) K/mm3 [place] # (Auto) 0.63 H (0.24-0.36) K/mm3 Eos # (Auto) 0.35 (0.04-0.36) K/mm3 Baso # (Auto) 0.04 (0.01-0.08) K/mm3 Sodium 129 L (136-145) mEq/L Potassium 4.0 (3.5-5.1) mEq/L Chloride 97 L (98-107) mEq/L Carbon Dioxide 25 (21-32) mEq/L Anion Gap 11.0 (5-15) BUN 28 H (7-18) mg/dL Creatinine 1.1 H (0.55-1.02) mg/dL Est Cr Clr Drug Dosing 38.09 mL/min Estimated GFR (MDRD) 50 (>60) mL/min BUN/Creatinine Ratio 25.5 H (14-18) Glucose 158 H (80-115) mg/dL POC Glucose 178 H (80-115) mg/dL Calcium 8.1 L (8.5-10.1) mg/dL Magnesium 2.0 (1.8-2.4) mg/dl C-Reactive Protein 0.5 (<1.0) mg/dL Med Orders - Current: Current Medications Acetaminophen (Tylenol) 650 mg PO Q6H PRN PRN Reason: Pain/Fever Last Admin: 01/20/18 08:27 Dose: 650 mg Hydrocodone Bitart/Acetaminophen ([place] 325-5 Mg) 1 - 2 tab PO Q4H PRN PRN Reason: Pain Last Admin: 01/31/18 11:51 Dose: 1 tab Albuterol (Proventil Neb Soln) 2.5 mg NEB Q2H PRN PRN Reason: Shortness Of Breath/wheezing Albuterol/Ipratropium (Duoneb 3.0-0.5 Mg/3 Ml) 3 ml NEB Q4H PRN PRN Reason: Shortness Of Breath/wheezing Artificial Tears (Isopto Tears 0.5% Ophth Soln) 0 ml EYEBOTH BID [facility] Last Admin: 01/31/18 21:24 Dose: 1 drop Bisacodyl (Dulcolax) 5 mg PO DAILY PRN PRN Reason: Constipation Last Admin: 01/22/18 09:35 Dose: 5 mg Clonidine HCl (Catapres) 0.3 mg PO BID [facility] Last Admin: 01/31/18 21:21 Dose: 0.3 mg Cyclobenzaprine HCl (Flexeril) 10 mg PO TID PRN PRN Reason: Muscle Spasm Last Admin: 01/23/18 09:43 Dose: 10 mg Dextrose/Water (Dextrose 50% In Water) 50 ml IVPUSH ASDIRECTED PRN PRN Reason: Hypoglycemia Diphenhydramine HCl (Benadryl) 25 mg IVPUSH Q6H PRN PRN Reason: Pruritis Last Admin: 01/20/18 23:35 Dose: 25 mg Docusate Sodium (Colace) 100 mg PO BID PRN PRN Reason: Constipation Docusate Sodium (Colace) 100 mg PO BID [facility] Last Admin: 01/31/18 21:22 Dose: 100 mg Enoxaparin Sodium (Lovenox) 40 mg SUBCUT DAILY [facility] Last Admin: 01/31/18 10:36 Dose: 40 mg Famotidine (Pepcid) 20 mg PO DAILY [facility] Last Admin: 01/31/18 10:31 Dose: 20 mg Furosemide (Lasix) 40 mg PO DAILY [facility] Last Admin: 01/31/18 10:31 Dose: 40 mg Hydralazine HCl (Apresoline) 20 mg IVPUSH Q6H PRN PRN Reason: Hypertension Last Admin: 01/23/18 02:14 Dose: 20 mg Hydromorphone HCl (Dilaudid) 0.5 mg IVPUSH Q4H PRN PRN Reason: Pain Last Admin: 01/22/18 22:28 Dose: 0.5 mg Insulin Aspart (Novolog) 0 unit SUBCUT QIDACANDBED [facility]; Protocol Last Admin: 01/31/18 22:15 Dose: 1 unit Levothyroxine Sodium (Synthroid) 100 mcg PO DAILY@0600 [facility] Last Admin: 02/01/18 06:34 Dose: 100 mcg Losartan Potassium (Cozaar) 100 mg PO BEDTIME [facility] Last Admin: 01/31/18 21:24 Dose: 100 mg Magnesium Hydroxide (Milk Of Magnesia) 30 ml PO Q12H PRN PRN Reason: Constipation Last Admin: 01/31/18 04:01 Dose: 30 ml Memantine (Namenda) 5 mg PO DAILY [facility] Last Admin: 01/31/18 10:30 Dose: 5 mg Metformin HCl (Glucophage) 500 mg PO BIDMEALS [facility] Metoprolol Succinate (Toprol Xl) 25 mg PO DAILY [facility] Last Admin: 01/31/18 10:35 Dose: 25 mg Metoprolol Tartrate (Lopressor) 5 mg IVPUSH Q4H PRN PRN Reason: Hypertension Last Admin: 01/21/18 09:45 Dose: 5 mg Miscellaneous Information (Remove Patch) 1 ea TRDERM Q7D [facility] Naloxone HCl (Narcan) 0.1 mg IVPUSH Q5M PRN PRN Reason: Oversedation Ondansetron HCl (Zofran) 4 mg IVPUSH Q4H PRN PRN Reason: Nausea/Vomiting Last Admin: 01/20/18 23:35 Dose: 4 mg Imatinib Mesylate [ (Gleevec] 600 Mg) 0 each PO DAILY [facility] Last Admin: 01/31/18 10:36 Dose: 600 each Loxapine 50 Mg 0 each PO BEDTIME [facility] Last Admin: 01/31/18 21:27 Dose: 2 each Loxapine 25 Mg 0 each PO DAILY@1800 [facility] Last Admin: 01/31/18 17:24 Dose: 1 each Polyethylene Glycol (Miralax) 17 gm PO DAILY PRN PRN Reason: Constipation Last Admin: 02/01/18 06:34 Dose: 17 gm Senna/Docusate Sodium (Senna Plus) 1 tab PO BID PRN PRN Reason: Constipation Last Admin: 01/30/18 08:50 Dose: 1 tab Simvastatin (Zocor) 10 mg PO BEDTIME [facility] Last Admin: 01/31/18 21:25 Dose: 10 mg Sodium Chloride (Saline Flush) 10 ml FLUSH ONETIME PRN PRN Reason: IV FLUSH Last Admin: 01/21/18 18:06 Dose: 10 ml Spironolactone (Aldactone) 25 mg PO DAILY [facility] Last Admin: 01/31/18 10:35 Dose: 25 mg Temazepam (Restoril) 15 mg PO BEDTIME [facility] Last Admin: 01/31/18 21:21 Dose: 15 mg Tramadol HCl (Ultram) 50 mg PO Q8H [facility] Last Admin: 02/01/18 02:28 Dose: 50 mg Trazodone HCl (Trazodone) 100 mg PO BEDTIME [facility] Last Admin: 01/31/18 21:22 Dose: 100 mg Discontinued Medications Albuterol (Proventil Neb Soln) 2.5 mg NEB ONETIME ONE Stop: 01/20/18 13:58 Last Admin: 01/20/18 19:13 Dose: Not Given Artificial Tears (Isopto Tears 0.5% Ophth Soln) 0 ml EYEBOTH BID [facility] Last Admin: 01/19/18 15:00 Dose: Not Given Artificial Tears (Isopto Tears 0.5% Ophth Soln) 0 ml EYEBOTH BID [facility] Last Admin: 01/19/18 14:20 Dose: 1 drop Bisacodyl (Dulcolax) 10 mg RECTAL ONETIME ONE Stop: 01/23/18 06:12 Last Admin: 01/23/18 06:25 Dose: 10 mg Bupivacaine HCl (Sensorcaine-Mpf 0.75%) Confirm Administered Dose 30 ml .ROUTE .STK-MED ONE Stop: 01/20/18 11:45 Bupivacaine HCl (Marcaine 0.25%) Confirm Administered Dose 30 ml .ROUTE .STK- MED ONE Stop: 01/20/18 12:15 Last Admin: 01/20/18 13:48 Dose: 30 ml Cefazolin Sodium (Ancef) Confirm Administered Dose 2 gm .ROUTE .STK-MED ONE Stop: 01/20/18 11:46 Clonidine HCl (Catapres) 0.3 mg PO BID [facility] Clonidine HCl (Catapres) 0.1 mg PO ONETIME ONE Stop: 01/19/18 19:38 Last Admin: 01/19/18 19:59 Dose: 0.1 mg Clonidine HCl (Catapres) 0.1 mg PO Q8H [facility] Last Admin: 01/22/18 04:14 Dose: 0.1 mg Clonidine HCl (Catapres-Tts 3) 0.3 mg TRDERM Q7D ONE Stop: 01/27/18 22:01 Last Admin: 01/27/18 22:21 Dose: 0.3 mg Dextrose (Glutose 15) 15 gm PO ASDIRECTED PRN PRN Reason: LOW BS Famotidine (Pepcid) 20 mg PO BID [facility] Last Admin: 01/19/18 13:10 Dose: 20 mg Famotidine (Pepcid) 20 mg PO Q12H [facility] Last Admin: 01/20/18 17:13 Dose: Not Given Famotidine (Pepcid) 20 mg PO BID@0600,1800 [facility] Last Admin: 01/21/18 05:28 Dose: 20 mg Fentanyl (Sublimaze) Confirm Administered Dose 100 mcg .ROUTE .STK-MED ONE Stop: 01/20/18 11:46 Fentanyl (Sublimaze) 50 mcg IVPUSH Q5M PRN PRN Reason: Pain Furosemide (Lasix) 40 mg PO TID [facility] Last Admin: 01/19/18 14:19 Dose: 40 mg Furosemide (Lasix) 40 mg PO TID [facility] Furosemide (Lasix) 40 mg PO DAILY [facility] Furosemide (Lasix) 40 mg IVPUSH NOW ONE Stop: 01/20/18 05:01 Last Admin: 01/20/18 06:00 Dose: 40 mg Furosemide (Lasix) 40 mg IVPUSH ONETIME ONE Stop: 01/21/18 12:01 Last Admin: 01/21/18 13:27 Dose: 40 mg Hydromorphone HCl (Dilaudid) 1 mg IVPUSH ONETIME ONE Stop: 01/19/18 05:25 Last Admin: 01/19/18 05:48 Dose: 1 mg Hydromorphone HCl (Dilaudid) 0.5 mg IVPUSH ONETIME ONE Stop: 01/19/18 07:33 Last Admin: 01/19/18 07:53 Dose: 0.5 mg Hydromorphone HCl (Dilaudid) 0.5 mg IM ONETIME ONE Stop: 01/21/18 13:18 Last Admin: 01/21/18 13:15 Dose: Not Given Sodium Chloride (Normal Saline) 1,000 mls @ 250 mls/hr IV ASDIRECTED [facility] Last Admin: 01/19/18 05:47 Dose: 250 mls/hr Lactated Ringer's (Ringers, Lactated) 1,000 mls @ 125 mls/hr IV ASDIRECTED [facility] Last Infusion: 01/20/18 12:30 Dose: 0 mls/hr Vancomycin HCl 1 gm/ Sodium (Chloride) 250 mls @ 250 mls/hr IV ONETIME ONE Stop: 01/20/18 14:14 Last Admin: 01/20/18 19:13 Dose: Not Given Sodium Chloride (Normal Saline) Confirm Administered Dose 100 mls @ as directed .ROUTE .STK-MED ONE Stop: 01/20/18 14:00 Lactated Ringer's (Ringers, Lactated) Confirm Administered Dose 1,000 mls @ as directed .ROUTE .STK-MED ONE Stop: 01/20/18 14:49 Lactated Ringer's (Ringers, Lactated) Confirm Administered Dose 1,000 mls @ as directed .ROUTE .STK-MED ONE Stop: 01/20/18 14:49 Cefazolin Sodium/Dextrose 2 gm (/ Premix) 50 mls @ 100 mls/hr IV Q8H [facility] Stop: 01/21/18 12:29 Last Admin: 01/21/18 11:04 Dose: 100 mls/hr Sodium Chloride (Normal Saline) 500 mls @ 75 mls/hr IV ONETIME ONE Stop: 01/21/18 17:39 Last Admin: 01/21/18 11:44 Dose: 75 mls/hr Iopamidol (Isovue-300 (61%)) 100 ml IVPUSH ONETIME ONE Stop: 01/19/18 15:46 Last Admin: 01/19/18 15:49 Dose: 100 ml Ketamine HCl (Ketalar) Confirm Administered Dose 500 mg .ROUTE .STK-MED ONE Stop: 01/20/18 11:47 Ketorolac Tromethamine (Toradol) 15 mg IVPUSH Q6H [facility] Stop: 01/20/18 17:01 Last Admin: 01/20/18 18:02 Dose: 15 mg Levothyroxine Sodium (Synthroid) 100 mcg PO DAILY [facility] Last Admin: 01/22/18 09:41 Dose: Not Given Lidocaine HCl (Xylocaine-Mpf 1%) Confirm Administered Dose 5 ml .ROUTE .STK-MED ONE Stop: 01/20/18 12:33 Losartan Potassium (Cozaar) 100 mg PO DAILY [facility] Last Admin: 01/19/18 14:19 Dose: 100 mg Metoprolol Succinate (Toprol Xl) 25 mg PO DAILY [facility] Last Admin: 01/19/18 14:14 Dose: 25 mg Midazolam HCl (Versed 1 Mg/Ml) Confirm Administered Dose 2 mg .ROUTE .STK-MED ONE Stop: 01/20/18 11:46 Midazolam HCl (Versed 1 Mg/Ml) Confirm Administered Dose 2 mg .ROUTE .STK-MED ONE Stop: 01/20/18 13:28 Morphine Sulfate (Duramorph Pf) Confirm Administered Dose 1 mg .ROUTE .STK-MED ONE Stop: 01/20/18 12:28 Naloxone HCl (Narcan) 0.5 mg IVPUSH ONETIME ONE Stop: 01/19/18 17:04 Last Admin: 01/19/18 17:28 Dose: 0.5 mg Non-Formulary Medication (Acetaminophen) 650 mg PO Q8H PRN PRN Reason: Pain Ondansetron HCl (Zofran) 4 mg IVPUSH ONETIME ONE Stop: 01/19/18 05:25 Last Admin: 01/19/18 05:47 Dose: 4 mg Ondansetron HCl (Zofran) 4 mg IVPUSH ONETIME PRN PRN Reason: Nausea/Vomiting Ondansetron HCl (Zofran) Confirm Administered Dose 4 mg .ROUTE .STK-MED ONE Stop: 01/20/18 14:49 Pantoprazole Sodium (Protonix Iv) 40 mg IVPUSH DAILY [facility] Pantoprazole Sodium (Protonix Iv) 40 mg IVPUSH BID [facility] Last Admin: 01/20/18 09:37 Dose: 40 mg Loxapine 25 Mg 0 each PO DAILY@1400 [facility] Last Admin: 01/19/18 15:00 Dose: Not Given Phenylephrine HCl (Rodney-Synephrine) Confirm Administered Dose 10 mg .ROUTE .STK- MED ONE Stop: 01/20/18 14:00 Phenylephrine HCl (Phenylephrine In Ns 100 Mcg/Ml) Confirm Administered Dose 1 mg .ROUTE .STK-MED ONE Stop: 01/20/18 14:01 Propofol (Diprivan 20 Ml) Confirm Administered Dose 600 mg .ROUTE .STK-MED ONE Stop: 01/20/18 11:46 Temazepam (Restoril) 30 mg PO BEDTIME [facility] Temazepam (Restoril) 7.5 mg PO BEDTIME [facility] Last Admin: 01/24/18 21:26 Dose: 7.5 mg Temazepam (Restoril) 7.5 mg PO ONETIME ONE Stop: 01/24/18 22:03 Last Admin: 01/24/18 22:40 Dose: 7.5 mg - Exam General: Alert, Cooperative, No Acute Distress HEENT: Pupils Equal, Pupils Reactive, EOMI, Mucous Membr. Moist/Bowler Neck: Supple, Trachea Midline, No JVD, No Thyromegaly Lungs: Clear to Auscultation, Normal Respiratory Effort Cardiovascular: Regular Rate, Regular Rhythm GI/Abdominal Exam: Normal Bowel Sounds, Soft, Non-Tender, No Organomegaly, No Distention, No Abnormal Bruit, No Mass (Female) Exam: Deferred Back Exam: Normal Inspection, Decreased Range of Motion Extremities: Normal Inspection, Normal Range of Motion, Non-Tender, Normal Capillary Refill, Other (mild peripheral edema) Peripheral Pulses: 2+: Dorsalis Pedis (L), Dorsalis Pedis (R) Skin: Warm, Dry, Intact Wound/Incisions: Healing Well, Dressing Dry and Intact, No Drainage Neurological: No New Focal Deficit Psy/Mental Status: Alert, Normal Affect, Normal Mood - Problem List Review Problem List Initiated/Reviewed/Updated: Yes - Plan Plan:: I/P: Acute: Fracture of proximal end of femur, s/p fall ; POD 13: IM paul placement for left femoral shaft fracture, Stable -Pain controlled -Stable condition -Pain medication PRN -Bedrest, PT/OT after surgery--> walking now with PT/OT -Continue supportive care HTN -Labile -Continue current BP regimen -PRN BP meds as needed Hyponatremia -Na 130--> 129 -Dietary consult for hyponatremia -Thermotabs 1 tab pos TID meals Resolved: S/p Hyperemesis--resolved -Risk factor: chemotherapy -Zofran Q4H -IV lactated ringers Chronic: Anemia, Thrombocytopenia- improving -RBC 2.96-->2.74-->2.95-->3.03, Hgb 9.4-->8.9-->9.4,-->9.8 HCT 28.7-->26.8--> 29.3, -->30.7, RDW 51.8-->52.4-->53.8-->59.5 -Plt 173-->180-->208-->279 -Monitor -Blood Type and Screen ordered -Replenish with PRBCs as needed CKD stage III, improving -eGFR 47-->50-->46-->42-->56 -Creatinine 1.7-->1.1-->1.2-->1.3-->1.0 -NS IV started in ED--> D/C and start LR IV--> D/C -Defer to PCP for f/u Diabetes Type II -Blood Glucose Checks QID -Continue at home Metformin 500mg -Sliding scale Insulin -A1C 5.0 -ADA diet after surgery -Defer to PCP for f/u CHF, improving -BNP 236-->1891-->1366-->2548-->2782-->1166-->722-->647-->533 -Continue at home Lasix 40mg TID -Monitor Traumatic Brain Injury Leukemia --> Continue at home Gleevec 600mg here Plan: She remains clinically stable and has been ambulating well with PT/OT Routine AM labs Continue PT/OT Ortho following Encourage patient to ambulate as much as she can CM/SW for discharge planning DVT Prophylaxis: SCD/Lovenox SubQ Ready to D/C pending SNF placement for rehabilitation--> Gleevec is causing issues with placement Code Status: Full code (CPR, Defib, Intubation)- However "No life sustaining treatment on machines" -per Sister Beti, Power of Profile Grinder PCP: Dr. Cespedes Placement still pending. CM to discuss wheelchair eligibility with patients.
[2018-02-01] MEDS: Famotidine 20 MG Tab PO SCH (09:34)
[2018-02-01] MEDS: cloNIDine 0.1 MG Tab PO SCH ×2 (09:34→20:50)
[2018-02-01] MEDS: Furosemide 40 MG Tab PO SCH (09:34)
[2018-02-01] MEDS: IMATINIB MESYLATE 600 MG PO SCH (09:38)
[2018-02-01] MEDS: Docusate Sodium 100 MG Cap PO SCH ×2 (09:38→20:51)
[2018-02-01] MEDS: Spironolactone 25 MG Tab PO SCH (09:38)
[2018-02-01] MEDS: Metoprolol Succinate 25 MG Tab.ER PO SCH (09:38)
[2018-02-01] MEDS: Enoxaparin 40 MG/0.4 ML Syringe SUBCUT SCH (09:39)
[2018-02-01] MEDS: Memantine 10 MG Tab PO SCH (09:39)
[2018-02-01] MEDS: Potassium Chloride/Sodium Chloride Tab PO SCH ×2 (13:56→16:27)
[2018-02-01] MEDS: Hypromellose 0.5% Ophth Soln 15 ML Bottle EYEBOTH SCH ×2 (14:02→20:50)
[2018-02-01] MEDS: LOXAPINE 25 MG PO SCH (18:06)
[2018-02-01] MEDS: Temazepam 15 MG Cap PO SCH (20:51)
[2018-02-01] MEDS: traZODone 50 MG Tab PO SCH (20:51)
[2018-02-01] MEDS: Simvastatin 10 MG Tab PO SCH (20:51)
[2018-02-01] MEDS: Losartan 100 MG Tab PO SCH (20:51)
[2018-02-02] MEDS: traMADol 50 MG Tab PO SCH ×3 (03:57→18:07)
[2018-02-02] MEDS: Levothyroxine 100 MCG Tab PO SCH (06:12)
[2018-02-02] MEDS: Insulin Aspart 100 Units/ML 3 ML Pen SUBCUT SCH ×4 (08:11→21:14)
[2018-02-02] MEDS: cloNIDine 0.1 MG Tab PO SCH ×2 (08:14→21:03)
[2018-02-02] MEDS: Memantine 10 MG Tab PO SCH (08:14)
[2018-02-02] MEDS: Potassium Chloride/Sodium Chloride Tab PO SCH ×3 (08:14→17:08)
[2018-02-02] MEDS: Famotidine 20 MG Tab PO SCH (08:14)
[2018-02-02] MEDS: Spironolactone 25 MG Tab PO SCH (08:15)
[2018-02-02] MEDS: Docusate Sodium 100 MG Cap PO SCH ×2 (08:15→21:04)
[2018-02-02] MEDS: Furosemide 40 MG Tab PO SCH (08:15)
[2018-02-02] MEDS: Metoprolol Succinate 25 MG Tab.ER PO SCH (08:15)
[2018-02-02] MEDS: Hypromellose 0.5% Ophth Soln 15 ML Bottle EYEBOTH SCH ×2 (08:15→21:07)
[2018-02-02] MEDS: Enoxaparin 40 MG/0.4 ML Syringe SUBCUT SCH (08:16)
[2018-02-02] MEDS: IMATINIB MESYLATE 600 MG PO SCH (08:16)
--- NOTE | 2018-02-02 08:34 | PCM.SURGPN ---
- General Info Date of Service: 02/02/18 POD#: other (13 days s/p IM nail placement) - Patient Data Vitals - Most Recent: Last Vital Signs Temp 98.4 F 02/02/18 07:50 Pulse 72 02/02/18 08:15 Resp 16 02/02/18 07:50 BP 123/53 L 02/02/18 08:15 Pulse Ox 98 02/02/18 07:50 Weight - Most Recent: 182 lb 3.2 oz I&O - Last 24 Hours: Intake & Output 02/01/18 02/02/18 02/02/18 22:59 06:59 14:59 Intake Total 1200 400 Output Total 2100 800 Balance -900 -400 Lab Results Last 24 Hrs: Laboratory Results - last 24 hr 02/01/18 02/01/18 02/01/18 Range/Units 11:51 16:25 20:48 WBC (3.98-10.04) K/mm3 RBC (3.98-5.22) M/mm3 Hgb (11.2-15.7) gm/L Hct (34.1-44.9) % MCV (79.4-94.8) fl MCH (25.6-32.2) pg MCHC (32.2-35.5) g/dl RDW Std Deviation (36.4-46.3) fL Plt Count (182-369) K/mm3 MPV (9.4-12.3) fl Neut % (Auto) (34.0-71.1) % Lymph % (Auto) (19.3-51.7) % Laporte % (Auto) (4.7-12.5) % Eos % (Auto) (0.7-5.8) Baso % (Auto) (0.1-1.2) % Neut # (Auto) (1.56-6.13) K/mm3 Lymph # (Auto) (1.18-3.74) K/mm3 [place] # (Auto) (0.24-0.36) K/mm3 Eos # (Auto) (0.04-0.36) K/mm3 Baso # (Auto) (0.01-0.08) K/mm3 Sodium (136-145) mEq/L Potassium (3.5-5.1) mEq/L Chloride (98-107) mEq/L Carbon Dioxide (21-32) mEq/L Anion Gap (5-15) BUN (7-18) mg/dL Creatinine (0.55-1.02) mg/dL Est Cr Clr Drug Dosing mL/min Estimated GFR (MDRD) (>60) mL/min BUN/Creatinine Ratio (14-18) Glucose (80-115) mg/dL POC Glucose 122 H 181 H 191 H (80-115) mg/dL Calcium (8.5-10.1) mg/dL Magnesium (1.8-2.4) mg/dl C-Reactive Protein (<1.0) mg/dL 02/02/18 02/02/18 02/02/18 Range/Units 05:40 05:40 06:21 WBC 6.80 (3.98-10.04) K/mm3 RBC 2.94 L (3.98-5.22) M/mm3 Hgb 9.6 L (11.2-15.7) gm/L Hct 29.9 L (34.1-44.9) % MCV 101.7 H (79.4-94.8) fl MCH 32.7 H (25.6-32.2) pg MCHC 32.1 L (32.2-35.5) g/dl RDW Std Deviation 63.0 H (36.4-46.3) fL Plt Count 307 (182-369) K/mm3 MPV 9.4 (9.4-12.3) fl Neut % (Auto) 61.9 (34.0-71.1) % Lymph % (Auto) 23.1 (19.3-51.7) % Laporte % (Auto) 9.4 (4.7-12.5) % Eos % (Auto) 4.9 (0.7-5.8) Baso % (Auto) 0.6 (0.1-1.2) % Neut # (Auto) 4.21 (1.56-6.13) K/mm3 Lymph # (Auto) 1.57 (1.18-3.74) K/mm3 [place] # (Auto) 0.64 H (0.24-0.36) K/mm3 Eos # (Auto) 0.33 (0.04-0.36) K/mm3 Baso # (Auto) 0.04 (0.01-0.08) K/mm3 Sodium 133 L (136-145) mEq/L Potassium 4.1 (3.5-5.1) mEq/L Chloride 102 (98-107) mEq/L Carbon Dioxide 25 (21-32) mEq/L Anion Gap 10.1 (5-15) BUN 26 H (7-18) mg/dL Creatinine 1.0 (0.55-1.02) mg/dL Est Cr Clr Drug Dosing 41.90 mL/min Estimated GFR (MDRD) 56 (>60) mL/min BUN/Creatinine Ratio 26.0 H (14-18) Glucose 174 H (80-115) mg/dL POC Glucose 163 H (80-115) mg/dL Calcium 8.2 L (8.5-10.1) mg/dL Magnesium 2.0 (1.8-2.4) mg/dl C-Reactive Protein 0.4 (<1.0) mg/dL Med Orders - Current: Current Medications Acetaminophen (Tylenol) 650 mg PO Q6H PRN PRN Reason: Pain/Fever Last Admin: 01/20/18 08:27 Dose: 650 mg Hydrocodone Bitart/Acetaminophen (Hersey 325-5 Mg) 1 - 2 tab PO Q4H PRN PRN Reason: Pain Last Admin: 01/31/18 11:51 Dose: 1 tab Albuterol (Proventil Neb Soln) 2.5 mg NEB Q2H PRN PRN Reason: Shortness Of Breath/wheezing Albuterol/Ipratropium (Duoneb 3.0-0.5 Mg/3 Ml) 3 ml NEB Q4H PRN PRN Reason: Shortness Of Breath/wheezing Artificial Tears (Isopto Tears 0.5% Ophth Soln) 0 ml EYEBOTH BID [facility] Last Admin: 02/02/18 08:15 Dose: 1 drop Bisacodyl (Dulcolax) 5 mg PO DAILY PRN PRN Reason: Constipation Last Admin: 01/22/18 09:35 Dose: 5 mg Clonidine HCl (Catapres) 0.3 mg PO BID [facility] Last Admin: 02/02/18 08:14 Dose: 0.3 mg Cyclobenzaprine HCl (Flexeril) 10 mg PO TID PRN PRN Reason: Muscle Spasm Last Admin: 01/23/18 09:43 Dose: 10 mg Dextrose/Water (Dextrose 50% In Water) 50 ml IVPUSH ASDIRECTED PRN PRN Reason: Hypoglycemia Diphenhydramine HCl (Benadryl) 25 mg IVPUSH Q6H PRN PRN Reason: Pruritis Last Admin: 01/20/18 23:35 Dose: 25 mg Docusate Sodium (Colace) 100 mg PO BID PRN PRN Reason: Constipation Docusate Sodium (Colace) 100 mg PO BID [facility] Last Admin: 02/02/18 08:15 Dose: 100 mg Enoxaparin Sodium (Lovenox) 40 mg SUBCUT DAILY [facility] Last Admin: 02/02/18 08:16 Dose: 40 mg Famotidine (Pepcid) 20 mg PO DAILY [facility] Last Admin: 02/02/18 08:14 Dose: 20 mg Furosemide (Lasix) 40 mg PO DAILY [facility] Last Admin: 02/02/18 08:15 Dose: 40 mg Hydralazine HCl (Apresoline) 20 mg IVPUSH Q6H PRN PRN Reason: Hypertension Last Admin: 01/23/18 02:14 Dose: 20 mg Hydromorphone HCl (Dilaudid) 0.5 mg IVPUSH Q4H PRN PRN Reason: Pain Last Admin: 01/22/18 22:28 Dose: 0.5 mg Insulin Aspart (Novolog) 0 unit SUBCUT QIDACANDBED [facility]; Protocol Last Admin: 02/02/18 08:11 Dose: 1 unit Levothyroxine Sodium (Synthroid) 100 mcg PO DAILY@0600 [facility] Last Admin: 02/02/18 06:12 Dose: 100 mcg Losartan Potassium (Cozaar) 100 mg PO BEDTIME [facility] Last Admin: 02/01/18 20:51 Dose: 100 mg Magnesium Hydroxide (Milk Of Magnesia) 30 ml PO Q12H PRN PRN Reason: Constipation Last Admin: 01/31/18 04:01 Dose: 30 ml Memantine (Namenda) 5 mg PO DAILY [facility] Last Admin: 02/02/18 08:14 Dose: 5 mg Metformin HCl (Glucophage) 500 mg PO BIDMEALS [facility] Metoprolol Succinate (Toprol Xl) 25 mg PO DAILY [facility] Last Admin: 02/02/18 08:15 Dose: 25 mg Metoprolol Tartrate (Lopressor) 5 mg IVPUSH Q4H PRN PRN Reason: Hypertension Last Admin: 01/21/18 09:45 Dose: 5 mg Miscellaneous Information (Remove Patch) 1 ea TRDERM Q7D [facility] Naloxone HCl (Narcan) 0.1 mg IVPUSH Q5M PRN PRN Reason: Oversedation Ondansetron HCl (Zofran) 4 mg IVPUSH Q4H PRN PRN Reason: Nausea/Vomiting Last Admin: 01/20/18 23:35 Dose: 4 mg Oral Electrolytes (Thermotabs) 1 each PO TIDMEALS [facility] Last Admin: 02/02/18 08:14 Dose: 1 each Imatinib Mesylate [ (Gleevec] 600 Mg) 0 each PO DAILY [facility] Last Admin: 02/02/18 08:16 Dose: 1 each Loxapine 50 Mg 0 each PO BEDTIME [facility] Last Admin: 02/01/18 20:52 Dose: 2 each Loxapine 25 Mg 0 each PO DAILY@1800 [facility] Last Admin: 02/01/18 18:06 Dose: 1 each Polyethylene Glycol (Miralax) 17 gm PO DAILY PRN PRN Reason: Constipation Last Admin: 02/01/18 06:34 Dose: 17 gm Senna/Docusate Sodium (Senna Plus) 1 tab PO BID PRN PRN Reason: Constipation Last Admin: 01/30/18 08:50 Dose: 1 tab Simvastatin (Zocor) 10 mg PO BEDTIME [facility] Last Admin: 02/01/18 20:51 Dose: 10 mg Sodium Chloride (Saline Flush) 10 ml FLUSH ONETIME PRN PRN Reason: IV FLUSH Last Admin: 01/21/18 18:06 Dose: 10 ml Spironolactone (Aldactone) 25 mg PO DAILY [facility] Last Admin: 02/02/18 08:15 Dose: 25 mg Temazepam (Restoril) 15 mg PO BEDTIME [facility] Last Admin: 02/01/18 20:51 Dose: 15 mg Tramadol HCl (Ultram) 50 mg PO Q8H [facility] Last Admin: 02/02/18 03:57 Dose: 50 mg Trazodone HCl (Trazodone) 100 mg PO BEDTIME [facility] Last Admin: 02/01/18 20:51 Dose: 100 mg Discontinued Medications Albuterol (Proventil Neb Soln) 2.5 mg NEB ONETIME ONE Stop: 01/20/18 13:58 Last Admin: 01/20/18 19:13 Dose: Not Given Artificial Tears (Isopto Tears 0.5% Ophth Soln) 0 ml EYEBOTH BID [facility] Last Admin: 01/19/18 15:00 Dose: Not Given Artificial Tears (Isopto Tears 0.5% Ophth Soln) 0 ml EYEBOTH BID [facility] Last Admin: 01/19/18 14:20 Dose: 1 drop Bisacodyl (Dulcolax) 10 mg RECTAL ONETIME ONE Stop: 01/23/18 06:12 Last Admin: 01/23/18 06:25 Dose: 10 mg Bupivacaine HCl (Sensorcaine-Mpf 0.75%) Confirm Administered Dose 30 ml .ROUTE .STK-MED ONE Stop: 01/20/18 11:45 Bupivacaine HCl (Marcaine 0.25%) Confirm Administered Dose 30 ml .ROUTE .STK- MED ONE Stop: 01/20/18 12:15 Last Admin: 01/20/18 13:48 Dose: 30 ml Cefazolin Sodium (Ancef) Confirm Administered Dose 2 gm .ROUTE .STK-MED ONE Stop: 01/20/18 11:46 Clonidine HCl (Catapres) 0.3 mg PO BID [facility] Clonidine HCl (Catapres) 0.1 mg PO ONETIME ONE Stop: 01/19/18 19:38 Last Admin: 01/19/18 19:59 Dose: 0.1 mg Clonidine HCl (Catapres) 0.1 mg PO Q8H [facility] Last Admin: 01/22/18 04:14 Dose: 0.1 mg Clonidine HCl (Catapres-Tts 3) 0.3 mg TRDERM Q7D ONE Stop: 01/27/18 22:01 Last Admin: 01/27/18 22:21 Dose: 0.3 mg Dextrose (Glutose 15) 15 gm PO ASDIRECTED PRN PRN Reason: LOW BS Famotidine (Pepcid) 20 mg PO BID [facility] Last Admin: 01/19/18 13:10 Dose: 20 mg Famotidine (Pepcid) 20 mg PO Q12H [facility] Last Admin: 01/20/18 17:13 Dose: Not Given Famotidine (Pepcid) 20 mg PO BID@0600,1800 [facility] Last Admin: 01/21/18 05:28 Dose: 20 mg Fentanyl (Sublimaze) Confirm Administered Dose 100 mcg .ROUTE .STK-MED ONE Stop: 01/20/18 11:46 Fentanyl (Sublimaze) 50 mcg IVPUSH Q5M PRN PRN Reason: Pain Furosemide (Lasix) 40 mg PO TID [facility] Last Admin: 01/19/18 14:19 Dose: 40 mg Furosemide (Lasix) 40 mg PO TID [facility] Furosemide (Lasix) 40 mg PO DAILY [facility] Furosemide (Lasix) 40 mg IVPUSH NOW ONE Stop: 01/20/18 05:01 Last Admin: 01/20/18 06:00 Dose: 40 mg Furosemide (Lasix) 40 mg IVPUSH ONETIME ONE Stop: 01/21/18 12:01 Last Admin: 01/21/18 13:27 Dose: 40 mg Hydromorphone HCl (Dilaudid) 1 mg IVPUSH ONETIME ONE Stop: 01/19/18 05:25 Last Admin: 01/19/18 05:48 Dose: 1 mg Hydromorphone HCl (Dilaudid) 0.5 mg IVPUSH ONETIME ONE Stop: 01/19/18 07:33 Last Admin: 01/19/18 07:53 Dose: 0.5 mg Hydromorphone HCl (Dilaudid) 0.5 mg IM ONETIME ONE Stop: 01/21/18 13:18 Last Admin: 01/21/18 13:15 Dose: Not Given Sodium Chloride (Normal Saline) 1,000 mls @ 250 mls/hr IV ASDIRECTED [facility] Last Admin: 01/19/18 05:47 Dose: 250 mls/hr Lactated Ringer's (Ringers, Lactated) 1,000 mls @ 125 mls/hr IV ASDIRECTED [facility] Last Infusion: 01/20/18 12:30 Dose: 0 mls/hr Vancomycin HCl 1 gm/ Sodium (Chloride) 250 mls @ 250 mls/hr IV ONETIME ONE Stop: 01/20/18 14:14 Last Admin: 01/20/18 19:13 Dose: Not Given Sodium Chloride (Normal Saline) Confirm Administered Dose 100 mls @ as directed .ROUTE .STK-MED ONE Stop: 01/20/18 14:00 Lactated Ringer's (Ringers, Lactated) Confirm Administered Dose 1,000 mls @ as directed .ROUTE .STK-MED ONE Stop: 01/20/18 14:49 Lactated Ringer's (Ringers, Lactated) Confirm Administered Dose 1,000 mls @ as directed .ROUTE .STK-MED ONE Stop: 01/20/18 14:49 Cefazolin Sodium/Dextrose 2 gm (/ Premix) 50 mls @ 100 mls/hr IV Q8H [facility] Stop: 01/21/18 12:29 Last Admin: 01/21/18 11:04 Dose: 100 mls/hr Sodium Chloride (Normal Saline) 500 mls @ 75 mls/hr IV ONETIME ONE Stop: 01/21/18 17:39 Last Admin: 01/21/18 11:44 Dose: 75 mls/hr Iopamidol (Isovue-300 (61%)) 100 ml IVPUSH ONETIME ONE Stop: 01/19/18 15:46 Last Admin: 01/19/18 15:49 Dose: 100 ml Ketamine HCl (Ketalar) Confirm Administered Dose 500 mg .ROUTE .[facility]-MED ONE Stop: 01/20/18 11:47 Ketorolac Tromethamine (Toradol) 15 mg IVPUSH Q6H [facility] Stop: 01/20/18 17:01 Last Admin: 01/20/18 18:02 Dose: 15 mg Levothyroxine Sodium (Synthroid) 100 mcg PO DAILY [facility] Last Admin: 01/22/18 09:41 Dose: Not Given Lidocaine HCl (Xylocaine-Mpf 1%) Confirm Administered Dose 5 ml .ROUTE .ST-MED ONE Stop: 01/20/18 12:33 Losartan Potassium (Cozaar) 100 mg PO DAILY [facility] Last Admin: 01/19/18 14:19 Dose: 100 mg Metoprolol Succinate (Toprol Xl) 25 mg PO DAILY [facility] Last Admin: 01/19/18 14:14 Dose: 25 mg Midazolam HCl (Versed 1 Mg/Ml) Confirm Administered Dose 2 mg .ROUTE .STK-MED ONE Stop: 01/20/18 11:46 Midazolam HCl (Versed 1 Mg/Ml) Confirm Administered Dose 2 mg .ROUTE .STK-MED ONE Stop: 01/20/18 13:28 Morphine Sulfate (Duramorph Pf) Confirm Administered Dose 1 mg .ROUTE .STK-MED ONE Stop: 01/20/18 12:28 Naloxone HCl (Narcan) 0.5 mg IVPUSH ONETIME ONE Stop: 01/19/18 17:04 Last Admin: 01/19/18 17:28 Dose: 0.5 mg Non-Formulary Medication (Acetaminophen) 650 mg PO Q8H PRN PRN Reason: Pain Ondansetron HCl (Zofran) 4 mg IVPUSH ONETIME ONE Stop: 01/19/18 05:25 Last Admin: 01/19/18 05:47 Dose: 4 mg Ondansetron HCl (Zofran) 4 mg IVPUSH ONETIME PRN PRN Reason: Nausea/Vomiting Ondansetron HCl (Zofran) Confirm Administered Dose 4 mg .ROUTE .STK-MED ONE Stop: 01/20/18 14:49 Pantoprazole Sodium (Protonix Iv) 40 mg IVPUSH DAILY [facility] Pantoprazole Sodium (Protonix Iv) 40 mg IVPUSH BID [facility] Last Admin: 01/20/18 09:37 Dose: 40 mg Loxapine 25 Mg 0 each PO DAILY@1400 [facility] Last Admin: 01/19/18 15:00 Dose: Not Given Phenylephrine HCl (Rodney-Synephrine) Confirm Administered Dose 10 mg .ROUTE .STK- MED ONE Stop: 01/20/18 14:00 Phenylephrine HCl (Phenylephrine In Ns 100 Mcg/Ml) Confirm Administered Dose 1 mg .ROUTE .STK-MED ONE Stop: 01/20/18 14:01 Propofol (Diprivan 20 Ml) Confirm Administered Dose 600 mg .ROUTE .STK-MED ONE Stop: 01/20/18 11:46 Temazepam (Restoril) 30 mg PO BEDTIME [facility] Temazepam (Restoril) 7.5 mg PO BEDTIME [facility] Last Admin: 01/24/18 21:26 Dose: 7.5 mg Temazepam (Restoril) 7.5 mg PO ONETIME ONE Stop: 01/24/18 22:03 Last Admin: 01/24/18 22:40 Dose: 7.5 mg - Exam Wound/Incisions: Dressing Dry and Intact General: Alert, Cooperative, No Acute Distress Lungs: Normal Respiratory Effort Extremities: Other (Shashi's negative for LLE. ) - Problem List Review Problem List Initiated/Reviewed/Updated: Yes - My Orders Last 24 Hours: Active Orders 24 hr Category Date Time Status Ambulate [RC] QID Care 02/01/18 08:42 Active Communication Order [RC] ASDIRECTED Care 02/02/18 08:30 Ordered Consult to Dietary [Consult to Poultice Machine Operator] [CONS] Cons 02/01/18 13:31 Active Routine Femur Min 2V Lt [CR] Routine Exams 02/02/18 08:29 Ordered Potassium Chloride/NaCl [Thermotabs] Med 02/01/18 13:32 Active 1 each PO TIDMEALS Remove Patch Med 02/03/18 22:15 Active 1 ea TRDERM Q7D Medication Orders Acetaminophen (Tylenol) 650 mg PO Q6H PRN PRN Reason: Pain/Fever Last Admin: 01/20/18 08:27 Dose: 650 mg Admin: 01/19/18 19:01 Dose: 650 mg Hydrocodone Bitart/Acetaminophen (Hersey 325-5 Mg) 1 - 2 tab PO Q4H PRN PRN Reason: Pain Last Admin: 01/31/18 11:51 Dose: 1 tab Admin: 01/30/18 21:59 Dose: 2 tab Admin: 01/30/18 08:49 Dose: 1 tab Admin: 01/30/18 00:51 Dose: 2 tab Admin: 01/27/18 12:38 Dose: 2 tab Admin: 01/26/18 09:38 Dose: 2 tab Admin: 01/24/18 21:26 Dose: 2 tab Admin: 01/24/18 16:52 Dose: 1 tab Admin: 01/23/18 09:43 Dose: 2 tab Admin: 01/22/18 09:18 Dose: 2 tab Admin: 01/21/18 15:20 Dose: 2 tab Admin: 01/21/18 07:33 Dose: 2 tab Admin: 01/21/18 00:05 Dose: 2 tab Albuterol (Proventil Neb Soln) 2.5 mg NEB Q2H PRN PRN Reason: Shortness Of Breath/wheezing Albuterol/Ipratropium (Duoneb 3.0-0.5 Mg/3 Ml) 3 ml NEB Q4H PRN PRN Reason: Shortness Of Breath/wheezing Artificial Tears (Isopto Tears 0.5% Ophth Soln) 0 ml EYEBOTH BID [facility] Last Admin: 02/02/18 08:15 Dose: 1 drop Admin: 02/01/18 20:50 Dose: 1 drop Admin: 02/01/18 14:02 Dose: 1 drop Admin: 01/31/18 21:24 Dose: 1 drop Admin: 01/31/18 10:36 Dose: 1 drop Admin: 01/30/18 21:54 Dose: 1 drop Admin: 01/30/18 08:49 Dose: 1 drop Admin: 01/29/18 20:56 Dose: 1 drop Admin: 01/29/18 08:55 Dose: 1 drop Admin: 01/28/18 22:20 Dose: 1 drop Admin: 01/28/18 08:37 Dose: 1 drop Admin: 01/27/18 21:43 Dose: 1 drop Admin: 01/27/18 10:12 Dose: 1 drop Admin: 01/26/18 21:09 Dose: 1 drop Admin: 01/26/18 09:48 Dose: 1 drop Admin: 01/25/18 20:55 Dose: 1 drop Admin: 01/25/18 08:00 Dose: 1 drop Admin: 01/24/18 21:25 Dose: 1 drop Admin: 01/24/18 09:27 Dose: 1 drop Admin: 01/23/18 20:07 Dose: 1 drop Admin: 01/23/18 09:19 Dose: 1 drop Admin: 01/22/18 20:37 Dose: 2 drop Admin: 01/22/18 09:34 Dose: 1 drop Admin: 01/21/18 20:36 Dose: 1 drop Admin: 01/21/18 08:11 Dose: 1 drop Admin: 01/20/18 20:47 Dose: 1 drop Admin: 01/20/18 09:37 Dose: 1 drop Admin: 01/19/18 20:00 Dose: 1 drop Bisacodyl (Dulcolax) 5 mg PO DAILY PRN PRN Reason: Constipation Last Admin: 01/22/18 09:35 Dose: 5 mg Clonidine HCl (Catapres) 0.3 mg PO BID [facility] Last Admin: 02/02/18 08:14 Dose: 0.3 mg Admin: 02/01/18 20:50 Dose: 0.3 mg Admin: 02/01/18 09:34 Dose: 0.3 mg Admin: 01/31/18 21:21 Dose: 0.3 mg Admin: 01/31/18 10:31 Dose: 0.3 mg Admin: 01/30/18 21:55 Dose: 0.3 mg Admin: 01/30/18 08:50 Dose: 0.3 mg Admin: 01/29/18 20:55 Dose: 0.3 mg Admin: 01/29/18 08:55 Dose: 0.3 mg Admin: 01/28/18 22:18 Dose: 0.3 mg Admin: 01/28/18 08:33 Dose: 0.3 mg Admin: 01/27/18 21:44 Dose: 0.3 mg Admin: 01/27/18 10:22 Dose: 0.3 mg Admin: 01/26/18 21:09 Dose: 0.3 mg Admin: 01/26/18 09:43 Dose: 0.3 mg Admin: 01/25/18 20:50 Dose: 0.3 mg Admin: 01/25/18 08:01 Dose: 0.3 mg Admin: 01/24/18 21:27 Dose: 0.3 mg Admin: 01/24/18 09:32 Dose: 0.3 mg Admin: 01/23/18 20:06 Dose: 0.3 mg Admin: 01/23/18 09:20 Dose: 0.3 mg Admin: 01/22/18 20:35 Dose: 0.3 mg Admin: 01/22/18 09:34 Dose: 0.3 mg Cyclobenzaprine HCl (Flexeril) 10 mg PO TID PRN PRN Reason: Muscle Spasm Last Admin: 01/23/18 09:43 Dose: 10 mg Admin: 01/22/18 09:20 Dose: 10 mg Admin: 01/21/18 16:57 Dose: 10 mg Admin: 01/21/18 05:28 Dose: 10 mg Admin: 01/20/18 02:56 Dose: 10 mg Admin: 01/19/18 19:02 Dose: 10 mg Dextrose/Water (Dextrose 50% In Water) 50 ml IVPUSH ASDIRECTED PRN PRN Reason: Hypoglycemia Diphenhydramine HCl (Benadryl) 25 mg IVPUSH Q6H PRN PRN Reason: Pruritis Last Admin: 01/20/18 23:35 Dose: 25 mg Docusate Sodium (Colace) 100 mg PO BID PRN PRN Reason: Constipation Docusate Sodium (Colace) 100 mg PO BID [facility] Last Admin: 02/02/18 08:15 Dose: 100 mg Admin: 02/01/18 20:51 Dose: 100 mg Admin: 02/01/18 09:38 Dose: 100 mg Admin: 01/31/18 21:22 Dose: 100 mg Admin: 01/31/18 10:36 Dose: 100 mg Admin: 01/30/18 21:55 Dose: 100 mg Admin: 01/30/18 08:53 Dose: 100 mg Admin: 01/29/18 20:54 Dose: 100 mg Admin: 01/29/18 08:55 Dose: 100 mg Admin: 01/28/18 22:00 Dose: 100 mg Admin: 01/28/18 08:33 Dose: 100 mg Admin: 01/27/18 21:40 Dose: 100 mg Admin: 01/27/18 10:08 Dose: 100 mg Admin: 01/26/18 21:11 Dose: 100 mg Admin: 01/26/18 09:38 Dose: 100 mg Admin: 01/25/18 20:49 Dose: 100 mg Admin: 01/25/18 08:02 Dose: 100 mg Admin: 01/24/18 21:29 Dose: 100 mg Admin: 01/24/18 09:27 Dose: 100 mg Admin: 01/23/18 20:07 Dose: 100 mg Admin: 01/23/18 09:23 Dose: 100 mg Admin: 01/22/18 20:36 Dose: 100 mg Admin: 01/22/18 09:34 Dose: 100 mg Admin: 01/21/18 20:34 Dose: 100 mg Admin: 01/21/18 08:10 Dose: 100 mg Admin: 01/20/18 20:46 Dose: 100 mg Enoxaparin Sodium (Lovenox) 40 mg SUBCUT DAILY [facility] Last Admin: 02/02/18 08:16 Dose: 40 mg Admin: 02/01/18 09:39 Dose: 40 mg Admin: 01/31/18 10:36 Dose: 40 mg Admin: 01/30/18 08:49 Dose: 40 mg Admin: 01/29/18 08:55 Dose: 40 mg Admin: 01/28/18 08:36 Dose: 40 mg Admin: 01/27/18 10:10 Dose: 40 mg Admin: 01/26/18 09:46 Dose: 40 mg Admin: 01/25/18 08:01 Dose: 40 mg Admin: 01/24/18 09:29 Dose: 40 mg Admin: 01/23/18 09:24 Dose: 40 mg Admin: 01/22/18 09:36 Dose: 40 mg Admin: 01/21/18 08:11 Dose: 40 mg Famotidine (Pepcid) 20 mg PO DAILY [facility] Last Admin: 02/02/18 08:14 Dose: 20 mg Admin: 02/01/18 09:34 Dose: 20 mg Admin: 01/31/18 10:31 Dose: 20 mg Admin: 01/30/18 08:53 Dose: 20 mg Admin: 01/29/18 08:55 Dose: 20 mg Admin: 01/28/18 08:34 Dose: 20 mg Admin: 01/27/18 10:07 Dose: 20 mg Admin: 01/26/18 09:44 Dose: 20 mg Admin: 01/25/18 08:01 Dose: 20 mg Admin: 01/24/18 09:27 Dose: 20 mg Admin: 01/23/18 09:20 Dose: 20 mg Admin: 01/22/18 09:35 Dose: 20 mg Furosemide (Lasix) 40 mg PO DAILY [facility] Last Admin: 02/02/18 08:15 Dose: 40 mg Admin: 02/01/18 09:34 Dose: 40 mg Admin: 01/31/18 10:31 Dose: 40 mg Admin: 01/30/18 08:54 Dose: 40 mg Admin: 01/29/18 08:55 Dose: 40 mg Admin: 01/28/18 08:33 Dose: 40 mg Admin: 01/27/18 10:09 Dose: 40 mg Admin: 01/26/18 09:44 Dose: 40 mg Admin: 01/25/18 08:01 Dose: 40 mg Admin: 01/24/18 09:28 Dose: 40 mg Admin: 01/23/18 09:23 Dose: 40 mg Admin: 01/22/18 09:35 Dose: 40 mg Admin: 01/21/18 08:10 Dose: 40 mg Hydralazine HCl (Apresoline) 20 mg IVPUSH Q6H PRN PRN Reason: Hypertension Last Admin: 01/23/18 02:14 Dose: 20 mg Admin: 01/20/18 08:57 Dose: 20 mg Admin: 01/19/18 17:28 Dose: 20 mg Hydromorphone HCl (Dilaudid) 0.5 mg IVPUSH Q4H PRN PRN Reason: Pain Last Admin: 01/22/18 22:28 Dose: 0.5 mg Admin: 01/21/18 18:07 Dose: 0.5 mg Admin: 01/21/18 13:22 Dose: 0.5 mg Admin: 01/19/18 21:15 Dose: 0.5 mg Insulin Aspart (Novolog) 0 unit SUBCUT QIDACANDBED [facility]; Protocol Last Admin: 02/02/18 08:11 Dose: 1 unit Admin: 02/01/18 22:15 Dose: 1 unit Admin: 02/01/18 16:27 Dose: 1 unit Admin: 02/01/18 13:24 Dose: Not Given Admin: 02/01/18 07:35 Dose: 1 unit Admin: 01/31/18 22:15 Dose: 1 unit Admin: 01/31/18 17:16 Dose: Not Given Admin: 01/31/18 11:48 Dose: Not Given Admin: 01/31/18 08:30 Dose: 1 unit Admin: 01/30/18 22:03 Dose: 1 unit Admin: 01/30/18 17:37 Dose: Not Given Admin: 01/30/18 11:49 Dose: Not Given Admin: 01/30/18 06:32 Dose: Not Given Admin: 01/29/18 21:11 Dose: 1 unit Admin: 01/29/18 18:17 Dose: 1 unit Admin: 01/29/18 13:37 Dose: Not Given Admin: 01/29/18 08:55 Dose: 1 unit Admin: 01/28/18 22:20 Dose: 1 unit Admin: 01/28/18 17:05 Dose: 1 unit Admin: 01/28/18 11:23 Dose: Admin: 01/28/18 08:35 Dose: 1 unit Admin: 01/27/18 22:21 Dose: 1 unit Admin: 01/27/18 17:18 Dose: Not Given Admin: 01/27/18 11:53 Dose: 1 unit Admin: 01/27/18 10:10 Dose: 1 unit Admin: 01/26/18 21:31 Dose: 2 unit Admin: 01/26/18 17:40 Dose: 1 unit Admin: 01/26/18 11:27 Dose: 1 unit Admin: 01/26/18 09:34 Dose: 1 unit Admin: 01/25/18 21:06 Dose: 2 unit Admin: 01/25/18 17:25 Dose: 1 unit Admin: 01/25/18 14:51 Dose: Not Given Admin: 01/25/18 06:08 Dose: Not Given Admin: 01/24/18 21:30 Dose: 1 unit Admin: 01/24/18 16:52 Dose: 1 unit Admin: 01/24/18 12:01 Dose: Not Given Admin: 01/24/18 06:22 Dose: 1 unit Admin: 01/23/18 23:22 Dose: 1 unit Admin: 01/23/18 17:15 Dose: Not Given Admin: 01/23/18 11:56 Dose: 1 unit Admin: 01/23/18 06:31 Dose: 1 unit Admin: 01/22/18 22:22 Dose: 1 unit Admin: 01/22/18 16:43 Dose: Not Given Admin: 01/22/18 11:44 Dose: 2 unit Admin: 01/22/18 06:15 Dose: Not Given Admin: 01/21/18 21:20 Dose: 1 unit Admin: 01/21/18 16:56 Dose: 1 unit Admin: 01/21/18 11:14 Dose: 1 unit Admin: 01/21/18 06:07 Dose: Not Given Admin: 01/20/18 22:07 Dose: 1 unit Admin: 01/20/18 17:58 Dose: Not Given Admin: 01/20/18 12:02 Dose: Not Given Admin: 01/20/18 07:33 Dose: Admin: 01/19/18 21:10 Dose: Admin: 01/19/18 17:54 Dose: Not Given Levothyroxine Sodium (Synthroid) 100 mcg PO DAILY@0600 [facility] Last Admin: 02/02/18 06:12 Dose: 100 mcg Admin: 02/01/18 06:34 Dose: 100 mcg Admin: 01/31/18 06:13 Dose: 100 mcg Admin: 01/30/18 05:06 Dose: 100 mcg Admin: 01/29/18 05:38 Dose: 100 mcg Admin: 01/28/18 06:16 Dose: 100 mcg Admin: 01/27/18 05:58 Dose: 100 mcg Admin: 01/26/18 06:35 Dose: 100 mcg Admin: 01/25/18 05:41 Dose: 100 mcg Admin: 01/24/18 06:22 Dose: 100 mcg Admin: 01/23/18 05:41 Dose: 100 mcg Admin: 01/22/18 06:04 Dose: 100 mcg Admin: 01/21/18 05:28 Dose: 100 mcg Admin: 01/20/18 06:35 Dose: 100 mcg Admin: 01/19/18 14:19 Dose: 100 mcg Losartan Potassium (Cozaar) 100 mg PO BEDTIME [facility] Last Admin: 02/01/18 20:51 Dose: 100 mg Admin: 01/31/18 21:24 Dose: 100 mg Admin: 01/30/18 21:59 Dose: 100 mg Admin: 01/29/18 20:55 Dose: 100 mg Admin: 01/28/18 22:00 Dose: 100 mg Admin: 01/27/18 21:44 Dose: 100 mg Admin: 01/26/18 21:12 Dose: 100 mg Admin: 01/25/18 20:49 Dose: 100 mg Admin: 01/24/18 21:28 Dose: 100 mg Admin: 01/23/18 20:09 Dose: 100 mg Admin: 01/22/18 20:36 Dose: 100 mg Magnesium Hydroxide (Milk Of Magnesia) 30 ml PO Q12H PRN PRN Reason: Constipation Last Admin: 01/31/18 04:01 Dose: 30 ml Admin: 01/22/18 18:14 Dose: 30 ml Memantine (Namenda) 5 mg PO DAILY [facility] Last Admin: 02/02/18 08:14 Dose: 5 mg Admin: 02/01/18 09:39 Dose: 5 mg Admin: 01/31/18 10:30 Dose: 5 mg Admin: 01/30/18 08:53 Dose: 5 mg Admin: 01/29/18 08:55 Dose: 5 mg Admin: 01/28/18 08:34 Dose: 5 mg Admin: 01/27/18 10:06 Dose: 5 mg Admin: 01/26/18 09:42 Dose: 5 mg Admin: 01/25/18 08:02 Dose: 5 mg Admin: 01/24/18 09:28 Dose: 5 mg Admin: 01/23/18 09:23 Dose: 5 mg Admin: 01/22/18 09:36 Dose: 5 mg Admin: 01/21/18 08:10 Dose: 5 mg Admin: 01/20/18 09:37 Dose: 5 mg Admin: 01/19/18 14:19 Dose: 5 mg Metformin HCl (Glucophage) 500 mg PO BIDMEALS [facility] Metoprolol Succinate (Toprol Xl) 25 mg PO DAILY [facility] Last Admin: 02/02/18 08:15 Dose: 25 mg Admin: 02/01/18 09:38 Dose: 25 mg Admin: 01/31/18 10:35 Dose: 25 mg Admin: 01/30/18 08:53 Dose: 25 mg Admin: 01/29/18 08:55 Dose: 25 mg Admin: 01/28/18 08:34 Dose: 25 mg Admin: 01/27/18 10:21 Dose: 25 mg Admin: 01/26/18 09:37 Dose: 25 mg Admin: 01/25/18 08:01 Dose: 25 mg Admin: 01/24/18 09:31 Dose: 25 mg Admin: 01/23/18 09:23 Dose: 25 mg Admin: 01/22/18 09:35 Dose: 25 mg Metoprolol Tartrate (Lopressor) 5 mg IVPUSH Q4H PRN PRN Reason: Hypertension Last Admin: 01/21/18 09:45 Dose: 5 mg Admin: 01/19/18 18:03 Dose: 5 mg Miscellaneous Information (Remove Patch) 1 ea TRDERM Q7D [facility] Naloxone HCl (Narcan) 0.1 mg IVPUSH Q5M PRN PRN Reason: Oversedation Ondansetron HCl (Zofran) 4 mg IVPUSH Q4H PRN PRN Reason: Nausea/Vomiting Last Admin: 01/20/18 23:35 Dose: 4 mg Admin: 01/20/18 16:53 Dose: 4 mg Admin: 01/19/18 21:15 Dose: 4 mg Admin: 01/19/18 13:10 Dose: 4 mg Oral Electrolytes (Thermotabs) 1 each PO TIDMEALS [facility] Last Admin: 02/02/18 08:14 Dose: 1 each Admin: 02/01/18 16:27 Dose: 1 each Admin: 02/01/18 13:56 Dose: 1 each Imatinib Mesylate [ (Gleevec] 600 Mg) 0 each PO DAILY [facility] Last Admin: 02/02/18 08:16 Dose: 1 each Admin: 02/01/18 09:38 Dose: 600 each Admin: 01/31/18 10:36 Dose: 600 each Admin: 01/30/18 08:54 Dose: 600 each Admin: 01/29/18 08:55 Dose: 600 each Admin: 01/28/18 08:38 Dose: 600 each Admin: 01/27/18 10:26 Dose: 600 each Admin: 01/26/18 09:46 Dose: 600 each Admin: 01/25/18 08:03 Dose: 600 each Admin: 01/24/18 09:29 Dose: 600 each Admin: 01/23/18 09:26 Dose: 600 each Admin: 01/22/18 09:38 Dose: 600 each Admin: 01/21/18 08:12 Dose: 600 each Admin: 01/20/18 09:38 Dose: 600 each Loxapine 50 Mg 0 each PO BEDTIME [facility] Last Admin: 02/01/18 20:52 Dose: 2 each Admin: 01/31/18 21:27 Dose: 2 each Admin: 01/30/18 21:59 Dose: 1 each Admin: 01/29/18 20:56 Dose: 2 each Admin: 01/28/18 22:00 Dose: 50 each Admin: 01/27/18 21:44 Dose: 50 each Admin: 01/26/18 21:12 Dose: 50 each Admin: 01/25/18 20:51 Dose: 1 each Admin: 01/24/18 21:29 Dose: 50 each Admin: 01/23/18 20:10 Dose: 50 each Admin: 01/22/18 20:38 Dose: 50 each Admin: 01/21/18 20:37 Dose: 50 each Admin: 01/20/18 20:46 Dose: 50 each Admin: 01/19/18 20:03 Dose: 50 each Loxapine 25 Mg 0 each PO DAILY@1800 [facility] Last Admin: 02/01/18 18:06 Dose: 1 each Admin: 01/31/18 17:24 Dose: 1 each Admin: 01/30/18 17:36 Dose: 1 each Admin: 01/29/18 18:17 Dose: 1 each Admin: 01/28/18 17:05 Dose: 1 each Admin: 01/27/18 18:03 Dose: 1 each Admin: 01/26/18 17:32 Dose: 1 each Admin: 01/25/18 17:26 Dose: 1 each Admin: 01/24/18 19:27 Dose: 1 each Admin: 01/24/18 18:45 Dose: Admin: 01/23/18 18:36 Dose: 1 each Admin: 01/22/18 18:13 Dose: 1 each Admin: 01/21/18 18:08 Dose: 1 each Admin: 01/20/18 18:03 Dose: 1 each Admin: 01/19/18 17:40 Dose: 25 each Polyethylene Glycol (Miralax) 17 gm PO DAILY PRN PRN Reason: Constipation Last Admin: 02/01/18 06:34 Dose: 17 gm Senna/Docusate Sodium (Senna Plus) 1 tab PO BID PRN PRN Reason: Constipation Last Admin: 01/30/18 08:50 Dose: 1 tab Simvastatin (Zocor) 10 mg PO BEDTIME [facility] Last Admin: 02/01/18 20:51 Dose: 10 mg Admin: 01/31/18 21:25 Dose: 10 mg Admin: 01/30/18 21:55 Dose: 10 mg Admin: 01/29/18 20:56 Dose: 10 mg Admin: 01/28/18 22:00 Dose: 10 mg Admin: 01/27/18 21:41 Dose: 10 mg Admin: 01/26/18 21:11 Dose: 10 mg Admin: 01/25/18 20:49 Dose: 10 mg Admin: 01/24/18 21:29 Dose: 10 mg Admin: 01/23/18 20:06 Dose: 10 mg Admin: 01/22/18 20:36 Dose: 10 mg Admin: 01/21/18 20:34 Dose: 10 mg Admin: 01/20/18 20:46 Dose: 10 mg Admin: 01/19/18 20:01 Dose: 10 mg Sodium Chloride (Saline Flush) 10 ml FLUSH ONETIME PRN PRN Reason: IV FLUSH Last Admin: 01/21/18 18:06 Dose: 10 ml Admin: 01/19/18 15:49 Dose: 10 ml Spironolactone (Aldactone) 25 mg PO DAILY [facility] Last Admin: 02/02/18 08:15 Dose: 25 mg Admin: 02/01/18 09:38 Dose: 25 mg Admin: 01/31/18 10:35 Dose: 25 mg Admin: 01/30/18 08:54 Dose: 25 mg Admin: 01/29/18 08:55 Dose: 25 mg Admin: 01/28/18 08:34 Dose: 25 mg Admin: 01/27/18 10:10 Dose: 25 mg Admin: 01/26/18 09:40 Dose: 25 mg Admin: 01/25/18 08:01 Dose: 25 mg Admin: 01/24/18 09:27 Dose: 25 mg Admin: 01/23/18 09:23 Dose: 25 mg Admin: 01/22/18 09:35 Dose: 25 mg Admin: 01/21/18 08:10 Dose: 25 mg Admin: 01/20/18 09:37 Dose: 25 mg Temazepam (Restoril) 15 mg PO BEDTIME [facility] Last Admin: 02/01/18 20:51 Dose: 15 mg Admin: 01/31/18 21:21 Dose: 15 mg Admin: 01/30/18 21:59 Dose: 15 mg Admin: 01/29/18 20:54 Dose: 15 mg Admin: 01/28/18 22:00 Dose: 15 mg Admin: 01/27/18 21:40 Dose: 15 mg Admin: 01/26/18 21:11 Dose: 15 mg Admin: 01/25/18 20:50 Dose: 15 mg Admin: 01/24/18 22:40 Dose: Not Given Tramadol HCl (Ultram) 50 mg PO Q8H [facility] Last Admin: 02/02/18 03:57 Dose: 50 mg Admin: 02/01/18 20:52 Dose: 50 mg Admin: 02/01/18 13:56 Dose: 50 mg Admin: 02/01/18 02:28 Dose: 50 mg Admin: 01/31/18 18:11 Dose: 50 mg Admin: 01/31/18 10:35 Dose: 50 mg Admin: 01/31/18 04:01 Dose: 50 mg Admin: 01/30/18 18:43 Dose: 50 mg Admin: 01/30/18 11:48 Dose: 50 mg Admin: 01/30/18 05:05 Dose: 50 mg Admin: 01/29/18 18:18 Dose: 50 mg Admin: 01/29/18 13:30 Dose: 50 mg Admin: 01/29/18 03:42 Dose: 50 mg Admin: 01/28/18 18:29 Dose: 50 mg Admin: 01/28/18 12:03 Dose: 50 mg Admin: 01/28/18 03:55 Dose: 50 mg Admin: 01/27/18 18:02 Dose: 50 mg Admin: 01/27/18 10:18 Dose: 50 mg Admin: 01/27/18 03:04 Dose: 50 mg Admin: 01/26/18 18:08 Dose: 50 mg Admin: 01/26/18 11:26 Dose: 50 mg Admin: 01/26/18 02:24 Dose: 50 mg Admin: 01/25/18 20:50 Dose: 50 mg Admin: 01/25/18 14:41 Dose: 50 mg Admin: 01/25/18 03:40 Dose: 50 mg Admin: 01/24/18 18:44 Dose: 50 mg Admin: 01/24/18 11:59 Dose: 50 mg Admin: 01/24/18 02:02 Dose: 50 mg Admin: 01/23/18 18:36 Dose: 50 mg Admin: 01/23/18 11:56 Dose: 50 mg Admin: 01/23/18 02:14 Dose: 50 mg Admin: 01/22/18 18:13 Dose: 50 mg Admin: 01/22/18 11:43 Dose: 50 mg Admin: 01/22/18 02:55 Dose: 50 mg Admin: 01/21/18 20:37 Dose: 50 mg Admin: 01/21/18 11:02 Dose: 50 mg Admin: 01/21/18 04:20 Dose: 50 mg Admin: 01/20/18 18:03 Dose: 50 mg Admin: 01/20/18 10:33 Dose: 50 mg Admin: 01/20/18 02:56 Dose: 50 mg Admin: 01/19/18 18:04 Dose: 50 mg Admin: 01/19/18 11:17 Dose: 50 mg Trazodone HCl (Trazodone) 100 mg PO BEDTIME [facility] Last Admin: 02/01/18 20:51 Dose: 100 mg Admin: 01/31/18 21:22 Dose: 100 mg Admin: 01/30/18 21:59 Dose: 100 mg Admin: 01/29/18 20:55 Dose: 100 mg Admin: 01/28/18 22:00 Dose: 100 mg Admin: 01/27/18 21:40 Dose: 100 mg Admin: 01/26/18 21:10 Dose: 100 mg Admin: 01/25/18 20:50 Dose: 100 mg Admin: 01/24/18 21:33 Dose: 100 mg Admin: 01/23/18 20:06 Dose: 100 mg Admin: 01/22/18 20:35 Dose: 100 mg Admin: 01/21/18 20:35 Dose: 100 mg Admin: 01/20/18 20:46 Dose: 100 mg Admin: 01/19/18 20:01 Dose: 100 mg - Assessment Assessment (Free Text/Narrative):: POD#13 - s/p IM nail placement for left subtroch femur fracture - Plan Plan (Free Text/Narrative):: 1. Will obtain f/u femur films today. 2. Nurse to remove arden today. 3. Continue with other orders per Hospitalist service. The pt's case was discussed with Dr. Lanza.
--- NOTE | 2018-02-02 10:33 | CR ---
Left femur: Two views of the left femur were obtained. Comparison: Prior femur study of 01/20/18. Fracture is again noted within the proximal diaphysis of the femur. Intramedullary paul is in place. Skin arden are present. Vascular calcification is noted. No callus is seen. Impression: 1. Stable femoral fracture with intramedullary paul. 2. Other incidental findings. No callus is seen. Diagnostic code #2
--- NOTE | 2018-02-02 12:32 | PCM.PN ---
- General Info Date of Service: 02/02/18 Functional Status: Reports: Pain Controlled, Tolerating Diet, Ambulating, Urinating - Review of Systems General: Reports: No Symptoms HEENT: Reports: No Symptoms Pulmonary: Reports: No Symptoms Cardiovascular: Reports: No Symptoms Gastrointestinal: Reports: No Symptoms Genitourinary: Reports: No Symptoms Musculoskeletal: Reports: No Symptoms Skin: Reports: No Symptoms Neurological: Reports: No Symptoms Psychiatric: Reports: No Symptoms - Patient Data Vitals - Most Recent: Last Vital Signs Temp 36.9 C 02/02/18 07:50 Pulse 72 02/02/18 08:15 Resp 16 02/02/18 07:50 BP 123/53 L 02/02/18 08:15 Pulse Ox 98 02/02/18 07:50 Weight - Most Recent: 82.645 kg I&O - Last 24 Hours: Intake & Output 02/01/18 02/02/18 02/02/18 22:59 06:59 14:59 Intake Total 1200 400 Output Total 2100 800 Balance -900 -400 Lab Results Last 24 Hours: Laboratory Results - last 24 hr 02/01/18 02/01/18 02/02/18 Range/Units 16:25 20:48 05:40 WBC 6.80 (3.98-10.04) K/mm3 RBC 2.94 L (3.98-5.22) M/mm3 Hgb 9.6 L (11.2-15.7) gm/L Hct 29.9 L (34.1-44.9) % MCV 101.7 H (79.4-94.8) fl MCH 32.7 H (25.6-32.2) pg MCHC 32.1 L (32.2-35.5) g/dl RDW Std Deviation 63.0 H (36.4-46.3) fL Plt Count 307 (182-369) K/mm3 MPV 9.4 (9.4-12.3) fl Neut % (Auto) 61.9 (34.0-71.1) % Lymph % (Auto) 23.1 (19.3-51.7) % Addison % (Auto) 9.4 (4.7-12.5) % Eos % (Auto) 4.9 (0.7-5.8) Baso % (Auto) 0.6 (0.1-1.2) % Neut # (Auto) 4.21 (1.56-6.13) K/mm3 Lymph # (Auto) 1.57 (1.18-3.74) K/mm3 Addison # (Auto) 0.64 H (0.24-0.36) K/mm3 Eos # (Auto) 0.33 (0.04-0.36) K/mm3 Baso # (Auto) 0.04 (0.01-0.08) K/mm3 Sodium (136-145) mEq/L Potassium (3.5-5.1) mEq/L Chloride (98-107) mEq/L Carbon Dioxide (21-32) mEq/L Anion Gap (5-15) BUN (7-18) mg/dL Creatinine (0.55-1.02) mg/dL Est Cr Clr Drug Dosing mL/min Estimated GFR (MDRD) (>60) mL/min BUN/Creatinine Ratio (14-18) Glucose (80-115) mg/dL POC Glucose 181 H 191 H (80-115) mg/dL Calcium (8.5-10.1) mg/dL Magnesium (1.8-2.4) mg/dl C-Reactive Protein (<1.0) mg/dL 02/02/18 02/02/18 02/02/18 Range/Units 05:40 06:21 10:53 WBC (3.98-10.04) K/mm3 RBC (3.98-5.22) M/mm3 Hgb (11.2-15.7) gm/L Hct (34.1-44.9) % MCV (79.4-94.8) fl MCH (25.6-32.2) pg MCHC (32.2-35.5) g/dl RDW Std Deviation (36.4-46.3) fL Plt Count (182-369) K/mm3 MPV (9.4-12.3) fl Neut % (Auto) (34.0-71.1) % Lymph % (Auto) (19.3-51.7) % Addison % (Auto) (4.7-12.5) % Eos % (Auto) (0.7-5.8) Baso % (Auto) (0.1-1.2) % Neut # (Auto) (1.56-6.13) K/mm3 Lymph # (Auto) (1.18-3.74) K/mm3 Addison # (Auto) (0.24-0.36) K/mm3 Eos # (Auto) (0.04-0.36) K/mm3 Baso # (Auto) (0.01-0.08) K/mm3 Sodium 133 L (136-145) mEq/L Potassium 4.1 (3.5-5.1) mEq/L Chloride 102 (98-107) mEq/L Carbon Dioxide 25 (21-32) mEq/L Anion Gap 10.1 (5-15) BUN 26 H (7-18) mg/dL Creatinine 1.0 (0.55-1.02) mg/dL Est Cr Clr Drug Dosing 41.90 mL/min Estimated GFR (MDRD) 56 (>60) mL/min BUN/Creatinine Ratio 26.0 H (14-18) Glucose 174 H (80-115) mg/dL POC Glucose 163 H 143 H (80-115) mg/dL Calcium 8.2 L (8.5-10.1) mg/dL Magnesium 2.0 (1.8-2.4) mg/dl C-Reactive Protein 0.4 (<1.0) mg/dL Med Orders - Current: Current Medications Acetaminophen (Tylenol) 650 mg PO Q6H PRN PRN Reason: Pain/Fever Last Admin: 01/20/18 08:27 Dose: 650 mg Hydrocodone Bitart/Acetaminophen (Pritchett 325-5 Mg) 1 - 2 tab PO Q4H PRN PRN Reason: Pain Last Admin: 01/31/18 11:51 Dose: 1 tab Albuterol (Proventil Neb Soln) 2.5 mg NEB Q2H PRN PRN Reason: Shortness Of Breath/wheezing Albuterol/Ipratropium (Duoneb 3.0-0.5 Mg/3 Ml) 3 ml NEB Q4H PRN PRN Reason: Shortness Of Breath/wheezing Artificial Tears (Isopto Tears 0.5% Ophth Soln) 0 ml EYEBOTH BID [facility] Last Admin: 02/02/18 08:15 Dose: 1 drop Bisacodyl (Dulcolax) 5 mg PO DAILY PRN PRN Reason: Constipation Last Admin: 01/22/18 09:35 Dose: 5 mg Clonidine HCl (Catapres) 0.3 mg PO BID [facility] Last Admin: 02/02/18 08:14 Dose: 0.3 mg Cyclobenzaprine HCl (Flexeril) 10 mg PO TID PRN PRN Reason: Muscle Spasm Last Admin: 01/23/18 09:43 Dose: 10 mg Dextrose/Water (Dextrose 50% In Water) 50 ml IVPUSH ASDIRECTED PRN PRN Reason: Hypoglycemia Diphenhydramine HCl (Benadryl) 25 mg IVPUSH Q6H PRN PRN Reason: Pruritis Last Admin: 01/20/18 23:35 Dose: 25 mg Docusate Sodium (Colace) 100 mg PO BID PRN PRN Reason: Constipation Docusate Sodium (Colace) 100 mg PO BID [facility] Last Admin: 02/02/18 08:15 Dose: 100 mg Enoxaparin Sodium (Lovenox) 40 mg SUBCUT DAILY [facility] Last Admin: 02/02/18 08:16 Dose: 40 mg Famotidine (Pepcid) 20 mg PO DAILY [facility] Last Admin: 02/02/18 08:14 Dose: 20 mg Furosemide (Lasix) 40 mg PO DAILY [facility] Last Admin: 02/02/18 08:15 Dose: 40 mg Hydralazine HCl (Apresoline) 20 mg IVPUSH Q6H PRN PRN Reason: Hypertension Last Admin: 01/23/18 02:14 Dose: 20 mg Hydromorphone HCl (Dilaudid) 0.5 mg IVPUSH Q4H PRN PRN Reason: Pain Last Admin: 01/22/18 22:28 Dose: 0.5 mg Insulin Aspart (Novolog) 0 unit SUBCUT QIDACANDBED [facility]; Protocol Last Admin: 02/02/18 11:13 Dose: Not Given Levothyroxine Sodium (Synthroid) 100 mcg PO DAILY@0600 [facility] Last Admin: 02/02/18 06:12 Dose: 100 mcg Losartan Potassium (Cozaar) 100 mg PO BEDTIME [facility] Last Admin: 02/01/18 20:51 Dose: 100 mg Magnesium Hydroxide (Milk Of Magnesia) 30 ml PO Q12H PRN PRN Reason: Constipation Last Admin: 01/31/18 04:01 Dose: 30 ml Memantine (Namenda) 5 mg PO DAILY [facility] Last Admin: 02/02/18 08:14 Dose: 5 mg Metformin HCl (Glucophage) 500 mg PO BIDMEALS [facility] Metoprolol Succinate (Toprol Xl) 25 mg PO DAILY [facility] Last Admin: 02/02/18 08:15 Dose: 25 mg Metoprolol Tartrate (Lopressor) 5 mg IVPUSH Q4H PRN PRN Reason: Hypertension Last Admin: 01/21/18 09:45 Dose: 5 mg Miscellaneous Information (Remove Patch) 1 ea TRDERM Q7D [facility] Naloxone HCl (Narcan) 0.1 mg IVPUSH Q5M PRN PRN Reason: Oversedation Ondansetron HCl (Zofran) 4 mg IVPUSH Q4H PRN PRN Reason: Nausea/Vomiting Last Admin: 01/20/18 23:35 Dose: 4 mg Oral Electrolytes (Thermotabs) 1 each PO TIDMEALS [facility] Last Admin: 02/02/18 11:10 Dose: 1 each Imatinib Mesylate [ (Gleevec] 600 Mg) 0 each PO DAILY [facility] Last Admin: 02/02/18 08:16 Dose: 1 each Loxapine 50 Mg 0 each PO BEDTIME [facility] Last Admin: 02/01/18 20:52 Dose: 2 each Loxapine 25 Mg 0 each PO DAILY@1800 [facility] Last Admin: 02/01/18 18:06 Dose: 1 each Polyethylene Glycol (Miralax) 17 gm PO DAILY PRN PRN Reason: Constipation Last Admin: 02/01/18 06:34 Dose: 17 gm Senna/Docusate Sodium (Senna Plus) 1 tab PO BID PRN PRN Reason: Constipation Last Admin: 01/30/18 08:50 Dose: 1 tab Simvastatin (Zocor) 10 mg PO BEDTIME [facility] Last Admin: 02/01/18 20:51 Dose: 10 mg Sodium Chloride (Saline Flush) 10 ml FLUSH ONETIME PRN PRN Reason: IV FLUSH Last Admin: 01/21/18 18:06 Dose: 10 ml Spironolactone (Aldactone) 25 mg PO DAILY [facility] Last Admin: 02/02/18 08:15 Dose: 25 mg Temazepam (Restoril) 15 mg PO BEDTIME [facility] Last Admin: 02/01/18 20:51 Dose: 15 mg Tramadol HCl (Ultram) 50 mg PO Q8H [facility] Last Admin: 02/02/18 11:10 Dose: 50 mg Trazodone HCl (Trazodone) 100 mg PO BEDTIME [facility] Last Admin: 02/01/18 20:51 Dose: 100 mg Discontinued Medications Albuterol (Proventil Neb Soln) 2.5 mg NEB ONETIME ONE Stop: 01/20/18 13:58 Last Admin: 01/20/18 19:13 Dose: Not Given Artificial Tears (Isopto Tears 0.5% Ophth Soln) 0 ml EYEBOTH BID [facility] Last Admin: 01/19/18 15:00 Dose: Not Given Artificial Tears (Isopto Tears 0.5% Ophth Soln) 0 ml EYEBOTH BID [facility] Last Admin: 01/19/18 14:20 Dose: 1 drop Bisacodyl (Dulcolax) 10 mg RECTAL ONETIME ONE Stop: 01/23/18 06:12 Last Admin: 01/23/18 06:25 Dose: 10 mg Bupivacaine HCl (Sensorcaine-Mpf 0.75%) Confirm Administered Dose 30 ml .ROUTE .STK-MED ONE Stop: 01/20/18 11:45 Bupivacaine HCl (Marcaine 0.25%) Confirm Administered Dose 30 ml .ROUTE .STK- MED ONE Stop: 01/20/18 12:15 Last Admin: 01/20/18 13:48 Dose: 30 ml Cefazolin Sodium (Ancef) Confirm Administered Dose 2 gm .ROUTE .STK-MED ONE Stop: 01/20/18 11:46 Clonidine HCl (Catapres) 0.3 mg PO BID [facility] Clonidine HCl (Catapres) 0.1 mg PO ONETIME ONE Stop: 01/19/18 19:38 Last Admin: 01/19/18 19:59 Dose: 0.1 mg Clonidine HCl (Catapres) 0.1 mg PO Q8H [facility] Last Admin: 01/22/18 04:14 Dose: 0.1 mg Clonidine HCl (Catapres-Tts 3) 0.3 mg TRDERM Q7D ONE Stop: 01/27/18 22:01 Last Admin: 01/27/18 22:21 Dose: 0.3 mg Dextrose (Glutose 15) 15 gm PO ASDIRECTED PRN PRN Reason: LOW BS Famotidine (Pepcid) 20 mg PO BID [facility] Last Admin: 01/19/18 13:10 Dose: 20 mg Famotidine (Pepcid) 20 mg PO Q12H [facility] Last Admin: 01/20/18 17:13 Dose: Not Given Famotidine (Pepcid) 20 mg PO BID@0600,1800 [facility] Last Admin: 01/21/18 05:28 Dose: 20 mg Fentanyl (Sublimaze) Confirm Administered Dose 100 mcg .ROUTE .STK-MED ONE Stop: 01/20/18 11:46 Fentanyl (Sublimaze) 50 mcg IVPUSH Q5M PRN PRN Reason: Pain Furosemide (Lasix) 40 mg PO TID [facility] Last Admin: 01/19/18 14:19 Dose: 40 mg Furosemide (Lasix) 40 mg PO TID [facility] Furosemide (Lasix) 40 mg PO DAILY [facility] Furosemide (Lasix) 40 mg IVPUSH NOW ONE Stop: 01/20/18 05:01 Last Admin: 01/20/18 06:00 Dose: 40 mg Furosemide (Lasix) 40 mg IVPUSH ONETIME ONE Stop: 01/21/18 12:01 Last Admin: 01/21/18 13:27 Dose: 40 mg Hydromorphone HCl (Dilaudid) 1 mg IVPUSH ONETIME ONE Stop: 01/19/18 05:25 Last Admin: 01/19/18 05:48 Dose: 1 mg Hydromorphone HCl (Dilaudid) 0.5 mg IVPUSH ONETIME ONE Stop: 01/19/18 07:33 Last Admin: 01/19/18 07:53 Dose: 0.5 mg Hydromorphone HCl (Dilaudid) 0.5 mg IM ONETIME ONE Stop: 01/21/18 13:18 Last Admin: 01/21/18 13:15 Dose: Not Given Sodium Chloride (Normal Saline) 1,000 mls @ 250 mls/hr IV ASDIRECTED [facility] Last Admin: 01/19/18 05:47 Dose: 250 mls/hr Lactated Ringer's (Ringers, Lactated) 1,000 mls @ 125 mls/hr IV ASDIRECTED [facility] Last Infusion: 01/20/18 12:30 Dose: 0 mls/hr Vancomycin HCl 1 gm/ Sodium (Chloride) 250 mls @ 250 mls/hr IV ONETIME ONE Stop: 01/20/18 14:14 Last Admin: 01/20/18 19:13 Dose: Not Given Sodium Chloride (Normal Saline) Confirm Administered Dose 100 mls @ as directed .ROUTE .STK-MED ONE Stop: 01/20/18 14:00 Lactated Ringer's (Ringers, Lactated) Confirm Administered Dose 1,000 mls @ as directed .ROUTE .STK-MED ONE Stop: 01/20/18 14:49 Lactated Ringer's (Ringers, Lactated) Confirm Administered Dose 1,000 mls @ as directed .ROUTE .STK-MED ONE Stop: 01/20/18 14:49 Cefazolin Sodium/Dextrose 2 gm (/ Premix) 50 mls @ 100 mls/hr IV Q8H [facility] Stop: 01/21/18 12:29 Last Admin: 01/21/18 11:04 Dose: 100 mls/hr Sodium Chloride (Normal Saline) 500 mls @ 75 mls/hr IV ONETIME ONE Stop: 01/21/18 17:39 Last Admin: 01/21/18 11:44 Dose: 75 mls/hr Iopamidol (Isovue-300 (61%)) 100 ml IVPUSH ONETIME ONE Stop: 01/19/18 15:46 Last Admin: 01/19/18 15:49 Dose: 100 ml Ketamine HCl (Ketalar) Confirm Administered Dose 500 mg .ROUTE .STK-MED ONE Stop: 01/20/18 11:47 Ketorolac Tromethamine (Toradol) 15 mg IVPUSH Q6H [facility] Stop: 01/20/18 17:01 Last Admin: 01/20/18 18:02 Dose: 15 mg Levothyroxine Sodium (Synthroid) 100 mcg PO DAILY [facility] Last Admin: 01/22/18 09:41 Dose: Not Given Lidocaine HCl (Xylocaine-Mpf 1%) Confirm Administered Dose 5 ml .ROUTE .STK-MED ONE Stop: 01/20/18 12:33 Losartan Potassium (Cozaar) 100 mg PO DAILY [facility] Last Admin: 01/19/18 14:19 Dose: 100 mg Metoprolol Succinate (Toprol Xl) 25 mg PO DAILY [facility] Last Admin: 01/19/18 14:14 Dose: 25 mg Midazolam HCl (Versed 1 Mg/Ml) Confirm Administered Dose 2 mg .ROUTE .STK-MED ONE Stop: 01/20/18 11:46 Midazolam HCl (Versed 1 Mg/Ml) Confirm Administered Dose 2 mg .ROUTE .STK-MED ONE Stop: 01/20/18 13:28 Morphine Sulfate (Duramorph Pf) Confirm Administered Dose 1 mg .ROUTE .STK-MED ONE Stop: 01/20/18 12:28 Naloxone HCl (Narcan) 0.5 mg IVPUSH ONETIME ONE Stop: 01/19/18 17:04 Last Admin: 01/19/18 17:28 Dose: 0.5 mg Non-Formulary Medication (Acetaminophen) 650 mg PO Q8H PRN PRN Reason: Pain Ondansetron HCl (Zofran) 4 mg IVPUSH ONETIME ONE Stop: 01/19/18 05:25 Last Admin: 01/19/18 05:47 Dose: 4 mg Ondansetron HCl (Zofran) 4 mg IVPUSH ONETIME PRN PRN Reason: Nausea/Vomiting Ondansetron HCl (Zofran) Confirm Administered Dose 4 mg .ROUTE .STK-MED ONE Stop: 01/20/18 14:49 Pantoprazole Sodium (Protonix Iv) 40 mg IVPUSH DAILY [facility] Pantoprazole Sodium (Protonix Iv) 40 mg IVPUSH BID [facility] Last Admin: 01/20/18 09:37 Dose: 40 mg Loxapine 25 Mg 0 each PO DAILY@1400 [facility] Last Admin: 01/19/18 15:00 Dose: Not Given Phenylephrine HCl (Rodney-Synephrine) Confirm Administered Dose 10 mg .ROUTE .STK- MED ONE Stop: 01/20/18 14:00 Phenylephrine HCl (Phenylephrine In Ns 100 Mcg/Ml) Confirm Administered Dose 1 mg .ROUTE .STK-MED ONE Stop: 01/20/18 14:01 Propofol (Diprivan 20 Ml) Confirm Administered Dose 600 mg .ROUTE .STK-MED ONE Stop: 01/20/18 11:46 Temazepam (Restoril) 30 mg PO BEDTIME [facility] Temazepam (Restoril) 7.5 mg PO BEDTIME [facility] Last Admin: 01/24/18 21:26 Dose: 7.5 mg Temazepam (Restoril) 7.5 mg PO ONETIME ONE Stop: 01/24/18 22:03 Last Admin: 01/24/18 22:40 Dose: 7.5 mg - Exam Quality Assessment: DVT Prophylaxis General: Alert, Oriented, Cooperative, No Acute Distress HEENT: Pupils Equal, Pupils Reactive, EOMI Neck: Supple, Trachea Midline, No JVD Lungs: Normal Respiratory Effort Cardiovascular: Regular Rate, Regular Rhythm GI/Abdominal Exam: Normal Bowel Sounds, Soft, Non-Tender, No Organomegaly, No Distention (Female) Exam: Deferred Back Exam: Normal Inspection Extremities: Normal Inspection, Normal Capillary Refill Skin: Warm Neurological: No New Focal Deficit Psy/Mental Status: Alert, Normal Affect, Normal Mood - Problem List Review Problem List Initiated/Reviewed/Updated: Yes - My Orders Last 24 Hours: My Active Orders 02/03/18 22:15 Remove Patch 1 ea TRDERM Q7D - Plan Plan:: I/P: Acute: Fracture of proximal end of femur, s/p fall ; POD 13: IM paul placement for left femoral shaft fracture, Stable -Pain controlled -Stable condition -Pain medication PRN -Bedrest, PT/OT after surgery--> walking now with PT/OT -Continue supportive care HTN -Labile -Continue current BP regimen -PRN BP meds as needed Hyponatremia -Na 130--> 129 -Dietary consult for hyponatremia -Thermotabs 1 tab pos TID meals Resolved: S/p Hyperemesis--resolved -Risk factor: chemotherapy -Zofran Q4H -IV lactated ringers Chronic: Anemia, Thrombocytopenia- improving -RBC 2.96-->2.74-->2.95-->3.03, Hgb 9.4-->8.9-->9.4,-->9.8 HCT 28.7-->26.8--> 29.3, -->30.7, RDW 51.8-->52.4-->53.8-->59.5 -Plt 173-->180-->208-->279 -Monitor -Blood Type and Screen ordered -Replenish with PRBCs as needed CKD stage III, improving -eGFR 47-->50-->46-->42-->56 -Creatinine 1.7-->1.1-->1.2-->1.3-->1.0 -NS IV started in ED--> D/C and start LR IV--> D/C -Defer to PCP for f/u Diabetes Type II -Blood Glucose Checks QID -Continue at home Metformin 500mg -Sliding scale Insulin -A1C 5.0 -ADA diet after surgery -Defer to PCP for f/u CHF, improving -BNP 236-->1891-->1366-->2548-->2782-->1166-->722-->647-->533 -Continue at home Lasix 40mg TID -Monitor Traumatic Brain Injury Leukemia --> Continue at home Gleevec 600mg here Plan: She remains clinically stable and has been ambulating well with PT/OT Routine AM labs Continue PT/OT Ortho following Encourage patient to ambulate as much as she can CM/SW for discharge planning DVT Prophylaxis: SCD/Lovenox SubQ Ready to D/C pending SNF placement for rehabilitation--> Gleevec is causing issues with placement Code Status: Full code (CPR, Defib, Intubation)- However "No life sustaining treatment on machines" -per Sister Beti, Power of Sales Agent [employer] PCP: Dr. Cespedes Placement still pending. CM to discuss wheelchair eligibility with patients. Patient continues to improve, however placement has been difficult to impossible with the current restrictions by CMS.
[2018-02-02] MEDS: LOXAPINE 25 MG PO SCH (18:08)
[2018-02-02] MEDS: Losartan 100 MG Tab PO SCH (21:04)
[2018-02-02] MEDS: Simvastatin 10 MG Tab PO SCH (21:04)
[2018-02-02] MEDS: traZODone 50 MG Tab PO SCH (21:04)
[2018-02-02] MEDS: Temazepam 15 MG Cap PO SCH (21:04)
[2018-02-03] MEDS: traMADol 50 MG Tab PO SCH ×3 (03:35→18:00)
[2018-02-03] MEDS: Levothyroxine 100 MCG Tab PO SCH (06:20)
[2018-02-03] MEDS: Potassium Chloride/Sodium Chloride Tab PO SCH ×3 (06:20→17:57)
[2018-02-03] MEDS: Hypromellose 0.5% Ophth Soln 15 ML Bottle EYEBOTH SCH ×2 (08:10→21:40)
[2018-02-03] MEDS: Enoxaparin 40 MG/0.4 ML Syringe SUBCUT SCH (08:10)
[2018-02-03] MEDS: Insulin Aspart 100 Units/ML 3 ML Pen SUBCUT SCH ×4 (08:10→21:37)
[2018-02-03] MEDS: Spironolactone 25 MG Tab PO SCH (08:11)
[2018-02-03] MEDS: Memantine 10 MG Tab PO SCH (08:11)
[2018-02-03] MEDS: cloNIDine 0.1 MG Tab PO SCH ×2 (08:11→21:35)
[2018-02-03] MEDS: Famotidine 20 MG Tab PO SCH (08:11)
[2018-02-03] MEDS: Metoprolol Succinate 25 MG Tab.ER PO SCH (08:11)
[2018-02-03] MEDS: Docusate Sodium 100 MG Cap PO SCH ×2 (08:12→21:36)
[2018-02-03] MEDS: IMATINIB MESYLATE 600 MG PO SCH (08:12)
[2018-02-03] MEDS: Furosemide 40 MG Tab PO SCH (08:12)
--- NOTE | 2018-02-03 15:35 | PCM.PN ---
- General Info Date of Service: 02/03/18 Functional Status: Reports: Pain Controlled, Tolerating Diet, Urinating - Review of Systems General: Reports: No Symptoms HEENT: Reports: No Symptoms Pulmonary: Reports: No Symptoms Cardiovascular: Reports: No Symptoms Gastrointestinal: Reports: No Symptoms Genitourinary: Reports: No Symptoms Musculoskeletal: Reports: No Symptoms Skin: Reports: No Symptoms Neurological: Reports: No Symptoms Psychiatric: Reports: No Symptoms - Patient Data Vitals - Most Recent: Last Vital Signs Temp 36.5 C 02/03/18 08:08 Pulse 75 02/03/18 08:11 Resp 16 02/03/18 08:08 BP 153/45 H 02/03/18 08:11 Pulse Ox 98 02/03/18 08:08 Weight - Most Recent: 82.645 kg I&O - Last 24 Hours: Intake & Output 02/03/18 02/03/18 02/03/18 06:59 14:59 22:59 Intake Total 450 180 360 Output Total 1000 Balance -550 180 360 Lab Results Last 24 Hours: Laboratory Results - last 24 hr 02/02/18 02/02/18 02/03/18 Range/Units 16:22 20:47 06:17 POC Glucose 216 H 145 H 170 H (80-115) mg/dL 02/03/18 Range/Units 11:20 POC Glucose 134 H (80-115) mg/dL Med Orders - Current: Current Medications Acetaminophen (Tylenol) 650 mg PO Q6H PRN PRN Reason: Pain/Fever Last Admin: 01/20/18 08:27 Dose: 650 mg Hydrocodone Bitart/Acetaminophen ([place] 325-5 Mg) 1 - 2 tab PO Q4H PRN PRN Reason: Pain Last Admin: 01/31/18 11:51 Dose: 1 tab Albuterol (Proventil Neb Soln) 2.5 mg NEB Q2H PRN PRN Reason: Shortness Of Breath/wheezing Albuterol/Ipratropium (Duoneb 3.0-0.5 Mg/3 Ml) 3 ml NEB Q4H PRN PRN Reason: Shortness Of Breath/wheezing Artificial Tears (Isopto Tears 0.5% Ophth Soln) 0 ml EYEBOTH BID [facility] Last Admin: 02/03/18 08:10 Dose: 1 drop Bisacodyl (Dulcolax) 5 mg PO DAILY PRN PRN Reason: Constipation Last Admin: 01/22/18 09:35 Dose: 5 mg Clonidine HCl (Catapres) 0.3 mg PO BID [facility] Last Admin: 02/03/18 08:11 Dose: 0.3 mg Cyclobenzaprine HCl (Flexeril) 10 mg PO TID PRN PRN Reason: Muscle Spasm Last Admin: 01/23/18 09:43 Dose: 10 mg Dextrose/Water (Dextrose 50% In Water) 50 ml IVPUSH ASDIRECTED PRN PRN Reason: Hypoglycemia Diphenhydramine HCl (Benadryl) 25 mg IVPUSH Q6H PRN PRN Reason: Pruritis Last Admin: 01/20/18 23:35 Dose: 25 mg Docusate Sodium (Colace) 100 mg PO BID PRN PRN Reason: Constipation Docusate Sodium (Colace) 100 mg PO BID [facility] Last Admin: 02/03/18 08:12 Dose: 100 mg Enoxaparin Sodium (Lovenox) 40 mg SUBCUT DAILY [facility] Last Admin: 02/03/18 08:10 Dose: 40 mg Famotidine (Pepcid) 20 mg PO DAILY [facility] Last Admin: 02/03/18 08:11 Dose: 20 mg Furosemide (Lasix) 40 mg PO DAILY [facility] Last Admin: 02/03/18 08:12 Dose: 40 mg Hydralazine HCl (Apresoline) 20 mg IVPUSH Q6H PRN PRN Reason: Hypertension Last Admin: 01/23/18 02:14 Dose: 20 mg Hydromorphone HCl (Dilaudid) 0.5 mg IVPUSH Q4H PRN PRN Reason: Pain Last Admin: 01/22/18 22:28 Dose: 0.5 mg Insulin Aspart (Novolog) 0 unit SUBCUT QIDACANDBED [facility]; Protocol Last Admin: 02/03/18 11:22 Dose: Not Given Levothyroxine Sodium (Synthroid) 100 mcg PO DAILY@0600 [facility] Last Admin: 02/03/18 06:20 Dose: 100 mcg Losartan Potassium (Cozaar) 100 mg PO BEDTIME [facility] Last Admin: 02/02/18 21:04 Dose: 100 mg Magnesium Hydroxide (Milk Of Magnesia) 30 ml PO Q12H PRN PRN Reason: Constipation Last Admin: 01/31/18 04:01 Dose: 30 ml Memantine (Namenda) 5 mg PO DAILY [facility] Last Admin: 02/03/18 08:11 Dose: 5 mg Metformin HCl (Glucophage) 500 mg PO BIDMEALS [facility] Metoprolol Succinate (Toprol Xl) 25 mg PO DAILY [facility] Last Admin: 02/03/18 08:11 Dose: 25 mg Metoprolol Tartrate (Lopressor) 5 mg IVPUSH Q4H PRN PRN Reason: Hypertension Last Admin: 01/21/18 09:45 Dose: 5 mg Miscellaneous Information (Remove Patch) 1 ea TRDERM Q7D [facility] Naloxone HCl (Narcan) 0.1 mg IVPUSH Q5M PRN PRN Reason: Oversedation Ondansetron HCl (Zofran) 4 mg IVPUSH Q4H PRN PRN Reason: Nausea/Vomiting Last Admin: 01/20/18 23:35 Dose: 4 mg Oral Electrolytes (Thermotabs) 1 each PO TIDMEALS [facility] Last Admin: 02/03/18 11:22 Dose: 1 each Imatinib Mesylate [ (Gleevec] 600 Mg) 0 each PO DAILY [facility] Last Admin: 02/03/18 08:12 Dose: 1 each Loxapine 50 Mg 0 each PO BEDTIME [facility] Last Admin: 02/02/18 21:05 Dose: 50 each Loxapine 25 Mg 0 each PO DAILY@1800 [facility] Last Admin: 02/02/18 18:08 Dose: 1 each Polyethylene Glycol (Miralax) 17 gm PO DAILY PRN PRN Reason: Constipation Last Admin: 02/01/18 06:34 Dose: 17 gm Senna/Docusate Sodium (Senna Plus) 1 tab PO BID PRN PRN Reason: Constipation Last Admin: 01/30/18 08:50 Dose: 1 tab Simvastatin (Zocor) 10 mg PO BEDTIME [facility] Last Admin: 02/02/18 21:04 Dose: 10 mg Sodium Chloride (Saline Flush) 10 ml FLUSH ONETIME PRN PRN Reason: IV FLUSH Last Admin: 01/21/18 18:06 Dose: 10 ml Spironolactone (Aldactone) 25 mg PO DAILY [facility] Last Admin: 02/03/18 08:11 Dose: 25 mg Temazepam (Restoril) 15 mg PO BEDTIME [facility] Last Admin: 05/04/18 21:04 Dose: 15 mg Tramadol HCl (Ultram) 50 mg PO Q8H [facility] Last Admin: 02/03/18 11:21 Dose: 50 mg Trazodone HCl (Trazodone) 100 mg PO BEDTIME [facility] Last Admin: 02/02/18 21:04 Dose: 100 mg Discontinued Medications Albuterol (Proventil Neb Soln) 2.5 mg NEB ONETIME ONE Stop: 01/20/18 13:58 Last Admin: 01/20/18 19:13 Dose: Not Given Artificial Tears (Isopto Tears 0.5% Ophth Soln) 0 ml EYEBOTH BID [facility] Last Admin: 01/19/18 15:00 Dose: Not Given Artificial Tears (Isopto Tears 0.5% Ophth Soln) 0 ml EYEBOTH BID [facility] Last Admin: 01/19/18 14:20 Dose: 1 drop Bisacodyl (Dulcolax) 10 mg RECTAL ONETIME ONE Stop: 01/23/18 06:12 Last Admin: 01/23/18 06:25 Dose: 10 mg Bupivacaine HCl (Sensorcaine-Mpf 0.75%) Confirm Administered Dose 30 ml .ROUTE .STK-MED ONE Stop: 01/20/18 11:45 Bupivacaine HCl (Marcaine 0.25%) Confirm Administered Dose 30 ml .ROUTE .STK- MED ONE Stop: 01/20/18 12:15 Last Admin: 01/20/18 13:48 Dose: 30 ml Cefazolin Sodium (Ancef) Confirm Administered Dose 2 gm .ROUTE .STK-MED ONE Stop: 01/20/18 11:46 Clonidine HCl (Catapres) 0.3 mg PO BID [facility] Clonidine HCl (Catapres) 0.1 mg PO ONETIME ONE Stop: 01/19/18 19:38 Last Admin: 01/19/18 19:59 Dose: 0.1 mg Clonidine HCl (Catapres) 0.1 mg PO Q8H [facility] Last Admin: 01/22/18 04:14 Dose: 0.1 mg Clonidine HCl (Catapres-Tts 3) 0.3 mg TRDERM Q7D ONE Stop: 01/27/18 22:01 Last Admin: 01/27/18 22:21 Dose: 0.3 mg Dextrose (Glutose 15) 15 gm PO ASDIRECTED PRN PRN Reason: LOW BS Famotidine (Pepcid) 20 mg PO BID [facility] Last Admin: 01/19/18 13:10 Dose: 20 mg Famotidine (Pepcid) 20 mg PO Q12H [facility] Last Admin: 01/20/18 17:13 Dose: Not Given Famotidine (Pepcid) 20 mg PO BID@0600,1800 [facility] Last Admin: 01/21/18 05:28 Dose: 20 mg Fentanyl (Sublimaze) Confirm Administered Dose 100 mcg .ROUTE .STK-MED ONE Stop: 01/20/18 11:46 Fentanyl (Sublimaze) 50 mcg IVPUSH Q5M PRN PRN Reason: Pain Furosemide (Lasix) 40 mg PO TID [facility] Last Admin: 01/19/18 14:19 Dose: 40 mg Furosemide (Lasix) 40 mg PO TID [facility] Furosemide (Lasix) 40 mg PO DAILY [facility] Furosemide (Lasix) 40 mg IVPUSH NOW ONE Stop: 01/20/18 05:01 Last Admin: 01/20/18 06:00 Dose: 40 mg Furosemide (Lasix) 40 mg IVPUSH ONETIME ONE Stop: 01/21/18 12:01 Last Admin: 01/21/18 13:27 Dose: 40 mg Hydromorphone HCl (Dilaudid) 1 mg IVPUSH ONETIME ONE Stop: 01/19/18 05:25 Last Admin: 01/19/18 05:48 Dose: 1 mg Hydromorphone HCl (Dilaudid) 0.5 mg IVPUSH ONETIME ONE Stop: 01/19/18 07:33 Last Admin: 01/19/18 07:53 Dose: 0.5 mg Hydromorphone HCl (Dilaudid) 0.5 mg IM ONETIME ONE Stop: 01/21/18 13:18 Last Admin: 01/21/18 13:15 Dose: Not Given Sodium Chloride (Normal Saline) 1,000 mls @ 250 mls/hr IV ASDIRECTED [facility] Last Admin: 01/19/18 05:47 Dose: 250 mls/hr Lactated Ringer's (Ringers, Lactated) 1,000 mls @ 125 mls/hr IV ASDIRECTED [facility] Last Infusion: 01/20/18 12:30 Dose: 0 mls/hr Vancomycin HCl 1 gm/ Sodium (Chloride) 250 mls @ 250 mls/hr IV ONETIME ONE Stop: 01/20/18 14:14 Last Admin: 01/20/18 19:13 Dose: Not Given Sodium Chloride (Normal Saline) Confirm Administered Dose 100 mls @ as directed .ROUTE .STK-MED ONE Stop: 01/20/18 14:00 Lactated Ringer's (Ringers, Lactated) Confirm Administered Dose 1,000 mls @ as directed .ROUTE .STK-MED ONE Stop: 01/20/18 14:49 Lactated Ringer's (Ringers, Lactated) Confirm Administered Dose 1,000 mls @ as directed .ROUTE .STK-MED ONE Stop: 01/20/18 14:49 Cefazolin Sodium/Dextrose 2 gm (/ Premix) 50 mls @ 100 mls/hr IV Q8H [facility] Stop: 01/21/18 12:29 Last Admin: 01/21/18 11:04 Dose: 100 mls/hr Sodium Chloride (Normal Saline) 500 mls @ 75 mls/hr IV ONETIME ONE Stop: 01/21/18 17:39 Last Admin: 01/21/18 11:44 Dose: 75 mls/hr Iopamidol (Isovue-300 (61%)) 100 ml IVPUSH ONETIME ONE Stop: 01/19/18 15:46 Last Admin: 01/19/18 15:49 Dose: 100 ml Ketamine HCl (Ketalar) Confirm Administered Dose 500 mg .ROUTE .STK-MED ONE Stop: 01/20/18 11:47 Ketorolac Tromethamine (Toradol) 15 mg IVPUSH Q6H [facility] Stop: 01/20/18 17:01 Last Admin: 01/20/18 18:02 Dose: 15 mg Levothyroxine Sodium (Synthroid) 100 mcg PO DAILY [facility] Last Admin: 01/22/18 09:41 Dose: Not Given Lidocaine HCl (Xylocaine-Mpf 1%) Confirm Administered Dose 5 ml .ROUTE .STK-MED ONE Stop: 01/20/18 12:33 Losartan Potassium (Cozaar) 100 mg PO DAILY [facility] Last Admin: 01/19/18 14:19 Dose: 100 mg Metoprolol Succinate (Toprol Xl) 25 mg PO DAILY [facility] Last Admin: 01/19/18 14:14 Dose: 25 mg Midazolam HCl (Versed 1 Mg/Ml) Confirm Administered Dose 2 mg .ROUTE .STK-MED ONE Stop: 01/20/18 11:46 Midazolam HCl (Versed 1 Mg/Ml) Confirm Administered Dose 2 mg .ROUTE .STK-MED ONE Stop: 01/20/18 13:28 Morphine Sulfate (Duramorph Pf) Confirm Administered Dose 1 mg .ROUTE .STK-MED ONE Stop: 01/20/18 12:28 Naloxone HCl (Narcan) 0.5 mg IVPUSH ONETIME ONE Stop: 01/19/18 17:04 Last Admin: 01/19/18 17:28 Dose: 0.5 mg Non-Formulary Medication (Acetaminophen) 650 mg PO Q8H PRN PRN Reason: Pain Ondansetron HCl (Zofran) 4 mg IVPUSH ONETIME ONE Stop: 01/19/18 05:25 Last Admin: 01/19/18 05:47 Dose: 4 mg Ondansetron HCl (Zofran) 4 mg IVPUSH ONETIME PRN PRN Reason: Nausea/Vomiting Ondansetron HCl (Zofran) Confirm Administered Dose 4 mg .ROUTE .STK-MED ONE Stop: 01/20/18 14:49 Pantoprazole Sodium (Protonix Iv) 40 mg IVPUSH DAILY [facility] Pantoprazole Sodium (Protonix Iv) 40 mg IVPUSH BID [facility] Last Admin: 01/20/18 09:37 Dose: 40 mg Loxapine 25 Mg 0 each PO DAILY@1400 [facility] Last Admin: 01/19/18 15:00 Dose: Not Given Phenylephrine HCl (Rodney-Synephrine) Confirm Administered Dose 10 mg .ROUTE .STK- MED ONE Stop: 01/20/18 14:00 Phenylephrine HCl (Phenylephrine In Ns 100 Mcg/Ml) Confirm Administered Dose 1 mg .ROUTE .STK-MED ONE Stop: 01/20/18 14:01 Propofol (Diprivan 20 Ml) Confirm Administered Dose 600 mg .ROUTE .STK-MED ONE Stop: 01/20/18 11:46 Temazepam (Restoril) 30 mg PO BEDTIME [facility] Temazepam (Restoril) 7.5 mg PO BEDTIME [facility] Last Admin: 01/24/18 21:26 Dose: 7.5 mg Temazepam (Restoril) 7.5 mg PO ONETIME ONE Stop: 01/24/18 22:03 Last Admin: 01/24/18 22:40 Dose: 7.5 mg - Exam Quality Assessment: DVT Prophylaxis General: Alert, Oriented, Cooperative, No Acute Distress HEENT: Pupils Equal, Pupils Reactive, EOMI Neck: Trachea Midline, No JVD Lungs: Normal Respiratory Effort Cardiovascular: Regular Rate, Regular Rhythm GI/Abdominal Exam: Normal Bowel Sounds, Soft, Non-Tender, No Organomegaly, No Distention (Female) Exam: Deferred Back Exam: Normal Inspection Extremities: Normal Inspection Skin: Warm Neurological: No New Focal Deficit, Normal Speech Psy/Mental Status: Alert, Normal Affect, Normal Mood - Problem List Review Problem List Initiated/Reviewed/Updated: Yes - My Orders Last 24 Hours: My Active Orders 02/03/18 22:15 Remove Patch 1 ea TRDERM Q7D - Plan Plan:: I/P: Acute: Fracture of proximal end of femur, s/p fall ; POD 13: IM paul placement for left femoral shaft fracture, Stable -Pain controlled -Stable condition -Pain medication PRN -Bedrest, PT/OT after surgery--> walking now with PT/OT -Continue supportive care HTN -Labile -Continue current BP regimen -PRN BP meds as needed Hyponatremia -Na 130--> 129 -Dietary consult for hyponatremia -Thermotabs 1 tab pos TID meals Resolved: S/p Hyperemesis--resolved -Risk factor: chemotherapy -Zofran Q4H -IV lactated ringers Chronic: Anemia, Thrombocytopenia- improving -RBC 2.96-->2.74-->2.95-->3.03, Hgb 9.4-->8.9-->9.4,-->9.8 HCT 28.7-->26.8--> 29.3, -->30.7, RDW 51.8-->52.4-->53.8-->59.5 -Plt 173-->180-->208-->279 -Monitor -Blood Type and Screen ordered -Replenish with PRBCs as needed CKD stage III, improving -eGFR 47-->50-->46-->42-->56 -Creatinine 1.7-->1.1-->1.2-->1.3-->1.0 -NS IV started in ED--> D/C and start LR IV--> D/C -Defer to PCP for f/u Diabetes Type II -Blood Glucose Checks QID -Continue at home Metformin 500mg -Sliding scale Insulin -A1C 5.0 -ADA diet after surgery -Defer to PCP for f/u CHF, improving -BNP 236-->1891-->1366-->2548-->2782-->1166-->722-->647-->533 -Continue at home Lasix 40mg TID -Monitor Traumatic Brain Injury Leukemia --> Continue at home Gleevec 600mg here Plan: She remains clinically stable and has been ambulating well with PT/OT Routine AM labs Continue PT/OT Ortho following Encourage patient to ambulate as much as she can CM/SW for discharge planning DVT Prophylaxis: SCD/Lovenox SubQ Ready to D/C pending SNF placement for rehabilitation--> Gleevec is causing issues with placement Code Status: Full code (CPR, Defib, Intubation)- However "No life sustaining treatment on machines" -per Sister Beti, Power of [employer] PCP: Dr. Cespedes Placement still pending. CM to discuss wheelchair eligibility with patients. Patient continues to improve, however placement has been difficult to impossible with the current restrictions by CMS.
[2018-02-03] MEDS: LOXAPINE 25 MG PO SCH (17:57)
[2018-02-03] MEDS: Losartan 100 MG Tab PO SCH (21:35)
[2018-02-03] MEDS: Temazepam 15 MG Cap PO SCH (21:36)
[2018-02-03] MEDS: Simvastatin 10 MG Tab PO SCH (21:36)
[2018-02-03] MEDS: traZODone 50 MG Tab PO SCH (21:36)
[2018-02-04] MEDS: traMADol 50 MG Tab PO SCH ×3 (04:33→18:00)
[2018-02-04] MEDS: Levothyroxine 100 MCG Tab PO SCH (05:35)
[2018-02-04] MEDS: Polyethylene Glycol 3350 Powder 17 GM Packet PO PRN (05:35)
[2018-02-04] MEDS: Potassium Chloride/Sodium Chloride Tab PO SCH (06:20)
[2018-02-04] MEDS: Spironolactone 25 MG Tab PO SCH (08:25)
[2018-02-04] MEDS: Famotidine 20 MG Tab PO SCH (08:25)
[2018-02-04] MEDS: Metoprolol Succinate 25 MG Tab.ER PO SCH (08:26)
[2018-02-04] MEDS: cloNIDine 0.1 MG Tab PO SCH ×2 (08:27→20:22)
[2018-02-04] MEDS: Docusate Sodium 100 MG Cap PO SCH ×2 (08:29→20:23)
[2018-02-04] MEDS: Memantine 10 MG Tab PO SCH (08:29)
[2018-02-04] MEDS: Furosemide 40 MG Tab PO SCH (08:30)
[2018-02-04] MEDS: Insulin Aspart 100 Units/ML 3 ML Pen SUBCUT SCH ×4 (08:31→23:14)
[2018-02-04] MEDS: Enoxaparin 40 MG/0.4 ML Syringe SUBCUT SCH (08:32)
[2018-02-04] MEDS: Hypromellose 0.5% Ophth Soln 15 ML Bottle EYEBOTH SCH ×2 (08:32→20:24)
[2018-02-04] MEDS: IMATINIB MESYLATE 600 MG PO SCH (08:33)
--- NOTE | 2018-02-04 13:37 | PCM.PN ---
- General Info Date of Service: 02/04/18 Functional Status: Reports: Pain Controlled, Tolerating Diet, Urinating - Review of Systems General: Reports: No Symptoms HEENT: Reports: No Symptoms Pulmonary: Reports: No Symptoms Cardiovascular: Reports: No Symptoms Gastrointestinal: Reports: No Symptoms Genitourinary: Reports: No Symptoms Musculoskeletal: Reports: No Symptoms Skin: Reports: No Symptoms Neurological: Reports: No Symptoms Psychiatric: Reports: No Symptoms - Patient Data Vitals - Most Recent: Last Vital Signs Temp 36.6 C 02/04/18 12:16 Pulse 64 02/04/18 12:21 Resp 16 02/04/18 12:16 BP 122/70 02/04/18 12:21 Pulse Ox 100 02/04/18 12:21 Weight - Most Recent: 82.645 kg I&O - Last 24 Hours: Intake & Output 02/03/18 02/04/18 02/04/18 22:59 06:59 14:59 Intake Total 1140 350 180 Output Total 1950 900 Balance -810 -550 180 Lab Results Last 24 Hours: Laboratory Results - last 24 hr 02/03/18 02/03/18 02/04/18 Range/Units 16:53 21:34 05:34 Sodium (136-145) mEq/L Potassium (3.5-5.1) mEq/L Chloride (98-107) mEq/L Carbon Dioxide (21-32) mEq/L Anion Gap (5-15) BUN (7-18) mg/dL Creatinine (0.55-1.02) mg/dL Est Cr Clr Drug Dosing mL/min Estimated GFR (MDRD) (>60) mL/min BUN/Creatinine Ratio (14-18) Glucose (80-115) mg/dL POC Glucose 151 H 159 H 159 H (80-115) mg/dL Calcium (8.5-10.1) mg/dL 02/04/18 02/04/18 Range/Units 05:48 11:55 Sodium 136 (136-145) mEq/L Potassium 4.3 (3.5-5.1) mEq/L Chloride 104 (98-107) mEq/L Carbon Dioxide 25 (21-32) mEq/L Anion Gap 11.3 (5-15) BUN 26 H (7-18) mg/dL Creatinine 0.9 (0.55-1.02) mg/dL Est Cr Clr Drug Dosing 46.55 mL/min Estimated GFR (MDRD) > 60 (>60) mL/min BUN/Creatinine Ratio 28.9 H (14-18) Glucose 162 H (80-115) mg/dL POC Glucose 203 H (80-115) mg/dL Calcium 8.5 (8.5-10.1) mg/dL Med Orders - Current: Current Medications Acetaminophen (Tylenol) 650 mg PO Q6H PRN PRN Reason: Pain/Fever Last Admin: 01/20/18 08:27 Dose: 650 mg Hydrocodone Bitart/Acetaminophen ([place] 325-5 Mg) 1 - 2 tab PO Q4H PRN PRN Reason: Pain Last Admin: 01/31/18 11:51 Dose: 1 tab Albuterol (Proventil Neb Soln) 2.5 mg NEB Q2H PRN PRN Reason: Shortness Of Breath/wheezing Albuterol/Ipratropium (Duoneb 3.0-0.5 Mg/3 Ml) 3 ml NEB Q4H PRN PRN Reason: Shortness Of Breath/wheezing Artificial Tears (Isopto Tears 0.5% Ophth Soln) 0 ml EYEBOTH BID [facility] Last Admin: 02/04/18 08:32 Dose: 1 drop Bisacodyl (Dulcolax) 5 mg PO DAILY PRN PRN Reason: Constipation Last Admin: 01/22/18 09:35 Dose: 5 mg Clonidine HCl (Catapres) 0.3 mg PO BID [facility] Last Admin: 02/04/18 08:27 Dose: 0.3 mg Cyclobenzaprine HCl (Flexeril) 10 mg PO TID PRN PRN Reason: Muscle Spasm Last Admin: 01/23/18 09:43 Dose: 10 mg Dextrose/Water (Dextrose 50% In Water) 50 ml IVPUSH ASDIRECTED PRN PRN Reason: Hypoglycemia Diphenhydramine HCl (Benadryl) 25 mg IVPUSH Q6H PRN PRN Reason: Pruritis Last Admin: 01/20/18 23:35 Dose: 25 mg Docusate Sodium (Colace) 100 mg PO BID PRN PRN Reason: Constipation Docusate Sodium (Colace) 100 mg PO BID [facility] Last Admin: 02/04/18 08:29 Dose: 100 mg Enoxaparin Sodium (Lovenox) 40 mg SUBCUT DAILY [facility] Last Admin: 02/04/18 08:32 Dose: 40 mg Famotidine (Pepcid) 20 mg PO DAILY [facility] Last Admin: 02/04/18 08:25 Dose: 20 mg Furosemide (Lasix) 40 mg PO DAILY [facility] Last Admin: 02/04/18 08:30 Dose: 40 mg Hydralazine HCl (Apresoline) 20 mg IVPUSH Q6H PRN PRN Reason: Hypertension Last Admin: 01/23/18 02:14 Dose: 20 mg Hydromorphone HCl (Dilaudid) 0.5 mg IVPUSH Q4H PRN PRN Reason: Pain Last Admin: 01/22/18 22:28 Dose: 0.5 mg Insulin Aspart (Novolog) 0 unit SUBCUT QIDACANDBED [facility]; Protocol Last Admin: 02/04/18 12:16 Dose: 2 unit Levothyroxine Sodium (Synthroid) 100 mcg PO DAILY@0600 [facility] Last Admin: 02/04/18 05:35 Dose: 100 mcg Losartan Potassium (Cozaar) 100 mg PO BEDTIME [facility] Last Admin: 02/03/18 21:35 Dose: 100 mg Magnesium Hydroxide (Milk Of Magnesia) 30 ml PO Q12H PRN PRN Reason: Constipation Last Admin: 01/31/18 04:01 Dose: 30 ml Memantine (Namenda) 5 mg PO DAILY [facility] Last Admin: 02/04/18 08:29 Dose: 5 mg Metformin HCl (Glucophage) 500 mg PO BIDMEALS [facility] Metoprolol Succinate (Toprol Xl) 25 mg PO DAILY [facility] Last Admin: 02/04/18 08:26 Dose: 25 mg Metoprolol Tartrate (Lopressor) 5 mg IVPUSH Q4H PRN PRN Reason: Hypertension Last Admin: 01/21/18 09:45 Dose: 5 mg Miscellaneous Information (Remove Patch) 1 ea TRDERM Q7D [facility] Last Admin: 02/03/18 21:45 Dose: 1 ea Naloxone HCl (Narcan) 0.1 mg IVPUSH Q5M PRN PRN Reason: Oversedation Ondansetron HCl (Zofran) 4 mg IVPUSH Q4H PRN PRN Reason: Nausea/Vomiting Last Admin: 01/20/18 23:35 Dose: 4 mg Imatinib Mesylate [ (Gleevec] 600 Mg) 0 each PO DAILY [facility] Last Admin: 02/04/18 08:33 Dose: 1 each Loxapine 50 Mg 0 each PO BEDTIME [facility] Last Admin: 02/03/18 21:43 Dose: 50 each Loxapine 25 Mg 0 each PO DAILY@1800 [facility] Last Admin: 02/03/18 17:57 Dose: 1 each Polyethylene Glycol (Miralax) 17 gm PO DAILY PRN PRN Reason: Constipation Last Admin: 02/04/18 05:35 Dose: 17 gm Senna/Docusate Sodium (Senna Plus) 1 tab PO BID PRN PRN Reason: Constipation Last Admin: 01/30/18 08:50 Dose: 1 tab Simvastatin (Zocor) 10 mg PO BEDTIME [facility] Last Admin: 02/03/18 21:36 Dose: 10 mg Sodium Chloride (Saline Flush) 10 ml FLUSH ONETIME PRN PRN Reason: IV FLUSH Last Admin: 01/21/18 18:06 Dose: 10 ml Spironolactone (Aldactone) 25 mg PO DAILY [facility] Last Admin: 02/04/18 08:25 Dose: 25 mg Temazepam (Restoril) 15 mg PO BEDTIME [facility] Last Admin: 02/03/18 21:36 Dose: 15 mg Tramadol HCl (Ultram) 50 mg PO Q8H [facility] Last Admin: 02/04/18 12:19 Dose: 50 mg Trazodone HCl (Trazodone) 100 mg PO BEDTIME [facility] Last Admin: 02/03/18 21:36 Dose: 100 mg Discontinued Medications Albuterol (Proventil Neb Soln) 2.5 mg NEB ONETIME ONE Stop: 01/20/18 13:58 Last Admin: 01/20/18 19:13 Dose: Not Given Artificial Tears (Isopto Tears 0.5% Ophth Soln) 0 ml EYEBOTH BID [facility] Last Admin: 01/19/18 15:00 Dose: Not Given Artificial Tears (Isopto Tears 0.5% Ophth Soln) 0 ml EYEBOTH BID [facility] Last Admin: 01/19/18 14:20 Dose: 1 drop Bisacodyl (Dulcolax) 10 mg RECTAL ONETIME ONE Stop: 01/23/18 06:12 Last Admin: 01/23/18 06:25 Dose: 10 mg Bupivacaine HCl (Sensorcaine-Mpf 0.75%) Confirm Administered Dose 30 ml .ROUTE .K-MED ONE Stop: 01/20/18 11:45 Bupivacaine HCl (Marcaine 0.25%) Confirm Administered Dose 30 ml .ROUTE .STK- MED ONE Stop: 01/20/18 12:15 Last Admin: 01/20/18 13:48 Dose: 30 ml Cefazolin Sodium (Ancef) Confirm Administered Dose 2 gm .ROUTE .[facility] ONE Stop: 01/20/18 11:46 Clonidine HCl (Catapres) 0.3 mg PO BID [facility] Clonidine HCl (Catapres) 0.1 mg PO ONETIME ONE Stop: 01/19/18 19:38 Last Admin: 01/19/18 19:59 Dose: 0.1 mg Clonidine HCl (Catapres) 0.1 mg PO Q8H [facility] Last Admin: 01/22/18 04:14 Dose: 0.1 mg Clonidine HCl (Catapres-Tts 3) 0.3 mg TRDERM Q7D ONE Stop: 01/27/18 22:01 Last Admin: 01/27/18 22:21 Dose: 0.3 mg Dextrose (Glutose 15) 15 gm PO ASDIRECTED PRN PRN Reason: LOW BS Famotidine (Pepcid) 20 mg PO BID [facility] Last Admin: 01/19/18 13:10 Dose: 20 mg Famotidine (Pepcid) 20 mg PO Q12H [facility] Last Admin: 01/20/18 17:13 Dose: Not Given Famotidine (Pepcid) 20 mg PO BID@0600,1800 [facility] Last Admin: 01/21/18 05:28 Dose: 20 mg Fentanyl (Sublimaze) Confirm Administered Dose 100 mcg .ROUTE .STK-MED ONE Stop: 01/20/18 11:46 Fentanyl (Sublimaze) 50 mcg IVPUSH Q5M PRN PRN Reason: Pain Furosemide (Lasix) 40 mg PO TID [facility] Last Admin: 01/19/18 14:19 Dose: 40 mg Furosemide (Lasix) 40 mg PO TID [facility] Furosemide (Lasix) 40 mg PO DAILY [facility] Furosemide (Lasix) 40 mg IVPUSH NOW ONE Stop: 01/20/18 05:01 Last Admin: 01/20/18 06:00 Dose: 40 mg Furosemide (Lasix) 40 mg IVPUSH ONETIME ONE Stop: 01/21/18 12:01 Last Admin: 01/21/18 13:27 Dose: 40 mg Hydromorphone HCl (Dilaudid) 1 mg IVPUSH ONETIME ONE Stop: 01/19/18 05:25 Last Admin: 01/19/18 05:48 Dose: 1 mg Hydromorphone HCl (Dilaudid) 0.5 mg IVPUSH ONETIME ONE Stop: 01/19/18 07:33 Last Admin: 01/19/18 07:53 Dose: 0.5 mg Hydromorphone HCl (Dilaudid) 0.5 mg IM ONETIME ONE Stop: 01/21/18 13:18 Last Admin: 01/21/18 13:15 Dose: Not Given Sodium Chloride (Normal Saline) 1,000 mls @ 250 mls/hr IV ASDIRECTED [facility] Last Admin: 01/19/18 05:47 Dose: 250 mls/hr Lactated Ringer's (Ringers, Lactated) 1,000 mls @ 125 mls/hr IV ASDIRECTED [facility] Last Infusion: 01/20/18 12:30 Dose: 0 mls/hr Vancomycin HCl 1 gm/ Sodium (Chloride) 250 mls @ 250 mls/hr IV ONETIME ONE Stop: 01/20/18 14:14 Last Admin: 01/20/18 19:13 Dose: Not Given Sodium Chloride (Normal Saline) Confirm Administered Dose 100 mls @ as directed .ROUTE .STK-MED ONE Stop: 01/20/18 14:00 Lactated Ringer's (Ringers, Lactated) Confirm Administered Dose 1,000 mls @ as directed .ROUTE .STK-MED ONE Stop: 01/20/18 14:49 Lactated Ringer's (Ringers, Lactated) Confirm Administered Dose 1,000 mls @ as directed .ROUTE .STK-MED ONE Stop: 01/20/18 14:49 Cefazolin Sodium/Dextrose 2 gm (/ Premix) 50 mls @ 100 mls/hr IV Q8H [facility] Stop: 01/21/18 12:29 Last Admin: 01/21/18 11:04 Dose: 100 mls/hr Sodium Chloride (Normal Saline) 500 mls @ 75 mls/hr IV ONETIME ONE Stop: 01/21/18 17:39 Last Admin: 01/21/18 11:44 Dose: 75 mls/hr Iopamidol (Isovue-300 (61%)) 100 ml IVPUSH ONETIME ONE Stop: 01/19/18 15:46 Last Admin: 01/19/18 15:49 Dose: 100 ml Ketamine HCl (Ketalar) Confirm Administered Dose 500 mg .ROUTE .STK-MED ONE Stop: 01/20/18 11:47 Ketorolac Tromethamine (Toradol) 15 mg IVPUSH Q6H [facility] Stop: 01/20/18 17:01 Last Admin: 01/20/18 18:02 Dose: 15 mg Levothyroxine Sodium (Synthroid) 100 mcg PO DAILY [facility] Last Admin: 01/22/18 09:41 Dose: Not Given Lidocaine HCl (Xylocaine-Mpf 1%) Confirm Administered Dose 5 ml .ROUTE .STK-MED ONE Stop: 01/20/18 12:33 Losartan Potassium (Cozaar) 100 mg PO DAILY [facility] Last Admin: 01/19/18 14:19 Dose: 100 mg Metoprolol Succinate (Toprol Xl) 25 mg PO DAILY [facility] Last Admin: 01/19/18 14:14 Dose: 25 mg Midazolam HCl (Versed 1 Mg/Ml) Confirm Administered Dose 2 mg .ROUTE .STK-MED ONE Stop: 01/20/18 11:46 Midazolam HCl (Versed 1 Mg/Ml) Confirm Administered Dose 2 mg .ROUTE .STK-MED ONE Stop: 01/20/18 13:28 Morphine Sulfate (Duramorph Pf) Confirm Administered Dose 1 mg .ROUTE .STK-MED ONE Stop: 01/20/18 12:28 Naloxone HCl (Narcan) 0.5 mg IVPUSH ONETIME ONE Stop: 01/19/18 17:04 Last Admin: 01/19/18 17:28 Dose: 0.5 mg Non-Formulary Medication (Acetaminophen) 650 mg PO Q8H PRN PRN Reason: Pain Ondansetron HCl (Zofran) 4 mg IVPUSH ONETIME ONE Stop: 01/19/18 05:25 Last Admin: 01/19/18 05:47 Dose: 4 mg Ondansetron HCl (Zofran) 4 mg IVPUSH ONETIME PRN PRN Reason: Nausea/Vomiting Ondansetron HCl (Zofran) Confirm Administered Dose 4 mg .ROUTE .STK-MED ONE Stop: 01/20/18 14:49 Oral Electrolytes (Thermotabs) 1 each PO TIDMEALS [facility] Last Admin: 02/04/18 06:20 Dose: 1 each Pantoprazole Sodium (Protonix Iv) 40 mg IVPUSH DAILY [facility] Pantoprazole Sodium (Protonix Iv) 40 mg IVPUSH BID [facility] Last Admin: 01/20/18 09:37 Dose: 40 mg Loxapine 25 Mg 0 each PO DAILY@1400 [facility] Last Admin: 01/19/18 15:00 Dose: Not Given Phenylephrine HCl (Rodney-Synephrine) Confirm Administered Dose 10 mg .ROUTE .STK- MED ONE Stop: 01/20/18 14:00 Phenylephrine HCl (Phenylephrine In Ns 100 Mcg/Ml) Confirm Administered Dose 1 mg .ROUTE .STK-MED ONE Stop: 01/20/18 14:01 Propofol (Diprivan 20 Ml) Confirm Administered Dose 600 mg .ROUTE .STK-MED ONE Stop: 01/20/18 11:46 Temazepam (Restoril) 30 mg PO BEDTIME [facility] Temazepam (Restoril) 7.5 mg PO BEDTIME [facility] Last Admin: 01/24/18 21:26 Dose: 7.5 mg Temazepam (Restoril) 7.5 mg PO ONETIME ONE Stop: 01/24/18 22:03 Last Admin: 01/24/18 22:40 Dose: 7.5 mg - Exam Quality Assessment: DVT Prophylaxis General: Alert, Oriented, Cooperative, No Acute Distress HEENT: Pupils Equal, Pupils Reactive, EOMI Neck: Trachea Midline, No JVD Lungs: Clear to Auscultation, Normal Respiratory Effort Cardiovascular: Regular Rate, Regular Rhythm GI/Abdominal Exam: Normal Bowel Sounds, Soft, Non-Tender, No Organomegaly, No Distention (Female) Exam: Deferred Back Exam: Normal Inspection Extremities: Normal Inspection, Normal Capillary Refill Skin: Warm Wound/Incisions: Healing Well Neurological: No New Focal Deficit, Normal Speech Psy/Mental Status: Alert, Normal Affect, Normal Mood - Problem List Review Problem List Initiated/Reviewed/Updated: Yes - My Orders Last 24 Hours: My Active Orders 02/03/18 22:15 Remove Patch 1 ea TRDERM Q7D 02/05/18 05:00 CBC WITH AUTO DIFF [HEME] DAILY 02/06/18 05:00 CBC WITH AUTO DIFF [HEME] DAILY - Plan Plan:: I/P: Acute: Fracture of proximal end of femur, s/p fall ; POD 13: IM paul placement for left femoral shaft fracture, Stable -Pain controlled -Stable condition -Pain medication PRN -Bedrest, PT/OT after surgery--> walking now with PT/OT -Continue supportive care HTN -Labile -Continue current BP regimen -PRN BP meds as needed Hyponatremia -Na 130--> 129 -Dietary consult for hyponatremia -Thermotabs 1 tab pos TID meals Resolved: S/p Hyperemesis--resolved -Risk factor: chemotherapy -Zofran Q4H -IV lactated ringers Chronic: Anemia, Thrombocytopenia- improving -RBC 2.96-->2.74-->2.95-->3.03, Hgb 9.4-->8.9-->9.4,-->9.8 HCT 28.7-->26.8--> 29.3, -->30.7, RDW 51.8-->52.4-->53.8-->59.5 -Plt 173-->180-->208-->279 -Monitor -Blood Type and Screen ordered -Replenish with PRBCs as needed CKD stage III, improving -eGFR 47-->50-->46-->42-->56 -Creatinine 1.7-->1.1-->1.2-->1.3-->1.0 -NS IV started in ED--> D/C and start LR IV--> D/C -Defer to PCP for f/u Diabetes Type II -Blood Glucose Checks QID -Continue at home Metformin 500mg -Sliding scale Insulin -A1C 5.0 -ADA diet after surgery -Defer to PCP for f/u CHF, improving -BNP 236-->1891-->1366-->2548-->2782-->1166-->722-->647-->533 -Continue at home Lasix 40mg TID -Monitor Traumatic Brain Injury Leukemia --> Continue at home Gleevec 600mg here Plan: She remains clinically stable and has been ambulating well with PT/OT Routine AM labs Continue PT/OT Ortho following Encourage patient to ambulate as much as she can CM/SW for discharge planning DVT Prophylaxis: SCD/Lovenox SubQ Ready to D/C pending SNF placement for rehabilitation--> Gleevec is causing issues with placement Code Status: Full code (CPR, Defib, Intubation)- However "No life sustaining treatment on machines" -per Sister Beti, Power of Night Auditor PCP: Dr. Cespedes Placement still pending. CM to discuss wheelchair eligibility with patients. Patient continues to improve, however placement has been difficult to impossible with the current restrictions by CMS. LOS>96 hours, unable to place after ortho procedure, see previous documentation.
[2018-02-04] MEDS: LOXAPINE 25 MG PO SCH (17:58)
[2018-02-04] MEDS: Acetaminophen/HYDROcodone 325-5 MG Tab PO PRN (20:20)
[2018-02-04] MEDS: traZODone 50 MG Tab PO SCH (20:22)
[2018-02-04] MEDS: Simvastatin 10 MG Tab PO SCH (20:23)
[2018-02-04] MEDS: Temazepam 15 MG Cap PO SCH (20:23)
[2018-02-04] MEDS: Losartan 100 MG Tab PO SCH (20:23)
[2018-02-05] MEDS: traMADol 50 MG Tab PO SCH (03:19)
[2018-02-05] MEDS: Levothyroxine 100 MCG Tab PO SCH (05:40)
[2018-02-05] MEDS: Memantine 10 MG Tab PO SCH (08:09)
[2018-02-05] MEDS: Spironolactone 25 MG Tab PO SCH (08:11)
[2018-02-05] MEDS: Famotidine 20 MG Tab PO SCH (08:14)
[2018-02-05] MEDS: Docusate Sodium 100 MG Cap PO SCH (08:15)
[2018-02-05] MEDS: Metoprolol Succinate 25 MG Tab.ER PO SCH (08:16)
[2018-02-05] MEDS: cloNIDine 0.1 MG Tab PO SCH (08:17)
[2018-02-05] MEDS: IMATINIB MESYLATE 600 MG PO SCH (08:17)
[2018-02-05] MEDS: Enoxaparin 40 MG/0.4 ML Syringe SUBCUT SCH (08:19)
[2018-02-05] MEDS: Furosemide 40 MG Tab PO SCH (08:19)
[2018-02-05] MEDS: Insulin Aspart 100 Units/ML 3 ML Pen SUBCUT SCH (08:20)
[2018-02-05 08:22] VITALS: BP 149/46
[2018-02-05] MEDS: Hypromellose 0.5% Ophth Soln 15 ML Bottle EYEBOTH SCH (08:25)
--- NOTE | 2018-02-05 08:56 | PCM.PN ---
- General Info Date of Service: 02/05/18 Admission Dx/Problem (Free Text): Admission Diagnosis/Problem Admission Diagnosis/Problem Fall at home - Patient Data Vitals - Most Recent: Last Vital Signs Temp 97.3 F 02/05/18 03:04 Pulse 88 02/05/18 08:16 Resp 16 02/05/18 03:04 BP 149/46 H 02/05/18 08:17 Pulse Ox 99 02/05/18 03:04 Weight - Most Recent: 178 lb 3.2 oz I&O - Last 24 Hours: Intake & Output 02/04/18 02/05/18 02/05/18 22:59 06:59 14:59 Intake Total 1820 100 Balance 1820 100 Lab Results Last 24 Hours: Laboratory Results - last 24 hr 02/04/18 02/04/18 02/04/18 Range/Units 11:55 15:15 21:32 WBC (3.98-10.04) K/mm3 RBC (3.98-5.22) M/mm3 Hgb (11.2-15.7) gm/L Hct (34.1-44.9) % MCV (79.4-94.8) fl MCH (25.6-32.2) pg MCHC (32.2-35.5) g/dl RDW Std Deviation (36.4-46.3) fL Plt Count (182-369) K/mm3 MPV (9.4-12.3) fl Neut % (Auto) (34.0-71.1) % Lymph % (Auto) (19.3-51.7) % [place] % (Auto) (4.7-12.5) % Eos % (Auto) (0.7-5.8) Baso % (Auto) (0.1-1.2) % Neut # (Auto) (1.56-6.13) K/mm3 Lymph # (Auto) (1.18-3.74) K/mm3 [place] # (Auto) (0.24-0.36) K/mm3 Eos # (Auto) (0.04-0.36) K/mm3 Baso # (Auto) (0.01-0.08) K/mm3 POC Glucose 203 H 105 125 H (80-115) mg/dL 02/05/18 02/05/18 Range/Units 05:34 06:18 WBC 6.72 (3.98-10.04) K/mm3 RBC 3.05 L (3.98-5.22) M/mm3 Hgb 10.0 L (11.2-15.7) gm/L Hct 31.4 L (34.1-44.9) % MCV 103.0 H (79.4-94.8) fl MCH 32.8 H (25.6-32.2) pg MCHC 31.8 L (32.2-35.5) g/dl RDW Std Deviation 64.3 H (36.4-46.3) fL Plt Count 346 (182-369) K/mm3 MPV 9.3 L (9.4-12.3) fl Neut % (Auto) 66.7 (34.0-71.1) % Lymph % (Auto) 21.6 (19.3-51.7) % [place] % (Auto) 6.8 (4.7-12.5) % Eos % (Auto) 4.2 (0.7-5.8) Baso % (Auto) 0.6 (0.1-1.2) % Neut # (Auto) 4.48 (1.56-6.13) K/mm3 Lymph # (Auto) 1.45 (1.18-3.74) K/mm3 [place] # (Auto) 0.46 H (0.24-0.36) K/mm3 Eos # (Auto) 0.28 (0.04-0.36) K/mm3 Baso # (Auto) 0.04 (0.01-0.08) K/mm3 POC Glucose 183 H (80-115) mg/dL Med Orders - Current: Current Medications Acetaminophen (Tylenol) 650 mg PO Q6H PRN PRN Reason: Pain/Fever Last Admin: 01/20/18 08:27 Dose: 650 mg Hydrocodone Bitart/Acetaminophen (Wright 325-5 Mg) 1 - 2 tab PO Q4H PRN PRN Reason: Pain Last Admin: 02/04/18 20:20 Dose: 1 tab Albuterol (Proventil Neb Soln) 2.5 mg NEB Q2H PRN PRN Reason: Shortness Of Breath/wheezing Artificial Tears (Isopto Tears 0.5% Ophth Soln) 0 ml EYEBOTH BID [facility] Last Admin: 02/05/18 08:25 Dose: 1 drop Bisacodyl (Dulcolax) 5 mg PO DAILY PRN PRN Reason: Constipation Last Admin: 01/22/18 09:35 Dose: 5 mg Clonidine HCl (Catapres) 0.3 mg PO BID [facility] Last Admin: 02/05/18 08:17 Dose: 0.3 mg Cyclobenzaprine HCl (Flexeril) 10 mg PO TID PRN PRN Reason: Muscle Spasm Last Admin: 01/23/18 09:43 Dose: 10 mg Dextrose/Water (Dextrose 50% In Water) 50 ml IVPUSH ASDIRECTED PRN PRN Reason: Hypoglycemia Diphenhydramine HCl (Benadryl) 25 mg IVPUSH Q6H PRN PRN Reason: Pruritis Last Admin: 01/20/18 23:35 Dose: 25 mg Docusate Sodium (Colace) 100 mg PO BID PRN PRN Reason: Constipation Docusate Sodium (Colace) 100 mg PO BID [facility] Last Admin: 02/05/18 08:15 Dose: 100 mg Enoxaparin Sodium (Lovenox) 40 mg SUBCUT DAILY [facility] Last Admin: 02/05/18 08:19 Dose: 40 mg Famotidine (Pepcid) 20 mg PO DAILY [facility] Last Admin: 02/05/18 08:14 Dose: 20 mg Furosemide (Lasix) 40 mg PO DAILY [facility] Last Admin: 02/05/18 08:19 Dose: 40 mg Hydralazine HCl (Apresoline) 20 mg IVPUSH Q6H PRN PRN Reason: Hypertension Last Admin: 01/23/18 02:14 Dose: 20 mg Hydromorphone HCl (Dilaudid) 0.5 mg IVPUSH Q4H PRN PRN Reason: Pain Last Admin: 01/22/18 22:28 Dose: 0.5 mg Insulin Aspart (Novolog) 0 unit SUBCUT QIDACANDBED [facility]; Protocol Last Admin: 02/05/18 08:20 Dose: 1 unit Levothyroxine Sodium (Synthroid) 100 mcg PO DAILY@0600 [facility] Last Admin: 02/05/18 05:40 Dose: 100 mcg Losartan Potassium (Cozaar) 100 mg PO BEDTIME [facility] Last Admin: 02/04/18 20:23 Dose: 100 mg Magnesium Hydroxide (Milk Of Magnesia) 30 ml PO Q12H PRN PRN Reason: Constipation Last Admin: 01/31/18 04:01 Dose: 30 ml Memantine (Namenda) 5 mg PO DAILY [facility] Last Admin: 02/05/18 08:09 Dose: 5 mg Metformin HCl (Glucophage) 500 mg PO BIDMEALS [facility] Metoprolol Succinate (Toprol Xl) 25 mg PO DAILY [facility] Last Admin: 02/05/18 08:16 Dose: 25 mg Metoprolol Tartrate (Lopressor) 5 mg IVPUSH Q4H PRN PRN Reason: Hypertension Last Admin: 01/21/18 09:45 Dose: 5 mg Miscellaneous Information (Remove Patch) 1 ea TRDERM Q7D [facility] Last Admin: 02/03/18 21:45 Dose: 1 ea Naloxone HCl (Narcan) 0.1 mg IVPUSH Q5M PRN PRN Reason: Oversedation Ondansetron HCl (Zofran) 4 mg IVPUSH Q4H PRN PRN Reason: Nausea/Vomiting Last Admin: 01/20/18 23:35 Dose: 4 mg Imatinib Mesylate [ (Gleevec] 600 Mg) 0 each PO DAILY [facility] Last Admin: 02/05/18 08:17 Dose: 1 each Loxapine 50 Mg 0 each PO BEDTIME [facility] Last Admin: 02/04/18 20:24 Dose: 2 each Loxapine 25 Mg 0 each PO DAILY@1800 [facility] Last Admin: 02/04/18 17:58 Dose: 1 each Polyethylene Glycol (Miralax) 17 gm PO DAILY PRN PRN Reason: Constipation Last Admin: 02/04/18 05:35 Dose: 17 gm Senna/Docusate Sodium (Senna Plus) 1 tab PO BID PRN PRN Reason: Constipation Last Admin: 01/30/18 08:50 Dose: 1 tab Simvastatin (Zocor) 10 mg PO BEDTIME [facility] Last Admin: 02/04/18 20:23 Dose: 10 mg Sodium Chloride (Saline Flush) 10 ml FLUSH ONETIME PRN PRN Reason: IV FLUSH Last Admin: 01/21/18 18:06 Dose: 10 ml Spironolactone (Aldactone) 25 mg PO DAILY [facility] Last Admin: 02/05/18 08:11 Dose: 25 mg Temazepam (Restoril) 15 mg PO BEDTIME [facility] Last Admin: 02/04/18 20:23 Dose: 15 mg Tramadol HCl (Ultram) 50 mg PO Q8H [facility] Last Admin: 02/05/18 03:19 Dose: 50 mg Trazodone HCl (Trazodone) 100 mg PO BEDTIME [facility] Last Admin: 02/04/18 20:22 Dose: 100 mg Discontinued Medications Albuterol (Proventil Neb Soln) 2.5 mg NEB ONETIME ONE Stop: 01/20/18 13:58 Last Admin: 01/20/18 19:13 Dose: Not Given Albuterol/Ipratropium (Duoneb 3.0-0.5 Mg/3 Ml) 3 ml NEB Q4H PRN PRN Reason: Shortness Of Breath/wheezing Artificial Tears (Isopto Tears 0.5% Ophth Soln) 0 ml EYEBOTH BID [facility] Last Admin: 01/19/18 15:00 Dose: Not Given Artificial Tears (Isopto Tears 0.5% Ophth Soln) 0 ml EYEBOTH BID [facility] Last Admin: 01/19/18 14:20 Dose: 1 drop Bisacodyl (Dulcolax) 10 mg RECTAL ONETIME ONE Stop: 01/23/18 06:12 Last Admin: 01/23/18 06:25 Dose: 10 mg Bupivacaine HCl (Sensorcaine-Mpf 0.75%) Confirm Administered Dose 30 ml .ROUTE .STK-MED ONE Stop: 01/20/18 11:45 Bupivacaine HCl (Marcaine 0.25%) Confirm Administered Dose 30 ml .ROUTE .STK- MED ONE Stop: 01/20/18 12:15 Last Admin: 01/20/18 13:48 Dose: 30 ml Cefazolin Sodium (Ancef) Confirm Administered Dose 2 gm .ROUTE .STK-MED ONE Stop: 01/20/18 11:46 Clonidine HCl (Catapres) 0.3 mg PO BID [facility] Clonidine HCl (Catapres) 0.1 mg PO ONETIME ONE Stop: 01/19/18 19:38 Last Admin: 01/19/18 19:59 Dose: 0.1 mg Clonidine HCl (Catapres) 0.1 mg PO Q8H [facility] Last Admin: 01/22/18 04:14 Dose: 0.1 mg Clonidine HCl (Catapres-Tts 3) 0.3 mg TRDERM Q7D ONE Stop: 01/27/18 22:01 Last Admin: 01/27/18 22:21 Dose: 0.3 mg Dextrose (Glutose 15) 15 gm PO ASDIRECTED PRN PRN Reason: LOW BS Famotidine (Pepcid) 20 mg PO BID [facility] Last Admin: 01/19/18 13:10 Dose: 20 mg Famotidine (Pepcid) 20 mg PO Q12H [facility] Last Admin: 01/20/18 17:13 Dose: Not Given Famotidine (Pepcid) 20 mg PO BID@0600,1800 [facility] Last Admin: 01/21/18 05:28 Dose: 20 mg Fentanyl (Sublimaze) Confirm Administered Dose 100 mcg .ROUTE .STK-MED ONE Stop: 01/20/18 11:46 Fentanyl (Sublimaze) 50 mcg IVPUSH Q5M PRN PRN Reason: Pain Furosemide (Lasix) 40 mg PO TID [facility] Last Admin: 01/19/18 14:19 Dose: 40 mg Furosemide (Lasix) 40 mg PO TID [facility] Furosemide (Lasix) 40 mg PO DAILY [facility] Furosemide (Lasix) 40 mg IVPUSH NOW ONE Stop: 01/20/18 05:01 Last Admin: 01/20/18 06:00 Dose: 40 mg Furosemide (Lasix) 40 mg IVPUSH ONETIME ONE Stop: 01/21/18 12:01 Last Admin: 01/21/18 13:27 Dose: 40 mg Hydromorphone HCl (Dilaudid) 1 mg IVPUSH ONETIME ONE Stop: 01/19/18 05:25 Last Admin: 01/19/18 05:48 Dose: 1 mg Hydromorphone HCl (Dilaudid) 0.5 mg IVPUSH ONETIME ONE Stop: 01/19/18 07:33 Last Admin: 01/19/18 07:53 Dose: 0.5 mg Hydromorphone HCl (Dilaudid) 0.5 mg IM ONETIME ONE Stop: 01/21/18 13:18 Last Admin: 01/21/18 13:15 Dose: Not Given Sodium Chloride (Normal Saline) 1,000 mls @ 250 mls/hr IV ASDIRECTED [facility] Last Admin: 01/19/18 05:47 Dose: 250 mls/hr Lactated Ringer's (Ringers, Lactated) 1,000 mls @ 125 mls/hr IV ASDIRECTED [facility] Last Infusion: 01/20/18 12:30 Dose: 0 mls/hr Vancomycin HCl 1 gm/ Sodium (Chloride) 250 mls @ 250 mls/hr IV ONETIME ONE Stop: 01/20/18 14:14 Last Admin: 01/20/18 19:13 Dose: Not Given Sodium Chloride (Normal Saline) Confirm Administered Dose 100 mls @ as directed .ROUTE .STK-MED ONE Stop: 01/20/18 14:00 Lactated Ringer's (Ringers, Lactated) Confirm Administered Dose 1,000 mls @ as directed .ROUTE .STK-MED ONE Stop: 01/20/18 14:49 Lactated Ringer's (Ringers, Lactated) Confirm Administered Dose 1,000 mls @ as directed .ROUTE .STK-MED ONE Stop: 01/20/18 14:49 Cefazolin Sodium/Dextrose 2 gm (/ Premix) 50 mls @ 100 mls/hr IV Q8H [facility] Stop: 01/21/18 12:29 Last Admin: 01/21/18 11:04 Dose: 100 mls/hr Sodium Chloride (Normal Saline) 500 mls @ 75 mls/hr IV ONETIME ONE Stop: 01/21/18 17:39 Last Admin: 01/21/18 11:44 Dose: 75 mls/hr Iopamidol (Isovue-300 (61%)) 100 ml IVPUSH ONETIME ONE Stop: 01/19/18 15:46 Last Admin: 01/19/18 15:49 Dose: 100 ml Ketamine HCl (Ketalar) Confirm Administered Dose 500 mg .ROUTE .STK-MED ONE Stop: 01/20/18 11:47 Ketorolac Tromethamine (Toradol) 15 mg IVPUSH Q6H [facility] Stop: 01/20/18 17:01 Last Admin: 01/20/18 18:02 Dose: 15 mg Levothyroxine Sodium (Synthroid) 100 mcg PO DAILY [facility] Last Admin: 01/22/18 09:41 Dose: Not Given Lidocaine HCl (Xylocaine-Mpf 1%) Confirm Administered Dose 5 ml .ROUTE .STK-MED ONE Stop: 01/20/18 12:33 Losartan Potassium (Cozaar) 100 mg PO DAILY [facility] Last Admin: 01/19/18 14:19 Dose: 100 mg Metoprolol Succinate (Toprol Xl) 25 mg PO DAILY [facility] Last Admin: 01/19/18 14:14 Dose: 25 mg Midazolam HCl (Versed 1 Mg/Ml) Confirm Administered Dose 2 mg .ROUTE .STK-MED ONE Stop: 01/20/18 11:46 Midazolam HCl (Versed 1 Mg/Ml) Confirm Administered Dose 2 mg .ROUTE .STK-MED ONE Stop: 01/20/18 13:28 Morphine Sulfate (Duramorph Pf) Confirm Administered Dose 1 mg .ROUTE .STK-MED ONE Stop: 01/20/18 12:28 Naloxone HCl (Narcan) 0.5 mg IVPUSH ONETIME ONE Stop: 01/19/18 17:04 Last Admin: 01/19/18 17:28 Dose: 0.5 mg Non-Formulary Medication (Acetaminophen) 650 mg PO Q8H PRN PRN Reason: Pain Ondansetron HCl (Zofran) 4 mg IVPUSH ONETIME ONE Stop: 01/19/18 05:25 Last Admin: 01/19/18 05:47 Dose: 4 mg Ondansetron HCl (Zofran) 4 mg IVPUSH ONETIME PRN PRN Reason: Nausea/Vomiting Ondansetron HCl (Zofran) Confirm Administered Dose 4 mg .ROUTE .STK-MED ONE Stop: 01/20/18 14:49 Oral Electrolytes (Thermotabs) 1 each PO TIDMEALS [facility] Last Admin: 02/04/18 06:20 Dose: 1 each Pantoprazole Sodium (Protonix Iv) 40 mg IVPUSH DAILY [facility] Pantoprazole Sodium (Protonix Iv) 40 mg IVPUSH BID [facility] Last Admin: 01/20/18 09:37 Dose: 40 mg Loxapine 25 Mg 0 each PO DAILY@1400 [facility] Last Admin: 01/19/18 15:00 Dose: Not Given Phenylephrine HCl (Rodney-Synephrine) Confirm Administered Dose 10 mg .ROUTE .STK- MED ONE Stop: 01/20/18 14:00 Phenylephrine HCl (Phenylephrine In Ns 100 Mcg/Ml) Confirm Administered Dose 1 mg .ROUTE .STK-MED ONE Stop: 01/20/18 14:01 Propofol (Diprivan 20 Ml) Confirm Administered Dose 600 mg .ROUTE .STK-MED ONE Stop: 01/20/18 11:46 Temazepam (Restoril) 30 mg PO BEDTIME [facility] Temazepam (Restoril) 7.5 mg PO BEDTIME [facility] Last Admin: 01/24/18 21:26 Dose: 7.5 mg Temazepam (Restoril) 7.5 mg PO ONETIME ONE Stop: 01/24/18 22:03 Last Admin: 01/24/18 22:40 Dose: 7.5 mg - Problem List & Annotations (1) Fracture of proximal end of femur SNOMED Code(s): 189377948 Code(s): S72.009A - FRACTURE OF UNSP PART OF NECK OF UNSP FEMUR, INIT Status: Acute Priority: High Current Visit: Yes Qualifiers: Encounter type: initial encounter Fracture type: closed Laterality: left Qualified Code(s): S72.002A - Fracture of unspecified part of neck of left femur, initial encounter for closed fracture (2) Anemia SNOMED Code(s): 710450505 Code(s): D64.9 - ANEMIA, UNSPECIFIED Status: Chronic Priority: Medium Current Visit: Yes Qualifiers: 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 type: pancytopenia, antineoplastic chemotherapy-induced Qualified Code(s): D61.810 - Antineoplastic chemotherapy induced pancytopenia; T45.1X5A - Adverse effect of antineoplastic and immunosuppressive drugs, initial encounter (3) Congestive heart failure SNOMED Code(s): 95607240 Code(s): I50.9 - HEART FAILURE, UNSPECIFIED Status: Chronic Priority: Medium Current Visit: Yes Qualifiers: Heart failure type: diastolic Heart failure chronicity: chronic Qualified Code(s): I50.32 - Chronic diastolic (congestive) heart failure (4) Hyponatremia SNOMED Code(s): 42432321 Code(s): E87.1 - HYPO-OSMOLALITY AND HYPONATREMIA Status: Chronic Priority: Medium Current Visit: Yes (5) Renal insufficiency SNOMED Code(s): 847816199, 828514306 Code(s): N28.9 - DISORDER OF KIDNEY AND URETER, UNSPECIFIED Status: Chronic Priority: High Current Visit: Yes (6) Traumatic brain injury SNOMED Code(s): 839508451 Code(s): S06.9X9A - UNSP INTRACRANIAL INJURY W LOC OF UNSP DURATION, INIT Status: Chronic Priority: Low Current Visit: Yes Qualifiers: Encounter type: subsequent encounter Loss of consciousness presence/ duration: with LOC of unspecified duration Qualified Code(s): S06.9X9D - Unspecified intracranial injury with loss of consciousness of unspecified duration, subsequent encounter (7) Type 2 diabetes mellitus SNOMED Code(s): 98637271 Code(s): E11.9 - TYPE 2 DIABETES MELLITUS WITHOUT COMPLICATIONS Status: Chronic Priority: Medium Current Visit: Yes Qualifiers: Diabetes mellitus residential insulin use: 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 Diabetes mellitus complication status: with unspecified complications Qualified Code(s): E11.8 - Type 2 diabetes mellitus with unspecified complications (8) Constipation SNOMED Code(s): 55018140 Code(s): K59.00 - CONSTIPATION, UNSPECIFIED Status: Acute Priority: Medium Current Visit: Yes Qualifiers: Constipation type: unspecified constipation type Qualified Code(s): K59.00 - Constipation, unspecified (9) Fall SNOMED Code(s): 3411417, 639188969 Code(s): W19.XXXA - UNSPECIFIED FALL, INITIAL ENCOUNTER Status: Acute Priority: High Current Visit: No Qualifiers: Encounter type: initial encounter Qualified Code(s): W19.XXXA - Unspecified fall, initial encounter (10) Hypertension SNOMED Code(s): 35209201 Code(s): I10 - ESSENTIAL (PRIMARY) HYPERTENSION Status: Acute Priority: High Current Visit: Yes Qualifiers: Hypertension type: essential hypertension Qualified Code(s): I10 - Essential (primary) hypertension - Problem List Review Problem List Initiated/Reviewed/Updated: Yes - Plan Plan:: I/P: Acute: Fracture of proximal end of femur, s/p fall ; POD 13: IM paul placement for left femoral shaft fracture, Stable -Pain controlled -Stable condition -Pain medication PRN -Bedrest, PT/OT after surgery--> walking now with PT/OT -Continue supportive care HTN -Labile -Continue current BP regimen -PRN BP meds as needed Hyponatremia -Na 130--> 129 -Dietary consult for hyponatremia -Thermotabs 1 tab pos TID meals Resolved: S/p Hyperemesis--resolved -Risk factor: chemotherapy -Zofran Q4H -IV lactated ringers Chronic: Anemia, Thrombocytopenia- stable -RBC 2.96-->2.74-->2.95-->3.03, Hgb 9.4-->8.9-->9.4,-->9.8 HCT 28.7-->26.8--> 29.3, -->30.7, RDW 51.8-->52.4-->53.8-->59.5 -Plt 173-->180-->208-->279 -Monitor -Blood Type and Screen ordered -Replenish with PRBCs as needed CKD stage III, improving -eGFR 47-->50-->46-->42-->56 -Creatinine 1.7-->1.1-->1.2-->1.3-->1.0 -NS IV started in ED--> D/C and start LR IV--> D/C -Defer to PCP for f/u Diabetes Type II -Blood Glucose Checks QID -Continue at home Metformin 500mg -Sliding scale Insulin -A1C 5.0 -ADA diet after surgery -Defer to PCP for f/u CHF, improving -BNP 236-->1891-->1366-->2548-->2782-->1166-->722-->647-->533 -Continue at home Lasix 40mg TID -Monitor Traumatic Brain Injury Leukemia --> Continue at home Gleevec 600mg here Plan: She remains clinically stable and has been ambulating well with PT/OT Routine AM labs Continue PT/OT Ortho following Encourage patient to ambulate as much as she can CM/SW for discharge planning DVT Prophylaxis: SCD/Lovenox SubQ Ready to D/C pending SNF placement for rehabilitation--> Gleevec is causing issues with placement Code Status: Full code (CPR, Defib, Intubation)- However "No life sustaining treatment on machines" -per Sister Beti, Power of Animal Care Attendant PCP: Dr. Cespedes Placement still pending. CM to discuss wheelchair eligibility with patients. Patient continues to improve, however placement has been difficult to impossible with the current restrictions by [facility].
--- NOTE | 2018-02-05 10:58 | PCM.DCSUM1 ---
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 4 mg Ondansetron HCl (Zofran) 4 mg IVPUSH ONETIME PRN PRN Reason: Nausea/Vomiting Ondansetron HCl (Zofran) Confirm Administered Dose 4 mg .ROUTE .STK-MED ONE Stop: 01/20/18 14:49 Oral Electrolytes (Thermotabs) 1 each PO TIDMEALS [facility] Last Admin: 02/04/18 06:20 Dose: 1 each Pantoprazole Sodium (Protonix Iv) 40 mg IVPUSH DAILY [facility] Pantoprazole Sodium (Protonix Iv) 40 mg IVPUSH BID [facility] Last Admin: 01/20/18 09:37 Dose: 40 mg Loxapine 25 Mg 0 each PO DAILY@1400 [facility] Last Admin: 01/19/18 15:00 Dose: Not Given Phenylephrine HCl (Rodney-Synephrine) Confirm Administered Dose 10 mg .ROUTE .STK- MED ONE Stop: 01/20/18 14:00 Phenylephrine HCl (Phenylephrine In Ns 100 Mcg/Ml) Confirm Administered Dose 1 mg .ROUTE .STK-MED ONE Stop: 01/20/18 14:01 Propofol (Diprivan 20 Ml) Confirm Administered Dose 600 mg .ROUTE .STK-MED ONE Stop: 01/20/18 11:46 Temazepam (Restoril) 30 mg PO BEDTIME CELI Temazepam (Restoril) 7.5 mg PO BEDTIME CELI Last Admin: 01/24/18 21:26 Dose: 7.5 mg Temazepam (Restoril) 7.5 mg PO ONETIME ONE Stop: 01/24/18 22:03 Last Admin: 01/24/18 22:40 Dose: 7.5 mg - Exam Quality Assessment: Reports: DVT Prophylaxis General: Reports: Alert, Oriented, Cooperative, No Acute Distress HEENT: Reports: Pupils Equal, Pupils Reactive, EOMI, Mucous Membr. Moist/Nathalie Neck: Reports: Supple, Trachea Midline, No JVD Lungs: Reports: Clear to Auscultation, Normal Respiratory Effort Cardiovascular: Reports: Regular Rate, Regular Rhythm GI/Abdominal Exam: Normal Bowel Sounds, Soft, Non-Tender, No Organomegaly, No Distention, No Abnormal Bruit, No Mass, Pelvis Stable (Female) Exam: Deferred Rectal (Female) Exam: Deferred Back Exam: Reports: Normal Inspection, Full Range of Motion Extremities: Normal Inspection, Normal Range of Motion, Non-Tender, No Pedal Edema, Normal Capillary Refill Skin: Reports: Warm, Dry, Intact Wound/Incisions: Reports: Dressing Dry and Intact, No Drainage Neurological: Reports: No New Focal Deficit Psy/Mental Status: Reports: Alert, Normal Affect, Normal Mood
== END 2018-02-05 11:40 | DRG 481 ==
LOC: JD.ED 05:15 → JD.MS 07:28 → JD.ICU 15:56 → JD.MS 01-25 12:00
PROVIDERS: ADMIT Internal Medicine Cardiovascular Disease; ATTEND Internal Medicine Cardiovascular Disease
PROC: 0QS736Z Reposition Left Upper Femur with Intramedullary Internal Fixation Device, Percutaneous Approach (ICD-10-PCS; principal; 2018-01-20)
DX: S72.92XA Unspecified fracture of left femur, initial encounter for closed fracture (principal); S72.22XA Displaced subtrochanteric fracture of left femur, initial encounter for closed fracture; D61.810 Antineoplastic chemotherapy induced pancytopenia; S06.9X9A Unspecified intracranial injury with loss of consciousness of unspecified duration, initial encounter; I50.32 Chronic diastolic (congestive) heart failure; L97.229 Non-pressure chronic ulcer of left calf with unspecified severity; I13.0 Hypertensive heart and chronic kidney disease with heart failure and stage 1 through stage 4 chronic kidney disease, or unspecified chronic kidney disease; E87.1 Hypo-osmolality and hyponatremia; C92.10 Chronic myeloid leukemia, BCR/ABL-positive, not having achieved remission; C95.90 Leukemia, unspecified not having achieved remission; M54.9 Dorsalgia, unspecified; E11.9 Type 2 diabetes mellitus without complications; R18.8 Other ascites; I11.0 Hypertensive heart disease with heart failure; W01.10XA Fall on same level from slipping, tripping and stumbling with subsequent striking against unspecified object, initial encounter; Y92.012 Bathroom of single-family (private) house as the place of occurrence of the external cause; S00.03XA Contusion of scalp, initial encounter; S16.1XXA Strain of muscle, fascia and tendon at neck level, initial encounter; S30.0XXA Contusion of lower back and pelvis, initial encounter; I87.2 Venous insufficiency (chronic) (peripheral); E66.9 Obesity, unspecified; F31.9 Bipolar disorder, unspecified; F03.90 Unspecified dementia, unspecified severity, without behavioral disturbance, psychotic disturbance, mood disturbance, and anxiety; E03.9 Hypothyroidism, unspecified; F41.9 Anxiety disorder, unspecified; R06.03 Acute respiratory distress; E78.00 Pure hypercholesterolemia, unspecified; I20.9 Angina pectoris, unspecified; K21.9 Gastro-esophageal reflux disease without esophagitis; N28.9 Disorder of kidney and ureter, unspecified; M79.652 Pain in left thigh; M25.562 Pain in left knee; M25.561 Pain in right knee; E11.22 Type 2 diabetes mellitus with diabetic chronic kidney disease; R06.02 Shortness of breath; R60.9 Edema, unspecified; R06.82 Tachypnea, not elsewhere classified; N18.3 Chronic kidney disease, stage 3 (moderate); R11.12 Projectile vomiting; T40.2X5A Adverse effect of other opioids, initial encounter; K59.00 Constipation, unspecified; R53.1 Weakness; R26.9 Unspecified abnormalities of gait and mobility; D64.81 Anemia due to antineoplastic chemotherapy; T45.1X5A Adverse effect of antineoplastic and immunosuppressive drugs, initial encounter; D69.59 Other secondary thrombocytopenia; Z18.10 Retained metal fragments, unspecified; Z88.7 Allergy status to serum and vaccine; Z79.82 Long term (current) use of aspirin; Z87.891 Personal history of nicotine dependence; Z87.820 Personal history of traumatic brain injury; Z79.899 Other long term (current) drug therapy; Z79.4 Long term (current) use of insulin; Z86.14 Personal history of Methicillin resistant Staphylococcus aureus infection
CPT/HCPCS: 36415; 51702; 70450; 71045; 72125; 72170; 73552; 80053; 83735; 83880; 85025; 85610; 85730; 86850; 86900; 86901; 86922 ×2; 93005; 96361; 96374; 96375; 99285; J1170; J2405; J7040; 01230; 36430; 72192; 72192-26; 74177; 74177-26; 76000; 76000-26; 80048; 81001; 82962; 83036; 83605; 85014; 85018; 86140; 87641; 93010; 96376; 97110-GO; 97110-GP; 97116-GP; 97162-GP; 97166-GO; 97530-GO; 97530-GP; 99223; 99231; 99232; 99239; A9270-GY; C1713; C1776; C9113; J0360; J0690; J1200; J1650; J1815-GY; J1885; J1940; J2250; J2274; J2310; J2370; J2704; J3010; J3490; J7030; J7050; J7120; P9016; Q9967

== ENCOUNTER 2018-04-23 02:42 | Emergency (ER) | payer MEDICARE, MEDICAID ==
[2018-04-23 03:03] VITALS: BP 141/50
--- NOTE | 2018-04-23 04:02 | EDM.PDOC ---
ED HPI GENERAL MEDICAL PROBLEM - General Chief Complaint: Upper Extremity Injury/Pain Stated Complaint: FALL Time Seen by Provider: 04/23/18 03:05 Source of Information: Reports: Patient, Other (Ex-) History Limitations: Reports: No Limitations - History of Present Illness INITIAL COMMENTS - FREE TEXT/NARRATIVE: The patient states that she fell and landed on her buttocks around 02:00 this morning, when her walker did not turn as fast as she did. She presents with left buttock pain, concerned that she re-fractured her left femur that was pinned by Dr. Lanza this past December. The patient's PCP is Dr. Cespedes. Left Hip Pain Score (Numeric/FACES): 5 - Related Data Allergies Allergy/AdvReac Type Severity Reaction Status Date / Time Influenza Virus Vaccines AdvReac Anxiety Verified 04/23/18 03:03 Home Meds: Home Meds Acetaminophen 650 mg PO Q8H PRN 08/31/15 [History] Aspirin 81 mg PO DAILY 08/31/15 [History] Furosemide [Lasix] 40 mg PO TID 08/31/15 [History] Insulin Aspart [Novolog Flexpen] 3 units SUBCUT ACDINNER 08/31/15 [History] Insulin Aspart [Novolog Flexpen] 7 units SUBCUT BIDMEALS 08/31/15 [History] Losartan Potassium [Cozaar] 100 mg PO DAILY 08/31/15 [History] Loxapine Succinate [Loxapine] 25 mg PO QPM 08/31/15 [History] Loxapine Succinate [Loxapine] 50 mg PO BEDTIME 08/31/15 [History] cloNIDine [Catapres] 0.3 mg PO BID 08/31/15 [History] traZODone 100 mg PO BEDTIME 08/31/15 [History] Docosanol [Abreva 10%] 1 applic TOP Q6HR PRN 10/17/15 [History] Dextromethorphan/guaiFENesin [Robitussin DM] 10 ml PO Q4H PRN 10/02/16 [History] Imatinib Mesylate [Gleevec] 600 mg PO DAILY 10/02/16 [History] Memantine HCl [Namenda] 5 mg PO DAILY 08/30/17 [History] Nystatin [Nystatin Crm] 1 applic TOP BID PRN 08/30/17 [History] Temazepam 30 mg PO BEDTIME 08/30/17 [History] atorvaSTATin [Lipitor] 10 mg PO DAILY 08/30/17 [History] Insulin Degludec [Tresiba Flextouch U-100] 20 units SUBCUT BEDTIME 01/13/18 [ History] Bacitracin [Bacitracin Oint] 1 applic TOP DAILY 01/19/18 [History] Benzocaine/Menthol [Chloraseptic Sore Throat Leon] 1 lozenge PO Q2HR PRN [History] Carboxymethylcellulose Sodium [Refresh Tears 0.5%] 1 drop EYEBOTH BID 01/19/18 [ History] Ondansetron [Zofran ODT] 4 mg SL Q4HR PRN 01/19/18 [History] Spironolactone [Aldactone] 25 mg PO DAILY 01/19/18 [History] metFORMIN HCl [Metformin HCl] 500 mg PO BIDMEALS 01/19/18 [History] Ibuprofen 600 mg PO TID PRN 01/21/18 [History] Levothyroxine Sodium [Synthroid] 100 mcg PO DAILY 01/21/18 [History] Magnesium Hydroxide [Milk of Magnesia] 30 ml PO DAILY PRN 01/21/18 [History] Metoprolol Succinate [Toprol XL] 25 mg PO DAILY 01/21/18 [History] Polyethylene Glycol 3350 [Miralax] 17 gm PO ASDIRECTED #10 powd.pack 02/05/18 [ Rx] traMADol [Ultram] 50 mg PO Q8HR PRN #35 tablet 02/05/18 [Rx] Past Medical History Cardiovascular History: Reports: Heart Failure, High Cholesterol, Hypertension Musculoskeletal History: Reports: Fracture (left femur) Neurological History: Reports: Brain Injury Psychiatric History: Reports: Bipolar Endocrine/Metabolic History: Reports: Diabetes, Type II, Hypothyroidism, Obesity /BMI 30+ Hematologic History: Reports: Anemia Oncologic (Cancer) History: Reports: Leukemia (CML) Dermatologic History: Reports: Cellulitis - Infectious Disease History Infectious Disease History: Reports: MRSA - Past Surgical History HEENT Surgical History: Reports: Cataract Surgery, Oral Surgery ([place] teeth extraction) GI Surgical History: Reports: Appendectomy, Cholecystectomy Female Surgical History: Reports: Tubal Ligation Musculoskeletal Surgical History: Reports: Other (See Below) (left femur paul December 2017) Social & Family History - Family History Family Medical History: Noncontributory - Tobacco Use Smoking Status *Q: Former Smoker Years of Tobacco use: 5 Second Hand Smoke Exposure: No - Caffeine Use Caffeine Use: Reports: Coffee - Alcohol Use Alcohol Use History: Yes Alcohol Use Frequency: Rarely - Recreational Drug Use Recreational Drug Use: No - Living Situation & Occupation Living situation: Reports: , Assisted Living ([facility]) Occupation: Disabled Review of Systems - Review of Systems Review Of Systems: ROS reveals no pertinent complaints other than HPI. ED EXAM, GENERAL - Physical Exam Exam: See Below Exam Limited By: No Limitations General Appearance: Alert, WD/WN, No Apparent Distress Eye Exam: Bilateral Eye: EOMI, Normal Inspection Ears: Normal External Exam, Hearing Grossly Normal Nose: Normal Inspection, No Blood Throat/Mouth: Normal Inspection, Normal Lips, Normal Voice, No Airway Compromise Head: Atraumatic, Normocephalic Neck: Normal Inspection, Full Range of Motion Respiratory/Chest: No Respiratory Distress, Lungs Clear, Normal Breath Sounds, No Accessory Muscle Use Cardiovascular: Normal Peripheral Pulses, Regular Rate, Rhythm, No Gallop, No JVD, No Murmur, No Rub Peripheral Pulses: 4+: Radial (L), Radial (R) GI/Abdominal: Normal Bowel Sounds, Soft, Non-Tender, No Organomegaly, No Distention, No Abnormal Bruit, No Mass, Other (Obese) (Female) Exam: Deferred Rectal (Female) Exam: Deferred Extremities: Non-Tender, Normal Capillary Refill, Other (Well-healed scar to the lateral aspect of the proximal left thigh. No other visible abnormality, such as swelling, erythema, ecchymosis, or abrasion, and the area is not tender to palpation. Neurovascular status of the left lower extremity is intact.) Neurological: Alert, Oriented, No Motor/Sensory Deficits Psychiatric: Normal Affect Skin Exam: Warm, Dry, Intact, Normal Color, No Rash Course - Vital Signs Last Recorded V/S: Last Vital Signs Temp 36.8 C 04/23/18 02:59 Pulse 71 04/23/18 02:59 Resp 12 04/23/18 02:59 BP 141/50 H 04/23/18 02:59 Pulse Ox 100 04/23/18 02:59 - Re-Assessments/Exams Free Text/Narrative Re-Assessment/Exam: 04/23/18 03:49 2-view radiographs of the left hip and pelvis appear to demonstrate a nonhealed proximal left femur fracture with prior paul and screws, essentially unchanged from 02/02/2018. No pelvic fracture seen. Formal read per the Radiologist pending. 04/23/18 04:44 X-ray results discussed with the patient and her ex-. The patient may return to [facility] assisted living. Departure - Departure Time of Disposition: 04:45 Disposition: Home, Self-Care 01 Condition: Good Clinical Impression: Fall at home - Discharge Information *PRESCRIPTION DRUG MONITORING PROGRAM REVIEWED*: Not Applicable *COPY OF PRESCRIPTION DRUG MONITORING REPORT IN PATIENT KAELA: Not Applicable Instructions: Fall Prevention in the Home, [id number] Referrals: Luís Cespedes MD [Primary Care Provider] - Forms: ED Department Discharge Additional Instructions: You were seen in the emergency room after falling onto your buttocks early this morning. Workup in the ER included x-rays of your left hip and pelvis, which show the prior upper left femur fracture with the metal paul, but no new injury. You may resume your usual activities, as tolerated, including going to rehabilitation at 9:15 this morning. If any other problems, please do not hesitate to return to the ER.
--- NOTE | 2018-04-23 07:15 | CR ---
Pelvis and left hip: AP view of the pelvis was obtained as well as AP view coned-down to the left hip. Comparison: Prior left femur study of 02/02/18. Fracture is again noted within the proximal femur. Intramedullary paul is in place. Fracture line is still visible with callus being identified. Vascular calcification is noted. Calcification is seen off the superior aspect of the greater trochanter which is dystrophic. Mild degenerative change is partially visualized within the spine. No acute fracture or other bony abnormality is seen. Impression: 1. Findings which are felt to be incidental as described above. Nothing acute is identified on AP pelvis or AP left hip exam. Diagnostic code #2
== END 2018-04-23 05:04 | disposition home or self-care (01) ==
LOC: JD.ED 02:42
DX: S72.001D Fracture of unspecified part of neck of right femur, subsequent encounter for closed fracture with routine healing (principal); I10 Essential (primary) hypertension; E11.9 Type 2 diabetes mellitus without complications; E66.9 Obesity, unspecified; W19.XXXD Unspecified fall, subsequent encounter; Z79.82 Long term (current) use of aspirin; Z79.899 Other long term (current) drug therapy; Z79.4 Long term (current) use of insulin; Z87.891 Personal history of nicotine dependence; Y92.009 Unspecified place in unspecified non-institutional (private) residence as the place of occurrence of the external cause
CPT/HCPCS: 73501-26-LT; 73501-LT; 99283

== ENCOUNTER 2018-12-28 16:30 | Emergency (ER) | payer MEDICARE, MEDICAID ==
[2018-12-28] MEDS ORDERED: Acetaminophen 325 MG Tab PO ONE (18:06)
[2018-12-28] MEDS ORDERED: Furosemide 40 MG/4 ML VIAL IVPUSH ONE (18:06)
[2018-12-28] MEDS ORDERED: diphenhydrAMINE 50 MG/ML SDV IV ONE (18:06)
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
[2018-12-28 20:17] VITALS: BP 145/62
== END 2018-12-28 21:00 ==
LOC: JD.ED 16:30
DX: D61.810 Antineoplastic chemotherapy induced pancytopenia (principal); C92.10 Chronic myeloid leukemia, BCR/ABL-positive, not having achieved remission; I13.0 Hypertensive heart and chronic kidney disease with heart failure and stage 1 through stage 4 chronic kidney disease, or unspecified chronic kidney disease; N18.3 Chronic kidney disease, stage 3 (moderate); I50.9 Heart failure, unspecified; E11.22 Type 2 diabetes mellitus with diabetic chronic kidney disease; F31.9 Bipolar disorder, unspecified; E03.9 Hypothyroidism, unspecified; Z86.14 Personal history of Methicillin resistant Staphylococcus aureus infection; Z88.7 Allergy status to serum and vaccine; Z79.82 Long term (current) use of aspirin; Z79.899 Other long term (current) drug therapy; Z79.4 Long term (current) use of insulin; Z87.891 Personal history of nicotine dependence
CPT/HCPCS: 36415; 80053; 83735; 85025; 85610; 86140; 96374; 96375; 99284; A9270; J1200; J1940; P9016; 36430; 86850; 86900; 86901; 86922; 99285

== ENCOUNTER 2019-02-08 09:16 | Emergency (ER) | payer MEDICARE, MEDICAID ==
--- NOTE | 2019-02-08 09:52 | EDM.PDOC ---
ED HPI GENERAL MEDICAL PROBLEM - General Chief Complaint: IV Access Related Stated Complaint: LOW HEMOGLOBIN Time Seen by Provider: 02/08/19 09:30 Source of Information: Reports: Patient History Limitations: Reports: No Limitations - History of Present Illness INITIAL COMMENTS - FREE TEXT/NARRATIVE: The patient states that she was seen at the [facility] this morning, where she received some pre-ordered blood work. She states that she went home, but was subsequently called by her Panel Lay Up Worker, instructing her to come to the ER due to a low hemoglobin. We were not contacted by either her Panel Lay Up Worker or the [facility], and no lab results were forwarded to us. The patient states that she feels "drained" today, otherwise, she denies having any recent fever, chills, cough, chest pain, palpitations, nausea, vomiting, constipation, diarrhea, or urinary symptoms. The patient has a history of CML and anemia. The patient's PCP is Dr. Luís Cespedes. Her Metal Loader/Oncologist is Dr. Austin Dow. Her Panel Lay Up Worker is Dr. Scottie Bae. - Related Data Allergies Allergy/AdvReac Type Severity Reaction Status Date / Time Influenza Virus Vaccines AdvReac Anxiety Verified 02/08/19 09:26 Home Meds: Home Meds Acetaminophen 650 mg PO Q8H PRN 08/31/15 [History] Aspirin 81 mg PO DAILY 08/31/15 [History] Furosemide [Lasix] 40 mg PO TID 08/31/15 [History] Insulin Aspart [Novolog Flexpen] 3 units SUBCUT ACDINNER 08/31/15 [History] Insulin Aspart [Novolog Flexpen] 7 units SUBCUT BIDMEALS 08/31/15 [History] Losartan Potassium [Cozaar] 100 mg PO DAILY 08/31/15 [History] Loxapine Succinate [Loxapine] 25 mg PO QPM 08/31/15 [History] Loxapine Succinate [Loxapine] 50 mg PO BEDTIME 08/31/15 [History] cloNIDine [Catapres] 0.3 mg PO BID 08/31/15 [History] traZODone 100 mg PO BEDTIME 08/31/15 [History] Docosanol [Abreva 10%] 1 applic TOP Q6HR PRN 10/17/15 [History] Dextromethorphan/guaiFENesin [Robitussin DM] 10 ml PO Q4H PRN 10/02/16 [History] Imatinib Mesylate [Gleevec] 600 mg PO DAILY 10/02/16 [History] Memantine HCl [Namenda] 5 mg PO DAILY 08/30/17 [History] Nystatin [Nystatin Crm] 1 applic TOP BID PRN 08/30/17 [History] Temazepam 30 mg PO BEDTIME 08/30/17 [History] atorvaSTATin [Lipitor] 10 mg PO DAILY 08/30/17 [History] Insulin Degludec [Tresiba Flextouch U-100] 20 units SUBCUT BEDTIME 01/13/18 [ History] Bacitracin [Bacitracin Oint] 1 applic TOP DAILY 01/19/18 [History] Benzocaine/Menthol [Chloraseptic Sore Throat Leon] 1 lozenge PO Q2HR PRN [History] Carboxymethylcellulose Sodium [Refresh Tears 0.5%] 1 drop EYEBOTH BID 01/19/18 [ History] Ondansetron [Zofran ODT] 4 mg SL Q4HR PRN 01/19/18 [History] Spironolactone [Aldactone] 25 mg PO DAILY 01/19/18 [History] Levothyroxine Sodium [Synthroid] 100 mcg PO DAILY 01/21/18 [History] Magnesium Hydroxide [Milk of Magnesia] 30 ml PO DAILY PRN 01/21/18 [History] Metoprolol Succinate [Toprol XL] 25 mg PO DAILY 01/21/18 [History] Polyethylene Glycol 3350 [Miralax] 17 gm PO ASDIRECTED #10 powd.pack 02/05/18 [ Rx] Insulin Degludec [Tresiba] 13 units SQ DAILY 01/24/19 [History] Melatonin 5 mg PO DAILY 01/24/19 [History] Pantoprazole [ProTONIX] 40 mg PO BID 01/24/19 [History] Past Medical History Cardiovascular History: Reports: Heart Failure, High Cholesterol, Hypertension Gastrointestinal History: Reports: GERD Musculoskeletal History: Reports: Fracture (left femur) Neurological History: Reports: Brain Injury, Other (See Below) (Dementia) Psychiatric History: Reports: Bipolar, Depression Endocrine/Metabolic History: Reports: Diabetes, Type II, Hypothyroidism, Obesity /BMI 30+ Hematologic History: Reports: Anemia, Blood Transfusion(s) Oncologic (Cancer) History: Reports: Leukemia (CML) Dermatologic History: Reports: Cellulitis - Infectious Disease History Infectious Disease History: Reports: MRSA - Past Surgical History HEENT Surgical History: Reports: Cataract Surgery, Oral Surgery (wisdom teeth extraction) GI Surgical History: Reports: Appendectomy, Cholecystectomy Female Surgical History: Reports: Tubal Ligation Musculoskeletal Surgical History: Reports: Other (See Below) (Left femur rodding December 2017) Social & Family History - Family History Family Medical History: Noncontributory - Tobacco Use Smoking Status *Q: Former Smoker Second Hand Smoke Exposure: No - Caffeine Use Caffeine Use: Reports: Coffee - Alcohol Use Alcohol Use History: Yes Alcohol Use Frequency: Rarely - Recreational Drug Use Recreational Drug Use: No - Living Situation & Occupation Living situation: Reports: , Assisted Living ([place]) Occupation: Disabled ED ROS GENERAL - Review of Systems Review Of Systems: ROS reveals no pertinent complaints other than HPI. ED EXAM, GENERAL - Physical Exam Exam: See Below Exam Limited By: No Limitations General Appearance: Alert, WD/WN, No Apparent Distress Eye Exam: Bilateral Eye: EOMI, Normal Inspection Ears: Normal External Exam, Hearing Loss Nose: Normal Inspection Throat/Mouth: Normal Inspection, Normal Lips, Normal Voice, No Airway Compromise Head: Atraumatic, Normocephalic Neck: Normal Inspection, Full Range of Motion Respiratory/Chest: No Respiratory Distress, Lungs Clear, Normal Breath Sounds, No Accessory Muscle Use Cardiovascular: Normal Peripheral Pulses, Regular Rate, Rhythm, No Edema, No Gallop, No JVD, No Murmur, No Rub Peripheral Pulses: 4+: Radial (L), Radial (R) GI/Abdominal: Normal Bowel Sounds, Soft, Non-Tender, No Organomegaly, No Distention, No Abnormal Bruit, Other (Obese) (Female) Exam: Deferred Rectal (Female) Exam: Normal Rectal Tone, Heme + Stool (moderate). No: Black Stool, Bloody Stool, Hemorrhoids, Tenderness Back Exam: Normal Inspection, Full Range of Motion, NT Extremities: Normal Inspection, Normal Range of Motion, No Pedal Edema, Normal Capillary Refill Neurological: Alert, Oriented, Normal Cognition, No Motor/Sensory Deficits Psychiatric: Normal Affect Skin Exam: Warm, Dry, Intact, Normal Color, No Rash Course - Vital Signs Last Recorded V/S: Last Vital Signs Temp 37.4 C 02/08/19 18:38 Pulse 82 02/08/19 18:38 Resp 16 02/08/19 18:38 BP 158/54 H 02/08/19 18:38 Pulse Ox 100 02/08/19 18:38 Orthostatic Blood Pressure [ 115/82 Standing] Orthostatic Blood Pressure [ 122/47 Sitting] Orthostatic Blood Pressure [ 119/47 Supine] - Orders/Labs/Meds Labs: Laboratory Tests 02/08/19 02/08/19 02/08/19 Range/Units 10:20 10:20 10:20 WBC 6.27 (3.98-10.04) K/mm3 RBC 1.87 L (3.98-5.22) M/mm3 Hgb 5.8 L* (11.2-15.7) gm/L Hct 18.8 L (34.1-44.9) % MCV 100.5 H (79.4-94.8) fl MCH 31.0 (25.6-32.2) pg MCHC 30.9 L (32.2-35.5) g/dl RDW Std Deviation 70.3 H (36.4-46.3) fL Plt Count 226 (182-369) K/mm3 MPV 8.7 L (9.4-12.3) fl Neutrophils % (Manual) 54 (40-60) % Band Neutrophils % 0 (0-10) % Lymphocytes % (Manual) 34 (20-40) % Atypical Lymphs % 0 % Monocytes % (Manual) 8 (2-10) % Eosinophils % (Manual) 2 (0.7-5.8) % Basophils % (Manual) 2 H (0.1-1.2) Toxic Granulation 1+ slight Platelet Estimate Adequate Plt Morphology Comment See note Polychromasia 2+ moderate Hypochromasia 3+ marked Anisocytosis 3+ marked Microcytosis 2+ moderate RBC Morph Comment Abnormal Percent Retic (0.50-1.70) % Sodium 133 L (136-145) mEq/L Potassium 4.2 (3.5-5.1) mEq/L Chloride 99 (98-107) mEq/L Carbon Dioxide 27 (21-32) mEq/L Anion Gap 11.2 (5-15) BUN 58 H D (7-18) mg/dL Creatinine 1.6 H (0.55-1.02) mg/dL Est Cr Clr Drug Dosing 25.85 mL/min Estimated GFR (MDRD) 33 (>60) mL/min BUN/Creatinine Ratio 36.3 H (14-18) Glucose 119 H (80-115) mg/dL Calcium 8.1 L (8.5-10.1) mg/dL Iron 76 (50-170) ug/dL TIBC 291 (100-400) ug/dL % Saturation 26 (20-55) % Transferrin 233 (202-364) mg/dL Ferritin 41 (8-252) ng/ml Total Bilirubin 0.4 (0.2-1.0) mg/dL AST 41 H (15-37) U/L ALT 33 (14-59) U/L Alkaline Phosphatase 96 (46-116) U/L Lactate Dehydrogenase 192 (81-234) U/L Total Protein 5.6 L (6.4-8.2) g/dl Albumin 2.5 L (3.4-5.0) g/dl Globulin 3.1 gm/dL Albumin/Globulin Ratio 0.8 L (1-2) Vitamin B12 493 (193-986) pg/ml Folate 18.7 (8.6-58.9) ng/mL Blood Type Gel Antibody Screen Crossmatch 02/08/19 02/08/19 02/08/19 Range/Units 10:20 10:20 19:04 WBC (3.98-10.04) K/mm3 RBC (3.98-5.22) M/mm3 Hgb 10.0 L D (11.2-15.7) gm/L Hct 30.1 L (34.1-44.9) % MCV (79.4-94.8) fl MCH (25.6-32.2) pg MCHC (32.2-35.5) g/dl RDW Std Deviation (36.4-46.3) fL Plt Count (182-369) K/mm3 MPV (9.4-12.3) fl Neutrophils % (Manual) (40-60) % Band Neutrophils % (0-10) % Lymphocytes % (Manual) (20-40) % Atypical Lymphs % % Monocytes % (Manual) (2-10) % Eosinophils % (Manual) (0.7-5.8) % Basophils % (Manual) (0.1-1.2) Toxic Granulation Platelet Estimate Plt Morphology Comment Polychromasia Hypochromasia Anisocytosis Microcytosis RBC Morph Comment Percent Retic 3.53 H (0.50-1.70) % Sodium (136-145) mEq/L Potassium (3.5-5.1) mEq/L Chloride (98-107) mEq/L Carbon Dioxide (21-32) mEq/L Anion Gap (5-15) BUN (7-18) mg/dL Creatinine (0.55-1.02) mg/dL Est Cr Clr Drug Dosing mL/min Estimated GFR (MDRD) (>60) mL/min BUN/Creatinine Ratio (14-18) Glucose (80-115) mg/dL Calcium (8.5-10.1) mg/dL Iron (50-170) ug/dL TIBC (100-400) ug/dL % Saturation (20-55) % Transferrin (202-364) mg/dL Ferritin (8-252) ng/ml Total Bilirubin (0.2-1.0) mg/dL AST (15-37) U/L ALT (14-59) U/L Alkaline Phosphatase (46-116) U/L Lactate Dehydrogenase (81-234) U/L Total Protein (6.4-8.2) g/dl Albumin (3.4-5.0) g/dl Globulin gm/dL Albumin/Globulin Ratio (1-2) Vitamin B12 (193-986) pg/ml Folate (8.6-58.9) ng/mL Blood Type A POSITIVE Gel Antibody Screen Negative Crossmatch See Detail Meds: Medications Discontinued Medications Generic Name Dose Route Start Last Admin Trade Name Aaron PRN Reason Stop Dose Admin Sodium Chloride Confirm 02/08/19 13:13 02/08/19 13:57 Normal Saline Administered 02/08/19 13:14 25 mls/hr Dose Administration 500 mls @ as directed .ROUTE .STK-MED ONE - Re-Assessments/Exams Free Text/Narrative Re-Assessment/Exam: 02/08/19 09:51 Since we don't have access to Clare's lab results, we will try to get in touch with Dr. Bae directly. 02/08/19 09:[address] Bae at 09:55. He stated that the patient had blood work drawn at the [facility] this morning. He had ordered the blood work due to a history of renal insufficiency, but found that her hemoglobin was 6.5 this morning. He looked at her prior records, seeing that it had been 6.5 about 2 weeks ago, but then went up to 10 - he presumed that she received a transfusion. When it was down to 6.5 again today, he felt it best that the patient be transferred to the ER for an anemia workup, although he acknowledged that he does not know the underlying cause of her anemia. He is aware that she is under the care of Dr. Dow for CML. 02/08/19 11:18 The patient's stool was moderately positive for occult blood on rectal exam. The patient's CBC is remarkable for hemoglobin depressed at 5.8 with a hematocrit of 18.8. They were 5.9/18.0 on 12/28/2018. The remainder of CBC is unremarkable. The patient CMP is remarkable for a BUN/Cr of 58/1.6. They were 32/1.4 on 2018. The remainder of the patient's CMP is unremarkable. The patient's LDH is normal at 192. The remainder of the patient's labs are pending. Based on the patient's H/H, I have ordered 2 units of packed red cells to be transfused. 02/08/19 11:43 The patient is not orthostatic. The patient's anemia workup is unremarkable. Her iron, ferritin, TIBC, transferrin, % saturation, folic acid level, and vitamin B12 level are all within normal limits. Her reticulocyte percent is high at 3.53%. 02/08/19 18:51 2 units of PRBCs have finished transfusing. I have ordered a H/H to check her new baseline. 02/08/19 19:22 The patient's H/H has returned at 10.0/30.1. I will discharge her home. Departure - Departure Time of Disposition: 19:23 Disposition: DC/Tfer to Elevator Constructor [facility] 63 Condition: Good Clinical Impression: Severe anemia, GI bleed - Discharge Information *PRESCRIPTION DRUG MONITORING PROGRAM REVIEWED*: Not Applicable *COPY OF PRESCRIPTION DRUG MONITORING REPORT IN PATIENT KAELA: Not Applicable Instructions: Anemia, Gastrointestinal Bleeding, [id number] Referrals: Luís Cespedes MD [Primary Care Provider] - Austin Dow MD [Ordering Only Provider] - Scottie Bae MD [Ordering Only Provider] - Forms: ED Department Discharge Additional Instructions: You were seen in the emergency room for anemia. Workup in the ER included blood work and positional blood pressure checks. Your hemoglobin was found to be significantly depressed at 5.8. On rectal examination, blood was found in your stool. You received 2 units of packed red blood cells in the ER. Your repeat hemoglobin is now up to 10.0. Follow-up with your PCP, Dr. Cespedes, early this coming week. Dr. Cespedes may want you to undergo a colonoscopy to find the source of your GI bleed. If any other problems, please do not hesitate to return to the ER.
[2019-02-08] MEDS ORDERED: Sodium Chloride 0.9% 500 ML ONE (13:13)
[2019-02-08 18:40] VITALS: BP 158/54
== END 2019-02-08 19:40 ==
LOC: JD.ED 09:16
DX: K92.2 Gastrointestinal hemorrhage, unspecified (principal); D64.9 Anemia, unspecified; I11.0 Hypertensive heart disease with heart failure; I50.9 Heart failure, unspecified; E11.9 Type 2 diabetes mellitus without complications; E03.9 Hypothyroidism, unspecified; Z98.49 Cataract extraction status, unspecified eye; Z90.49 Acquired absence of other specified parts of digestive tract; Z98.890 Other specified postprocedural states; Z98.51 Tubal ligation status; Z79.82 Long term (current) use of aspirin; Z79.4 Long term (current) use of insulin; Z79.899 Other long term (current) drug therapy; Z87.891 Personal history of nicotine dependence
CPT/HCPCS: 36415; 36430; 80053; 82607; 82728; 82746; 83540; 83615; 84466; 85007; 85014; 85018; 85027; 85045; 86850; 86900; 86901; 86922; 99284; J7040; P9016; 99283

== ENCOUNTER 2019-02-22 20:41 | Observation (INO) | payer MEDICARE, MEDICAID ==
--- NOTE | 2019-02-22 21:45 | EDM.PDOC ---
ED HPI GENERAL MEDICAL PROBLEM - General Chief Complaint: General Stated Complaint: POSS BLOOD TRANSFUSION Time Seen by Provider: 02/22/19 21:09 Source of Information: Reports: Patient History Limitations: Reports: No Limitations - History of Present Illness INITIAL COMMENTS - FREE TEXT/NARRATIVE: This is a 63-year-old female. She has a history of anemia very severe at times. She also has a history of a lower GI bleed that is chronic. She also has a history of some renal insufficiency contributing to her anemia. Apparently she saw her family doctor today and a hemoglobin was 7.6 and her sister who I believe is a nurse [facility] though the patient tells me Dr. Cespedes wanted her to come tomorrow to get a blood transfusion. She denies any syncopal episodes today. She states she doesn't have any significant other acute medical complaints. - Related Data Allergies Allergy/AdvReac Type Severity Reaction Status Date / Time Influenza Virus Vaccines AdvReac Anxiety Verified 02/08/19 09:26 Home Meds: Home Meds Acetaminophen 650 mg PO Q8H PRN 08/31/15 [History] Aspirin 81 mg PO DAILY 08/31/15 [History] Furosemide [Lasix] 40 mg PO TID 08/31/15 [History] Insulin Aspart [Novolog Flexpen] 6 units SUBCUT BIDMEALS 08/31/15 [History] Losartan Potassium [Cozaar] 100 mg PO DAILY 08/31/15 [History] Loxapine Succinate [Loxapine] 25 mg PO QPM 08/31/15 [History] Loxapine Succinate [Loxapine] 50 mg PO BEDTIME 08/31/15 [History] cloNIDine [Catapres] 0.3 mg PO BID 08/31/15 [History] traZODone 100 mg PO BEDTIME 08/31/15 [History] Docosanol [Abreva 10%] 1 applic TOP Q6HR PRN 10/17/15 [History] Dextromethorphan/guaiFENesin [Robitussin DM] 10 ml PO Q4H PRN 10/02/16 [History] Imatinib Mesylate [Gleevec] 600 mg PO DAILY 10/02/16 [History] Memantine HCl [Namenda] 5 mg PO DAILY 08/30/17 [History] Nystatin [Nystatin Crm] 1 applic TOP BID PRN 08/30/17 [History] Temazepam 30 mg PO BEDTIME 08/30/17 [History] atorvaSTATin [Lipitor] 10 mg PO DAILY 08/30/17 [History] Bacitracin [Bacitracin Oint] 1 applic TOP DAILY 01/19/18 [History] Carboxymethylcellulose Sodium [Refresh Tears 0.5%] 1 drop EYEBOTH BID 01/19/18 [ History] Ondansetron [Zofran ODT] 4 mg SL Q4HR PRN 01/19/18 [History] Spironolactone [Aldactone] 25 mg PO DAILY 01/19/18 [History] Levothyroxine Sodium [Synthroid] 100 mcg PO DAILY 01/21/18 [History] Magnesium Hydroxide [Milk of Magnesia] 30 ml PO DAILY PRN 01/21/18 [History] Metoprolol Succinate [Toprol XL] 25 mg PO DAILY 01/21/18 [History] Polyethylene Glycol 3350 [Miralax] 17 gm PO ASDIRECTED #10 powd.pack 02/05/18 [ Rx] Insulin Degludec [Tresiba] 13 units SQ DAILY 01/24/19 [History] Melatonin 5 mg PO DAILY 01/24/19 [History] Pantoprazole [ProTONIX] 40 mg PO BID 01/24/19 [History] Past Medical History Other HEENT History: tooth abcess Cardiovascular History: Reports: Heart Failure, High Cholesterol, Hypertension Other Cardiovascular History: venous insufficiency, atypical chest pain; angina pectoris inspecified. Gastrointestinal History: Reports: GERD Other Gastrointestinal History: obesity, ascites Musculoskeletal History: Reports: Fracture (left femur) Other Musculoskeletal History: fx two bones in foot 2.5yrs ago. Neurological History: Reports: Brain Injury, Other (See Below) (Dementia) Other Neuro History: personal history of traumatic brain injury Psychiatric History: Reports: Bipolar, Depression Other Psychiatric History: Check up with psychiatrist q3-4 months Endocrine/Metabolic History: Reports: Diabetes, Type II, Hypothyroidism, Obesity /BMI 30+ Hematologic History: Reports: Anemia, Blood Transfusion(s) Oncologic (Cancer) History: Reports: Leukemia (CML) Dermatologic History: Reports: Cellulitis - Infectious Disease History Infectious Disease History: Reports: MRSA - Past Surgical History HEENT Surgical History: Reports: Cataract Surgery, Oral Surgery (wisdom teeth extraction) GI Surgical History: Reports: Appendectomy, Cholecystectomy Female Surgical History: Reports: Tubal Ligation Musculoskeletal Surgical History: Reports: Other (See Below) (Left femur rodding December 2017) Social & Family History - Family History Family Medical History: Noncontributory - Caffeine Use Caffeine Use: Reports: Coffee - Living Situation & Occupation Living situation: Reports: , Assisted Living ([place]) Occupation: Disabled ED ROS GENERAL - Review of Systems Review Of Systems: See Below Constitutional: Denies: Fever, Chills HEENT: Reports: No Symptoms Respiratory: Denies: Shortness of Breath Cardiovascular: Denies: Chest Pain Endocrine: Reports: No Symptoms GI/Abdominal: Reports: Other (Hemoccult positive stools). Denies: Constipation , Diarrhea, Nausea, Vomiting : Reports: No Symptoms Musculoskeletal: Reports: Other (Generalized arthralgias) Skin: Reports: Pallor Neurological: Reports: Difficulty Walking Psychiatric: Reports: No Symptoms Hematologic/Lymphatic: Reports: Anemia ED EXAM, GENERAL - Physical Exam Exam: See Below Exam Limited By: No Limitations General Appearance: Alert, WD/WN, No Apparent Distress Eye Exam: Bilateral Eye: Normal Inspection (Very pale conjunctiva) Ears: Normal External Exam Nose: Normal Inspection Throat/Mouth: Normal Inspection, Normal Lips, Normal Voice, No Airway Compromise Head: Normocephalic Neck: Limited Range of Motion Respiratory/Chest: No Respiratory Distress, Lungs Clear, Normal Breath Sounds Cardiovascular: Regular Rate, Rhythm, No Murmur GI/Abdominal: Soft, Non-Tender Rectal (Female) Exam: Heme + Stool Back Exam: Decreased Range of Motion Extremities: Limited Range of Motion Neurological: Alert, Oriented Psychiatric: Normal Affect, Normal Mood Skin Exam: Warm, Pallor Course - Vital Signs Last Recorded V/S: Last Vital Signs Temp 98.2 F 02/22/19 20:56 Pulse 80 02/22/19 20:56 Resp 18 02/22/19 20:56 BP 147/36 H 02/22/19 20:56 Pulse Ox 99 02/22/19 20:56 - Orders/Labs/Meds Orders: Active Orders 24 hr Category Date Time Status PACKED CELLS [RED BLOOD CELLS LP] [BBK] Stat Lab 02/22/19 21:05 Results TYPE AND SCREEN [BBK] Stat Lab 02/22/19 21:05 Results Transfuse PRBC [Transfuse Red Blood Cells] [COMM] Stat Oth 02/22/19 21:28 Ordered Labs: Laboratory Tests 02/22/19 02/22/19 02/22/19 Range/Units 21:05 21:05 21:05 WBC 7.33 (3.98-10.04) K/mm3 RBC 2.34 L (3.98-5.22) M/mm3 Hgb 7.4 L D (11.2-15.7) gm/L Hct 22.8 L (34.1-44.9) % MCV 97.4 H D (79.4-94.8) fl MCH 31.6 (25.6-32.2) pg MCHC 32.5 (32.2-35.5) g/dl RDW Std Deviation 66.7 H (36.4-46.3) fL Plt Count 213 (182-369) K/mm3 MPV 9.9 (9.4-12.3) fl Neut % (Auto) 62.1 (34.0-71.1) % Lymph % (Auto) 25.1 (19.3-51.7) % [place] % (Auto) 8.7 (4.7-12.5) % Eos % (Auto) 3.3 (0.7-5.8) Baso % (Auto) 0.7 (0.1-1.2) % Neut # (Auto) 4.55 (1.56-6.13) K/mm3 Lymph # (Auto) 1.84 (1.18-3.74) K/mm3 [place] # (Auto) 0.64 H (0.24-0.36) K/mm3 Eos # (Auto) 0.24 (0.04-0.36) K/mm3 Baso # (Auto) 0.05 (0.01-0.08) K/mm3 Manual Slide Review Abnormal smear Sodium 136 (136-145) mEq/L Potassium 3.9 (3.5-5.1) mEq/L Chloride 102 (98-107) mEq/L Carbon Dioxide 26 (21-32) mEq/L Anion Gap 11.9 (5-15) BUN 59 H (7-18) mg/dL Creatinine 1.4 H (0.55-1.02) mg/dL Est Cr Clr Drug Dosing 29.54 mL/min Estimated GFR (MDRD) 38 (>60) mL/min BUN/Creatinine Ratio 42.1 H (14-18) Glucose 153 H (80-115) mg/dL Calcium 8.8 (8.5-10.1) mg/dL Total Bilirubin 0.4 (0.2-1.0) mg/dL AST 43 H (15-37) U/L ALT 39 (14-59) U/L Alkaline Phosphatase 103 (46-116) U/L Total Protein 6.2 L (6.4-8.2) g/dl Albumin 2.8 L (3.4-5.0) g/dl Globulin 3.4 gm/dL Albumin/Globulin Ratio 0.8 L (1-2) Blood Type A POSITIVE Gel Antibody Screen Negative Crossmatch See Detail - Re-Assessments/Exams Free Text/Narrative Re-Assessment/Exam: 02/22/19 21:46 I spoke to the patient regarding her hemoglobin of 7.4, we will type and cross 2 units and transfuse. Her Hemoccult stool is still positive as it was 14 days ago. She is not aware that they're going to do anything as far as colonoscopy or any other procedure to see why she has the Hemoccult positive stool. 02/22/19 22:[address] Mcgraw regarding the patient and he will put her in observation and only transfuse 1 unit and recheck hemoglobin in the a.m. and possibly a second unit if needed. We're concerned with her history of cardiac disease and congestive heart failure we do not wish to give her a bunch of fluids with a transfusion and then have her go into congestive heart failure. I spoke with Dr. Kirby regarding the GI blood loss for Dr. Mcgraw. He'll be consult and in the a.m. for evaluation of the patient and possible bowel prep for a colonoscopy. 02/22/19 22:20 Right the bridge orders for observation bed and transfusion. Once the first unit is transfuse the recheck a hemoglobin and call the hemoglobin results to Dr. Mcgraw and he will decide whether to transfuse the second unit at that time. Departure - Departure Time of Disposition: 22:15 Disposition: Refer to Observation Condition: Fair Clinical Impression: Lower GI bleed, Renal insufficiency, Severe anemia - Discharge Information ED Communication - ED Communication Date/Time Date: 02/22/19 Time Called: 22:14 - Discussed Case With (1) Discussed Case With (1): Admitting Provider Person/s Notified (1): Bran Arteaga (He will admit to observation) Person/s Notified (2): Hector Kirby (He will consult regarding GI blood loss in the a.m.) - My Orders Last 24 Hours: My Active Orders 02/22/19 21:05 PACKED CELLS [RED BLOOD CELLS LP] [BBK] Stat TYPE AND SCREEN [BBK] Stat 02/22/19 21:28 Transfuse PRBC [Transfuse Red Blood Cells] [COMM] Stat - Assessment/Plan Last 24 Hours: My Active Orders 02/22/19 21:05 PACKED CELLS [RED BLOOD CELLS LP] [BBK] Stat TYPE AND SCREEN [BBK] Stat 02/22/19 21:28 Transfuse PRBC [Transfuse Red Blood Cells] [COMM] Stat
[2019-02-22] MEDS ORDERED: Sodium Chloride 0.9% 250 ML IV SCH (23:00)
--- NOTE | 2019-02-23 06:12 | PCM.HP ---
H&P History of Present Illness - General Date of Service: 02/23/19 Admit Problem/Dx: Admission Diagnosis/Problem Admission Diagnosis/Problem Anemia Source of Information: Patient, Provider - History of Present Illness Initial Comments - Free Text/Narative: This 63-year-old female was admitted through the emergency room department for observation to receive a blood transfusion. Patient has a history of anemia with previous blood transfusions. Patient was scheduled to receive blood this morning as an outpatient, but understands at [facility] was concerned and referred her last night to the emergency room. Patient was found to have a hemoglobin of 7.4 and I was called for admission for observation. Patient was given 1 unit packed red blood cells overnight and her hemoglobin has increased to 9.6. Guaiac stools were done in the emergency room which were positive, but patient is on iron supplements. Patient does have a history of CML, Type 2 diabetes insulin-dependent, hypothyroidism, dementia, bipolar disorder, hypertension. Patient states that initially she did feel fatigued but is feeling better today after the transfusion. - Related Data Allergies/Adverse Reactions: Allergies Allergy/AdvReac Type Severity Reaction Status Date / Time Influenza Virus Vaccines AdvReac Anxiety Verified 02/08/19 09:26 Home Medications: Home Meds Acetaminophen 650 mg PO Q8H PRN 08/31/15 [History] Aspirin 81 mg PO DAILY 08/31/15 [History] Furosemide [Lasix] 40 mg PO TID 08/31/15 [History] Insulin Aspart [Novolog Flexpen] 6 units SUBCUT BIDMEALS 08/31/15 [History] Losartan Potassium [Cozaar] 100 mg PO DAILY 08/31/15 [History] Loxapine Succinate [Loxapine] 25 mg PO QPM 08/31/15 [History] Loxapine Succinate [Loxapine] 50 mg PO BEDTIME 08/31/15 [History] cloNIDine [Catapres] 0.3 mg PO BID 08/31/15 [History] traZODone 100 mg PO BEDTIME 08/31/15 [History] Dextromethorphan/guaiFENesin [Robitussin DM] 10 ml PO Q4H PRN 10/02/16 [History] Imatinib Mesylate [Gleevec] 600 mg PO DAILY 10/02/16 [History] Memantine HCl [Namenda] 5 mg PO DAILY 08/30/17 [History] Nystatin [Nystatin Crm] 1 applic TOP BID PRN 08/30/17 [History] Temazepam 30 mg PO BEDTIME 08/30/17 [History] atorvaSTATin [Lipitor] 10 mg PO DAILY 08/30/17 [History] Bacitracin [Bacitracin Oint] 1 applic TOP DAILY 01/19/18 [History] Carboxymethylcellulose Sodium [Refresh Tears 0.5%] 1 drop EYEBOTH BID 01/19/18 [ History] Ondansetron [Zofran ODT] 4 mg SL Q4HR PRN 01/19/18 [History] Spironolactone [Aldactone] 25 mg PO DAILY 01/19/18 [History] Levothyroxine Sodium [Synthroid] 100 mcg PO DAILY 01/21/18 [History] Metoprolol Succinate [Toprol XL] 25 mg PO DAILY 01/21/18 [History] Insulin Degludec [Tresiba] 13 units SQ BEDTIME 01/24/19 [History] Melatonin 5 mg PO BEDTIME 01/24/19 [History] Pantoprazole [ProTONIX] 40 mg PO BID 01/24/19 [History] Polyethylene Glycol 3350 [Miralax] 17 gm PO ASDIRECTED PRN 02/22/19 [History] Past Medical History Other HEENT History: tooth abcess Cardiovascular History: Reports: Heart Failure, High Cholesterol, Hypertension Other Cardiovascular History: venous insufficiency, atypical chest pain; angina pectoris inspecified. Gastrointestinal History: Reports: GERD Other Gastrointestinal History: obesity, ascites Musculoskeletal History: Reports: Fracture Other Musculoskeletal History: fx two bones in foot 2.5yrs ago. Neurological History: Reports: None, Brain Injury, Other (See Below) Other Neuro History: personal history of traumatic brain injury Psychiatric History: Reports: Bipolar, Depression Other Psychiatric History: Check up with psychiatrist q3-4 months Endocrine/Metabolic History: Reports: Diabetes, Type II, Hypothyroidism, Obesity /BMI 30+ Hematologic History: Reports: Anemia, Blood Transfusion(s) Oncologic (Cancer) History: Reports: Leukemia Dermatologic History: Reports: Cellulitis - Infectious Disease History Infectious Disease History: Reports: MRSA - Past Surgical History HEENT Surgical History: Reports: Cataract Surgery, Oral Surgery GI Surgical History: Reports: Appendectomy, Cholecystectomy Female Surgical History: Reports: Tubal Ligation Neurological Surgical History: Reports: None Musculoskeletal Surgical History: Reports: Other (See Below) Oncologic Surgical History: Reports: None Social & Family History - Family History Family Medical History: Noncontributory - Tobacco Use Smoking Status *Q: Never Smoker Second Hand Smoke Exposure: No - Caffeine Use Caffeine Use: Reports: Coffee - Recreational Drug Use Recreational Drug Use: No - Living Situation & Occupation Living situation: Reports: , Assisted Living ([facility]) Occupation: Disabled H&P Review of Systems - Review of Systems: Review Of Systems: ROS reveals no pertinent complaints other than HPI. Exam - Exam Exam: See Below - Vital Signs Vital Signs: Last Vital Signs Temp 208.4 F H 02/23/19 02:21 Pulse 71 02/23/19 02:21 Resp 16 02/23/19 02:21 BP 103/63 02/23/19 02:21 Pulse Ox 100 02/22/19 23:32 Weight: 155 lb 14.4 oz - Exam General: Alert, Oriented HEENT: Conjunctiva Clear, Mucosa Moist & [place], Posterior Pharynx Clear Neck: Supple, Trachea Midline Lungs: Clear to Auscultation, Normal Respiratory Effort Cardiovascular: Regular Rate, Regular Rhythm GI/Abdominal Exam: Normal Bowel Sounds, Soft, Non-Tender, No Organomegaly, No Distention Back Exam: Normal Inspection Extremities: Normal Inspection, Normal Range of Motion, Normal Capillary Refill , Pedal Edema Skin: Warm, Dry, Intact Neurological: Cranial Nerves Intact Neuro Extensive - Mental Status: Alert, Normal Mood/Affect Psychiatric: Alert, Normal Affect, Normal Mood - Patient Data Lab Results Last 24 hrs: Laboratory Results - last 24 hr 02/22/19 02/22/19 02/22/19 Range/Units 21:05 21:05 21:05 WBC 7.33 (3.98-10.04) K/mm3 RBC 2.34 L (3.98-5.22) M/mm3 Hgb 7.4 L D (11.2-15.7) gm/L Hct 22.8 L (34.1-44.9) % MCV 97.4 H D (79.4-94.8) fl MCH 31.6 (25.6-32.2) pg MCHC 32.5 (32.2-35.5) g/dl RDW Std Deviation 66.7 H (36.4-46.3) fL Plt Count 213 (182-369) K/mm3 MPV 9.9 (9.4-12.3) fl Neut % (Auto) 62.1 (34.0-71.1) % Lymph % (Auto) 25.1 (19.3-51.7) % [place] % (Auto) 8.7 (4.7-12.5) % Eos % (Auto) 3.3 (0.7-5.8) Baso % (Auto) 0.7 (0.1-1.2) % Neut # (Auto) 4.55 (1.56-6.13) K/mm3 Lymph # (Auto) 1.84 (1.18-3.74) K/mm3 [place] # (Auto) 0.64 H (0.24-0.36) K/mm3 Eos # (Auto) 0.24 (0.04-0.36) K/mm3 Baso # (Auto) 0.05 (0.01-0.08) K/mm3 Manual Slide Review Abnormal smear Sodium 136 (136-145) mEq/L Potassium 3.9 (3.5-5.1) mEq/L Chloride 102 (98-107) mEq/L Carbon Dioxide 26 (21-32) mEq/L Anion Gap 11.9 (5-15) BUN 59 H (7-18) mg/dL Creatinine 1.4 H (0.55-1.02) mg/dL Est Cr Clr Drug Dosing 29.54 mL/min Estimated GFR (MDRD) 38 (>60) mL/min BUN/Creatinine Ratio 42.1 H (14-18) Glucose 153 H (80-115) mg/dL Calcium 8.8 (8.5-10.1) mg/dL Total Bilirubin 0.4 (0.2-1.0) mg/dL AST 43 H (15-37) U/L ALT 39 (14-59) U/L Alkaline Phosphatase 103 (46-116) U/L Total Protein 6.2 L (6.4-8.2) g/dl Albumin 2.8 L (3.4-5.0) g/dl Globulin 3.4 gm/dL Albumin/Globulin Ratio 0.8 L (1-2) Blood Type A POSITIVE Gel Antibody Screen Negative Crossmatch See Detail 02/23/19 Range/Units 05:49 WBC (3.98-10.04) K/mm3 RBC (3.98-5.22) M/mm3 Hgb 9.6 L D (11.2-15.7) gm/L Hct 28.7 L (34.1-44.9) % MCV (79.4-94.8) fl MCH (25.6-32.2) pg MCHC (32.2-35.5) g/dl RDW Std Deviation (36.4-46.3) fL Plt Count (182-369) K/mm3 MPV (9.4-12.3) fl Neut % (Auto) (34.0-71.1) % Lymph % (Auto) (19.3-51.7) % [place] % (Auto) (4.7-12.5) % Eos % (Auto) (0.7-5.8) Baso % (Auto) (0.1-1.2) % Neut # (Auto) (1.56-6.13) K/mm3 Lymph # (Auto) (1.18-3.74) K/mm3 [place] # (Auto) (0.24-0.36) K/mm3 Eos # (Auto) (0.04-0.36) K/mm3 Baso # (Auto) (0.01-0.08) K/mm3 Manual Slide Review Sodium (136-145) mEq/L Potassium (3.5-5.1) mEq/L Chloride (98-107) mEq/L Carbon Dioxide (21-32) mEq/L Anion Gap (5-15) BUN (7-18) mg/dL Creatinine (0.55-1.02) mg/dL Est Cr Clr Drug Dosing mL/min Estimated GFR (MDRD) (>60) mL/min BUN/Creatinine Ratio (14-18) Glucose (80-115) mg/dL Calcium (8.5-10.1) mg/dL Total Bilirubin (0.2-1.0) mg/dL AST (15-37) U/L ALT (14-59) U/L Alkaline Phosphatase (46-116) U/L Total Protein (6.4-8.2) g/dl Albumin (3.4-5.0) g/dl Globulin gm/dL Albumin/Globulin Ratio (1-2) Blood Type Gel Antibody Screen Crossmatch Result Diagrams: 02/23/19 05:49 02/22/19 21:05 - Problem List (1) Severe anemia SNOMED Code(s): 430151077 ICD Code: D64.9 - ANEMIA, UNSPECIFIED Status: Acute Current Visit: Yes Problem List Initiated/Reviewed/Updated: Yes Orders Last 24hrs: Active Orders 24 hr Category Date Time Status Patient Status [ADT] Routine ADT 02/22/19 22:35 Active Notify Provider Consults [RC] 07 Care 02/22/19 23:03 Active Up With Assistance [RC] ASDIRECTED Care 02/22/19 22:59 Active Consult to Physician [CONS] Routine Cons 02/23/19 07:00 Active Clear Liquid Diet [DIET] Diet 02/23/19 Breakfast Active PACKED CELLS [RED BLOOD CELLS LP] [BBK] Stat Lab 02/22/19 21:05 Results TYPE AND SCREEN [BBK] Stat Lab 02/22/19 21:05 Results Sodium Chloride 0.9% [Normal Saline] 250 ml Med 02/22/19 23:00 Active IV ASDIRECTED Transfuse PRBC [Transfuse Red Blood Cells] [COMM] Stat Oth 02/22/19 21:28 Ordered Code Status [Resuscitation Status] Routine Resus Stat 02/22/19 22:59 Ordered Medication Orders Sodium Chloride (Normal Saline) 250 mls @ 30 mls/hr IV ASDIRECTED CELI Last Admin: 02/22/19 23:14 Dose: 30 mls/hr Assessment/Plan Comment:: undifferentiated anemia * Although patient had a positive fecal occult blood test in the emergency room this was likely a false positive secondary to iron supplementation. * Dr. Kirby and surgery was consulted * Patient had a nice improvement in her hemoglobin with just 1 unit of packed red blood cells from 7.4-9.6. * No more blood transfusions at this time. * If patient is not a candidate for endoscopy she will be discharged home. chronic medical problems: Chronic myeloid leukemia, atypical chest pain, type 2 diabetes insulin-dependent, hypertension, hyperlipidemia, unspecified intellectual disabilities, bipolar disorder, dementia.
[2019-02-23] MEDS ORDERED: Nystatin Crm 30 GM Tube TOP PRN (06:13)
[2019-02-23] MEDS ORDERED: Ondansetron 4 MG Tab.DIS PRN (06:13)
[2019-02-23] MEDS ORDERED: Polyethylene Glycol 3350 Powder 17 GM Packet PO PRN (06:13)
[2019-02-23] MEDS ORDERED: guaiFENesin/Dextromethorphan 100-10 MG/5 ML Soln 5 ML Cup PO PRN (06:13)
[2019-02-23] MEDS ORDERED: 50% Dextrose in Water 50 ML Syringe IVPUSH PRN (06:16)
[2019-02-23] MEDS ORDERED: 50% Dextrose in Water 50 ML SDV IV PRN (08:25)
[2019-02-23] MEDS ORDERED: MEMANTINE HCL 5 MG PO SCH (09:00)
[2019-02-23] MEDS ORDERED: LEVOTHYROXINE 100 MCG PO SCH (09:00)
[2019-02-23] MEDS ORDERED: SPIRONOLACTONE 25 MG PO SCH (09:00)
[2019-02-23] MEDS ORDERED: CLONIDINE 0.3 MG PO SCH (09:00)
[2019-02-23] MEDS ORDERED: Metoprolol Succinate 25 MG Tab.ER ** PATIENT'S OWN MED PO SCH (09:00)
[2019-02-23] MEDS ORDERED: Carboxymethylcellulose Sodium 1% Ophth Gel 15 ML Bottle EYEBOTH SCH (09:00)
[2019-02-23] MEDS ORDERED: IMATINIB MESYLATE 600 MG PO SCH (09:00)
[2019-02-23] MEDS ORDERED: LOSARTAN 100 MG PO SCH (09:00)
[2019-02-23] MEDS ORDERED: PANTOPRAZOLE 40 MG PO SCH (09:00)
[2019-02-23] MEDS ORDERED: Bacitracin Oint 15 GM Tube TOP SCH (09:00)
[2019-02-23] MEDS: NOVOLOG FLEX PEN SUBCUT SCH ×2 (09:42→11:56)
[2019-02-23] MEDS: Furosemide 40 MG Tab *** PATIENT'S OWN PO SCH ×2 (10:06→15:10)
--- NOTE | 2019-02-23 16:06 | PCM.DCSUM1 ---
Discharge Summary - Hospital Course HPI Initial Comments: This 63-year-old female was admitted through the emergency room department for observation to receive a blood transfusion. Patient has a history of anemia with previous blood transfusions. Patient was scheduled to receive blood this morning as an outpatient, but understands at [facility] was concerned and referred her last night to the emergency room. Patient was found to have a hemoglobin of 7.4 and I was called for admission for observation. Patient was given 1 unit packed red blood cells overnight and her hemoglobin has increased to 9.6. Guaiac stools were done in the emergency room which were positive, but patient is on iron supplements. Patient does have a history of CML, Type 2 diabetes insulin-dependent, hypothyroidism, dementia, bipolar disorder, hypertension. Patient states that initially she did feel fatigued but is feeling better today after the transfusion. Diagnosis: Stroke: No - Discharge Data Discharge Date: 02/23/19 Discharge Disposition: DC/Tfer to [place] [id number] Condition: Good - Discharge Diagnosis/Problem(s) (1) Severe anemia SNOMED Code(s): 555777102 ICD Code: D64.9 - ANEMIA, UNSPECIFIED Status: Acute Current Visit: Yes - Patient Summary/Data Consults: Consultations 02/23/19 07:00 Consult to Physician [CONS] Routine - Patient Instructions Diet: Diabetic Diet Activity: As Tolerated Driving: Do Not Drive Showering/Bathing: January Shower - Discharge Plan *PRESCRIPTION DRUG MONITORING PROGRAM REVIEWED*: No *COPY OF PRESCRIPTION DRUG MONITORING REPORT IN PATIENT [place]: No Home Medications: Home Meds Acetaminophen 650 mg PO Q8H PRN 08/31/15 [History] Aspirin 81 mg PO DAILY 08/31/15 [History] Furosemide [Lasix] 40 mg PO TID 08/31/15 [History] Insulin Aspart [Novolog Flexpen] 6 units SUBCUT BIDMEALS 08/31/15 [History] Losartan Potassium [Cozaar] 100 mg PO DAILY 08/31/15 [History] Loxapine Succinate [Loxapine] 25 mg PO QPM 08/31/15 [History] Loxapine Succinate [Loxapine] 50 mg PO BEDTIME 08/31/15 [History] cloNIDine [Catapres] 0.3 mg PO BID 08/31/15 [History] traZODone 100 mg PO BEDTIME 08/31/15 [History] Dextromethorphan/guaiFENesin [Robitussin DM] 10 ml PO Q4H PRN 10/02/16 [History] Imatinib Mesylate [Gleevec] 600 mg PO DAILY 10/02/16 [History] Memantine HCl [Namenda] 5 mg PO DAILY 08/30/17 [History] Nystatin [Nystatin Crm] 1 applic TOP BID PRN 08/30/17 [History] Temazepam 30 mg PO BEDTIME 08/30/17 [History] atorvaSTATin [Lipitor] 10 mg PO DAILY 08/30/17 [History] Bacitracin [Bacitracin Oint] 1 applic TOP DAILY 01/19/18 [History] Carboxymethylcellulose Sodium [Refresh Tears 0.5%] 1 drop EYEBOTH BID 01/19/18 [ History] Ondansetron [Zofran ODT] 4 mg SL Q4HR PRN 01/19/18 [History] Spironolactone [Aldactone] 25 mg PO DAILY 01/19/18 [History] Levothyroxine Sodium [Synthroid] 100 mcg PO DAILY 01/21/18 [History] Metoprolol Succinate [Toprol XL] 25 mg PO DAILY 01/21/18 [History] Insulin Degludec [Tresiba] 13 units SQ BEDTIME 01/24/19 [History] Melatonin 5 mg PO BEDTIME 01/24/19 [History] Pantoprazole [ProTONIX] 40 mg PO BID 01/24/19 [History] Polyethylene Glycol 3350 [Miralax] 17 gm PO ASDIRECTED PRN 02/22/19 [History] Oxygen Therapy Mode: Room Air Referrals: Luís Cespedes MD [Primary Care Provider] - Austin Dow MD [Ordering Only Provider] - - Discharge Summary/Plan Comment DC Time >30 min.: No Discharge Summary/Plan Comment: undifferentiated anemia * Although patient had a positive fecal occult blood test in the emergency room this was likely a false positive secondary to iron supplementation. * Follow up with Dr. Cespedes and [facility] * Patient had a nice improvement in her hemoglobin with just 1 unit of packed red blood cells from 7.4-9.6. * No more blood transfusions at this time. - General Info Date of Service: 02/23/19 Admission Dx/Problem (Free Text: Admission Diagnosis/Problem Admission Diagnosis/Problem Anemia Functional Status: Reports: Pain Controlled - Review of Systems General: Reports: No Symptoms HEENT: Reports: No Symptoms Pulmonary: Reports: No Symptoms Cardiovascular: Reports: No Symptoms Gastrointestinal: Reports: No Symptoms - Patient Data Vitals - Most Recent: Last Vital Signs Temp 98.2 F 02/23/19 12:53 Pulse 67 02/23/19 12:53 Resp 14 02/23/19 12:53 BP 119/56 L 02/23/19 12:53 Pulse Ox 97 02/23/19 12:53 Weight - Most Recent: 155 lb 14.4 oz I&O - Last 24 hours: Intake & Output 02/23/19 02/23/19 02/23/19 06:59 14:59 22:59 Intake Total 2630 700 340 Output Total 1550 Balance 1080 700 340 Lab Results - Last 24 hrs: Laboratory Results - last 24 hr 02/22/19 02/22/19 02/22/19 Range/Units 21:05 21:05 21:05 WBC 7.33 (3.98-10.04) K/mm3 RBC 2.34 L (3.98-5.22) M/mm3 Hgb 7.4 L D (11.2-15.7) gm/L Hct 22.8 L (34.1-44.9) % MCV 97.4 H D (79.4-94.8) fl MCH 31.6 (25.6-32.2) pg MCHC 32.5 (32.2-35.5) g/dl RDW Std Deviation 66.7 H (36.4-46.3) fL Plt Count 213 (182-369) K/mm3 MPV 9.9 (9.4-12.3) fl Neut % (Auto) 62.1 (34.0-71.1) % Lymph % (Auto) 25.1 (19.3-51.7) % [place] % (Auto) 8.7 (4.7-12.5) % Eos % (Auto) 3.3 (0.7-5.8) Baso % (Auto) 0.7 (0.1-1.2) % Neut # (Auto) 4.55 (1.56-6.13) K/mm3 Lymph # (Auto) 1.84 (1.18-3.74) K/mm3 [place] # (Auto) 0.64 H (0.24-0.36) K/mm3 Eos # (Auto) 0.24 (0.04-0.36) K/mm3 Baso # (Auto) 0.05 (0.01-0.08) K/mm3 Manual Slide Review Abnormal smear Sodium 136 (136-145) mEq/L Potassium 3.9 (3.5-5.1) mEq/L Chloride 102 (98-107) mEq/L Carbon Dioxide 26 (21-32) mEq/L Anion Gap 11.9 (5-15) BUN 59 H (7-18) mg/dL Creatinine 1.4 H (0.55-1.02) mg/dL Est Cr Clr Drug Dosing 29.54 mL/min Estimated GFR (MDRD) 38 (>60) mL/min BUN/Creatinine Ratio 42.1 H (14-18) Glucose 153 H (80-115) mg/dL POC Glucose (80-115) mg/dL Calcium 8.8 (8.5-10.1) mg/dL Total Bilirubin 0.4 (0.2-1.0) mg/dL AST 43 H (15-37) U/L ALT 39 (14-59) U/L Alkaline Phosphatase 103 (46-116) U/L Total Protein 6.2 L (6.4-8.2) g/dl Albumin 2.8 L (3.4-5.0) g/dl Globulin 3.4 gm/dL Albumin/Globulin Ratio 0.8 L (1-2) Blood Type A POSITIVE Gel Antibody Screen Negative Crossmatch See Detail 02/23/19 02/23/19 02/23/19 Range/Units 05:49 09:36 11:51 WBC (3.98-10.04) K/mm3 RBC (3.98-5.22) M/mm3 Hgb 9.6 L D (11.2-15.7) gm/L Hct 28.7 L (34.1-44.9) % MCV (79.4-94.8) fl MCH (25.6-32.2) pg MCHC (32.2-35.5) g/dl RDW Std Deviation (36.4-46.3) fL Plt Count (182-369) K/mm3 MPV (9.4-12.3) fl Neut % (Auto) (34.0-71.1) % Lymph % (Auto) (19.3-51.7) % [place] % (Auto) (4.7-12.5) % Eos % (Auto) (0.7-5.8) Baso % (Auto) (0.1-1.2) % Neut # (Auto) (1.56-6.13) K/mm3 Lymph # (Auto) (1.18-3.74) K/mm3 [place] # (Auto) (0.24-0.36) K/mm3 Eos # (Auto) (0.04-0.36) K/mm3 Baso # (Auto) (0.01-0.08) K/mm3 Manual Slide Review Sodium (136-145) mEq/L Potassium (3.5-5.1) mEq/L Chloride (98-107) mEq/L Carbon Dioxide (21-32) mEq/L Anion Gap (5-15) BUN (7-18) mg/dL Creatinine (0.55-1.02) mg/dL Est Cr Clr Drug Dosing mL/min Estimated GFR (MDRD) (>60) mL/min BUN/Creatinine Ratio (14-18) Glucose (80-115) mg/dL POC Glucose 153 H 150 H (80-115) mg/dL Calcium (8.5-10.1) mg/dL Total Bilirubin (0.2-1.0) mg/dL AST (15-37) U/L ALT (14-59) U/L Alkaline Phosphatase (46-116) U/L Total Protein (6.4-8.2) g/dl Albumin (3.4-5.0) g/dl Globulin gm/dL Albumin/Globulin Ratio (1-2) Blood Type Gel Antibody Screen Crossmatch Med Orders - Current: Current Medications Artificial Tears (Refresh Liquigel 1%) 0 ml EYEBOTH BID [facility] Last Admin: 02/23/19 10:11 Dose: 1 drop Bacitracin (Bacitracin Oint) 0 gm TOP DAILY [facility] Last Admin: 02/23/19 10:05 Dose: 1 applic Dextrose/Water (Dextrose 50% In Water) 50 ml IV ASDIRECTED PRN PRN Reason: Hypoglycemia Furosemide (Lasix) 40 mg PO TID [facility] Last Admin: 02/23/19 15:10 Dose: 40 mg Guaifenesin/Phenylephrine HCl (Robitussin Dm) 10 ml PO Q4H PRN PRN Reason: Cough Sodium Chloride (Normal Saline) 250 mls @ 30 mls/hr IV ASDIRECTED [facility] Last Admin: 02/22/19 23:14 Dose: 30 mls/hr Levothyroxine Sodium (Synthroid) 100 mcg PO DAILY [facility] Last Admin: 02/23/19 10:12 Dose: 100 mcg Losartan Potassium (Cozaar) 100 mg PO DAILY [facility] Last Admin: 02/23/19 10:04 Dose: 100 mg Metoprolol Succinate (Toprol Xl) 25 mg PO DAILY [facility] Last Admin: 02/23/19 10:12 Dose: 25 mg Nystatin (Nystatin Crm) 0 gm TOP BID PRN PRN Reason: Itching Ondansetron HCl (Zofran Odt) 4 mg .XX Q4H PRN PRN Reason: Nausea/Vomiting Pantoprazole Sodium (Protonix) 40 mg PO BID [facility] Last Admin: 02/23/19 10:06 Dose: 40 mg Atorvastatin 10 Mg 0 each PO DAILY@1700 [facility] Clonidine [Catapres] (0.3 Mg) 0 each PO BID [facility] Last Admin: 02/23/19 10:06 Dose: 1 each Imatinib Mesylate [ (Gleevec] 600 Mg) 0 each PO DAILY [facility] Last Admin: 02/23/19 10:09 Dose: 3 each Novolog Flex Pen 0 each SUBCUT QIDACANDBED [facility]; Protocol Last Admin: 02/23/19 11:56 Dose: 1 each Loxapine 25 Mg 0 each PO QPM [facility] Loxapine 25 Mg 0 each PO BEDTIME [facility] Melatonin 5 Mg 0 each PO BEDTIME [facility] Memantine Hcl [ (Namenda] 5 Mg) 0 each PO DAILY [facility] Last Admin: 02/23/19 10:10 Dose: 1 each Trazodone 100 Mg 0 each PO BEDTIME [facility] Polyethylene Glycol (Miralax) 17 gm PO ASDIRECTED PRN PRN Reason: Constipation Spironolactone (Aldactone) 25 mg PO DAILY [facility] Last Admin: 02/23/19 10:02 Dose: 25 mg Temazepam (Restoril) 30 mg PO BEDTIME [facility] Discontinued Medications Dextrose/Water (Dextrose 50% In Water) 50 ml IVPUSH ASDIRECTED PRN PRN Reason: Hypoglycemia - Exam General: Reports: Alert, Oriented Lungs: Reports: Clear to Auscultation, Normal Respiratory Effort Cardiovascular: Reports: Regular Rate, Regular Rhythm GI/Abdominal Exam: Normal Bowel Sounds, Soft, Non-Tender, No Organomegaly, No Distention
[2019-02-23 16:37] VITALS: BP 132/87
[2019-02-23] MEDS ORDERED: LOXAPINE 25 MG PO SCH ×2 (18:00→21:00)
[2019-02-23] MEDS ORDERED: TEMAZEPAM 15 MG PO SCH (21:00)
== END 2019-02-23 16:35 ==
LOC: JD.ED 20:41 → JD.MS 22:40
PROVIDERS: ADMIT Family Medicine; ATTEND Family Medicine
DX: D64.9 Anemia, unspecified (principal); I11.0 Hypertensive heart disease with heart failure; I50.9 Heart failure, unspecified; E03.9 Hypothyroidism, unspecified; E78.00 Pure hypercholesterolemia, unspecified; F03.90 Unspecified dementia, unspecified severity, without behavioral disturbance, psychotic disturbance, mood disturbance, and anxiety; F31.9 Bipolar disorder, unspecified; R18.8 Other ascites; E66.9 Obesity, unspecified; Z68.30 Body mass index [BMI] 30.0-30.9, adult; Z85.6 Personal history of leukemia; Z86.718 Personal history of other venous thrombosis and embolism; Z98.890 Other specified postprocedural states; Z79.82 Long term (current) use of aspirin; Z79.4 Long term (current) use of insulin; Z88.7 Allergy status to serum and vaccine
CPT/HCPCS: 36415; 80053; 82962; 85014; 85018; 85025; 99284; A9270; J7050; P9016; 36430; 86850; 86900; 86901; 86922; G0378

== ENCOUNTER 2019-03-07 19:18 | Emergency (ER) | payer MEDICARE, MEDICAID ==
--- NOTE | 2019-03-07 19:59 | EDM.PDOC ---
ED HPI GENERAL MEDICAL PROBLEM - General Chief Complaint: Cardiovascular Problem Stated Complaint: DIZZY FATIGUE Time Seen by Provider: 03/07/19 19:54 - History of Present Illness INITIAL COMMENTS - FREE TEXT/NARRATIVE: 63-year-old female presents to the emergency room with lightheadedness when she laid down tonight The patient has a history of anemia needing intermittent transfusion secondary to GI blood loss. She is scheduled to have an colonoscopy in the next week and a half. She is not having associated breathing difficulty shortness of breath or chest pain. She doesn't seem to have dizziness with ambulation she has noticed tonight's episode when she laid down. She had a transfusion was 2 weeks ago with a hemoglobin of 7.7. - Related Data Allergies Allergy/AdvReac Type Severity Reaction Status Date / Time Influenza Virus Vaccines AdvReac Anxiety Verified 02/08/19 09:26 Home Meds: Home Meds Acetaminophen 650 mg PO Q8H PRN 08/31/15 [History] Aspirin 81 mg PO DAILY 08/31/15 [History] Furosemide [Lasix] 40 mg PO TID 08/31/15 [History] Insulin Aspart [Novolog Flexpen] 6 units SUBCUT BIDMEALS 08/31/15 [History] Losartan Potassium [Cozaar] 100 mg PO DAILY 08/31/15 [History] Loxapine Succinate [Loxapine] 25 mg PO QPM 08/31/15 [History] Loxapine Succinate [Loxapine] 50 mg PO BEDTIME 08/31/15 [History] cloNIDine [Catapres] 0.3 mg PO BID 08/31/15 [History] traZODone 100 mg PO BEDTIME 08/31/15 [History] Dextromethorphan/guaiFENesin [Robitussin DM] 10 ml PO Q4H PRN 10/02/16 [History] Imatinib Mesylate [Gleevec] 600 mg PO DAILY 10/02/16 [History] Memantine HCl [Namenda] 5 mg PO DAILY 08/30/17 [History] Nystatin [Nystatin Crm] 1 applic TOP BID PRN 08/30/17 [History] Temazepam 30 mg PO BEDTIME 08/30/17 [History] atorvaSTATin [Lipitor] 10 mg PO DAILY 08/30/17 [History] Bacitracin [Bacitracin Oint] 1 applic TOP DAILY 01/19/18 [History] Carboxymethylcellulose Sodium [Refresh Tears 0.5%] 1 drop EYEBOTH BID 01/19/18 [ History] Ondansetron [Zofran ODT] 4 mg SL Q4HR PRN 01/19/18 [History] Spironolactone [Aldactone] 25 mg PO DAILY 01/19/18 [History] Levothyroxine Sodium [Synthroid] 100 mcg PO DAILY 01/21/18 [History] Metoprolol Succinate [Toprol XL] 25 mg PO DAILY 01/21/18 [History] Insulin Degludec [Tresiba] 13 units SQ BEDTIME 01/24/19 [History] Melatonin 5 mg PO BEDTIME 01/24/19 [History] Pantoprazole [ProTONIX] 40 mg PO BID 01/24/19 [History] Polyethylene Glycol 3350 [Miralax] 17 gm PO ASDIRECTED PRN 02/22/19 [History] Past Medical History Other HEENT History: tooth abcess Cardiovascular History: Reports: Heart Failure, High Cholesterol, Hypertension Other Cardiovascular History: venous insufficiency, atypical chest pain; angina pectoris inspecified. Gastrointestinal History: Reports: GERD Other Gastrointestinal History: obesity, ascites Musculoskeletal History: Reports: Fracture Other Musculoskeletal History: fx two bones in foot 2.5yrs ago. Neurological History: Reports: None, Brain Injury, Other (See Below) Other Neuro History: personal history of traumatic brain injury Psychiatric History: Reports: Bipolar, Depression Other Psychiatric History: Check up with psychiatrist q3-4 months Endocrine/Metabolic History: Reports: Diabetes, Type II, Hypothyroidism, Obesity /BMI 30+ Hematologic History: Reports: Anemia, Blood Transfusion(s) Oncologic (Cancer) History: Reports: Leukemia Dermatologic History: Reports: Cellulitis - Infectious Disease History Infectious Disease History: Reports: MRSA - Past Surgical History HEENT Surgical History: Reports: Cataract Surgery, Oral Surgery GI Surgical History: Reports: Appendectomy, Cholecystectomy Female Surgical History: Reports: Tubal Ligation Neurological Surgical History: Reports: None Musculoskeletal Surgical History: Reports: Other (See Below) Oncologic Surgical History: Reports: None Social & Family History - Family History Family Medical History: Noncontributory - Tobacco Use Smoking Status *Q: Never Smoker - Caffeine Use Caffeine Use: Reports: Coffee - Recreational Drug Use Recreational Drug Use: No - Living Situation & Occupation Living situation: Reports: , Assisted Living ([place]) Occupation: Disabled ED ROS GENERAL - Review of Systems Review Of Systems: See Below Constitutional: Reports: No Symptoms HEENT: Reports: No Symptoms Respiratory: Reports: No Symptoms Cardiovascular: Reports: No Symptoms GI/Abdominal: Reports: No Symptoms Musculoskeletal: Reports: No Symptoms Neurological: Reports: No Symptoms ED EXAM, GENERAL - Physical Exam Exam: See Below Exam Limited By: No Limitations General Appearance: Alert, No Apparent Distress Nose: Normal Inspection, Normal Mucosa, No Blood Throat/Mouth: Normal Inspection, Normal Lips, Normal Teeth Neck: Normal Inspection, Supple, Non-Tender. No: Lymphadenopathy (L), Lymphadenopathy (R) Respiratory/Chest: No Respiratory Distress, Lungs Clear, Normal Breath Sounds Cardiovascular: Normal Peripheral Pulses, Regular Rate, Rhythm, No Edema GI/Abdominal: Normal Bowel Sounds, Soft, Non-Tender Neurological: Alert, Oriented Skin Exam: Warm, Dry Course - Vital Signs Last Recorded V/S: Last Vital Signs Temp 37.1 C 03/07/19 19:34 Pulse 80 03/07/19 19:34 Resp 16 03/07/19 19:34 BP 169/37 H 03/07/19 19:34 Pulse Ox 99 03/07/19 19:34 - Orders/Labs/Meds Orders: Active Orders 24 hr Category Date Time Status TYPE AND SCREEN [BBK] Stat Lab 03/07/19 21:24 Ordered Labs: Laboratory Tests 03/07/19 03/07/19 Range/Units 20:25 20:25 WBC 6.16 (3.98-10.04) K/mm3 RBC 2.45 L (3.98-5.22) M/mm3 Hgb 8.0 L D (11.2-15.7) gm/L Hct 24.5 L (34.1-44.9) % MCV 100.0 H (79.4-94.8) fl MCH 32.7 H (25.6-32.2) pg MCHC 32.7 (32.2-35.5) g/dl RDW Std Deviation 67.1 H (36.4-46.3) fL Plt Count 234 (182-369) K/mm3 MPV 9.4 (9.4-12.3) fl Neutrophils % (Manual) 66 H (40-60) % Band Neutrophils % 0 (0-10) % Lymphocytes % (Manual) 25 (20-40) % Atypical Lymphs % 0 % Monocytes % (Manual) 3 (2-10) % Eosinophils % (Manual) 4 (0.7-5.8) % Basophils % (Manual) 2 H (0.1-1.2) Platelet Estimate Adequate Anisocytosis 1+ slight Macrocytosis 1+ slight RBC Morph Comment Not Reportable Sodium 134 L (136-145) mEq/L Potassium 4.0 (3.5-5.1) mEq/L Chloride 100 (98-107) mEq/L Carbon Dioxide 27 (21-32) mEq/L Anion Gap 11.0 (5-15) BUN 65 H (7-18) mg/dL Creatinine 1.6 H (0.55-1.02) mg/dL Est Cr Clr Drug Dosing 25.85 mL/min Estimated GFR (MDRD) 33 (>60) mL/min BUN/Creatinine Ratio 40.6 H (14-18) Glucose 169 H (80-115) mg/dL Calcium 8.6 (8.5-10.1) mg/dL Total Bilirubin 0.3 (0.2-1.0) mg/dL AST 46 H (15-37) U/L ALT 40 (14-59) U/L Alkaline Phosphatase 106 (46-116) U/L Total Protein 6.3 L (6.4-8.2) g/dl Albumin 2.9 L (3.4-5.0) g/dl Globulin 3.4 gm/dL Albumin/Globulin Ratio 0.9 L (1-2) - Re-Assessments/Exams Free Text/Narrative Re-Assessment/Exam: 03/07/19 21:31 Hemoglobin is 8.0 at this point inevitably she will require a transfusion in the near future this does not need to happen [place]. Ashlyn with the patient and she is more comfortable with coming back in the morning to have it done as an outpatient rather than spending the majority of the night emergency room and being tired all day tomorrow. Departure - Departure Time of Disposition: 21:26 Disposition: Home, Self-Care 01 Clinical Impression: Lower GI bleed Anemia Qualifiers: 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 type: pancytopenia , antineoplastic chemotherapy-induced Qualified Code(s): D61.810 - Antineoplastic chemotherapy induced pancytopenia Referrals: Luís Cespedes MD [Primary Care Provider] - Forms: ED Department Discharge Additional Instructions: Return to the emergency room with any questions problems worsening symptoms. Return to the hospital tomorrow for a transfusion. - My Orders Last 24 Hours: My Active Orders 03/07/19 21:24 TYPE AND SCREEN [BBK] Stat - Assessment/Plan Last 24 Hours: My Active Orders 03/07/19 21:24 TYPE AND SCREEN [BBK] Stat
[2019-03-08 11:24] VITALS: BP 124/71
== END 2019-03-07 21:50 | disposition home or self-care (01) ==
LOC: JD.ED 19:18
DX: K92.2 Gastrointestinal hemorrhage, unspecified (principal); D61.810 Antineoplastic chemotherapy induced pancytopenia; C95.90 Leukemia, unspecified not having achieved remission; I11.0 Hypertensive heart disease with heart failure; I50.9 Heart failure, unspecified; E11.9 Type 2 diabetes mellitus without complications; E03.9 Hypothyroidism, unspecified; E66.9 Obesity, unspecified; Z90.49 Acquired absence of other specified parts of digestive tract; Z98.51 Tubal ligation status; Z98.49 Cataract extraction status, unspecified eye; Z98.890 Other specified postprocedural states; Z79.4 Long term (current) use of insulin; Z79.82 Long term (current) use of aspirin; Z88.7 Allergy status to serum and vaccine; Z79.899 Other long term (current) drug therapy
CPT/HCPCS: 36415; 80053; 85007; 85027; 86850; 86900; 86901; 86922; 99283; 99284

== ENCOUNTER 2019-06-13 19:10 | Inpatient (IN) | payer MEDICARE, MEDICAID ==
[~2019-06-13 19:10] MED LIST: Nystatin Crm 30 GM Tube TOP PRN
--- NOTE | 2019-06-13 19:36 | EDM.PDOC ---
ED HPI GENERAL MEDICAL PROBLEM - General Chief Complaint: Gastrointestinal Problem Stated Complaint: blood in stool and urine Time Seen by Provider: 06/13/19 19:32 Source of Information: Reports: Patient History Limitations: Reports: No Limitations - History of Present Illness INITIAL COMMENTS - FREE TEXT/NARRATIVE: 64-year-old female presents to the ED from [place] assisted-living/correction home. She reports that she's had blood in her stool 2 today with formed stool. She reports that bright red in color. HEENT with bowel movement. She believes that there is blood in her urine as well and she's noted this on several occasions today. No fever or chills. Patient has a history of chronic myelogenous leukemia and has been receiving frequent blood transfusions with 2 units thus far this month. Apparently received a unit of packed cells on 03 June and again on [address] Dow her oncologist. It's unclear if she is running a low platelet count. Patient has a history of very mild dementia. She has had a previous traumatic brain injury. She has a history of bipolar affective disorder. She thinks that she had a colonoscopy and upper GI endoscopy about 6 months ago and they did apparently find a lesion in her stomach. Unclear if this was an ulcer or not. She states her appetite is not as good as it used to be. Denies any dyspepsia. She is very fatigued and minimal exertion. Shortness of breath on exertion such as walking from the bedroom to the bathroom. Denies cough or sputum production. She states she did see Dr. Dow about a week ago in clinic. She remains on Gleevec-- 60mg po od which can cause GI hemorrhage. --Imatinib. It is for her CML. Patient has a history of hypertension and congestive heart failure and hypercholesterolemia. Onset: Today Onset Date: 06/13/19 (She comments that she seen blood in her urine on 3 occasions today and blood in her stool 2 today. She states this is not uncommon for her to have blood in her stool spent for off and on for many months ) Duration: Chronic, Getting Worse, Intermittent Location: Reports: Other (Patient reports blood in the urine and in her stool which is formed. Noted on 2 occasions today in the stool 3 times in the urine.) Quality: Reports: Other Severity: Moderate (Has no pain.) Improves with: Reports: None ( Moderate dyspnea and fatigue.) Worsens with: Reports: None Context: Reports: Other (History suggests a chronic bleeding diathesis from the bowel requiring recurrent blood transfusions. Complicated by the fact that she has chronic myelogenous leukemia apparently is not blastic.). Denies: Activity , Exercise, Lifting, Sick Contact, Trauma Associated Symptoms: Reports: Cough, Loss of Appetite, Malaise (Nonproductive cough at times), Shortness of Breath, Weakness (Generalized weakness). 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: Reports: Other (see below) (None.) - Related Data Allergies Allergy/AdvReac Type Severity Reaction Status Date / Time Influenza Virus Vaccines AdvReac Anxiety Verified 06/13/19 19:24 Home Meds: Home Meds Acetaminophen 650 mg PO Q8H PRN 08/31/15 [History] Aspirin 81 mg PO DAILY 08/31/15 [History] Furosemide [Lasix] 40 mg PO TID 08/31/15 [History] Insulin Aspart [Novolog Flexpen] 6 units SUBCUT BIDMEALS 08/31/15 [History] Losartan Potassium [Cozaar] 100 mg PO DAILY 08/31/15 [History] Loxapine Succinate [Loxapine] 25 mg PO QPM 08/31/15 [History] Loxapine Succinate [Loxapine] 50 mg PO BEDTIME 08/31/15 [History] cloNIDine [Catapres] 0.3 mg PO BID 08/31/15 [History] traZODone 100 mg PO BEDTIME 08/31/15 [History] Dextromethorphan/guaiFENesin [Robitussin DM] 10 ml PO Q4H PRN 10/02/16 [History] Imatinib Mesylate [Gleevec] 600 mg PO DAILY 10/02/16 [History] Memantine HCl [Namenda] 5 mg PO DAILY 08/30/17 [History] Nystatin [Nystatin Crm] 1 applic TOP BID PRN 08/30/17 [History] Temazepam 30 mg PO BEDTIME 08/30/17 [History] atorvaSTATin [Lipitor] 10 mg PO DAILY 08/30/17 [History] Carboxymethylcellulose Sodium [Refresh Tears 0.5%] 1 drop EYEBOTH BID 01/19/18 [ History] Ondansetron [Zofran ODT] 4 mg SL Q4HR PRN 01/19/18 [History] Spironolactone [Aldactone] 25 mg PO DAILY 01/19/18 [History] Levothyroxine Sodium [Synthroid] 100 mcg PO DAILY 01/21/18 [History] Metoprolol Succinate [Toprol XL] 25 mg PO DAILY 01/21/18 [History] Insulin Degludec [Tresiba] 13 units SQ BEDTIME 01/24/19 [History] Melatonin 5 mg PO BEDTIME 01/24/19 [History] Pantoprazole [ProTONIX] 40 mg PO BID 01/24/19 [History] Polyethylene Glycol 3350 [Miralax] 17 gm PO ASDIRECTED PRN 02/22/19 [History] Insulin Aspart [NovoLOG] 2 unit SQ ACDINNER 06/13/19 [History] Iron Polysaccharide Complex [Ferric X-150] 150 mg PO DAILY 06/13/19 [History] Silver Sulfadiazine [Silvadene 1% Cream 20 GM] 1 applic TOP DAILY 06/13/19 [ History] Past Medical History Other HEENT History: tooth abscess Cardiovascular History: Reports: Heart Failure, High Cholesterol, Hypertension Other Cardiovascular History: venous insufficiency, atypical chest pain; angina pectoris inspecified. 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 Neurological History: Reports: None, Brain Injury, Other (See Below) Other Neuro History: personal history of traumatic brain injury Psychiatric History: Reports: Bipolar, Depression Other Psychiatric History: Check up with psychiatrist q3-4 months Endocrine/Metabolic History: Reports: Diabetes, Type II, Hypothyroidism, Obesity /BMI 30+ Hematologic History: Reports: Anemia, Blood Transfusion(s) Immunologic History: Reports: None Oncologic (Cancer) History: Reports: Leukemia Dermatologic History: Reports: Cellulitis - Infectious Disease History Infectious Disease History: Reports: MRSA - Past Surgical History Head Surgeries/Procedures: Reports: None HEENT Surgical History: Reports: Cataract Surgery, Oral Surgery GI Surgical History: Reports: Appendectomy, Cholecystectomy Female Surgical History: Reports: Tubal Ligation Neurological Surgical History: Reports: None Other Musculoskeletal Surgeries/Procedures:: Left leg surgery. Oncologic Surgical History: Reports: None Social & Family History - Family History Family Medical History: Noncontributory - Tobacco Use Smoking Status *Q: Never Smoker - Caffeine Use Caffeine Use: Reports: None - Recreational Drug Use Recreational Drug Use: No - Living Situation & Occupation Living situation: Reports: , Assisted Living ([place]) Occupation: Disabled ED ROS GENERAL - Review of Systems Review Of Systems: See Below Constitutional: Reports: Malaise, Weakness, Fatigue, Decreased Appetite, Weight Loss. Denies: Fever, Chills HEENT: Reports: No Symptoms Respiratory: Reports: Shortness of Breath, Cough. Denies: Wheezing, Pleuritic Chest Pain Cardiovascular: Reports: Blood Pressure Problem, Dyspnea on Exertion (Chronic edema both lower extremities), Edema, Lightheadedness. Denies: Chest Pain ( Rare cough nonproductive), Claudication, Orthopnea (Chronic hypertension) Endocrine: Reports: Fatigue GI/Abdominal: Reports: Hematochezia, Nausea (Occasional nausea). Denies: Abdominal Pain, Constipation : Reports: Frequency (She reports gross hematuria 3 today.), Hematuria. Denies: Dysuria Musculoskeletal: Reports: Back Pain, Joint Pain (Knees hips low back neck at times) Skin: Reports: Bruising (Oozes extremely easily. Bruises both upper extremities both lower extremities) Neurological: Reports: Dizziness, Difficulty Walking (Use a walker.), Weakness. Denies: Confusion, Headache, Numbness, Paresthesia, Pre-Existing Deficit, Seizure, Syncope, Tingling, Tremors, Trouble Speaking Psychiatric: Reports: Anxiety, Other (History of bipolar affective disorder.) Hematologic/Lymphatic: Reports: Anemia, Easy Bleeding, Easy Bruising Immunologic: Reports: No Symptoms ED EXAM, GI/ABD - Physical Exam Exam: See Below Exam Limited By: No Limitations General Appearance: Alert, WD/WN, Moderate Distress, Other (Patient is extremely pallid clinically her hemoglobin appears to be 5 or less. Her vital signs are stable with temperature 36.4. Pulse of 68 in sinus respiratory 16 BP 1 4149 with sats are 98% on room air.) Eyes: Bilateral: Pale Conjunctiva (Extremely pallid. Suspect hemoglobin 5 or less.) Throat/Mouth: Normal Inspection, Normal Lips, Normal Oropharynx, Other. No: Normal Teeth Head: Atraumatic, Normocephalic Neck: Normal Inspection, Limited Range of Motion. No: Full Range of Motion, Lymphadenopathy (L), Lymphadenopathy (R) Respiratory/Chest: No Respiratory Distress, Lungs Clear, Rales Cardiovascular: Regular Rate, Rhythm, No Gallop, No Murmur, No Rub. No: Normal Peripheral Pulses, No Edema GI/Abdominal Exam: Normal Bowel Sounds, Soft, Non-Tender, Distended (Not not tympanitic to percussion.), Hepatomegaly (Believe that she has mild hepatomegaly 1 cm below the right costal margin), Splenomegaly (I believe I can feel the tip of her spleen). No: Abnormal Bowel Sounds Back Exam: Normal Inspection, Full Range of Motion. No: CVA Tenderness (L), CVA Tenderness (R) Extremities: Pedal Edema, Other (1-2+ pitting edema bilaterally. Both lower extremities are dark blue in color from chronic venous insufficiency and venous stasis dermatitis.) Neurological: Alert, Oriented, CN II-XII Intact, Normal Cognition. No: Normal Gait Psychiatric: Normal Affect, Normal Mood Skin Exam: Warm, Dry, Intact, Pallor (Extremely pallid peers ghostlike.). No: Normal Color EKG INTERPRETATION EKG Date: 06/13/19 Time: 20:10 Rhythm: Other (P-wave is inverted in lead V1?) Rate (Beats/Min): 66 [place]: LAD-Left [place] Deviation P-Wave: Present (Borderline first-degree AV block.) QRS: Other (Consider K to hypertrophy pattern. initial poor R-wave progression.) ST-T: Other (T-wave flattening in aVL nonspecific finding.) QT: Prolonged Course - Vital Signs Last Recorded V/S: Last Vital Signs Temp 36.4 C 06/13/19 19:22 Pulse 68 06/13/19 19:22 Resp 16 06/13/19 19:22 BP 141/49 H 06/13/19 19:22 Pulse Ox 98 06/13/19 19:22 Orthostatic Blood Pressure [ 125/44 Standing] Orthostatic Blood Pressure [ 143/51 Supine] - Orders/Labs/Meds Orders: Active Orders 24 hr Category Date Time Status EKG Documentation Completion [RC] STAT Care 06/13/19 19:32 Active Orthostatic Vital Signs [RC] ASDIRECTED Care 06/13/19 19:34 Active Chest 1V Frontal [CR] Stat Exams 06/13/19 19:32 Taken PACKED CELLS [RED BLOOD CELLS LP] [BBK] Stat Lab 06/13/19 20:00 Results TYPE AND SCREEN [BBK] Stat Lab 06/13/19 20:00 Results Sodium Chloride 0.9% [Normal Saline] 1,000 ml Med 06/13/19 19:45 Active IV ASDIRECTED Transfuse PRBC [Transfuse Red Blood Cells] [COMM] Oth 06/13/19 21:48 Ordered Urgent Medication Orders Sodium Chloride (Normal Saline) 1,000 mls @ 100 mls/hr IV ASDIRECTED CELI Last Admin: 06/13/19 20:17 Dose: 100 mls/hr Labs: Laboratory Tests 06/13/19 06/13/19 06/13/19 Range/Units 20:00 20:00 20:00 WBC 5.52 (3.98-10.04) K/mm3 RBC 2.55 L (3.98-5.22) M/mm3 Hgb 8.2 L (11.2-15.7) gm/L Hct 26.1 L (34.1-44.9) % MCV 102.4 H (79.4-94.8) fl MCH 32.2 (25.6-32.2) pg MCHC 31.4 L (32.2-35.5) g/dl RDW Std Deviation 75.9 H (36.4-46.3) fL Plt Count 214 (182-369) K/mm3 MPV 9.1 L (9.4-12.3) fl Neutrophils % (Manual) 56 (40-60) % Band Neutrophils % 0 (0-10) % Lymphocytes % (Manual) 39 (20-40) % Atypical Lymphs % 0 % Monocytes % (Manual) 3 (2-10) % Eosinophils % (Manual) 2 (0.7-5.8) % Basophils % (Manual) 0 L (0.1-1.2) Platelet Estimate Adequate Plt Morphology Comment Normal Hypochromasia 2+ moderate Anisocytosis 2+ moder RBC Morph Comment Not Reportable ESR (0-20) mm/hr PT 11.4 (9.7-12.0) SECONDS INR 1.05 APTT 25 (22-31) SECONDS Sodium 138 (136-145) mEq/L Potassium 4.1 (3.5-5.1) mEq/L Chloride 105 (98-107) mEq/L Carbon Dioxide 24 (21-32) mEq/L Anion Gap 13.1 (5-15) BUN 59 H (7-18) mg/dL Creatinine 1.6 H (0.55-1.02) mg/dL Est Cr Clr Drug Dosing 25.51 mL/min Estimated GFR (MDRD) 32 (>60) mL/min BUN/Creatinine Ratio 36.9 H (14-18) Glucose 151 H (80-115) mg/dL Calcium 9.0 (8.5-10.1) mg/dL Magnesium 2.1 (1.8-2.4) mg/dl Total Bilirubin 0.3 (0.2-1.0) mg/dL AST 37 (15-37) U/L ALT 29 (14-59) U/L Alkaline Phosphatase 73 (46-116) U/L C-Reactive Protein < 0.2 (<1.0) mg/dL NT-Pro-B Natriuret Pep (0-125) pg/mL Total Protein 6.9 (6.4-8.2) g/dl Albumin 3.2 L (3.4-5.0) g/dl Globulin 3.7 gm/dL Albumin/Globulin Ratio 0.9 L (1-2) Urine Color (Yellow) Urine Appearance (Clear) Urine pH (5.0-8.0) Ur Specific [place] (1.005-1.030) Urine Protein (Negative) Urine Glucose (UA) (Negative) Urine Ketones (Negative) Urine Occult Blood (Negative) Urine Nitrite (Negative) Urine Bilirubin (Negative) Urine Urobilinogen (0.2-1.0) Ur Leukocyte Esterase (Negative) Urine RBC (0-5) /hpf Urine WBC (0-5) /hpf Ur Squamous Epith Cells (0-5) /hpf Urine Bacteria (FEW) /hpf Urine Mucus (FEW) /hpf Blood Type Gel Antibody Screen Crossmatch 06/13/19 06/13/19 06/13/19 Range/Units 20:00 20:00 20:00 WBC (3.98-10.04) K/mm3 RBC (3.98-5.22) M/mm3 Hgb (11.2-15.7) gm/L Hct (34.1-44.9) % MCV (79.4-94.8) fl MCH (25.6-32.2) pg MCHC (32.2-35.5) g/dl RDW Std Deviation (36.4-46.3) fL Plt Count (182-369) K/mm3 MPV (9.4-12.3) fl Neutrophils % (Manual) (40-60) % Band Neutrophils % (0-10) % Lymphocytes % (Manual) (20-40) % Atypical Lymphs % % Monocytes % (Manual) (2-10) % Eosinophils % (Manual) (0.7-5.8) % Basophils % (Manual) (0.1-1.2) Platelet Estimate Plt Morphology Comment Hypochromasia Anisocytosis RBC Morph Comment ESR 40 H (0-20) mm/hr PT (9.7-12.0) SECONDS INR APTT (22-31) SECONDS Sodium (136-145) mEq/L Potassium (3.5-5.1) mEq/L Chloride (98-107) mEq/L Carbon Dioxide (21-32) mEq/L Anion Gap (5-15) BUN (7-18) mg/dL Creatinine (0.55-1.02) mg/dL Est Cr Clr Drug Dosing mL/min Estimated GFR (MDRD) (>60) mL/min BUN/Creatinine Ratio (14-18) Glucose (80-115) mg/dL Calcium (8.5-10.1) mg/dL Magnesium (1.8-2.4) mg/dl Total Bilirubin (0.2-1.0) mg/dL AST (15-37) U/L ALT (14-59) U/L Alkaline Phosphatase (46-116) U/L C-Reactive Protein (<1.0) mg/dL NT-Pro-B Natriuret Pep 224 H (0-125) pg/mL Total Protein (6.4-8.2) g/dl Albumin (3.4-5.0) g/dl Globulin gm/dL Albumin/Globulin Ratio (1-2) Urine Color (Yellow) Urine Appearance (Clear) Urine pH (5.0-8.0) Ur Specific [place] (1.005-1.030) Urine Protein (Negative) Urine Glucose (UA) (Negative) Urine Ketones (Negative) Urine Occult Blood (Negative) Urine Nitrite (Negative) Urine Bilirubin (Negative) Urine Urobilinogen (0.2-1.0) Ur Leukocyte Esterase (Negative) Urine RBC (0-5) /hpf Urine WBC (0-5) /hpf Ur Squamous Epith Cells (0-5) /hpf Urine Bacteria (FEW) /hpf Urine Mucus (FEW) /hpf Blood Type A POSITIVE Gel Antibody Screen Negative Crossmatch See Detail 06/13/19 Range/Units 20:15 WBC (3.98-10.04) K/mm3 RBC (3.98-5.22) M/mm3 Hgb (11.2-15.7) gm/L Hct (34.1-44.9) % MCV (79.4-94.8) fl MCH (25.6-32.2) pg MCHC (32.2-35.5) g/dl RDW Std Deviation (36.4-46.3) fL Plt Count (182-369) K/mm3 MPV (9.4-12.3) fl Neutrophils % (Manual) (40-60) % Band Neutrophils % (0-10) % Lymphocytes % (Manual) (20-40) % Atypical Lymphs % % Monocytes % (Manual) (2-10) % Eosinophils % (Manual) (0.7-5.8) % Basophils % (Manual) (0.1-1.2) Platelet Estimate Plt Morphology Comment Hypochromasia Anisocytosis RBC Morph Comment ESR (0-20) mm/hr PT (9.7-12.0) SECONDS INR APTT (22-31) SECONDS Sodium (136-145) mEq/L Potassium (3.5-5.1) mEq/L Chloride (98-107) mEq/L Carbon Dioxide (21-32) mEq/L Anion Gap (5-15) BUN (7-18) mg/dL Creatinine (0.55-1.02) mg/dL Est Cr Clr Drug Dosing mL/min Estimated GFR (MDRD) (>60) mL/min BUN/Creatinine Ratio (14-18) Glucose (80-115) mg/dL Calcium (8.5-10.1) mg/dL Magnesium (1.8-2.4) mg/dl Total Bilirubin (0.2-1.0) mg/dL AST (15-37) U/L ALT (14-59) U/L Alkaline Phosphatase (46-116) U/L C-Reactive Protein (<1.0) mg/dL NT-Pro-B Natriuret Pep (0-125) pg/mL Total Protein (6.4-8.2) g/dl Albumin (3.4-5.0) g/dl Globulin gm/dL Albumin/Globulin Ratio (1-2) Urine Color Yellow (Yellow) Urine Appearance Clear (Clear) Urine pH 6.5 (5.0-8.0) Ur Specific [place] 1.015 (1.005-1.030) Urine Protein Negative (Negative) Urine Glucose (UA) Negative (Negative) Urine Ketones Negative (Negative) Urine Occult Blood Negative (Negative) Urine Nitrite Negative (Negative) Urine Bilirubin Negative (Negative) Urine Urobilinogen 0.2 (0.2-1.0) Ur Leukocyte Esterase Negative (Negative) Urine RBC Not seen (0-5) /hpf Urine WBC Not seen (0-5) /hpf Ur Squamous Epith Cells 0-5 (0-5) /hpf Urine Bacteria Not seen (FEW) /hpf Urine Mucus Not seen (FEW) /hpf Blood Type Gel Antibody Screen Crossmatch Meds: Medications Generic Name Dose Route Start Last Admin Trade Name Freq PRN Reason Stop Dose Admin Sodium Chloride 1,000 mls @ 100 mls/hr 06/13/19 19:45 06/13/19 20:17 Normal Saline IV 100 mls/hr ASDIRECTED CELI Administration Discontinued Medications Generic Name Dose Route Start Last Admin Trade Name Freq PRN Reason Stop Dose Admin Pantoprazole Sodium 80 mg 06/13/19 21:07 06/13/19 21:26 Protonix Iv IVPUSH 06/13/19 21:08 80 mg BOLUS ONE Administration - Radiology Interpretation Free Text/Narrative:: 64-year-old female presents to the ED for evaluation of reported bleeding per rectum and blood in her urine that she is appreciated 3 times a day. She thinks she's had bloody stool formed up 2 today. She states she sees blood in her stool intermittently almost every second or third day. She is unknown patient with chronic myelogenous leukemia and is on Gleevec 600 mg a day to try and keep her in remission. It is known to cause gastric intestinal hemorrhage. She is extremely pallid I bet her hemoglobin is somewhere around 5. She'll be cross matched medially for 2 units of packed cells. She's had blood transfused on the second of this month and again on the sixth ordered by Dr. Dow oncologist. Appears to have a significant blood loss likely in the GI tract. She reports upper and lower GI endoscopy about 6 months ago with apparently a lesion identified in her stomach. Unclear if this was an ulcer. She is on omeprazole daily. She still on aspirin 81 mg a day as well. When she will have a catheter urine specimen so that we can tell for sure if there is gross hematuria. Rule out infection. Guaiac will be done on the stool. She will have one view chest x -ray routine labs include BNP and coags. - Re-Assessments/Exams Free Text/Narrative Re-Assessment/Exam: 06/13/19 20:16 stool is guaiac positive. Portable chest x-ray is within normal limits. Cardiac silhouette is normal visualized portion of the lung luna are normal. Right hemidiaphragm may be slightly elevated. Left lung appears to be mildly hyperinflated. 06/13/19 21:06 Labs are back. Total white count is 5.52. Differentials 56% neutrophils no bands cells and 39% lymphocytes 2+ hypochromasia and 2+ a cytosis on the slide. Hemoglobin is low at 8.2 with a hematocrit of 26.1. MCV elevated 102.4. Platelet count 214,000. Her coags are normal with a PT of 11.4 and INR 1.05 and PTT of 25. Sodium 138 with a potassium of 4.1 chloride 105 bicarbonate 24. And a gap is 13.1.. BUN is elevated at 59 . This suggests she likely has an upper GI bleeding source. Creatinine is 1.6. e GFR is 32 ie. Stage III chronic kidney disease. BUN/creatinine ratio is markedly elevated 36.9. Glucose is 151. Calcium is 9.0. Magnesium is 2.1 liver function normal. C- reactive protein less than 0.2. BNP minimally elevated at 224. Total proteins 6.9 with an albumin fraction slightly low at 3.2. Urinalysis obtained by catheterization does not show any red blood cells. Leukocyte esterase is reportedly negative as well. The micro reveals no signs of infection or bleeding. 06/13/19 21:[address] Kirby public relations officer surgeon and he is available tomorrow to do an upper GI endoscopy to see if she has a source of upper GI bleeding. I discussed the case with Dr. Arteaga public relations officer hospitalist and the patient be admitted to the med surgery floor on observation status. Receive 1 unit of packed cells over the next 3 hours. It is an extra unit on hand if she needs one. She has received Protonix 80 mg IV. Concern is whether aspirin or Plavix or the combination is causing persistent upper GI bleeding source. Departure - Departure Time of Disposition: 21:55 Disposition: Refer to Observation Condition: Fair Clinical Impression: Recurrent gastrointestinal hemorrhage, Upper GI bleed, CML (chronic myelocytic leukemia) Anemia Qualifiers: 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 type: pancytopenia , antineoplastic chemotherapy-induced Qualified Code(s): D61.810 - Antineoplastic chemotherapy induced pancytopenia - Discharge Information *PRESCRIPTION DRUG MONITORING PROGRAM REVIEWED*: Not Applicable *COPY OF PRESCRIPTION DRUG MONITORING REPORT IN PATIENT KAELA: Not Applicable Instructions: Blood Transfusion, Adult, [id number] Referrals: Luís Cespedes MD [Primary Care Provider] - Forms: ED Department Discharge - My Orders Last 24 Hours: My Active Orders 06/13/19 19:32 EKG Documentation Completion [RC] STAT Chest 1V Frontal [CR] Stat 06/13/19 19:34 Orthostatic Vital Signs [RC] ASDIRECTED 06/13/19 19:45 Sodium Chloride 0.9% [Normal Saline] 1,000 ml IV ASDIRECTED 06/13/19 20:00 PACKED CELLS [RED BLOOD CELLS LP] [BBK] Stat TYPE AND SCREEN [BBK] Stat 06/13/19 21:48 Transfuse PRBC [Transfuse Red Blood Cells] [COMM] Urgent - Assessment/Plan Last 24 Hours: My Active Orders 06/13/19 19:32 EKG Documentation Completion [RC] STAT Chest 1V Frontal [CR] Stat 06/13/19 19:34 Orthostatic Vital Signs [RC] ASDIRECTED 06/13/19 19:45 Sodium Chloride 0.9% [Normal Saline] 1,000 ml IV ASDIRECTED 06/13/19 20:00 PACKED CELLS [RED BLOOD CELLS LP] [BBK] Stat TYPE AND SCREEN [BBK] Stat 06/13/19 21:48 Transfuse PRBC [Transfuse Red Blood Cells] [COMM] Urgent
[2019-06-13] MEDS ORDERED: Sodium Chloride 0.9% 1,000 ML IV SCH (19:45)
[2019-06-13] MEDS ORDERED: Pantoprazole 40 MG Vial IVPUSH ONE (21:07)
[2019-06-13] MEDS ORDERED: Temazepam 30 MG Cap PO ONE (22:01)
[2019-06-13] MEDS ORDERED: Furosemide 20 MG/2 ML VIAL IVPUSH ONE (22:02)
--- NOTE | 2019-06-13 23:29 | PCM.HP.2 ---
H&P History of Present Illness - General Date of Service: 06/13/19 Admit Problem/Dx: Admission Diagnosis/Problem Admission Diagnosis/Problem Anemia - History of Present Illness Initial Comments - Free Text/Narative: 64-year-old developmentally handicapped female who is a poor historian submitted under observation secondary to anemia due to hematochezia. When I evaluated the patient she had been given prescription medication for most of the history is from the emergency room physician's notes. Patient reported having blood in her stools 2 times today with formed stools. She told me that she had diarrhea last night. She believes that this been blood in her stool and urine as well for a few days. She denies any abdominal pain, fever, chills. She has a history of chronic myelogenous leukemia and has received 2 blood transfusions this month. Patient believes that she had a colonoscopy and upper endoscopy approximately 6 months ago and they found a lesion in her stomach. Patient continues on one baby aspirin in the morning and 2 in the evening. Chest states that she is tired more than normal. Denies any shortness breath, chest pain, abdominal pain. In the emergency room she was found to be anemic with a hemoglobin of 8.2. Stool for occult blood was positive. Coags were normal as well as electrolytes. BUN was elevated at 59. Creatinine was 1.6 with a GFR of 32. She is diabetic and glucose was elevated at 151. C-reactive protein was less than 0.2. BNP was 224. Total white count was 5.5-1 platelets of 214. Patient was given Protonix 80 mg IV and started on 1 unit of packed red blood cells. Dr. Kirby is planning on upper endoscopy tomorrow. - Related Data Allergies/Adverse Reactions: Allergies Allergy/AdvReac Type Severity Reaction Status Date / Time Influenza Virus Vaccines AdvReac Anxiety Verified 06/13/19 19:24 Home Medications: Home Meds Acetaminophen 650 mg PO Q8H PRN 08/31/15 [History] Aspirin 81 mg PO DAILY 08/31/15 [History] Furosemide [Lasix] 40 mg PO TID 08/31/15 [History] Insulin Aspart [Novolog Flexpen] 6 units SUBCUT BIDMEALS 08/31/15 [History] Losartan Potassium [Cozaar] 100 mg PO DAILY 08/31/15 [History] Loxapine Succinate [Loxapine] 25 mg PO QPM 08/31/15 [History] Loxapine Succinate [Loxapine] 50 mg PO BEDTIME 08/31/15 [History] cloNIDine [Catapres] 0.3 mg PO BID 08/31/15 [History] traZODone 100 mg PO BEDTIME 08/31/15 [History] Dextromethorphan/guaiFENesin [Robitussin DM] 10 ml PO Q4H PRN 10/02/16 [History] Imatinib Mesylate [Gleevec] 600 mg PO DAILY 10/02/16 [History] Memantine HCl [Namenda] 5 mg PO DAILY 08/30/17 [History] Nystatin [Nystatin Crm] 1 applic TOP BID PRN 08/30/17 [History] Temazepam 30 mg PO BEDTIME 08/30/17 [History] atorvaSTATin [Lipitor] 10 mg PO DAILY 08/30/17 [History] Carboxymethylcellulose Sodium [Refresh Tears 0.5%] 1 drop EYEBOTH BID 01/19/18 [ History] Ondansetron [Zofran ODT] 4 mg SL Q4HR PRN 01/19/18 [History] Spironolactone [Aldactone] 25 mg PO DAILY 01/19/18 [History] Levothyroxine Sodium [Synthroid] 100 mcg PO DAILY 01/21/18 [History] Metoprolol Succinate [Toprol XL] 25 mg PO DAILY 01/21/18 [History] Insulin Degludec [Tresiba] 13 units SQ BEDTIME 01/24/19 [History] Melatonin 5 mg PO BEDTIME 01/24/19 [History] Pantoprazole [ProTONIX] 40 mg PO BID 01/24/19 [History] Polyethylene Glycol 3350 [Miralax] 17 gm PO ASDIRECTED PRN 02/22/19 [History] Insulin Aspart [NovoLOG] 2 unit SQ ACDINNER 06/13/19 [History] Iron Polysaccharide Complex [Ferric X-150] 150 mg PO DAILY 06/13/19 [History] Silver Sulfadiazine [Silvadene 1% Cream 20 GM] 1 applic TOP DAILY 06/13/19 [ History] Past Medical History Other HEENT History: tooth abscess Cardiovascular History: Reports: Heart Failure, High Cholesterol, Hypertension Other Cardiovascular History: venous insufficiency, atypical chest pain; angina pectoris inspecified. Respiratory History: Reports: None Gastrointestinal History: Reports: GERD, GI Bleed Other Gastrointestinal History: obesity, ascites Other Genitourinary History: Hematuria BUSINESS ANALYSIS SPECIALIST History: Reports: None Musculoskeletal History: Reports: Fracture Other Musculoskeletal History: fx two bones in foot 2.5yrs ago. Neurological History: Reports: None, Brain Injury, Other (See Below) Other Neuro History: personal history of traumatic brain injury Psychiatric History: Reports: Bipolar, Depression Other Psychiatric History: Check up with psychiatrist q3-4 months Endocrine/Metabolic History: Reports: Diabetes, Type II, Hypothyroidism, Obesity /BMI 30+ Hematologic History: Reports: Anemia, Blood Transfusion(s) Immunologic History: Reports: None Oncologic (Cancer) History: Reports: Leukemia Dermatologic History: Reports: Cellulitis - Infectious Disease History Infectious Disease History: Reports: MRSA - Past Surgical History Head Surgeries/Procedures: Reports: None HEENT Surgical History: Reports: Cataract Surgery, Oral Surgery GI Surgical History: Reports: Appendectomy, Cholecystectomy Female Surgical History: Reports: Tubal Ligation Neurological Surgical History: Reports: None Other Musculoskeletal Surgeries/Procedures:: Left leg surgery. Oncologic Surgical History: Reports: None Social & Family History - Family History Family Medical History: Noncontributory - Tobacco Use Smoking Status *Q: Never Smoker - Caffeine Use Caffeine Use: Reports: None - Recreational Drug Use Recreational Drug Use: No - Living Situation & Occupation Living situation: Reports: , Assisted Living ([facility]) Occupation: Disabled H&P Review of Systems - Review of Systems: Review Of Systems: ROS reveals no pertinent complaints other than HPI. Exam - Exam Exam: See Below - Vital Signs Vital Signs: Last Vital Signs Temp 96.8 F 06/13/19 22:20 Pulse 58 L 06/13/19 22:20 Resp 12 06/13/19 22:20 BP 110/34 L 06/13/19 22:20 Pulse Ox 98 06/13/19 19:22 Orthostatic Blood Pressure [ 125/44 Standing] Orthostatic Blood Pressure [ 143/51 Supine] Weight: 142 lb - Exam Quality Assessment: Supplemental Oxygen General: Alert, Oriented, 4 HEENT: Conjunctiva Clear, EACs Clear, Hearing Intact Neck: Supple, Trachea Midline, 2 Lungs: Clear to Auscultation, Normal Respiratory Effort Cardiovascular: Regular Rate, Regular Rhythm GI/Abdominal Exam: Normal Bowel Sounds, Soft, Non-Tender, No Organomegaly, No Distention, No Abnormal Bruit, No Mass Extremities: Normal Inspection, Normal Range of Motion, Non-Tender, No Pedal Edema, Normal Capillary Refill Skin: Warm, Dry, Intact Neuro Extensive - Mental Status: Alert, Oriented x3, Normal Mood/Affect, Normal Cognition, Memory Intact - Patient Data Lab Results Last 24 hrs: Laboratory Results - last 24 hr 06/13/19 06/13/19 06/13/19 Range/Units 20:00 20:00 20:00 WBC 5.52 (3.98-10.04) K/mm3 RBC 2.55 L (3.98-5.22) M/mm3 Hgb 8.2 L (11.2-15.7) gm/L Hct 26.1 L (34.1-44.9) % MCV 102.4 H (79.4-94.8) fl MCH 32.2 (25.6-32.2) pg MCHC 31.4 L (32.2-35.5) g/dl RDW Std Deviation 75.9 H (36.4-46.3) fL Plt Count 214 (182-369) K/mm3 MPV 9.1 L (9.4-12.3) fl Neutrophils % (Manual) 56 (40-60) % Band Neutrophils % 0 (0-10) % Lymphocytes % (Manual) 39 (20-40) % Atypical Lymphs % 0 % Monocytes % (Manual) 3 (2-10) % Eosinophils % (Manual) 2 (0.7-5.8) % Basophils % (Manual) 0 L (0.1-1.2) Platelet Estimate Adequate Plt Morphology Comment Normal Hypochromasia 2+ moderate Anisocytosis 2+ moder RBC Morph Comment Not Reportable ESR (0-20) mm/hr PT 11.4 (9.7-12.0) SECONDS INR 1.05 APTT 25 (22-31) SECONDS Sodium 138 (136-145) mEq/L Potassium 4.1 (3.5-5.1) mEq/L Chloride 105 (98-107) mEq/L Carbon Dioxide 24 (21-32) mEq/L Anion Gap 13.1 (5-15) BUN 59 H (7-18) mg/dL Creatinine 1.6 H (0.55-1.02) mg/dL Est Cr Clr Drug Dosing 25.51 mL/min Estimated GFR (MDRD) 32 (>60) mL/min BUN/Creatinine Ratio 36.9 H (14-18) Glucose 151 H (80-115) mg/dL Calcium 9.0 (8.5-10.1) mg/dL Magnesium 2.1 (1.8-2.4) mg/dl Total Bilirubin 0.3 (0.2-1.0) mg/dL AST 37 (15-37) U/L ALT 29 (14-59) U/L Alkaline Phosphatase 73 (46-116) U/L C-Reactive Protein < 0.2 (<1.0) mg/dL NT-Pro-B Natriuret Pep (0-125) pg/mL Total Protein 6.9 (6.4-8.2) g/dl Albumin 3.2 L (3.4-5.0) g/dl Globulin 3.7 gm/dL Albumin/Globulin Ratio 0.9 L (1-2) Urine Color (Yellow) Urine Appearance (Clear) Urine pH (5.0-8.0) Ur Specific [place] (1.005-1.030) Urine Protein (Negative) Urine Glucose (UA) (Negative) Urine Ketones (Negative) Urine Occult Blood (Negative) Urine Nitrite (Negative) Urine Bilirubin (Negative) Urine Urobilinogen (0.2-1.0) Ur Leukocyte Esterase (Negative) Urine RBC (0-5) /hpf Urine WBC (0-5) /hpf Ur Squamous Epith Cells (0-5) /hpf Urine Bacteria (FEW) /hpf Urine Mucus (FEW) /hpf Blood Type Gel Antibody Screen Crossmatch 06/13/19 06/13/19 06/13/19 Range/Units 20:00 20:00 20:00 WBC (3.98-10.04) K/mm3 RBC (3.98-5.22) M/mm3 Hgb (11.2-15.7) gm/L Hct (34.1-44.9) % MCV (79.4-94.8) fl MCH (25.6-32.2) pg MCHC (32.2-35.5) g/dl RDW Std Deviation (36.4-46.3) fL Plt Count (182-369) K/mm3 MPV (9.4-12.3) fl Neutrophils % (Manual) (40-60) % Band Neutrophils % (0-10) % Lymphocytes % (Manual) (20-40) % Atypical Lymphs % % Monocytes % (Manual) (2-10) % Eosinophils % (Manual) (0.7-5.8) % Basophils % (Manual) (0.1-1.2) Platelet Estimate Plt Morphology Comment Hypochromasia Anisocytosis RBC Morph Comment ESR 40 H (0-20) mm/hr PT (9.7-12.0) SECONDS INR APTT (22-31) SECONDS Sodium (136-145) mEq/L Potassium (3.5-5.1) mEq/L Chloride (98-107) mEq/L Carbon Dioxide (21-32) mEq/L Anion Gap (5-15) BUN (7-18) mg/dL Creatinine (0.55-1.02) mg/dL Est Cr Clr Drug Dosing mL/min Estimated GFR (MDRD) (>60) mL/min BUN/Creatinine Ratio (14-18) Glucose (80-115) mg/dL Calcium (8.5-10.1) mg/dL Magnesium (1.8-2.4) mg/dl Total Bilirubin (0.2-1.0) mg/dL AST (15-37) U/L ALT (14-59) U/L Alkaline Phosphatase (46-116) U/L C-Reactive Protein (<1.0) mg/dL NT-Pro-B Natriuret Pep 224 H (0-125) pg/mL Total Protein (6.4-8.2) g/dl Albumin (3.4-5.0) g/dl Globulin gm/dL Albumin/Globulin Ratio (1-2) Urine Color (Yellow) Urine Appearance (Clear) Urine pH (5.0-8.0) Ur Specific [place] (1.005-1.030) Urine Protein (Negative) Urine Glucose (UA) (Negative) Urine Ketones (Negative) Urine Occult Blood (Negative) Urine Nitrite (Negative) Urine Bilirubin (Negative) Urine Urobilinogen (0.2-1.0) Ur Leukocyte Esterase (Negative) Urine RBC (0-5) /hpf Urine WBC (0-5) /hpf Ur Squamous Epith Cells (0-5) /hpf Urine Bacteria (FEW) /hpf Urine Mucus (FEW) /hpf Blood Type A POSITIVE Gel Antibody Screen Negative Crossmatch See Detail 06/13/19 Range/Units 20:15 WBC (3.98-10.04) K/mm3 RBC (3.98-5.22) M/mm3 Hgb (11.2-15.7) gm/L Hct (34.1-44.9) % MCV (79.4-94.8) fl MCH (25.6-32.2) pg MCHC (32.2-35.5) g/dl RDW Std Deviation (36.4-46.3) fL Plt Count (182-369) K/mm3 MPV (9.4-12.3) fl Neutrophils % (Manual) (40-60) % Band Neutrophils % (0-10) % Lymphocytes % (Manual) (20-40) % Atypical Lymphs % % Monocytes % (Manual) (2-10) % Eosinophils % (Manual) (0.7-5.8) % Basophils % (Manual) (0.1-1.2) Platelet Estimate Plt Morphology Comment Hypochromasia Anisocytosis RBC Morph Comment ESR (0-20) mm/hr PT (9.7-12.0) SECONDS INR APTT (22-31) SECONDS Sodium (136-145) mEq/L Potassium (3.5-5.1) mEq/L Chloride (98-107) mEq/L Carbon Dioxide (21-32) mEq/L Anion Gap (5-15) BUN (7-18) mg/dL Creatinine (0.55-1.02) mg/dL Est Cr Clr Drug Dosing mL/min Estimated GFR (MDRD) (>60) mL/min BUN/Creatinine Ratio (14-18) Glucose (80-115) mg/dL Calcium (8.5-10.1) mg/dL Magnesium (1.8-2.4) mg/dl Total Bilirubin (0.2-1.0) mg/dL AST (15-37) U/L ALT (14-59) U/L Alkaline Phosphatase (46-116) U/L C-Reactive Protein (<1.0) mg/dL NT-Pro-B Natriuret Pep (0-125) pg/mL Total Protein (6.4-8.2) g/dl Albumin (3.4-5.0) g/dl Globulin gm/dL Albumin/Globulin Ratio (1-2) Urine Color Yellow (Yellow) Urine Appearance Clear (Clear) Urine pH 6.5 (5.0-8.0) Ur Specific [place] 1.015 (1.005-1.030) Urine Protein Negative (Negative) Urine Glucose (UA) Negative (Negative) Urine Ketones Negative (Negative) Urine Occult Blood Negative (Negative) Urine Nitrite Negative (Negative) Urine Bilirubin Negative (Negative) Urine Urobilinogen 0.2 (0.2-1.0) Ur Leukocyte Esterase Negative (Negative) Urine RBC Not seen (0-5) /hpf Urine WBC Not seen (0-5) /hpf Ur Squamous Epith Cells 0-5 (0-5) /hpf Urine Bacteria Not seen (FEW) /hpf Urine Mucus Not seen (FEW) /hpf Blood Type Gel Antibody Screen Crossmatch Result Diagrams: 06/13/19 20:00 06/13/19 20:00 EKG INTERPRETATION EKG Date: 06/13/19 Rhythm: NSR Rate (Beats/Min): 66 [place]: LAD-Left [place] Deviation P-Wave: Present QRS: Normal Problem List Initiated/Reviewed/Updated: Yes Orders Last 24hrs: Active Orders 24 hr Category Date Time Status Admission Status [Patient Status] [ADT] Routine ADT 06/13/19 21:58 Active Antiembolic Devices [RC] PER UNIT ROUTINE Care 06/13/19 23:21 Active Blood Glucose Check, Bedside [RC] QIDACANDBED Care 06/13/19 23:18 Active EKG Documentation Completion [RC] STAT Care 06/13/19 19:32 Active Orthostatic Vital Signs [RC] ASDIRECTED Care 06/13/19 19:34 Active Oxygen Therapy [RC] PRN Care 06/13/19 23:19 Active Up With Assistance [RC] ASDIRECTED Care 06/13/19 23:19 Active VTE/DVT Education [RC] PER UNIT ROUTINE Care 06/13/19 23:19 Active Vital Signs [RC] Q4H Care 06/13/19 23:19 Active Nothing per Oral After Midnight Diet [DIET] Diet 06/13/19 Dinner Active Chest 1V Frontal [CR] Stat Exams 06/13/19 19:32 Taken CBC WITH AUTO DIFF [HEME] AM Lab 06/14/19 05:11 Ordered CBC WITH AUTO DIFF [HEME] AM Lab 06/15/19 05:11 Ordered CBC WITH AUTO DIFF [HEME] AM Lab 06/16/19 05:11 Ordered CBC WITH AUTO DIFF [HEME] AM Lab 06/17/19 05:11 Ordered CBC WITH AUTO DIFF [HEME] AM Lab 06/18/19 05:11 Ordered COMPREHENSIVE METABOLIC PN,CMP [CHEM] AM Lab 06/14/19 05:11 Ordered COMPREHENSIVE METABOLIC PN,CMP [CHEM] AM Lab 06/15/19 05:11 Ordered COMPREHENSIVE METABOLIC PN,CMP [CHEM] AM Lab 06/16/19 05:11 Ordered COMPREHENSIVE METABOLIC PN,CMP [CHEM] AM Lab 06/17/19 05:11 Ordered COMPREHENSIVE METABOLIC PN,CMP [CHEM] AM Lab 06/18/19 05:11 Ordered CULTURE MRSA [RM] Routine Lab 06/13/19 22:45 Received MAGNESIUM [CHEM] AM Lab 06/14/19 05:11 Ordered MAGNESIUM [CHEM] AM Lab 06/15/19 05:11 Ordered MAGNESIUM [CHEM] AM Lab 06/16/19 05:11 Ordered MAGNESIUM [CHEM] AM Lab 06/17/19 05:11 Ordered MAGNESIUM [CHEM] AM Lab 06/18/19 05:11 Ordered METH-RESIST S.AUR,MRSA BY PCR [MOLEC] Routine Lab 06/13/19 22:45 Received PACKED CELLS [RED BLOOD CELLS LP] [BBK] Stat Lab 06/13/19 20:00 Results TYPE AND SCREEN [BBK] Stat Lab 06/13/19 20:00 Results Carboxymethylcellulose Sodium Med 06/14/19 09:00 Ordered 1 drop EYEBOTH BID Furosemide [Lasix] Med 06/14/19 09:00 Active 40 mg PO TID Insulin Lispro [HumaLOG] Med 06/14/19 07:00 Ordered See Protocol SUBCUT QIDACANDBED Levothyroxine [Synthroid] Med 06/14/19 09:00 Ordered 100 mcg PO DAILY Losartan [Cozaar] Med 06/14/19 09:00 Ordered 100 mg PO DAILY Loxapine Succinate [Loxapine] Med 06/14/19 18:00 Ordered 25 mg PO QPM Loxapine Succinate [Loxapine] Med 06/14/19 21:00 Ordered 50 mg PO BEDTIME Melatonin [Melatonin] Med 06/14/19 21:00 Ordered 5 mg PO BEDTIME Metoprolol Succinate [Toprol XL] Med 06/14/19 09:00 Ordered 25 mg PO DAILY Nystatin Med 06/13/19 23:14 Ordered 1 applic TOP BID PRN Pantoprazole [ProTONIX IV] Med 06/14/19 09:00 Ordered 40 mg IVPUSH Q12H Sodium Chloride 0.9% [Normal Saline] 1,000 ml Med 06/13/19 19:45 Stop Req IV ASDIRECTED Spironolactone [Aldactone] Med 06/14/19 09:00 Ordered 25 mg PO DAILY Temazepam [Restoril] Med 06/14/19 21:00 Ordered 30 mg PO BEDTIME atorvaSTATin Med 06/15/19 09:00 Ordered 10 mg PO DAILY cloNIDine [Catapres] Med 06/14/19 09:00 Ordered 0.3 mg PO BID traZODone Med 06/14/19 21:00 Ordered 100 mg PO BEDTIME Sequential Compression Device [OM.PC] Per Unit Routine Oth 06/13/19 23:20 Ordered Transfuse PRBC [Transfuse Red Blood Cells] [COMM] Oth 06/13/19 21:48 Ordered Urgent Resuscitation Status Routine Resus Stat 06/13/19 23:19 Ordered Medication Orders Furosemide (Lasix) 40 mg PO TID CELI Sodium Chloride (Normal Saline) 1,000 mls @ 100 mls/hr IV ASDIRECTED CELI Last Admin: 06/13/19 20:17 Dose: 100 mls/hr Insulin Human Lispro (Humalog) 0 unit SUBCUT QIDACANDBED CELI; Protocol Levothyroxine Sodium (Synthroid) 100 mcg PO DAILY CELI Losartan Potassium (Cozaar) 100 mg PO DAILY CELI Metoprolol Succinate (Toprol Xl) 25 mg PO DAILY CELI Non-Formulary Medication (Atorvastatin) 10 mg PO DAILY CELI Non-Formulary Medication (Carboxymethylcellulose Sodium) 1 drop EYEBOTH BID CELI Non-Formulary Medication (Clonidine [Catapres]) 0.3 mg PO BID CELI Non-Formulary Medication (Loxapine Succinate [Loxapine]) 25 mg PO QPM CELI Non-Formulary Medication (Loxapine Succinate [Loxapine]) 50 mg PO BEDTIME CELI Non-Formulary Medication (Melatonin [Melatonin]) 5 mg PO BEDTIME CELI Non-Formulary Medication (Nystatin) 1 applic TOP BID PRN PRN Reason: Itching Pantoprazole Sodium (Protonix Iv) 40 mg IVPUSH Q12H CELI Spironolactone (Aldactone) 25 mg PO DAILY CELI Temazepam (Restoril) 30 mg PO BEDTIME CELI Trazodone HCl (Trazodone) 100 mg PO BEDTIME CELI Assessment/Plan Comment:: Assessment * 64-year-old female on aspirin with GI bleed * 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 Plan * Admit to observation * 1 unit of packed red blood cells * 20 mg IV Lasix after blood transfusion * Hold aspirin and Gleevec * Restart meds in the morning after upper endoscopy * Upper endoscopy per Dr. Kirby * Normal saline 100 mL an hour * CBC, CMP, mag in the morning * CODE STATUS full code * VT prophylaxis with SCDs - Mortality Measure Prognosis:: Poor
[2019-06-14] MEDS: Insulin Lispro 100 Units/ML 3 ML Vial SUBCUT SCH ×4 (06:40→22:03)
[2019-06-14] MEDS: Pantoprazole 40 MG Vial IVPUSH SCH ×2 (09:52→20:18)
[2019-06-14] MEDS: Furosemide 40 MG Tab PO SCH ×3 (10:41→20:11)
--- NOTE | 2019-06-14 11:40 | CONS ---
CONSULTING PHYSICIAN: Hector Kirby MD DATE OF CONSULTATION: 06/14/2019 REQUESTING PHYSICIAN: Dr. Arteaga. REASON FOR CONSULTATION: GI bleed. HISTORY OF PRESENT ILLNESS: The patient is a 64-year-old female, resident of [facility]. She reports 2 episodes of dark bowel movements, which tested positive for blood. She says she has had this intermittently for several years. She was last scoped about 4 months ago and a lesion in the stomach was identified. She also had a colonoscopy. Both these records are absent from the medical record. My understanding is that she had a lesion in her stomach, which was cauterized. I spoke with her sister as well who reports that a lesion in her colon was also identified and cauterized. She is currently on Gleevec to treat CML. She had 1 unit transfusion and had an adequate response overnight. She is doing well this morning. She denies abdominal pain. Her main complaint this morning is actually hunger. She has had no further bloody bowel movements this morning. PRIOR MEDICAL HISTORY: Congestive heart failure, hypercholesterolemia, hypertension, venous insufficiency, gastroesophageal reflux disease, GI bleed, obesity, ascites, hematuria. She had a femur fracture. Traumatic brain injury, bipolar, depression, type 2 diabetes, anemia, and CML. PAST SURGICAL HISTORY: Cholecystectomy, appendectomy, tubal ligation, ORIF of the left femur, cataract surgery, and oral surgery for tooth abscess. SOCIAL HISTORY: She is a mildly demented female who lives in an assisted setting. Her sister is the power of water aerobics instructor. Denies history of smoking, alcohol abuse, and illicit drugs. REVIEW OF SYSTEMS: A 10-system review demonstrates fatigue, depression, weight loss, hematochezia, occasional abdominal pain, back pain, joint pains, easy bruising, and dizziness. The remainder of her 10-system review is negative, except for that listed above. PHYSICAL EXAMINATION: GENERAL: She is alert. She appears cheerful, in no obvious distress. She looks quite comfortable. VITAL SIGNS: Temperature 98.4, pulse 84, respirations 12, blood pressure 149/84. HEAD AND NECK: Normocephalic and atraumatic. Neck is supple, full range of motion. LUNGS: Clear to auscultation bilaterally. HEART: Regular rate and rhythm. No murmurs, clicks, gallops, or rubs. ABDOMEN: Soft, nontender, and nondistended. No hepatosplenomegaly is appreciated. EXTREMITIES: She has some mild edema of the bilateral lower extremities. NEUROLOGIC: She is alert. She appears oriented. She is cognizant of the date and time. She gives a good medical history. Cranial nerves are grossly intact. INTEGUMENT: No rashes. No lesions. No jaundice. No petechiae. LABORATORY DATA: I reviewed her labs. Her hemoglobin had an appropriate response with 1 unit from 8.2 g to 9.9 g. Creatinine is a bit low at 1.4, that has improved from 1.6 last night. The remainder of her labs are unremarkable. ASSESSMENT: Gastrointestinal bleed. PLAN: She has not had a bowel prep. It seems that her likely source of bleeding given her dark stool would be an upper GI source. She has had cauterization of gastric mucosa in the past. This is confirmed by her daughter, her sister, and the patient herself, although I do not have those medical records. Gleevec is typically associated with upper GI bleeding. If I cannot appreciate a source in the stomach, we might consider prepping her for colonoscopy. This may be done as an outpatient depending on the patient's stability. We will cross that bridge when we get to it. I am planning on an upper endoscopy in the next hour or so. MADISON /[id number]
--- NOTE | 2019-06-14 11:52 | PCM.PREANE ---
Preanesthetic Assessment - Anesthesia/Transfusion/Family Hx Anesthesia History: Prior Anesthesia Without Reaction Family History of Anesthesia Reaction: No Transfusion History: Unknown - Review of Systems General: Fatigue Pulmonary: No Symptoms Cardiovascular: No Symptoms Gastrointestinal: No Symptoms Neurological: No Symptoms Other: Reports: Easy Bleeding, Easy Bruising, Diabetes (gluco check 94 ) - Physical Assessment NPO Status Date: 06/13/19 NPO Status Time: 23:00 Vital Signs: Last Vital Signs Temp 37.1 C 06/14/19 11:20 Pulse 73 06/14/19 11:20 Resp 12 06/14/19 11:20 BP 156/85 H 06/14/19 11:20 Pulse Ox 100 06/14/19 11:20 Orthostatic Blood Pressure [ 125/44 Standing] Orthostatic Blood Pressure [ 143/51 Supine] Height: 1.52 m Weight: 67.495 kg ASA Class: 4 Mental Status: Alert & Oriented x3 Airway Class: Mallampati = 2 Dentition: Reports: Partial (top) Thyro-Mental Finger Breadths: 2 Mouth Opening Finger Breadths: 2 ROM/Head Extension: Limited/Partial Lungs: Clear to Auscultation, Normal Respiratory Effort Cardiovascular: Regular Rate, Regular Rhythm - Lab Values: Laboratory Last Values WBC 4.22 K/mm3 (3.98-10.04) 06/14/19 04:49 RBC 3.16 M/mm3 (3.98-5.22) L 06/14/19 04:49 Hgb 9.9 gm/L (11.2-15.7) L D 06/14/19 04:49 Hct 31.4 % (34.1-44.9) L 06/14/19 04:49 MCV 99.4 fl (79.4-94.8) H 06/14/19 04:49 MCH 31.3 pg (25.6-32.2) 06/14/19 04:49 MCHC 31.5 g/dl (32.2-35.5) L 06/14/19 04:49 RDW Std Deviation 78.2 fL (36.4-46.3) H 06/14/19 04:49 Plt Count 188 K/mm3 (182-369) 06/14/19 04:49 MPV 8.7 fl (9.4-12.3) L 06/14/19 04:49 Neut % (Auto) 59.8 % (34.0-71.1) 06/14/19 04:49 Lymph % (Auto) 28.4 % (19.3-51.7) 06/14/19 04:49 [place] % (Auto) 8.5 % (4.7-12.5) 06/14/19 04:49 Eos % (Auto) 2.4 (0.7-5.8) 06/14/19 04:49 Baso % (Auto) 0.7 % (0.1-1.2) 06/14/19 04:49 Neut # (Auto) 2.52 K/mm3 (1.56-6.13) 06/14/19 04:49 Lymph # (Auto) 1.20 K/mm3 (1.18-3.74) 06/14/19 04:49 [place] # (Auto) 0.36 K/mm3 (0.24-0.36) 06/14/19 04:49 Eos # (Auto) 0.10 K/mm3 (0.04-0.36) 06/14/19 04:49 Baso # (Auto) 0.03 K/mm3 (0.01-0.08) 06/14/19 04:49 Neutrophils % (Manual) 56 % (40-60) 06/13/19 20:00 Band Neutrophils % 0 % (0-10) 06/13/19 20:00 Lymphocytes % (Manual) 39 % (20-40) 06/13/19 20:00 Atypical Lymphs % 0 % 06/13/19 20:00 Monocytes % (Manual) 3 % (2-10) 06/13/19 20:00 Eosinophils % (Manual) 2 % (0.7-5.8) 06/13/19 20:00 Basophils % (Manual) 0 (0.1-1.2) L 06/13/19 20:00 Platelet Estimate Adequate 06/13/19 20:00 Plt Morphology Comment Normal 06/13/19 20:00 Hypochromasia 2+ moderate 06/13/19 20:00 Anisocytosis 2+ moder 06/13/19 20:00 RBC Morph Comment Not Reportable 06/13/19 20:00 ESR 40 mm/hr (0-20) H 06/13/19 20:00 PT 11.4 SECONDS (9.7-12.0) 06/13/19 20:00 INR 1.05 06/13/19 20:00 APTT 25 SECONDS (22-31) 06/13/19 20:00 Sodium 143 mEq/L (136-145) 06/14/19 04:49 Potassium 3.6 mEq/L (3.5-5.1) 06/14/19 04:49 Chloride 108 mEq/L (98-107) H 06/14/19 04:49 Carbon Dioxide 27 mEq/L (21-32) 06/14/19 04:49 Anion Gap 11.6 (5-15) 06/14/19 04:49 BUN 55 mg/dL (7-18) H 06/14/19 04:49 Creatinine 1.4 mg/dL (0.55-1.02) H 06/14/19 04:49 Est Cr Clr Drug Dosing 29.16 mL/min 06/14/19 04:49 Estimated GFR (MDRD) 38 mL/min (>60) 06/14/19 04:49 BUN/Creatinine Ratio 39.3 (14-18) H 06/14/19 04:49 Glucose 87 mg/dL (80-115) 06/14/19 04:49 POC Glucose 92 mg/dL (80-115) 06/14/19 11:16 Calcium 8.6 mg/dL (8.5-10.1) 06/14/19 04:49 Magnesium 2.2 mg/dl (1.8-2.4) 06/14/19 04:49 Total Bilirubin 0.4 mg/dL (0.2-1.0) 06/14/19 04:49 AST 35 U/L (15-37) 06/14/19 04:49 ALT 25 U/L (14-59) 06/14/19 04:49 Alkaline Phosphatase 69 U/L (46-116) 06/14/19 04:49 C-Reactive Protein < 0.2 mg/dL (<1.0) 06/13/19 20:00 NT-Pro-B Natriuret Pep 224 pg/mL (0-125) H 06/13/19 20:00 Total Protein 6.4 g/dl (6.4-8.2) 06/14/19 04:49 Albumin 2.9 g/dl (3.4-5.0) L 06/14/19 04:49 Globulin 3.5 gm/dL 06/14/19 04:49 Albumin/Globulin Ratio 0.8 (1-2) L 06/14/19 04:49 Urine Color Yellow (Yellow) 06/13/19 20:15 Urine Appearance Clear (Clear) 06/13/19 20:15 Urine pH 6.5 (5.0-8.0) 06/13/19 20:15 Ur Specific [place] 1.015 (1.005-1.030) 06/13/19 20:15 Urine Protein Negative (Negative) 06/13/19 20:15 Urine Glucose (UA) Negative (Negative) 06/13/19 20:15 Urine Ketones Negative (Negative) 06/13/19 20:15 Urine Occult Blood Negative (Negative) 06/13/19 20:15 Urine Nitrite Negative (Negative) 06/13/19 20:15 Urine Bilirubin Negative (Negative) 06/13/19 20:15 Urine Urobilinogen 0.2 (0.2-1.0) 06/13/19 20:15 Ur Leukocyte Esterase Negative (Negative) 06/13/19 20:15 Urine RBC Not seen /hpf (0-5) 06/13/19 20:15 Urine WBC Not seen /hpf (0-5) 06/13/19 20:15 Ur Squamous Epith Cells 0-5 /hpf (0-5) 06/13/19 20:15 Urine Bacteria Not seen /hpf (FEW) 06/13/19 20:15 Urine Mucus Not seen /hpf (FEW) 06/13/19 20:15 MRSA (PCR) Negative 06/13/19 22:45 Blood Type A POSITIVE 06/13/19 20:00 Gel Antibody Screen Negative 06/13/19 20:00 Crossmatch See Detail 06/13/19 20:00 - Allergies Allergies/Adverse Reactions: Allergies Allergy/AdvReac Type Severity Reaction Status Date / Time Influenza Virus Vaccines AdvReac Anxiety Verified 06/13/19 23:45 - Anesthesia Plan Pre-Op Medication Ordered: Beta Bryon Beta Bryon: Metoprolol Med Last Dose Date: 06/14/19 Med Last Dose Time: 12:00 - Acknowledgements Anesthesia Type Planned: MAC Pt an Appropriate Candidate for the Planned Anesthesia: Yes Alternatives and Risks of Anesthesia Discussed w Pt/Guardian: Yes Pt/Guardian Understands and Agrees with Anesthesia Plan: Yes PreAnesthesia Questionnaire Other HEENT History: tooth abscess Cardiovascular History: Reports: Heart Failure, High Cholesterol, Hypertension Other Cardiovascular History: venous insufficiency, atypical chest pain; angina pectoris inspecified. Respiratory History: Reports: None Gastrointestinal History: Reports: GERD, GI Bleed Other Gastrointestinal History: obesity, ascites Other Genitourinary History: Hematuria PATIENT ACCOUNTS MANAGER History: Reports: None Musculoskeletal History: Reports: Fracture Other Musculoskeletal History: fx two bones in foot 2.5yrs ago. Neurological History: Reports: None, Brain Injury, Other (See Below) Other Neuro History: personal history of traumatic brain injury Psychiatric History: Reports: Bipolar, Depression Other Psychiatric History: Check up with psychiatrist q3-4 months Endocrine/Metabolic History: Reports: Diabetes, Type II, Hypothyroidism, Obesity /BMI 30+ Hematologic History: Reports: Anemia, Blood Transfusion(s) Immunologic History: Reports: None Oncologic (Cancer) History: Reports: Leukemia Dermatologic History: Reports: Cellulitis - Infectious Disease History Infectious Disease History: Reports: MRSA - Past Surgical History Head Surgeries/Procedures: Reports: None HEENT Surgical History: Reports: Cataract Surgery, Oral Surgery GI Surgical History: Reports: Appendectomy, Cholecystectomy Female Surgical History: Reports: Tubal Ligation Neurological Surgical History: Reports: None Other Musculoskeletal Surgeries/Procedures:: Left leg surgery. Oncologic Surgical History: Reports: None - SUBSTANCE USE Smoking Status *Q: Never Smoker Second Hand Smoke Exposure: No Recreational Drug Use History: No - HOME MEDS Home Medications: Home Meds Acetaminophen 650 mg PO Q8H PRN 08/31/15 [History] Aspirin 81 mg PO DAILY 08/31/15 [History] Furosemide [Lasix] 40 mg PO TID 08/31/15 [History] Insulin Aspart [Novolog Flexpen] 6 units SUBCUT BIDMEALS 08/31/15 [History] Losartan Potassium [Cozaar] 100 mg PO DAILY 08/31/15 [History] Loxapine Succinate [Loxapine] 25 mg PO QPM 08/31/15 [History] Loxapine Succinate [Loxapine] 50 mg PO BEDTIME 08/31/15 [History] cloNIDine [Catapres] 0.3 mg PO BID 08/31/15 [History] traZODone 100 mg PO BEDTIME 08/31/15 [History] Dextromethorphan/guaiFENesin [Robitussin DM] 10 ml PO Q4H PRN 10/02/16 [History] Imatinib Mesylate [Gleevec] 600 mg PO DAILY 10/02/16 [History] Memantine HCl [Namenda] 5 mg PO DAILY 08/30/17 [History] Nystatin [Nystatin Crm] 1 applic TOP BID PRN 08/30/17 [History] Temazepam 30 mg PO BEDTIME 08/30/17 [History] atorvaSTATin [Lipitor] 10 mg PO DAILY 08/30/17 [History] Carboxymethylcellulose Sodium [Refresh Tears 0.5%] 1 drop EYEBOTH BID 01/19/18 [ History] Ondansetron [Zofran ODT] 4 mg SL Q4HR PRN 01/19/18 [History] Spironolactone [Aldactone] 25 mg PO DAILY 01/19/18 [History] Levothyroxine Sodium [Synthroid] 100 mcg PO DAILY 01/21/18 [History] Metoprolol Succinate [Toprol XL] 25 mg PO DAILY 01/21/18 [History] Insulin Degludec [Tresiba] 13 units SQ BEDTIME 01/24/19 [History] Melatonin 5 mg PO BEDTIME 01/24/19 [History] Pantoprazole [ProTONIX] 40 mg PO BID 01/24/19 [History] Polyethylene Glycol 3350 [Miralax] 17 gm PO ASDIRECTED PRN 02/22/19 [History] Insulin Aspart [NovoLOG] 2 unit SQ ACDINNER 06/13/19 [History] Iron Polysaccharide Complex [Ferric X-150] 150 mg PO DAILY 06/13/19 [History] Silver Sulfadiazine [Silvadene 1% Cream 20 GM] 1 applic TOP DAILY 06/13/19 [ History] - CURRENT (IN HOUSE) MEDS Current Meds: Current Medications Furosemide (Lasix) 40 mg PO TID [facility] Last Admin: 06/14/19 10:41 Dose: Not Given Insulin Human Lispro (Humalog) 0 unit SUBCUT QIDACANDBED [facility]; Protocol Last Admin: 06/14/19 06:40 Dose: Not Given Levothyroxine Sodium (Synthroid) 100 mcg PO DAILY [facility] Losartan Potassium (Cozaar) 100 mg PO DAILY [facility] Metoprolol Succinate (Toprol Xl) 25 mg PO DAILY [facility] Non-Formulary Medication (Atorvastatin) 10 mg PO DAILY [facility] Non-Formulary Medication (Carboxymethylcellulose Sodium) 1 drop EYEBOTH BID [facility] Non-Formulary Medication (Clonidine [Catapres]) 0.3 mg PO BID [facility] Non-Formulary Medication (Loxapine Succinate [Loxapine]) 25 mg PO QPM [facility] Non-Formulary Medication (Loxapine Succinate [Loxapine]) 50 mg PO BEDTIME [facility] Non-Formulary Medication (Melatonin [Melatonin]) 5 mg PO BEDTIME [facility] Non-Formulary Medication (Nystatin) 1 applic TOP BID PRN PRN Reason: Itching Pantoprazole Sodium (Protonix Iv) 40 mg IVPUSH Q12H [facility] Last Admin: 06/14/19 09:52 Dose: 40 mg Spironolactone (Aldactone) 25 mg PO DAILY [facility] Temazepam (Restoril) 30 mg PO BEDTIME [facility] Trazodone HCl (Trazodone) 100 mg PO BEDTIME [facility] Discontinued Medications Furosemide (Lasix) 20 mg IVPUSH ONETIME ONE Stop: 06/13/19 22:03 Last Admin: 06/14/19 00:36 Dose: 20 mg Sodium Chloride (Normal Saline) 1,000 mls @ 100 mls/hr IV ASDIRECTED [facility] Last Admin: 06/13/19 20:17 Dose: 100 mls/hr Pantoprazole Sodium (Protonix Iv) 80 mg IVPUSH BOLUS ONE Stop: 06/13/19 21:08 Last Admin: 06/13/19 21:26 Dose: 80 mg Temazepam (Restoril) 30 mg PO ONETIME ONE Stop: 06/13/19 22:02 Last Admin: 06/14/19 00:36 Dose: Not Given
[2019-06-14] MEDS ORDERED: Propofol 200 MG/20 ML SDV ONE (11:58)
[2019-06-14] MEDS ORDERED: Metoprolol Tartrate 5 MG/5 ML SDV ONE (12:07)
[2019-06-14] MEDS: Carboxymethylcellulose Sodium 1% Ophth Gel 15 ML Bottle EYEBOTH SCH ×2 (14:10→20:17)
[2019-06-14] MEDS: Losartan 100 MG Tab PO SCH (14:11)
[2019-06-14] MEDS: Metoprolol Succinate 25 MG Tab.ER PO SCH (14:12)
[2019-06-14] MEDS: cloNIDine 0.1 MG Tab PO SCH ×2 (14:13→20:12)
[2019-06-14] MEDS: Spironolactone 25 MG Tab PO SCH (14:13)
--- NOTE | 2019-06-14 16:41 | OR ---
DATE OF OPERATION: 06/14/2019 SURGEON: Hector Kirby MD PREOPERATIVE DIAGNOSIS: Gastrointestinal bleeding. POSTOPERATIVE DIAGNOSIS: 1. Gastrointestinal bleeding. 2. Sliding hiatal hernia. OPERATION PERFORMED: Diagnostic esophagogastroduodenoscopy. ANESTHESIA: MAC. FINDINGS: There was no apparent bleeding source in the upper GI tract. I found no ulcerations in the duodenum, stomach, and esophagus. No ulcerations were identified. Sliding hiatal hernia. DISPOSITION: Stable at the end of the procedure. PATHOLOGY: None. ESTIMATED BLOOD LOSS: None. 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 The patient presented with an episode of GI bleeding. She had just been scoped about 4 months ago, both upper and lower. Her sister and the patient told me that she had gastric ulcer, which was ablated with a heater probe. Her sister told me that the same procedure was done in her colon. The patient told me she had dark blood in her stool, which indicated an upper GI source. The chart indicates that she told the ER provider she had bright red blood per rectum, so I am not sure which is which. Nonetheless, she tested positive for blood in her stool, and the patient had a transfusion last night and had a supra- normal response. She was referred for an EGD. She was fully informed of the major risks, benefits, and alternatives. The risks include, but are not limited to perforation of the GI tract, bleeding, the risks of anesthesia, possibility of further surgery, aspiration, pneumonia, and laryngeal spasm among others. Her sister gave informed consent, and the patient agreed what was done. DESCRIPTION OF PROCEDURE: The patient was brought to the gastro suite and placed in the left lateral decubitus position. A bite block was placed. She was given MAC. I introduced the endoscope into the proximal esophagus past the cricopharyngeus muscle. I passed the scope with gentle forward pressure keeping the lumen in view at all times. I entered the stomach and surveyed the stomach. I found no lesions no bleeding, no ulcerations, no mucosal lesions of any kind. I surveyed the duodenum passing through the pylorus to the 4th portion of the duodenum. I visualized the turn to the jejunum. I slowly investigated the mucosa of the duodenum and unfortunately found no evidence of blood, no ulcerations. This was a normal exam as well. I withdrew the scope into the stomach and then retroflexed and viewed the mucosa of the fundus. There were no ulcerations here either. I then straightened the scope and then brought the scope into the esophagus. She had a small sliding hiatal hernia, which is of no consequence in this setting. I slowly investigated the mucosa of the esophagus in its entirety after evacuating the air from the stomach. The scope was eventually withdrawn finding no source of blood. At the end of the procedure, the scope was withdrawn. She was awakened from anesthesia and moved to recovery in stable condition. PLAN: I will discuss with Dr. Arteaga the possibility of doing a colonoscopy either tomorrow as an outpatient depending on if she continues to bleed. [place] /[id number]
--- NOTE | 2019-06-14 17:47 | PCM.PN ---
- General Info Date of Service: 06/14/19 Admission Dx/Problem (Free Text): Admission Diagnosis/Problem Admission Diagnosis/Problem Anemia Subjective Update: Patient had an upper endoscopy this morning. Hiatal hernia was found and no source of bleeding. Patient has elected to have a colonoscopy tomorrow. Functional Status: Reports: Pain Controlled - Review of Systems General: Reports: No Symptoms HEENT: Reports: No Symptoms Pulmonary: Reports: No Symptoms Cardiovascular: Reports: No Symptoms Gastrointestinal: Reports: No Symptoms - Patient Data Vitals - Most Recent: Last Vital Signs Temp 98.8 F 06/14/19 16:22 Pulse 64 06/14/19 16:23 Resp 14 06/14/19 16:22 BP 133/97 H 06/14/19 16:23 Pulse Ox 99 06/14/19 16:23 Orthostatic Blood Pressure [ 125/44 Standing] Orthostatic Blood Pressure [ 143/51 Supine] Weight - Most Recent: 148 lb 12.8 oz I&O - Last 24 Hours: Intake & Output 06/14/19 06/14/19 06/14/19 06:59 14:59 22:59 Intake Total 245 1020 Output Total 1250 300 Balance -1005 720 Lab Results Last 24 Hours: Laboratory Results - last 24 hr 06/13/19 06/13/19 06/13/19 Range/Units 20:00 20:00 20:00 WBC 5.52 (3.98-10.04) K/mm3 RBC 2.55 L (3.98-5.22) M/mm3 Hgb 8.2 L (11.2-15.7) gm/L Hct 26.1 L (34.1-44.9) % MCV 102.4 H (79.4-94.8) fl MCH 32.2 (25.6-32.2) pg MCHC 31.4 L (32.2-35.5) g/dl RDW Std Deviation 75.9 H (36.4-46.3) fL Plt Count 214 (182-369) K/mm3 MPV 9.1 L (9.4-12.3) fl Neut % (Auto) (34.0-71.1) % Lymph % (Auto) (19.3-51.7) % [place] % (Auto) (4.7-12.5) % Eos % (Auto) (0.7-5.8) Baso % (Auto) (0.1-1.2) % Neut # (Auto) (1.56-6.13) K/mm3 Lymph # (Auto) (1.18-3.74) K/mm3 [place] # (Auto) (0.24-0.36) K/mm3 Eos # (Auto) (0.04-0.36) K/mm3 Baso # (Auto) (0.01-0.08) K/mm3 Neutrophils % (Manual) 56 (40-60) % Band Neutrophils % 0 (0-10) % Lymphocytes % (Manual) 39 (20-40) % Atypical Lymphs % 0 % Monocytes % (Manual) 3 (2-10) % Eosinophils % (Manual) 2 (0.7-5.8) % Basophils % (Manual) 0 L (0.1-1.2) Platelet Estimate Adequate Plt Morphology Comment Normal Hypochromasia 2+ moderate Anisocytosis 2+ moder RBC Morph Comment Not Reportable ESR (0-20) mm/hr PT 11.4 (9.7-12.0) SECONDS INR 1.05 APTT 25 (22-31) SECONDS Sodium 138 (136-145) mEq/L Potassium 4.1 (3.5-5.1) mEq/L Chloride 105 (98-107) mEq/L Carbon Dioxide 24 (21-32) mEq/L Anion Gap 13.1 (5-15) BUN 59 H (7-18) mg/dL Creatinine 1.6 H (0.55-1.02) mg/dL Est Cr Clr Drug Dosing 25.51 mL/min Estimated GFR (MDRD) 32 (>60) mL/min BUN/Creatinine Ratio 36.9 H (14-18) Glucose 151 H (80-115) mg/dL POC Glucose (80-115) mg/dL Calcium 9.0 (8.5-10.1) mg/dL Magnesium 2.1 (1.8-2.4) mg/dl Total Bilirubin 0.3 (0.2-1.0) mg/dL AST 37 (15-37) U/L ALT 29 (14-59) U/L Alkaline Phosphatase 73 (46-116) U/L C-Reactive Protein < 0.2 (<1.0) mg/dL NT-Pro-B Natriuret Pep (0-125) pg/mL Total Protein 6.9 (6.4-8.2) g/dl Albumin 3.2 L (3.4-5.0) g/dl Globulin 3.7 gm/dL Albumin/Globulin Ratio 0.9 L (1-2) Urine Color (Yellow) Urine Appearance (Clear) Urine pH (5.0-8.0) Ur Specific [place] (1.005-1.030) Urine Protein (Negative) Urine Glucose (UA) (Negative) Urine Ketones (Negative) Urine Occult Blood (Negative) Urine Nitrite (Negative) Urine Bilirubin (Negative) Urine Urobilinogen (0.2-1.0) Ur Leukocyte Esterase (Negative) Urine RBC (0-5) /hpf Urine WBC (0-5) /hpf Ur Squamous Epith Cells (0-5) /hpf Urine Bacteria (FEW) /hpf Urine Mucus (FEW) /hpf MRSA (PCR) Blood Type Gel Antibody Screen Crossmatch 06/13/19 06/13/19 06/13/19 Range/Units 20:00 20:00 20:00 WBC (3.98-10.04) K/mm3 RBC (3.98-5.22) M/mm3 Hgb (11.2-15.7) gm/L Hct (34.1-44.9) % MCV (79.4-94.8) fl MCH (25.6-32.2) pg MCHC (32.2-35.5) g/dl RDW Std Deviation (36.4-46.3) fL Plt Count (182-369) K/mm3 MPV (9.4-12.3) fl Neut % (Auto) (34.0-71.1) % Lymph % (Auto) (19.3-51.7) % [place] % (Auto) (4.7-12.5) % Eos % (Auto) (0.7-5.8) Baso % (Auto) (0.1-1.2) % Neut # (Auto) (1.56-6.13) K/mm3 Lymph # (Auto) (1.18-3.74) K/mm3 [place] # (Auto) (0.24-0.36) K/mm3 Eos # (Auto) (0.04-0.36) K/mm3 Baso # (Auto) (0.01-0.08) K/mm3 Neutrophils % (Manual) (40-60) % Band Neutrophils % (0-10) % Lymphocytes % (Manual) (20-40) % Atypical Lymphs % % Monocytes % (Manual) (2-10) % Eosinophils % (Manual) (0.7-5.8) % Basophils % (Manual) (0.1-1.2) Platelet Estimate Plt Morphology Comment Hypochromasia Anisocytosis RBC Morph Comment ESR 40 H (0-20) mm/hr PT (9.7-12.0) SECONDS INR APTT (22-31) SECONDS Sodium (136-145) mEq/L Potassium (3.5-5.1) mEq/L Chloride (98-107) mEq/L Carbon Dioxide (21-32) mEq/L Anion Gap (5-15) BUN (7-18) mg/dL Creatinine (0.55-1.02) mg/dL Est Cr Clr Drug Dosing mL/min Estimated GFR (MDRD) (>60) mL/min BUN/Creatinine Ratio (14-18) Glucose (80-115) mg/dL POC Glucose (80-115) mg/dL Calcium (8.5-10.1) mg/dL Magnesium (1.8-2.4) mg/dl Total Bilirubin (0.2-1.0) mg/dL AST (15-37) U/L ALT (14-59) U/L Alkaline Phosphatase (46-116) U/L C-Reactive Protein (<1.0) mg/dL NT-Pro-B Natriuret Pep 224 H (0-125) pg/mL Total Protein (6.4-8.2) g/dl Albumin (3.4-5.0) g/dl Globulin gm/dL Albumin/Globulin Ratio (1-2) Urine Color (Yellow) Urine Appearance (Clear) Urine pH (5.0-8.0) Ur Specific [place] (1.005-1.030) Urine Protein (Negative) Urine Glucose (UA) (Negative) Urine Ketones (Negative) Urine Occult Blood (Negative) Urine Nitrite (Negative) Urine Bilirubin (Negative) Urine Urobilinogen (0.2-1.0) Ur Leukocyte Esterase (Negative) Urine RBC (0-5) /hpf Urine WBC (0-5) /hpf Ur Squamous Epith Cells (0-5) /hpf Urine Bacteria (FEW) /hpf Urine Mucus (FEW) /hpf MRSA (PCR) Blood Type A POSITIVE Gel Antibody Screen Negative Crossmatch See Detail 06/13/19 06/13/19 06/14/19 Range/Units 20:15 22:45 04:49 WBC 4.22 (3.98-10.04) K/mm3 RBC 3.16 L (3.98-5.22) M/mm3 Hgb 9.9 L D (11.2-15.7) gm/L Hct 31.4 L (34.1-44.9) % MCV 99.4 H (79.4-94.8) fl MCH 31.3 (25.6-32.2) pg MCHC 31.5 L (32.2-35.5) g/dl RDW Std Deviation 78.2 H (36.4-46.3) fL Plt Count 188 (182-369) K/mm3 MPV 8.7 L (9.4-12.3) fl Neut % (Auto) 59.8 (34.0-71.1) % Lymph % (Auto) 28.4 (19.3-51.7) % [place] % (Auto) 8.5 (4.7-12.5) % Eos % (Auto) 2.4 (0.7-5.8) Baso % (Auto) 0.7 (0.1-1.2) % Neut # (Auto) 2.52 (1.56-6.13) K/mm3 Lymph # (Auto) 1.20 (1.18-3.74) K/mm3 [place] # (Auto) 0.36 (0.24-0.36) K/mm3 Eos # (Auto) 0.10 (0.04-0.36) K/mm3 Baso # (Auto) 0.03 (0.01-0.08) K/mm3 Neutrophils % (Manual) (40-60) % Band Neutrophils % (0-10) % Lymphocytes % (Manual) (20-40) % Atypical Lymphs % % Monocytes % (Manual) (2-10) % Eosinophils % (Manual) (0.7-5.8) % Basophils % (Manual) (0.1-1.2) Platelet Estimate Plt Morphology Comment Hypochromasia Anisocytosis RBC Morph Comment ESR (0-20) mm/hr PT (9.7-12.0) SECONDS INR APTT (22-31) SECONDS Sodium (136-145) mEq/L Potassium (3.5-5.1) mEq/L Chloride (98-107) mEq/L Carbon Dioxide (21-32) mEq/L Anion Gap (5-15) BUN (7-18) mg/dL Creatinine (0.55-1.02) mg/dL Est Cr Clr Drug Dosing mL/min Estimated GFR (MDRD) (>60) mL/min BUN/Creatinine Ratio (14-18) Glucose (80-115) mg/dL POC Glucose (80-115) mg/dL Calcium (8.5-10.1) mg/dL Magnesium (1.8-2.4) mg/dl Total Bilirubin (0.2-1.0) mg/dL AST (15-37) U/L ALT (14-59) U/L Alkaline Phosphatase (46-116) U/L C-Reactive Protein (<1.0) mg/dL NT-Pro-B Natriuret Pep (0-125) pg/mL Total Protein (6.4-8.2) g/dl Albumin (3.4-5.0) g/dl Globulin gm/dL Albumin/Globulin Ratio (1-2) Urine Color Yellow (Yellow) Urine Appearance Clear (Clear) Urine pH 6.5 (5.0-8.0) Ur Specific [place] 1.015 (1.005-1.030) Urine Protein Negative (Negative) Urine Glucose (UA) Negative (Negative) Urine Ketones Negative (Negative) Urine Occult Blood Negative (Negative) Urine Nitrite Negative (Negative) Urine Bilirubin Negative (Negative) Urine Urobilinogen 0.2 (0.2-1.0) Ur Leukocyte Esterase Negative (Negative) Urine RBC Not seen (0-5) /hpf Urine WBC Not seen (0-5) /hpf Ur Squamous Epith Cells 0-5 (0-5) /hpf Urine Bacteria Not seen (FEW) /hpf Urine Mucus Not seen (FEW) /hpf MRSA (PCR) Negative Blood Type Gel Antibody Screen Crossmatch 06/14/19 06/14/19 06/14/19 Range/Units 04:49 06:34 11:16 WBC (3.98-10.04) K/mm3 RBC (3.98-5.22) M/mm3 Hgb (11.2-15.7) gm/L Hct (34.1-44.9) % MCV (79.4-94.8) fl MCH (25.6-32.2) pg MCHC (32.2-35.5) g/dl RDW Std Deviation (36.4-46.3) fL Plt Count (182-369) K/mm3 MPV (9.4-12.3) fl Neut % (Auto) (34.0-71.1) % Lymph % (Auto) (19.3-51.7) % [place] % (Auto) (4.7-12.5) % Eos % (Auto) (0.7-5.8) Baso % (Auto) (0.1-1.2) % Neut # (Auto) (1.56-6.13) K/mm3 Lymph # (Auto) (1.18-3.74) K/mm3 [place] # (Auto) (0.24-0.36) K/mm3 Eos # (Auto) (0.04-0.36) K/mm3 Baso # (Auto) (0.01-0.08) K/mm3 Neutrophils % (Manual) (40-60) % Band Neutrophils % (0-10) % Lymphocytes % (Manual) (20-40) % Atypical Lymphs % % Monocytes % (Manual) (2-10) % Eosinophils % (Manual) (0.7-5.8) % Basophils % (Manual) (0.1-1.2) Platelet Estimate Plt Morphology Comment Hypochromasia Anisocytosis RBC Morph Comment ESR (0-20) mm/hr PT (9.7-12.0) SECONDS INR APTT (22-31) SECONDS Sodium 143 (136-145) mEq/L Potassium 3.6 (3.5-5.1) mEq/L Chloride 108 H (98-107) mEq/L Carbon Dioxide 27 (21-32) mEq/L Anion Gap 11.6 (5-15) BUN 55 H (7-18) mg/dL Creatinine 1.4 H (0.55-1.02) mg/dL Est Cr Clr Drug Dosing 29.16 mL/min Estimated GFR (MDRD) 38 (>60) mL/min BUN/Creatinine Ratio 39.3 H (14-18) Glucose 87 (80-115) mg/dL POC Glucose 90 92 (80-115) mg/dL Calcium 8.6 (8.5-10.1) mg/dL Magnesium 2.2 (1.8-2.4) mg/dl Total Bilirubin 0.4 (0.2-1.0) mg/dL AST 35 (15-37) U/L ALT 25 (14-59) U/L Alkaline Phosphatase 69 (46-116) U/L C-Reactive Protein (<1.0) mg/dL NT-Pro-B Natriuret Pep (0-125) pg/mL Total Protein 6.4 (6.4-8.2) g/dl Albumin 2.9 L (3.4-5.0) g/dl Globulin 3.5 gm/dL Albumin/Globulin Ratio 0.8 L (1-2) Urine Color (Yellow) Urine Appearance (Clear) Urine pH (5.0-8.0) Ur Specific [place] (1.005-1.030) Urine Protein (Negative) Urine Glucose (UA) (Negative) Urine Ketones (Negative) Urine Occult Blood (Negative) Urine Nitrite (Negative) Urine Bilirubin (Negative) Urine Urobilinogen (0.2-1.0) Ur Leukocyte Esterase (Negative) Urine RBC (0-5) /hpf Urine WBC (0-5) /hpf Ur Squamous Epith Cells (0-5) /hpf Urine Bacteria (FEW) /hpf Urine Mucus (FEW) /hpf MRSA (PCR) Blood Type Gel Antibody Screen Crossmatch Med Orders - Current: Current Medications Artificial Tears (Refresh Liquigel 1%) 0 ml EYEBOTH BID [facility] Last Admin: 06/14/19 14:10 Dose: 1 drop Clonidine HCl (Catapres) 0.3 mg PO BID [facility] Last Admin: 06/14/19 14:13 Dose: 0.3 mg Furosemide (Lasix) 40 mg PO TID [facility] Last Admin: 06/14/19 14:11 Dose: 40 mg Insulin Human Lispro (Humalog) 0 unit SUBCUT QIDACANDBED [facility]; Protocol Last Admin: 06/14/19 12:12 Dose: Not Given Levothyroxine Sodium (Synthroid) 100 mcg PO ACBREAKFAST [facility] Losartan Potassium (Cozaar) 100 mg PO DAILY [facility] Last Admin: 06/14/19 14:11 Dose: 100 mg Melatonin (Melatonin) 6 mg PO BEDTIME [facility] Metoprolol Succinate (Toprol Xl) 25 mg PO DAILY [facility] Last Admin: 06/14/19 14:12 Dose: 25 mg Nystatin (Nystatin Crm) 0 gm TOP BID PRN PRN Reason: Itching Pantoprazole Sodium (Protonix Iv) 40 mg IVPUSH Q12H [facility] Last Admin: 06/14/19 09:52 Dose: 40 mg Loxapine 25 Mg 0 each PO QPM [facility] Last Admin: 06/14/19 17:31 Dose: 1 each Loxapine 50 Mg 0 each PO BEDTIME [facility] Polyethylene Glycol/Electrolytes (Golytely) 4,000 ml PO ONETIME ONE Stop: 06/14/19 20:01 Simvastatin (Zocor) 10 mg PO DAILY [facility] Spironolactone (Aldactone) 25 mg PO DAILY [facility] Last Admin: 06/14/19 14:13 Dose: 25 mg Temazepam (Restoril) 30 mg PO BEDTIME [facility] Trazodone HCl (Trazodone) 100 mg PO BEDTIME [facility] Discontinued Medications Furosemide (Lasix) 20 mg IVPUSH ONETIME ONE Stop: 06/13/19 22:03 Last Admin: 06/14/19 00:36 Dose: 20 mg Sodium Chloride (Normal Saline) 1,000 mls @ 100 mls/hr IV ASDIRECTED [facility] Last Admin: 06/13/19 20:17 Dose: 100 mls/hr Metoprolol Tartrate (Lopressor) Confirm Administered Dose 5 mg .ROUTE .STK-MED ONE Stop: 06/14/19 12:08 Pantoprazole Sodium (Protonix Iv) 80 mg IVPUSH BOLUS ONE Stop: 06/13/19 21:08 Last Admin: 06/13/19 21:26 Dose: 80 mg Propofol (Diprivan 20 Ml) Confirm Administered Dose 200 mg .ROUTE .STK-MED ONE Stop: 06/14/19 11:59 Temazepam (Restoril) 30 mg PO ONETIME ONE Stop: 06/13/19 22:02 Last Admin: 06/14/19 00:36 Dose: Not Given - Exam Quality Assessment: No: Supplemental Oxygen General: Alert, Oriented HEENT: Pupils Equal, Mucous Membr. Moist/Coral Neck: Supple Lungs: Clear to Auscultation, Normal Respiratory Effort Cardiovascular: Regular Rate, Regular Rhythm GI/Abdominal Exam: Normal Bowel Sounds, Soft, Non-Tender, No Distention Extremities: Normal Inspection, Pedal Edema - Problem List Review Problem List Initiated/Reviewed/Updated: Yes - My Orders Last 24 Hours: My Active Orders 06/13/19 22:45 CULTURE MRSA [RM] Routine 06/13/19 23:18 Blood Glucose Check, Bedside [RC] QIDACANDBED 06/13/19 23:19 Oxygen Therapy [RC] PRN Up With Assistance [RC] VTE/DVT Education [RC] PER UNIT ROUTINE Vital Signs [RC] Q4HR Resuscitation Status Routine 06/13/19 23:20 Sequential Compression Device [OM.PC] Per Unit Routine 06/13/19 23:21 Antiembolic Devices [RC] 06/13/19 Dinner Nothing per Oral After Midnight Diet [DIET] 06/14/19 07:00 Insulin Lispro [HumaLOG] See Protocol SUBCUT QIDACANDBED 06/14/19 09:00 Furosemide [Lasix] 40 mg PO TID Pantoprazole [ProTONIX IV] 40 mg IVPUSH Q12H 06/14/19 10:49 Notify Provider Consults [RC] ASDIRECTED Consult to Physician [CONS] Routine 06/14/19 13:15 Spironolactone [Aldactone] 25 mg PO DAILY cloNIDine [Catapres] 0.3 mg PO BID 06/14/19 14:00 Carboxymethylcellulose Sodium [Refresh Liquigel 1%] 0 ml EYEBOTH BID Losartan [Cozaar] 100 mg PO DAILY Metoprolol Succinate [Toprol XL] 25 mg PO DAILY 06/14/19 17:36 Patient Status [ADT] Routine 06/14/19 18:00 Patient's Own Medication [Ptom] 0 each PO QPM 06/14/19 21:00 Melatonin 6 mg PO BEDTIME Patient's Own Medication [Ptom] 0 each PO BEDTIME Temazepam [Restoril] 30 mg PO BEDTIME traZODone 100 mg PO BEDTIME 06/15/19 05:11 CBC WITH AUTO DIFF [HEME] AM COMPREHENSIVE METABOLIC PN,CMP [CHEM] AM MAGNESIUM [CHEM] AM 06/15/19 06:00 Levothyroxine [Synthroid] 100 mcg PO ACBREAKFAST 06/15/19 09:00 Simvastatin [Zocor] 10 mg PO DAILY 06/16/19 05:11 CBC WITH AUTO DIFF [HEME] AM COMPREHENSIVE METABOLIC PN,CMP [CHEM] AM MAGNESIUM [CHEM] AM 06/17/19 05:11 CBC WITH AUTO DIFF [HEME] AM COMPREHENSIVE METABOLIC PN,CMP [CHEM] AM MAGNESIUM [CHEM] AM 06/18/19 05:11 CBC WITH AUTO DIFF [HEME] AM COMPREHENSIVE METABOLIC PN,CMP [CHEM] AM MAGNESIUM [CHEM] AM - Plan Plan:: Assessment * 64-year-old female on aspirin with GI bleed * 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 Plan * Admit to observation * 1 unit of packed red blood cells - given overnight * Restart home medications * Hold aspirin and Gleevec * Colonoscopy in the morning * CBC, CMP, mag in the morning * CODE STATUS full code * VT prophylaxis with SCDs
[2019-06-14] MEDS ORDERED: LOXAPINE 25 MG PO SCH (18:00)
[2019-06-14] MEDS ORDERED: Polyethylene Glycol/Electrolytes 4,000 ML Bottle PO ONE (20:00)
[2019-06-14] MEDS ORDERED: Melatonin 3 MG Tab PO SCH (21:00)
[2019-06-14] MEDS ORDERED: Temazepam 30 MG Cap PO SCH (21:00)
[2019-06-14] MEDS ORDERED: traZODone 50 MG Tab PO SCH (21:00)
[2019-06-15] MEDS: Insulin Lispro 100 Units/ML 3 ML Vial SUBCUT SCH ×2 (08:17→16:12)
[2019-06-15] MEDS: Metoprolol Succinate 25 MG Tab.ER PO SCH (08:19)
[2019-06-15] MEDS: Carboxymethylcellulose Sodium 1% Ophth Gel 15 ML Bottle EYEBOTH SCH (08:20)
[2019-06-15] MEDS: Pantoprazole 40 MG Vial IVPUSH SCH (08:20)
[2019-06-15] MEDS: Levothyroxine 100 MCG Tab PO SCH ×2 (08:28→11:18)
[2019-06-15] MEDS ORDERED: Simvastatin 10 MG Tab PO SCH (09:00)
[2019-06-15] MEDS ORDERED: Propofol 200 MG/20 ML SDV ONE ×2 (10:15→10:33)
[2019-06-15] MEDS ORDERED: Lactated Ringers 1,000 ML ONE (10:55)
--- NOTE | 2019-06-15 11:08 | PCM48HPAN ---
Post Anesthesia Note - EVALUATION WITHIN 48HRS OF ANESTHETIC Vital Signs in Normal Range: Yes Patient Participated in Evaluation: Yes Respiratory Function Stable: Yes Airway Patent: Yes Cardiovascular Function Stable: Yes Hydration Status Stable: Yes Pain Control Satisfactory: Yes Nausea and Vomiting Control Satisfactory: Yes Mental Status Recovered: Yes Vital Signs: Last Vital Signs Temp 36.6 C 06/15/19 03:23 Pulse 60 06/15/19 08:19 Resp 16 06/15/19 03:23 BP 120/52 L 06/15/19 08:19 Pulse Ox 96 06/15/19 03:23 Orthostatic Blood Pressure [ 125/44 Standing] Orthostatic Blood Pressure [ 143/51 Supine] - COMMENTS/OBSERVATIONS Free Text/Narrative:: no anesthesia complications noted
--- NOTE | 2019-06-15 11:08 | PCM.PREANE ---
Preanesthetic Assessment - Anesthesia/Transfusion/Family Hx Anesthesia History: Prior Anesthesia Without Reaction Family History of Anesthesia Reaction: No Transfusion History: Unknown - Review of Systems General: No Symptoms Pulmonary: No Symptoms Cardiovascular: No Symptoms Gastrointestinal: No Symptoms Neurological: No Symptoms Other: Reports: Easy Bleeding, Easy Bruising, Diabetes (gluco check 94 ) - Physical Assessment NPO Status Date: 06/15/19 NPO Status Time: 00:00 Vital Signs: Last Vital Signs Temp 36.6 C 06/15/19 03:23 Pulse 60 06/15/19 08:19 Resp 16 06/15/19 03:23 BP 120/52 L 06/15/19 08:19 Pulse Ox 96 06/15/19 03:23 Orthostatic Blood Pressure [ 125/44 Standing] Orthostatic Blood Pressure [ 143/51 Supine] Height: 1.52 m Weight: 65.998 kg ASA Class: 3 Mental Status: Alert & Oriented x3 Airway Class: Mallampati = 1 Dentition: Reports: Partial Thyro-Mental Finger Breadths: 3 Mouth Opening Finger Breadths: 3 ROM/Head Extension: Full Lungs: Clear to Auscultation, Normal Respiratory Effort Cardiovascular: Regular Rate, Regular Rhythm - Lab Values: Laboratory Last Values WBC 4.67 K/mm3 (3.98-10.04) 06/15/19 05:34 RBC 3.28 M/mm3 (3.98-5.22) L 06/15/19 05:34 Hgb 10.3 gm/L (11.2-15.7) L 06/15/19 05:34 Hct 32.8 % (34.1-44.9) L 06/15/19 05:34 MCV 100.0 fl (79.4-94.8) H 06/15/19 05:34 MCH 31.4 pg (25.6-32.2) 06/15/19 05:34 MCHC 31.4 g/dl (32.2-35.5) L 06/15/19 05:34 RDW Std Deviation 76.9 fL (36.4-46.3) H 06/15/19 05:34 Plt Count 196 K/mm3 (182-369) 06/15/19 05:34 MPV 9.2 fl (9.4-12.3) L 06/15/19 05:34 Neut % (Auto) 66.9 % (34.0-71.1) 06/15/19 05:34 Lymph % (Auto) 21.6 % (19.3-51.7) 06/15/19 05:34 [place] % (Auto) 8.1 % (4.7-12.5) 06/15/19 05:34 Eos % (Auto) 2.8 (0.7-5.8) 06/15/19 05:34 Baso % (Auto) 0.6 % (0.1-1.2) 06/15/19 05:34 Neut # (Auto) 3.12 K/mm3 (1.56-6.13) 06/15/19 05:34 Lymph # (Auto) 1.01 K/mm3 (1.18-3.74) L 06/15/19 05:34 [place] # (Auto) 0.38 K/mm3 (0.24-0.36) H 06/15/19 05:34 Eos # (Auto) 0.13 K/mm3 (0.04-0.36) 06/15/19 05:34 Baso # (Auto) 0.03 K/mm3 (0.01-0.08) 06/15/19 05:34 Neutrophils % (Manual) 56 % (40-60) 06/13/19 20:00 Band Neutrophils % 0 % (0-10) 06/13/19 20:00 Lymphocytes % (Manual) 39 % (20-40) 06/13/19 20:00 Atypical Lymphs % 0 % 06/13/19 20:00 Monocytes % (Manual) 3 % (2-10) 06/13/19 20:00 Eosinophils % (Manual) 2 % (0.7-5.8) 06/13/19 20:00 Basophils % (Manual) 0 (0.1-1.2) L 06/13/19 20:00 Platelet Estimate Adequate 06/13/19 20:00 Plt Morphology Comment Normal 06/13/19 20:00 Hypochromasia 2+ moderate 06/13/19 20:00 Anisocytosis 2+ moder 06/13/19 20:00 RBC Morph Comment Not Reportable 06/13/19 20:00 ESR 40 mm/hr (0-20) H 06/13/19 20:00 PT 11.4 SECONDS (9.7-12.0) 06/13/19 20:00 INR 1.05 06/13/19 20:00 APTT 25 SECONDS (22-31) 06/13/19 20:00 Sodium 144 mEq/L (136-145) 06/15/19 05:34 Potassium 3.9 mEq/L (3.5-5.1) 06/15/19 05:34 Chloride 106 mEq/L (98-107) 06/15/19 05:34 Carbon Dioxide 28 mEq/L (21-32) 06/15/19 05:34 Anion Gap 13.9 (5-15) 06/15/19 05:34 BUN 42 mg/dL (7-18) H 06/15/19 05:34 Creatinine 1.1 mg/dL (0.55-1.02) H 06/15/19 05:34 Est Cr Clr Drug Dosing 37.11 mL/min 06/15/19 05:34 Estimated GFR (MDRD) 50 mL/min (>60) 06/15/19 05:34 BUN/Creatinine Ratio 38.2 (14-18) H 06/15/19 05:34 Glucose 104 mg/dL (80-115) 06/15/19 05:34 POC Glucose 96 mg/dL (80-115) 06/15/19 07:33 Calcium 8.5 mg/dL (8.5-10.1) 06/15/19 05:34 Magnesium 2.1 mg/dl (1.8-2.4) 06/15/19 05:34 Total Bilirubin 0.6 mg/dL (0.2-1.0) 06/15/19 05:34 AST 41 U/L (15-37) H 06/15/19 05:34 ALT 30 U/L (14-59) 06/15/19 05:34 Alkaline Phosphatase 76 U/L (46-116) 06/15/19 05:34 C-Reactive Protein < 0.2 mg/dL (<1.0) 06/13/19 20:00 NT-Pro-B Natriuret Pep 224 pg/mL (0-125) H 06/13/19 20:00 Total Protein 7.0 g/dl (6.4-8.2) 06/15/19 05:34 Albumin 3.3 g/dl (3.4-5.0) L 06/15/19 05:34 Globulin 3.7 gm/dL 06/15/19 05:34 Albumin/Globulin Ratio 0.9 (1-2) L 06/15/19 05:34 Urine Color Yellow (Yellow) 06/13/19 20:15 Urine Appearance Clear (Clear) 06/13/19 20:15 Urine pH 6.5 (5.0-8.0) 06/13/19 20:15 Ur Specific [place] 1.015 (1.005-1.030) 06/13/19 20:15 Urine Protein Negative (Negative) 06/13/19 20:15 Urine Glucose (UA) Negative (Negative) 06/13/19 20:15 Urine Ketones Negative (Negative) 06/13/19 20:15 Urine Occult Blood Negative (Negative) 06/13/19 20:15 Urine Nitrite Negative (Negative) 06/13/19 20:15 Urine Bilirubin Negative (Negative) 06/13/19 20:15 Urine Urobilinogen 0.2 (0.2-1.0) 06/13/19 20:15 Ur Leukocyte Esterase Negative (Negative) 06/13/19 20:15 Urine RBC Not seen /hpf (0-5) 06/13/19 20:15 Urine WBC Not seen /hpf (0-5) 06/13/19 20:15 Ur Squamous Epith Cells 0-5 /hpf (0-5) 06/13/19 20:15 Urine Bacteria Not seen /hpf (FEW) 06/13/19 20:15 Urine Mucus Not seen /hpf (FEW) 06/13/19 20:15 MRSA (PCR) Negative 06/13/19 22:45 Blood Type A POSITIVE 06/13/19 20:00 Gel Antibody Screen Negative 06/13/19 20:00 Crossmatch See Detail 06/13/19 20:00 - Allergies Allergies/Adverse Reactions: Allergies Allergy/AdvReac Type Severity Reaction Status Date / Time Influenza Virus Vaccines AdvReac Anxiety Verified 06/13/19 23:45 - Anesthesia Plan Pre-Op Medication Ordered: Beta Bryon Beta Bryon: Metoprolol Med Last Dose Date: 06/15/19 Med Last Dose Time: 08:15 - Acknowledgements Anesthesia Type Planned: MAC Pt an Appropriate Candidate for the Planned Anesthesia: Yes Alternatives and Risks of Anesthesia Discussed w Pt/Guardian: Yes Pt/Guardian Understands and Agrees with Anesthesia Plan: Yes PreAnesthesia Questionnaire Other HEENT History: tooth abscess Cardiovascular History: Reports: Heart Failure, High Cholesterol, Hypertension Other Cardiovascular History: venous insufficiency, atypical chest pain; angina pectoris inspecified. Respiratory History: Reports: None Gastrointestinal History: Reports: GERD, GI Bleed Other Gastrointestinal History: obesity, ascites Other Genitourinary History: Hematuria STEEL CHECKER History: Reports: None Musculoskeletal History: Reports: Fracture Other Musculoskeletal History: fx two bones in foot 2.5yrs ago. Neurological History: Reports: None, Brain Injury, Other (See Below) Other Neuro History: personal history of traumatic brain injury Psychiatric History: Reports: Bipolar, Depression Other Psychiatric History: Check up with psychiatrist q3-4 months Endocrine/Metabolic History: Reports: Diabetes, Type II, Hypothyroidism, Obesity /BMI 30+ Hematologic History: Reports: Anemia, Blood Transfusion(s) Immunologic History: Reports: None Oncologic (Cancer) History: Reports: Leukemia Dermatologic History: Reports: Cellulitis - Infectious Disease History Infectious Disease History: Reports: MRSA - Past Surgical History Head Surgeries/Procedures: Reports: None HEENT Surgical History: Reports: Cataract Surgery, Oral Surgery GI Surgical History: Reports: Appendectomy, Cholecystectomy Female Surgical History: Reports: Tubal Ligation Neurological Surgical History: Reports: None Other Musculoskeletal Surgeries/Procedures:: Left leg surgery. Oncologic Surgical History: Reports: None - SUBSTANCE USE Smoking Status *Q: Never Smoker Second Hand Smoke Exposure: No Recreational Drug Use History: No - HOME MEDS Home Medications: Home Meds Acetaminophen 650 mg PO Q8H PRN 08/31/15 [History] Aspirin 81 mg PO DAILY 08/31/15 [History] Furosemide [Lasix] 40 mg PO TID 08/31/15 [History] Insulin Aspart [Novolog Flexpen] 6 units SUBCUT BIDMEALS 08/31/15 [History] Losartan Potassium [Cozaar] 100 mg PO DAILY 08/31/15 [History] Loxapine Succinate [Loxapine] 25 mg PO QPM 08/31/15 [History] Loxapine Succinate [Loxapine] 50 mg PO BEDTIME 08/31/15 [History] cloNIDine [Catapres] 0.3 mg PO BID 08/31/15 [History] traZODone 100 mg PO BEDTIME 08/31/15 [History] Dextromethorphan/guaiFENesin [Robitussin DM] 10 ml PO Q4H PRN 10/02/16 [History] Imatinib Mesylate [Gleevec] 600 mg PO DAILY 10/02/16 [History] Memantine HCl [Namenda] 5 mg PO DAILY 08/30/17 [History] Nystatin [Nystatin Crm] 1 applic TOP BID PRN 08/30/17 [History] Temazepam 30 mg PO BEDTIME 08/30/17 [History] atorvaSTATin [Lipitor] 10 mg PO DAILY 08/30/17 [History] Carboxymethylcellulose Sodium [Refresh Tears 0.5%] 1 drop EYEBOTH BID 01/19/18 [ History] Ondansetron [Zofran ODT] 4 mg SL Q4HR PRN 01/19/18 [History] Spironolactone [Aldactone] 25 mg PO DAILY 01/19/18 [History] Levothyroxine Sodium [Synthroid] 100 mcg PO DAILY 01/21/18 [History] Metoprolol Succinate [Toprol XL] 25 mg PO DAILY 01/21/18 [History] Insulin Degludec [Tresiba] 13 units SQ BEDTIME 01/24/19 [History] Melatonin 5 mg PO BEDTIME 01/24/19 [History] Pantoprazole [ProTONIX] 40 mg PO BID 01/24/19 [History] Polyethylene Glycol 3350 [Miralax] 17 gm PO ASDIRECTED PRN 02/22/19 [History] Insulin Aspart [NovoLOG] 2 unit SQ ACDINNER 06/13/19 [History] Iron Polysaccharide Complex [Ferric X-150] 150 mg PO DAILY 06/13/19 [History] Silver Sulfadiazine [Silvadene 1% Cream 20 GM] 1 applic TOP DAILY 06/13/19 [ History] - CURRENT (IN HOUSE) MEDS Current Meds: Current Medications Artificial Tears (Refresh Liquigel 1%) 0 ml EYEBOTH BID [facility] Last Admin: 06/15/19 08:20 Dose: 1 drop Clonidine HCl (Catapres) 0.3 mg PO BID [facility] Last Admin: 06/14/19 20:12 Dose: 0.3 mg Furosemide (Lasix) 40 mg PO TID [facility] Last Admin: 06/14/19 20:11 Dose: 40 mg Insulin Human Lispro (Humalog) 0 unit SUBCUT QIDACANDBED [facility]; Protocol Last Admin: 06/15/19 08:17 Dose: Not Given Levothyroxine Sodium (Synthroid) 100 mcg PO ACBREAKFAST [facility] Last Admin: 06/15/19 08:28 Dose: Not Given Losartan Potassium (Cozaar) 100 mg PO DAILY [facility] Last Admin: 06/14/19 14:11 Dose: 100 mg Melatonin (Melatonin) 6 mg PO BEDTIME [facility] Last Admin: 06/14/19 20:07 Dose: 6 mg Metoprolol Succinate (Toprol Xl) 25 mg PO DAILY [facility] Last Admin: 06/15/19 08:19 Dose: 25 mg Nystatin (Nystatin Crm) 0 gm TOP BID PRN PRN Reason: Itching Pantoprazole Sodium (Protonix Iv) 40 mg IVPUSH Q12H [facility] Last Admin: 06/15/19 08:20 Dose: 40 mg Loxapine 25 Mg 0 each PO QPM [facility] Last Admin: 06/14/19 17:31 Dose: 1 each Loxapine 50 Mg 0 each PO BEDTIME [facility] Last Admin: 06/14/19 20:17 Dose: 2 each Simvastatin (Zocor) 10 mg PO DAILY [facility] Spironolactone (Aldactone) 25 mg PO DAILY [facility] Last Admin: 06/14/19 14:13 Dose: 25 mg Temazepam (Restoril) 30 mg PO BEDTIME [facility] Last Admin: 06/14/19 20:14 Dose: 30 mg Trazodone HCl (Trazodone) 100 mg PO BEDTIME [facility] Last Admin: 06/14/19 20:13 Dose: 100 mg Discontinued Medications Furosemide (Lasix) 20 mg IVPUSH ONETIME ONE Stop: 06/13/19 22:03 Last Admin: 06/14/19 00:36 Dose: 20 mg Sodium Chloride (Normal Saline) 1,000 mls @ 100 mls/hr IV ASDIRECTED [facility] Last Admin: 06/13/19 20:17 Dose: 100 mls/hr Lactated Ringer's (Ringers, Lactated) Confirm Administered Dose 1,000 mls @ as directed .ROUTE .STK-MED ONE Stop: 06/15/19 10:56 Metoprolol Tartrate (Lopressor) Confirm Administered Dose 5 mg .ROUTE .STK-MED ONE Stop: 06/14/19 12:08 Pantoprazole Sodium (Protonix Iv) 80 mg IVPUSH BOLUS ONE Stop: 06/13/19 21:08 Last Admin: 06/13/19 21:26 Dose: 80 mg Polyethylene Glycol/Electrolytes (Golytely) 4,000 ml PO ONETIME ONE Stop: 06/14/19 20:01 Last Admin: 06/14/19 20:07 Dose: 4,000 ml Propofol (Diprivan 20 Ml) Confirm Administered Dose 200 mg .ROUTE .STK-MED ONE Stop: 06/14/19 11:59 Propofol (Diprivan 20 Ml) Confirm Administered Dose 200 mg .ROUTE .STK-MED ONE Stop: 06/15/19 10:16 Propofol (Diprivan 20 Ml) Confirm Administered Dose 200 mg .ROUTE .STK-MED ONE Stop: 06/15/19 10:34 Temazepam (Restoril) 30 mg PO ONETIME ONE Stop: 06/13/19 22:02 Last Admin: 06/14/19 00:36 Dose: Not Given
[2019-06-15] MEDS: Furosemide 40 MG Tab PO SCH ×2 (11:14→16:12)
[2019-06-15] MEDS: cloNIDine 0.1 MG Tab PO SCH (11:15)
[2019-06-15] MEDS: Losartan 100 MG Tab PO SCH (11:17)
[2019-06-15] MEDS: Spironolactone 25 MG Tab PO SCH (11:18)
--- NOTE | 2019-06-15 11:56 | OR ---
DATE OF OPERATION: 06/15/2019 SURGEON: Hector Kirby MD PREOPERATIVE DIAGNOSIS: Lower gastrointestinal bleed. POSTOPERATIVE DIAGNOSIS: Lower gastrointestinal bleed. OPERATION PERFORMED: Diagnostic flexible sigmoidoscopy, injection of submucosal tattoo, and clip application to control bleeding x3. ANESTHESIA: MAC. FINDINGS: She had an area of active bleeding in the sigmoid colon about approximately 50 cm from the anal verge in the sigmoid colon. There was a pulsatility to the mucosa overlying an area of active bleeding in the back side of a mucosal fold. This was not directly related to a diverticulum that I could appreciate. I did not advance the scope beyond this since I had found the source of her bleeding and she just had a colonoscopy 4 months ago. DISPOSITION: Stable at the end of procedure. ESTIMATED BLOOD LOSS: Minimal. COMPLICATIONS: None. INDICATION: The patient is a 64-year-old female who presented with gastrointestinal bleeding. She reported both dark blood and bright red blood per rectum. She just had a colonoscopy 4 months ago. The patient I am told by her sister had GOLD cauterization of both the stomach and the colon. I did an EGD yesterday and found no evidence of upper GI bleeding. She was prepped last night and a colonoscopy was planned. The patient was fully informed of the major risks, benefits, and alternatives. I also discussed with her sister the risks, benefits, alternatives. Both gave informed consent of what was done. DESCRIPTION OF PROCEDURE: The patient was brought to the gastro suite and placed in the left lateral decubitus position. She was given monitored anesthesia. Digital rectal exam was performed. I did not appreciate gross blood. I introduced the colonoscope with copious lubrication into the rectum. I advanced the scope slowly keeping the lumen in view at all times. She had quite a circuitous redundant sigmoid colon with extensive diverticulosis. At about 50 cm, I reached an area which was actively bleeding with pulsatility. I inspected the area. I did not appreciate a mass or polyps. I did note some pulsatility with a couple of areas of active bleeding over an area perhaps the size of a quarter of a postage stamp not within a diverticulum. A hemoclip instrument was obtained and this was passed. I passed 3 hemoclips over the lesion in series one after the other until the bleeding had stopped. The entire lesion was incorporated within the 3 clips. I inspected the area for further bleeding and none was identified. At this point, I injected the opposite mucosal fold with endoscopic tattoo. 2 mL of tattoo were used for this purpose for easy both internal and external examination in the event that she has a massive bleed in the future. At this point, the scope was not advanced for fear of dislodging the rather effective clips. The scope was withdrawn. Air was evacuated on the way out. She had no complications and tolerated the procedure well with minimal blood loss. [place] /[id number]
--- NOTE | 2019-06-15 14:45 | PCM.DCSUM1 ---
Discharge Summary - Hospital Course HPI Initial Comments: 64-year-old developmentally handicapped female who is a poor historian submitted under observation secondary to anemia due to hematochezia. When I evaluated the patient she had been given prescription medication for most of the history is from the emergency room physician's notes. Patient reported having blood in her stools 2 times today with formed stools. She told me that she had diarrhea last night. She believes that this been blood in her stool and urine as well for a few days. She denies any abdominal pain, fever, chills. She has a history of chronic myelogenous leukemia and has received 2 blood transfusions this month. Patient believes that she had a colonoscopy and upper endoscopy approximately 6 months ago and they found a lesion in her stomach. Patient continues on one baby aspirin in the morning and 2 in the evening. Chest states that she is tired more than normal. Denies any shortness breath, chest pain, abdominal pain. In the emergency room she was found to be anemic with a hemoglobin of 8.2. Stool for occult blood was positive. Coags were normal as well as electrolytes. BUN was elevated at 59. Creatinine was 1.6 with a GFR of 32. She is diabetic and glucose was elevated at 151. C-reactive protein was less than 0.2. BNP was 224. Total white count was 5.5-1 platelets of 214. Patient was given Protonix 80 mg IV and started on 1 unit of packed red blood cells. Dr. Kirby is planning on upper endoscopy tomorrow. Diagnosis: Stroke: No - Discharge Data Discharge Date: 06/15/19 Discharge Disposition: Home, Self-Care 01 Condition: Good - Referral to Home Health Primary Care Physician: Luís Cespedes MD - Patient Summary/Data Consults: Consultations 06/14/19 10:49 Consult to Physician [CONS] Routine Hospital Course: patient had both an upper and lower endoscopy done following 1 unit of packed red blood cells. Upper endoscopy showed a sliding hiatal hernia but no erosions or bleeding. Lower endoscopy did show At about 50 cm, an area of actively bleeding with pulsatility was inspected. A Hemoclip instrument was obtained and 3 hemoclips over the lesion in series 1 after the other until the bleeding had stopped. The entire lesion was incorporated within the 3 clips. No other bleeding was identified. 2 mL of tattoo or use and injected in the opposite mucosal fold with endoscopic tattoo. patient was brought back to the room and did well. She was stable for discharge at this time. - Patient Instructions Diet: Diabetic Diet Activity: As Tolerated Driving: Do Not Drive Showering/Bathing: May Shower Other/Special Instructions: Follow up with PCP and Dr. Dow this week. - Discharge Plan *PRESCRIPTION DRUG MONITORING PROGRAM REVIEWED*: Not Applicable *COPY OF PRESCRIPTION DRUG MONITORING REPORT IN PATIENT KAELA: Not Applicable Home Medications: Home Meds Acetaminophen 650 mg PO Q8H PRN 08/31/15 [History] Furosemide [Lasix] 40 mg PO TID 08/31/15 [History] Insulin Aspart [Novolog Flexpen] 6 units SUBCUT BIDMEALS 08/31/15 [History] Losartan Potassium [Cozaar] 100 mg PO DAILY 08/31/15 [History] Loxapine Succinate [Loxapine] 25 mg PO QPM 08/31/15 [History] Loxapine Succinate [Loxapine] 50 mg PO BEDTIME 08/31/15 [History] cloNIDine [Catapres] 0.3 mg PO BID 08/31/15 [History] traZODone 100 mg PO BEDTIME 08/31/15 [History] Dextromethorphan/guaiFENesin [Robitussin DM] 10 ml PO Q4H PRN 10/02/16 [History] Imatinib Mesylate [Gleevec] 600 mg PO DAILY 10/02/16 [History] Memantine HCl [Namenda] 5 mg PO DAILY 08/30/17 [History] Nystatin [Nystatin Crm] 1 applic TOP BID PRN 08/30/17 [History] Temazepam 30 mg PO BEDTIME 08/30/17 [History] atorvaSTATin [Lipitor] 10 mg PO DAILY 08/30/17 [History] Carboxymethylcellulose Sodium [Refresh Tears 0.5%] 1 drop EYEBOTH BID 01/19/18 [ History] Ondansetron [Zofran ODT] 4 mg SL Q4HR PRN 01/19/18 [History] Spironolactone [Aldactone] 25 mg PO DAILY 01/19/18 [History] Levothyroxine Sodium [Synthroid] 100 mcg PO DAILY 01/21/18 [History] Metoprolol Succinate [Toprol XL] 25 mg PO DAILY 04/22/18 [History] Insulin Degludec [Tresiba] 13 units SQ BEDTIME 01/24/19 [History] Melatonin 5 mg PO BEDTIME 01/24/19 [History] Pantoprazole [ProTONIX] 40 mg PO BID 01/24/19 [History] Polyethylene Glycol 3350 [Miralax] 17 gm PO ASDIRECTED PRN 02/22/19 [History] Insulin Aspart [NovoLOG] 2 unit SQ ACDINNER 06/13/19 [History] Iron Polysaccharide Complex [Ferric X-150] 150 mg PO DAILY 06/13/19 [History] Silver Sulfadiazine [Silvadene 1% Cream 20 GM] 1 applic TOP DAILY 06/13/19 [ History] Oxygen Therapy Mode: Room Air Patient Handouts: Blood Transfusion, Adult, [id number] Referrals: Luís Cespedes MD [Primary Care Provider] - (Follow-up with this week.) - Discharge Summary/Plan Comment DC Time >30 min.: Yes Discharge Summary/Plan Comment: patient is discharged to home to follow-up with her primary care provider and surgery. - General Info Date of Service: 06/15/19 Admission Dx/Problem (Free Text: Admission Diagnosis/Problem Admission Diagnosis/Problem Anemia Subjective Update: patient states that she is doing well. She has no complaints. - Review of Systems General: Reports: No Symptoms HEENT: Reports: No Symptoms Pulmonary: Reports: No Symptoms Cardiovascular: Reports: No Symptoms Gastrointestinal: Reports: No Symptoms - Patient Data Vitals - Most Recent: Last Vital Signs Temp 97.9 F 06/15/19 03:23 Pulse 60 06/15/19 08:19 Resp 16 06/15/19 03:23 BP 167/70 H 06/15/19 11:17 Pulse Ox 96 06/15/19 03:23 Orthostatic Blood Pressure [ 125/44 Standing] Orthostatic Blood Pressure [ 143/51 Supine] Weight - Most Recent: 145 lb 8 oz I&O - Last 24 hours: Intake & Output 06/14/19 06/15/19 06/15/19 22:59 06:59 14:59 Intake Total 2100 3000 120 Output Total 300 1600 Balance 1800 1400 120 Lab Results - Last 24 hrs: Laboratory Results - last 24 hr 06/14/19 06/14/19 06/14/19 Range/Units 17:52 18:39 21:37 WBC (3.98-10.04) K/mm3 RBC (3.98-5.22) M/mm3 Hgb (11.2-15.7) gm/L Hct (34.1-44.9) % MCV (79.4-94.8) fl MCH (25.6-32.2) pg MCHC (32.2-35.5) g/dl RDW Std Deviation (36.4-46.3) fL Plt Count (182-369) K/mm3 MPV (9.4-12.3) fl Neut % (Auto) (34.0-71.1) % Lymph % (Auto) (19.3-51.7) % [place] % (Auto) (4.7-12.5) % Eos % (Auto) (0.7-5.8) Baso % (Auto) (0.1-1.2) % Neut # (Auto) (1.56-6.13) K/mm3 Lymph # (Auto) (1.18-3.74) K/mm3 [place] # (Auto) (0.24-0.36) K/mm3 Eos # (Auto) (0.04-0.36) K/mm3 Baso # (Auto) (0.01-0.08) K/mm3 Sodium (136-145) mEq/L Potassium (3.5-5.1) mEq/L Chloride (98-107) mEq/L Carbon Dioxide (21-32) mEq/L Anion Gap (5-15) BUN (7-18) mg/dL Creatinine (0.55-1.02) mg/dL Est Cr Clr Drug Dosing mL/min Estimated GFR (MDRD) (>60) mL/min BUN/Creatinine Ratio (14-18) Glucose (80-115) mg/dL POC Glucose 78 L 163 H 76 L (80-115) mg/dL Calcium (8.5-10.1) mg/dL Magnesium (1.8-2.4) mg/dl Total Bilirubin (0.2-1.0) mg/dL AST (15-37) U/L ALT (14-59) U/L Alkaline Phosphatase (46-116) U/L Total Protein (6.4-8.2) g/dl Albumin (3.4-5.0) g/dl Globulin gm/dL Albumin/Globulin Ratio (1-2) 06/14/19 06/14/19 06/15/19 Range/Units 22:16 22:49 05:34 WBC 4.67 (3.98-10.04) K/mm3 RBC 3.28 L (3.98-5.22) M/mm3 Hgb 10.3 L (11.2-15.7) gm/L Hct 32.8 L (34.1-44.9) % MCV 100.0 H (79.4-94.8) fl MCH 31.4 (25.6-32.2) pg MCHC 31.4 L (32.2-35.5) g/dl RDW Std Deviation 76.9 H (36.4-46.3) fL Plt Count 196 (182-369) K/mm3 MPV 9.2 L (9.4-12.3) fl Neut % (Auto) 66.9 (34.0-71.1) % Lymph % (Auto) 21.6 (19.3-51.7) % [place] % (Auto) 8.1 (4.7-12.5) % Eos % (Auto) 2.8 (0.7-5.8) Baso % (Auto) 0.6 (0.1-1.2) % Neut # (Auto) 3.12 (1.56-6.13) K/mm3 Lymph # (Auto) 1.01 L (1.18-3.74) K/mm3 [place] # (Auto) 0.38 H (0.24-0.36) K/mm3 Eos # (Auto) 0.13 (0.04-0.36) K/mm3 Baso # (Auto) 0.03 (0.01-0.08) K/mm3 Sodium (136-145) mEq/L Potassium (3.5-5.1) mEq/L Chloride (98-107) mEq/L Carbon Dioxide (21-32) mEq/L Anion Gap (5-15) BUN (7-18) mg/dL Creatinine (0.55-1.02) mg/dL Est Cr Clr Drug Dosing mL/min Estimated GFR (MDRD) (>60) mL/min BUN/Creatinine Ratio (14-18) Glucose (80-115) mg/dL POC Glucose 70 L 104 (80-115) mg/dL Calcium (8.5-10.1) mg/dL Magnesium (1.8-2.4) mg/dl Total Bilirubin (0.2-1.0) mg/dL AST (15-37) U/L ALT (14-59) U/L Alkaline Phosphatase (46-116) U/L Total Protein (6.4-8.2) g/dl Albumin (3.4-5.0) g/dl Globulin gm/dL Albumin/Globulin Ratio (1-2) 06/15/19 06/15/19 06/15/19 Range/Units 05:34 07:33 12:13 WBC (3.98-10.04) K/mm3 RBC (3.98-5.22) M/mm3 Hgb (11.2-15.7) gm/L Hct (34.1-44.9) % MCV (79.4-94.8) fl MCH (25.6-32.2) pg MCHC (32.2-35.5) g/dl RDW Std Deviation (36.4-46.3) fL Plt Count (182-369) K/mm3 MPV (9.4-12.3) fl Neut % (Auto) (34.0-71.1) % Lymph % (Auto) (19.3-51.7) % [place] % (Auto) (4.7-12.5) % Eos % (Auto) (0.7-5.8) Baso % (Auto) (0.1-1.2) % Neut # (Auto) (1.56-6.13) K/mm3 Lymph # (Auto) (1.18-3.74) K/mm3 [place] # (Auto) (0.24-0.36) K/mm3 Eos # (Auto) (0.04-0.36) K/mm3 Baso # (Auto) (0.01-0.08) K/mm3 Sodium 144 (136-145) mEq/L Potassium 3.9 (3.5-5.1) mEq/L Chloride 106 (98-107) mEq/L Carbon Dioxide 28 (21-32) mEq/L Anion Gap 13.9 (5-15) BUN 42 H (7-18) mg/dL Creatinine 1.1 H (0.55-1.02) mg/dL Est Cr Clr Drug Dosing 37.11 mL/min Estimated GFR (MDRD) 50 (>60) mL/min BUN/Creatinine Ratio 38.2 H (14-18) Glucose 104 (80-115) mg/dL POC Glucose 96 92 (80-115) mg/dL Calcium 8.5 (8.5-10.1) mg/dL Magnesium 2.1 (1.8-2.4) mg/dl Total Bilirubin 0.6 (0.2-1.0) mg/dL AST 41 H (15-37) U/L ALT 30 (14-59) U/L Alkaline Phosphatase 76 (46-116) U/L Total Protein 7.0 (6.4-8.2) g/dl Albumin 3.3 L (3.4-5.0) g/dl Globulin 3.7 gm/dL Albumin/Globulin Ratio 0.9 L (1-2) ROSA ISELA Results - Last 24 hrs: Microbiology 06/13/19 22:45 MRSA Culture - Final Nasal/Axilla/Groin NO MRSA ISOLATED Med Orders - Current: Current Medications Artificial Tears (Refresh Liquigel 1%) 0 ml EYEBOTH BID [facility] Last Admin: 06/15/19 08:20 Dose: 1 drop Clonidine HCl (Catapres) 0.3 mg PO BID [facility] Last Admin: 06/15/19 11:15 Dose: 0.3 mg Furosemide (Lasix) 40 mg PO TID [facility] Last Admin: 06/15/19 11:14 Dose: 40 mg Insulin Human Lispro (Humalog) 0 unit SUBCUT QIDACANDBED [facility]; Protocol Last Admin: 06/15/19 08:17 Dose: Not Given Levothyroxine Sodium (Synthroid) 100 mcg PO ACBREAKFAST [facility] Last Admin: 06/15/19 11:18 Dose: 100 mcg Losartan Potassium (Cozaar) 100 mg PO DAILY [facility] Last Admin: 06/15/19 11:17 Dose: 100 mg Melatonin (Melatonin) 6 mg PO BEDTIME [facility] Last Admin: 06/14/19 20:07 Dose: 6 mg Metoprolol Succinate (Toprol Xl) 25 mg PO DAILY [facility] Last Admin: 06/15/19 08:19 Dose: 25 mg Nystatin (Nystatin Crm) 0 gm TOP BID PRN PRN Reason: Itching Pantoprazole Sodium (Protonix Iv) 40 mg IVPUSH Q12H [facility] Last Admin: 06/15/19 08:20 Dose: 40 mg Loxapine 25 Mg 0 each PO QPM [facility] Last Admin: 06/14/19 17:31 Dose: 1 each Loxapine 50 Mg 0 each PO BEDTIME CELI Last Admin: 06/14/19 20:17 Dose: 2 each Simvastatin (Zocor) 10 mg PO DAILY [facility] Last Admin: 06/15/19 11:16 Dose: 10 mg Spironolactone (Aldactone) 25 mg PO DAILY [facility] Last Admin: 06/15/19 11:18 Dose: 25 mg Temazepam (Restoril) 30 mg PO BEDTIME [facility] Last Admin: 06/14/19 20:14 Dose: 30 mg Trazodone HCl (Trazodone) 100 mg PO BEDTIME [facility] Last Admin: 06/14/19 20:13 Dose: 100 mg Discontinued Medications Furosemide (Lasix) 20 mg IVPUSH ONETIME ONE Stop: 06/13/19 22:03 Last Admin: 06/14/19 00:36 Dose: 20 mg Sodium Chloride (Normal Saline) 1,000 mls @ 100 mls/hr IV ASDIRECTED [facility] Last Admin: 06/13/19 20:17 Dose: 100 mls/hr Lactated Ringer's (Ringers, Lactated) Confirm Administered Dose 1,000 mls @ as directed .ROUTE .STK-MED ONE Stop: 06/15/19 10:56 Metoprolol Tartrate (Lopressor) Confirm Administered Dose 5 mg .ROUTE .STK-MED ONE Stop: 06/14/19 12:08 Pantoprazole Sodium (Protonix Iv) 80 mg IVPUSH BOLUS ONE Stop: 06/13/19 21:08 Last Admin: 06/13/19 21:26 Dose: 80 mg Polyethylene Glycol/Electrolytes (Golytely) 4,000 ml PO ONETIME ONE Stop: 06/14/19 20:01 Last Admin: 06/14/19 20:07 Dose: 4,000 ml Propofol (Diprivan 20 Ml) Confirm Administered Dose 200 mg .ROUTE .STK-MED ONE Stop: 06/14/19 11:59 Propofol (Diprivan 20 Ml) Confirm Administered Dose 200 mg .ROUTE .STK-MED ONE Stop: 06/15/19 10:16 Propofol (Diprivan 20 Ml) Confirm Administered Dose 200 mg .ROUTE .STK-MED ONE Stop: 06/15/19 10:34 Temazepam (Restoril) 30 mg PO ONETIME ONE Stop: 06/13/19 22:02 Last Admin: 06/14/19 00:36 Dose: Not Given - Exam General: Reports: Alert, Oriented HEENT: Reports: Pupils Equal, Pupils Reactive, EOMI, Mucous Membr. Moist/[place] Neck: Reports: Supple Lungs: Reports: Clear to Auscultation, Normal Respiratory Effort Cardiovascular: Reports: Regular Rate, Regular Rhythm GI/Abdominal Exam: Normal Bowel Sounds, Soft, Non-Tender, No Organomegaly, No Distention, No Abnormal Bruit, No Mass Extremities: Normal Inspection, Normal Range of Motion, Non-Tender, No Pedal Edema Skin: Reports: Warm, Dry, Intact Neurological: Reports: No New Focal Deficit Psy/Mental Status: Reports: Alert, Normal Affect, Normal Mood Discharge Operative/Procedures - Procedures Performed Operations/Procedure Comment: upper and lower endoscopy
[2019-06-15 16:04] VITALS: BP 129/35; PULSE 75
--- NOTE | 2019-06-17 06:38 | CR ---
Chest: Portable view of the chest was obtained. Comparison: Previous chest x-ray of 01/19/18 and chest x-ray of 08/31/15. Heart size and mediastinum are within normal limits. Small portion of rib is missing within the posterior 7th rib. This appears as a stable finding from previous studies back to 2014. Uncertain if this is due to ununited fracture or represents previous rib resection. Lungs otherwise are clear. Bony structures are otherwise grossly intact. Impression: 1. Small portion of the posterior 7th rib is missing, please see above for further discussion. 2. Nothing acute is appreciated on portable chest x-ray. Diagnostic code #2
== END 2019-06-15 14:15 | disposition home or self-care (01) | DRG 378 ==
LOC: JD.ED 19:10 → JD.MS 22:07 → OBSVTOIN 06-14 17:36 → JD.MS 06-14 17:39
PROVIDERS: ADMIT Family Medicine; ATTEND Family Medicine
PROC: 30233N1 Transfusion of Nonautologous Red Blood Cells into Peripheral Vein, Percutaneous Approach (ICD-10-PCS; 2019-06-14)
PROC: 0DJ08ZZ Inspection of Upper Intestinal Tract, Via Natural or Artificial Opening Endoscopic (ICD-10-PCS; 2019-06-14)
PROC: 0W3P8ZZ Control Bleeding in Gastrointestinal Tract, Via Natural or Artificial Opening Endoscopic (ICD-10-PCS; principal; 2019-06-15)
DX: K92.2 Gastrointestinal hemorrhage, unspecified (principal); I13.0 Hypertensive heart and chronic kidney disease with heart failure and stage 1 through stage 4 chronic kidney disease, or unspecified chronic kidney disease; D50.0 Iron deficiency anemia secondary to blood loss (chronic); Q43.8 Other specified congenital malformations of intestine; C92.10 Chronic myeloid leukemia, BCR/ABL-positive, not having achieved remission; R53.1 Weakness; R06.02 Shortness of breath; R53.83 Other fatigue; F82 Specific developmental disorder of motor function; R31.9 Hematuria, unspecified; D61.810 Antineoplastic chemotherapy induced pancytopenia; T45.1X5A Adverse effect of antineoplastic and immunosuppressive drugs, initial encounter; K57.90 Diverticulosis of intestine, part unspecified, without perforation or abscess without bleeding; N18.3 Chronic kidney disease, stage 3 (moderate); E11.9 Type 2 diabetes mellitus without complications; I11.0 Hypertensive heart disease with heart failure; E66.9 Obesity, unspecified; F03.90 Unspecified dementia, unspecified severity, without behavioral disturbance, psychotic disturbance, mood disturbance, and anxiety; E78.00 Pure hypercholesterolemia, unspecified; K21.9 Gastro-esophageal reflux disease without esophagitis; K44.9 Diaphragmatic hernia without obstruction or gangrene; E11.22 Type 2 diabetes mellitus with diabetic chronic kidney disease; I87.2 Venous insufficiency (chronic) (peripheral); F31.89 Other bipolar disorder; Z79.82 Long term (current) use of aspirin; Z79.4 Long term (current) use of insulin; Z79.899 Other long term (current) drug therapy; Z87.820 Personal history of traumatic brain injury; Z22.322 Carrier or suspected carrier of Methicillin resistant Staphylococcus aureus; Z85.6 Personal history of leukemia; Z68.28 Body mass index [BMI] 28.0-28.9, adult
CPT/HCPCS: 36415 ×2; 36430; 43235; 71045; 80053 ×2; 81001; 82962 ×2; 83735 ×2; 83880; 85007; 85025; 85027; 85610; 85652; 85730; 86140; 86850; 86900; 86901; 86922; 87070; 87641; 93005; 96361; 96374; 96375; 96376; 99285; A9270 ×7; C9113 ×2; G0378 ×2; J2704; J3490; J7040; P9016; 00731; 00811; 93010; J7120

== ENCOUNTER 2019-11-06 04:37 | Emergency (ER) | payer MEDICARE, MEDICAID ==
--- NOTE | 2019-11-06 04:58 | EDM.PDOC ---
ED HPI GENERAL MEDICAL PROBLEM - General Chief Complaint: Head Injury Stated Complaint: [facility] Time Seen by Provider: 11/06/19 04:39 Source of Information: Reports: Patient History Limitations: Reports: Physical Impairment (Mild dementia) - History of Present Illness INITIAL COMMENTS - FREE TEXT/NARRATIVE: Ms. Jurado is a pleasantly demented 64-year-old woman, a resident of [facility], with a past medical history significant for CHF, a traumatic brain injury, bipolar affective disorder, depression, diabetes, and CML, who is brought to the ED by EMS after she fell at her residence twice this morning, about 30 minutes apart. She acknowledges that she struck her face both times. She has a small ecchymosis about her left eye, an ecchymosis to her left cheek, and an ecchymosis under her right mandible. She says that her neck "will probably be okay". She denies any other injuries, although I noticed an ecchymosis to the dorsal aspect of her left hand, which may be old. She denies having a headache. The patient denies recent illness, such as fever, chills, cough, dyspnea, nausea , vomiting, constipation, diarrhea, abdominal pain, urinary symptoms, headache, or rash. The patient's PCP is Dr. Luís Cespedes. Her Hhematologist/Oncologist is Dr. Austin Dow. Her Internet Site Designer is Dr. Scottie Bae. Headache Pain Score (Numeric/FACES): 10 - Related Data Allergies Allergy/AdvReac Type Severity Reaction Status Date / Time aspirin Allergy Bleeding Verified 11/06/19 04:40 Influenza Virus Vaccines AdvReac Anxiety Verified 11/06/19 04:40 Home Meds: Home Meds Acetaminophen 650 mg PO Q8H PRN 08/31/15 [History] Furosemide [Lasix] 40 mg PO TID 08/31/15 [History] Insulin Aspart [Novolog Flexpen] 6 units SUBCUT BIDMEALS 08/31/15 [History] Losartan Potassium [Cozaar] 50 mg PO DAILY 08/31/15 [History] Loxapine Succinate [Loxapine] 25 mg PO QPM 08/31/15 [History] Loxapine Succinate [Loxapine] 50 mg PO BEDTIME 08/31/15 [History] cloNIDine [Catapres] 0.3 mg PO BID 08/31/15 [History] traZODone 100 mg PO BEDTIME 08/31/15 [History] Memantine HCl [Namenda] 5 mg PO DAILY 08/30/17 [History] Nystatin [Nystatin Crm] 1 applic TOP BID PRN 08/30/17 [History] Temazepam 30 mg PO BEDTIME 08/30/17 [History] atorvaSTATin [Lipitor] 10 mg PO DAILY 08/30/17 [History] Carboxymethylcellulose Sodium [Refresh Tears 0.5%] 1 drop EYEBOTH BID 01/19/18 [ History] Ondansetron [Zofran ODT] 4 mg SL Q4HR PRN 01/19/18 [History] Spironolactone [Aldactone] 25 mg PO DAILY 01/19/18 [History] Insulin Degludec [Tresiba] 13 units SQ BEDTIME 01/24/19 [History] Melatonin 5 mg PO BEDTIME 01/24/19 [History] Insulin Aspart [NovoLOG] 2 unit SQ ACDINNER 06/13/19 [History] Iron Polysaccharide Complex [Ferric X-150] 150 mg PO DAILY 06/13/19 [History] Polyethylene Glycol 3350 [Miralax] 17 gm PO DAILY PRN 06/28/19 [History] Metoprolol Succinate [Toprol XL] 25 mg PO DAILY 08/19/19 [History] Dasatinib [Sprycel] 50 mg PO DAILY 11/06/19 [History] Levothyroxine [Synthroid] 88 mcg PO DAILY 11/06/19 [History] Sucralfate [Carafate] 1 gm PO QID 11/06/19 [History] Past Medical History Cardiovascular History: Reports: Heart Failure, High Cholesterol, Hypertension, Other (See Below) (Right renal artery stenosis) Gastrointestinal History: Reports: GERD Genitourinary History: Reports: Chronic Renal Insuffiency Musculoskeletal History: Reports: Fracture (left femur) Neurological History: Reports: Brain Injury, Other (See Below) (Dementia) Psychiatric History: Reports: Bipolar, Depression Endocrine/Metabolic History: Reports: Diabetes, Type II, Hypothyroidism Hematologic History: Reports: Anemia, Blood Transfusion(s) Oncologic (Cancer) History: Reports: Leukemia (CML) - Infectious Disease History Infectious Disease History: Reports: MRSA - Past Surgical History HEENT Surgical History: Reports: Cataract Surgery, Oral Surgery (wisdom teeth extraction) GI Surgical History: Reports: Appendectomy, Cholecystectomy, Colonoscopy, EGD Female Surgical History: Reports: Tubal Ligation Musculoskeletal Surgical History: Reports: Other (See Below) (Left femur rodding Dec 2017) Oncologic Surgical History: Reports: Bone Marrow Aspiration Social & Family History - Family History Family Medical History: Noncontributory - Tobacco Use Smoking Status *Q: Former Smoker - Caffeine Use Caffeine Use: Reports: None Other Caffeine Use: 3 cups of coffee every day, one can of pop every other day. - Alcohol Use Alcohol Use History: Yes Alcohol Use Frequency: Rarely - Recreational Drug Use Recreational Drug Use: No - Living Situation & Occupation Living situation: Reports: , Assisted Living ([facility]) Occupation: Disabled ED ROS GENERAL - Review of Systems Review Of Systems: Comprehensive ROS is negative, except as noted in HPI. ED EXAM, HEAD INJURY - Physical Exam Exam: See Below Exam Limited By: No Limitations General Appearance: Alert, WD/WN, No Apparent Distress Head: Normocephalic, Facial Ecchymosis (about left eye, to left cheek, under right mandible), Facial Swelling (left cheek), Facial Tenderness (left cheek) Eyes: Bilateral Eye: EOMI, PERRL Ears: Normal External Exam, Normal Canal, Hearing Grossly Normal, Normal TMs Nose: Normal Inspection, Normal Mucousa, No Blood Throat/Mouth: Normal Inspection, Normal Lips, Normal Voice, No Airway Compromise Neck: Non-Tender, Full Range of Motion, Normal Alignment, Normal Inspection Respiratory: No Respiratory Distress, Lungs Clear, Normal Breath Sounds, No Accessory Muscle Use Cardiovascular: Normal Peripheral Pulses, Regular Rate, Rhythm, No Edema, No Gallop, No JVD, No Murmur, No Rub GI/Abdominal Exam: Normal Bowel Sounds, Soft, Non-Tender, No Organomegaly, No Distention, No Abnormal Bruit, No Mass (Female) Exam: Deferred Rectal (Female) Exam: Deferred Back Exam: Full Range of Motion, Normal Inspection, NT Extremities: Normal Range of Motion, No Pedal Edema, Normal Capillary Refill, Other (Ecchymosis to the dorsal aspect of the patient's left hand - may be old) Neurologic: student teacher II-XII nml As Tested, No Motor/Sensory Deficits, Alert Skin: Normal Color, Warm/Dry EKG INTERPRETATION EKG Date: 11/06/19 Time: 05:09 Rhythm: NSR Rate (Beats/Min): 66 [place]: Normal P-Wave: Present (1 AVB) QRS: Normal (Late transition) ST-T: Normal QT: Normal Comparison: No Change (06/13/2019) Course - Vital Signs Last Recorded V/S: Last Vital Signs Temp 36.6 C 11/06/19 06:51 Pulse 70 11/06/19 06:51 Resp 16 11/06/19 06:51 BP 132/45 L 11/06/19 06:51 Pulse Ox 100 11/06/19 04:40 Orthostatic Blood Pressure [ 101/35 Standing] Orthostatic Blood Pressure [ 112/39 Sitting] Orthostatic Blood Pressure [ 110/33 Supine] - Orders/Labs/Meds Orders: Active Orders 24 hr Category Date Time Status Accu Check [Blood Glucose Check, Bedside] [RC] ONETIME Care 11/06/19 04:52 Inactive EKG Documentation Completion [RC] STAT Care 11/06/19 04:51 Active Orthostatic Vital Signs [RC] STAT Care 11/06/19 04:51 Active Sodium Chloride 0.9% [Normal Saline] 1,000 ml Med 11/06/19 06:30 Active IV .BOLUS Transfuse PRBC [Transfuse Red Blood Cells] [COMM] Stat Oth 11/06/19 05:23 Ordered Transfuse Red Blood Cells [COMM] Stat Oth 11/06/19 05:23 Ordered Transfuse Red Blood Cells [COMM] Stat Ot 11/06/19 05:38 Ordered Medication Orders Sodium Chloride (Normal Saline) 1,000 mls @ 500 mls/hr IV .BOLUS CELI Last Admin: 11/06/19 06:56 Dose: 500 mls/hr Labs: Laboratory Tests 11/06/19 11/06/19 11/06/19 Range/Units 05:09 05:09 05:09 WBC 6.31 (3.98-10.04) K/mm3 RBC 2.29 L (3.98-5.22) M/mm3 Hgb 7.1 L* D (11.2-15.7) gm/dl Hct 22.2 L (34.1-44.9) % MCV 96.9 H (79.4-94.8) fl MCH 31.0 (25.6-32.2) pg MCHC 32.0 L (32.2-35.5) g/dl RDW Std Deviation 49.3 H (36.4-46.3) fL Plt Count 180 L (182-369) K/mm3 MPV 9.1 L (9.4-12.3) fl Neutrophils % (Manual) 65 H (40-60) % Band Neutrophils % 0 (0-10) % Lymphocytes % (Manual) 28 (20-40) % Atypical Lymphs % 0 % Monocytes % (Manual) 5 (2-10) % Eosinophils % (Manual) 1 (0.7-5.8) % Basophils % (Manual) 1 (0.1-1.2) Platelet Estimate Adequate Plt Morphology Comment Normal Hypochromasia 1+ slight Anisocytosis 2+ moderate Macrocytosis 1+ slight RBC Morph Comment Not Reportable PT 11.2 (9.7-12.0) SECONDS INR 1.03 APTT 26 (22-31) SECONDS D-Dimer, Quantitative 0.85 H (0.19-0.50) mg/L Sodium 137 (136-145) mEq/L Potassium 4.0 (3.5-5.1) mEq/L Chloride 102 (98-107) mEq/L Carbon Dioxide 24 (21-32) mEq/L Anion Gap 15.0 (5-15) BUN 83 H D (7-18) mg/dL Creatinine 1.6 H (0.55-1.02) mg/dL Est Cr Clr Drug Dosing TNP Estimated GFR (MDRD) 32 (>60) mL/min BUN/Creatinine Ratio 51.9 H (14-18) Glucose 120 H (80-115) mg/dL POC Glucose (80-115) mg/dL Calcium 8.4 L (8.5-10.1) mg/dL Magnesium 2.3 (1.8-2.4) mg/dl Total Bilirubin 0.2 (0.2-1.0) mg/dL AST 31 (15-37) U/L ALT 45 (14-59) U/L Alkaline Phosphatase 95 (46-116) U/L Troponin I 0.024 (0.00-0.056) ng/mL Total Protein 6.8 (6.4-8.2) g/dl Albumin 3.2 L (3.4-5.0) g/dl Globulin 3.6 gm/dL Albumin/Globulin Ratio 0.9 L (1-2) Urine Color (Yellow) Urine Appearance (Clear) Urine pH (5.0-8.0) Ur Specific [place] (1.005-1.030) Urine Protein (Negative) Urine Glucose (UA) (Negative) Urine Ketones (Negative) Urine Occult Blood (Negative) Urine Nitrite (Negative) Urine Bilirubin (Negative) Urine Urobilinogen (0.2-1.0) Ur Leukocyte Esterase (Negative) Urine RBC (0-5) /hpf Urine WBC (0-5) /hpf Ur Epithelial Cells (0-5) /hpf Amorphous Sediment (NOT SEEN) /hpf Urine Bacteria (FEW) /hpf Hyaline Casts (0-5) /lpf Urine Mucus (FEW) /hpf Blood Type Gel Antibody Screen Crossmatch 11/06/19 11/06/19 11/06/19 Range/Units 05:09 05:35 06:05 WBC (3.98-10.04) K/mm3 RBC (3.98-5.22) M/mm3 Hgb (11.2-15.7) gm/dl Hct (34.1-44.9) % MCV (79.4-94.8) fl MCH (25.6-32.2) pg MCHC (32.2-35.5) g/dl RDW Std Deviation (36.4-46.3) fL Plt Count (182-369) K/mm3 MPV (9.4-12.3) fl Neutrophils % (Manual) (40-60) % Band Neutrophils % (0-10) % Lymphocytes % (Manual) (20-40) % Atypical Lymphs % % Monocytes % (Manual) (2-10) % Eosinophils % (Manual) (0.7-5.8) % Basophils % (Manual) (0.1-1.2) Platelet Estimate Plt Morphology Comment Hypochromasia Anisocytosis Macrocytosis RBC Morph Comment PT (9.7-12.0) SECONDS INR APTT (22-31) SECONDS D-Dimer, Quantitative (0.19-0.50) mg/L Sodium (136-145) mEq/L Potassium (3.5-5.1) mEq/L Chloride (98-107) mEq/L Carbon Dioxide (21-32) mEq/L Anion Gap (5-15) BUN (7-18) mg/dL Creatinine (0.55-1.02) mg/dL Est Cr Clr Drug Dosing Estimated GFR (MDRD) (>60) mL/min BUN/Creatinine Ratio (14-18) Glucose (80-115) mg/dL POC Glucose 116 H (80-115) mg/dL Calcium (8.5-10.1) mg/dL Magnesium (1.8-2.4) mg/dl Total Bilirubin (0.2-1.0) mg/dL AST (15-37) U/L ALT (14-59) U/L Alkaline Phosphatase (46-116) U/L Troponin I (0.00-0.056) ng/mL Total Protein (6.4-8.2) g/dl Albumin (3.4-5.0) g/dl Globulin gm/dL Albumin/Globulin Ratio (1-2) Urine Color Yellow (Yellow) Urine Appearance Clear (Clear) Urine pH 5.5 (5.0-8.0) Ur Specific [place] 1.015 (1.005-1.030) Urine Protein Negative (Negative) Urine Glucose (UA) Negative (Negative) Urine Ketones Negative (Negative) Urine Occult Blood Trace-lysed H (Negative) Urine Nitrite Negative (Negative) Urine Bilirubin Negative (Negative) Urine Urobilinogen 0.2 (0.2-1.0) Ur Leukocyte Esterase Negative (Negative) Urine RBC 0-5 (0-5) /hpf Urine WBC 0-5 (0-5) /hpf Ur Epithelial Cells Not seen (0-5) /hpf Amorphous Sediment Few H (NOT SEEN) /hpf Urine Bacteria Rare (FEW) /hpf Hyaline Casts 10-20 H (0-5) /lpf Urine Mucus Few (FEW) /hpf Blood Type A POSITIVE Gel Antibody Screen Negative Crossmatch See Detail Meds: Medications Generic Name Dose Route Start Last Admin Trade Name Freq PRN Reason Stop Dose Admin Sodium Chloride 1,000 mls @ 500 mls/hr 11/06/19 06:30 11/06/19 06:56 Normal Saline IV 500 mls/hr .BOLUS CELI Administration - Re-Assessments/Exams Free Text/Narrative Re-Assessment/Exam: 11/06/19 04:53 As above, the patient fell twice this morning, striking her face both times. On examination, she has a relatively small ecchymosis about her left eye, tender ecchymosis and swelling to her left cheek, and a contusion to the underside of her right mandible. She also has a contusion to the dorsal aspect of her left hand, although that may be old. I have ordered a workup to evaluate for injuries including a CT of her head, face, and cervical spine. I have also ordered a workup to evaluate why she might have been lightheaded, including orthostatics, an Accu-Chek, CBC, CMP, magnesium, troponin, D-dimer with coags, a urinalysis, and an ECG. 11/06/19 05:25 The patient's CBC is remarkable for a H/H of 7.1/22.2 and platelets depressed at 180,000. I have ordered transfusion of a single unit of PRBCs. Given her history of heart failure, I think it unwise to transfuse 2 units. 11/06/19 05:48 The patient's CMP is remarkable for a BUN/Cr elevated at 83/1.6, and a blood glucose mildly elevated at 120, with the remainder of her CMP being unremarkable. Her magnesium level is within normal limits at 2.3. Her troponin is within normal limits at 0.0-4. Her D-dimer is elevated at 0.85. Her coags are within normal limits. The patient's elevated D-dimer is explained by her renal insufficiency, and is not consistent with a pulmonary embolus. 11/06/19 06:44 The patient is not orthostatic. Her urinalysis is unremarkable. 11/06/19 06:57 CT of the head without contrast is read by [facility] as "No acute findings." CT maxillofacial without contrast is read by [facility] as: 1. No fracture. 2. Right maxillary sinusitis. CT of the cervical spine without contrast is read by [facility] as "No fracture." I will discharge the patient home after the PRBCs have finished infusing. The patient's nurse estimates it will take about 2 hours. Departure - Departure Time of Disposition: 07:01 Disposition: Home, Self-Care 01 Condition: Good Clinical Impression: Fall at home, Chronic renal insufficiency Anemia Qualifiers: 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 type: pancytopenia , antineoplastic chemotherapy-induced Qualified Code(s): D61.810 - Antineoplastic chemotherapy induced pancytopenia - Discharge Information *PRESCRIPTION DRUG MONITORING PROGRAM REVIEWED*: Not Applicable *COPY OF PRESCRIPTION DRUG MONITORING REPORT IN PATIENT KAELA: Not Applicable Referrals: Luís Cespedes MD [Physician] - Austin Dow MD [Ordering Only Provider] - Scottie Bae MD [Ordering Only Provider] - Forms: ED Department Discharge Additional Instructions: Ms. Jurado was seen in the emergency room after falling at home, twice, striking her head both times. Workup in the ER included blood work, a urinalysis, positional blood pressure checks, a CT scan of her head, a CT scan of her face, a CT scan of her cervical spine, and an ECG. Her workup found her to be anemic with a hemoglobin of 7.1. She was transfused a single unit of PRBCs. Her workup also found that she has unchanged chronic renal insufficiency. The remainder of her workup was unremarkable. No intracranial or cervical spine injuries were found. We recommend that an ice pack be applied to the contusion on her left cheek. She may take [id number] Tylenol as needed for discomfort. Have her follow-up with her PCP, Dr. Luís Cespedes, her Rooming House Inspector/Oncologist, Dr. Austin Dow, and her Internet Site Designer, Dr. Scottie Bae, at her next scheduled appointment. If any other problems, please do not hesitate to return Ms. Jurado to the ER. Sepsis Event Note - Evaluation Sepsis Screening Result: No Definite Risk - Focused Exam Vital Signs: Vital Signs Temp Temp Pulse Resp BP Pulse Ox 11/06/19 06:51 36.6 C 70 16 132/45 L 11/06/19 06:36 36.6 C 72 16 119/43 L 11/06/19 04:40 36.6 C 65 19 110/41 L 100 Date Exam was Performed: 11/06/19 Time Exam was Performed: 07:03 - My Orders Last 24 Hours: My Active Orders 11/06/19 04:51 EKG Documentation Completion [RC] STAT Orthostatic Vital Signs [RC] STAT 11/06/19 04:52 Accu Check [Blood Glucose Check, Bedside] [RC] ONETIME 11/06/19 05:23 Transfuse PRBC [Transfuse Red Blood Cells] [COMM] Stat Transfuse Red Blood Cells [COMM] Stat 11/06/19 05:38 Transfuse Red Blood Cells [COMM] Stat 11/06/19 06:30 Sodium Chloride 0.9% [Normal Saline] 1,000 ml IV .BOLUS - Assessment/Plan Last 24 Hours: My Active Orders 11/06/19 04:51 EKG Documentation Completion [RC] STAT Orthostatic Vital Signs [RC] STAT 11/06/19 04:52 Accu Check [Blood Glucose Check, Bedside] [RC] ONETIME 11/06/19 05:23 Transfuse PRBC [Transfuse Red Blood Cells] [COMM] Stat Transfuse Red Blood Cells [COMM] Stat 11/06/19 05:38 Transfuse Red Blood Cells [COMM] Stat 11/06/19 06:30 Sodium Chloride 0.9% [Normal Saline] 1,000 ml IV .BOLUS
[2019-11-06] MEDS ORDERED: Sodium Chloride 0.9% 1,000 ML IV SCH (06:30)
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
[2019-11-06 06:53] VITALS: BP 132/45; PULSE 70
--- NOTE | 2019-11-06 06:54 | CT ---
CT facial bones Technique: Multiple axial sections through the facial bones were obtained. Intravenous contrast was not utilized. Reconstructed coronal and sagittal images were obtained. Comparison: No prior facial bone study is available. Findings: Mucosal thickening which is moderate in amount seen within the right maxillary sinus with possible air-fluid level within the right maxillary sinus. Minimal mucosal thickening seen within the left maxillary sinus. Other visualized sinuses are clear. Right and left globes are symmetric. Extraocular muscles and optic nerves appear symmetric in size between right and left sides. No facial bone fracture is identified. Impression: 1. Paranasal sinus findings. Difficult to exclude acute sinusitis as described above. 2. No acute facial bone fracture is identified. Diagnostic code #3 This report was dictated in [place] Standard Time
--- NOTE | 2019-11-06 06:54 | CT ---
CT cervical spine Technique: Multiple axial sections were obtained from above C1 inferiorly to the bottom of T2. Reconstructed coronal and sagittal images were obtained. Findings: Severe disc space narrowing with endplate irregularity is noted at C5-6 and C6-7. Lesser disc space narrowing at C7-T1. Posterior osteophytes are seen at the same levels which are most prominent C6-7. Anterior osteophytes are also noted. Mild diffuse degenerative apophyseal change is seen throughout the cervical spine. Mild right-sided neural foraminal stenosis is noted at C6-7. Other neural foramina are felt to be fairly well patent. No fracture is appreciated. No abnormal subluxation is seen. Impression: 1. Diffuse degenerative change is identified within the cervical spine. 2. No acute fracture or abnormal subluxation is identified. Diagnostic code #2 This report was dictated in [place] Standard Time
== END 2019-11-06 08:43 | disposition home or self-care (01) ==
LOC: JD.ED 04:37
DX: S00.12XA Contusion of left eyelid and periocular area, initial encounter (principal); S00.83XA Contusion of other part of head, initial encounter; S60.222A Contusion of left hand, initial encounter; E11.22 Type 2 diabetes mellitus with diabetic chronic kidney disease; I13.0 Hypertensive heart and chronic kidney disease with heart failure and stage 1 through stage 4 chronic kidney disease, or unspecified chronic kidney disease; N18.9 Chronic kidney disease, unspecified; I50.9 Heart failure, unspecified; D61.1 Drug-induced aplastic anemia; D61.810 Antineoplastic chemotherapy induced pancytopenia; T45.1X5A Adverse effect of antineoplastic and immunosuppressive drugs, initial encounter; E78.00 Pure hypercholesterolemia, unspecified; E03.9 Hypothyroidism, unspecified; K21.9 Gastro-esophageal reflux disease without esophagitis; F32.9 Major depressive disorder, single episode, unspecified; F03.90 Unspecified dementia, unspecified severity, without behavioral disturbance, psychotic disturbance, mood disturbance, and anxiety; Z88.6 Allergy status to analgesic agent; Z88.7 Allergy status to serum and vaccine; Z79.899 Other long term (current) drug therapy; Z79.4 Long term (current) use of insulin; Z79.890 Hormone replacement therapy; Z87.891 Personal history of nicotine dependence; W19.XXXA Unspecified fall, initial encounter; Y92.099 Unspecified place in other non-institutional residence as the place of occurrence of the external cause
CPT/HCPCS: 36415; 36430; 70450; 70486; 72125; 80053; 81001; 82962; 83735; 84484; 85007; 85027; 85379; 85610; 85730; 86850; 86900; 86901; 86922; 93005; 99284; J7030; P9016; 93010

== ENCOUNTER 2019-11-06 16:54 | Emergency (ER) | payer MEDICARE, MEDICAID ==
[2019-11-06] MEDS ORDERED: Sodium Chloride 0.9% 10 ML Syringe FLUSH PRN (17:21)
--- NOTE | 2019-11-06 17:32 | EDM.PDOC ---
ED HPI GENERAL MEDICAL PROBLEM - General Chief Complaint: Gastrointestinal Problem Stated Complaint: HEAVY RECTAL BLEEDING Time Seen by Provider: 11/06/19 17:04 Source of Information: Reports: Patient History Limitations: Reports: No Limitations - History of Present Illness INITIAL COMMENTS - FREE TEXT/NARRATIVE: Patient is a 64-year-old female who presents with complaints of bloody stool and dizziness. She has been having frequent falls recently. She was just discharged from this ER this morning after having a fall last night. Last night , her hemoglobin was found to be 7.1. She did receive a unit of blood prior to being discharged back to [place]. Patient states that she had a large bloody bowel movement prior to coming to the ER. She states "I lost the whole bag of blood into the toilet ". Patient does have a long history of GI bleeds. Her most recent colonoscopy and upper endoscopy was done in June of last year. At that time, they were able to locate an area of active bleeding which was repaired. Shortly after this procedure however patient did start having intermittent rectal bleeding again. Patient states that she has been having ongoing intermittent rectal bleeding, however never in this large amount. Patient does also have CLL and is currently on oral chemo for this. Her oncologist is Dr. Hernandez. Headache Pain Score (Numeric/FACES): 10 - Related Data Allergies Allergy/AdvReac Type Severity Reaction Status Date / Time aspirin Allergy Bleeding Verified 11/06/19 17:09 Influenza Virus Vaccines AdvReac Anxiety Verified 11/06/19 17:09 Home Meds: Home Meds Acetaminophen 650 mg PO Q8H PRN 08/31/15 [History] Furosemide [Lasix] 40 mg PO TID 08/31/15 [History] Insulin Aspart [Novolog Flexpen] 6 units SUBCUT BIDMEALS 08/31/15 [History] Losartan Potassium [Cozaar] 50 mg PO DAILY 08/31/15 [History] Loxapine Succinate [Loxapine] 25 mg PO QPM 08/31/15 [History] Loxapine Succinate [Loxapine] 50 mg PO BEDTIME 08/31/15 [History] cloNIDine [Catapres] 0.3 mg PO BID 08/31/15 [History] traZODone 100 mg PO BEDTIME 08/31/15 [History] Memantine HCl [Namenda] 5 mg PO DAILY 11/29/17 [History] Nystatin [Nystatin Crm] 1 applic TOP BID PRN 08/30/17 [History] Temazepam 30 mg PO BEDTIME 08/30/17 [History] atorvaSTATin [Lipitor] 10 mg PO DAILY 08/30/17 [History] Carboxymethylcellulose Sodium [Refresh Tears 0.5%] 1 drop EYEBOTH BID 01/19/18 [ History] Ondansetron [Zofran ODT] 4 mg SL Q4HR PRN 01/19/18 [History] Spironolactone [Aldactone] 25 mg PO DAILY 01/19/18 [History] Insulin Degludec [Tresiba] 13 units SQ BEDTIME 01/24/19 [History] Melatonin 5 mg PO BEDTIME 01/24/19 [History] Insulin Aspart [NovoLOG] 2 unit SQ ACDINNER 06/13/19 [History] Iron Polysaccharide Complex [Ferric X-150] 150 mg PO DAILY 06/13/19 [History] Polyethylene Glycol 3350 [Miralax] 17 gm PO DAILY PRN 06/28/19 [History] Metoprolol Succinate [Toprol XL] 25 mg PO DAILY 08/19/19 [History] Dasatinib [Sprycel] 50 mg PO DAILY 11/06/19 [History] Levothyroxine [Synthroid] 88 mcg PO DAILY 11/06/19 [History] Sucralfate [Carafate] 1 gm PO QID 11/06/19 [History] Past Medical History HEENT History: Reports: Other (See Below) Other HEENT History: IDIOPATHIC OROFACIAL DYSTONIA Cardiovascular History: Reports: Heart Failure, High Cholesterol, Hypertension, Other (See Below) Other Cardiovascular History: venous insufficiency, atypical chest pain; angina pectoris inspecified. 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 Neurological History: Reports: Brain Injury, Other (See Below) Other Neuro History: TBI Psychiatric History: Reports: Bipolar, Depression Other Psychiatric History: INSOMNIA, INTELLECTUAL DISABILTIES Endocrine/Metabolic History: Reports: Diabetes, Type II, Hypothyroidism Hematologic History: Reports: Anemia, Blood Transfusion(s) Immunologic History: Reports: None Oncologic (Cancer) History: Reports: Leukemia Dermatologic History: Reports: None - Infectious Disease History Infectious Disease History: Reports: MRSA - Past Surgical History Head Surgeries/Procedures: Reports: None HEENT Surgical History: Reports: Cataract Surgery, Oral Surgery Respiratory Surgical History: Reports: None GI Surgical History: Reports: Appendectomy, Cholecystectomy, Colonoscopy, EGD Female Surgical History: Reports: Tubal Ligation Musculoskeletal Surgical History: Reports: Other (See Below) Oncologic Surgical History: Reports: Bone Marrow Aspiration Dermatological Surgical History: Reports: None Social & Family History - Family History Family Medical History: Noncontributory - Tobacco Use Smoking Status *Q: Former Smoker Used Tobacco, but Quit: Yes Month/Year Tobacco Last Used: 1979 - Caffeine Use Caffeine Use: Reports: Coffee Other Caffeine Use: 3 cups of coffee every day, one can of pop every other day. - Recreational Drug Use Recreational Drug Use: No - Living Situation & Occupation Living situation: Reports: , Assisted Living ([place]) Occupation: Disabled ED ROS GENERAL - Review of Systems Review Of Systems: Comprehensive ROS is negative, except as noted in HPI. ED EXAM, GI/ABD - Physical Exam Exam: See Below Exam Limited By: No Limitations General Appearance: Alert, WD/WN, No Apparent Distress Respiratory/Chest: No Respiratory Distress, Lungs Clear, Normal Breath Sounds, No Accessory Muscle Use, Chest Non-Tender Cardiovascular: Normal Peripheral Pulses, Regular Rate, Rhythm, No Edema, No Gallop, No JVD, No Murmur, No Rub GI/Abdominal Exam: Normal Bowel Sounds, Soft, Non-Tender, No Organomegaly, No Distention, No Abnormal Bruit, No Mass, Pelvis Stable Neurological: Alert, Oriented, CN II-XII Intact, Normal Cognition, Normal Gait, Normal Reflexes, No Motor/Sensory Deficits Psychiatric: Normal Affect, Normal Mood Skin Exam: Warm, Dry, Intact, No Rash, Pallor Course - Vital Signs Last Recorded V/S: Last Vital Signs Temp 99.1 F 11/06/19 20:15 Pulse 82 11/06/19 20:15 Resp 18 11/06/19 20:15 BP 139/42 L 11/06/19 20:15 Pulse Ox 100 11/06/19 17:06 - Orders/Labs/Meds Orders: Active Orders 24 hr Category Date Time Status Peripheral IV Care [RC] . DIRECTED Care 11/06/19 17:21 Active RED BLOOD CELLS LP [BBK] Stat Lab 11/06/19 17:30 Results TYPE AND SCREEN [BBK] Stat Lab 11/06/19 17:30 Results Sodium Chloride 0.9% [Normal Saline] 1,000 ml Med 11/06/19 19:00 Active IV ASDIRECTED Sodium Chloride 0.9% [Saline Flush] Med 11/06/19 17:21 Active 10 ml FLUSH ASDIRECTED PRN Peripheral IV Insertion Adult [OM.PC] Stat Oth 11/06/19 17:21 Ordered Transfuse Red Blood Cells [COMM] Routine Oth 11/06/19 19:05 Ordered Medication Orders Sodium Chloride (Normal Saline) 1,000 mls @ 150 mls/hr IV ASDIRECTED CELI Last Admin: 11/06/19 19:20 Dose: 150 mls/hr Sodium Chloride (Saline Flush) 10 ml FLUSH ASDIRECTED PRN PRN Reason: Keep Vein Open Last Admin: 11/06/19 17:30 Dose: 10 ml Labs: Laboratory Tests 11/06/19 11/06/19 11/06/19 Range/Units 17:30 17:30 17:30 WBC 9.02 (3.98-10.04) K/mm3 RBC 2.42 L (3.98-5.22) M/mm3 Hgb 7.5 L (11.2-15.7) gm/dl Hct 22.9 L (34.1-44.9) % MCV 94.6 (79.4-94.8) fl MCH 31.0 (25.6-32.2) pg MCHC 32.8 (32.2-35.5) g/dl RDW Std Deviation 49.1 H (36.4-46.3) fL Plt Count 172 L (182-369) K/mm3 MPV 9.6 (9.4-12.3) fl Neut % (Auto) 60.6 (34.0-71.1) % Lymph % (Auto) 28.0 (19.3-51.7) % [place] % (Auto) 9.9 (4.7-12.5) % Eos % (Auto) 0.9 (0.7-5.8) Baso % (Auto) 0.3 (0.1-1.2) % Neut # (Auto) 5.46 (1.56-6.13) K/mm3 Lymph # (Auto) 2.53 (1.18-3.74) K/mm3 [place] # (Auto) 0.89 H (0.24-0.36) K/mm3 Eos # (Auto) 0.08 (0.04-0.36) K/mm3 Baso # (Auto) 0.03 (0.01-0.08) K/mm3 Manual Slide Review Abnormal smear Sodium 140 (136-145) mEq/L Potassium 3.9 (3.5-5.1) mEq/L Chloride 105 (98-107) mEq/L Carbon Dioxide 23 (21-32) mEq/L Anion Gap 15.9 H (5-15) BUN 73 H (7-18) mg/dL Creatinine 1.4 H (0.55-1.02) mg/dL Est Cr Clr Drug Dosing 29.16 mL/min Estimated GFR (MDRD) 38 (>60) mL/min BUN/Creatinine Ratio 52.1 H (14-18) Glucose 120 H (80-115) mg/dL Calcium 8.6 (8.5-10.1) mg/dL Magnesium (1.8-2.4) mg/dl Total Bilirubin 0.2 (0.2-1.0) mg/dL AST 49 H (15-37) U/L ALT 52 (14-59) U/L Alkaline Phosphatase 96 (46-116) U/L Total Protein 7.0 (6.4-8.2) g/dl Albumin 3.3 L (3.4-5.0) g/dl Globulin 3.7 gm/dL Albumin/Globulin Ratio 0.9 L (1-2) Blood Type A POSITIVE Gel Antibody Screen Negative Crossmatch See Detail 11/06/19 Range/Units 17:30 WBC (3.98-10.04) K/mm3 RBC (3.98-5.22) M/mm3 Hgb (11.2-15.7) gm/dl Hct (34.1-44.9) % MCV (79.4-94.8) fl MCH (25.6-32.2) pg MCHC (32.2-35.5) g/dl RDW Std Deviation (36.4-46.3) fL Plt Count (182-369) K/mm3 MPV (9.4-12.3) fl Neut % (Auto) (34.0-71.1) % Lymph % (Auto) (19.3-51.7) % [place] % (Auto) (4.7-12.5) % Eos % (Auto) (0.7-5.8) Baso % (Auto) (0.1-1.2) % Neut # (Auto) (1.56-6.13) K/mm3 Lymph # (Auto) (1.18-3.74) K/mm3 [place] # (Auto) (0.24-0.36) K/mm3 Eos # (Auto) (0.04-0.36) K/mm3 Baso # (Auto) (0.01-0.08) K/mm3 Manual Slide Review Sodium (136-145) mEq/L Potassium (3.5-5.1) mEq/L Chloride (98-107) mEq/L Carbon Dioxide (21-32) mEq/L Anion Gap (5-15) BUN (7-18) mg/dL Creatinine (0.55-1.02) mg/dL Est Cr Clr Drug Dosing mL/min Estimated GFR (MDRD) (>60) mL/min BUN/Creatinine Ratio (14-18) Glucose (80-115) mg/dL Calcium (8.5-10.1) mg/dL Magnesium 2.5 H (1.8-2.4) mg/dl Total Bilirubin (0.2-1.0) mg/dL AST (15-37) U/L ALT (14-59) U/L Alkaline Phosphatase (46-116) U/L Total Protein (6.4-8.2) g/dl Albumin (3.4-5.0) g/dl Globulin gm/dL Albumin/Globulin Ratio (1-2) Blood Type Gel Antibody Screen Crossmatch Meds: Medications Generic Name Dose Route Start Last Admin Trade Name Freq PRN Reason Stop Dose Admin Sodium Chloride 1,000 mls @ 150 mls/hr 11/06/19 19:00 11/06/19 19:20 Normal Saline IV 150 mls/hr ASDIRECTED CELI Administration Sodium Chloride 10 ml 11/06/19 17:21 11/06/19 17:30 Saline Flush FLUSH 10 ml ASDIRECTED PRN Administration Keep Vein Open Discontinued Medications Generic Name Dose Route Start Last Admin Trade Name Aaron PRN Reason Stop Dose Admin Pantoprazole Sodium 80 mg 11/06/19 18:52 11/06/19 19:21 Protonix Iv IVPUSH 11/06/19 18:53 80 mg BOLUS ONE Administration - Re-Assessments/Exams Free Text/Narrative Re-Assessment/Exam: 11/06/19 18:23 Patient's hemoglobin returned at 7.5. She was 7.1 this morning prior to being transfused. Platelets are low at 172 and a gap is mildly elevated at 15.9, BUN 73, creatinine 1.4. I have ordered 2 units of packed RBCs to be crossmatched. Occult stool was done and that was grossly positive. Stool was dark maroon in color. Will call the hospitalist to inquire on admission for GI bleed. 11/06/19 19:05 Dr. Peters is here to see the patient. She in concerned with pts CLL and recurrent GI bleeds that she would be best served in [place] with where her oncologist is. I will call transfer. 11/06/191999 had no available beds as well as [facility]. Spoke to the patient and her sister and they would like to inquire on transfer to [facility]. I did call and speak with Dr. Fraga, hospitalist at [facility]. He accepted the patient for transfer with a direct admission. Patient will transfer via [facility] fixed wing. Departure - Departure Time of Disposition: 20:00 Disposition: DC/Tfer to Acute Hospital 02 Condition: Fair Clinical Impression: GI bleed Qualifiers: GI bleed type/associated pathology: melena Qualified Code(s): K92.1 - Melena - Discharge Information Referrals: Luís Cespedes MD [Primary Care Provider] - Forms: ED Department Discharge Sepsis Event Note - Evaluation Sepsis Screening Result: No Definite Risk - Focused Exam Vital Signs: Vital Signs Temp Temp Pulse Resp BP Pulse Ox 11/06/19 20:15 99.1 F 82 18 139/42 L 11/06/19 17:06 98.6 F 88 19 134/52 L 100 Date Exam was Performed: 11/06/19 Time Exam was Performed: 22:31 - My Orders Last 24 Hours: My Active Orders 11/06/19 17:21 Peripheral IV Care [RC] . DIRECTED Sodium Chloride 0.9% [Saline Flush] 10 ml FLUSH ASDIRECTED PRN Peripheral IV Insertion Adult [OM.PC] Stat 11/06/19 17:30 RED BLOOD CELLS LP [BBK] Stat TYPE AND SCREEN [BBK] Stat 11/06/19 19:00 Sodium Chloride 0.9% [Normal Saline] 1,000 ml IV ASDIRECTED 11/06/19 19:05 Transfuse Red Blood Cells [COMM] Routine - Assessment/Plan Last 24 Hours: My Active Orders 11/06/19 17:21 Peripheral IV Care [RC] . DIRECTED Sodium Chloride 0.9% [Saline Flush] 10 ml FLUSH ASDIRECTED PRN Peripheral IV Insertion Adult [OM.PC] Stat 11/06/19 17:30 RED BLOOD CELLS LP [BBK] Stat TYPE AND SCREEN [BBK] Stat 11/06/19 19:00 Sodium Chloride 0.9% [Normal Saline] 1,000 ml IV ASDIRECTED 11/06/19 19:05 Transfuse Red Blood Cells [COMM] Routine
[2019-11-06] MEDS ORDERED: Pantoprazole 40 MG Vial IVPUSH ONE (18:52)
[2019-11-06] MEDS ORDERED: Sodium Chloride 0.9% 1,000 ML IV SCH (19:00)
[2019-11-06 22:52] VITALS: BP 137/41; PULSE 81
== END 2019-11-06 20:30 ==
LOC: JD.ED 16:54
DX: K92.1 Melena (principal); E11.22 Type 2 diabetes mellitus with diabetic chronic kidney disease; I13.0 Hypertensive heart and chronic kidney disease with heart failure and stage 1 through stage 4 chronic kidney disease, or unspecified chronic kidney disease; N18.3 Chronic kidney disease, stage 3 (moderate); I50.9 Heart failure, unspecified; K21.9 Gastro-esophageal reflux disease without esophagitis; E78.00 Pure hypercholesterolemia, unspecified; E03.9 Hypothyroidism, unspecified; F32.9 Major depressive disorder, single episode, unspecified; E66.9 Obesity, unspecified; Z68.24 Body mass index [BMI] 24.0-24.9, adult; Z88.6 Allergy status to analgesic agent; Z88.7 Allergy status to serum and vaccine; Z79.899 Other long term (current) drug therapy; Z79.4 Long term (current) use of insulin; Z79.890 Hormone replacement therapy; Z87.891 Personal history of nicotine dependence; S00.12XA Contusion of left eyelid and periocular area, initial encounter; S00.83XA Contusion of other part of head, initial encounter; S60.222A Contusion of left hand, initial encounter; D61.1 Drug-induced aplastic anemia; D61.810 Antineoplastic chemotherapy induced pancytopenia; T45.1X5A Adverse effect of antineoplastic and immunosuppressive drugs, initial encounter; F03.90 Unspecified dementia, unspecified severity, without behavioral disturbance, psychotic disturbance, mood disturbance, and anxiety; W19.XXXA Unspecified fall, initial encounter; Y92.099 Unspecified place in other non-institutional residence as the place of occurrence of the external cause
CPT/HCPCS: 36415; 36430; 70450; 70486; 72125; 80053; 81001; 82962; 83735; 84484; 85007; 85025; 85027; 85379; 85610; 85730; 86850; 86900; 86901; 86922; 93005; 96361; 96374; 99284; 99285; C9113; J7030; P9016; 93010

== ENCOUNTER 2019-12-02 11:32 | Inpatient (IN) | payer MEDICARE, MEDICAID ==
[2019-12-02] MEDS ORDERED: Sodium Chloride 0.9% 10 ML Syringe FLUSH PRN (11:52)
--- NOTE | 2019-12-02 14:07 | EDM.PDOC ---
ED HPI GENERAL MEDICAL PROBLEM - General Chief Complaint: Gastrointestinal Problem Stated Complaint: BLEEDING FROM RECTUM Time Seen by Provider: 12/02/19 11:46 Source of Information: Reports: Patient, Family, Residential Records ([place] ) History Limitations: Reports: No Limitations - History of Present Illness INITIAL COMMENTS - FREE TEXT/NARRATIVE: The patient presents with rectal bleeding. This is a chronic problem but since last night it has been worse. She has a history of leukemia and this rectal bleeding. She is on a chemo pill for it and she sees Dr Dow. She had 4 different endoscopies and no real source for the bleeding was found. The last colonoscopy and EGD was done in [place]. They could not find a GI cause for her bleed. It is felt this is the end stages of her leukemia. She had a transfusion on . Her Hgb was around 7.5. She feels lightheaded and she is pale. Onset: Gradual Duration: Day(s): Severity: Moderate Improves with: Reports: None Worsens with: Reports: None Associated Symptoms: Reports: No Other Symptoms - Related Data Allergies Allergy/AdvReac Type Severity Reaction Status Date / Time aspirin Allergy Bleeding Verified 12/02/19 11:46 Influenza Virus Vaccines AdvReac Anxiety Verified 12/02/19 11:46 Home Meds: Home Meds Acetaminophen 650 mg PO Q8H PRN 08/31/15 [History] Furosemide [Lasix] 40 mg PO BID 08/31/15 [History] Insulin Aspart [Novolog Flexpen] 6 units SUBCUT BIDMEALS 08/31/15 [History] Losartan Potassium [Cozaar] 50 mg PO DAILY 08/31/15 [History] Loxapine Succinate [Loxapine] 25 mg PO QPM 08/31/15 [History] Loxapine Succinate [Loxapine] 50 mg PO BEDTIME 08/31/15 [History] cloNIDine [Catapres] 0.3 mg PO BID 08/31/15 [History] traZODone 100 mg PO BEDTIME 08/31/15 [History] Memantine HCl [Namenda] 5 mg PO DAILY 08/30/17 [History] Nystatin [Nystatin Crm] 1 applic TOP BID PRN 08/30/17 [History] Temazepam 30 mg PO BEDTIME 08/30/17 [History] atorvaSTATin [Lipitor] 10 mg PO DAILY 08/30/17 [History] Carboxymethylcellulose Sodium [Refresh Tears 0.5%] 1 drop EYEBOTH BID 01/19/18 [ History] Ondansetron [Zofran ODT] 4 mg SL Q4HR PRN 01/19/18 [History] Spironolactone [Aldactone] 25 mg PO DAILY 01/19/18 [History] Insulin Degludec [Tresiba] 13 units SQ BEDTIME 01/24/19 [History] Melatonin 5 mg PO BEDTIME 01/24/19 [History] Insulin Aspart [NovoLOG] 2 unit SQ ACDINNER 06/13/19 [History] Iron Polysaccharide Complex [Ferric X-150] 150 mg PO DAILY 06/13/19 [History] Polyethylene Glycol 3350 [Miralax] 17 gm PO DAILY PRN 06/28/19 [History] Metoprolol Succinate [Toprol XL] 25 mg PO DAILY 08/19/19 [History] Dasatinib [Sprycel] 50 mg PO DAILY 11/06/19 [History] Levothyroxine [Synthroid] 88 mcg PO DAILY 11/06/19 [History] Sucralfate [Carafate] 1 gm PO QID 11/06/19 [History] Past Medical History HEENT History: Reports: Other (See Below) Other HEENT History: IDIOPATHIC OROFACIAL DYSTONIA Cardiovascular History: Reports: Heart Failure, High Cholesterol, Hypertension, Other (See Below) Other Cardiovascular History: venous insufficiency, atypical chest pain; angina pectoris inspecified. 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 Neurological History: Reports: Brain Injury, Other (See Below) Other Neuro History: TBI Psychiatric History: Reports: Bipolar, Depression Other Psychiatric History: INSOMNIA, INTELLECTUAL DISABILTIES Endocrine/Metabolic History: Reports: Diabetes, Type II, Hypothyroidism Hematologic History: Reports: Anemia, Blood Transfusion(s) Immunologic History: Reports: None Oncologic (Cancer) History: Reports: Leukemia Dermatologic History: Reports: None - Infectious Disease History Infectious Disease History: Reports: MRSA - Past Surgical History Head Surgeries/Procedures: Reports: None HEENT Surgical History: Reports: Cataract Surgery, Oral Surgery Respiratory Surgical History: Reports: None GI Surgical History: Reports: Appendectomy, Cholecystectomy, Colonoscopy, EGD Female Surgical History: Reports: Tubal Ligation Musculoskeletal Surgical History: Reports: Other (See Below) Oncologic Surgical History: Reports: Bone Marrow Aspiration Dermatological Surgical History: Reports: None Social & Family History - Family History Family Medical History: Noncontributory - Tobacco Use Smoking Status *Q: Former Smoker Used Tobacco, but Quit: Yes Month/Year Tobacco Last Used: 25 years ago - Caffeine Use Caffeine Use: Reports: None Other Caffeine Use: 3 cups of coffee every day, one can of pop every other day. - Recreational Drug Use Recreational Drug Use: No - Living Situation & Occupation Living situation: Reports: , Assisted Living ([place]) Occupation: Disabled ED ROS GENERAL - Review of Systems Review Of Systems: See Below Constitutional: Reports: No Symptoms HEENT: Reports: No Symptoms Respiratory: Reports: No Symptoms Cardiovascular: Reports: No Symptoms Endocrine: Reports: No Symptoms GI/Abdominal: Reports: Bloody Stool. Denies: Abdominal Pain, Nausea, Vomiting : Reports: No Symptoms Musculoskeletal: Reports: No Symptoms ED EXAM, GI/ABD - Physical Exam Exam: See Below Exam Limited By: No Limitations General Appearance: Alert, No Apparent Distress Ears: Normal External Exam Nose: Normal Inspection Head: Atraumatic, Normocephalic Neck: Normal Inspection Respiratory/Chest: No Respiratory Distress, Lungs Clear, Normal Breath Sounds Cardiovascular: Regular Rate, Rhythm, No Edema, No Murmur GI/Abdominal Exam: Soft, Non-Tender, No Organomegaly, No Mass Skin Exam: Pallor Course - Vital Signs Last Recorded V/S: Last Vital Signs Temp 97.6 F 12/02/19 14:50 Pulse 80 12/02/19 14:50 Resp 12 12/02/19 14:50 BP 132/32 L 12/02/19 14:50 Pulse Ox 100 12/02/19 14:50 - Orders/Labs/Meds Orders: Active Orders 24 hr Category Date Time Status Peripheral IV Care [RC] . DIRECTED Care 12/02/19 11:53 Active RED BLOOD CELLS LP [BBK] Stat Lab 12/02/19 12:00 Results TYPE AND SCREEN [BBK] Stat Lab 12/02/19 12:00 Results Sodium Chloride 0.9% [Saline Flush] Med 12/02/19 11:52 Active 10 ml FLUSH ASDIRECTED PRN Peripheral IV Insertion Adult [OM.PC] Stat Ot 12/02/19 11:52 Ordered Transfuse Red Blood Cells [COMM] Stat [facility] 12/02/19 13:56 Ordered Medication Orders Sodium Chloride (Saline Flush) 10 ml FLUSH ASDIRECTED PRN PRN Reason: Keep Vein Open Last Admin: 12/02/19 12:00 Dose: 10 ml Labs: Laboratory Tests 12/02/19 12/02/19 12/02/19 Range/Units 12:00 12:00 12:00 WBC 8.51 (3.98-10.04) K/mm3 RBC 1.79 L (3.98-5.22) M/mm3 Hgb 5.5 L* D (11.2-15.7) gm/dl Hct 17.9 L (34.1-44.9) % MCV 100.0 H D (79.4-94.8) fl MCH 30.7 (25.6-32.2) pg MCHC 30.7 L (32.2-35.5) g/dl RDW Std Deviation 54.1 H (36.4-46.3) fL Plt Count 176 L (182-369) K/mm3 MPV 8.4 L (9.4-12.3) fl Neut % (Auto) 51.9 (34.0-71.1) % Lymph % (Auto) 34.5 (19.3-51.7) % [place] % (Auto) 11.2 (4.7-12.5) % Eos % (Auto) 1.8 (0.7-5.8) Baso % (Auto) 0.4 (0.1-1.2) % Neut # (Auto) 4.42 (1.56-6.13) K/mm3 Lymph # (Auto) 2.94 (1.18-3.74) K/mm3 [place] # (Auto) 0.95 H (0.24-0.36) K/mm3 Eos # (Auto) 0.15 (0.04-0.36) K/mm3 Baso # (Auto) 0.03 (0.01-0.08) K/mm3 Manual Slide Review Abnormal smear Sodium 139 (136-145) mEq/L Potassium 3.8 (3.5-5.1) mEq/L Chloride 105 (98-107) mEq/L Carbon Dioxide 24 (21-32) mEq/L Anion Gap 13.8 (5-15) BUN 61 H (7-18) mg/dL Creatinine 1.3 H (0.55-1.02) mg/dL Est Cr Clr Drug Dosing 31.40 mL/min Estimated GFR (MDRD) 41 (>60) mL/min BUN/Creatinine Ratio 46.9 H (14-18) Glucose 80 (80-115) mg/dL Calcium 8.0 L (8.5-10.1) mg/dL Total Bilirubin 0.2 (0.2-1.0) mg/dL AST 34 (15-37) U/L ALT 38 (14-59) U/L Alkaline Phosphatase 82 (46-116) U/L Total Protein 5.8 L (6.4-8.2) g/dl Albumin 2.6 L (3.4-5.0) g/dl Globulin 3.2 gm/dL Albumin/Globulin Ratio 0.8 L (1-2) Blood Type A POSITIVE Gel Antibody Screen Negative Crossmatch See Detail Meds: Medications Generic Name Dose Route Start Last Admin Trade Name Freq PRN Reason Stop Dose Admin Sodium Chloride 10 ml 12/02/19 11:52 12/02/19 12:00 Saline Flush FLUSH 10 ml ASDIRECTED PRN Administration Keep Vein Open Discontinued Medications Generic Name Dose Route Start Last Admin Trade Name Freq PRN Reason Stop Dose Admin Sodium Chloride Confirm 12/02/19 14:28 Normal Saline Administered 12/02/19 14:29 Dose 500 mls @ as directed .ROUTE .STK-MED ONE - Re-Assessments/Exams Free Text/Narrative Re-Assessment/Exam: 12/02/19 15:02 I ordered an IV saline lock, labs and 2 units of PRBCs. Her Hgb was low at 5.5. Her creatinine is elevated at 1.3. I talked to Dr Arteaga and he agreed to the admission. The patient and her family is thinking of hospice. Departure - Departure Time of Disposition: 15:05 Disposition: Admitted As Inpatient 66 Condition: Serious Clinical Impression: GI bleed Qualifiers: GI bleed type/associated pathology: melena Qualified Code(s): K92.1 - Melena Anemia Qualifiers: 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 type: pancytopenia , antineoplastic chemotherapy-induced Qualified Code(s): D61.810 - Antineoplastic chemotherapy induced pancytopenia; T45.1X5A - Adverse effect of antineoplastic and immunosuppressive drugs, initial encounter Leukemia Qualifiers: Leukemia type: unspecified Leukemia Active/Remission status: relapsed Qualified Code(s): C95.92 - Leukemia, unspecified, in relapse - Discharge Information Referrals: Luís Cespedes MD [Primary Care Provider] - Forms: ED Department Discharge Sepsis Event Note - Evaluation Sepsis Screening Result: No Definite Risk - Focused Exam Vital Signs: Vital Signs Temp Temp Pulse Resp BP Pulse Ox 12/02/19 14:50 97.6 F 80 12 132/32 L 100 12/02/19 11:43 97.7 F 80 16 165/46 H 96 Date Exam was Performed: 12/02/19 Time Exam was Performed: 15:00 - My Orders Last 24 Hours: My Active Orders 12/02/19 11:52 Sodium Chloride 0.9% [Saline Flush] 10 ml FLUSH ASDIRECTED PRN Peripheral IV Insertion Adult [OM.PC] Stat 12/02/19 11:53 Peripheral IV Care [RC] . DIRECTED 12/02/19 12:00 RED BLOOD CELLS LP [BBK] Stat TYPE AND SCREEN [BBK] Stat 12/02/19 13:56 Transfuse Red Blood Cells [COMM] Stat - Assessment/Plan Last 24 Hours: My Active Orders 12/02/19 11:52 Sodium Chloride 0.9% [Saline Flush] 10 ml FLUSH ASDIRECTED PRN Peripheral IV Insertion Adult [OM.PC] Stat 12/02/19 11:53 Peripheral IV Care [RC] . DIRECTED 12/02/19 12:00 RED BLOOD CELLS LP [BBK] Stat TYPE AND SCREEN [BBK] Stat 12/02/19 13:56 Transfuse Red Blood Cells [COMM] Stat
[2019-12-02] MEDS ORDERED: Sodium Chloride 0.9% 500 ML IV SCH (14:25)
[2019-12-02] MEDS ORDERED: Sodium Chloride 0.9% 500 ML ONE (14:28)
[2019-12-02] MEDS ORDERED: Acetaminophen 325 MG Tab PO PRN (17:48)
[2019-12-02] MEDS ORDERED: Ondansetron 4 MG/2 ML SDV IV PRN (17:48)
[2019-12-02] MEDS ORDERED: Nystatin Crm 30 GM Tube TOP PRN (17:50)
[2019-12-02] MEDS ORDERED: LOXAPINE SUCCINATE 25 MG PO SCH (18:00)
--- NOTE | 2019-12-02 18:04 | PCM.HP.2 ---
H&P History of Present Illness - General Date of Service: 12/02/19 Admit Problem/Dx: Admission Diagnosis/Problem Admission Diagnosis/Problem GI bleed requiring more than 4 units of blood in 24 hours, ICU, or surgery - History of Present Illness Initial Comments - Free Text/Narative: 64-year-old developmentally delayed female with a history of chronic myelogenous leukemia presented to the emergency department after having a large amount of hematochezia. Patient states that she had 512 bowls fall. Apparently she was recently in [place] where she had a transfusion and endoscopy. She was seen here last year with similar complaints. She has had a total of 4 different endoscopes and no cause for her GI bleeding has been definitively found. It is now felt this is likely the end stages of her leukemia. Dr. Dow is her oncologist. When she was transfused last her hemoglobin was around 7.5. Now her hemoglobin in the emergency department was 5.5. Now she feels dizzy, lightheaded, and is pale. She was accompanied by her sister today both in the emergency room and on admission. They are in agreement that she would like to receive 2 units of packed red blood cells, but then she wants to be comfort measures. - Related Data Allergies/Adverse Reactions: Allergies Allergy/AdvReac Type Severity Reaction Status Date / Time aspirin Allergy Bleeding Verified 12/02/19 11:46 Influenza Virus Vaccines AdvReac Anxiety Verified 12/02/19 11:46 Home Medications: Home Meds RX: Acetaminophen 650 mg PO Q8H PRN 08/31/15 [History] RX: Furosemide [Lasix] 40 mg PO BID 08/31/15 [History] RX: Insulin Aspart [Novolog Flexpen] 6 units SUBCUT BIDMEALS 08/31/15 [History] RX: Losartan Potassium [Cozaar] 50 mg PO DAILY 08/31/15 [History] RX: Loxapine Succinate [Loxapine] 25 mg PO QPM 08/31/15 [History] RX: Loxapine Succinate [Loxapine] 50 mg PO BEDTIME 08/31/15 [History] RX: cloNIDine [Catapres] 0.3 mg PO BID 08/31/15 [History] RX: traZODone 100 mg PO BEDTIME 08/31/15 [History] RX: Memantine HCl [Namenda] 5 mg PO DAILY 08/30/17 [History] RX: Nystatin [Nystatin Crm] 1 applic TOP BID PRN 08/30/17 [History] RX: Temazepam 30 mg PO BEDTIME 08/30/17 [History] RX: atorvaSTATin [Lipitor] 10 mg PO DAILY 08/30/17 [History] RX: Carboxymethylcellulose Sodium [Refresh Tears 0.5%] 1 drop EYEBOTH BID [History] RX: Ondansetron [Zofran ODT] 4 mg SL Q4HR PRN 01/19/18 [History] RX: Spironolactone [Aldactone] 25 mg PO DAILY 01/19/18 [History] RX: Insulin Degludec [Tresiba] 13 units SQ BEDTIME 01/24/19 [History] RX: Melatonin 5 mg PO BEDTIME 01/24/19 [History] RX: Insulin Aspart [NovoLOG] 2 unit SQ ACDINNER 06/13/19 [History] RX: Iron Polysaccharide Complex [Ferric X-150] 150 mg PO DAILY 06/13/19 [History ] Polyethylene Glycol 3350 [Miralax] 17 gm PO DAILY PRN 06/28/19 [History] Metoprolol Succinate [Toprol XL] 25 mg PO DAILY 08/19/19 [History] Dasatinib [Sprycel] 50 mg PO DAILY 11/06/19 [History] Levothyroxine [Synthroid] 88 mcg PO DAILY 11/06/19 [History] Sucralfate [Carafate] 1 gm PO QID 11/06/19 [History] Past Medical History HEENT History: Reports: Other (See Below) Other HEENT History: IDIOPATHIC OROFACIAL DYSTONIA Cardiovascular History: Reports: Heart Failure, High Cholesterol, Hypertension, Other (See Below) Other Cardiovascular History: venous insufficiency, atypical chest pain; angina pectoris inspecified. Respiratory History: Reports: None Gastrointestinal History: Reports: GERD Other Gastrointestinal History: obesity, ascites Genitourinary History: Reports: Chronic Renal Insuffiency Other Genitourinary History: RIGHT RENAL ARTERY STENOSIS, CKD III ECOTHERAPIST History: Reports: None Musculoskeletal History: Reports: Fracture Other Musculoskeletal History: fx two bones in foot 2.5yrs ago. Neurological History: Reports: Brain Injury, Other (See Below) Other Neuro History: TBI Psychiatric History: Reports: Bipolar, Depression Other Psychiatric History: INSOMNIA, INTELLECTUAL DISABILTIES Endocrine/Metabolic History: Reports: Diabetes, Type II, Hypothyroidism Hematologic History: Reports: Anemia, Blood Transfusion(s) Immunologic History: Reports: None Oncologic (Cancer) History: Reports: Leukemia Dermatologic History: Reports: None - Infectious Disease History Infectious Disease History: Reports: MRSA - Past Surgical History Head Surgeries/Procedures: Reports: None HEENT Surgical History: Reports: Cataract Surgery, Oral Surgery Respiratory Surgical History: Reports: None GI Surgical History: Reports: Appendectomy, Cholecystectomy, Colonoscopy, EGD Female Surgical History: Reports: Tubal Ligation Musculoskeletal Surgical History: Reports: Other (See Below) Oncologic Surgical History: Reports: Bone Marrow Aspiration Dermatological Surgical History: Reports: None Social & Family History - Family History Family Medical History: Noncontributory - Tobacco Use Smoking Status *Q: Former Smoker Used Tobacco, but Quit: Yes Month/Year Tobacco Last Used: 25 years ago - Caffeine Use Caffeine Use: Reports: None Other Caffeine Use: 3 cups of coffee every day, one can of pop every other day. - Recreational Drug Use Recreational Drug Use: No - Living Situation & Occupation Living situation: Reports: , Assisted Living ([place]) Occupation: Disabled H&P Review of Systems - Review of Systems: Review Of Systems: Comprehensive ROS is negative, except as noted in HPI. Exam - Exam Exam: See Below - Vital Signs Vital Signs: Last Vital Signs Temp 99.1 F 12/02/19 17:00 Pulse 86 12/02/19 17:00 Resp 15 12/02/19 17:00 BP 149/36 H 12/02/19 17:00 Pulse Ox 100 12/02/19 17:00 Weight: 129 lb - Exam General: Alert, Oriented, 4 HEENT: Conjunctiva Clear, Hearing Intact, Mucosa Moist & [place] Neck: Supple, Trachea Midline, 2 Lungs: Clear to Auscultation, Normal Respiratory Effort Cardiovascular: Regular Rate, Regular Rhythm GI/Abdominal Exam: Normal Bowel Sounds, Soft, Non-Tender, No Organomegaly, No Distention, No Abnormal Bruit, No Mass, Pelvis Stable Extremities: Normal Inspection, Normal Range of Motion, Non-Tender, No Pedal Edema, Normal Capillary Refill Skin: Warm, Dry, Intact Neurological: Cranial Nerves Intact Neuro Extensive - Mental Status: Alert, Oriented x3, Normal Mood/Affect, Normal Cognition Neuro Extensive - Motor, Sensory, Reflexes: CN II-XII Intact Psychiatric: Alert, Normal Affect, Normal Mood - Patient Data Lab Results Last 24 hrs: Laboratory Results - last 24 hr 12/02/19 12/02/19 12/02/19 Range/Units 12:00 12:00 12:00 WBC 8.51 (3.98-10.04) K/mm3 RBC 1.79 L (3.98-5.22) M/mm3 Hgb 5.5 L* D (11.2-15.7) gm/dl Hct 17.9 L (34.1-44.9) % MCV 100.0 H D (79.4-94.8) fl MCH 30.7 (25.6-32.2) pg MCHC 30.7 L (32.2-35.5) g/dl RDW Std Deviation 54.1 H (36.4-46.3) fL Plt Count 176 L (182-369) K/mm3 MPV 8.4 L (9.4-12.3) fl Neut % (Auto) 51.9 (34.0-71.1) % Lymph % (Auto) 34.5 (19.3-51.7) % [place] % (Auto) 11.2 (4.7-12.5) % Eos % (Auto) 1.8 (0.7-5.8) Baso % (Auto) 0.4 (0.1-1.2) % Neut # (Auto) 4.42 (1.56-6.13) K/mm3 Lymph # (Auto) 2.94 (1.18-3.74) K/mm3 [place] # (Auto) 0.95 H (0.24-0.36) K/mm3 Eos # (Auto) 0.15 (0.04-0.36) K/mm3 Baso # (Auto) 0.03 (0.01-0.08) K/mm3 Manual Slide Review Abnormal smear Sodium 139 (136-145) mEq/L Potassium 3.8 (3.5-5.1) mEq/L Chloride 105 (98-107) mEq/L Carbon Dioxide 24 (21-32) mEq/L Anion Gap 13.8 (5-15) BUN 61 H (7-18) mg/dL Creatinine 1.3 H (0.55-1.02) mg/dL Est Cr Clr Drug Dosing 31.40 mL/min Estimated GFR (MDRD) 41 (>60) mL/min BUN/Creatinine Ratio 46.9 H (14-18) Glucose 80 (80-115) mg/dL Calcium 8.0 L (8.5-10.1) mg/dL Total Bilirubin 0.2 (0.2-1.0) mg/dL AST 34 (15-37) U/L ALT 38 (14-59) U/L Alkaline Phosphatase 82 (46-116) U/L Total Protein 5.8 L (6.4-8.2) g/dl Albumin 2.6 L (3.4-5.0) g/dl Globulin 3.2 gm/dL Albumin/Globulin Ratio 0.8 L (1-2) Blood Type A POSITIVE Gel Antibody Screen Negative Crossmatch See Detail Result Diagrams: 12/02/19 12:00 12/02/19 12:00 Sepsis Event Note - Evaluation Sepsis Screening Result: No Definite Risk - Focused Exam Vital Signs: Vital Signs Temp Temp Pulse Resp BP Pulse Ox 12/02/19 17:00 99.1 F 86 15 149/36 H 100 12/02/19 16:30 99.2 F 86 15 146/32 H 100 12/02/19 16:19 98.8 F 84 14 141/28 H 100 12/02/19 15:05 99.1 F 80 14 134/42 L 100 12/02/19 14:50 97.6 F 80 12 132/32 L 100 12/02/19 11:43 97.7 F 80 16 165/46 H 96 Date Exam was Performed: 12/02/19 Time Exam was Performed: 20:10 Problem List Initiated/Reviewed/Updated: Yes Orders Last 24hrs: Active Orders 24 hr Category Date Time Status Admission Status [Patient Status] [ADT] Routine ADT 12/02/19 16:54 Active Oxygen Therapy [RC] PRN Care 12/02/19 17:48 Active Peripheral IV Care [RC] . DIRECTED Care 12/02/19 11:53 Active Up With Assistance [RC] ASDIRECTED Care 12/02/19 17:48 Active VTE/DVT Education [RC] PER UNIT ROUTINE Care 12/02/19 17:48 Active Vital Signs [RC] Q4H Care 12/02/19 17:48 Active Regular Diet [DIET] Diet 12/02/19 Dinner Active Acetaminophen [Tylenol] Med 12/02/19 17:48 Active 650 mg PO Q4H PRN Furosemide [Lasix] Med 12/03/19 06:00 Active 40 mg PO BIDDIURETIC Insulin Aspart Med 12/03/19 16:00 Ordered 2 unit SQ ACDINNER Insulin Aspart Med 12/03/19 07:00 Ordered 6 units SUBCUT BIDMEALS Insulin Degludec [Tresiba] Med 12/02/19 21:00 Ordered 13 units SQ BEDTIME Levothyroxine [Synthroid] Med 12/03/19 06:00 Active 88 mcg PO DAILY@0600 Losartan [Cozaar] Med 12/03/19 09:00 Active 50 mg PO DAILY Loxapine Succinate [Loxapine] Med 12/02/19 18:00 Ordered 25 mg PO QPM Loxapine Succinate [Loxapine] Med 12/02/19 21:00 Ordered 50 mg PO BEDTIME Melatonin [Melatonin] Med 12/02/19 21:00 Ordered 5 mg PO BEDTIME Metoprolol Succinate [Toprol XL] Med 12/03/19 09:00 Active 25 mg PO DAILY Nystatin Med 12/02/19 17:50 Ordered 1 applic TOP BID PRN Ondansetron [Zofran] Med 12/02/19 17:48 Active 4 mg IV Q4H PRN Sodium Chloride 0.9% [Saline Flush] Med 12/02/19 11:52 Active 10 ml FLUSH ASDIRECTED PRN Spironolactone [Aldactone] Med 12/03/19 09:00 Active 25 mg PO DAILY Sucralfate [Carafate] Med 12/02/19 21:00 Active 1 gm PO QID Temazepam [Restoril] Med 12/02/19 21:00 Active 30 mg PO BEDTIME cloNIDine [Catapres] Med 12/02/19 21:00 Ordered 0.3 mg PO BID traZODone Med 12/02/19 21:00 Active 100 mg PO BEDTIME Peripheral IV Insertion Adult [OM.PC] Stat Oth 12/02/19 11:52 Ordered Transfuse Red Blood Cells [COMM] Stat Oth 12/02/19 13:56 Ordered Resuscitation Status Routine Resus Stat 12/02/19 17:48 Ordered Medication Orders Acetaminophen (Tylenol) 650 mg PO Q4H PRN PRN Reason: Pain (Mild 1-3)/fever Furosemide (Lasix) 40 mg PO BIDDIURETIC [facility] Levothyroxine Sodium (Synthroid) 88 mcg PO DAILY@0600 [facility] Losartan Potassium (Cozaar) 50 mg PO DAILY [facility] Metoprolol Succinate (Toprol Xl) 25 mg PO DAILY [facility] Non-Formulary Medication (Clonidine [Catapres]) 0.3 mg PO BID [facility] Non-Formulary Medication (Insulin Aspart) 2 unit SQ ACDINNER [facility] Non-Formulary Medication (Insulin Aspart) 6 units SUBCUT BIDMEALS [facility] Non-Formulary Medication (Insulin Degludec [Tresiba]) 13 units SQ BEDTIME [facility] Non-Formulary Medication (Loxapine Succinate [Loxapine]) 25 mg PO QPM [facility] Non-Formulary Medication (Loxapine Succinate [Loxapine]) 50 mg PO BEDTIME [facility] Non-Formulary Medication (Melatonin [Melatonin]) 5 mg PO BEDTIME [facility] Non-Formulary Medication (Nystatin) 1 applic TOP BID PRN PRN Reason: Itching Ondansetron HCl (Zofran) 4 mg IV Q4H PRN PRN Reason: Nausea/Vomiting Sodium Chloride (Saline Flush) 10 ml FLUSH ASDIRECTED PRN PRN Reason: Keep Vein Open Last Admin: 12/02/19 12:00 Dose: 10 ml Spironolactone (Aldactone) 25 mg PO DAILY [facility] Sucralfate (Carafate) 1 gm PO QID [facility] Temazepam (Restoril) 30 mg PO BEDTIME [facility] Trazodone HCl (Trazodone) 100 mg PO BEDTIME [facility] Assessment/Plan Comment:: Assessment * 64-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 She has been getting multiple transfusions and has had a complete work-up for her multiple bouts of gastrointestinal bleeding. They are in agreement that there is nothing specifically more that can be done. Francoise understand that she is at end-stage of her leukemia and that this is fatal. They asked that we keep her comfortable and trend her hemoglobin over the next few days. They are in agreement with Ativan as needed for anxiety and to continue her sleeping medications for her insomnia. Patient will therefore be a DNR/DNI comfort measures. - Mortality Measure Prognosis:: Poor
[2019-12-02] MEDS: traZODone 50 MG Tab PO SCH (20:45)
[2019-12-02] MEDS: cloNIDine 0.1 MG Tab PO SCH (20:45)
[2019-12-02] MEDS: Temazepam 30 MG Cap PO SCH (20:46)
[2019-12-02] MEDS: Melatonin 3 MG Tab PO SCH (20:46)
[2019-12-02] MEDS: Sucralfate 1 GM Tab PO SCH (20:46)
[2019-12-02] MEDS ORDERED: LOXAPINE 25 MG PO SCH (21:00)
[2019-12-02] MEDS ORDERED: Non-Formulary Medication 1 Each (Melatonin [Melatonin] 5 MG) PO SCH (21:00)
[2019-12-02] MEDS: Insulin Glarg,Human.Rec.Analog 100 Unit/ML SUBCUT SCH (21:07)
[2019-12-02] MEDS: Insulin Lispro 100 Units/ML 3 ML Vial SUBCUT SCH (23:09)
[2019-12-03] MEDS: Furosemide 40 MG Tab PO SCH ×2 (06:10→13:10)
[2019-12-03] MEDS: Levothyroxine 88 MCG Tab PO SCH (06:10)
[2019-12-03] MEDS: Insulin Lispro 100 Units/ML 3 ML Vial SUBCUT SCH ×5 (06:54→16:19)
[2019-12-03] MEDS: cloNIDine 0.1 MG Tab PO SCH ×2 (09:42→20:41)
[2019-12-03] MEDS: Spironolactone 25 MG Tab PO SCH (09:43)
[2019-12-03] MEDS: Sucralfate 1 GM Tab PO SCH ×4 (09:43→20:41)
[2019-12-03] MEDS: Losartan 100 MG Tab PO SCH (09:43)
[2019-12-03] MEDS: Metoprolol Succinate 25 MG Tab.ER PO SCH (09:44)
[2019-12-03] MEDS ORDERED: DASATINIB 50 MG PO SCH (12:00)
--- NOTE | 2019-12-03 12:28 | PCM.PN ---
- General Info Date of Service: 12/03/19 Admission Dx/Problem (Free Text): Admission Diagnosis/Problem Admission Diagnosis/Problem GI bleed requiring more than 4 units of blood in 24 hours, ICU, or surgery Subjective Update: Patient states that she is feeling well. She did have a couple episodes of black stools overnight. Functional Status: Reports: Pain Controlled - Review of Systems General: Reports: No Symptoms HEENT: Reports: No Symptoms Pulmonary: Reports: No Symptoms Cardiovascular: Reports: No Symptoms Gastrointestinal: Reports: Melena Genitourinary: Reports: No Symptoms Musculoskeletal: Reports: No Symptoms - Patient Data Vitals - Most Recent: Last Vital Signs Temp 98.1 F 12/03/19 07:42 Pulse 73 12/03/19 09:44 Resp 12 12/03/19 07:42 BP 153/84 H 12/03/19 09:44 Pulse Ox 100 12/03/19 07:42 Weight - Most Recent: 135 lb 9.6 oz I&O - Last 24 Hours: Intake & Output 12/02/19 12/03/19 12/03/19 22:59 06:59 14:59 Intake Total 480 800 360 Output Total 700 Balance 480 100 360 Lab Results Last 24 Hours: Laboratory Results - last 24 hr 12/02/19 12/02/19 12/02/19 Range/Units 12:00 12:00 12:00 Hgb (11.2-15.7) gm/dl Manual Slide Review Abnormal smear Sodium 139 (136-145) mEq/L Potassium 3.8 (3.5-5.1) mEq/L Chloride 105 (98-107) mEq/L Carbon Dioxide 24 (21-32) mEq/L Anion Gap 13.8 (5-15) BUN 61 H (7-18) mg/dL Creatinine 1.3 H (0.55-1.02) mg/dL Est Cr Clr Drug Dosing 31.40 mL/min Estimated GFR (MDRD) 41 (>60) mL/min BUN/Creatinine Ratio 46.9 H (14-18) Glucose 80 (80-115) mg/dL POC Glucose (80-115) mg/dL Calcium 8.0 L (8.5-10.1) mg/dL Total Bilirubin 0.2 (0.2-1.0) mg/dL AST 34 (15-37) U/L ALT 38 (14-59) U/L Alkaline Phosphatase 82 (46-116) U/L Total Protein 5.8 L (6.4-8.2) g/dl Albumin 2.6 L (3.4-5.0) g/dl Globulin 3.2 gm/dL Albumin/Globulin Ratio 0.8 L (1-2) Blood Type A POSITIVE Gel Antibody Screen Negative Crossmatch See Detail 12/02/19 12/03/19 12/03/19 Range/Units 21:04 06:52 09:35 Hgb 7.7 L D (11.2-15.7) gm/dl Manual Slide Review Sodium (136-145) mEq/L Potassium (3.5-5.1) mEq/L Chloride (98-107) mEq/L Carbon Dioxide (21-32) mEq/L Anion Gap (5-15) BUN (7-18) mg/dL Creatinine (0.55-1.02) mg/dL Est Cr Clr Drug Dosing mL/min Estimated GFR (MDRD) (>60) mL/min BUN/Creatinine Ratio (14-18) Glucose (80-115) mg/dL POC Glucose 99 122 H (80-115) mg/dL Calcium (8.5-10.1) mg/dL Total Bilirubin (0.2-1.0) mg/dL AST (15-37) U/L ALT (14-59) U/L Alkaline Phosphatase (46-116) U/L Total Protein (6.4-8.2) g/dl Albumin (3.4-5.0) g/dl Globulin gm/dL Albumin/Globulin Ratio (1-2) Blood Type Gel Antibody Screen Crossmatch 12/03/19 Range/Units 11:39 Hgb (11.2-15.7) gm/dl Manual Slide Review Sodium (136-145) mEq/L Potassium (3.5-5.1) mEq/L Chloride (98-107) mEq/L Carbon Dioxide (21-32) mEq/L Anion Gap (5-15) BUN (7-18) mg/dL Creatinine (0.55-1.02) mg/dL Est Cr Clr Drug Dosing mL/min Estimated GFR (MDRD) (>60) mL/min BUN/Creatinine Ratio (14-18) Glucose (80-115) mg/dL POC Glucose 115 (80-115) mg/dL Calcium (8.5-10.1) mg/dL Total Bilirubin (0.2-1.0) mg/dL AST (15-37) U/L ALT (14-59) U/L Alkaline Phosphatase (46-116) U/L Total Protein (6.4-8.2) g/dl Albumin (3.4-5.0) g/dl Globulin gm/dL Albumin/Globulin Ratio (1-2) Blood Type Gel Antibody Screen Crossmatch Med Orders - Current: Current Medications Acetaminophen (Tylenol) 650 mg PO Q4H PRN PRN Reason: Pain (Mild 1-3)/fever Clonidine HCl (Catapres) 0.3 mg PO BID [facility] Last Admin: 12/03/19 09:42 Dose: 0.3 mg Furosemide (Lasix) 40 mg PO BIDDIURETIC [facility] Last Admin: 12/03/19 06:10 Dose: 40 mg Sodium Chloride (Normal Saline) 500 mls @ 25 mls/hr IV ASDIRECTED [facility] Insulin Glargine (Lantus) 13 unit SUBCUT BEDTIME [facility] Last Admin: 12/02/19 21:07 Dose: 13 units Insulin Human Lispro (Humalog) 6 unit SUBCUT 0700,1100 [facility] Last Admin: 12/03/19 11:52 Dose: 6 units Insulin Human Lispro (Humalog) 0 unit SUBCUT QIDACANDBED [facility]; Protocol Last Admin: 12/03/19 11:43 Dose: Not Given Insulin Human Lispro (Humalog) 2 unit SUBCUT 1600 [facility] Levothyroxine Sodium (Synthroid) 88 mcg PO DAILY@0600 [facility] Last Admin: 12/03/19 06:10 Dose: 88 mcg Losartan Potassium (Cozaar) 50 mg PO DAILY [facility] Last Admin: 12/03/19 09:43 Dose: 50 mg Melatonin (Melatonin) 6 mg PO BEDTIME [facility] Last Admin: 12/02/19 20:46 Dose: 6 mg Metoprolol Succinate (Toprol Xl) 25 mg PO DAILY [facility] Last Admin: 12/03/19 09:44 Dose: 25 mg Non-Formulary Medication (Dasatinib [Sprycel]) 50 mg PO DAILY [facility] Nystatin (Nystatin Crm) 0 gm TOP BID PRN PRN Reason: Itching Ondansetron HCl (Zofran) 4 mg IV Q4H PRN PRN Reason: Nausea/Vomiting Loxapine Succinate [ (Loxapine] 25 Mg) 0 each PO QPM [facility] Loxapine 25 Mg (Capsules*Pt Own Med*) 0 each PO BEDTIME [facility] Last Admin: 12/02/19 20:47 Dose: 50 each Sodium Chloride (Saline Flush) 10 ml FLUSH ASDIRECTED PRN PRN Reason: Keep Vein Open Last Admin: 12/02/19 12:00 Dose: 10 ml Spironolactone (Aldactone) 25 mg PO DAILY [facility] Last Admin: 12/03/19 09:43 Dose: 25 mg Sucralfate (Carafate) 1 gm PO QID [facility] Last Admin: 12/03/19 09:43 Dose: 1 gm Temazepam (Restoril) 30 mg PO BEDTIME [facility] Last Admin: 12/02/19 20:46 Dose: 30 mg Trazodone HCl (Trazodone) 100 mg PO BEDTIME [facility] Last Admin: 12/02/19 20:45 Dose: 100 mg Discontinued Medications Sodium Chloride (Normal Saline) Confirm Administered Dose 500 mls @ as directed .ROUTE .STK-MED ONE Stop: 12/02/19 14:29 Non-Formulary Medication (Insulin Aspart) 2 unit SQ ACDINNER [facility] Non-Formulary Medication (Melatonin [Melatonin]) 5 mg PO BEDTIME [facility] - Exam Quality Assessment: No: Supplemental Oxygen General: Alert, Oriented HEENT: Pupils Equal, Mucous Membr. Moist/[place] Neck: Supple Lungs: Clear to Auscultation, Normal Respiratory Effort Cardiovascular: Regular Rate, Regular Rhythm GI/Abdominal Exam: Normal Bowel Sounds, Soft, Non-Tender, No Distention Extremities: Normal Inspection, Normal Range of Motion, Non-Tender, No Pedal Edema, Normal Capillary Refill Skin: Warm, Dry, Intact Psy/Mental Status: Alert, Normal Affect, Normal Mood Sepsis Event Note - Evaluation Sepsis Screening Result: No Definite Risk - Focused Exam Vital Signs: Vital Signs Temp Pulse Resp BP Pulse Ox 12/03/19 09:44 73 153/84 H 12/03/19 09:43 153/84 H 12/03/19 09:42 153/84 H 12/03/19 07:42 98.1 F 73 12 153/84 H 100 12/03/19 02:53 98.8 F 84 16 142/43 H 98 Date Exam was Performed: 12/03/19 Time Exam was Performed: 12:24 - Problem List Review Problem List Initiated/Reviewed/Updated: Yes - My Orders Last 24 Hours: My Active Orders 12/02/19 17:48 Oxygen Therapy [RC] PRN Up With Assistance [RC] ASDIRECTED VTE/DVT Education [RC] DAILY Vital Signs [RC] Q4HR Acetaminophen [Tylenol] 650 mg PO Q4H PRN Ondansetron [Zofran] 4 mg IV Q4H PRN Resuscitation Status Routine 12/02/19 17:50 Nystatin [Nystatin Crm] 0 gm TOP BID PRN 12/02/19 18:00 Patient's Own Medication [Ptom] 0 each PO QPM 12/02/19 21:00 Insulin Glarg,Human.Rec.Analog [LantUS] 13 unit SUBCUT BEDTIME Melatonin 6 mg PO BEDTIME Patient's Own Medication [Ptom] 0 each PO BEDTIME Sucralfate [Carafate] 1 gm PO QID Temazepam [Restoril] 30 mg PO BEDTIME cloNIDine [Catapres] 0.3 mg PO BID traZODone 100 mg PO BEDTIME 12/02/19 21:30 Blood Glucose Check, Bedside [RC] QIDACANDBED 12/02/19 22:00 Insulin Lispro [HumaLOG] See Protocol SUBCUT QIDACANDBED 12/02/19 Dinner Regular Diet [DIET] 12/03/19 06:00 Furosemide [Lasix] 40 mg PO BIDDIURETIC Levothyroxine [Synthroid] 88 mcg PO DAILY@0600 12/03/19 07:00 Insulin Lispro [HumaLOG] 6 unit SUBCUT 0700,1100 12/03/19 09:00 Losartan [Cozaar] 50 mg PO DAILY Metoprolol Succinate [Toprol XL] 25 mg PO DAILY Spironolactone [Aldactone] 25 mg PO DAILY 12/03/19 12:00 Dasatinib [Sprycel] 50 mg PO DAILY 12/03/19 16:00 Insulin Lispro [HumaLOG] 2 unit SUBCUT 1600 12/04/19 05:11 HEMOGLOBIN/HEMATOCRIT,HH [HEME] AM - Plan Plan:: Assessment * 64-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 * No known cause of GI bleed and thought to be secondary to end-stage leukemia * History of developmental delay, bipolar, depression, insomnia CHF, hypertension, stage III chronic renal disease, diabetes Plan * Admit to medical floor * Monitor hemoglobin daily * No aggressive management of her GI bleed. * [facility] will not accept her back because of her increased care. * Continue home meds as previous * Sliding scale insulin * VTE prophylaxis: Not indicated secondary to GI bleed and comfort measures * CODE STATUS: DNR/DNI * Length of stay dependent on placement (Patient and her sister have discussed openly that she is at the end stage of her life. She has been getting multiple transfusions and has had a complete work-up for her multiple bouts of gastrointestinal bleeding. They are in agreement that there is nothing specifically more that can be done. Francoise understand that she is at end-stage of her leukemia and that this is fatal. They asked that we keep her comfortable and trend her hemoglobin over the next few days. They are in agreement with Ativan as needed for anxiety and to continue her sleeping medications for her insomnia. Patient will therefore be a DNR/DNI comfort measures.)
[2019-12-03] MEDS ORDERED: LOXAPINE 25 MG PO SCH (15:34)
[2019-12-03] MEDS ORDERED: LOXAPINE SUCCINATE 25 MG PO SCH (15:35)
[2019-12-03] MEDS ORDERED: INSULIN ASPART 2 UNIT SQ SCH (16:00)
[2019-12-03] MEDS ORDERED: Insulin Lispro 100 Units/ML 3 ML Vial SUBCUT SCH (16:00)
[2019-12-03] MEDS: traZODone 50 MG Tab PO SCH (20:41)
[2019-12-03] MEDS: Melatonin 3 MG Tab PO SCH (20:41)
[2019-12-03] MEDS: Temazepam 30 MG Cap PO SCH (20:42)
[2019-12-03] MEDS: Insulin Glarg,Human.Rec.Analog 100 Unit/ML SUBCUT SCH (20:53)
--- NOTE | 2019-12-04 06:58 | PCM.PN ---
- General Info Date of Service: 12/04/19 Admission Dx/Problem (Free Text): Admission Diagnosis/Problem Admission Diagnosis/Problem GI bleed requiring more than 4 units of blood in 24 hours, ICU, or surgery - Patient Data Vitals - Most Recent: Last Vital Signs Temp 99.0 F 12/04/19 03:54 Pulse 80 12/04/19 03:54 Resp 17 12/04/19 03:54 BP 155/46 H 12/04/19 03:54 Pulse Ox 99 12/04/19 03:54 Weight - Most Recent: 136 lb 1.6 oz I&O - Last 24 Hours: Intake & Output 12/03/19 12/03/19 12/04/19 14:59 22:59 06:59 Intake Total 680 2140 440 Output Total 500 Balance 680 1640 440 Lab Results Last 24 Hours: Laboratory Results - last 24 hr 12/03/19 12/03/19 12/03/19 Range/Units 06:52 09:35 11:39 Hgb 7.7 L D (11.2-15.7) gm/dl Hct (34.1-44.9) % POC Glucose 122 H 115 (80-115) mg/dL 12/03/19 12/03/19 12/04/19 Range/Units 16:17 20:39 04:58 Hgb 7.3 L* (11.2-15.7) gm/dl Hct 23.8 L (34.1-44.9) % POC Glucose 291 H 96 (80-115) mg/dL 12/04/19 Range/Units 06:45 Hgb (11.2-15.7) gm/dl Hct (34.1-44.9) % POC Glucose 89 (80-115) mg/dL Med Orders - Current: Current Medications Acetaminophen (Tylenol) 650 mg PO Q4H PRN PRN Reason: Pain (Mild 1-3)/fever Clonidine HCl (Catapres) 0.3 mg PO BID [facility] Last Admin: 12/03/19 20:41 Dose: 0.3 mg Furosemide (Lasix) 40 mg PO BIDDIURETIC [facility] Last Admin: 12/03/19 13:10 Dose: 40 mg Insulin Glargine (Lantus) 13 unit SUBCUT BEDTIME [facility] Last Admin: 12/03/19 20:53 Dose: 13 units Insulin Human Lispro (Humalog) 6 unit SUBCUT 0700,1100 [facility] Last Admin: 12/03/19 11:52 Dose: 6 units Insulin Human Lispro (Humalog) 0 unit SUBCUT QIDACANDBED [facility]; Protocol Last Admin: 12/03/19 16:19 Dose: 3 units Insulin Human Lispro (Humalog) 2 unit SUBCUT 1600 [facility] Last Admin: 12/03/19 16:18 Dose: 2 units Levothyroxine Sodium (Synthroid) 88 mcg PO DAILY@0600 [facility] Last Admin: 12/03/19 06:10 Dose: 88 mcg Losartan Potassium (Cozaar) 50 mg PO DAILY [facility] Last Admin: 12/03/19 09:43 Dose: 50 mg Melatonin (Melatonin) 6 mg PO BEDTIME [facility] Last Admin: 12/03/19 20:41 Dose: 6 mg Metoprolol Succinate (Toprol Xl) 25 mg PO DAILY [facility] Last Admin: 12/03/19 09:44 Dose: 25 mg Nystatin (Nystatin Crm) 0 gm TOP BID PRN PRN Reason: Itching Ondansetron HCl (Zofran) 4 mg IV Q4H PRN PRN Reason: Nausea/Vomiting Loxapine 25 Mg (Capsules*Pt Own Med*) 0 each PO BEDTIME [facility] Last Admin: 12/03/19 20:56 Dose: 25 each Loxapine Succinate [ Loxapine] 25 Mg Ptom 0 each PO QPM [facility] Last Admin: 12/03/19 17:01 Dose: 1 each Sodium Chloride (Saline Flush) 10 ml FLUSH ASDIRECTED PRN PRN Reason: Keep Vein Open Last Admin: 12/02/19 12:00 Dose: 10 ml Spironolactone (Aldactone) 25 mg PO DAILY [facility] Last Admin: 12/03/19 09:43 Dose: 25 mg Sucralfate (Carafate) 1 gm PO QID [facility] Last Admin: 12/03/19 20:41 Dose: 1 gm Temazepam (Restoril) 30 mg PO BEDTIME [facility] Last Admin: 12/03/19 20:42 Dose: 30 mg Trazodone HCl (Trazodone) 100 mg PO BEDTIME [facility] Last Admin: 12/03/19 20:41 Dose: 100 mg Discontinued Medications Sodium Chloride (Normal Saline) Confirm Administered Dose 500 mls @ as directed .ROUTE .STK-MED ONE Stop: 12/02/19 14:29 Sodium Chloride (Normal Saline) 500 mls @ 25 mls/hr IV ASDIRECTED [facility] Non-Formulary Medication (Insulin Aspart) 2 unit SQ ACDINNER [facility] Non-Formulary Medication (Melatonin [Melatonin]) 5 mg PO BEDTIME [facility] Loxapine Succinate [ Loxapine] 25 Mg Ptom 0 each PO QPM [facility] Last Admin: 12/03/19 16:42 Dose: Not Given Loxapine 25 Mg (Capsules*Pt Own Med*) 0 each PO BEDTIME [facility] Last Admin: 12/02/19 20:47 Dose: 50 each Sepsis Event Note - Evaluation Sepsis Screening Result: No Definite Risk - Focused Exam Vital Signs: Vital Signs Temp Pulse Resp BP Pulse Ox 12/04/19 03:54 99.0 F 80 17 155/46 H 99 12/03/19 20:41 99.1 F 75 18 158/48 H 98 Date Exam was Performed: 12/04/19 Time Exam was Performed: 06:57 - Plan Plan:: Assessment * 64-year-old female with end-stage CML with GI bleed * Given 2 units packed red blood cells * Now is requesting comfort measures * 4 total episodes of endoscopy including of video endoscopy done in [place] last week. * No known cause of GI bleed and thought to be secondary to end-stage leukemia * History of developmental delay, bipolar, depression, insomnia CHF, hypertension, stage III chronic renal disease, diabetes Plan * Admit to medical floor * Monitor hemoglobin daily * No aggressive management of her GI bleed. * [facility] will not accept her back because of her increased care. * Continue home meds as previous * Sliding scale insulin * VTE prophylaxis: Not indicated secondary to GI bleed and comfort measures * CODE STATUS: DNR/DNI * Length of stay dependent on placement (Patient and her sister have discussed openly that she is at the end stage of her life. She has been getting multiple transfusions and has had a complete work-up for her multiple bouts of gastrointestinal bleeding. They are in agreement that there is nothing specifically more that can be done. Francoise understand that she is at end-stage of her leukemia and that this is fatal. They asked that we keep her comfortable and trend her hemoglobin over the next few days. They are in agreement with Ativan as needed for anxiety and to continue her sleeping medications for her insomnia. Patient will therefore be a DNR/DNI comfort measures.)
[2019-12-04] MEDS: Insulin Lispro 100 Units/ML 3 ML Vial SUBCUT SCH ×6 (07:48→13:00)
[2019-12-04] MEDS: Furosemide 40 MG Tab PO SCH (08:00)
[2019-12-04] MEDS: Sucralfate 1 GM Tab PO SCH ×2 (08:08→13:06)
[2019-12-04] MEDS: cloNIDine 0.1 MG Tab PO SCH (08:08)
[2019-12-04] MEDS: Levothyroxine 88 MCG Tab PO SCH (08:08)
[2019-12-04] MEDS: Spironolactone 25 MG Tab PO SCH (08:08)
[2019-12-04] MEDS: Losartan 100 MG Tab PO SCH (08:10)
[2019-12-04] MEDS: Metoprolol Succinate 25 MG Tab.ER PO SCH (08:10)
[2019-12-04] MEDS ORDERED: Docusate Sodium 100 MG Cap PO SCH (11:30)
[2019-12-04 13:05] VITALS: BP 144/77; PULSE 71
--- NOTE | 2019-12-04 13:44 | PCM.DCSUM1 ---
Discharge Summary - Hospital Course HPI Initial Comments: 64-year-old developmentally delayed female with a history of chronic myelogenous leukemia presented to the emergency department after having a large amount of hematochezia. Patient states that she had 512 bowls fall. Apparently she was recently in [place] where she had a transfusion and endoscopy. She was seen here last year with similar complaints. She has had a total of 4 different endoscopes and no cause for her GI bleeding has been definitively found. It is now felt this is likely the end stages of her leukemia. Dr. Dow is her oncologist. When she was transfused last her hemoglobin was around 7.5. Now her hemoglobin in the emergency department was 5.5. Now she feels dizzy, lightheaded, and is pale. She was accompanied by her sister today both in the emergency room and on admission. They are in agreement that she would like to receive 2 units of packed red blood cells, but then she wants to be comfort measures. Diagnosis: Stroke: No - Discharge Data Discharge Date: 12/04/19 (Admit date 12/02/19) Discharge Disposition: DC/Tfer to Other Condition: Poor - Referral to Home Health Primary Care Physician: Luís Cespedes MD - Discharge Diagnosis/Problem(s) (1) Need for comfort care SNOMED Code(s): 532323685, [id number] ICD Code: [id number] - Status: Acute Priority: High Current Visit: Yes (2) Living in assisted living SNOMED Code(s): 883475738, 634010033 ICD Code: Z59.3 - PROBLEMS RELATED TO LIVING IN RESIDENTIAL INSTITUTION Status: Acute Priority: High Current Visit: Yes (3) Poor prognosis SNOMED Code(s): 062467208 ICD Code: Z78.9 - OTHER SPECIFIED HEALTH STATUS Status: Acute Priority: High Current Visit: Yes (4) GI bleed SNOMED Code(s): 53170164 ICD Code: K92.2 - GASTROINTESTINAL HEMORRHAGE, UNSPECIFIED Status: Chronic Priority: High Current Visit: Yes Qualifiers: GI bleed type/associated pathology: melena Qualified Code(s): K92.1 - Melena (5) Leukemia SNOMED Code(s): 68446166 ICD Code: C95.90 - LEUKEMIA, UNSPECIFIED NOT HAVING ACHIEVED REMISSION Status: Chronic Priority: High Current Visit: Yes Qualifiers: Leukemia type: unspecified Leukemia Active/Remission status: relapsed Qualified Code(s): C95.92 - Leukemia, unspecified, in relapse (6) CML (chronic myelocytic leukemia) SNOMED Code(s): 19668751 ICD Code: C92.10 - CHRONIC MYELOID LEUK, BCR/ABL-POSITIVE, NOT ACHIEVE REMIS Status: Chronic Priority: High Current Visit: Yes (7) Chronic renal insufficiency SNOMED Code(s): 070584319 ICD Code: N18.9 - CHRONIC KIDNEY DISEASE, UNSPECIFIED Status: Chronic Priority: Medium Current Visit: No Qualifiers: Chronic kidney disease stage: unspecified stage Qualified Code(s): N18.9 - Chronic kidney disease, unspecified (8) Constipation SNOMED Code(s): 00908053 ICD Code: K59.00 - CONSTIPATION, UNSPECIFIED Status: Chronic Priority: Medium Current Visit: No Qualifiers: Constipation type: unspecified constipation type Qualified Code(s): K59.00 - Constipation, unspecified (9) Congestive heart failure SNOMED Code(s): 02461902 ICD Code: I50.9 - HEART FAILURE, UNSPECIFIED Status: Chronic Priority: Medium Current Visit: No Qualifiers: Heart failure type: diastolic Heart failure chronicity: chronic Qualified Code(s): I50.32 - Chronic diastolic (congestive) heart failure - Patient Summary/Data Consults: Consultations 12/03/19 18:31 Consult to Occupational Therapy [OT Evaluation and Treatment] [CONS] Routine PT Evaluation and Treatment [CONS] Routine 12/04/19 07:02 Consult to Spiritual Care [CONS] Routine Labs Pending at D/C: None Recommended Follow-up Testing/Procedures: Follow-up with primary care provider as needed for comfort care. Hospital Course: Francoise was admitted to the floor with a GI bleed. She was given 2 units of packed red blood cells in the emergency room which increased her hemoglobin to 7.7. Her sister, who is her power of business attorney, and her discussed her overall prognosis and plan. It was decided that she would receive 2 units of blood and then become comfort care. Unfortunately this morning her hemoglobin dropped to 7.3. Patient and her sister were updated and were in agreement that no more blood should be given. Her blood glucose levels have been a little bit on the lower side and her short acting insulin was stopped. Long-acting insulin continued. Her statin as well as several of her chronic medications were also discontinued. While here family requested no further lab draws and vital signs every shift. She is continued to have melanic stool. She did report a feeling of constipation and family does report that she has had this for quite some time. Unsure if this is related to her cancer and bleed, she did have a bowel movement on the third. Discussed with the patient and her sister that this will be fatal. She was evaluated by PT/OT to ensure she is appropriate to return back to [facility]. They agree that she was appropriate and [facility] did come visit to ensure this is well. She will be discharged today under comfort care back to [facility]. She was instructed to follow-up with her primary care provider as needed for comfort care. They are aware that she will likely become weak and require more assistance. Family has been very involved in her care. - Patient Instructions Diet: Usual Diet as Tolerated Activity: As Tolerated Driving: Do Not Drive Showering/Bathing: May Shower Notify Provider of: Fever, Increased Pain, Nausea and/or Vomiting Other/Special Instructions: Discharged on comfort care. Patient has had blood in her stool chronically. This will likely continue. Follow-up with primary care provider as needed for comfort care. Resume home medications as indicated. Some medications were discontinued. Insulin regimine was adjusted. Consider hospice at [facility]. - Discharge Plan *PRESCRIPTION DRUG MONITORING PROGRAM REVIEWED*: No *COPY OF PRESCRIPTION DRUG MONITORING REPORT IN PATIENT KAELA: No Home Medications: Home Meds Furosemide [Lasix] 40 mg PO BID 08/31/15 [History] Losartan Potassium [Cozaar] 50 mg PO DAILY 08/31/15 [History] Loxapine Succinate [Loxapine] 25 mg PO QPM 08/31/15 [History] Loxapine Succinate [Loxapine] 50 mg PO BEDTIME 08/31/15 [History] cloNIDine [Catapres] 0.3 mg PO BID 08/31/15 [History] traZODone 100 mg PO BEDTIME 08/31/15 [History] Nystatin [Nystatin Crm] 1 applic TOP BID PRN 08/30/17 [History] Temazepam 30 mg PO BEDTIME 08/30/17 [History] Carboxymethylcellulose Sodium [Refresh Tears 0.5%] 1 drop EYEBOTH BID 01/19/18 [ History] Ondansetron [Zofran ODT] 4 mg SL Q4HR PRN 01/19/18 [History] Spironolactone [Aldactone] 25 mg PO DAILY 01/19/18 [History] Insulin Degludec [Tresiba] 13 units SQ BEDTIME 01/24/19 [History] Melatonin 5 mg PO BEDTIME 01/24/19 [History] Polyethylene Glycol 3350 [Miralax] 17 gm PO DAILY PRN 06/28/19 [History] Metoprolol Succinate [Toprol XL] 25 mg PO DAILY 08/19/19 [History] Levothyroxine [Synthroid] 88 mcg PO DAILY 11/06/19 [History] Sucralfate [Carafate] 1 gm PO QID 11/06/19 [History] Oxygen Therapy Mode: Room Air Patient Handouts: Lower Gastrointestinal Bleeding, Steps to Quit Smoking Forms: ED Department Discharge Referrals: Luís Cespedes MD [Primary Care Provider] - 12/12/19 2:15 pm (please attend the scheduled follow up appointment listed.) - Discharge Summary/Plan Comment DC Time >30 min.: No - General Info Date of Service: 12/04/19 Admission Dx/Problem (Free Text: Admission Diagnosis/Problem Admission Diagnosis/Problem GI bleed requiring more than 4 units of blood in 24 hours, ICU, or surgery Functional Status: Reports: Pain Controlled, Tolerating Diet, Ambulating, Urinating. Denies: New Symptoms - Review of Systems General: Reports: Weakness. Denies: Fever, Fatigue, Malaise, Chills HEENT: Reports: No Symptoms. Denies: Headaches, Sore Throat Pulmonary: Reports: No Symptoms. Denies: Shortness of Breath, Cough, Sputum, Wheezing Cardiovascular: Reports: No Symptoms. Denies: Chest Pain, Palpitations, Edema Gastrointestinal: Reports: Constipation, Melena. Denies: Abdominal Pain, Diarrhea, Nausea, Vomiting Genitourinary: Reports: No Symptoms. Denies: Pain Musculoskeletal: Reports: No Symptoms Skin: Reports: No Symptoms. Denies: Cyanosis Neurological: Reports: No Symptoms. Denies: Difficulty Walking, Gait Disturbance Psychiatric: Reports: No Symptoms - Patient Data Vitals - Most Recent: Last Vital Signs Temp 98.2 F 12/04/19 11:07 Pulse 71 12/04/19 11:07 Resp 18 12/04/19 11:07 BP 144/77 H 12/04/19 11:07 Pulse Ox 99 12/04/19 11:07 Weight - Most Recent: 136 lb 1.6 oz I&O - Last 24 hours: Intake & Output 12/03/19 12/04/19 12/04/19 22:59 06:59 14:59 Intake Total 2140 440 420 Output Total 500 Balance 1640 440 420 Lab Results - Last 24 hrs: Laboratory Results - last 24 hr 12/03/19 12/03/19 12/04/19 Range/Units 16:17 20:39 04:58 Hgb 7.3 L* (11.2-15.7) gm/dl Hct 23.8 L (34.1-44.9) % POC Glucose 291 H 96 (80-115) mg/dL 12/04/19 12/04/19 Range/Units 06:45 11:05 Hgb (11.2-15.7) gm/dl Hct (34.1-44.9) % POC Glucose 89 109 (80-115) mg/dL Med Orders - Current: Current Medications Acetaminophen (Tylenol) 650 mg PO Q4H PRN PRN Reason: Pain (Mild 1-3)/fever Clonidine HCl (Catapres) 0.3 mg PO BID [facility] Last Admin: 12/04/19 08:08 Dose: 0.3 mg Docusate Sodium (Colace) 100 mg PO DAILY [facility] Last Admin: 12/04/19 13:06 Dose: 100 mg Furosemide (Lasix) 40 mg PO BIDDIURETIC [facility] Last Admin: 12/04/19 13:07 Dose: 40 mg Insulin Glargine (Lantus) 10 unit SUBCUT BEDTIME [facility] Levothyroxine Sodium (Synthroid) 88 mcg PO DAILY@0600 [facility] Last Admin: 12/04/19 08:08 Dose: 88 mcg Losartan Potassium (Cozaar) 50 mg PO DAILY [facility] Last Admin: 12/04/19 08:10 Dose: 50 mg Melatonin (Melatonin) 6 mg PO BEDTIME [facility] Last Admin: 12/03/19 20:41 Dose: 6 mg Metoprolol Succinate (Toprol Xl) 25 mg PO DAILY [facility] Last Admin: 12/04/19 08:10 Dose: 25 mg Nystatin (Nystatin Crm) 0 gm TOP BID PRN PRN Reason: Itching Ondansetron HCl (Zofran) 4 mg IV Q4H PRN PRN Reason: Nausea/Vomiting Loxapine 25 Mg (Capsules*Pt Own Med*) 0 each PO BEDTIME [facility] Last Admin: 12/03/19 20:56 Dose: 25 each Loxapine Succinate [ Loxapine] 25 Mg Ptom 0 each PO QPM [facility] Last Admin: 12/03/19 17:01 Dose: 1 each Sodium Chloride (Saline Flush) 10 ml FLUSH ASDIRECTED PRN PRN Reason: Keep Vein Open Last Admin: 12/02/19 12:00 Dose: 10 ml Spironolactone (Aldactone) 25 mg PO DAILY [facility] Sucralfate (Carafate) 1 gm PO QID [facility] Last Admin: 12/04/19 13:06 Dose: 1 gm Temazepam (Restoril) 30 mg PO BEDTIME [facility] Last Admin: 12/03/19 20:42 Dose: 30 mg Trazodone HCl (Trazodone) 100 mg PO BEDTIME [facility] Last Admin: 12/03/19 20:41 Dose: 100 mg Discontinued Medications Furosemide (Lasix) 40 mg PO BIDDIURETIC [facility] Last Admin: 12/04/19 08:00 Dose: 40 mg Sodium Chloride (Normal Saline) Confirm Administered Dose 500 mls @ as directed .ROUTE .STK-MED ONE Stop: 12/02/19 14:29 Sodium Chloride (Normal Saline) 500 mls @ 25 mls/hr IV ASDIRECTED [facility] Insulin Glargine (Lantus) 13 unit SUBCUT BEDTIME [facility] Last Admin: 12/03/19 20:53 Dose: 13 units Insulin Human Lispro (Humalog) 6 unit SUBCUT 0700,1100 [facility] Last Admin: 12/04/19 07:52 Dose: Not Given Insulin Human Lispro (Humalog) 0 unit SUBCUT QIDACANDBED [facility]; Protocol Last Admin: 12/04/19 12:59 Dose: Not Given Insulin Human Lispro (Humalog) 2 unit SUBCUT 1600 [facility] Last Admin: 12/03/19 16:18 Dose: 2 units Insulin Human Lispro (Humalog) 4 unit SUBCUT 0700,1100 [facility] Last Admin: 12/04/19 13:00 Dose: Not Given Non-Formulary Medication (Insulin Aspart) 2 unit SQ ACDINNER [facility] Non-Formulary Medication (Melatonin [Melatonin]) 5 mg PO BEDTIME [facility] Loxapine Succinate [ Loxapine] 25 Mg Ptom 0 each PO QPM [facility] Last Admin: 12/03/19 16:42 Dose: Not Given Loxapine 25 Mg (Capsules*Pt Own Med*) 0 each PO BEDTIME [facility] Last Admin: 12/02/19 20:47 Dose: 50 each Spironolactone (Aldactone) 25 mg PO DAILY [facility] Last Admin: 12/04/19 08:08 Dose: 25 mg - Exam Quality Assessment: Denies: Supplemental Oxygen General: Reports: Alert, Oriented, Cooperative, No Acute Distress HEENT: Reports: Pupils Equal, Pupils Reactive, Mucous Membr. Moist/[place] Neck: Reports: Supple, Trachea Midline Lungs: Reports: Clear to Auscultation, Normal Respiratory Effort Cardiovascular: Reports: Regular Rate, Regular Rhythm GI/Abdominal Exam: Normal Bowel Sounds, Soft, Non-Tender, No Distention (Female) Exam: Deferred Rectal (Female) Exam: Deferred Back Exam: Reports: Normal Inspection, Full Range of Motion Extremities: Normal Inspection, Normal Range of Motion, Non-Tender, No Pedal Edema, Normal Capillary Refill Skin: Reports: Warm, Dry, Intact Neurological: Reports: No New Focal Deficit Psy/Mental Status: Reports: Alert
[2019-12-04] MEDS ORDERED: Furosemide 40 MG Tab PO SCH (14:00)
[2019-12-04] MEDS ORDERED: Insulin Glarg,Human.Rec.Analog 100 Unit/ML SUBCUT SCH (21:00)
[2019-12-05] MEDS ORDERED: Spironolactone 25 MG Tab PO SCH (09:00)
== END 2019-12-04 14:50 | disposition other institution (70) | DRG 378 ==
LOC: JD.ED 11:32 → JD.MS 16:54
PROVIDERS: ADMIT Family Medicine; ATTEND Family Medicine
PROC: 30233N1 Transfusion of Nonautologous Red Blood Cells into Peripheral Vein, Percutaneous Approach (ICD-10-PCS; principal; 2019-12-02)
DX: K92.1 Melena (principal); D61.810 Antineoplastic chemotherapy induced pancytopenia; T45.1X5A Adverse effect of antineoplastic and immunosuppressive drugs, initial encounter; C92.10 Chronic myeloid leukemia, BCR/ABL-positive, not having achieved remission; I11.0 Hypertensive heart disease with heart failure; I13.0 Hypertensive heart and chronic kidney disease with heart failure and stage 1 through stage 4 chronic kidney disease, or unspecified chronic kidney disease; C95.92 Leukemia, unspecified, in relapse; I50.32 Chronic diastolic (congestive) heart failure; Z66 Do not resuscitate; D64.9 Anemia, unspecified; Z51.5 Encounter for palliative care; I70.1 Atherosclerosis of renal artery; Z87.820 Personal history of traumatic brain injury; E03.9 Hypothyroidism, unspecified; F32.9 Major depressive disorder, single episode, unspecified; F31.9 Bipolar disorder, unspecified; E11.22 Type 2 diabetes mellitus with diabetic chronic kidney disease; G47.00 Insomnia, unspecified; N18.3 Chronic kidney disease, stage 3 (moderate); K59.00 Constipation, unspecified; Z79.890 Hormone replacement therapy; K21.9 Gastro-esophageal reflux disease without esophagitis; E78.00 Pure hypercholesterolemia, unspecified; E66.9 Obesity, unspecified; F41.9 Anxiety disorder, unspecified; Z88.6 Allergy status to analgesic agent; Z88.7 Allergy status to serum and vaccine; Z79.4 Long term (current) use of insulin; Z79.899 Other long term (current) drug therapy; Z90.49 Acquired absence of other specified parts of digestive tract; Z98.49 Cataract extraction status, unspecified eye; Z87.891 Personal history of nicotine dependence; Z68.27 Body mass index [BMI] 27.0-27.9, adult
CPT/HCPCS: 36415; 36430; 80053; 85025; 86850; 86900; 86901; 86922; P9016 ×2; 82962; 85014; 85018; 97162-GP; 97165-GO; 99284; A9270-GY; J1815-GY

== ENCOUNTER 2020-12-31 10:29 | Emergency (ER) | payer MEDICARE, MEDICAID ==
[2020-12-31 10:44] VITALS: BP 147/50; PULSE 99
[2020-12-31] MEDS ORDERED: Sodium Chloride 0.9% 1,000 ML IV SCH (11:00)
[2020-12-31] MEDS ORDERED: HYDROmorphone 0.5 MG/0.5 ML Syringe IVPUSH ONE (11:08)
[2020-12-31] MEDS ORDERED: Ondansetron 4 MG/2 ML SDV IVPUSH ONE (11:08)
--- NOTE | 2020-12-31 11:09 | EDM.PDOC ---
ED HPI GENERAL MEDICAL PROBLEM - General Chief Complaint: Chest Pain Stated Complaint: CHEST PAIN Time Seen by Provider: 12/31/20 10:55 Source of Information: Reports: Patient History Limitations: Reports: No Limitations - History of Present Illness INITIAL COMMENTS - FREE TEXT/NARRATIVE: 65-year-old female who is currently a resident of [facility] where she receives assisted living presents to the ED for evaluation of left precordial chest pain that apparently started last evening. She is unsure if it started before after eating supper. She ate breakfast this morning and denies any odynophagia. No excessive burping belching. She slept overnight without any issues. Last evening she was given Tums and aspirin which she relates did not help the pain. She does not think she suffers from chronic reflux or heartburn. She denies any recent falls or injuries to her chest wall. She has no history of coronary disease. She has a history of chronic myelogenous leukemia which is not being treated. She did undergo chemotherapy in the past IV over a year ago which precipitated severe anemia requiring blood transfusion on a weekly basis. After period of time she and her family members opted for compassionate terminal care and no further blood transfusions. Patient has difficulty qualifying the type of pain she is experiencing whether to sharp sta bbing or just an ache. She denies it getting worse with deep breathing. She has no cough or sputum production no fever or chills. She had COVID-19 illness back in August of last year. Onset: Unknown/Unsure (Darted last evening. Unclear if it started before after eating supper.) Onset Date: 12/30/20 Duration: Hour(s): (Pain has been present for greater than 12 hours), Constant, Waxing/Waning. No: Getting Worse Location: Reports: Chest (Precordial chest pain) Quality: Reports: Other (He has difficulty qualifying the type of pain she is experiencing.) Severity: Mild Improves with: Reports: None Worsens with: Reports: None Context: Denies: Activity, Exercise, Lifting, Sick Contact, Trauma, Other Associated Symptoms: Reports: No Other Symptoms, Chest Pain. Denies: Confusion, Cough, cough w sputum, Diaphoresis, Fever/Chills, Headaches, Loss of Appetite, Malaise, Nausea/Vomiting, Rash, Seizure, Shortness of Breath, Syncope Treatments DIRECTOR SCRIPT: Reports: Other (see below) (Aspirin 325 mg given early this morning.) - Related Data Allergies Allergy/AdvReac Type Severity Reaction Status Date / Time aspirin AdvReac Bleeding Verified 12/31/20 10:42 Influenza Virus Vaccines AdvReac Anxiety Verified 12/31/20 10:42 Home Meds: Home Meds Furosemide [Lasix] 40 mg PO BID 08/31/15 [History] Losartan Potassium [Cozaar] 50 mg PO DAILY 08/31/15 [History] cloNIDine [Catapres] 0.3 mg PO BID 08/31/15 [History] traZODone 100 mg PO BEDTIME 08/31/15 [History] Nystatin [Nystatin Crm] 1 applic TOP BID PRN 08/30/17 [History] Temazepam 30 mg PO BEDTIME 08/30/17 [History] Carboxymethylcellulose Sodium [Refresh Tears 0.5%] 1 drop EYEBOTH BID 01/19/18 [History] Insulin Degludec [Tresiba] 16 units SQ BEDTIME 01/24/19 [History] Melatonin 5 mg PO BEDTIME 01/24/19 [History] polyethylene glycoL 3350 [Miralax] 17 gm PO DAILY PRN 06/28/19 [History] Metoprolol Succinate [Toprol XL] 25 mg PO DAILY 08/19/19 [History] Levothyroxine [Synthroid] 88 mcg PO DAILY 11/06/19 [History] Sucralfate [Carafate] 1 gm PO QID 11/06/19 [History] Memantine HCl [Namenda] 5 mg PO DAILY 12/31/20 [History] risperiDONE [Risperidone] 4 mg PO BEDTIME 12/31/20 [History] Past Medical History HEENT History: Reports: Impaired Vision, Other (See Below) Other HEENT History: IDIOPATHIC OROFACIAL DYSTONIA. pt wears glasses for reading Cardiovascular History: Reports: Heart Failure, High Cholesterol, Hypertension, Other (See Below) Other Cardiovascular History: venous insufficiency, atypical chest pain; angina pectoris inspecified. 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 Neurological History: Reports: Brain Injury, Other (See Below) Other Neuro History: TBI Psychiatric History: Reports: Bipolar, Dementia, Depression, Other (See Below) Other Psychiatric History: INSOMNIA, INTELLECTUAL DISABILTIES Endocrine/Metabolic History: Reports: Diabetes, Type II, Hypothyroidism, Obesity/BMI 30+ Hematologic History: Reports: Anemia, Blood Transfusion(s), Other (See Below) Other Hematologic History: Chronic Myeloid Leukemia Immunologic History: Reports: None Oncologic (Cancer) History: Reports: Leukemia, Other (See Below) Other Oncologic History: Chronic Myeloid Leukemia Dermatologic History: Reports: None - Infectious Disease History Infectious Disease History: Reports: Influenza, MRSA, Novel Coronavirus, Other (See Below) Other Infectious Disease History: MRSA history in Nares - Past Surgical History HEENT Surgical History: Reports: Cataract Surgery, Oral Surgery Respiratory Surgical History: Reports: None GI Surgical History: Reports: Appendectomy, Cholecystectomy, Colonoscopy, EGD Other GI Surgeries/Procedures: EGD/colonoscopy and colon repair 2 weeks ago Female Surgical History: Reports: Tubal Ligation Musculoskeletal Surgical History: Reports: Other (See Below) Other Musculoskeletal Surgeries/Procedures:: Left leg surgery. Oncologic Surgical History: Reports: Bone Marrow Aspiration Social & Family History - Family History Family Medical History: No Pertinent Family History - Tobacco Use Tobacco Use Status *Q: Former Tobacco User Used Tobacco, but Quit: Yes Month/Year Tobacco Last Used: 10/2019 - Caffeine Use Caffeine Use: Reports: Coffee Other Caffeine Use: 3 cups of coffee every day, one can of pop every other day. - Recreational Drug Use Recreational Drug Use: No - Living Situation & Occupation Living situation: Reports: , Assisted Living ([place]) Occupation: Disabled ED [facility] - Review of Systems Review Of Systems: See Below Constitutional: Denies: Fever, Chills, Malaise, Weakness, Fatigue, Decreased Appetite, Weight Loss HEENT: Reports: Glasses Respiratory: Denies: Shortness of Breath, Wheezing, Pleuritic Chest Pain, Cough, Sputum Cardiovascular: Reports: Chest Pain (Precordial chest pain since last evening around suppertime.). Denies: Blood Pressure Problem, Claudication, Dyspnea on Exertion, Edema, Lightheadedness, Orthopnea, Palpitations Endocrine: Reports: No Symptoms GI/Abdominal: Reports: Decreased Appetite, Other (Denies history of heartburn.). Denies: Abdominal Pain, Anorexia, Black Stool, Bloody Stool, Constipation, Diarrhea, Difficulty Swallowing, Melena, Nausea, Vomiting : Reports: Frequency. Denies: Incontinence Musculoskeletal: Reports: Neck Pain, Back Pain, Joint Pain (Sometimes her knees hurt.) Skin: Reports: Other (MLC's abdominal wall secondary to use of insulin for blood sugar control) Neurological: Reports: Difficulty Walking (Uses a walker at all times) Psychiatric: Reports: Anxiety, Depression Hematologic/Lymphatic: Reports: Anemia, Other (Strip chronic myelogenous leukemia for greater than 2 years) ED EXAM, GENERAL - Physical Exam Exam: See Below Exam Limited By: No Limitations General Appearance: Alert, WD/WN, No Apparent Distress, Other (Patient is mentally handicapped but does provide a fairly good history. She has some difficulty qualifying the type of pain she is experiencing.) Eye Exam: Bilateral Eye: PERRL, Other (He does have mild blepharal pallor. No scleral icterus.) Throat/Mouth: Normal Lips, Normal Oropharynx, Other (Tongue is mildly dry. She claims she ate a good breakfast.). No: Normal Teeth Head: Atraumatic, Normocephalic Neck: Normal Inspection, Supple, Non-Tender, Full Range of Motion. No: Carotid Bruit, Lymphadenopathy (L), Lymphadenopathy (R) Respiratory/Chest: No Respiratory Distress, Lungs Clear, Normal Breath Sounds, No Accessory Muscle Use, Other (Not identify any specific area of tenderness on palpation of the chest wall midclavicular line bilaterally.) Cardiovascular: Normal Peripheral Pulses, Regular Rate, Rhythm, No Edema, No Gallop, No Murmur Peripheral Pulses: 2+: Posterior Tibial (L), Posterior Tibial (R), Dorsalis Pedis (L), Dorsalis Pedis (R), 3+: Carotid (L), Carotid (R) GI/Abdominal: Normal Bowel Sounds, Soft, Non-Tender, No Organomegaly, No Abnormal Bruit, No Mass, Pelvis Stable, Other (Notable ecchymoses across the lower abdomen from insulin site injections.) Back Exam: Normal Inspection, Full Range of Motion. No: CVA Tenderness (L), CVA Tenderness (R) Extremities: No Pedal Edema, Other (No clinical evidence of DVT in either lower extremity. Patient does have bilateral venous stasis dermatitis and healed ulcerations both lower extremities.) Neurological: Alert, Oriented, CN II-XII Intact, Normal Cognition, Other (Patient is mildly mentally handicapped) Psychiatric: Normal Affect, Normal Mood Skin Exam: Warm, Dry, Intact, Ecchymosis (On a wall at site of insulin injections.) #1 Interpretation EKG Date: 12/31/20 Time: 10:37 Rhythm: NSR Rate (Beats/Min): 66 Jelm: LAD-Left Jelm Deviation P-Wave: Present (-10 degrees left atrial hypertrophy) QRS: Other (First-degree AV block initial poor R wave progression consider ischemia in the anterior septal wall.) ST-T: Other (T wave inversion aVL nonspecific diffuse early repolarization pattern peaked T waves in multiple leads consider hyperkalemia) QT: Normal EKG Interpretation Comments: Abnormal ECG Course - Vital Signs Last Recorded V/S: Last Vital Signs Temp 36.4 C 12/31/20 10:38 Pulse 99 12/31/20 10:38 Resp 12 12/31/20 10:38 BP 147/50 H 12/31/20 10:38 Pulse Ox 100 12/31/20 10:38 - Orders/Labs/Meds Labs: Laboratory Tests 12/31/20 12/31/20 12/31/20 Range/Units 10:56 10:56 10:56 WBC 107.78 H* (3.98-10.04) K/mm3 RBC 3.09 L (3.98-5.22) M/mm3 Hgb 10.0 L D (11.2-15.7) gm/dl Hct 31.1 L (34.1-44.9) % MCV 100.6 H (79.4-94.8) fl MCH 32.4 H (25.6-32.2) pg MCHC 32.2 (32.2-35.5) g/dl RDW Std Deviation 58.8 H (36.4-46.3) fL Plt Count 171 L (182-369) K/mm3 MPV 9.5 (9.4-12.3) fl Neut % (Auto) Cancelled Lymph % (Auto) Cancelled [place] % (Auto) Cancelled Eos % (Auto) Cancelled Baso % (Auto) Cancelled Neut # (Auto) Cancelled Lymph # (Auto) Cancelled [place] # (Auto) Cancelled Eos # (Auto) Cancelled Baso # (Auto) Cancelled Neutrophils % (Manual) 65 H (40-60) % Band Neutrophils % 9 (0-10) % Lymphocytes % (Manual) 7 L (20-40) % Atypical Lymphs % 0 % Monocytes % (Manual) 15 H (2-10) % Eosinophils % (Manual) 3 (0.7-5.8) % Basophils % (Manual) 1 (0.1-1.2) Manual Slide Review Cancelled Platelet Estimate Adequate Anisocytosis 1+ slight Macrocytosis 1+ slight RBC Morph Comment Abnormal PT 11.9 (9.7-12.0) SECONDS INR 1.11 APTT 27.1 (21.7-31.4) SECONDS Sodium 138 (136-145) mEq/L Potassium 5.1 (3.5-5.1) mEq/L Chloride 99 (98-107) mEq/L Carbon Dioxide 30 (21-32) mEq/L Anion Gap 14.1 (5-15) BUN 61 H (7-18) mg/dL Creatinine 1.6 H (0.55-1.02) mg/dL Est Cr Clr Drug Dosing 25.18 mL/min Estimated GFR (MDRD) 32 (>60) mL/min BUN/Creatinine Ratio 38.1 H (14-18) Glucose 165 H (80-115) mg/dL Calcium 10.2 H D (8.5-10.1) mg/dL Magnesium 2.4 (1.8-2.4) mg/dl Total Bilirubin 0.3 (0.2-1.0) mg/dL AST 29 (15-37) U/L ALT 33 (14-59) U/L Alkaline Phosphatase 73 (46-116) U/L CK-MB (CK-2) (0-3.6) ng/ml Troponin I < 0.017 (0.00-0.056) ng/mL C-Reactive Protein (<1.0) mg/dL NT-Pro-B Natriuret Pep (0-125) pg/mL Total Protein 8.2 (6.4-8.2) g/dl Albumin 3.7 (3.4-5.0) g/dl Globulin 4.5 gm/dL Albumin/Globulin Ratio 0.8 L (1-2) 12/31/20 12/31/20 Range/Units 10:56 10:56 WBC (3.98-10.04) K/mm3 RBC (3.98-5.22) M/mm3 Hgb (11.2-15.7) gm/dl Hct (34.1-44.9) % MCV (79.4-94.8) fl MCH (25.6-32.2) pg MCHC (32.2-35.5) g/dl RDW Std Deviation (36.4-46.3) fL Plt Count (182-369) K/mm3 MPV (9.4-12.3) fl Neut % (Auto) Lymph % (Auto) [place] % (Auto) Eos % (Auto) Baso % (Auto) Neut # (Auto) Lymph # (Auto) [place] # (Auto) Eos # (Auto) Baso # (Auto) Neutrophils % (Manual) (40-60) % Band Neutrophils % (0-10) % Lymphocytes % (Manual) (20-40) % Atypical Lymphs % % Monocytes % (Manual) (2-10) % Eosinophils % (Manual) (0.7-5.8) % Basophils % (Manual) (0.1-1.2) Manual Slide Review Platelet Estimate Anisocytosis Macrocytosis RBC Morph Comment PT (9.7-12.0) SECONDS INR APTT (21.7-31.4) SECONDS Sodium (136-145) mEq/L Potassium (3.5-5.1) mEq/L Chloride (98-107) mEq/L Carbon Dioxide (21-32) mEq/L Anion Gap (5-15) BUN (7-18) mg/dL Creatinine (0.55-1.02) mg/dL Est Cr Clr Drug Dosing mL/min Estimated GFR (MDRD) (>60) mL/min BUN/Creatinine Ratio (14-18) Glucose (80-115) mg/dL Calcium (8.5-10.1) mg/dL Magnesium (1.8-2.4) mg/dl Total Bilirubin (0.2-1.0) mg/dL AST (15-37) U/L ALT (14-59) U/L Alkaline Phosphatase (46-116) U/L CK-MB (CK-2) 1.0 (0-3.6) ng/ml Troponin I (0.00-0.056) ng/mL C-Reactive Protein 0.3 (<1.0) mg/dL NT-Pro-B Natriuret Pep 483 H (0-125) pg/mL Total Protein (6.4-8.2) g/dl Albumin (3.4-5.0) g/dl Globulin gm/dL Albumin/Globulin Ratio (1-2) Meds: Medications Discontinued Medications Generic Name Dose Route Start Last Admin Trade Name Aaron PRN Reason Stop Dose Admin Hydromorphone HCl 0.5 mg 12/31/20 11:08 12/31/20 11:23 Hydromorphone 0.5 Mg/0.5 Ml Syringe IVPUSH 12/31/20 11:09 0.5 mg ONETIME ONE Administration Sodium Chloride 1,000 mls @ 125 mls/hr 12/31/20 11:00 12/31/20 11:16 Normal Saline IV 125 mls/hr ASDIRECTED CELI Administration Nitroglycerin/Dextrose 25 mg in 250 mls @ 6 mls/hr 12/31/20 11:15 12/31/20 11:25 Nitroglycerin 25 Mg/D5w 250 Ml IV 10 mcg/min TITRATE CELI 6 mls/hr Administration Protocol 10 MCG/MIN Ondansetron HCl 4 mg 12/31/20 11:08 12/31/20 11:23 Ondansetron 4 Mg/2 Ml Sdv IVPUSH 12/31/20 11:09 4 mg ONETIME ONE Administration - Radiology Interpretation Free Text/Narrative:: 65-year-old female presents to the ED complaining of left precordial chest pain since last evening. She not sure if it started before after supper last night. No associated vomiting nausea or cough. No diaphoresis. She has no known history of coronary artery disease. She is a never smoker. She does have a history of leukemia. There is question whether this is CML versus CLL according to the old records. She is not receiving any treatment for this. Examination reveals chest wall tenderness particular ribs 4 and 5 in the midclavicular line on the left side as compared to the right side. Lungs otherwise sound clear. ECG does not show any definitive signs of ischemia although there is initial poor" R" wave progression raising the suspicion of possible anterior wall ischemia. Plan routine cardiac markers to be obtained. IV normal saline at 100 mils per hour. Nitroglycerin drip at 10mcg/min. Patient has taken 325 mg of aspirin this morning. - Re-Assessments/Exams Free Text/Narrative Re-Assessment/Exam: 12/31/20 11:48 portable chest x-ray reveals lungs to be clear. No pneumothorax no pulmonary infiltrate. Cardiac silhouette is upper limits of normal. 12/31/20 11:51 Initial hematology reveals a markedly elevated white count at 107.78. This shows 65% neutrophils 9% bands cells 7% lymphocytes and 15% monocytes suggesting CML. Hemoglobin is 10.0 with hematocrit of 31.1 MCV is elevated at 100.6. Platelet count slightly low at 171,000. The smear reveals 1+ anisocytosis and 1+ macrocytosis. Sodium is 138 with a potassium of 5.1. Chloride is 99 with a bicarb of 30. Anion gap is 14.1. BUN is 61 with a creatinine of 1.6 the creatinine was 1.07 November 2019. Estimated GFR is 32 i.e. stage III b renal insufficiency. Glucose is elevated 165 and patient is a known diabetic. Calcium is 10.2 slightly elevated magnesium is 2.4 liver function normal troponin I is less than 0.017 C-reactive protein is 0.3 BNP is mildly elevated at 483. Total protein is 8.2 with an albumin fraction of 3.7 12/31/20 11:54 I have spoken with her primary care provider Dr. 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 The family members have opted for no definitive treatment and comfort care measures over a year ago. Last white count was 52.7 in November of this year. Therefore white count as gone up a good deal in the last month or so. The decision still is compassion treatment only. Chest wall pain seems to be the source of her pain at this point time with normal cardiac markers. 12/31/20 12:49 Differential on the white count is 65% neutrophils 9% bands cells 7% lymphocytes and 15% monocytes. Patient will be discharged back to [facility] where she receives assisted living. Noncardiac chest pain. Since pain is fairly constant since last evening it is doubtful that she is having any angina. 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 She and family have previously agreed with no treatment for her leukemia. She is to be kept on comfort measures without any aggressive treatment of her leukemia at this time. Patient could be experiencing bone pain due to the leukemia with bone marrow proliferation secondary to leukemia. This can involve ribs vertebra and long bones such as femur tibia and humerus. Her serum calcium is very mildly elevated at this time suggesting hypercalcemia is due to bone marrow proliferation. She may use Tylenol 650 mg every 6 hours as needed for relief of chest wall pain or Aleve 2 tablets every 8 hours for chest wall pain. Departure - Departure Time of Disposition: 12:56 Disposition: DC/Tfer to [place] [id number] Reason for Transfer *Q: Other Condition: Fair Clinical Impression: Non-cardiac chest pain, Anterior chest wall pain, Chronic myelocytic leukemia Instructions: Chest Wall Pain, [id number] Referrals: Luís Cespedes MD [Primary Care Provider] - Forms: ED Department Discharge Additional Instructions: Evaluation in the emergency room today in regards to complaints of left precordial chest discomfort since last evening. No relationship to eating or swallowing. No associated burping or belching. Abdominal examination is normal. Lungs are clear to auscultation. Chest x-ray is within normal limits. Lab test revealed normal cardiac markers with troponin less than 0.017. She does have chest wall pain particular ribs 4 and 5 midclavicular line left anterior chest. This is reproduced on multiple exams. Laboratory work-up reveals a marked increase in her white blood cell count at 107.78 indicating a marked increase from November when it was around 52,000. Family and personal care physician have opted for compassionate terminal care greater than a year ago. She has done better than anticipated. Current chest wall pain could be due to bone marrow expansion in the ribs. Treatment is conservative with Tylenol or Aleve as needed for relief of discomfort. Sepsis Event Note (ED) - Evaluation Sepsis Screening Result: No Definite Risk - Focused Exam Vital Signs: Vital Signs Temp Pulse Resp BP Pulse Ox 12/31/20 10:38 36.4 C 99 12 147/50 H 100
[2020-12-31] MEDS ORDERED: Nitroglycerin/D5W 25 MG/250 ML BOTTLE IV SCH (11:15)
--- NOTE | 2020-12-31 13:01 | CR ---
Chest: Portable view of the chest was obtained. Comparison: Prior chest x-ray on 06/13/19. Heart size and mediastinum are within normal limits. Slight rib abnormality is seen within the seventh rib which is stable. Bony structures show nothing acute. Lungs are clear with no acute parenchymal change. Impression: 1. Stable findings as noted above. Nothing acute is seen. Diagnostic code #2
== END 2020-12-31 13:21 ==
LOC: JD.ED 10:29
DX: R07.89 Other chest pain (principal); C92.10 Chronic myeloid leukemia, BCR/ABL-positive, not having achieved remission; E78.00 Pure hypercholesterolemia, unspecified; I13.0 Hypertensive heart and chronic kidney disease with heart failure and stage 1 through stage 4 chronic kidney disease, or unspecified chronic kidney disease; I50.9 Heart failure, unspecified; E66.9 Obesity, unspecified; N18.9 Chronic kidney disease, unspecified; E11.22 Type 2 diabetes mellitus with diabetic chronic kidney disease; F03.90 Unspecified dementia, unspecified severity, without behavioral disturbance, psychotic disturbance, mood disturbance, and anxiety; E03.9 Hypothyroidism, unspecified; Z68.31 Body mass index [BMI] 31.0-31.9, adult; Z88.6 Allergy status to analgesic agent; Z88.7 Allergy status to serum and vaccine; Z87.891 Personal history of nicotine dependence
CPT/HCPCS: 36415; 71045; 80053; 82553; 83735; 83880; 84484; 85007; 85027; 85610; 85730; 86140; 93005; 96365; 96375; 99285; J1170; J2405; J3490; J7030; 93010; 99284

== ENCOUNTER 2021-03-06 13:33 | Inpatient (IN) | payer MEDICARE, MEDICAID ==
[2021-03-06] MEDS ORDERED: Sodium Chloride 0.9% 10 ML Syringe FLUSH PRN (14:05)
--- NOTE | 2021-03-06 14:06 | EDM.PDOC ---
ED HPI GENERAL MEDICAL PROBLEM - General Chief Complaint: Diabetic Complaint Stated Complaint: HIGH BLOOD SUGAR - VOMITING Time Seen by Provider: 03/06/21 14:03 Source of Information: Reports: Patient, RN Notes Reviewed, Other ([place] transfer records) - History of Present Illness INITIAL COMMENTS - FREE TEXT/NARRATIVE: 65 yr old female sent here from [place] for eval of high blood sugars, increa sed confusion, more difficulty caring for self than usual and emesis times 1. She does have hx of Type 2 diabetes, hx of dementia, hx renal insufficiency, Htn, CAD, CML, DNR status. Pt is somewhat confused on arrival to ED. Answers simple yes and no questions but do question accuracy of answers. Treatments CONDUCTOR/BRAKEMAN: Reports: Other (see below) Other Treatments CONDUCTOR/BRAKEMAN: insulin at bedtime according to pt Lower Buttock Pain Score (Numeric/FACES): 10 - Related Data Allergies Allergy/AdvReac Type Severity Reaction Status Date / Time aspirin AdvReac Severe Bleeding Verified 03/06/21 13:53 Influenza Virus Vaccines AdvReac Severe Anxiety Verified 03/06/21 13:53 Home Meds: Home Meds Furosemide [Lasix] 40 mg PO BID 08/31/15 [History] Losartan Potassium [Cozaar] 50 mg PO DAILY 08/31/15 [History] cloNIDine [Catapres] 0.3 mg PO BID 08/31/15 [History] traZODone 150 mg PO BEDTIME 08/31/15 [History] Nystatin [Nystatin Crm] 1 applic TOP BID PRN 08/30/17 [History] Temazepam 30 mg PO BEDTIME 08/30/17 [History] Carboxymethylcellulose Sodium [Refresh Tears 0.5%] 1 drop EYEBOTH BID 01/19/18 [History] Insulin Degludec [Tresiba] 16 units SQ BEDTIME 01/24/19 [History] Melatonin 5 mg PO BEDTIME 01/24/19 [History] polyethylene glycoL 3350 [Miralax] 17 gm PO DAILY PRN 06/28/19 [History] Levothyroxine [Synthroid] 88 mcg PO DAILY 11/06/19 [History] Sucralfate [Carafate] 1 gm PO QID 11/06/19 [History] Memantine HCl [Namenda] 5 mg PO DAILY 12/31/20 [History] risperiDONE [Risperidone] 4 mg PO BEDTIME 12/31/20 [History] Acetaminophen [Tylenol] 650 mg PO Q4H PRN 03/06/21 [History] Bismuth Subsalicylate [Kaopectate] 1 tab PO ASDIRECTED 03/06/21 [History] Mag Hydrox/Aluminum Hyd/Simeth [Mylanta Maximum Strength Liq] 10 ml PO Q4H PRN 03/06/21 [History] Metoprolol Xl 25 mg PO DAILY 03/06/21 [History] Morphine Sulfate 5 mg PO Q2H PRN 03/06/21 [History] Resperdine 4 mg PO BEDTIME 03/06/21 [History] guaiFENesin [Robitussin] 5 - 10 ml PO Q4H PRN 03/06/21 [History] ondansetron HCL [Zofran] 4 mg PO Q4H PRN 03/06/21 [History] Past Medical History HEENT History: Reports: Impaired Vision, Other (See Below) Other HEENT History: IDIOPATHIC OROFACIAL DYSTONIA. pt wears glasses for abi ding Cardiovascular History: Reports: Heart Failure, High Cholesterol, Hypertension, Other (See Below) Other Cardiovascular History: venous insufficiency, atypical chest pain; angina pectoris inspecified. 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 Neurological History: Reports: Brain Injury, Other (See Below) Other Neuro History: TBI Psychiatric History: Reports: Bipolar, Dementia, Depression, Other (See Below) Other Psychiatric History: INSOMNIA, INTELLECTUAL DISABILTIES Endocrine/Metabolic History: Reports: Diabetes, Type II, Hypothyroidism, Obesity/BMI 30+ Hematologic History: Reports: Anemia, Blood Transfusion(s), Other (See Below) Other Hematologic History: Chronic Myeloid Leukemia Immunologic History: Reports: None Oncologic (Cancer) History: Reports: Leukemia, Other (See Below) Other Oncologic History: Chronic Myeloid Leukemia Dermatologic History: Reports: None - Infectious Disease History Infectious Disease History: Reports: Influenza, MRSA, Novel Coronavirus, Other (See Below) Other Infectious Disease History: MRSA history in Nares - Past Surgical History Head Surgeries/Procedures: Reports: None HEENT Surgical History: Reports: Cataract Surgery, Oral Surgery Cardiovascular Surgical History: Reports: None Respiratory Surgical History: Reports: None GI Surgical History: Reports: Appendectomy, Cholecystectomy, Colonoscopy, EGD Other GI Surgeries/Procedures: EGD/colonoscopy and colon repair 2 weeks ago Female Surgical History: Reports: Tubal Ligation Endocrine Surgical History: Reports: None Neurological Surgical History: Reports: None Musculoskeletal Surgical History: Reports: Other (See Below) Other Musculoskeletal Surgeries/Procedures:: Left leg surgery. Oncologic Surgical History: Reports: Bone Marrow Aspiration Dermatological Surgical History: Reports: None Social & Family History - Family History Family Medical History: No Pertinent Family History - Tobacco Use Tobacco Use Status *Q: Former Tobacco User Used Tobacco, but Quit: Yes Month/Year Tobacco Last Used: 40 - Caffeine Use Caffeine Use: Reports: Coffee, Soda Other Caffeine Use: 3 cups of coffee every day, one can of pop every other day. - Recreational Drug Use Recreational Drug Use: No - Living Situation & Occupation Living situation: Reports: , Assisted Living ([place]) Occupation: Disabled ED ROS GENERAL - Review of Systems Review Of Systems: See Below Constitutional: Denies: Fever, Chills HEENT: Reports: No Symptoms Respiratory: Denies: Shortness of Breath, Cough Cardiovascular: Denies: Chest Pain GI/Abdominal: Reports: Abdominal Pain (mild, gone), Nausea, Vomiting. Denies: Diarrhea : Reports: No Symptoms Musculoskeletal: Denies: Back Pain Skin: Reports: No Symptoms Neurological: Reports: Dizziness, Weakness (generalized, more difficulty caring for self than usual per [place] nursing report) ED EXAM GENERAL NO PERIP PULSE - Physical Exam Exam: See Below General Appearance: Alert, No Apparent Distress Eye Exam: Bilateral Eye: Other (pupils constricted bilat) Ears: Normal External Exam Nose: Normal Inspection Throat/Mouth: Normal Inspection Head: Atraumatic Neck: Supple Respiratory/Chest: No Respiratory Distress, Lungs Clear, Normal Breath Sounds. No: Rhonchi, Wheezing Cardiovascular: Regular Rate, Rhythm GI/Abdominal: Soft, Non-Tender. No: Guarding Back Exam: No: CVA Tenderness (L), CVA Tenderness (R) Extremities: Normal Inspection Neurological: Alert, No Motor/Sensory Deficits, Other (pt pleasantly confused, answers questions and obeys commands) Skin Exam: Warm, Dry, Normal Color Course - Vital Signs Last Recorded V/S: Last Vital Signs Temp 98.6 F 03/06/21 13:56 Pulse 95 03/06/21 13:56 Resp 20 03/06/21 13:56 BP 175/61 H 03/06/21 13:56 Pulse Ox 94 L 03/06/21 13:56 - Orders/Labs/Meds Orders: Active Orders 24 hr Category Date Time Status Insert Londono Catheter [Insert Urinary Catheter] [OM.PC] Care 03/06/21 16:00 Ordered Q24H POC Glucose [Blood Glucose Check, Bedside] [RC] ONETIME Care 03/06/21 17:06 Active Peripheral IV Care [RC] . DIRECTED Care 03/06/21 14:06 Active Urinary Catheter Assessment [RC] ASDIRECTED Care 03/06/21 16:00 Active Head wo Cont [CT] Stat Exams 03/06/21 17:13 Taken Sodium Chloride 0.9% [Normal Saline] 1,000 ml Med 03/06/21 16:00 Active IV ONETIME Sodium Chloride 0.9% [Saline Flush] Med 03/06/21 14:05 Active 10 ml FLUSH ASDIRECTED PRN Peripheral IV Insertion Adult [OM.PC] Stat Oth 03/06/21 14:05 Ordered Medication Orders Diphenhydramine HCl (Diphenhydramine 50 Mg/Ml Sdv) 25 mg IVPUSH Q6H PRN PRN Reason: Itching Diphenhydramine HCl (Diphenhydramine 25 Mg Cap) 25 mg PO Q6H PRN PRN Reason: Itching Sodium Chloride (Normal Saline) 1,000 mls @ 999 mls/hr IV ONETIME CELI Last Admin: 03/06/21 16:19 Dose: 999 mls/hr Documented by: PB Lorazepam (Lorazepam 2 Mg/Ml Sdv) 2 mg IV Q2HR PRN PRN Reason: Anxiety Lorazepam (Lorazepam 2 Mg/Ml Sdv) 2 mg IVPUSH Q2HR PRN PRN Reason: Anxiety Morphine Sulfate (Morphine 2 Mg/Ml Syringe) 2 mg IVPUSH Q2H PRN PRN Reason: Pain (severe 7-10) Morphine Sulfate (Morphine Pf 30 Mg/30 Ml [employer] Vial) 0 mg IV ASDIRECTED CELI; Protocol Naloxone HCl (Naloxone 0.4 Mg/Ml Sdv) 0.4 mg IVPUSH Q3M PRN PRN Reason: Respiratory Depression Ondansetron HCl (Ondansetron 4 Mg Tab.Dis) 4 mg PO Q4H PRN PRN Reason: nausea, able to take PO Ondansetron HCl (Ondansetron 4 Mg/2 Ml Sdv) 4 mg IV Q4H PRN PRN Reason: Nausea/Vomiting Ondansetron HCl (Ondansetron 4 Mg/2 Ml Sdv) 4 mg IVPUSH Q6H PRN PRN Reason: Nausea/Vomiting Sodium Chloride (Sodium Chloride 0.9% 10 Ml Syringe) 10 ml FLUSH ASDIRECTED PRN PRN Reason: Keep Vein Open Last Admin: 03/06/21 14:07 Dose: 10 ml Documented by: PB Labs: Laboratory Tests 03/06/21 03/06/21 03/06/21 Range/Units 14:00 14:00 14:00 WBC 244.31 H* (3.98-10.04) K/mm3 RBC 2.66 L (3.98-5.22) M/mm3 Hgb 9.0 L (11.2-15.7) gm/dl Hct 26.1 L (34.1-44.9) % MCV 98.1 H (79.4-94.8) fl MCH 33.8 H (25.6-32.2) pg MCHC 34.5 (32.2-35.5) g/dl RDW Std Deviation 53.5 H (36.4-46.3) fL Plt Count 184 (182-369) K/mm3 MPV 9.3 L (9.4-12.3) fl Neutrophils % (Manual) 39 L (40-60) % Band Neutrophils % 36 H (0-10) % Lymphocytes % (Manual) 7 L (20-40) % Atypical Lymphs % 0 % Monocytes % (Manual) 1 L (2-10) % Eosinophils % (Manual) 1 (0.7-5.8) % Basophils % (Manual) 1 (0.1-1.2) Metamyelocytes % 2 Myelocytes % 7 Promyelocytes % 6 Platelet Estimate Adequate Plt Morphology Comment Normal Anisocytosis 3+ marked Macrocytosis 2+ moderate Ovalocytes 2+ moderate RBC Morph Comment Abnormal Sodium 124 L D (136-145) mEq/L Potassium 4.5 (3.5-5.1) mEq/L Chloride 90 L (98-107) mEq/L Carbon Dioxide 25 (21-32) mEq/L Anion Gap 13.5 (5-15) BUN 37 H (7-18) mg/dL Creatinine 1.4 H (0.55-1.02) mg/dL Est Cr Clr Drug Dosing TNP Estimated GFR (MDRD) 38 (>60) mL/min BUN/Creatinine Ratio 26.4 H (14-18) Glucose 267 H (70-99) mg/dL POC Glucose (70-99) mg/dL Calcium 9.5 (8.5-10.1) mg/dL Total Bilirubin 0.6 (0.2-1.0) mg/dL AST 44 H (15-37) U/L ALT 31 (14-59) U/L Alkaline Phosphatase 93 (46-116) U/L C-Reactive Protein 0.8 (<1.0) mg/dL Total Protein 8.0 (6.4-8.2) g/dl Albumin 3.5 (3.4-5.0) g/dl Globulin 4.5 gm/dL Albumin/Globulin Ratio 0.8 L (1-2) Lipase (73-393) U/L Urine Color (Yellow) Urine Appearance (Clear) Urine pH (5.0-8.0) Ur Specific [place] (1.005-1.030) Urine Protein (Negative) Urine Glucose (UA) (Negative) Urine Ketones (Negative) Urine Occult Blood (Negative) Urine Nitrite (Negative) Urine Bilirubin (Negative) Urine Urobilinogen (0.2-1.0) Ur Leukocyte Esterase (Negative) Urine RBC (0-5) /hpf Urine WBC (0-5) /hpf Ur Squamous Epith Cells (0-5) /hpf Urine Bacteria (FEW) /hpf Urine Mucus (FEW) /hpf 03/06/21 03/06/21 03/06/21 Range/Units 14:00 14:00 16:13 WBC (3.98-10.04) K/mm3 RBC (3.98-5.22) M/mm3 Hgb (11.2-15.7) gm/dl Hct (34.1-44.9) % MCV (79.4-94.8) fl MCH (25.6-32.2) pg MCHC (32.2-35.5) g/dl RDW Std Deviation (36.4-46.3) fL Plt Count (182-369) K/mm3 MPV (9.4-12.3) fl Neutrophils % (Manual) (40-60) % Band Neutrophils % (0-10) % Lymphocytes % (Manual) (20-40) % Atypical Lymphs % % Monocytes % (Manual) (2-10) % Eosinophils % (Manual) (0.7-5.8) % Basophils % (Manual) (0.1-1.2) Metamyelocytes % Myelocytes % Promyelocytes % Platelet Estimate Plt Morphology Comment Anisocytosis Macrocytosis Ovalocytes RBC Morph Comment Sodium (136-145) mEq/L Potassium (3.5-5.1) mEq/L Chloride (98-107) mEq/L Carbon Dioxide (21-32) mEq/L Anion Gap (5-15) BUN (7-18) mg/dL Creatinine (0.55-1.02) mg/dL Est Cr Clr Drug Dosing Estimated GFR (MDRD) (>60) mL/min BUN/Creatinine Ratio (14-18) Glucose (70-99) mg/dL POC Glucose 262 H (70-99) mg/dL Calcium (8.5-10.1) mg/dL Total Bilirubin (0.2-1.0) mg/dL AST (15-37) U/L ALT (14-59) U/L Alkaline Phosphatase (46-116) U/L C-Reactive Protein (<1.0) mg/dL Total Protein (6.4-8.2) g/dl Albumin (3.4-5.0) g/dl Globulin gm/dL Albumin/Globulin Ratio (1-2) Lipase 79 (73-393) U/L Urine Color Yellow (Yellow) Urine Appearance Clear (Clear) Urine pH 5.5 (5.0-8.0) Ur Specific [place] 1.015 (1.005-1.030) Urine Protein 2+ H (Negative) Urine Glucose (UA) Negative (Negative) Urine Ketones Negative (Negative) Urine Occult Blood Trace-lysed H (Negative) Urine Nitrite Negative (Negative) Urine Bilirubin Negative (Negative) Urine Urobilinogen 0.2 (0.2-1.0) Ur Leukocyte Esterase Negative (Negative) Urine RBC 0-5 (0-5) /hpf Urine WBC 0-5 (0-5) /hpf Ur Squamous Epith Cells 0-5 (0-5) /hpf Urine Bacteria Few (FEW) /hpf Urine Mucus Few (FEW) /hpf 03/06/21 Range/Units 17:10 WBC (3.98-10.04) K/mm3 RBC (3.98-5.22) M/mm3 Hgb (11.2-15.7) gm/dl Hct (34.1-44.9) % MCV (79.4-94.8) fl MCH (25.6-32.2) pg MCHC (32.2-35.5) g/dl RDW Std Deviation (36.4-46.3) fL Plt Count (182-369) K/mm3 MPV (9.4-12.3) fl Neutrophils % (Manual) (40-60) % Band Neutrophils % (0-10) % Lymphocytes % (Manual) (20-40) % Atypical Lymphs % % Monocytes % (Manual) (2-10) % Eosinophils % (Manual) (0.7-5.8) % Basophils % (Manual) (0.1-1.2) Metamyelocytes % Myelocytes % Promyelocytes % Platelet Estimate Plt Morphology Comment Anisocytosis Macrocytosis Ovalocytes RBC Morph Comment Sodium (136-145) mEq/L Potassium (3.5-5.1) mEq/L Chloride (98-107) mEq/L Carbon Dioxide (21-32) mEq/L Anion Gap (5-15) BUN (7-18) mg/dL Creatinine (0.55-1.02) mg/dL Est Cr Clr Drug Dosing Estimated GFR (MDRD) (>60) mL/min BUN/Creatinine Ratio (14-18) Glucose (70-99) mg/dL POC Glucose 214 H (70-99) mg/dL Calcium (8.5-10.1) mg/dL Total Bilirubin (0.2-1.0) mg/dL AST (15-37) U/L ALT (14-59) U/L Alkaline Phosphatase (46-116) U/L C-Reactive Protein (<1.0) mg/dL Total Protein (6.4-8.2) g/dl Albumin (3.4-5.0) g/dl Globulin gm/dL Albumin/Globulin Ratio (1-2) Lipase (73-393) U/L Urine Color (Yellow) Urine Appearance (Clear) Urine pH (5.0-8.0) Ur Specific [place] (1.005-1.030) Urine Protein (Negative) Urine Glucose (UA) (Negative) Urine Ketones (Negative) Urine Occult Blood (Negative) Urine Nitrite (Negative) Urine Bilirubin (Negative) Urine Urobilinogen (0.2-1.0) Ur Leukocyte Esterase (Negative) Urine RBC (0-5) /hpf Urine WBC (0-5) /hpf Ur Squamous Epith Cells (0-5) /hpf Urine Bacteria (FEW) /hpf Urine Mucus (FEW) /hpf Meds: Medications Generic Name Dose Route Start Last Admin Trade Name Freq PRN Reason Stop Dose Admin Diphenhydramine HCl 25 mg 03/06/21 18:24 Diphenhydramine 50 Mg/Ml Sdv IVPUSH Q6H PRN Itching Diphenhydramine HCl 25 mg 03/06/21 18:24 Diphenhydramine 25 Mg Cap PO Q6H PRN Itching Sodium Chloride 1,000 mls @ 999 mls/hr 03/06/21 16:00 03/06/21 16:19 Normal Saline IV 999 mls/hr ONETIME CELI Administration Lorazepam 2 mg 03/06/21 18:19 Lorazepam 2 Mg/Ml Sdv IV Q2HR PRN Anxiety Lorazepam 2 mg 03/06/21 18:23 Lorazepam 2 Mg/Ml Sdv IVPUSH Q2HR PRN Anxiety Morphine Sulfate 2 mg 03/06/21 18:24 Morphine 2 Mg/Ml Syringe IVPUSH Q2H PRN Pain (severe 7-10) Morphine Sulfate 0 mg 03/06/21 18:30 Morphine Pf 30 Mg/30 Ml [employer] Vial IV ASDIRECTED CELI Protocol Naloxone HCl 0.4 mg 03/06/21 18:24 Naloxone 0.4 Mg/Ml Sdv IVPUSH Q3M PRN Respiratory Depression Ondansetron HCl 4 mg 03/06/21 18:19 Ondansetron 4 Mg Tab.Dis PO Q4H PRN nausea, able to take PO Ondansetron HCl 4 mg 03/06/21 18:19 Ondansetron 4 Mg/2 Ml Sdv IV Q4H PRN Nausea/Vomiting Ondansetron HCl 4 mg 03/06/21 18:24 Ondansetron 4 Mg/2 Ml Sdv IVPUSH Q6H PRN Nausea/Vomiting Sodium Chloride 10 ml 03/06/21 14:05 03/06/21 14:07 Sodium Chloride 0.9% 10 Ml Syringe FLUSH 10 ml ASDIRECTED PRN Administration Keep Vein Open Discontinued Medications Generic Name Dose Route Start Last Admin Trade Name Aaron PRN Reason Stop Dose Admin Insulin Human Regular 8 unit 03/06/21 15:50 03/06/21 16:19 Insulin Regular, Human 100 Units/Ml 3 Ml Vial SUBCUT 03/06/21 15:51 8 unit ONETIME ONE Administration Ondansetron HCl 4 mg 03/06/21 15:54 03/06/21 16:19 Ondansetron 4 Mg/2 Ml Sdv IVPUSH 03/06/21 15:55 4 mg ONETIME ONE Administration - Re-Assessments/Exams Free Text/Narrative Re-Assessment/Exam: 03/06/21 17:33 Initial glucose 262, have given insulin 8 units sq., 500 bolus NS, zofran 4 mg IV. After talking to [place] nurse I am informed she did fall and hit her head yesterday morning. Will Ct her head. WBC hthoc124,000. 108,000 9 weeks ago, 168,000 6 weeks ago. I have visited per phone with her sister Beti Sheets who is her power of paper coating supervisor. Beti states states that she was diagnosed with CML about 6 yrs ago. Chemo was stopped per patient decision about 15 months ago due to intolerance of side effects and "bleeding requiring frequent transfusions" She has done quite well up until yesterday. Sister has been told by her provider that "she likely does not have long to live". 03/06/21 18:15. CT of head unfortunately shows multiple areas of hemorrhage within the frontal and temporal lobes compatable with severe contussion injuries of those areas of brain. In addition she has multiple areas of small subdural hematoma. No midline shift. See Radiology report for details. Have discussed this with our Hospitalist paper conservator, Dr Ugarte who is willing to admit her to keep her comfortable and safe. She is expected to from these multiple problems quite soon. I have visited twice with her sister, Beti Sheets who is now aware of the addition problem of the above brain injuries. [facility] [place] [facility] . They will come home immediately. 18:45. Departure - Departure Time of Disposition: 19:54 Disposition: Home, Self-Care 01 Condition: Fair Clinical Impression: Hyperglycemia, Subdural hematoma, CML (chronic myelocytic leukemia) Fall Qualifiers: Encounter type: initial encounter Qualified Code(s): W19.XXXA - Unspecified fall, initial encounter Cerebral hemorrhage following injury Qualifiers: Encounter type: initial encounter Laterality: unspecified laterality Loss of consciousness presence/duration: without LOC Qualified Code(s): S06.360A - Traumatic hemorrhage of cerebrum, unspecified, without loss of consciousness, initial encounter - Discharge Information Sepsis Event Note (ED) - Evaluation Sepsis Screening Result: No Definite Risk - Focused Exam Vital Signs: Vital Signs Temp Pulse Resp BP Pulse Ox 03/06/21 13:56 98.6 F 95 20 175/61 H 94 L ED Communication - Discussed Case With (1) Discussed Case With (1): Admitting Provider (Dr Gonzales, decision to admit at about 18:15) - My Orders Last 24 Hours: My Active Orders 03/06/21 14:05 Sodium Chloride 0.9% [Saline Flush] 10 ml FLUSH ASDIRECTED PRN Peripheral IV Insertion Adult [OM.PC] Stat 03/06/21 14:06 Peripheral IV Care [RC] . DIRECTED 03/06/21 16:00 Insert Londono Catheter [Insert Urinary Catheter] [OM.PC] Q24H Urinary Catheter Assessment [RC] ASDIRECTED Sodium Chloride 0.9% [Normal Saline] 1,000 ml IV ONETIME 03/06/21 17:06 POC Glucose [Blood Glucose Check, Bedside] [RC] ONETIME 03/06/21 17:13 Head wo Cont [CT] Stat - Assessment/Plan Last 24 Hours: My Active Orders 03/06/21 14:05 Sodium Chloride 0.9% [Saline Flush] 10 ml FLUSH ASDIRECTED PRN Peripheral IV Insertion Adult [OM.PC] Stat 03/06/21 14:06 Peripheral IV Care [RC] . DIRECTED 03/06/21 16:00 Insert Londono Catheter [Insert Urinary Catheter] [OM.PC] Q24H Urinary Catheter Assessment [RC] ASDIRECTED Sodium Chloride 0.9% [Normal Saline] 1,000 ml IV ONETIME 03/06/21 17:06 POC Glucose [Blood Glucose Check, Bedside] [RC] ONETIME 03/06/21 17:13 Head wo Cont [CT] Stat
[2021-03-06] MEDS ORDERED: Insulin Regular, Human 100 Units/ML 3 ML Vial SUBCUT ONE (15:50)
[2021-03-06] MEDS ORDERED: Ondansetron 4 MG/2 ML SDV IVPUSH ONE (15:54)
[2021-03-06] MEDS ORDERED: Sodium Chloride 0.9% 1,000 ML IV SCH ×2 (16:00→22:15)
--- NOTE | 2021-03-06 17:30 | CR ---
Abdomen: Supine and upright views of the abdomen was obtained. Comparison: Prior CT abdomen and pelvis study of 01/19/18 and prior abdominal x-ray of 11/25/10. Surgical clips are noted from prior cholecystectomy. Scoliosis is noted within the spine with mild degenerative change. Single surgical clip is noted within the right mid abdomen. Phleboliths are noted within the pelvis. Partially visualized intramedullary paul is noted within the left femur. No free air is seen. Vascular calcification is noted. Bowel gas pattern appears within normal limits. Impression: 1. Numerous findings as noted above which are felt to be incidental. 2. Bowel gas pattern appears normal. Diagnostic code #2
[2021-03-06] MEDS ORDERED: Ondansetron 4 MG/2 ML SDV IV PRN (18:19)
[2021-03-06] MEDS ORDERED: Ondansetron 4 MG Tab.DIS PO PRN (18:19)
[2021-03-06] MEDS ORDERED: LORazepam 2 MG/ML SDV IVPUSH PRN (18:23)
[2021-03-06] MEDS ORDERED: diphenhydrAMINE 50 MG/ML SDV IVPUSH PRN ×2 (18:24→21:57)
[2021-03-06] MEDS ORDERED: Ondansetron 4 MG/2 ML SDV IVPUSH PRN ×2 (18:24→21:57)
[2021-03-06] MEDS ORDERED: Naloxone 0.4 MG/ML SDV IVPUSH PRN ×2 (18:24→21:57)
[2021-03-06] MEDS ORDERED: Morphine 2 MG/ML SYRINGE IVPUSH PRN (18:24)
[2021-03-06] MEDS ORDERED: diphenhydrAMINE 25 MG Cap PO PRN ×2 (18:24→21:57)
[2021-03-06] MEDS ORDERED: Morphine PF 30 MG/30 ML PCA Vial IV SCH ×2 (18:30→23:00)
--- NOTE | 2021-03-06 18:41 | PCM.HP.2 ---
H&P History of Present Illness - General Date of Service: 03/06/21 Admit Problem/Dx: Admission Diagnosis/Problem Admission Diagnosis/Problem Intracranial Bleeds Source of Information: Provider History Limitations: Reports: Altered Mental Status - History of Present Illness Initial Comments - Free Text/Narative: 65-year-old female with a past medical history as listed below which does include CML and taken off chemotherapy 14 months ago who presents to the [facility] emergency department from local long term due to increased confusion, nausea and vomiting, and fall yesterday. Patient unable to answer any questions meaningfully. Will answer yes or no to certain questions. History provided by ER personnel. Patient apparently had an unwitnessed fall yesterday. Since then, the patient has been confused more than her baseline. She has experienced nausea and v omiting. No hematemesis noted. Her blood sugars have been reading higher since that time. She has not been able to function well since the fall. Patient was sent in for further evaluation. 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 Chemistries are notable for hyponatremia and hypochloremia likely due to GI volume loss. Previous discussions with the ER personnel as well as the patient's family originally resulted in a disposition back to her long term to pursue comfort care. It was during these discussions that the ER learned that she had fallen yesterday. This led to a CAT scan of the head which showed multiple intracranial foci of hemorrhage. Patient's prognosis determined very poor. Further conversation had with family notifying them of multiple intracranial foci of hemorrhage. Agreed to admit her to the hospital under DYE WORKER status. Family is on their way. They driving 6 hours in order to come see her. CODE STATUS DYE WORKER. 14 point review of systems unable to be reviewed with the patient. Lower Buttock Pain Score (Numeric/FACES): 10 - Related Data Allergies/Adverse Reactions: Allergies Allergy/AdvReac Type Severity Reaction Status Date / Time aspirin AdvReac Severe Bleeding Verified 03/06/21 13:53 Influenza Virus Vaccines AdvReac Severe Anxiety Verified 03/06/21 13:53 Home Medications: Home Meds Furosemide [Lasix] 40 mg PO BID 08/31/15 [History] Losartan Potassium [Cozaar] 50 mg PO DAILY 08/31/15 [History] cloNIDine [Catapres] 0.3 mg PO BID 08/31/15 [History] traZODone 150 mg PO BEDTIME 08/31/15 [History] Nystatin [Nystatin Crm] 1 applic TOP BID PRN 08/30/17 [History] Temazepam 30 mg PO BEDTIME 08/30/17 [History] Carboxymethylcellulose Sodium [Refresh Tears 0.5%] 1 drop EYEBOTH BID 01/19/18 [History] Insulin Degludec [Tresiba] 16 units SQ BEDTIME 01/24/19 [History] Melatonin 5 mg PO BEDTIME 01/24/19 [History] polyethylene glycoL 3350 [Miralax] 17 gm PO DAILY PRN 06/28/19 [History] Levothyroxine [Synthroid] 88 mcg PO DAILY 11/06/19 [History] Sucralfate [Carafate] 1 gm PO QID 11/06/19 [History] Memantine HCl [Namenda] 5 mg PO DAILY 12/31/20 [History] risperiDONE [Risperidone] 4 mg PO BEDTIME 12/31/20 [History] Acetaminophen [Tylenol] 650 mg PO Q4H PRN 03/06/21 [History] Bismuth Subsalicylate [Kaopectate] 1 tab PO ASDIRECTED 03/06/21 [History] Mag Hydrox/Aluminum Hyd/Simeth [Mylanta Maximum Strength Liq] 10 ml PO Q4H PRN 03/06/21 [History] Metoprolol Xl 25 mg PO DAILY 03/06/21 [History] Morphine Sulfate 5 mg PO Q2H PRN 03/06/21 [History] Resperdine 4 mg PO BEDTIME 03/06/21 [History] guaiFENesin [Robitussin] 5 - 10 ml PO Q4H PRN 03/06/21 [History] ondansetron HCL [Zofran] 4 mg PO Q4H PRN 03/06/21 [History] Past Medical History HEENT History: Reports: Impaired Vision, Other (See Below) Other HEENT History: IDIOPATHIC OROFACIAL DYSTONIA. pt wears glasses for reading Cardiovascular History: Reports: Heart Failure, High Cholesterol, Hypertension, Other (See Below) Other Cardiovascular History: venous insufficiency, atypical chest pain; angina pectoris inspecified. 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 Neurological History: Reports: Brain Injury, Other (See Below) Other Neuro History: TBI Psychiatric History: Reports: Bipolar, Dementia, Depression, Other (See Below) Other Psychiatric History: INSOMNIA, INTELLECTUAL DISABILTIES Endocrine/Metabolic History: Reports: Diabetes, Type II, Hypothyroidism, Obesity/BMI 30+ Hematologic History: Reports: Anemia, Blood Transfusion(s), Other (See Below) Other Hematologic History: Chronic Myeloid Leukemia Immunologic History: Reports: None Oncologic (Cancer) History: Reports: Leukemia, Other (See Below) Other Oncologic History: Chronic Myeloid Leukemia Dermatologic History: Reports: None - Infectious Disease History Infectious Disease History: Reports: Influenza, MRSA, Novel Coronavirus, Other (See Below) Other Infectious Disease History: MRSA history in Nares - Past Surgical History Head Surgeries/Procedures: Reports: None HEENT Surgical History: Reports: Cataract Surgery, Oral Surgery Cardiovascular Surgical History: Reports: None Respiratory Surgical History: Reports: None GI Surgical History: Reports: Appendectomy, Cholecystectomy, Colonoscopy, EGD Other GI Surgeries/Procedures: EGD/colonoscopy and colon repair 2 weeks ago Female Surgical History: Reports: Tubal Ligation Endocrine Surgical History: Reports: None Neurological Surgical History: Reports: None Musculoskeletal Surgical History: Reports: Other (See Below) Other Musculoskeletal Surgeries/Procedures:: Left leg surgery. Oncologic Surgical History: Reports: Bone Marrow Aspiration Dermatological Surgical History: Reports: None Social & Family History - Family History Family Medical History: No Pertinent Family History - Tobacco Use Tobacco Use Status *Q: Former Tobacco User Used Tobacco, but Quit: Yes Month/Year Tobacco Last Used: 40 - Caffeine Use Caffeine Use: Reports: Coffee, Soda Other Caffeine Use: 3 cups of coffee every day, one can of pop every other day. - Recreational Drug Use Recreational Drug Use: No - Living Situation & Occupation Living situation: Reports: , Assisted Living ([facility]) Occupation: Disabled H&P Review of Systems - Review of Systems: Review Of Systems: Unable To Obtain Reason Not Obtained: patient's decreased mental status due to stroke Exam - Exam Exam: See Below - Vital Signs Vital Signs: Last Vital Signs Temp 98.6 F 03/06/21 13:56 Pulse 95 03/06/21 13:56 Resp 20 03/06/21 13:56 BP 175/61 H 03/06/21 13:56 Pulse Ox 94 L 03/06/21 13:56 Weight: 150 lb - Exam Quality Assessment: Supplemental Oxygen HEENT: Conjunctiva Clear, Pupils Equal Neck: Supple Lungs: Clear to Auscultation Cardiovascular: Regular Rate GI/Abdominal Exam: Normal Bowel Sounds, Soft Extremities: Normal Inspection, No Pedal Edema Neuro Extensive - Mental Status: Alert, Opens Eyes to Commands, Slow Response to Commands. No: Oriented x3 Neuro Extensive - Motor, Sensory, Reflexes: CN II-XII Intact - Patient Data Lab Results Last 24 hrs: Laboratory Results - last 24 hr 03/06/21 03/06/21 03/06/21 Range/Units 14:00 14:00 14:00 WBC 244.31 H* (3.98-10.04) K/mm3 RBC 2.66 L (3.98-5.22) M/mm3 Hgb 9.0 L (11.2-15.7) gm/dl Hct 26.1 L (34.1-44.9) % MCV 98.1 H (79.4-94.8) fl MCH 33.8 H (25.6-32.2) pg MCHC 34.5 (32.2-35.5) g/dl RDW Std Deviation 53.5 H (36.4-46.3) fL Plt Count 184 (182-369) K/mm3 MPV 9.3 L (9.4-12.3) fl Neutrophils % (Manual) 39 L (40-60) % Band Neutrophils % 36 H (0-10) % Lymphocytes % (Manual) 7 L (20-40) % Atypical Lymphs % 0 % Monocytes % (Manual) 1 L (2-10) % Eosinophils % (Manual) 1 (0.7-5.8) % Basophils % (Manual) 1 (0.1-1.2) Metamyelocytes % 2 Myelocytes % 7 Promyelocytes % 6 Platelet Estimate Adequate Plt Morphology Comment Normal Anisocytosis 3+ marked Macrocytosis 2+ moderate Ovalocytes 2+ moderate RBC Morph Comment Abnormal Sodium 124 L D (136-145) mEq/L Potassium 4.5 (3.5-5.1) mEq/L Chloride 90 L (98-107) mEq/L Carbon Dioxide 25 (21-32) mEq/L Anion Gap 13.5 (5-15) BUN 37 H (7-18) mg/dL Creatinine 1.4 H (0.55-1.02) mg/dL Est Cr Clr Drug Dosing TNP Estimated GFR (MDRD) 38 (>60) mL/min BUN/Creatinine Ratio 26.4 H (14-18) Glucose 267 H (70-99) mg/dL POC Glucose (70-99) mg/dL Calcium 9.5 (8.5-10.1) mg/dL Total Bilirubin 0.6 (0.2-1.0) mg/dL AST 44 H (15-37) U/L ALT 31 (14-59) U/L Alkaline Phosphatase 93 (46-116) U/L C-Reactive Protein 0.8 (<1.0) mg/dL Total Protein 8.0 (6.4-8.2) g/dl Albumin 3.5 (3.4-5.0) g/dl Globulin 4.5 gm/dL Albumin/Globulin Ratio 0.8 L (1-2) Lipase (73-393) U/L Urine Color (Yellow) Urine Appearance (Clear) Urine pH (5.0-8.0) Ur Specific [place] (1.005-1.030) Urine Protein (Negative) Urine Glucose (UA) (Negative) Urine Ketones (Negative) Urine Occult Blood (Negative) Urine Nitrite (Negative) Urine Bilirubin (Negative) Urine Urobilinogen (0.2-1.0) Ur Leukocyte Esterase (Negative) Urine RBC (0-5) /hpf Urine WBC (0-5) /hpf Ur Squamous Epith Cells (0-5) /hpf Urine Bacteria (FEW) /hpf Urine Mucus (FEW) /hpf 03/06/21 03/06/21 03/06/21 Range/Units 14:00 14:00 16:13 WBC (3.98-10.04) K/mm3 RBC (3.98-5.22) M/mm3 Hgb (11.2-15.7) gm/dl Hct (34.1-44.9) % MCV (79.4-94.8) fl MCH (25.6-32.2) pg MCHC (32.2-35.5) g/dl RDW Std Deviation (36.4-46.3) fL Plt Count (182-369) K/mm3 MPV (9.4-12.3) fl Neutrophils % (Manual) (40-60) % Band Neutrophils % (0-10) % Lymphocytes % (Manual) (20-40) % Atypical Lymphs % % Monocytes % (Manual) (2-10) % Eosinophils % (Manual) (0.7-5.8) % Basophils % (Manual) (0.1-1.2) Metamyelocytes % Myelocytes % Promyelocytes % Platelet Estimate Plt Morphology Comment Anisocytosis Macrocytosis Ovalocytes RBC Morph Comment Sodium (136-145) mEq/L Potassium (3.5-5.1) mEq/L Chloride (98-107) mEq/L Carbon Dioxide (21-32) mEq/L Anion Gap (5-15) BUN (7-18) mg/dL Creatinine (0.55-1.02) mg/dL Est Cr Clr Drug Dosing Estimated GFR (MDRD) (>60) mL/min BUN/Creatinine Ratio (14-18) Glucose (70-99) mg/dL POC Glucose 262 H (70-99) mg/dL Calcium (8.5-10.1) mg/dL Total Bilirubin (0.2-1.0) mg/dL AST (15-37) U/L ALT (14-59) U/L Alkaline Phosphatase (46-116) U/L C-Reactive Protein (<1.0) mg/dL Total Protein (6.4-8.2) g/dl Albumin (3.4-5.0) g/dl Globulin gm/dL Albumin/Globulin Ratio (1-2) Lipase 79 (73-393) U/L Urine Color Yellow (Yellow) Urine Appearance Clear (Clear) Urine pH 5.5 (5.0-8.0) Ur Specific [place] 1.015 (1.005-1.030) Urine Protein 2+ H (Negative) Urine Glucose (UA) Negative (Negative) Urine Ketones Negative (Negative) Urine Occult Blood Trace-lysed H (Negative) Urine Nitrite Negative (Negative) Urine Bilirubin Negative (Negative) Urine Urobilinogen 0.2 (0.2-1.0) Ur Leukocyte Esterase Negative (Negative) Urine RBC 0-5 (0-5) /hpf Urine WBC 0-5 (0-5) /hpf Ur Squamous Epith Cells 0-5 (0-5) /hpf Urine Bacteria Few (FEW) /hpf Urine Mucus Few (FEW) /hpf 03/06/21 Range/Units 17:10 WBC (3.98-10.04) K/mm3 RBC (3.98-5.22) M/mm3 Hgb (11.2-15.7) gm/dl Hct (34.1-44.9) % MCV (79.4-94.8) fl MCH (25.6-32.2) pg MCHC (32.2-35.5) g/dl RDW Std Deviation (36.4-46.3) fL Plt Count (182-369) K/mm3 MPV (9.4-12.3) fl Neutrophils % (Manual) (40-60) % Band Neutrophils % (0-10) % Lymphocytes % (Manual) (20-40) % Atypical Lymphs % % Monocytes % (Manual) (2-10) % Eosinophils % (Manual) (0.7-5.8) % Basophils % (Manual) (0.1-1.2) Metamyelocytes % Myelocytes % Promyelocytes % Platelet Estimate Plt Morphology Comment Anisocytosis Macrocytosis Ovalocytes RBC Morph Comment Sodium (136-145) mEq/L Potassium (3.5-5.1) mEq/L Chloride (98-107) mEq/L Carbon Dioxide (21-32) mEq/L Anion Gap (5-15) BUN (7-18) mg/dL Creatinine (0.55-1.02) mg/dL Est Cr Clr Drug Dosing Estimated GFR (MDRD) (>60) mL/min BUN/Creatinine Ratio (14-18) Glucose (70-99) mg/dL POC Glucose 214 H (70-99) mg/dL Calcium (8.5-10.1) mg/dL Total Bilirubin (0.2-1.0) mg/dL AST (15-37) U/L ALT (14-59) U/L Alkaline Phosphatase (46-116) U/L C-Reactive Protein (<1.0) mg/dL Total Protein (6.4-8.2) g/dl Albumin (3.4-5.0) g/dl Globulin gm/dL Albumin/Globulin Ratio (1-2) Lipase (73-393) U/L Urine Color (Yellow) Urine Appearance (Clear) Urine pH (5.0-8.0) Ur Specific [place] (1.005-1.030) Urine Protein (Negative) Urine Glucose (UA) (Negative) Urine Ketones (Negative) Urine Occult Blood (Negative) Urine Nitrite (Negative) Urine Bilirubin (Negative) Urine Urobilinogen (0.2-1.0) Ur Leukocyte Esterase (Negative) Urine RBC (0-5) /hpf Urine WBC (0-5) /hpf Ur Squamous Epith Cells (0-5) /hpf Urine Bacteria (FEW) /hpf Urine Mucus (FEW) /hpf Result Diagrams: 03/06/21 14:00 03/06/21 14:00 Sepsis Event Note - Evaluation Sepsis Screening Result: No Definite Risk - Focused Exam Vital Signs: Vital Signs Temp Pulse Resp BP Pulse Ox 03/06/21 13:56 98.6 F 95 20 175/61 H 94 L Problem List Initiated/Reviewed/Updated: Yes Orders Last 24hrs: Active Orders 24 hr Category Date Time Status Patient Status [ADT] Routine ADT 03/06/21 18:16 Active Communication Order [RC] PER UNIT ROUTINE Care 03/06/21 18:26 Ordered Insert [place] Catheter [Insert Urinary Catheter] [OM.PC] Care 03/06/21 16:00 Ordered Q24H Oxygen Therapy [RC] PRN Care 03/06/21 18:16 Active PIGMENT MAKING SUPERVISOR Record [RC] Q4H Care 03/06/21 18:26 Ordered POC Glucose [Blood Glucose Check, Bedside] [RC] ONETIME Care 03/06/21 17:06 Active Peripheral IV Care [RC] . DIRECTED Care 03/06/21 14:06 Active Urinary Catheter Assessment [RC] ASDIRECTED Care 03/06/21 16:00 Active VTE/DVT Education [RC] PER UNIT ROUTINE Care 03/06/21 18:16 Active Vital Signs [RC] PER UNIT ROUTINE Care 03/06/21 18:26 Ordered Vital Signs [RC] Q4H Care 03/06/21 18:19 Active Head wo Cont [CT] Stat Exams 03/06/21 17:13 Taken CORONAVIRUS COVID-19 MATTHEW [MOLEC] Stat Lab 03/06/21 18:26 Ordered LORazepam [Ativan] Med 03/06/21 18:19 Active 2 mg IV Q2HR PRN LORazepam [Ativan] Med 03/06/21 18:23 Ordered 2 mg IVPUSH Q2HR PRN Morphine Med 03/06/21 18:24 Ordered 2 mg IVPUSH Q2H PRN Morphine PF [Morphine PIGMENT MAKING SUPERVISOR 30 MG in 30 ML] Med 03/06/21 18:30 Ordered See Protocol IV ASDIRECTED Naloxone [Narcan] Med 03/06/21 18:24 Ordered 0.4 mg IVPUSH Q3M PRN Ondansetron [Zofran ODT] Med 03/06/21 18:19 Active 4 mg PO Q4H PRN Ondansetron [Zofran] Med 03/06/21 18:19 Active 4 mg IV Q4H PRN Ondansetron [Zofran] Med 03/06/21 18:24 Ordered 4 mg IVPUSH Q6H PRN Sodium Chloride 0.9% [Normal Saline] 1,000 ml Med 03/06/21 16:00 Active IV ONETIME Sodium Chloride 0.9% [Saline Flush] Med 03/06/21 14:05 Active 10 ml FLUSH ASDIRECTED PRN diphenhydrAMINE [Benadryl] Med 03/06/21 18:24 Ordered 25 mg IVPUSH Q6H PRN diphenhydrAMINE [Benadryl] Med 03/06/21 18:24 Ordered 25 mg PO Q6H PRN Peripheral IV Insertion Adult [OM.PC] Stat Oth 03/06/21 14:05 Ordered Pulse Oximetry Continuous Monitoring [OM.PC] Routine Oth 03/06/21 18:26 Ordered Resuscitation Status Routine Resus Stat 03/06/21 18:16 Ordered Medication Orders Diphenhydramine HCl (Diphenhydramine 50 Mg/Ml Sdv) 25 mg IVPUSH Q6H PRN PRN Reason: Itching Diphenhydramine HCl (Diphenhydramine 25 Mg Cap) 25 mg PO Q6H PRN PRN Reason: Itching Sodium Chloride (Normal Saline) 1,000 mls @ 999 mls/hr IV ONETIME CELI Last Admin: 03/06/21 16:19 Dose: 999 mls/hr Documented by: PB Lorazepam (Lorazepam 2 Mg/Ml Sdv) 2 mg IV Q2HR PRN PRN Reason: Anxiety Lorazepam (Lorazepam 2 Mg/Ml Sdv) 2 mg IVPUSH Q2HR PRN PRN Reason: Anxiety Morphine Sulfate (Morphine 2 Mg/Ml Syringe) 2 mg IVPUSH Q2H PRN PRN Reason: Pain (severe 7-10) Morphine Sulfate (Morphine Pf 30 Mg/30 Ml Forensic Psychologist Vial) 0 mg IV ASDIRECTED CELI; Protocol Naloxone HCl (Naloxone 0.4 Mg/Ml Sdv) 0.4 mg IVPUSH Q3M PRN PRN Reason: Respiratory Depression Ondansetron HCl (Ondansetron 4 Mg Tab.Dis) 4 mg PO Q4H PRN PRN Reason: nausea, able to take PO Ondansetron HCl (Ondansetron 4 Mg/2 Ml Sdv) 4 mg IV Q4H PRN PRN Reason: Nausea/Vomiting Ondansetron HCl (Ondansetron 4 Mg/2 Ml Sdv) 4 mg IVPUSH Q6H PRN PRN Reason: Nausea/Vomiting Sodium Chloride (Sodium Chloride 0.9% 10 Ml Syringe) 10 ml FLUSH ASDIRECTED PRN PRN Reason: Keep Vein Open Last Admin: 03/06/21 14:07 Dose: 10 ml Documented by: PB Assessment/Plan Comment:: 65-year-old female with an extensive past medical history as listed above who presents to the [facility] emergency department status post fall yesterday, increased confusion, hyperglycemia; found to have multiple intracranial foci of hemorrhage. Patient to be admitted to the hospital under DYE WORKER with end-of-life care. 1. Intracranial bleeding. Admit to the hospitalist service under comfort measures only status. Ativan and morphine to be administered on a as needed basis for now. We will speak with the family when they arrive on scene regarding further end-of-life care. We will likely initiate morphine infusion at that time with supplemental IV push Ativan. Scopolamine patch. Antiemetics as necessary. All other medical comorbidities will not be attended to. None of her maintenance medications will be administered as she will be undergoing end-of-life care. Status: DYE WORKER. DVT prophylaxis will not be provided.
[2021-03-06] MEDS ORDERED: Morphine 100 MG in Sodium Chloride 0.9% 90 ML IV SCH (21:15)
[2021-03-06] MEDS ORDERED: Morphine PF 30 MG/30 ML PCA Vial IV ONE ×2 (22:00→22:15)
[2021-03-06] MEDS: LORazepam 2 MG/ML SDV IV PRN (23:10)
[2021-03-07] MEDS ORDERED: Scopolamine 1.5 MG Transdermal Patch TRDERM PRN (01:10)
[2021-03-07] MEDS: Morphine PF 30 MG/30 ML PCA Vial IV PRN ×4 (01:25→20:59)
[2021-03-07] MEDS: LORazepam 2 MG/ML SDV IV PRN (01:27)
[2021-03-07] MEDS ORDERED: Morphine PF 30 MG/30 ML PCA Vial IV PRN ×2 (01:38→01:43)
[2021-03-07] MEDS ORDERED: LORazepam 2 MG/ML SDV IVPUSH PRN (01:59)
--- NOTE | 2021-03-07 07:28 | PCM.PN ---
- General Info Date of Service: 03/07/21 Admission Dx/Problem (Free Text): Admission Diagnosis/Problem Admission Diagnosis/Problem Intracranial Bleeds Subjective Update: Family arrived at approximately 1 AM overnight. Discussion had regarding further [employer] ME[employer] care. Family agreed for morphine infusion. Patient loaded with 4 mg IV push and then initiated on 4 mg/h. Patient has been comfortable without any signs of discomfort. Also receiving Ativan. Family happy with care thus far. No new nursing concerns. - Patient Data Vitals - Most Recent: Last Vital Signs Temp 99.3 F 03/06/21 23:28 Pulse 128 H 03/06/21 23:28 Resp 20 03/06/21 23:28 BP 159/54 H 03/06/21 23:28 Pulse Ox 96 03/06/21 23:28 Weight - Most Recent: 154 lb 14.4 oz I&O - Last 24 Hours: Intake & Output 03/06/21 03/07/21 03/07/21 22:59 06:59 14:59 Output Total Balance @ Lab Results Last 24 Hours: Laboratory Results - last 24 hr 03/06/21 03/06/21 03/06/21 Range/Units 14:00 14:00 14:00 WBC 244.31 H* (3.98-10.04) K/mm3 RBC 2.66 L (3.98-5.22) M/mm3 Hgb 9.0 L (11.2-15.7) gm/dl Hct 26.1 L (34.1-44.9) % MCV 98.1 H (79.4-94.8) fl MCH 33.8 H (25.6-32.2) pg MCHC 34.5 (32.2-35.5) g/dl RDW Std Deviation 53.5 H (36.4-46.3) fL Plt Count 184 (182-369) K/mm3 MPV 9.3 L (9.4-12.3) fl Neutrophils % (Manual) 39 L (40-60) % Band Neutrophils % 36 H (0-10) % Lymphocytes % (Manual) 7 L (20-40) % Atypical Lymphs % 0 % Monocytes % (Manual) 1 L (2-10) % Eosinophils % (Manual) 1 (0.7-5.8) % Basophils % (Manual) 1 (0.1-1.2) Metamyelocytes % 2 Myelocytes % 7 Promyelocytes % 6 Platelet Estimate Adequate Plt Morphology Comment Normal Anisocytosis 3+ marked Macrocytosis 2+ moderate Ovalocytes 2+ moderate RBC Morph Comment Abnormal Sodium 124 L D (136-145) mEq/L Potassium 4.5 (3.5-5.1) mEq/L Chloride 90 L (98-107) mEq/L Carbon Dioxide 25 (21-32) mEq/L Anion Gap 13.5 (5-15) BUN 37 H (7-18) mg/dL Creatinine 1.4 H (0.55-1.02) mg/dL Est Cr Clr Drug Dosing TNP Estimated GFR (MDRD) 38 (>60) mL/min BUN/Creatinine Ratio 26.4 H (14-18) Glucose 267 H (70-99) mg/dL POC Glucose (70-99) mg/dL Calcium 9.5 (8.5-10.1) mg/dL Total Bilirubin 0.6 (0.2-1.0) mg/dL AST 44 H (15-37) U/L ALT 31 (14-59) U/L Alkaline Phosphatase 93 (46-116) U/L C-Reactive Protein 0.8 (<1.0) mg/dL Total Protein 8.0 (6.4-8.2) g/dl Albumin 3.5 (3.4-5.0) g/dl Globulin 4.5 gm/dL Albumin/Globulin Ratio 0.8 L (1-2) Lipase (73-393) U/L Urine Color (Yellow) Urine Appearance (Clear) Urine pH (5.0-8.0) Ur Specific Tyler (1.005-1.030) Urine Protein (Negative) Urine Glucose (UA) (Negative) Urine Ketones (Negative) Urine Occult Blood (Negative) Urine Nitrite (Negative) Urine Bilirubin (Negative) Urine Urobilinogen (0.2-1.0) Ur Leukocyte Esterase (Negative) Urine RBC (0-5) /hpf Urine WBC (0-5) /hpf Ur Squamous Epith Cells (0-5) /hpf Urine Bacteria (FEW) /hpf Urine Mucus (FEW) /hpf SARS-CoV-2 RNA (MATTHEW) (NEGATIVE) 03/06/21 03/06/21 03/06/21 Range/Units 14:00 14:00 16:13 WBC (3.98-10.04) K/mm3 RBC (3.98-5.22) M/mm3 Hgb (11.2-15.7) gm/dl Hct (34.1-44.9) % MCV (79.4-94.8) fl MCH (25.6-32.2) pg MCHC (32.2-35.5) g/dl RDW Std Deviation (36.4-46.3) fL Plt Count (182-369) K/mm3 MPV (9.4-12.3) fl Neutrophils % (Manual) (40-60) % Band Neutrophils % (0-10) % Lymphocytes % (Manual) (20-40) % Atypical Lymphs % % Monocytes % (Manual) (2-10) % Eosinophils % (Manual) (0.7-5.8) % Basophils % (Manual) (0.1-1.2) Metamyelocytes % Myelocytes % Promyelocytes % Platelet Estimate Plt Morphology Comment Anisocytosis Macrocytosis Ovalocytes RBC Morph Comment Sodium (136-145) mEq/L Potassium (3.5-5.1) mEq/L Chloride (98-107) mEq/L Carbon Dioxide (21-32) mEq/L Anion Gap (5-15) BUN (7-18) mg/dL Creatinine (0.55-1.02) mg/dL Est Cr Clr Drug Dosing Estimated GFR (MDRD) (>60) mL/min BUN/Creatinine Ratio (14-18) Glucose (70-99) mg/dL POC Glucose 262 H (70-99) mg/dL Calcium (8.5-10.1) mg/dL Total Bilirubin (0.2-1.0) mg/dL AST (15-37) U/L ALT (14-59) U/L Alkaline Phosphatase (46-116) U/L C-Reactive Protein (<1.0) mg/dL Total Protein (6.4-8.2) g/dl Albumin (3.4-5.0) g/dl Globulin gm/dL Albumin/Globulin Ratio (1-2) Lipase 79 (73-393) U/L Urine Color Yellow (Yellow) Urine Appearance Clear (Clear) Urine pH 5.5 (5.0-8.0) Ur Specific Tyler 1.015 (1.005-1.030) Urine Protein 2+ H (Negative) Urine Glucose (UA) Negative (Negative) Urine Ketones Negative (Negative) Urine Occult Blood Trace-lysed H (Negative) Urine Nitrite Negative (Negative) Urine Bilirubin Negative (Negative) Urine Urobilinogen 0.2 (0.2-1.0) Ur Leukocyte Esterase Negative (Negative) Urine RBC 0-5 (0-5) /hpf Urine WBC 0-5 (0-5) /hpf Ur Squamous Epith Cells 0-5 (0-5) /hpf Urine Bacteria Few (FEW) /hpf Urine Mucus Few (FEW) /hpf SARS-CoV-2 RNA (MATTHEW) (NEGATIVE) 03/06/21 03/06/21 Range/Units 17:10 18:25 WBC (3.98-10.04) K/mm3 RBC (3.98-5.22) M/mm3 Hgb (11.2-15.7) gm/dl Hct (34.1-44.9) % MCV (79.4-94.8) fl MCH (25.6-32.2) pg MCHC (32.2-35.5) g/dl RDW Std Deviation (36.4-46.3) fL Plt Count (182-369) K/mm3 MPV (9.4-12.3) fl Neutrophils % (Manual) (40-60) % Band Neutrophils % (0-10) % Lymphocytes % (Manual) (20-40) % Atypical Lymphs % % Monocytes % (Manual) (2-10) % Eosinophils % (Manual) (0.7-5.8) % Basophils % (Manual) (0.1-1.2) Metamyelocytes % Myelocytes % Promyelocytes % Platelet Estimate Plt Morphology Comment Anisocytosis Macrocytosis Ovalocytes RBC Morph Comment Sodium (136-145) mEq/L Potassium (3.5-5.1) mEq/L Chloride (98-107) mEq/L Carbon Dioxide (21-32) mEq/L Anion Gap (5-15) BUN (7-18) mg/dL Creatinine (0.55-1.02) mg/dL Est Cr Clr Drug Dosing Estimated GFR (MDRD) (>60) mL/min BUN/Creatinine Ratio (14-18) Glucose (70-99) mg/dL POC Glucose 214 H (70-99) mg/dL Calcium (8.5-10.1) mg/dL Total Bilirubin (0.2-1.0) mg/dL AST (15-37) U/L ALT (14-59) U/L Alkaline Phosphatase (46-116) U/L C-Reactive Protein (<1.0) mg/dL Total Protein (6.4-8.2) g/dl Albumin (3.4-5.0) g/dl Globulin gm/dL Albumin/Globulin Ratio (1-2) Lipase (73-393) U/L Urine Color (Yellow) Urine Appearance (Clear) Urine pH (5.0-8.0) Ur Specific Tyler (1.005-1.030) Urine Protein (Negative) Urine Glucose (UA) (Negative) Urine Ketones (Negative) Urine Occult Blood (Negative) Urine Nitrite (Negative) Urine Bilirubin (Negative) Urine Urobilinogen (0.2-1.0) Ur Leukocyte Esterase (Negative) Urine RBC (0-5) /hpf Urine WBC (0-5) /hpf Ur Squamous Epith Cells (0-5) /hpf Urine Bacteria (FEW) /hpf Urine Mucus (FEW) /hpf SARS-CoV-2 RNA (MATTHEW) Negative (NEGATIVE) Med Orders - Current: Current Medications Diphenhydramine HCl (Diphenhydramine 25 Mg Cap) 25 mg PO Q6H PRN PRN Reason: Itching Sodium Chloride (Normal Saline) 1,000 mls @ 30 mls/hr IV ASDIRECTED CELI Lorazepam (Lorazepam 2 Mg/Ml Sdv) 2 mg IVPUSH Q2H PRN PRN Reason: Anxiety Miscellaneous Information (Remove Scopalamine Patch) 1 ea TRDERM Q72H PRN PRN Reason: WHEN SCOPALAMINE PATCH IS ORDE Morphine Sulfate (Morphine Pf 30 Mg/30 Ml Cdl Flatbed Truck Driver Vial) 0 mg IV ASDIRECTED PRN; Protocol PRN Reason: Pain Ondansetron HCl (Ondansetron 4 Mg/2 Ml Sdv) 4 mg IVPUSH Q6H PRN PRN Reason: Nausea/Vomiting Scopolamine (Scopolamine 1.5 Mg Transdermal Patch) 1.5 mg TRDERM Q72H PRN PRN Reason: secretions Last Admin: 03/07/21 01:36 Dose: 1.5 mg Documented by: Sodium Chloride (Sodium Chloride 0.9% 10 Ml Syringe) 10 ml FLUSH ASDIRECTED PRN PRN Reason: Keep Vein Open Last Admin: 03/06/21 14:07 Dose: 10 ml Documented by: Discontinued Medications Diphenhydramine HCl (Diphenhydramine 50 Mg/Ml Sdv) 25 mg IVPUSH Q6H PRN PRN Reason: Itching Diphenhydramine HCl (Diphenhydramine 25 Mg Cap) 25 mg PO Q6H PRN PRN Reason: Itching Diphenhydramine HCl (Diphenhydramine 50 Mg/Ml Sdv) 25 mg IVPUSH Q6H PRN PRN Reason: Itching Sodium Chloride (Normal Saline) 1,000 mls @ 999 mls/hr IV ONETIME CELI Last Admin: 03/06/21 16:19 Dose: 999 mls/hr Documented by: Morphine Sulfate 100 mg/ (Sodium Chloride) 100 mls @ 2 mls/hr IV TITRATE CELI Insulin Human Regular (Insulin Regular, Human 100 Units/Ml 3 Ml Vial) 8 unit SUBCUT ONETIME ONE Stop: 03/06/21 15:51 Last Admin: 03/06/21 16:19 Dose: 8 unit Documented by: Lorazepam (Lorazepam 2 Mg/Ml Sdv) 2 mg IV Q2HR PRN PRN Reason: Anxiety Last Admin: 03/07/21 01:27 Dose: 2 mg Documented by: Lorazepam (Lorazepam 2 Mg/Ml Sdv) 2 mg IVPUSH Q2HR PRN PRN Reason: Anxiety Morphine Sulfate (Morphine 2 Mg/Ml Syringe) 2 mg IVPUSH Q2H PRN PRN Reason: Pain (severe 7-10) Morphine Sulfate (Morphine Pf 30 Mg/30 Ml Cdl Flatbed Truck Driver Vial) 0 mg IV ASDIRECTED ONE; Protocol Stop: 03/06/21 22:01 Morphine Sulfate (Morphine Pf 30 Mg/30 Ml Cdl Flatbed Truck Driver Vial) 0 mg IV ASDIRECTED ONE; Protocol Stop: 03/06/21 22:16 Morphine Sulfate (Morphine Pf 30 Mg/30 Ml Cdl Flatbed Truck Driver Vial) 0 mg IV ASDIRECTED CELI; Protocol Morphine Sulfate (Morphine Pf 30 Mg/30 Ml Cdl Flatbed Truck Driver Vial) 0 mg IV ASDIRECTED PRN; Protocol PRN Reason: Pain Morphine Sulfate (Morphine Pf 30 Mg/30 Ml Cdl Flatbed Truck Driver Vial) 0 mg IV ASDIRECTED PRN; Protocol PRN Reason: Pain Naloxone HCl (Naloxone 0.4 Mg/Ml Sdv) 0.4 mg IVPUSH Q3M PRN PRN Reason: Respiratory Depression Naloxone HCl (Naloxone 0.4 Mg/Ml Sdv) 0.4 mg IVPUSH Q3M PRN PRN Reason: Respiratory Depression Ondansetron HCl (Ondansetron 4 Mg/2 Ml Sdv) 4 mg IVPUSH ONETIME ONE Stop: 03/06/21 15:55 Last Admin: 03/06/21 16:19 Dose: 4 mg Documented by: Ondansetron HCl (Ondansetron 4 Mg Tab.Dis) 4 mg PO Q4H PRN PRN Reason: nausea, able to take PO Ondansetron HCl (Ondansetron 4 Mg/2 Ml Sdv) 4 mg IV Q4H PRN PRN Reason: Nausea/Vomiting Ondansetron HCl (Ondansetron 4 Mg/2 Ml Sdv) 4 mg IVPUSH Q6H PRN PRN Reason: Nausea/Vomiting - Exam Urinary Catheter Total Time: 0Days 0Hours General: Other (Sleeping, and comfortable.) Lungs: Normal Respiratory Effort Cardiovascular: Regular Rate GI/Abdominal Exam: Soft - Patient Data Lab Results Last 24 hrs: Laboratory Results - last 24 hr 03/06/21 03/06/21 03/06/21 Range/Units 14:00 14:00 14:00 WBC 244.31 H* (3.98-10.04) K/mm3 RBC 2.66 L (3.98-5.22) M/mm3 Hgb 9.0 L (11.2-15.7) gm/dl Hct 26.1 L (34.1-44.9) % MCV 98.1 H (79.4-94.8) fl MCH 33.8 H (25.6-32.2) pg MCHC 34.5 (32.2-35.5) g/dl RDW Std Deviation 53.5 H (36.4-46.3) fL Plt Count 184 (182-369) K/mm3 MPV 9.3 L (9.4-12.3) fl Neutrophils % (Manual) 39 L (40-60) % Band Neutrophils % 36 H (0-10) % Lymphocytes % (Manual) 7 L (20-40) % Atypical Lymphs % 0 % Monocytes % (Manual) 1 L (2-10) % Eosinophils % (Manual) 1 (0.7-5.8) % Basophils % (Manual) 1 (0.1-1.2) Metamyelocytes % 2 Myelocytes % 7 Promyelocytes % 6 Platelet Estimate Adequate Plt Morphology Comment Normal Anisocytosis 3+ marked Macrocytosis 2+ moderate Ovalocytes 2+ moderate RBC Morph Comment Abnormal Sodium 124 L D (136-145) mEq/L Potassium 4.5 (3.5-5.1) mEq/L Chloride 90 L (98-107) mEq/L Carbon Dioxide 25 (21-32) mEq/L Anion Gap 13.5 (5-15) BUN 37 H (7-18) mg/dL Creatinine 1.4 H (0.55-1.02) mg/dL Est Cr Clr Drug Dosing TNP Estimated GFR (MDRD) 38 (>60) mL/min BUN/Creatinine Ratio 26.4 H (14-18) Glucose 267 H (70-99) mg/dL POC Glucose (70-99) mg/dL Calcium 9.5 (8.5-10.1) mg/dL Total Bilirubin 0.6 (0.2-1.0) mg/dL AST 44 H (15-37) U/L ALT 31 (14-59) U/L Alkaline Phosphatase 93 (46-116) U/L C-Reactive Protein 0.8 (<1.0) mg/dL Total Protein 8.0 (6.4-8.2) g/dl Albumin 3.5 (3.4-5.0) g/dl Globulin 4.5 gm/dL Albumin/Globulin Ratio 0.8 L (1-2) Lipase (73-393) U/L Urine Color (Yellow) Urine Appearance (Clear) Urine pH (5.0-8.0) Ur Specific Tyler (1.005-1.030) Urine Protein (Negative) Urine Glucose (UA) (Negative) Urine Ketones (Negative) Urine Occult Blood (Negative) Urine Nitrite (Negative) Urine Bilirubin (Negative) Urine Urobilinogen (0.2-1.0) Ur Leukocyte Esterase (Negative) Urine RBC (0-5) /hpf Urine WBC (0-5) /hpf Ur Squamous Epith Cells (0-5) /hpf Urine Bacteria (FEW) /hpf Urine Mucus (FEW) /hpf SARS-CoV-2 RNA (MATTHEW) (NEGATIVE) 03/06/21 03/06/21 03/06/21 Range/Units 14:00 14:00 16:13 WBC (3.98-10.04) K/mm3 RBC (3.98-5.22) M/mm3 Hgb (11.2-15.7) gm/dl Hct (34.1-44.9) % MCV (79.4-94.8) fl MCH (25.6-32.2) pg MCHC (32.2-35.5) g/dl RDW Std Deviation (36.4-46.3) fL Plt Count (182-369) K/mm3 MPV (9.4-12.3) fl Neutrophils % (Manual) (40-60) % Band Neutrophils % (0-10) % Lymphocytes % (Manual) (20-40) % Atypical Lymphs % % Monocytes % (Manual) (2-10) % Eosinophils % (Manual) (0.7-5.8) % Basophils % (Manual) (0.1-1.2) Metamyelocytes % Myelocytes % Promyelocytes % Platelet Estimate Plt Morphology Comment Anisocytosis Macrocytosis Ovalocytes RBC Morph Comment Sodium (136-145) mEq/L Potassium (3.5-5.1) mEq/L Chloride (98-107) mEq/L Carbon Dioxide (21-32) mEq/L Anion Gap (5-15) BUN (7-18) mg/dL Creatinine (0.55-1.02) mg/dL Est Cr Clr Drug Dosing Estimated GFR (MDRD) (>60) mL/min BUN/Creatinine Ratio (14-18) Glucose (70-99) mg/dL POC Glucose 262 H (70-99) mg/dL Calcium (8.5-10.1) mg/dL Total Bilirubin (0.2-1.0) mg/dL AST (15-37) U/L ALT (14-59) U/L Alkaline Phosphatase (46-116) U/L C-Reactive Protein (<1.0) mg/dL Total Protein (6.4-8.2) g/dl Albumin (3.4-5.0) g/dl Globulin gm/dL Albumin/Globulin Ratio (1-2) Lipase 79 (73-393) U/L Urine Color Yellow (Yellow) Urine Appearance Clear (Clear) Urine pH 5.5 (5.0-8.0) Ur Specific Tyler 1.015 (1.005-1.030) Urine Protein 2+ H (Negative) Urine Glucose (UA) Negative (Negative) Urine Ketones Negative (Negative) Urine Occult Blood Trace-lysed H (Negative) Urine Nitrite Negative (Negative) Urine Bilirubin Negative (Negative) Urine Urobilinogen 0.2 (0.2-1.0) Ur Leukocyte Esterase Negative (Negative) Urine RBC 0-5 (0-5) /hpf Urine WBC 0-5 (0-5) /hpf Ur Squamous Epith Cells 0-5 (0-5) /hpf Urine Bacteria Few (FEW) /hpf Urine Mucus Few (FEW) /hpf SARS-CoV-2 RNA (MATTHEW) (NEGATIVE) 03/06/21 03/06/21 Range/Units 17:10 18:25 WBC (3.98-10.04) K/mm3 RBC (3.98-5.22) M/mm3 Hgb (11.2-15.7) gm/dl Hct (34.1-44.9) % MCV (79.4-94.8) fl MCH (25.6-32.2) pg MCHC (32.2-35.5) g/dl RDW Std Deviation (36.4-46.3) fL Plt Count (182-369) K/mm3 MPV (9.4-12.3) fl Neutrophils % (Manual) (40-60) % Band Neutrophils % (0-10) % Lymphocytes % (Manual) (20-40) % Atypical Lymphs % % Monocytes % (Manual) (2-10) % Eosinophils % (Manual) (0.7-5.8) % Basophils % (Manual) (0.1-1.2) Metamyelocytes % Myelocytes % Promyelocytes % Platelet Estimate Plt Morphology Comment Anisocytosis Macrocytosis Ovalocytes RBC Morph Comment Sodium (136-145) mEq/L Potassium (3.5-5.1) mEq/L Chloride (98-107) mEq/L Carbon Dioxide (21-32) mEq/L Anion Gap (5-15) BUN (7-18) mg/dL Creatinine (0.55-1.02) mg/dL Est Cr Clr Drug Dosing Estimated GFR (MDRD) (>60) mL/min BUN/Creatinine Ratio (14-18) Glucose (70-99) mg/dL POC Glucose 214 H (70-99) mg/dL Calcium (8.5-10.1) mg/dL Total Bilirubin (0.2-1.0) mg/dL AST (15-37) U/L ALT (14-59) U/L Alkaline Phosphatase (46-116) U/L C-Reactive Protein (<1.0) mg/dL Total Protein (6.4-8.2) g/dl Albumin (3.4-5.0) g/dl Globulin gm/dL Albumin/Globulin Ratio (1-2) Lipase (73-393) U/L Urine Color (Yellow) Urine Appearance (Clear) Urine pH (5.0-8.0) Ur Specific Tyler (1.005-1.030) Urine Protein (Negative) Urine Glucose (UA) (Negative) Urine Ketones (Negative) Urine Occult Blood (Negative) Urine Nitrite (Negative) Urine Bilirubin (Negative) Urine Urobilinogen (0.2-1.0) Ur Leukocyte Esterase (Negative) Urine RBC (0-5) /hpf Urine WBC (0-5) /hpf Ur Squamous Epith Cells (0-5) /hpf Urine Bacteria (FEW) /hpf Urine Mucus (FEW) /hpf SARS-CoV-2 RNA (MATTHEW) Negative (NEGATIVE) Result Diagrams: 03/06/21 14:00 03/06/21 14:00 Sepsis Event Note - Evaluation Sepsis Screening Result: No Definite Risk - Focused Exam Vital Signs: Vital Signs Temp Pulse Resp BP Pulse Ox 03/06/21 23:28 99.3 F 128 H 20 159/54 H 96 03/06/21 19:44 98.8 F 101 H 18 175/46 H 96 - Problem List Review Problem List Initiated/Reviewed/Updated: Yes - My Orders Last 24 Hours: My Active Orders 03/06/21 18:16 Patient Status [ADT] Routine Oxygen Therapy [RC] PRN VTE/DVT Education [RC] 10,22 Resuscitation Status Routine 03/06/21 18:26 Communication Order [RC] PER UNIT ROUTINE Pulse Oximetry Continuous Monitoring [OM.PC] Routine 03/06/21 21:57 Ondansetron [Zofran] 4 mg IVPUSH Q6H PRN diphenhydrAMINE [Benadryl] 25 mg PO Q6H PRN 03/06/21 22:00 Communication Order [RC] PER UNIT ROUTINE COMPOSING ROOM SUPERVISOR Record [RC] Q4H Vital Signs [RC] QSHIFT 03/06/21 22:15 Sodium Chloride 0.9% [Normal Saline] 1,000 ml IV ASDIRECTED 03/07/21 01:10 Scopolamine [Transderm-Scop] 1.5 mg TRDERM Q72H PRN 03/07/21 01:15 Remove Patch 1 ea TRDERM Q72H PRN 03/07/21 01:59 LORazepam [Ativan] 2 mg IVPUSH Q2H PRN 03/07/21 03:22 Morphine PF [Morphine COMPOSING ROOM SUPERVISOR 30 MG in 30 ML] See Protocol IV ASDIRECTED PRN 03/07/21 Breakfast NPO Now [Nothing per Oral Now Diet] [DIET] - Plan Plan:: 65-year-old female with an extensive past medical history as listed above who presents to the [facility] emergency department status post fall yesterday, increased confusion, hyperglycemia; found to have multiple intracranial foci of hemorrhage. Patient admitted to the hospital under [employer]CH[employer]IC status with end-of-life care. 1. Intracranial bleeding. Patient under [employer] MECH[employer]IC status. Undergoing end-of-life care. Continue morphine infusion at current settings. As needed Ativan for agonal breathing. Scopolamine patch. Family at bedside. 2. 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 Plan as per problem #1. Status: [employer]QUIP[employer] MECH[employer]IC. DVT prophylaxis will not be provided.
[2021-03-07 09:28] VITALS: BP 136/38; PULSE 80
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
--- NOTE | 2021-03-08 11:02 | PCM.DCSUM1 ---
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 Patient admitted to the hospital under PERSONAL SUPPORT WORKER status with end-of-life care. 1. Intracranial bleeding. Patient was directly admitted to the hospital under PERSONAL SUPPORT WORKER status after conversatio n with family regarding poor prognosis. Patient was administered Ativan and morphine infusion to keep the patient comfortable. She was also provided a scopolamine patch. Family was able to be by her side after being admitted. The patient roughly 24 hours later at 2308 on 03/07/2021. Patient pronounced by nursing and exam was performed by nursing. certificate completed electronically. death claim examiner did not need to be notified. Patient disposition to [facility] in [facility] according to family wishes. Family declined option for autopsy. 2. 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 Status: PERSONAL SUPPORT WORKER. DVT prophylaxis will not be provided. HPI Initial Comments: 65-year-old female with a past medical history as listed below which does include CML and taken off chemotherapy 14 months ago who presents to the [facility] emergency department from local half-way due to increased confusion, nausea and vomiting, and fall yesterday. Patient unable to answer any questions meaningfully. Will answer yes or no to certain questions. History provided by ER personnel. Patient apparently had an unwitnessed fall yesterday. Since then, the patient has been confused more than her baseline. She has experienced nausea and vomiting. No hematemesis noted. Her blood sugars have been reading higher since that time. She has not been able to function well since the fall. Patient was sent in for further evaluation. 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 Chemistries are notable for hyponatremia and hypochloremia likely due to GI volume loss. Previous discussions with the ER personnel as well as the patient's family originally resulted in a disposition back to her half-way to pursue comfort care. It was during these discussions that the ER learned that she had fallen yesterday. This led to a CAT scan of the head which showed multiple intracranial foci of hemorrhage. Patient's prognosis determined very poor. Further conversation had with family notifying them of multiple intracranial foci of hemorrhage. Agreed to admit her to the hospital under PERSONAL SUPPORT WORKER status. Family is on their way. They driving 6 hours in order to come see her. CODE STATUS PERSONAL SUPPORT WORKER. 14 point review of systems unable to be reviewed with the patient. Lower Buttock Pain Score (Numeric/FACES): 10 - Related Data Allergies/Adverse Reactions: Allergies Allergy/AdvReac Type Severity Reaction Status Date / Time aspirin AdvReac Severe Bleeding Verified 03/06/21 13:53 Influenza Virus Vaccines AdvReac Severe Anxiety Verified 03/06/21 13:53 Home Medications: Home Meds Furosemide [Lasix] 40 mg PO BID 08/31/15 [History] Losartan Potassium [Cozaar] 50 mg PO DAILY 08/31/15 [History] cloNIDine [Catapres] 0.3 mg PO BID 08/31/15 [History] traZODone 150 mg PO BEDTIME 08/31/15 [History] Nystatin [Nystatin Crm] 1 applic TOP BID PRN 08/30/17 [History] Temazepam 30 mg PO BEDTIME 08/30/17 [History] Carboxymethylcellulose Sodium [Refresh Tears 0.5%] 1 drop EYEBOTH BID 01/19/18 [History] Insulin Degludec [Tresiba] 16 units SQ BEDTIME 01/24/19 [History] Melatonin 5 mg PO BEDTIME 01/24/19 [History] polyethylene glycoL 3350 [Miralax] 17 gm PO DAILY PRN 06/28/19 [History] Levothyroxine [Synthroid] 88 mcg PO DAILY 11/06/19 [History] Sucralfate [Carafate] 1 gm PO QID 11/06/19 [History] Memantine HCl [Namenda] 5 mg PO DAILY 12/31/20 [History] risperiDONE [Risperidone] 4 mg PO BEDTIME 12/31/20 [History] Acetaminophen [Tylenol] 650 mg PO Q4H PRN 03/06/21 [History] Bismuth Subsalicylate [Kaopectate] 1 tab PO ASDIRECTED 03/06/21 [History] Mag Hydrox/Aluminum Hyd/Simeth [Mylanta Maximum Strength Liq] 10 ml PO Q4H PRN 03/06/21 [History] Metoprolol Xl 25 mg PO DAILY 03/06/21 [History] Morphine Sulfate 5 mg PO Q2H PRN 03/06/21 [History] Resperdine 4 mg PO BEDTIME 03/06/21 [History] guaiFENesin [Robitussin] 5 - 10 ml PO Q4H PRN 03/06/21 [History] ondansetron HCL [Zofran] 4 mg PO Q4H PRN 03/06/21 [History] Past Medical History HEENT History: Reports: Impaired Vision, Other (See Below) Other HEENT History: IDIOPATHIC OROFACIAL DYSTONIA. pt wears glasses for reading Cardiovascular History: Reports: Heart Failure, High Cholesterol, Hypertension, Other (See Below) Other Cardiovascular History: venous insufficiency, atypical chest pain; angina pectoris inspecified. Respiratory History: Reports: None Gastrointestinal History: Reports: GERD Other Gastrointestinal History: obesity, ascites Genitourinary History: Reports: Chronic Renal Insuffiency Other Genitourinary History: RIGHT RENAL ARTERY STENOSIS, CKD III FAMILY DAY CARER History: Reports: None Musculoskeletal History: Reports: Fracture Other Musculoskeletal History: fx two bones in foot 2.5yrs ago. Neurological History: Reports: Brain Injury, Other (See Below) Other Neuro History: TBI Psychiatric History: Reports: Bipolar, Dementia, Depression, Other (See Below) Other Psychiatric History: INSOMNIA, INTELLECTUAL DISABILTIES Endocrine/Metabolic History: Reports: Diabetes, Type II, Hypothyroidism, Obesity/BMI 30+ Hematologic History: Reports: Anemia, Blood Transfusion(s), Other (See Below) Other Hematologic History: Chronic Myeloid Leukemia Immunologic History: Reports: None Oncologic (Cancer) History: Reports: Leukemia, Other (See Below) Other Oncologic History: Chronic Myeloid Leukemia Dermatologic History: Reports: None - Infectious Disease History Infectious Disease History: Reports: Influenza, MRSA, Novel Coronavirus, Other (See Below) Other Infectious Disease History: MRSA history in Nares - Past Surgical History Head Surgeries/Procedures: Reports: None HEENT Surgical History: Reports: Cataract Surgery, Oral Surgery Cardiovascular Surgical History: Reports: None Respiratory Surgical History: Reports: None GI Surgical History: Reports: Appendectomy, Cholecystectomy, Colonoscopy, EGD Other GI Surgeries/Procedures: EGD/colonoscopy and colon repair 2 weeks ago Female Surgical History: Reports: Tubal Ligation Endocrine Surgical History: Reports: None Neurological Surgical History: Reports: None Musculoskeletal Surgical History: Reports: Other (See Below) Other Musculoskeletal Surgeries/Procedures:: Left leg surgery. Oncologic Surgical History: Reports: Bone Marrow Aspiration Dermatological Surgical History: Reports: None Social & Family History - Family History Family Medical History: No Pertinent Family History - Tobacco Use Tobacco Use Status *Q: Former Tobacco User Used Tobacco, but Quit: Yes Month/Year Tobacco Last Used: 40 - Caffeine Use Caffeine Use: Reports: Coffee, Soda Other Caffeine Use: 3 cups of coffee every day, one can of pop every other day. - Recreational Drug Use Recreational Drug Use: No - Living Situation & Occupation Living situation: Reports: , Assisted Living ([facility]) Occupation: Disabled H&P Review of Systems - Review of Systems: Review Of Systems: Unable To Obtain Reason Not Obtained: patient's decreased mental status due to stroke Exam - Exam Exam: See Below - Vital Signs Vital Signs: Last Vital Signs Temp 98.6 F 03/06/21 13:56 Pulse 95 03/06/21 13:56 Resp 20 03/06/21 13:56 BP 175/61 H 03/06/21 13:56 Pulse Ox 94 L 03/06/21 13:56 Weight: 150 lb - Exam Quality Assessment: Supplemental Oxygen HEENT: Conjunctiva Clear, Pupils Equal Neck: Supple Lungs: Clear to Auscultation Cardiovascular: Regular Rate GI/Abdominal Exam: Normal Bowel Sounds, Soft Extremities: Normal Inspection, No Pedal Edema Neuro Extensive - Mental Status: Alert, Opens Eyes to Commands, Slow Response to Commands. No: Oriented x3 Neuro Extensive - Motor, Sensory, Reflexes: CN II-XII Intact - Discharge Data Discharge Date: 03/08/21 Discharge Disposition: 20 Preliminary Cause of *Q: Other_Special Instruction (Intracranial hemorrhages.) Condition: - Referral to Home Health Primary Care Physician: Luís Cespedes MD - Discharge Plan *PRESCRIPTION DRUG MONITORING PROGRAM REVIEWED*: Not Applicable *COPY OF PRESCRIPTION DRUG MONITORING REPORT IN PATIENT KAELA: Not Applicable Home Medications: Home Meds Furosemide [Lasix] 40 mg PO BID 08/31/15 [History] Losartan Potassium [Cozaar] 50 mg PO DAILY 08/31/15 [History] cloNIDine [Catapres] 0.3 mg PO BID 08/31/15 [History] traZODone 150 mg PO BEDTIME 08/31/15 [History] Nystatin [Nystatin Crm] 1 applic TOP BID PRN 08/30/17 [History] Temazepam 30 mg PO BEDTIME 08/30/17 [History] Carboxymethylcellulose Sodium [Refresh Tears 0.5%] 1 drop EYEBOTH BID 01/19/18 [History] Insulin Degludec [Tresiba] 16 units SQ BEDTIME 01/24/19 [History] Melatonin 5 mg PO BEDTIME 01/24/19 [History] polyethylene glycoL 3350 [Miralax] 17 gm PO DAILY 06/28/19 [History] Levothyroxine [Synthroid] 88 mcg PO DAILY 11/06/19 [History] Sucralfate [Carafate] 1 gm PO QID 11/06/19 [History] Memantine HCl [Namenda] 5 mg PO DAILY 12/31/20 [History] risperiDONE [Risperidone] 4 mg PO BEDTIME 12/31/20 [History] Acetaminophen [Tylenol] 650 mg PO Q4H PRN 03/06/21 [History] Bismuth Subsalicylate [Kaopectate] 1 tab PO ASDIRECTED PRN 03/06/21 [History] Mag Hydrox/Aluminum Hyd/Simeth [Mylanta Maximum Strength Liq] 10 ml PO Q4H PRN 03/06/21 [History] Metoprolol Xl 25 mg PO DAILY 03/06/21 [History] Morphine Sulfate 5 mg PO Q2H PRN 03/06/21 [History] Spironolactone [Aldactone] 25 mg PO DAILY 03/06/21 [History] guaiFENesin [Robitussin] 5 - 10 ml PO Q4H PRN 03/06/21 [History] ondansetron HCL [Zofran] 4 mg PO Q4H PRN 03/06/21 [History] risperiDONE [Risperidone] 2 mg PO DAILY 03/06/21 [History] Forms: ED Department Discharge Referrals: Luís Cespedes MD [Primary Care Provider] - - Discharge Summary/Plan Comment DC Time >30 min.: No - Patient Data Vitals - Most Recent: Last Vital Signs Temp 98.6 F 03/07/21 09:03 Pulse 80 03/07/21 09:03 Resp 18 03/07/21 09:03 BP 136/38 L 03/07/21 09:03 Pulse Ox 82 L 03/07/21 09:03 Weight - Most Recent: 154 lb 14.4 oz Med Orders - Current: Current Medications Discontinued Medications Diphenhydramine HCl (Diphenhydramine 50 Mg/Ml Sdv) 25 mg IVPUSH Q6H PRN PRN Reason: Itching Diphenhydramine HCl (Diphenhydramine 25 Mg Cap) 25 mg PO Q6H PRN PRN Reason: Itching Diphenhydramine HCl (Diphenhydramine 50 Mg/Ml Sdv) 25 mg IVPUSH Q6H PRN PRN Reason: Itching Diphenhydramine HCl (Diphenhydramine 25 Mg Cap) 25 mg PO Q6H PRN PRN Reason: Itching Sodium Chloride (Normal Saline) 1,000 mls @ 999 mls/hr IV ONETIME CELI Last Admin: 03/06/21 16:19 Dose: 999 mls/hr Documented by: Morphine Sulfate 100 mg/ (Sodium Chloride) 100 mls @ 2 mls/hr IV TITRATE CELI Sodium Chloride (Normal Saline) 1,000 mls @ 30 mls/hr IV ASDIRECTED [facility] Insulin Human Regular (Insulin Regular, Human 100 Units/Ml 3 Ml Vial) 8 unit SUBCUT ONETIME ONE Stop: 03/06/21 15:51 Last Admin: 03/06/21 16:19 Dose: 8 unit Documented by: Lorazepam (Lorazepam 2 Mg/Ml Sdv) 2 mg IV Q2HR PRN PRN Reason: Anxiety Last Admin: 03/07/21 01:27 Dose: 2 mg Documented by: Lorazepam (Lorazepam 2 Mg/Ml Sdv) 2 mg IVPUSH Q2HR PRN PRN Reason: Anxiety Lorazepam (Lorazepam 2 Mg/Ml Sdv) 2 mg IVPUSH Q2H PRN PRN Reason: Anxiety Miscellaneous Information (Remove Scopalamine Patch) 1 ea TRDERM Q72H PRN PRN Reason: WHEN SCOPALAMINE PATCH IS ORDE Morphine Sulfate (Morphine 2 Mg/Ml Syringe) 2 mg IVPUSH Q2H PRN PRN Reason: Pain (severe 7-10) Morphine Sulfate (Morphine Pf 30 Mg/30 Ml Recreation Superintendent Vial) 0 mg IV ASDIRECTED ONE; Protocol Stop: 03/06/21 22:01 Last Admin: 03/07/21 08:23 Dose: Not Given Documented by: Morphine Sulfate (Morphine Pf 30 Mg/30 Ml Recreation Superintendent Vial) 0 mg IV ASDIRECTED ONE; Protocol Stop: 03/06/21 22:16 Last Admin: 03/07/21 08:23 Dose: Not Given Documented by: Morphine Sulfate (Morphine Pf 30 Mg/30 Ml Recreation Superintendent Vial) 0 mg IV ASDIRECTED CELI; Protocol Morphine Sulfate (Morphine Pf 30 Mg/30 Ml Recreation Superintendent Vial) 0 mg IV ASDIRECTED PRN; Protocol PRN Reason: Pain Morphine Sulfate (Morphine Pf 30 Mg/30 Ml Recreation Superintendent Vial) 0 mg IV ASDIRECTED PRN; Protocol PRN Reason: Pain Morphine Sulfate (Morphine Pf 30 Mg/30 Ml Recreation Superintendent Vial) 0 mg IV ASDIRECTED PRN; Pro tocol PRN Reason: Pain Last Admin: 03/07/21 20:59 Dose: 30 mg Documented by: Naloxone HCl (Naloxone 0.4 Mg/Ml Sdv) 0.4 mg IVPUSH Q3M PRN PRN Reason: Respiratory Depression Naloxone HCl (Naloxone 0.4 Mg/Ml Sdv) 0.4 mg IVPUSH Q3M PRN PRN Reason: Respiratory Depression Ondansetron HCl (Ondansetron 4 Mg/2 Ml Sdv) 4 mg IVPUSH ONETIME ONE Stop: 03/06/21 15:55 Last Admin: 03/06/21 16:19 Dose: 4 mg Documented by: Ondansetron HCl (Ondansetron 4 Mg Tab.Dis) 4 mg PO Q4H PRN PRN Reason: nausea, able to take PO Ondansetron HCl (Ondansetron 4 Mg/2 Ml Sdv) 4 mg IV Q4H PRN PRN Reason: Nausea/Vomiting Ondansetron HCl (Ondansetron 4 Mg/2 Ml Sdv) 4 mg IVPUSH Q6H PRN PRN Reason: Nausea/Vomiting Ondansetron HCl (Ondansetron 4 Mg/2 Ml Sdv) 4 mg IVPUSH Q6H PRN PRN Reason: Nausea/Vomiting Scopolamine (Scopolamine 1.5 Mg Transdermal Patch) 1.5 mg TRDERM Q72H PRN PRN Reason: secretions Last Admin: 03/07/21 01:36 Dose: 1.5 mg Documented by: Sodium Chloride (Sodium Chloride 0.9% 10 Ml Syringe) 10 ml FLUSH ASDIRECTED PRN PRN Reason: Keep Vein Open Last Admin: 03/06/21 14:07 Dose: 10 ml Documented by: - Exam Physical Findings Comments:: Patient pronounced at 2308, 03/07/2021. exam performed by nursing.
== END 2021-03-08 00:08 | disposition expired | DRG 951 ==
LOC: JD.ED 13:33 → JD.MS 18:16
PROVIDERS: ADMIT Hospitalist; ATTEND Hospitalist
DX: S06.360A Traumatic hemorrhage of cerebrum, unspecified, without loss of consciousness, initial encounter (principal); Z51.5 Encounter for palliative care; S06.5X0A Traumatic subdural hemorrhage without loss of consciousness, initial encounter; C92.10 Chronic myeloid leukemia, BCR/ABL-positive, not having achieved remission; C92.00 Acute myeloblastic leukemia, not having achieved remission; I13.0 Hypertensive heart and chronic kidney disease with heart failure and stage 1 through stage 4 chronic kidney disease, or unspecified chronic kidney disease; E87.1 Hypo-osmolality and hyponatremia; E11.65 Type 2 diabetes mellitus with hyperglycemia; W19.XXXA Unspecified fall, initial encounter; N18.30 Chronic kidney disease, stage 3 unspecified; H54.7 Unspecified visual loss; G24.4 Idiopathic orofacial dystonia; Z87.820 Personal history of traumatic brain injury; E78.00 Pure hypercholesterolemia, unspecified; F32.9 Major depressive disorder, single episode, unspecified; I50.9 Heart failure, unspecified; F79 Unspecified intellectual disabilities; K21.9 Gastro-esophageal reflux disease without esophagitis; E66.9 Obesity, unspecified; Z86.14 Personal history of Methicillin resistant Staphylococcus aureus infection; Z86.16 Personal history of COVID-19; N18.9 Chronic kidney disease, unspecified; I70.1 Atherosclerosis of renal artery; Z88.8 Allergy status to other drugs, medicaments and biological substances; F03.90 Unspecified dementia, unspecified severity, without behavioral disturbance, psychotic disturbance, mood disturbance, and anxiety; Z20.822 Contact with and (suspected) exposure to COVID-19; F31.9 Bipolar disorder, unspecified; G47.00 Insomnia, unspecified; E11.22 Type 2 diabetes mellitus with diabetic chronic kidney disease; E03.9 Hypothyroidism, unspecified; D63.1 Anemia in chronic kidney disease; Z86.19 Personal history of other infectious and parasitic diseases; Z98.49 Cataract extraction status, unspecified eye; Z98.890 Other specified postprocedural states; Z92.21 Personal history of antineoplastic chemotherapy; Z88.6 Allergy status to analgesic agent; Z88.7 Allergy status to serum and vaccine; Z79.899 Other long term (current) drug therapy; Z79.4 Long term (current) use of insulin; Z90.49 Acquired absence of other specified parts of digestive tract; Z98.51 Tubal ligation status; Z87.891 Personal history of nicotine dependence; Z79.890 Hormone replacement therapy
CPT/HCPCS: 36415; 70450; 74019; 80053; 81001; 82947 ×2; 83690; 85007; 85027; 86140; J1815; J2405; J7030; 96374; 99223; 99233; 99238; 99284; 99285-25; A9270-GY; J2060; J2274; U0002